=== PATIENT | female | born 1980 | race Caucasian/White ===

== ENCOUNTER → 2016-10-08 | Outpatient (CLI) | payer OTHER ==
[~2016-10-08] MED LIST: /BACL20TA PO; /LAMO10TA PO; /METH500TA PO; /ONDA4TA JT; /PANT40TA OR; /PANT40TA PO; /PREG100CA PO; /PROC25SU PO; /QUET25TA PO; ABIL15TA PO; ADEK; ADEK PO; AMIT10TA PO; AMIT25TA PO; AMIT25TA10 PO; AMIT50TA PO; AUGM875T27 PO; BACL-67 PO; BACL10TA2 OR; BENT10CA PO; BENZ1TA PO; BIOT5000 PO; BIOT50004 PO; BIOTENE PO; BOTO10VL IM; BUTR10DI2 TD; CALCIUM PO; CALCLIQ4 PO; CALCTAB68 PO; CAMP333T PO; CARA1SUS PO; CARA1TAB2 PO; CHAN1PAK9 PO; CHLO500TA PO; CIPR500T19 PO; CLAR5CHW OR; CLEO150C PO; COLA50CA3 PO; COLACE PO; CYCL10TA3 PO; CYMB1CAP PO; DHEA OR; DHEA PO; DICLOFENAC; DOCQ100C PO; DOXE150C7 PO; DOXY-197 PO; DOXY20TA OR; EQL400TA PO; ESTR0.5T3 PV; FENT12DI2 TD; FENT75DI18 TD; FERR325T OR; FESO4 OR; FLEX10TA2 PO; FLUC10TA PO; Fentanyl Patch TD; Flexeril PO; GABA-283 PO; GABA300C3 PO; HYDRPOW48 XX; IMIT4KIT SC; IMIT4KIT2 SC; IMIT50TA PO; IRON325T3 PO; Imitrex PO; KETO30VL PO; KLON1TAB OR; KLON1TAB PO; LORA10TA2 PO; LUNE3TAB48 PO; LYRI150C PO; LYRI75CA PO; MAGN250T PO; MAPA325T2 PO; MEGE40TA PO; MIRA0.5T PO; MULTCAP11 PO; MULTTAB24 PO; MULTTAB4 PO; NARA2.5T PO; NICO21DI24 TD; NIFE10CA2 PO; NORC5TAB PO; NORCO OR; NORT50CA PO; OMEP20CA3 PO; OXYC1SOL PO; OXYC5CAP2 PO; OXYC5TAB2 PO; OXYCO5TA PO; OYST500T50 PO; PERC5TAB6 PO; PERCTAB PO; PREG50CA PO; PREM0.45 PO; PROC10CA PO; PROC30TA PO; PROC90TA PO; PROM-190 PO; PROM25TA PO; PROT1TAB2 PO; PROTPAK PO; PROZ20CA11 PO; PROZ40CA OR; PYRI200T5 PO; RITA10TA PO; RITA20CA PO; ROBA750T4 PO; SAPH1SUB10 SL; SAPH1SUB9 SL; SENN8.6C PO; SERO200T PO; SERO50TA PO; SOMA350T OR; STRA80CA PO; SUCR1TA PO; TIZA4CAP3 PO; TIZA4TAB3 PO; TRIL1TAB PO; TRIL300S PO; TYLE325T5 PO; TYLE500T78 PO; Tylenol PO; VALI10TA PO; VALI5TAB PO; VARE1TA PO; VIBR100C OR; VICO5TAB; VIST25CA PO; VIST50CA PO; VIT B12 PO; VITA100037 PO; VITATAB11 PO; VYVA50CA PO; VYVA70CA3 PO; XANA0.5T OR; ZETONNA; ZOFR20TA PO; ZOFR4SOL PO; ZOFRAN PO; ZOLO100T PO; ZYPR10TA PO; ZYRT10CA PO; [UNRECOGNIZED DRUG - CODE]; [UNRECOGNIZED DRUG - CODE]; [UNRECOGNIZED DRUG - CODE] OR; [UNRECOGNIZED DRUG - CODE] PO; [UNRECOGNIZED DRUG - CODE] PO; [UNRECOGNIZED DRUG - CODE] PO; [UNRECOGNIZED DRUG - CODE] PO; [UNRECOGNIZED DRUG - CODE] PR; [UNRECOGNIZED DRUG - CODE] TOP; [UNRECOGNIZED DRUG - OTHER] PO; [UNRECOGNIZED DRUG - OTHER] PO; [UNRECOGNIZED DRUG - OTHER] PO; anexsia PO; atarax PO; calci; phenergan PO; voltaren gel; voltaren gel 1% TOP
--- NOTE | 2016-10-08 15:37 | REP ---
CT chest without contrast, 10/08/2016: Indication: Productive cough, fever chills, aspiration. Abnormal chest radiograph; history of prior gastric bypass surgery. Comparison made with prior chest radiograph 03/12/2016, 12/09/2015, 11/30/2015. Technique: 3 mm contiguous spiral axial sections performed through chest without contrast. Comparison: CTs of chest 03/12/2016, 12/09/2015, 11/30/2015, chest radiograph 03/16/2014 Technique: 3 mm spiral axial sections were performed through the chest without IV contrast administration. Findings: Thoracic aorta without aneurysm. The heart is of normal size. There are left and right-sided superior vena cavas noted as anatomic variant. There are no pathologically enlarged mediastinal or hilar lymph nodes. There is some pleural thickening within the superior lateral aspect of the right major fissure as well as the right minor fissure. Nodular pleural thickening is seen within the right inferior chest. Previous abscess in the region of the minor fissure seen 12/09/2015 is significantly improved and/or resolved with residual pleuro-parenchymal scarring. The left lung is clear. Visualized portions of liver, spleen, pancreas are unremarkable. There has been a prior cholecystectomy. Patient has had prior gastric bypass surgery. Impression. 1. Scarring within the minor fissure. Some pleural thickening in this location as well. Findings are not significantly changed from 03/12/2016, and significantly improved from 12/09/2015. Recommend follow-up CT chest 3-6 months. 2. Prior gastric bypass procedure and cholecystectomy. Signed by Mable Henson MD 10/08/2016 08:32 P
== END ==
LOC: M RAD 07:17
PROVIDERS: ATTEND Physician Assistant
DX: R93.8 Abnormal findings on diagnostic imaging of other specified body structures (principal); Z98.84 Bariatric surgery status; Z90.49 Acquired absence of other specified parts of digestive tract

== ENCOUNTER 2016-10-11 13:11 | Emergency (ER) | payer OTHER ==
[2016-10-11] MEDS ORDERED: ACETAMINOPHEN 325 MG TAB As Ordered ONE (14:33)
[2016-10-11] MEDS ORDERED: ADACEL/BOOSTRIX VACCINE (DIPHTH/PERTUSS/ACELL/TETANUS)0.5ML SYR (90715) As Ordered ONE (14:33)
--- NOTE | 2016-10-11 16:04 | REP ---
LEFT KNEE, FIVE VIEWS: HISTORY: Injury. There is no acute fracture or dislocation. The joint spaces are normal in appearance. IMPRESSION: There is no acute fracture or dislocation. Signed by Mino Lomax MD 10/11/2016 04:11 P
--- NOTE | 2016-10-11 16:10 | EDDOCDS ---
Physician Documentation [facility] Name: Alyssa Garvey Age: 36 yrs Sex: Female : 1980 Arrival Date: 10/11/2016 Time: 13:11 Bed PR Private MD: Sushant Hanson R. Disposition: 10/11/16 15:58 Discharged to Home/Self Care. Impression: Fall due to ice and snow, Abrasion of right hand, Abrasion, left knee, Strain of muscle and tendon of back wall of thorax. - Condition is Stable. - Discharge Instructions: Abrasion, Muscle Strain. - Medication Reconciliation, Local Pharmacy Hours form. - Follow up: Emergency Department; When: As needed; Reason: Worsening of conditions. Follow up: Private Physician; When: 2 - 3 days; Reason: Wound/Symptom Recheck, Recheck today's complaints, Continuance of care. - Problem is new. - Symptoms are unchanged. - Notes: YOUR XRAYS SHOWED SOME DEGENERATIVE DISC DISEASE IN YOUR BACK, THAT MEANS THE DISC SPACES NARROW WE AGE AND THIS CAN BE NORMAL. THERE IS NO FRACTURES ON YOUR XRAYS TODAY. YOU CAN TAKE TYLENOL OR MOTRIN DIRECTED FOR YOUR PAIN. PLEASE FOLLOW UP WITH YOUR PRIMARY CARE PROVIDER IN THE NEXT FEW DAYS TO RECHECK YOUR SYMPTOMS. Historical: - Allergies: Dilaudid; Gastrografin; Ketorolac; Latex; Morphine; - Home Meds: 1. Xanax 1 mg Oral tab four times a day (Last dose: 10/11/2016 10:30) 2. saphris 10 mg twice a day (Last dose: 10/11/2016 10:30) 3. Phenergan 25 mg Oral tab every 4-6 hours 4. AMURGE PRN MIGRAINE 5. Imitrex 6 mg/0.5 mL Sub-Q soln 0.5 mL as needed 6. Vyvanse 70 mg oral cap 1 cap once daily 7. Singulair 10 mg Oral tab 1 tab once daily 8. Claritin 10 mg Oral tab 1 tab once daily 9. Flonase 50 mcg/actuation Nasal spsn 1 spray once daily 10. Chantix 0.5 mg Oral tab - PMHx: Bipolar disorder; Chronic Back pain; GERD; - PSHx: revisional gastric bypass; back surgery; Gastric Bypass; Hysterectomy; Endoscopy, Upper; Colonoscopy; Cholecystectomy; Appendectomy; - Social history: Smoking status: Patient uses tobacco products, current every day smoker. No barriers to communication noted, The patient speaks fluent Nicaraguan, Speaks appropriately for age. - Family history: Not pertinent. - : The pt / caregiver states he / she is not on anticoagulants. Home medication list is obtained from the patient. - Exposure Risk Screening:: None identified. 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 7 in. (170.18 cm) (R); Pain 9/10; 16:07 js13 13:12 Body Mass Index 28.19 (81.65 kg, 170.18 cm) elp 16:07 REFUSED D/C VS js13 MDM: 14:30 Tetanus- Diptheria-Acellular Pertussis 0.5 ml IM once; Routine booster 10-64yrs, >64 dt4 with child contact [place] [employer] ordered. 14:30 Acetaminophen Tablet 975 mg PO once ordered. dt4 14:31 Knee, Complete Ordered. EDMS 14:31 Hand, Complete Ordered. EDMS 14:32 Spine, Thoracic 3 Views Ordered. EDMS 14:32 Spine. Lumbosacral, Complete Ordered. EDMS 14:34 Urinalysis Ordered. EDMS 14:34 Urine Culture Ordered. EDMS 15:00 Financial registration complete. mm15 15:21 [facility] Payment Agreement was scanned into [employer] and attached to record. 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 Exp: 11/21/2018. Lot #: [id number]. } Route: IM; Site: left deltoid; 14:51 Drug: Acetaminophen 975 mg [acetaminophen 325 mg tablet (3 tabs)] Route: PO; [facility] Signatures: Dispatcher [employer] Monica Torres, RN RN srm Janice Crane RN RN js13 Hola Wilcox mm15 Suzanna Ireland PA-C PA-C dt4 Leora Fishman RN [facility] The chart was reviewed and I authenticate all verbal orders and agree with the evaluation and treatment provided.Attachments: 15:21 [facility] Payment Agreement mm15 MTDD
--- NOTE | 2016-10-11 16:10 | EDDOCDS ---
Nurse's Notes [facility] Name: Alyssa Garvey Age: 36 yrs Sex: Female : 1980 Arrival Date: 10/11/2016 Time: 13:11 Bed PR Private MD: Sushant Hanson R. Diagnosis: Fall due to ice and snow;Abrasion of right hand;Abrasion, left knee;Strain of muscle and tendon of back wall of thorax Presentation: 10/11 13:15 Presenting complaint: Patient states: fell twice last night- everything form shoulder srm to hips hurts. " i also have blood coming out of my vagina" ( started this am). Presenting complaint: Patient states: i drink a lot of water but doesn't pee a lot- sees PMD for those symptoms. Adult Sepsis Screening: The patient does not have new or worsening altered mentation. Patient's respiratory rate is less than 22. Systolic blood pressure is greater than 100. Patient has a qSOFA score of 0- Negative Sepsis Screen. Suicide/Homicide risk assessment- the patient denies having any suicidal and/or homicidal ideations and does not present with any other emotional, behavioral or mental health complaints. 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 Transition of care: patient was not received from another setting of care. 13:15 Method Of Arrival: Walkin/Carried/Asstd srm 13:15 Acuity: SANJUANITA Level 3 srm Triage Assessment: 13:21 General: Appears in no apparent distress, Behavior is appropriate for age, cooperative. srm Pain: Pain currently is 10 out of 10 on a pain scale. HIV screening NA for this visit Offered previously. Musculoskeletal: Reports from shoulders to hips hurts. 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 Xanax 1 mg Oral tab four times a day (Last dose: 10/11/2016 10:30) 2. saphris 10 mg twice a day (Last dose: 10/11/2016 10:30) 3. Phenergan 25 mg Oral tab every 4-6 hours 4. AMURGE PRN MIGRAINE 5. Imitrex 6 mg/0.5 mL Sub-Q soln 0.5 mL as needed 6. Vyvanse 70 mg oral cap 1 cap once daily 7. Singulair 10 mg Oral tab 1 tab once daily 8. Claritin 10 mg Oral tab 1 tab once daily 9. Flonase 50 mcg/actuation Nasal spsn 1 spray once daily 10. Chantix 0.5 mg Oral tab - PMHx: Bipolar disorder; Chronic Back pain; GERD; - PSHx: revisional gastric bypass; back surgery; Gastric Bypass; Hysterectomy; Endoscopy, Upper; Colonoscopy; Cholecystectomy; Appendectomy; - Social history: Smoking status: Patient uses tobacco products, current every day smoker. No barriers to communication noted, The patient speaks fluent Divehi, Speaks appropriately for age. - Family history: Not pertinent. - : The pt / caregiver states he / she is not on anticoagulants. Home medication list is obtained from the patient. - Exposure Risk Screening:: None identified. Screenin:07 Screening information is obtained from the patient. Fall risk: At risk due to prior [facility] history of falls. Assistance ADL's: requires no assistance with activities of daily living. Abuse/DV Screen: The patient / caregiver reports he/she is: not in a situation that causes fear, pain or injury. Nutritional screening: No deficits noted. Advance Directives: There is no active DNR order. home support is adequate. Assessment: 16:07 General: Appears in no apparent distress, Behavior is PATIENT STATES THIS IS "BULLSHIT" [facility] AND THAT SHE IS GOING TO [place] TO GET HER FENTANYL THAT WILL WORK FOR HER PAIN. . Pain: Location: back. Neurological: Level of Consciousness is awake, alert. Respiratory: No deficits noted. Derm: Skin is pink, warm & dry. Musculoskeletal: Range of motion intact in all extremities. Vital Signs: 13:12 BP 165 / 97; Pulse 115; Resp 20; Temp 97.3(O); Pulse Ox 99% on R/A; Weight 81.65 kg el (R); Height 5 ft. 7 in. (170.18 cm) (R); Pain 9/10; 16:07 js13 13:12 Body Mass Index 28.19 (81.65 kg, 170.18 cm) [facility] 16:07 REFUSED D/C VS 13 Vitals: 13:12 Log In Time: October 11, 2016 at 13:09. elp ED Course: 13:12 Patient visited by Anisa Escobar PCA. elp 13:12 Sushant Hanson is Private Physician. elp 13:12 Patient moved to Waiting elp 13:14 Patient visited by Anisa Escobar PCA. elp 13:14 Patient moved to Pre RCE elp 13:17 Triage Initiated srm 14:03 Patient visited by Filomena Hutson PCA. jb5 14:03 Patient moved to Triage 2 jb5 14:09 [facility] dt4 14:09 Antony Hernandez MD is Attending Physician. dt4 14:09 Patient visited by Suzanna Ireland PA-C. dt4 14:45 Urinalysis Sent. jb5 14:45 Urine Culture Sent. jb5 14:50 Patient moved to TR2 [facility] 15:12 Patient visited by Filomena Hutson PCA. jb5 15:21 ON LICENSE OF [facility] Payment Agreement was scanned into [employer] and attached to record. mm15 16:05 Patient moved to PR1 / 25 [facility] 16:07 The patient / caregiver is instructed regarding the plan of care and ED course. js13 16:07 No IV's were initiated during this patient's visit. No procedures done that require [facility] assistance. 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 Lot #: [id number]. } Route: IM; Site: left deltoid; 14:51 Drug: Acetaminophen 975 mg [acetaminophen 325 mg tablet (3 tabs)] Route: PO; [facility] Order Results: There are currently no results for this order. Outcome: 15:58 Discharge ordered by Provider. dt4 16:07 Discharge Assessment: Patient awake, alert and oriented x 3. No cognitive and/or js13 functional deficits noted. Patient verbalized understanding of disposition instructions. patient administered narcotics - no. The following High Risk Discharge criteria are identified: None. Discharged to home ambulatory, with parent. Condition: stable. Discharge instructions given to patient, Instructed on discharge instructions, follow up and referral plans. Demonstrated understanding of instructions, Pt was receptive of discharge instructions/ teaching. No special radiology studies were completed. Property :Personal belongings accompany Pt. 16:09 Patient left the ED. js13 Signatures: Monica Graves, RN RN Filomena Corrales, CHEMICAL RADIATION TECHNICIAN CHEMICAL RADIATION TECHNICIAN jb5 Janice Crane RN RN js13 Leora FishmanRN RN [facility] Hola Wilcox mm15 Anisa Escobar, CHEMICAL RADIATION TECHNICIAN CHEMICAL RADIATION TECHNICIAN elp Suzanna Ireland PA-C PA-C dt4 MTDD
--- NOTE | 2016-10-12 14:40 | REP ---
Lumbosacral spine series, five view exam 10/11/2016 Comparison: MRI of the lumbosacral spine performed 09/04/2016, CT abdomen and pelvis 12/12/15 Findings: There is mild generalized osteopenia. There is no acute fracture or spondylolisthesis in lumbosacral spine. Moderate to advanced disc space narrowing is noted at L4-5. There is mild disc space narrowing at L5- S1. The visualized portions of the SI joints and sacrum and visualized portions of coccyx are with the within normal limits. There is dilatation of colon. Thumbprinting is suggested within the region of the hepatic flexure. Impression 1. Moderate to advanced degenerative disc changes at L4-5 ;mild disc space narrowing/degenerative disc changes at L5- S1. 2. Generalized osteopenia. 3. Colonic distension, suggests ileus. Also thumb printing is suggested within the region of the hepatic flexure and can indicate mural edema within bowel. This can be seen with inflammatory, infectious or ischemic bowel. Clinical follow-up recommended Signed by Mable Henson MD 10/12/2016 02:31 P
--- NOTE | 2016-10-12 14:50 | REP ---
Thoracic spine series 10/11/16 Indication: Back pain status post fall findings Comparison: Thoracic spine series 10/24/2015 Findings: There is no evidence of paraspinal widening. The mediastinal silhouette is unchanged and within normal limits. There is generalized osteopenia within the thoracic spine. There is no visualized acute fracture . There is very minimal thoracic levoscoliosis again noted. Surgical clips are noted in the right upper quadrant and left upper quadrant Impression 1. Osteopenia; no evidence of acute fracture or paraspinal widening in the thoracic spine Signed by Mable Henson MD 10/12/2016 02:41 P
--- NOTE | 2016-10-12 14:53 | REP ---
Four view right hand series 10/11 16 Indication: Injury Findings: There is mild generalized osteopenia. There is no acute fracture, subluxation, or dislocation within the right hand. The carpal bones are without fracture or displacement. Subchondral cystic changes are seen within the scaphoid and lunate, and are nonspecific. Visualized portions of distal radius and ulna are intact. Impression: 1. Mild generalized osteopenia . 2. No acute fracture or dislocation within the right hand or wrist. Signed by Mable Henson MD 10/12/2016 02:44 P
--- NOTE | 2016-10-15 09:25 | EDDOCDS ---
Physician Documentation [facility] Name: Alyssa Garvey Age: 36 yrs Sex: Female : 1980 Arrival Date: 10/11/2016 Time: 13:11 Bed PR Private MD: Natividad Hanson R. Disposition: 10/11/16 15:58 Discharged to Home/Self Care. Impression: Fall due to ice and snow, Abrasion of right hand, Abrasion, left knee, Strain of muscle and tendon of back wall of thorax. - Condition is Stable. - Discharge Instructions: Abrasion, Muscle Strain. - Medication Reconciliation, Local Pharmacy Hours form. - Follow up: Emergency Department; When: As needed; Reason: Worsening of conditions. Follow up: Private Physician; When: 2 - 3 days; Reason: Wound/Symptom Recheck, Recheck today's complaints, Continuance of care. - Problem is new. - Symptoms are unchanged. - Notes: YOUR XRAYS SHOWED SOME DEGENERATIVE DISC DISEASE IN YOUR BACK, THAT MEANS THE DISC SPACES NARROW WE AGE AND THIS CAN BE NORMAL. THERE IS NO FRACTURES ON YOUR XRAYS TODAY. YOU CAN TAKE TYLENOL OR MOTRIN DIRECTED FOR YOUR PAIN. PLEASE FOLLOW UP WITH YOUR PRIMARY CARE PROVIDER IN THE NEXT FEW DAYS TO RECHECK YOUR SYMPTOMS. Historical: - Allergies: Dilaudid; Gastrografin; Ketorolac; Latex; Morphine; - Home Meds: 1. Xanax 1 mg Oral tab four times a day (Last dose: 10/11/2016 10:30) 2. saphris 10 mg twice a day (Last dose: 10/11/2016 10:30) 3. Phenergan 25 mg Oral tab every 4-6 hours 4. AMURGE PRN MIGRAINE 5. Imitrex 6 mg/0.5 mL Sub-Q soln 0.5 mL as needed 6. Vyvanse 70 mg oral cap 1 cap once daily 7. Singulair 10 mg Oral tab 1 tab once daily 8. Claritin 10 mg Oral tab 1 tab once daily 9. Flonase 50 mcg/actuation Nasal spsn 1 spray once daily 10. Chantix 0.5 mg Oral tab - PMHx: Bipolar disorder; Chronic Back pain; GERD; - PSHx: revisional gastric bypass; back surgery; Gastric Bypass; Hysterectomy; Endoscopy, Upper; Colonoscopy; Cholecystectomy; Appendectomy; - Social history: Smoking status: Patient uses tobacco products, current every day smoker. No barriers to communication noted, The patient speaks fluent Moldovan, Speaks appropriately for age. - Family history: Not pertinent. - : The pt / caregiver states he / she is not on anticoagulants. Home medication list is obtained from the patient. - Exposure Risk Screening:: None identified. 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 7 in. (170.18 cm) (R); Pain 9/10; 16:07 js13 13:12 Body Mass Index 28.19 (81.65 kg, 170.18 cm) elp 16:07 REFUSED D/C VS js13 MDM: 14:30 Tetanus- Diptheria-Acellular Pertussis 0.5 ml IM once; Routine booster 10-64yrs, >64 dt4 with child contact [place] Omnicell ordered. 14:30 Acetaminophen Tablet 975 mg PO once ordered. dt4 14:31 Knee, Complete Ordered. EDMS 14:31 Hand, Complete Ordered. EDMS 14:32 Spine, Thoracic 3 Views Ordered. EDMS 14:32 Spine. Lumbosacral, Complete Ordered. EDMS 14:34 Urinalysis Ordered. EDMS 14:34 Urine Culture Ordered. EDMS 15:00 Financial registration complete. mm15 15:21 [facility] Payment Agreement was scanned into 24h00 and attached to record. mm15 10/12 09:32 T-Sheet-- Draft Copy was scanned into 24h00 and attached to record. seh 12:25 Other: DRUG UTILIZATION REPORT was scanned into 24h00 and attached to record. gb 12:25 Radiology Report was scanned into 24h00 and attached to record. gb 19:33 ED course: natividad hanson faxed formal report of ls spine film for fu mlg. ml Administered Medications: 10/11 14:51 Drug: Tetanus- Diptheria-Acellular Pertussis 0.5 ml [diphth,pertussis(acel),tetanus 2.5 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 Lot #: [id number]. } Route: IM; Site: left deltoid; 14:51 Drug: Acetaminophen 975 mg [acetaminophen 325 mg tablet (3 tabs)] Route: PO; [facility] Signatures: Dispatcher [employer] EDTobi Cobos MD MD Monica Graves RN RN [facility] Soniya Londono, Reg Reg Janice Crane RN RN js13 Hola Wilcox mm15 Suzanna Ireland PA-C PA-C dt4 Nia Oneil Jane RN [facility] The chart was reviewed and I authenticate all verbal orders and agree with the evaluation and treatment provided.Attachments: 15:21 [facility] Payment Agreement mm15 10/12 09:32 T-Sheet-- Draft Copy [facility] Chart Complete MTDD
--- NOTE | 2016-10-15 09:25 | EDDOCDS ---
Nurse's Notes [facility] Name: Alyssa Garvey Age: 36 yrs Sex: Female : 1980 Arrival Date: 10/11/2016 Time: 13:11 Bed PR Private MD: Sushant Hanson R. Diagnosis: Fall due to ice and snow;Abrasion of right hand;Abrasion, left knee;Strain of muscle and tendon of back wall of thorax Presentation: 10/11 13:15 Presenting complaint: Patient states: fell twice last night- everything form shoulder srm to hips hurts. " i also have blood coming out of my vagina" ( started this am). Presenting complaint: Patient states: i drink a lot of water but doesn't pee a lot- sees PMD for those symptoms. Adult Sepsis Screening: The patient does not have new or worsening altered mentation. Patient's respiratory rate is less than 22. Systolic blood pressure is greater than 100. Patient has a qSOFA score of 0- Negative Sepsis Screen. Suicide/Homicide risk assessment- the patient denies having any suicidal and/or homicidal ideations and does not present with any other emotional, behavioral or mental health complaints. Status: Patient is not a community service technician or dependent. Transition of care: patient was not received from another setting of care. 13:15 Method Of Arrival: Walkin/Carried/Asstd srm 13:15 Acuity: SANJUANITA Level 3 srm Triage Assessment: 13:21 General: Appears in no apparent distress, Behavior is appropriate for age, cooperative. srm Pain: Pain currently is 10 out of 10 on a pain scale. HIV screening NA for this visit Offered previously. Musculoskeletal: Reports from shoulders to hips hurts. 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 Xanax 1 mg Oral tab four times a day (Last dose: 10/11/2016 10:30) 2. saphris 10 mg twice a day (Last dose: 10/11/2016 10:30) 3. Phenergan 25 mg Oral tab every 4-6 hours 4. AMURGE PRN MIGRAINE 5. Imitrex 6 mg/0.5 mL Sub-Q soln 0.5 mL as needed 6. Vyvanse 70 mg oral cap 1 cap once daily 7. Singulair 10 mg Oral tab 1 tab once daily 8. Claritin 10 mg Oral tab 1 tab once daily 9. Flonase 50 mcg/actuation Nasal spsn 1 spray once daily 10. Chantix 0.5 mg Oral tab - PMHx: Bipolar disorder; Chronic Back pain; GERD; - PSHx: revisional gastric bypass; back surgery; Gastric Bypass; Hysterectomy; Endoscopy, Upper; Colonoscopy; Cholecystectomy; Appendectomy; - Social history: Smoking status: Patient uses tobacco products, current every day smoker. No barriers to communication noted, The patient speaks fluent Frisian, Speaks appropriately for age. - Family history: Not pertinent. - : The pt / caregiver states he / she is not on anticoagulants. Home medication list is obtained from the patient. - Exposure Risk Screening:: None identified. Screenin:07 Screening information is obtained from the patient. Fall risk: At risk due to prior [facility] history of falls. Assistance ADL's: requires no assistance with activities of daily living. Abuse/DV Screen: The patient / caregiver reports he/she is: not in a situation that causes fear, pain or injury. Nutritional screening: No deficits noted. Advance Directives: There is no active DNR order. home support is adequate. Assessment: 16:07 General: Appears in no apparent distress, Behavior is PATIENT STATES THIS IS "BULLSHIT" [facility] AND THAT SHE IS GOING TO [place] TO GET HER FENTANYL THAT WILL WORK FOR HER PAIN. . Pain: Location: back. Neurological: Level of Consciousness is awake, alert. Respiratory: No deficits noted. Derm: Skin is pink, warm & dry. Musculoskeletal: Range of motion intact in all extremities. Vital Signs: 13:12 BP 165 / 97; Pulse 115; Resp 20; Temp 97.3(O); Pulse Ox 99% on R/A; Weight 81.65 kg el (R); Height 5 ft. 7 in. (170.18 cm) (R); Pain 9/10; 16:07 js13 13:12 Body Mass Index 28.19 (81.65 kg, 170.18 cm) [facility] 16:07 REFUSED D/C VS 13 Vitals: 13:12 Log In Time: October 11, 2016 at 13:09. elp ED Course: 13:12 Patient visited by Anisa Escobar PCA. elp 13:12 Sushant Hanson is Private Physician. elp 13:12 Patient moved to Waiting elp 13:14 Patient visited by Anisa Escobar PCA. elp 13:14 Patient moved to Pre RCE elp 13:17 Triage Initiated srm 14:03 Patient visited by Filomena Hutson PCA. jb5 14:03 Patient moved to Triage 2 jb5 14:09 Suzanna Ireland PA-C is PHCP. dt4 14:09 Antony Hernandez MD is Attending Physician. dt4 14:09 Patient visited by Suzanna Ireland PA-C. dt4 14:45 Urinalysis Sent. jb5 14:45 Urine Culture Sent. jb5 14:50 Patient moved to TR2 cj 15:12 Patient visited by Filomena Hutson PCA. jb5 15:21 [facility] Payment Agreement was scanned into [employer] and attached to record. mm15 16:05 Patient moved to PR1 / 25 [facility] 16:07 The patient / caregiver is instructed regarding the plan of care and ED course. js13 16:07 No IV's were initiated during this patient's visit. No procedures done that require js13 assistance. 16:16 Knee, Complete Returned. EDMS 10/12 09:32 T-Sheet-- Draft Copy was scanned into [employer] and attached to record. seh 12:25 Other: DRUG UTILIZATION REPORT was scanned into [employer] and attached to record. gb 12:25 Radiology Report was scanned into [employer] and attached to record. gb 15:09 Spine. Lumbosacral, Complete Returned. EDMS 15:09 Spine, Thoracic 3 Views Returned. EDMS 15:09 Hand, Complete Returned. EDMS Administered Medications: 10/11 14:51 Drug: Tetanus- Diptheria-Acellular Pertussis 0.5 ml [diphth,pertussis(acel),tetanus 2.5 [facility] Lf unit-8 mcg-5 Lf/0.5mL IM syringe (0.5 mL)] {Bill Board Poster: [employer]. Exp: 11/21/2018. Lot #: [id number]. } Route: IM; Site: left deltoid; 14:51 Drug: Acetaminophen 975 mg [acetaminophen 325 mg tablet (3 tabs)] Route: PO; [facility] Order Results: Lab Order: Urine Culture; SPEC'M 10/11/16 14:47 Test: URINE CULTURE; Value: URINE CULTURE RESULT NO GROWTH; Status: F Radiology Order: Knee, Complete Test: Knee, Complete REASON FOR EXAMINATION: left knee injury; LEFT KNEE, FIVE VIEWS:; ; HISTORY: Injury.; ; There is no acute fracture or dislocation. The joint spaces are normal in; appearance.; ; IMPRESSION:; ; There is no acute fracture or dislocation.; ; ; Signed by; Mino Lomax MD 10/11/2016 04:11 P; Radiology Order: Hand, Complete Test: Hand, Complete REASON FOR EXAMINATION: right hand injury; Four view right hand series 10/11 16; ; Indication: Injury; ; Findings: There is mild generalized osteopenia. There is no acute fracture,; subluxation, or dislocation within the right hand. The carpal bones are without; fracture or displacement. Subchondral cystic changes are seen within the; scaphoid and lunate, and are nonspecific. Visualized portions of distal radius; and ulna are intact.; ; Impression:; ; 1. Mild generalized osteopenia .; 2. No acute fracture or dislocation within the right hand or wrist.; ; ; Signed by; Mable Henson MD 10/12/2016 02:44 P; Radiology Order: Spine, Thoracic 3 Views Test: Spine, Thoracic 3 Views REASON FOR EXAMINATION: mid back pain, s/p fall on ice; Thoracic spine series 10/11/16; ; Indication: Back pain status post fall findings; ; Comparison: Thoracic spine series 10/24/2015; ; Findings: There is no evidence of paraspinal widening. The mediastinal; silhouette is unchanged and within normal limits.; ; There is generalized osteopenia within the thoracic spine. There is no; visualized acute fracture . There is very minimal thoracic levoscoliosis again; noted.; ; Surgical clips are noted in the right upper quadrant and left upper quadrant; ; Impression; 1. Osteopenia; no evidence of acute fracture or paraspinal widening in the; thoracic spine; ; ; Signed by; Mable Henson MD 10/12/2016 02:41 P; Radiology Order: Spine. Lumbosacral, Complete Test: Spine. Lumbosacral, Complete REASON FOR EXAMINATION: low back pain, s/p fall on ice; Lumbosacral spine series, five view exam 10/11/2016; ; Comparison: MRI of the lumbosacral spine performed 09/04/2016, CT abdomen and; pelvis 12/12/15; ; Findings: There is mild generalized osteopenia. There is no acute fracture or; spondylolisthesis in lumbosacral spine. Moderate to advanced disc space; narrowing is noted at L4-5. There is mild disc space narrowing at L5- S1.; ; The visualized portions of the SI joints and sacrum and visualized portions of; coccyx are with the within normal limits.; ; There is dilatation of colon. Thumbprinting is suggested within the region of the; hepatic flexure.; ; Impression; 1. Moderate to advanced degenerative disc changes at L4-5 ;mild disc space; narrowing/degenerative disc changes at L5- S1.; ; 2. Generalized osteopenia.; ; 3. Colonic distension, suggests ileus. Also thumb printing is suggested within; the region of the hepatic flexure and can indicate mural edema within bowel.; This can be seen with inflammatory, infectious or ischemic bowel. Clinical; follow-up recommended; ; ; Signed by; Mable Henson MD 10/12/2016 02:31 P; Outcome: 15:58 Discharge ordered by Provider. dt4 16:07 Discharge Assessment: Patient awake, alert and oriented x 3. No cognitive and/or js13 functional deficits noted. Patient verbalized understanding of disposition instructions. patient administered narcotics - no. The following High Risk Discharge criteria are identified: None. Discharged to home ambulatory, with parent. Condition: stable. Discharge instructions given to patient, Instructed on discharge instructions, follow up and referral plans. Demonstrated understanding of instructions, Pt was receptive of discharge instructions/ teaching. No special radiology studies were completed. Property :Personal belongings accompany Pt. 16:09 Patient left the ED. js13 Signatures: Dispatcher [employer] EDMS Monica Graves, RN RN [facility] Soniya Londono, Antonio Reg Filomena Medina, AGENT PRODUCER AGENT PRODUCER jb5 Janice Crane RN RN js13 Leora Fishman RN RN [facility] Hola Wilcox mm15 Anisa Escobar, AGENT PRODUCER AGENT PRODUCER elp Suzanna Ireland PA-C PA-C dt4 Nia Oneil Chart Complete MTDD
--- NOTE | 2016-10-15 09:25 | EDDOCDS ---
Physician Documentation [facility] Name: Alyssa Garvey Age: 36 yrs Sex: Female : 1980 Arrival Date: 10/11/2016 Time: 13:11 Bed PR Private MD: Natividad Hanson R. Disposition: 10/11/16 15:58 Discharged to Home/Self Care. Impression: Fall due to ice and snow, Abrasion of right hand, Abrasion, left knee, Strain of muscle and tendon of back wall of thorax. - Condition is Stable. - Discharge Instructions: Abrasion, Muscle Strain. - Medication Reconciliation, Local Pharmacy Hours form. - Follow up: Emergency Department; When: As needed; Reason: Worsening of conditions. Follow up: Private Physician; When: 2 - 3 days; Reason: Wound/Symptom Recheck, Recheck today's complaints, Continuance of care. - Problem is new. - Symptoms are unchanged. - Notes: YOUR XRAYS SHOWED SOME DEGENERATIVE DISC DISEASE IN YOUR BACK, THAT MEANS THE DISC SPACES NARROW WE AGE AND THIS CAN BE NORMAL. THERE IS NO FRACTURES ON YOUR XRAYS TODAY. YOU CAN TAKE TYLENOL OR MOTRIN DIRECTED FOR YOUR PAIN. PLEASE FOLLOW UP WITH YOUR PRIMARY CARE PROVIDER IN THE NEXT FEW DAYS TO RECHECK YOUR SYMPTOMS. Historical: - Allergies: Dilaudid; Gastrografin; Ketorolac; Latex; Morphine; - Home Meds: 1. Xanax 1 mg Oral tab four times a day (Last dose: 10/11/2016 10:30) 2. saphris 10 mg twice a day (Last dose: 10/11/2016 10:30) 3. Phenergan 25 mg Oral tab every 4-6 hours 4. AMURGE PRN MIGRAINE 5. Imitrex 6 mg/0.5 mL Sub-Q soln 0.5 mL as needed 6. Vyvanse 70 mg oral cap 1 cap once daily 7. Singulair 10 mg Oral tab 1 tab once daily 8. Claritin 10 mg Oral tab 1 tab once daily 9. Flonase 50 mcg/actuation Nasal spsn 1 spray once daily 10. Chantix 0.5 mg Oral tab - PMHx: Bipolar disorder; Chronic Back pain; GERD; - PSHx: revisional gastric bypass; back surgery; Gastric Bypass; Hysterectomy; Endoscopy, Upper; Colonoscopy; Cholecystectomy; Appendectomy; - Social history: Smoking status: Patient uses tobacco products, current every day smoker. No barriers to communication noted, The patient speaks fluent Panamanian, Speaks appropriately for age. - Family history: Not pertinent. - : The pt / caregiver states he / she is not on anticoagulants. Home medication list is obtained from the patient. - Exposure Risk Screening:: None identified. 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 7 in. (170.18 cm) (R); Pain 9/10; 16:07 js13 13:12 Body Mass Index 28.19 (81.65 kg, 170.18 cm) elp 16:07 REFUSED D/C VS js13 MDM: 14:30 Tetanus- Diptheria-Acellular Pertussis 0.5 ml IM once; Routine booster 10-64yrs, >64 dt4 with child contact Iuka Omnicell ordered. 14:30 Acetaminophen Tablet 975 mg PO once ordered. dt4 14:31 Knee, Complete Ordered. EDMS 14:31 Hand, Complete Ordered. EDMS 14:32 Spine, Thoracic 3 Views Ordered. EDMS 14:32 Spine. Lumbosacral, Complete Ordered. EDMS 14:34 Urinalysis Ordered. EDMS 14:34 Urine Culture Ordered. EDMS 15:00 Financial registration complete. mm15 15:21 [facility] Payment Agreement was scanned into [employer] and attached to record. mm15 10/12 09:32 T-Sheet-- Draft Copy was scanned into [employer] and attached to record. seh 12:25 Other: DRUG UTILIZATION REPORT was scanned into [employer] and attached to record. gb 12:25 Radiology Report was scanned into [employer] and attached to record. gb 19:33 ED course: natividad hanson faxed formal report of ls spine film for fu mlg. ml Administered Medications: 10/11 14:51 Drug: Tetanus- Diptheria-Acellular Pertussis 0.5 ml [diphth,pertussis(acel),tetanus 2.5 [facility] Lf unit-8 mcg-5 Lf/0.5mL IM syringe (0.5 mL)] {Flue Lining Dipper: [employer]. Exp: 11/21/2018. Lot #: [id number]. } Route: IM; Site: left deltoid; 14:51 Drug: Acetaminophen 975 mg [acetaminophen 325 mg tablet (3 tabs)] Route: PO; [facility] Signatures: Dispatcher [employer] EDTobi Cobos MD MD Monica Graves RN RN [facility] Soniya Londono, Reg Reg Janice Crane RN RN js13 Hola Wilcox mm15 Suzanna Ireland PA-C PA-C dt4 Nia Oneil Jane RN [facility] The chart was reviewed and I authenticate all verbal orders and agree with the evaluation and treatment provided.Attachments: 15:21 [facility] Payment Agreement mm15 10/12 09:32 T-Sheet-- Draft Copy [facility] Chart Complete MTDD
== END 2016-10-11 16:09 | disposition home or self-care (01) ==
LOC: M ED 13:11
DX: S29.012A Strain of muscle and tendon of back wall of thorax, initial encounter (principal); S60.511A Abrasion of right hand, initial encounter; S80.212A Abrasion, left knee, initial encounter; W00.9XXA Unspecified fall due to ice and snow, initial encounter; Y92.019 Unspecified place in single-family (private) house as the place of occurrence of the external cause; Y93.9 Activity, unspecified; Y99.9 Unspecified external cause status; F31.9 Bipolar disorder, unspecified; G89.29 Other chronic pain; M54.9 Dorsalgia, unspecified; K21.9 Gastro-esophageal reflux disease without esophagitis; Z98.84 Bariatric surgery status; Z72.0 Tobacco use; Z79.899 Other long term (current) drug therapy; Z88.8 Allergy status to other drugs, medicaments and biological substances; Z88.5 Allergy status to narcotic agent; Z91.040 Latex allergy status

== ENCOUNTER 2016-10-12 22:17 | Emergency (ER) | payer OTHER | END 2016-10-12 22:46 | disposition left against medical advice (07) | LOC: M ED 22:17 | DX: N93.9 Abnormal uterine and vaginal bleeding, unspecified (principal); Z53.20 Procedure and treatment not carried out because of patient's decision for unspecified reasons ==

== ENCOUNTER 2016-10-22 17:06 | Emergency (ER) | payer OTHER ==
[~2016-10-22 17:06] MED LIST changes: -ISOVUE-370 76% 100ML VIAL (Q9967) As Ordered ONE
[2016-10-22] MEDS ORDERED: ONDANSETRON 4MG/2ML VIAL (J2405) As Ordered ONE (18:26)
[2016-10-22 18:54] LABS: MEAN CORPUSCULAR HEMOGLOBIN 27.9 pg (27.0-33.0); MEAN CORPUSCULAR HGB CONC 31.5 g/dl (32.0-36.5); MEAN CORPUSCULAR VOLUME 88.6 fl (80.0-96.0); RED CELL DISTRIBUTION WIDTH 16.5 % (11.5-14.5)
[2016-10-22 19:31] LABS: INR 0.91
[2016-10-22] MEDS ORDERED: MORPHINE 4 MG/ML 1ML SYRINGE As Ordered ONE (19:37)
[2016-10-22 19:47] LABS: ANION GAP 9 MEQ/L (8-16); BLOOD UREA NITROGEN 9 MG/DL (7-18); CALCIUM LEVEL 8.3 MG/DL (8.5-10.1); CARBON DIOXIDE LEVEL 28 MEQ/L (21-32); CHLORIDE LEVEL 105 MEQ/L (98-107); CREATININE FOR GFR 0.45 MG/DL (0.55-1.02); GLOMERULAR FILTRATION RATE > 60.0 (>60); GLUCOSE, FASTING 85 MG/DL (70-105); POTASSIUM SERUM 3.9 MEQ/L (3.5-5.1); SODIUM LEVEL 142 MEQ/L (136-145)
[2016-10-22] MEDS ORDERED: fentaNYL 100 MCG/2 ML INJECTION (J3010) As Ordered ONE (19:47)
--- NOTE | 2016-10-22 20:26 | EDDOCDS ---
Physician Documentation [facility] Name: Alyssa Garvey Age: 36 yrs Sex: Female : 1980 Arrival Date: 10/22/2016 Time: 17:06 Bed 8 Private MD: Sushant Hanson R. Disposition: 10/22/16 20:08 Discharged to Home/Self Care. Impression: Ileus, unspecified, Abdominal and pelvic pain. - Condition is Stable. - Discharge Instructions: Ileus, Abdominal Pain, Adult. - Prescriptions for Zofran 4 mg Oral Tablet - take 1 tablet by ORAL route 4 times per day As needed; 10 tablet. - Medication Reconciliation, Local Pharmacy Hours form. - Follow up: Private Physician; When: 2 - 3 days; Reason: Recheck today's complaints, Continuance of care. - Problem is an ongoing problem. - Symptoms are unchanged. Historical: - Allergies: Dilaudid; Gastrografin; Ketorolac; Latex; Morphine; - Home Meds: 1. Chantix 0.5 mg Oral tab 2. Xanax 1 mg Oral tab four times a day 3. Vyvanse 70 mg oral cap 1 cap once daily 4. Singulair 10 mg Oral tab 1 tab once daily 5. saphris 10 mg twice a day 6. Phenergan 25 mg Oral tab every 4-6 hours 7. Imitrex 6 mg/0.5 mL Sub-Q soln 0.5 mL as needed 8. ibuprofen 600 mg Oral tab 1 tab 4 times per day 9. Flonase 50 mcg/actuation Nasal spsn 1 spray once daily 10. Claritin 10 mg Oral tab 1 tab once daily 11. AMURGE PRN MIGRAINE - PMHx: Bipolar disorder; Chronic Back pain; GERD; lung abscesses; - PSHx: Gastric bypass; Hysterectomy; Back surgery; - Social history: Smoking status: Patient states former smoker of tobacco. No barriers to communication noted, The patient speaks fluent Latvian. - Family history: Not pertinent. - : The pt / caregiver states he / she is not on anticoagulants. Home medication list is obtained from the patient. - Exposure Risk Screening:: None identified. 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 7 in. (170.18 cm); Pain 8/10; 20:16 BP 114 / 69; Pulse 72; Resp 16; Temp 98.4; Pulse Ox 98% on R/A; Pain 7/10; katie 20:24 BP 115 / 68; Pulse 70; Resp 16; Temp 98.7; Pulse Ox 99% ; Pain 5/10; ko2 17:09 Body Mass Index 29.76 (86.18 kg, 170.18 cm) cmb MDM: 18:16 IV Saline Lock ordered. ke 18:17 CBC Ordered. EDMS 18:17 BMP Ordered. EDMS 18:17 PT/INR Ordered. EDMS 18:23 NS 0.9% 1000 ml IV at 250 mL/hr continuous ordered. ke 18:23 Ondansetron 4 mg IVP once ordered. ke 18:24 Type & Screen Ordered. EDMS 18:24 UA Ordered. EDMS 18:24 Urine Culture Ordered. EDMS 19:13 morphine 4 mg IVP once ordered. ke 19:21 Financial registration complete. ms16 19:21 [facility] Payment Agreement was scanned into [employer] and attached to record. ks16 19:43 fentaNYL (PF) 75 mcg IVP once ordered. ke 19:43 CBC Reviewed. ke 19:43 PT/INR Reviewed. ke 20:05 BMP Reviewed. ke 20:05 Type & Screen Reviewed. ke Administered Medications: 18:30 Drug: NS 0.9% 1000 ml [sodium chloride 0.9 % intravenous solution] Route: IV; Rate: 250 ml6 mL/hr; Site: left antecubital; 19:57 Follow up: IV Status: Completed infusion; IV Intake: 1000ml ko2 18:30 Drug: Ondansetron 4 mg [ondansetron HCl 2 mg/mL intravenous solution (2 mL)] Route: ml6 IVP; Site: left antecubital; 19:42 Not Given (Patient Refused): morphine 4 mg IVP once ke 19:56 Drug: fentaNYL (PF) 75 mcg [fentanyl (PF) 50 mcg/mL injection solution (1.5 mL)] Route: ko2 IVP; Site: left antecubital; Signatures: Dispatcher [employer] EDChava Shin RN RN Fabian Fair, BANKING MANAGER BANKING MANAGER Melissa Azar RN RN [id number] Susy Nicolas, Reg Reg [id number] Stalin Ayoub RN ml6 The chart was reviewed and I authenticate all verbal orders and agree with the evaluation and treatment provided.Attachments: 19:21 [facility] Payment Agreement [email or web address] MTDD
--- NOTE | 2016-10-22 20:26 | EDDOCDS ---
Nurse's Notes [facility] Name: Alyssa Garvey Age: 36 yrs Sex: Female : 1980 Arrival Date: 10/22/2016 Time: 17:06 Bed 8 Private MD: Sushant Hanson R. Diagnosis: Ileus, unspecified;Abdominal and pelvic pain Presentation: 10/22 17:32 Presenting complaint: Patient states: Generalized abdominal pain, nausea, for 5 days, dwg S/P abdominal surgery at [facility] to repair a ''burst bladder''. Risk factors: the patient reports no vaginal bleeding. Adult Sepsis Screening: The patient does not have new or worsening altered mentation. Patient's respiratory rate is less than 22. Systolic blood pressure is greater than 100. Patient has a qSOFA score of 0- Negative Sepsis Screen. Suicide/Homicide risk assessment- the patient denies having any suicidal and/or homicidal ideations and does not present with any other emotional, behavioral or mental health complaints. Status: Patient is not a business services intern or dependent. Transition of care: Patient was received from [facility]. 17:32 Acuity: SANJUANITA Level 3 dwg 17:32 Method Of Arrival: Wheelchair dwg Triage Assessment: 17:44 General: Appears in no apparent distress. Pain: Pain currently is 9 out of 10 on a pain dwg scale. HIV screening NA for this visit Offered previously. 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 Chantix 0.5 mg Oral tab 2. Xanax 1 mg Oral tab four times a day 3. Vyvanse 70 mg oral cap 1 cap once daily 4. Singulair 10 mg Oral tab 1 tab once daily 5. saphris 10 mg twice a day 6. Phenergan 25 mg Oral tab every 4-6 hours 7. Imitrex 6 mg/0.5 mL Sub-Q soln 0.5 mL as needed 8. ibuprofen 600 mg Oral tab 1 tab 4 times per day 9. Flonase 50 mcg/actuation Nasal spsn 1 spray once daily 10. Claritin 10 mg Oral tab 1 tab once daily 11. AMURGE PRN MIGRAINE - PMHx: Bipolar disorder; Chronic Back pain; GERD; lung abscesses; - PSHx: Gastric bypass; Hysterectomy; Back surgery; - Social history: Smoking status: Patient states former smoker of tobacco. No barriers to communication noted, The patient speaks fluent Korean. - Family history: Not pertinent. - : The pt / caregiver states he / she is not on anticoagulants. Home medication list is obtained from the patient. - Exposure Risk Screening:: None identified. Screenin:51 Screening information is obtained from the patient. Fall risk: No risks identified. ml6 Assistance ADL's: requires no assistance with activities of daily living. Abuse/DV Screen: The patient / caregiver reports he/she is: not in a situation that causes fear, pain or injury. Nutritional screening: No deficits noted. Advance Directives: Currently, there is no health care proxy. home support is adequate. Assessment: 17:32 General: Appears in no apparent distress, Behavior is appropriate for age, cooperative. ml6 General: mid line abd incision c/d/i, no drainage noted, 16fr love present, draining pale clear urine. Pain: Location: abdomen Pain currently is 7 out of 10 on a pain scale. Pain does not radiate. Quality of pain is described as aching, crampy, Pain began 2-3 days ago Is continuous Alleviated by nothing. Aggravated by increased activity. Cardiovascular: No deficits noted. Capillary refill < 3 seconds is brisk in bilateral fingers toes Heart tones S1 S2 present Edema is absent. Pulses are all present. Respiratory: No deficits noted. Airway is patent Respiratory effort is even, unlabored, Respiratory pattern is regular, symmetrical, Breath sounds are clear bilaterally. GI: Abdomen is flat, non- distended Bowel sounds present X 4 quads. Abd is soft X 4 quads Abd is tender to palpation X 4 quads. Reports nausea. 18:30 Reassessment: Patient appears in no apparent distress at this time. Patient states ml6 symptoms have not improved. no change from previous assessment. 19:15 General: Appears in no apparent distress, Behavior is appropriate for age, cooperative. ko2 Pain: Location: abdomen Pain currently is 7 out of 10 on a pain scale. Respiratory: Airway is patent Respiratory effort is even, unlabored. Derm: Skin is normal. 20:23 General: Appears in no apparent distress, Behavior is appropriate for age, cooperative. ko2 Pain: Location: abdomen Pain currently is 5 out of 10 on a pain scale. Respiratory: Airway is patent Respiratory effort is even, unlabored. Derm: Skin is normal. Vital Signs: 17:09 BP 136 / 56; Pulse 89; Resp 16; Temp 98.8(O); Pulse Ox 97% ; Weight 86.18 kg; Height 5 cmb ft. 7 in. (170.18 cm); Pain 8/10; 20:16 BP 114 / 69; Pulse 72; Resp 16; Temp 98.4; Pulse Ox 98% on R/A; Pain 7/10; katie 20:24 BP 115 / 68; Pulse 70; Resp 16; Temp 98.7; Pulse Ox 99% ; Pain 5/10; ko2 17:09 Body Mass Index 29.76 (86.18 kg, 170.18 cm) cmb Vitals: 17:09 Log In Time: October 22, 2016 at 17:06. cmb ED Course: 17:08 Patient visited by Christie Contreras. cmb 17:08 Patient moved to Waiting cmb 17:09 Sushant Hanson is Private Physician. cmb 17:10 Patient moved to Pre RCE cmb 17:32 Inserted peripheral IV: 18gauge IV in left antecubital area and blood collected. ml6 Patient tolerated the procedure well. Labs drawn. (by ED staff). Sent per order to lab. 17:37 Triage Initiated dwg 17:45 Stalin Ayoub, RN is Primary Nurse. dwg 17:45 Patient moved to 8 dwg 17:54 Patient visited by Stalin Ayoub RN. ml6 18:06 [facility]. ke 18:06 Patient visited by Fabian Means FNP. ke 18:06 Patient visited by Fabian Means FNP. ke 18:38 Patient visited by Fabian Means FNP. ke 18:52 The patient / caregiver is instructed regarding the plan of care and ED course. ml6 18:54 Patient visited by Stalin Ayoub RN. ml6 19:21 [facility] Payment Agreement was scanned into [employer] and attached to record. ks16 19:23 Patient visited by Fabian Means FNP. ke 19:54 Patient visited by Fabian Means FNP. ke 20:01 Daren,Melissa,RN is Primary Nurse. ko2 20:07 Primary Nurse role handed off by Stalin Ayoub, YARON sls1 20:25 Discontinued lock intact, bleeding controlled, pressure dressing applied, No ko2 redness/swelling at site. No procedures done that require assistance. Administered Medications: 18:30 Drug: NS 0.9% 1000 ml [sodium chloride 0.9 % intravenous solution] Route: IV; Rate: 250 ml6 mL/hr; Site: left antecubital; 19:57 Follow up: IV Status: Completed infusion; IV Intake: 1000ml ko2 18:30 Drug: Ondansetron 4 mg [ondansetron HCl 2 mg/mL intravenous solution (2 mL)] Route: ml6 IVP; Site: left antecubital; 19:42 Not Given (Patient Refused): morphine 4 mg IVP once ke 19:56 Drug: fentaNYL (PF) 75 mcg [fentanyl (PF) 50 mcg/mL injection solution (1.5 mL)] Route: ko2 IVP; Site: left antecubital; Intake: 19:57 IV: 1000.00ml; Total: 1000.00ml. ko2 Order Results: Lab Order: CBC; SPEC'M 10/22/16 18:44 Test: WHITE BLOOD COUNT; Value: 8.0; Range: 4.0-10.0; Units: K/mm3; Status: F Test: RED BLOOD COUNT; Value: 3.21; Range: 4.00-5.40; Abnormal: Below low normal; Units: M/mm3; Status: F Test: HEMOGLOBIN; Value: 9.0; Range: 12.0-16.0; Abnormal: Below low normal; Units: g/dl; Status: F Test: HEMATOCRIT; Value: 28.4; Range: 36.0-47.0; Abnormal: Below low normal; Units: %; Status: F Test: MEAN CORPUSCULAR VOLUME; Value: 88.6; Range: 80.0-96.0; Units: fl; Status: F Test: MEAN CORPUSCULAR HEMOGLOBIN; Value: 27.9; Range: 27.0-33.0; Units: pg; Status: F Test: MEAN CORPUSCULAR HGB CONC; Value: 31.5; Range: 32.0-36.5; Abnormal: Below low normal; Units: g/dl; Status: F Test: RED CELL DISTRIBUTION WIDTH; Value: 16.5; Range: 11.5-14.5; Abnormal: Above high normal; Units: %; Status: F Test: PLATELET COUNT, AUTOMATED; Value: 294; Range: 150-450; Units: k/mm3; Status: F Lab Order: BMP; SPEC'10/22/16 19:10 Test: GLUCOSE, FASTING; Value: 85; Range: 70-105; Units: MG/DL; Status: F Test: BLOOD UREA NITROGEN; Value: 9; Range: 7-18; Units: MG/DL; Status: F Test: CREATININE FOR GFR; Value: 0.45; Range: 0.55-1.02; Abnormal: Below low normal; Units: MG/DL; Status: F Test: GLOMERULAR FILTRATION RATE; Value: > 60.0; Range: >60; Status: F Test: SODIUM LEVEL; Value: 142; Range: 136-145; Units: MEQ/L; Status: F Test: POTASSIUM SERUM; Value: 3.9; Range: 3.5-5.1; Units: MEQ/L; Status: F Test: CHLORIDE LEVEL; Value: 105; Range: 98-107; Units: MEQ/L; Status: F Test: CARBON DIOXIDE LEVEL; Value: 28; Range: 21-32; Units: MEQ/L; Status: F Test: ANION GAP; Value: 9; Range: 8-16; Units: MEQ/L; Status: F Test: CALCIUM LEVEL; Value: 8.3; Range: 8.5-10.1; Abnormal: Below low normal; Units: MG/DL; Status: F Test Note: ; Units are mL/min/1.73 m2 Chronic Kidney Disease Staging per NKF: Stage I & II GFR >=60 Normal to Mildly Decreased Stage III GFR 30-59 Moderately Decreased Stage IV GFR 15-29 Severely Decreased Stage V GFR <15 Very Little GFR Left ESRD GFR <15 on SLEEPING CAR SERVICE ATTENDANT Lab Order: PT/INR; SPEC'10/22/16 19:10 Test: PROTHROMBIN TIME; Value: 12.4; Range: 12.3-14.5; Units: SECONDS; Status: F Test: INR; Value: 0.91; Status: F Test Note: ; THERAPUTIC HUMAN INR VALUES INDICATIONS NORMAL RANGES PROPHYLAXIS/TREATMENT OF: VENOUS THROMBOSIS 2.0-3.0 PULMONARY EMBOLISM 2.0-3.0 PREVENTION OF SYSTEMIC EMBOLISM FROM: TISSUE HEART VALVES 2.0-3.0 ACUTE MYOCARDIAL INFARCTION 2.0-3.0 VALVULAR HEART DISEASE 2.0-3.0 ATRIAL FIBRILLATION 2.0-3.0 MECHANICAL VALVES(HIGH RISK) 2.5-3.5 RECURRENT MYOCARDIAL INFARCTION 2.5-3.5 Lab Order: Type & Screen; SPEC'M 10/22/16 19:10 Test: BLOOD TYPE; Value: A NEG; Status: F Test: AB SCREEN (INDIRECT ROMA)GEL; Value: NEGATIVE; Status: F Outcome: 18:52 No special radiology studies were completed. Property :Personal belongings accompany Pt.ml6 20:08 Discharge ordered by Provider. 20:25 Discharge Assessment: Patient awake, alert and oriented x 3. No cognitive and/or ko2 functional deficits noted. Patient verbalized understanding of disposition instructions. Patient awake and alert. patient administered narcotics - yes. Pt provided with safe discharge. The following High Risk Discharge criteria are identified: None. Discharged to home ambulatory, with parent. Condition: stable. Discharge instructions given to patient, Instructed on discharge instructions, follow up and referral plans. medication usage, Demonstrated understanding of instructions, medications, Pt was receptive of discharge instructions/ teaching. Prescriptions given X 1. 20:26 Patient left the ED. ko2 Signatures: Chava Bird RN Fabian Lopez, YIELD ANALYST YIELD ANALYST Stalin Cotton RN RN ml6 Shae Pulliam, PATIENT'S LIBRARIAN PATIENT'S LIBRARIAN Nathalia Flor RN RN [email or web address] Christie Contreras Kari, RN RN ko2 Susy Nicolas, Reg Reg [email or web address] Corrections: (The following items were deleted from the chart) 18:48 18:47 Ondansetron 4 mg IVP in left antecubital ml6 ml6 MTDD
--- NOTE | 2016-10-24 21:26 | EDDOCDS ---
Physician Documentation [facility] Name: Alyssa Garvey Age: 36 yrs Sex: Female : 1980 Arrival Date: 10/22/2016 Time: 17:06 Bed 8 Private MD: Sushant Hanson R. Disposition: 10/22/16 20:08 Discharged to Home/Self Care. Impression: Ileus, unspecified, Abdominal and pelvic pain. - Condition is Stable. - Discharge Instructions: Ileus, Abdominal Pain, Adult. - Prescriptions for Zofran 4 mg Oral Tablet - take 1 tablet by ORAL route 4 times per day As needed; 10 tablet. - Medication Reconciliation, Local Pharmacy Hours form. - Follow up: Private Physician; When: 2 - 3 days; Reason: Recheck today's complaints, Continuance of care. - Problem is an ongoing problem. - Symptoms are unchanged. Historical: - Allergies: Dilaudid; Gastrografin; Ketorolac; Latex; Morphine; - Home Meds: 1. Chantix 0.5 mg Oral tab 2. Xanax 1 mg Oral tab four times a day 3. Vyvanse 70 mg oral cap 1 cap once daily 4. Singulair 10 mg Oral tab 1 tab once daily 5. saphris 10 mg twice a day 6. Phenergan 25 mg Oral tab every 4-6 hours 7. Imitrex 6 mg/0.5 mL Sub-Q soln 0.5 mL as needed 8. ibuprofen 600 mg Oral tab 1 tab 4 times per day 9. Flonase 50 mcg/actuation Nasal spsn 1 spray once daily 10. Claritin 10 mg Oral tab 1 tab once daily 11. AMURGE PRN MIGRAINE - PMHx: Bipolar disorder; Chronic Back pain; GERD; lung abscesses; - PSHx: Gastric bypass; Hysterectomy; Back surgery; - Social history: Smoking status: Patient states former smoker of tobacco. No barriers to communication noted, The patient speaks fluent Faroese. - Family history: Not pertinent. - : The pt / caregiver states he / she is not on anticoagulants. Home medication list is obtained from the patient. - Exposure Risk Screening:: None identified. 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 7 in. (170.18 cm); Pain 8/10; 20:16 BP 114 / 69; Pulse 72; Resp 16; Temp 98.4; Pulse Ox 98% on R/A; Pain 7/10; katie 20:24 BP 115 / 68; Pulse 70; Resp 16; Temp 98.7; Pulse Ox 99% ; Pain 5/10; ko2 17:09 Body Mass Index 29.76 (86.18 kg, 170.18 cm) cmb MDM: 18:16 IV Saline Lock ordered. ke 18:17 CBC Ordered. EDMS 18:17 BMP Ordered. EDMS 18:17 PT/INR Ordered. EDMS 18:23 NS 0.9% 1000 ml IV at 250 mL/hr continuous ordered. ke 18:23 Ondansetron 4 mg IVP once ordered. ke 18:24 Type & Screen Ordered. EDMS 18:24 UA Ordered. EDMS 18:24 Urine Culture Ordered. EDMS 19:13 morphine 4 mg IVP once ordered. ke 19:21 Financial registration complete. [email or web address] 19:21 [facility] [place] Payment Agreement was scanned into [employer] and attached to record. ks16 19:43 fentaNYL (PF) 75 mcg IVP once ordered. ke 19:43 CBC Reviewed. ke 19:43 PT/INR Reviewed. ke 20:05 BMP Reviewed. ke 20:05 Type & Screen Reviewed. ke 10/23 11:29 T-Sheet-- Draft Copy was scanned into [employer] and attached to record. gb 11:30 Radiology Report was scanned into [employer] and attached to record. gb Administered Medications: 10/22 18:30 Drug: NS 0.9% 1000 ml [sodium chloride 0.9 % intravenous solution] Route: IV; Rate: 250 ml6 mL/hr; Site: left antecubital; 19:57 Follow up: IV Status: Completed infusion; IV Intake: 1000ml ko2 18:30 Drug: Ondansetron 4 mg [ondansetron HCl 2 mg/mL intravenous solution (2 mL)] Route: ml6 IVP; Site: left antecubital; 19:42 Not Given (Patient Refused): morphine 4 mg IVP once ke 19:56 Drug: fentaNYL (PF) 75 mcg [fentanyl (PF) 50 mcg/mL injection solution (1.5 mL)] Route: ko2 IVP; Site: left antecubital; Signatures: Dispatcher [employer] Chava Menjivar, YARON isbellg Soniya Lodnono, Reg Reg gb Fabian Means, BOBBIN DOFFER BOBBIN DOFFER Melissa Azar RN RN ko2 Susy Nicolas, Reg Reg ks16 Stalin Ayoub RN ml6 The chart was reviewed and I authenticate all verbal orders and agree with the evaluation and treatment provided.Attachments: 19:21 COUNT INCLUDES THE [facility] Payment Agreement [email or web address] 10/23 11:29 T-Sheet-- Draft Copy gb Chart Complete MTDD
--- NOTE | 2016-10-24 21:26 | EDDOCDS ---
Physician Documentation [facility] [place] Name: Alyssa Garvey Age: 36 yrs Sex: Female : 1980 Arrival Date: 10/22/2016 Time: 17:06 Bed 8 Private MD: Sushant Hanson R. Disposition: 10/22/16 20:08 Discharged to Home/Self Care. Impression: Ileus, unspecified, Abdominal and pelvic pain. - Condition is Stable. - Discharge Instructions: Ileus, Abdominal Pain, Adult. - Prescriptions for Zofran 4 mg Oral Tablet - take 1 tablet by ORAL route 4 times per day As needed; 10 tablet. - Medication Reconciliation, Local Pharmacy Hours form. - Follow up: Private Physician; When: 2 - 3 days; Reason: Recheck today's complaints, Continuance of care. - Problem is an ongoing problem. - Symptoms are unchanged. Historical: - Allergies: Dilaudid; Gastrografin; Ketorolac; Latex; Morphine; - Home Meds: 1. Chantix 0.5 mg Oral tab 2. Xanax 1 mg Oral tab four times a day 3. Vyvanse 70 mg oral cap 1 cap once daily 4. Singulair 10 mg Oral tab 1 tab once daily 5. saphris 10 mg twice a day 6. Phenergan 25 mg Oral tab every 4-6 hours 7. Imitrex 6 mg/0.5 mL Sub-Q soln 0.5 mL as needed 8. ibuprofen 600 mg Oral tab 1 tab 4 times per day 9. Flonase 50 mcg/actuation Nasal spsn 1 spray once daily 10. Claritin 10 mg Oral tab 1 tab once daily 11. AMURGE PRN MIGRAINE - PMHx: Bipolar disorder; Chronic Back pain; GERD; lung abscesses; - PSHx: Gastric bypass; Hysterectomy; Back surgery; - Social history: Smoking status: Patient states former smoker of tobacco. No barriers to communication noted, The patient speaks fluent Kyrgyz. - Family history: Not pertinent. - : The pt / caregiver states he / she is not on anticoagulants. Home medication list is obtained from the patient. - Exposure Risk Screening:: None identified. 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 7 in. (170.18 cm); Pain 8/10; 20:16 BP 114 / 69; Pulse 72; Resp 16; Temp 98.4; Pulse Ox 98% on R/A; Pain 7/10; katie 20:24 BP 115 / 68; Pulse 70; Resp 16; Temp 98.7; Pulse Ox 99% ; Pain 5/10; ko2 17:09 Body Mass Index 29.76 (86.18 kg, 170.18 cm) cmb MDM: 18:16 IV Saline Lock ordered. ke 18:17 CBC Ordered. EDMS 18:17 BMP Ordered. EDMS 18:17 PT/INR Ordered. EDMS 18:23 NS 0.9% 1000 ml IV at 250 mL/hr continuous ordered. ke 18:23 Ondansetron 4 mg IVP once ordered. ke 18:24 Type & Screen Ordered. EDMS 18:24 UA Ordered. EDMS 18:24 Urine Culture Ordered. EDMS 19:13 morphine 4 mg IVP once ordered. ke 19:21 Financial registration complete. [email or web address] 19:21 [facility] Payment Agreement was scanned into [employer] and attached to record. ks16 19:43 fentaNYL (PF) 75 mcg IVP once ordered. ke 19:43 CBC Reviewed. ke 19:43 PT/INR Reviewed. ke 20:05 BMP Reviewed. ke 20:05 Type & Screen Reviewed. ke 10/23 11:29 T-Sheet-- Draft Copy was scanned into [employer] and attached to record. gb 11:30 Radiology Report was scanned into [employer] and attached to record. gb Administered Medications: 10/22 18:30 Drug: NS 0.9% 1000 ml [sodium chloride 0.9 % intravenous solution] Route: IV; Rate: 250 ml6 mL/hr; Site: left antecubital; 19:57 Follow up: IV Status: Completed infusion; IV Intake: 1000ml ko2 18:30 Drug: Ondansetron 4 mg [ondansetron HCl 2 mg/mL intravenous solution (2 mL)] Route: ml6 IVP; Site: left antecubital; 19:42 Not Given (Patient Refused): morphine 4 mg IVP once ke 19:56 Drug: fentaNYL (PF) 75 mcg [fentanyl (PF) 50 mcg/mL injection solution (1.5 mL)] Route: ko2 IVP; Site: left antecubital; Signatures: Dispatcher [employer] Chava Menjivar, YARON isbellg Soniya Londono, Reg Reg gb Fabian Means, MANAGER ADVANCED MANAGER ADVANCED Melissa Azar RN RN ko2 Susy Nicolas, Reg Reg ks16 Stalin Ayoub RN ml6 The chart was reviewed and I authenticate all verbal orders and agree with the evaluation and treatment provided.Attachments: 19:21 [facility] Payment Agreement [email or web address] 10/23 11:29 T-Sheet-- Draft Copy gb Chart Complete MTDD
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
== END 2016-10-22 20:26 | disposition home or self-care (01) ==
LOC: M ED 17:06
DX: K56.7 Ileus, unspecified (principal); F41.9 Anxiety disorder, unspecified; M54.9 Dorsalgia, unspecified; K21.9 Gastro-esophageal reflux disease without esophagitis; Z98.84 Bariatric surgery status; Z79.899 Other long term (current) drug therapy; Z87.891 Personal history of nicotine dependence; Z88.8 Allergy status to other drugs, medicaments and biological substances; Z91.040 Latex allergy status
CPT/HCPCS: 36415; 80048; 85027; 85610; 86850; 86900; 86901; 96361; 96374; 96375; 99284; J2405; J3010

== ENCOUNTER → 2016-10-22 | Outpatient (REF) | payer OTHER ==
[~2016-10-22] MED LIST changes: +DRAM25TA3 PO; +OXYC-517 PO; -OXYCO5TA PO; -[UNRECOGNIZED DRUG - CODE] PO
[2016-10-22 17:25] LABS: MEAN CORPUSCULAR HEMOGLOBIN 27.7 pg (27.0-33.0); MEAN CORPUSCULAR HGB CONC 31.3 g/dl (32.0-36.5); MEAN CORPUSCULAR VOLUME 88.5 fl (80.0-96.0); RED CELL DISTRIBUTION WIDTH 16.7 % (11.5-14.5); WHITE BLOOD COUNT 8.6 K/mm3 (4.0-10.0)
[2016-10-22 18:57] LABS: ALBUMIN 2.5 GM/DL (3.2-5.2); ALBUMIN/GLOBULIN RATIO 0.83 (1.00-1.93); ALKALINE PHOSPHATASE 260 U/L (45-117); ALT/SGPT 37 U/L (12-78); ANION GAP 12 MEQ/L (8-16); AST/SGOT 27 U/L (15-37); BILIRUBIN,TOTAL 0.2 MG/DL (0.2-1.0); BLOOD UREA NITROGEN 8 MG/DL (7-18); CALCIUM LEVEL 8.3 MG/DL (8.5-10.1); CARBON DIOXIDE LEVEL 24 MEQ/L (21-32); CHLORIDE LEVEL 102 MEQ/L (98-107); CREATININE FOR GFR 0.45 MG/DL (0.55-1.02); GLOMERULAR FILTRATION RATE > 60.0 (>60); GLUCOSE, FASTING 87 MG/DL (70-105); SODIUM LEVEL 138 MEQ/L (136-145); TOTAL PROTEIN 5.5 GM/DL (6.4-8.2)
== END ==
LOC: M SFHCLERA 14:08
PROVIDERS: ATTEND Physician Assistant
DX: N32.89 Other specified disorders of bladder (principal)

== ENCOUNTER → 2016-10-22 | Outpatient (CLI) | payer OTHER ==
[~2016-10-22] MED LIST changes: +ISOVUE-370 76% 100ML VIAL (Q9967) As Ordered ONE
--- NOTE | 2016-10-22 16:42 | REP ---
CT abdomen and pelvis without and with IV contrast: With oral contrast: History: Ruptured bladder with uroperitoneum. Status post bladder repair 5-7 days ago. Increased abdominal distension and pain. Comparison is made with CT study of the abdomen and pelvis from October 13, 2016 done at [facility]. The patient also gives a history of previous hysterectomy and gastric bypass procedure. CT contrast dose: 100 ml of Isovue [address] findings: Digital preliminary dimpling machine operator radiograph demonstrates massive gaseous distension of the stomach and upper abdominal small bowel loops are moderately dilated. Axial CT images demonstrate subsegmental discoid atelectasis in the lower lobes bilaterally. This is more prominent in the left base than the right. There is an air-fluid level in the somewhat dilated distal esophagus. The body and antrum of the stomach and the duodenal C-loop are markedly dilated. The patient is status post gastric bypass and this is the excluded portion of the stomach. Presumably it is filling with air and fluid retrograde. The gastric pouch and the gastrojejunostomy show fluid and ingested content and are mildly dilated. There is diffuse dilation, moderate in degree, of the small intestine throughout the upper abdomen. There is stool in the sigmoid colon and rectum. There is some stool and gas in the transverse colon. The ascending colon and cecum are redundant. A portion of this is completely empty. The remainder of the colon is mildly dilated. There is some low density content in the terminal ileum and in a portion of the cecum. There is no evidence of free intraperitoneal air. There is a small quantity of ascitic fluid located in the left pericolic gutter and in the cul-de-sac within the pelvis there is a small quantity of fluid. A Pereira catheter is seen within the urinary bladder. A tiny quantity of air is seen in the urinary bladder. Postoperative changes are seen in the anterior abdominal wall. Delayed images show no evidence of contrast extravasation from the urinary bladder. There is mild fullness of the intrarenal collecting systems of both kidneys. Mild bilateral hydronephrosis is felt to be present. Impression: Moderate to marked ileus pattern with dilated small bowel diffusely and mild dilation of most of the colon. There is marked gaseous distension of the bypassed portion of the stomach. No evidence of free air. Small quantity of ascitic fluid in the cul-de-sac and left pericolic gutter. Urinary bladder appears to be intact with Pereira catheter in place. Signed by Moshe Carmona MD 10/22/2016 05:03 P
== END ==
LOC: M RAD 15:21
PROVIDERS: ATTEND Physician Assistant
DX: N32.89 Other specified disorders of bladder (principal)

== ENCOUNTER → 2016-11-06 | Outpatient (REF) | payer OTHER | LOC: M SFHCLERA 11:46 → EEVIPCON 11:46 | PROVIDERS: ATTEND Physician Assistant | DX: N32.89 Other specified disorders of bladder (principal); T81.31XS Disruption of external operation (surgical) wound, not elsewhere classified, sequela ==

== ENCOUNTER → 2016-11-18 | Outpatient (CLI) | payer OTHER ==
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
== END ==
LOC: M PAIN 14:40
PROVIDERS: ATTEND Nurse Practitioner Family
DX: Z09 Encounter for follow-up examination after completed treatment for conditions other than malignant neoplasm (principal); G89.29 Other chronic pain; M96.1 Postlaminectomy syndrome, not elsewhere classified; M46.1 Sacroiliitis, not elsewhere classified; I73.00 Raynaud's syndrome without gangrene; D83.9 Common variable immunodeficiency, unspecified; F41.9 Anxiety disorder, unspecified; F31.9 Bipolar disorder, unspecified; M54.6 Pain in thoracic spine; G43.709 Chronic migraine without aura, not intractable, without status migrainosus; G89.4 Chronic pain syndrome; M79.1 Myalgia; I87.2 Venous insufficiency (chronic) (peripheral); K59.00 Constipation, unspecified; D50.9 Iron deficiency anemia, unspecified; Z72.0 Tobacco use; F10.21 Alcohol dependence, in remission; R41.840 Attention and concentration deficit; N32.89 Other specified disorders of bladder; Z88.5 Allergy status to narcotic agent; Z91.040 Latex allergy status; Z88.8 Allergy status to other drugs, medicaments and biological substances; Z79.1 Long term (current) use of non-steroidal anti-inflammatories (NSAID); Z79.891 Long term (current) use of opiate analgesic; Z79.899 Other long term (current) drug therapy; Z98.84 Bariatric surgery status; Z98.890 Other specified postprocedural states

== ENCOUNTER → 2016-11-18 | Outpatient (CLI) | payer OTHER | LOC: M LAB 16:54 | PROVIDERS: ATTEND Neurological Surgery | DX: M06.9 Rheumatoid arthritis, unspecified (principal) ==

== ENCOUNTER → 2016-11-20 | Outpatient (REF) | payer OTHER ==
[2016-11-20 20:13] LABS: MEAN CORPUSCULAR HEMOGLOBIN 26.7 pg (27.0-33.0); MEAN CORPUSCULAR HGB CONC 30.7 g/dl (32.0-36.5); RED CELL DISTRIBUTION WIDTH 17.4 % (11.5-14.5); WHITE BLOOD COUNT 6.4 K/mm3 (4.0-10.0)
[2016-11-20 20:34] LABS: ALBUMIN 3.1 GM/DL (3.2-5.2); ALBUMIN/GLOBULIN RATIO 0.97 (1.00-1.93); ALKALINE PHOSPHATASE 127 U/L (45-117); ALT/SGPT 27 U/L (12-78); ANION GAP 8 MEQ/L (8-16); AST/SGOT 27 U/L (15-37); BILIRUBIN,TOTAL 0.3 MG/DL (0.2-1.0); BLOOD UREA NITROGEN 16 MG/DL (7-18); CALCIUM LEVEL 9.4 MG/DL (8.5-10.1); CARBON DIOXIDE LEVEL 28 MEQ/L (21-32); CHLORIDE LEVEL 107 MEQ/L (98-107); CREATININE FOR GFR 0.66 MG/DL (0.55-1.02); FERRITIN 20 NG/ML (8-252); GLOMERULAR FILTRATION RATE > 60.0 (>60); GLUCOSE, FASTING 77 MG/DL (70-105); POTASSIUM SERUM 4.4 MEQ/L (3.5-5.1); SODIUM LEVEL 143 MEQ/L (136-145); TOTAL PROTEIN 6.3 GM/DL (6.4-8.2)
== END ==
LOC: M SFHCLERA 16:43
PROVIDERS: ATTEND Physician Assistant
DX: K59.00 Constipation, unspecified (principal); D50.9 Iron deficiency anemia, unspecified

== ENCOUNTER → 2016-12-09 | Outpatient (CLI) | payer OTHER ==
--- NOTE | 2016-12-10 00:43 | ECWPNPC ---
PATIENT NAME: ADELA ALMONTE : 1980 GENDER: FEMALE VISIT DATE: 12/09/2016 DISCHARGE DATE: 12/09/16 1214 VISIT LOCKED DATE TIME: PHYSICIAN: RUTHY LOPEZ RESOURCE: RUTHY LOPEZ REASON FOR APPOINTMENT 1. FOLLOWUP-BACK HISTORY OF PRESENT ILLNESS HISTORY OF PRESENT ILLNESS: PAIN THE PATIENT DESCRIBES THE PAIN... FALL RISK SCREENING: SCREENING :NO FALLS IN THE PAST YEAR TODAY'S VISIT: NOTES: STATES IS TAKING OXYCODONE 5 MGON A SCHEDULE BUT CAN NOT GET SUFFICIENT RELIEF. MOTHER KEEPS CONTROL OF MEDS AT ALL TIMES. HAS RECENTLY BEEN STARTED ON GEODON AND HYDROXYZINE. HAS BEEN HAVING SOME SWELLING IN FEET AND HAS BEEN STARTED ON LASIX ON A PRN BABSIS. . NOTING PAIN AT RIGHT SIJ, AND IN MID BACK WITH N/T IN BOTH ARMS. IS VERY FRUSTRATED WITH LACK OF PAIN CONTROL. CURRENT MEDICATIONS TAKING AMERGE 1 MG TABLET 1 TAB(S) ORALLY DAILY NEEDED TAKING IMITREX 4 MG/0.5ML SOLUTION 1 INJECTION NEEDED AT THE ONSET OF A MIGRAINE SUBCUTANEOUS REPEAT TIMES ONE IF NOT EFFECTIVE (DR JC) TAKING GAMMAGARD 10 % SOLUTION INTRAVENOUS EVERY 4 WEEKS TAKING NIFEDIPINE 20 MG CAPSULE 1 CAPSULE ORALLY DAILY TAKING LYRICA 225 MG CAPSULE 1 CAPSULE ORALLY Q 8 HRS MDD=3 TAKING FLUTICASONE PROPIONATE 50 MCG/ACT SUSPENSION 1 SPRAY IN EACH NOSTRIL NASALLY ONCE A DAY TAKING SINGULAIR 10 MG TABLET 1 TABLET IN THE EVENING ORALLY ONCE A DAY TAKING CLARITIN 10 MG TABLET 1 TABLET ORALLY ONCE A DAY TAKING COLACE 100 MG CAPSULE 1 CAPSULE NEEDED ORALLY ONCE A DAY TAKING ZOFRAN ODT 8 MG TABLET DISPERSIBLE 1 ORALLY BID PRN TAKING BACLOFEN 10 MG TABLET 1 TABLET WITH FOOD OR MILK ORALLY THREE TIMES A DAY TAKING ACETAMINOPHEN 500 MG CAPSULE 1 CAPSULES NEEDED ORALLY EVERY 6 HRS PRN TAKING BUSPIRONE HCL 30 MG TABLET 1 TABLET ORALLY TWICE A DAY TAKING VYVANSE 70 MG CAPSULE 1 CAPSULE IN THE MORNING ORALLY ONCE A DAY TAKING FENTANYL 12 MCG/HR PATCH 72 HOUR 1 PATCH TO SKIN TRANSDERMAL APPLY 1 PATCH Q 72 HOURS MDD=1 CHRONIC PAIN, NOTES: HASN;T BEEN APPROVED YET TAKING LASIX 20 MG TABLET 1 TABLET ORALLY ONCE A DAY TAKING SENNA S 8.6-50 MG TABLET 2 TABLET IN THE EVENING NEEDED ORALLY ONCE A DAY TAKING OXYCODONE HCL 5 MG TABLET 1 TABLET ORALLY EVERY 6-8 HRS PRN PAIN MDD=3 TAKING PHENERGAN 25 MG TABLET 1 TAB ORALLY QID TAKING GEODON 40 MG CAPSULE 1 CAPSULE WITH FOOD ORALLY TWICE A DAY TAKING HYDROXYZINE HCL 25 MG TABLET 1 TABLET NEEDED ORALLY EVERY 8 HRS NOT-TAKING SAPHRIS 5 MG TABLET SUBLINGUAL 1 TABLET UNDER THE TONGUE AND ALLOW TO DISSOLVE SUBLINGUAL TWICE A DAY, NOTES: PT STATES ONLY TAKES AT NIGHT NOT-TAKING DIFLUCAN 150MG (1 TABLET) 150 MG TABLET 1 TABLET ORALLY ONCE A DAY NOT-TAKING ALBUTEROL SULFATE HFA 108 (90 BASE) MCG/ACT AEROSOL SOLUTION 1-2 PUFFS NEEDED INHALATION EVERY 4 HRS PRN NOT-TAKING IBUPROFEN 600MG PRN PO 400 MG THREE TIMES DAILY NOT-TAKING ALBUTEROL SULFATE (2.5 MG/3ML) 0.083% NEBULIZATION SOLUTION 1 VIAL INHALATION EVERY 6 HRS PRN DISCONTINUED AUGMENTIN 875-125 MG TABLET 1 TABLET ORALLY EVERY 12 HRS MEDICATION LIST REVIEWED AND RECONCILED WITH THE PATIENT PAST MEDICAL HISTORY HYPERLIPIDEMIA (RESOLVED WITH GASTRIC BYPASS) MENOPAUSE CHRONIC NECK/MID/LOW BACK PAIN PEPTIC ULCER DISEASE, S/P GASTRIC BYPASS BIPOLAR, ANXIETY, DEPRESSION ALCOHOLISM MIGRAINE HEADACHES TOBACCO USE ADD CHRONIC RHINITIS/SINUSITIS RAYNAUD'S SYNDROME COMMON VARIABLE AUTOIMMUNE DEFICIENCY DISEASE ASTHMA ALLERGIES MORPHINE: HIVES: ALLERGY LATEX: HIVES: ALLERGY DILAUDID: HIVES: ALLERGY REGLAN: HIVES: ALLERGY VOLTAREN: ULCERS FROM ANY NSAID: ALLERGY LAMICTAL: HIVES: ALLERGY DEPAKOTE: CONFUSION: ALLERGY KLONOPIN: CONFUSION: ALLERGY RISPERDAL: SUICIDAL IDEATION: ALLERGY ZYPREXA: SUICIDAL IDEATION: ALLERGY KETOROLAC TROMETHAMINE: ANAPHYLAXIS: ALLERGY GASTROGRAFIN: HIVES: ALLERGY SOCIAL HISTORY GENERAL: TOBACCO USE ARE YOU A:NONSMOKER LEARNING BARRIERS / SPECIAL NEEDS ORIENTED TO PLAN OF CARE: PATIENT, PAIN MANAGEMENT PATIENT, ORIENTED TO PLAN OF CARE: PATIENT, PAIN MANAGEMENT PATIENT. NEW PATIENT PAIN DIARY TODAY'S VISITNOTES FROM 0-10, WHAT LEVEL IS YOUR PAIN TODAY?0 PAIN CLINIC PFS, CLERGY, PUBLIC HEALTH REFERRALS PFS REFERRAL NEEDED?NO CLERGY REFERRAL NEEDED?NO PUBLIC HEALTH REFERRAL NEEDED?NO WAS THE PROVIDER NOTIFIED OF ANY PERTINENT INFO?NO PFS REFERRAL NEEDED?NO CLERGY REFERRAL NEEDED?NO PUBLIC HEALTH REFERRAL NEEDED?NO WAS THE PROVIDER NOTIFIED OF ANY PERTINENT INFO?NO REVIEW OF SYSTEMS CONSTITUTIONAL: ANY CHANGE IN YOUR MEDICAL CONDITION? NO . CHILLS NO . FEVER NO . INFECTION: DO YOU HAVE NEW INFECTIONS? NO . DO YOU HAVE HISTORY OF MRSA? NO . MUSCULOSKELETAL: ANY NEW PATTERNS OF PAIN OR NUMBNESS? YES PT REPORTS A NEW PAIN IN UPPER TO MID BACK, STARTS A SPASM, THEN PROGRESSES TO CONTINUOUS BURNING AND TINGLING ACROSS BACK . GASTROENTEROLOGY: ANY NEW CHANGE IN BOWEL CONTROL? NO . GENITOURINARY: ANY NEW CHANGE IN BLADDER CONTROL? NO . IS THERE A CHANCE YOU COULD BE ? NO . HEMATOLOGY/LYMPH: DO YOU TAKE ANY BLOOD THINNERS? (FOR EXAMPLE- COUMADIN, PLAVIX, AGGRENOX, PLATEL, PRADAXA, OR XARELTO) NO . WHEN WAS YOUR LAST DOSE? DATE: TIME: . NEUROLOGY: HAVE YOU FALLEN IN THE PAST 6 MONTHS? YES PT REPORTS SEVERAL FALLS DUE TO LOSING HER BALANCE AND POOR COORDINATION. NO ED VISITS, NO INJURIES FROM FALLS PER PT. . ANY NEW EXTREMITY NUMBNESS OR WEAKNESS? NO . CARDIOLOGY: DO YOU HAVE A PACEMAKER OR DEFIBRILLATOR? NO . RESPIRATORY: HAVE YOU BEEN SICK IN THE PAST WEEK? NO . FEVER NO . FLU LIKE SYMPTOMS? NO . COUGH NO . INTEGUMENTARY: DO YOU HAVE ANY RASHES OR OPEN SORES? NO . ALLERGIC/IMMUNO: ARE YOU ALLERGIC TO SHELLFISH OR IV DYE? NO . ANY NEW ALLERGIES? NO . PSYCHIATRIC: DO YOU HAVE THOUGHTS OF HURTING YOURSELF OR SOMEONE ELSE? NO . ARE YOU ABUSED, NEGLECTED, OR IN AN UNSAFE ENVIRONMENT? NO . ENDOCRINOLOGY: ARE YOU DIABETIC? NO . OTHER: DO YOU NEED ANY PRESCRIPTIONS? NO . IF YES, PLEASE LIST: ____ . ANY NEW PROBLEMS WITH YOUR MEDICATIONS? NO . WHEN DID YOU LAST EAT? ____ . WHEN DID YOU LAST DRINK? ____ . WHAT DID YOU LAST DRINK? ____ . NAME OF PERSON DRIVING YOU HOME? ____ . DO YOU HAVE ANY OTHER QUESTIONS OR CONCERNS YES PT WOULD LIKE TO HAVE A RELEASE SIGNED FOR THE [facility] . REVIEWED BY: PROVIDER: RUTHY CALL . VITAL SIGNS WT 170 LBS, HT 67 IN, BMI 26.62 INDEX, BP 118/83 MM HG, HR 107 /MIN, RR 16 /MIN, TEMP 97.0 F, OXYGEN SAT % 99, NA INITIALS TL 1116. EXAMINATION GENERAL EXAMINATION: PSYCHALERT , ORIENTED X 3 , APPROPRIATE MOOD AND AFFECT , TALKATIVE, SPEACH CLEAR. HEENT:SCLERA NONERYTHEMATOUS. LUNGS:CLEAR TO AUSCULTATION BILATERALLY. HEART:HEART RATE REGULAR. MUSCULOSKELETAL:MUSCLE STRENGTH TESTING 5/5 BILATERAL LOWER EXTREMITIES.TENDER OVER MIDTHORACIC REGION. , PALPATION: POSITIVE FOR PAIN OVER L/S SPINE. POSITIVE FOR PAIN OVER L/S PARSPINALS. POINT TENDERNESS NOTED OVER BILATERAL SACROILIAC JOINTS. TRIGGER POINTS AND TIGHT FIBROUS BANDS IDENTIFIED OVER THE LUMBAR PARAVERTEBRAL MUSCLES.. EXTREMITIES:FEET VERY WARM TO TOUCH TODAY. SKIN:FLAT PINK FACIAL RASH ACROSS CHEEKS. ASSESSMENTS LUMBAR POST-LAMINECTOMY SYNDROME - M96.1 (PRIMARY) SACROILIITIS - M46.1 RAYNAUD'S SYNDROME WITHOUT GANGRENE - I73.00 CHRONIC PRESCRIPTION OPIATE USE - Z79.891 TREATMENT LUMBAR POST-LAMINECTOMY SYNDROME REFILL FENTANYL PATCH 72 HOUR, 12 MCG/HR, 1 PATCH TO SKIN, TRANSDERMAL, APPLY 1 PATCH Q 72 HOURS MDD=1 CHRONIC PAIN, 30 DAY(S), 10, REFILLS 0 START PERCOCET TABLET, 10-325 MG, 1 TABLET NEEDED, ORALLY, EVERY 6 -8 HRS PRN PAIN MDD=3, 30 DAY(S), 90, REFILLS 0 START LYRICA CAPSULE, 225 MG, 1 CAPSULE, ORALLY, Q 8 HRS MDD=3, 30 DAY(S), 90, REFILLS 3 CLINICAL NOTES: ISTOP REGISTRY REVIEWED AND DEMNOSTRATES COMPLLIANCE. BRINGS IN MEDICATIONS WHICH IS APPROPRIATE FOR WHAT WAS DISPENSED. RECENT URINE TOXICOLOGY REVIEWED. NO UNAUTHORIZED MEDICATIONS. NO ILLICIT SUBSTANCES AND PRESCRIBED MEDICATIONS WERE PRESENT. PILL COUNT DONE 38PILLS REMAINING. WILL TRY AGAIN TO GET FENTANYL APPROVED - PT IS ALLERGIC TO MORPHINE, AND THE GOAL IS TO USE LOW DOES REASONABLE AMOUNTS OF MEDICATIONS, AND A TOPICAL WOULD BE THE BEST. PROCEDURE CODES FA211 ESTABILISHED PATIENT [facility] FACILITY CHARGE DISPOSITION & COMMUNICATION FOLLOW UP - (REASON: NEED SHIVA TO TALK TO STAFF AT [facility] AT [facility]) ELECTRONICALLY SIGNED BY EAMON EDUARDO ON 12/09/2016 AT 06:44 PM EST DISCLAIMER : THIS IS A VISIT SUMMARY EXTRACTED FROM THE [employer] CHART. IT IS NOT A COPY OF THE [employer] PROGRESS NOTE. MTDD
== END ==
LOC: M PAIN 11:00
PROVIDERS: ATTEND Nurse Practitioner Family
DX: Z09 Encounter for follow-up examination after completed treatment for conditions other than malignant neoplasm (principal); M96.1 Postlaminectomy syndrome, not elsewhere classified; M46.1 Sacroiliitis, not elsewhere classified; I73.00 Raynaud's syndrome without gangrene; F31.9 Bipolar disorder, unspecified; F41.9 Anxiety disorder, unspecified; G43.909 Migraine, unspecified, not intractable, without status migrainosus; F90.9 Attention-deficit hyperactivity disorder, unspecified type; D83.9 Common variable immunodeficiency, unspecified; J44.9 Chronic obstructive pulmonary disease, unspecified; Z88.8 Allergy status to other drugs, medicaments and biological substances; Z91.040 Latex allergy status; Z88.5 Allergy status to narcotic agent; Z79.1 Long term (current) use of non-steroidal anti-inflammatories (NSAID); Z79.891 Long term (current) use of opiate analgesic; Z79.899 Other long term (current) drug therapy; Z87.891 Personal history of nicotine dependence; Z86.59 Personal history of other mental and behavioral disorders; Z98.84 Bariatric surgery status

== ENCOUNTER → 2016-12-23 | Outpatient (CLI) | payer OTHER ==
[2016-12-23 13:29] LABS: BASO % 0.4 % (0.0-1.0); EOS # 0.1 K/mm3 (0.0-0.50); LYMPH % 36.1 % (24.0-44.0); MEAN CORPUSCULAR HEMOGLOBIN 25.9 pg (27.0-33.0); MEAN CORPUSCULAR VOLUME 83.4 fl (80.0-96.0); MONO # 0.3 K/mm3 (0.0-0.8); MONO % 5.1 % (0.0-5.0); RED CELL DISTRIBUTION WIDTH 16.8 % (11.5-14.5); WHITE BLOOD COUNT 5.5 K/mm3 (4.0-10.0)
[2016-12-23 14:11] LABS: ALBUMIN 3.4 GM/DL (3.2-5.2); ALBUMIN/GLOBULIN RATIO 1.21 (1.00-1.93); ALKALINE PHOSPHATASE 137 U/L (45-117); ALT/SGPT 33 U/L (12-78); ANION GAP 4 MEQ/L (8-16); AST/SGOT 23 U/L (15-37); BILIRUBIN,TOTAL 0.3 MG/DL (0.2-1.0); BLOOD UREA NITROGEN 16 MG/DL (7-18); CALCIUM LEVEL 8.8 MG/DL (8.5-10.1); CARBON DIOXIDE LEVEL 31 MEQ/L (21-32); CHLORIDE LEVEL 108 MEQ/L (98-107); CREATININE FOR GFR 0.79 MG/DL (0.55-1.02); GLOMERULAR FILTRATION RATE > 60.0 (>60); GLUCOSE, FASTING 83 MG/DL (70-105); IMMUNOGLOBULIN G 610 MG/DL (681-1648); POTASSIUM SERUM 4.7 MEQ/L (3.5-5.1); SODIUM LEVEL 143 MEQ/L (136-145); TOTAL PROTEIN 6.2 GM/DL (6.4-8.2)
== END ==
LOC: M LAB 12:59
PROVIDERS: ATTEND Nurse Practitioner Family
DX: D83.9 Common variable immunodeficiency, unspecified (principal)

== ENCOUNTER → 2017-01-01 | Outpatient (CLI) | payer OTHER | LOC: M OUTALCOH 08:35 | PROVIDERS: ATTEND Psychiatry & Neurology Psychiatry | DX: F10.20 Alcohol dependence, uncomplicated (principal); F13.20 Sedative, hypnotic or anxiolytic dependence, uncomplicated ==

== ENCOUNTER → 2017-01-06 | Outpatient (CLI) | payer OTHER ==
[~2017-01-06] MED LIST changes: +GABA-282 PO; -GABA300C3 PO; -MEGE40TA PO; +MEGE40TA18 PO
--- NOTE | 2017-01-16 02:14 | ECWPNPC ---
PATIENT NAME: ADELA ALMONTE : 1980 GENDER: FEMALE VISIT DATE: 01/06/2017 DISCHARGE DATE: 01/06/17 1117 VISIT LOCKED DATE TIME: PHYSICIAN: RUTHY LOPEZ RESOURCE: RUTHY LOPEZ REASON FOR APPOINTMENT 1. 28 DAY F/UP, BACK HISTORY OF PRESENT ILLNESS HISTORY OF PRESENT ILLNESS: PAIN THE PATIENT DESCRIBES THE PAIN... FALL RISK SCREENING: SCREENING :NO FALLS IN THE PAST YEAR TODAY'S VISIT: NOTES: RATES PAIN TODAY 8/10. DESCRIBES PAIN CONSTANT, TENDER, THROBBING, SORE AND SHOOTING. NOTES TODAY IS REALLY BAD AND LOCATED IN [place]. IS ACCOMPANIED BY HER MOTHER FOR THE VISIT WHO REPORTS SHE HAD CONTROL OF ALL OF ADELA'S MEDS. ADELA WILL BE STARTING A SUBSTANCE ABUSE PROGRAM AT [facility].. CURRENT MEDICATIONS TAKING AMERGE 1 MG TABLET 1 TAB(S) ORALLY DAILY NEEDED TAKING IMITREX 4 MG/0.5ML SOLUTION 1 INJECTION NEEDED AT THE ONSET OF A MIGRAINE SUBCUTANEOUS REPEAT TIMES ONE IF NOT EFFECTIVE (DR JC) TAKING GAMMAGARD 10 % SOLUTION INTRAVENOUS EVERY 4 WEEKS TAKING NIFEDIPINE 20 MG CAPSULE 1 CAPSULE ORALLY DAILY TAKING FLUTICASONE PROPIONATE 50 MCG/ACT SUSPENSION 1 SPRAY IN EACH NOSTRIL NASALLY ONCE A DAY TAKING COLACE 100 MG CAPSULE 1 CAPSULE NEEDED ORALLY ONCE A DAY TAKING ZOFRAN ODT 8 MG TABLET DISPERSIBLE 1 ORALLY BID PRN TAKING BACLOFEN 10 MG TABLET 1 TABLET WITH FOOD OR MILK ORALLY THREE TIMES A DAY TAKING ACETAMINOPHEN 500 MG CAPSULE 1 CAPSULES NEEDED ORALLY EVERY 6 HRS PRN TAKING BUSPIRONE HCL 30 MG TABLET 1 TABLET ORALLY TWICE A DAY TAKING VYVANSE 70 MG CAPSULE 1 CAPSULE IN THE MORNING ORALLY ONCE A DAY TAKING LASIX 20 MG TABLET 1 TABLET ORALLY ONCE A DAY TAKING SENNA S 8.6-50 MG TABLET 2 TABLET IN THE EVENING NEEDED ORALLY ONCE A DAY TAKING PHENERGAN 25 MG TABLET 1 TAB ORALLY QID TAKING FENTANYL 12 MCG/HR PATCH 72 HOUR 1 PATCH TO SKIN TRANSDERMAL APPLY 1 PATCH Q 72 HOURS MDD=1 CHRONIC PAIN TAKING LYRICA 225 MG CAPSULE 1 CAPSULE ORALLY Q 8 HRS MDD=3 TAKING CLARITIN 10 MG TABLET 1 TABLET ORALLY ONCE A DAY TAKING SINGULAIR 10 MG TABLET 1 TABLET IN THE EVENING ORALLY ONCE A DAY TAKING PERCOCET 5-325 MG TABLET 1-2 TABLETS ORALLY EVERY 6 HRS PRN PAIN MDD=6 TAKING ZYPREXA 20 MG TABLET 1 TABLET ORALLY ONCE A DAY TAKING ANTABUSE 500 MG TABLET 1 TABLET ORALLY ONCE A DAY TAKING AUGMENTIN 875-125 MG TABLET 1 TABLET ORALLY EVERY 12 HRS TAKING ALBUTEROL SULFATE HFA 108 (90 BASE) MCG/ACT AEROSOL SOLUTION 1-2 PUFFS NEEDED INHALATION EVERY 4 HRS PRN TAKING PROTONIX 40 MG TABLET DELAYED RELEASE 1 TABLET ORALLY ONCE A DAY NOT-TAKING GEODON 40 MG CAPSULE 1 CAPSULE WITH FOOD ORALLY TWICE A DAY NOT-TAKING HYDROXYZINE HCL 25 MG TABLET 1 TABLET NEEDED ORALLY EVERY 8 HRS NOT-TAKING SAPHRIS 5 MG TABLET SUBLINGUAL 1 TABLET UNDER THE TONGUE AND ALLOW TO DISSOLVE SUBLINGUAL TWICE A DAY, NOTES: PT STATES ONLY TAKES AT NIGHT NOT-TAKING DIFLUCAN 150MG (1 TABLET) 150 MG TABLET 1 TABLET ORALLY ONCE A DAY NOT-TAKING IBUPROFEN 600MG PRN PO 400 MG THREE TIMES DAILY NOT-TAKING ALBUTEROL SULFATE (2.5 MG/3ML) 0.083% NEBULIZATION SOLUTION 1 VIAL INHALATION EVERY 6 HRS PRN MEDICATION LIST REVIEWED AND RECONCILED WITH THE PATIENT PAST MEDICAL HISTORY HYPERLIPIDEMIA (RESOLVED WITH GASTRIC BYPASS) MENOPAUSE CHRONIC NECK/MID/LOW BACK PAIN PEPTIC ULCER DISEASE, S/P GASTRIC BYPASS BIPOLAR, ANXIETY, DEPRESSION ALCOHOLISM MIGRAINE HEADACHES TOBACCO USE ADD CHRONIC RHINITIS/SINUSITIS RAYNAUD'S SYNDROME COMMON VARIABLE AUTOIMMUNE DEFICIENCY DISEASE ASTHMA ALLERGIES MORPHINE: HIVES: ALLERGY LATEX: HIVES: ALLERGY DILAUDID: HIVES: ALLERGY REGLAN: HIVES: ALLERGY LAMICTAL: HIVES: ALLERGY DEPAKOTE: CONFUSION: ALLERGY RISPERDAL: SUICIDAL IDEATION: ALLERGY KETOROLAC TROMETHAMINE: ANAPHYLAXIS: ALLERGY GASTROGRAFIN: HIVES: ALLERGY MUSCLE RELAXERS: ALTERED MENTAL STATUS: SIDE EFFECTS SOCIAL HISTORY GENERAL: PAIN CLINIC PFS, CLERGY, PUBLIC HEALTH REFERRALS CLERGY REFERRAL NEEDED?NO WAS THE PROVIDER NOTIFIED OF ANY PERTINENT INFO?NO PFS REFERRAL NEEDED?NO PUBLIC HEALTH REFERRAL NEEDED?NO PATIENT: ____. REVIEW OF SYSTEMS CONSTITUTIONAL: ANY CHANGE IN YOUR MEDICAL CONDITION? YES PT REPORTS SHE HAS A TOOTH ABSCESS, BEING TREATED WITH AUGMENTIN 12/25/16 THROUGH HER PRIMARY. . CHILLS NO . FEVER NO . INFECTION: DO YOU HAVE NEW INFECTIONS? NO . DO YOU HAVE HISTORY OF MRSA? NO . MUSCULOSKELETAL: ANY NEW PATTERNS OF PAIN OR NUMBNESS? NO . GASTROENTEROLOGY: ANY NEW CHANGE IN BOWEL CONTROL? NO . GENITOURINARY: ANY NEW CHANGE IN BLADDER CONTROL? NO . IS THERE A CHANCE YOU COULD BE ? NO . HEMATOLOGY/LYMPH: DO YOU TAKE ANY BLOOD THINNERS? (FOR EXAMPLE- COUMADIN, PLAVIX, AGGRENOX, PLATEL, PRADAXA, OR XARELTO) NO . WHEN WAS YOUR LAST DOSE? DATE: TIME: . NEUROLOGY: HAVE YOU FALLEN IN THE PAST 6 MONTHS? YES PT REPORTS HER RIGHT LEG GAVE OUT WHILE GOING DOWN THE STAIRS, AND SHE SLIPPED DOWN AN ENTIRE SET OF STAIRS. PT DENIES INJURY FROM FALL, NO ED VISIT. . ANY NEW EXTREMITY NUMBNESS OR WEAKNESS? NO . CARDIOLOGY: DO YOU HAVE A PACEMAKER OR DEFIBRILLATOR? NO . RESPIRATORY: HAVE YOU BEEN SICK IN THE PAST WEEK? YES PT REPORTS SINUS/ NASAL CONGESTION OVER THE PAST WEEK, REPORTS NAUSEA OVER THE PAST COUPLE OF DAYS . FEVER NO . FLU LIKE SYMPTOMS? NO . COUGH NO . INTEGUMENTARY: DO YOU HAVE ANY RASHES OR OPEN SORES? NO . ALLERGIC/IMMUNO: ARE YOU ALLERGIC TO SHELLFISH OR IV DYE? NO . ANY NEW ALLERGIES? NO . PSYCHIATRIC: DO YOU HAVE THOUGHTS OF HURTING YOURSELF OR SOMEONE ELSE? NO . ARE YOU ABUSED, NEGLECTED, OR IN AN UNSAFE ENVIRONMENT? NO . ENDOCRINOLOGY: ARE YOU DIABETIC? NO . OTHER: DO YOU NEED ANY PRESCRIPTIONS? NO . IF YES, PLEASE LIST: ____ . ANY NEW PROBLEMS WITH YOUR MEDICATIONS? NO . WHEN DID YOU LAST EAT? ____ . WHEN DID YOU LAST DRINK? ____ . WHAT DID YOU LAST DRINK? ____ . NAME OF PERSON DRIVING YOU HOME? ____ . DO YOU HAVE ANY OTHER QUESTIONS OR CONCERNS YES PT STILL AWAITING AUTHORIZATION FOR FENTANYL PATCH . REVIEWED BY: PROVIDER: RUTHY CALL . VITAL SIGNS WT 179.2 LBS, HT 67 IN, BMI 28.06 INDEX, BP 173/82 MM HG, HR 65 /MIN, RR 18 /MIN, TEMP 97.0 F, OXYGEN SAT % 98%, SAFE IN ENV? (Y/N) YES, NA INITIALS SC 10:25, REVIEWED BY: KEITH. EXAMINATION GENERAL EXAMINATION: PSYCHALERT , ORIENTED X 3 , APPROPRIATE MOOD AND AFFECT , TALKATIVE, SPEACH CLEAR. HEENT:SCLERA NONERYTHEMATOUS. LUNGS:CLEAR TO AUSCULTATION BILATERALLY. HEART:HEART RATE REGULAR. MUSCULOSKELETAL:MUSCLE STRENGTH TESTING 5/5 BILATERAL LOWER EXTREMITIES.TENDER OVER MIDTHORACIC REGION. , PALPATION: POSITIVE FOR PAIN OVER L/S SPINE. POSITIVE FOR PAIN OVER L/S PARSPINALS. POINT TENDERNESS NOTED OVER BILATERAL SACROILIAC JOINTS. TRIGGER POINTS AND TIGHT FIBROUS BANDS IDENTIFIED OVER THE LUMBAR PARAVERTEBRAL MUSCLES.. EXTREMITIES:FEET VERY WARM TO TOUCH TODAY. SKIN:FLAT PINK FACIAL RASH ACROSS CHEEKS. ASSESSMENTS LUMBAR POST-LAMINECTOMY SYNDROME - M96.1 (PRIMARY) SACROILIITIS - M46.1 RAYNAUD'S SYNDROME WITHOUT GANGRENE - I73.00 CHRONIC PRESCRIPTION OPIATE USE - Z79.891 TREATMENT LUMBAR POST-LAMINECTOMY SYNDROME NOTES: TO START EXTENSIVE OUTPT ADDICTION TREATMENT THROUGH [facility] ADDICTION PROGRAM. DECREASE PAIN MED - OXYCODONE TO MAX 4 TABS PER DAY ON MOST DAYS, USE UP TO 6 PER DAY ON BAD PAIN DAYS. CONTINUE NIFIDIPINE. CLINICAL NOTES: ISTOP REGISTRY REVIEWED AND DEMNOSTRATES COMPLLIANCE. BRINGS IN MEDICATIONS WHICH IS APPROPRIATE FOR WHAT WAS DISPENSED. RECENT URINE TOXICOLOGY REVIEWED. NO UNAUTHORIZED MEDICATIONS. NO ILLICIT SUBSTANCES AND PRESCRIBED MEDICATIONS WERE PRESENT. PT TO SEE DR ZEPEDA FOR DECISIONS REGARDING OUR ABILITY TO CONTINUE TREATING PATIENT. SHE IS NOT A CANDIDATE FOR INTERVENTIONAL TREATMENT. MEDICATIONS ARE LIMITED DUE TO MENTAL HEALTH HX AND EPISODES OF ALTERED MENTAL STATUS. INCREASED DOSES OF OPIODS HAVE NOT BEEN EFFECTIVE. PROCEDURE CODES FA211 ESTABILISHED PATIENT [facility] FACILITY CHARGE DISPOSITION & COMMUNICATION FOLLOW UP 26-[address] ZEPEDA - 30 MIN APPOINTMENT. (REASON: FUTURE TREATMENT/MED ISSUES. ) ELECTRONICALLY SIGNED BY EAMON EDUARDO ON 01/15/2017 AT 06:51 PM EDT DISCLAIMER : THIS IS A VISIT SUMMARY EXTRACTED FROM THE [employer] CHART. IT IS NOT A COPY OF THE [employer] PROGRESS NOTE. GELACIO
== END ==
LOC: M PAIN 10:20
PROVIDERS: ATTEND Nurse Practitioner Family
DX: Z09 Encounter for follow-up examination after completed treatment for conditions other than malignant neoplasm (principal); G89.29 Other chronic pain; M46.1 Sacroiliitis, not elsewhere classified; I73.00 Raynaud's syndrome without gangrene; E78.5 Hyperlipidemia, unspecified; D83.9 Common variable immunodeficiency, unspecified; F31.9 Bipolar disorder, unspecified; F41.9 Anxiety disorder, unspecified; F10.21 Alcohol dependence, in remission; F90.9 Attention-deficit hyperactivity disorder, unspecified type; J32.9 Chronic sinusitis, unspecified; Z88.5 Allergy status to narcotic agent; Z91.040 Latex allergy status; Z88.8 Allergy status to other drugs, medicaments and biological substances; Z79.1 Long term (current) use of non-steroidal anti-inflammatories (NSAID); Z79.891 Long term (current) use of opiate analgesic; Z79.899 Other long term (current) drug therapy; Z87.891 Personal history of nicotine dependence

== ENCOUNTER → 2017-01-09 | Outpatient (CLI) | payer OTHER ==
[~2017-01-09] MED LIST changes: +E-Z PAQUE 60% w/v SUSP 355ML BOTTLE As Ordered ONE; +E-Z-GAS II EFFERVESCENT PACKET (SODIUM BICARB./CITRIC ACID/SIMETHICONE) As Ordered ONE; +E-Z-HD 98% w/w 340GM SUSP BTL As Ordered ONE
--- NOTE | 2017-01-09 16:29 | REP ---
DOUBLE CONTRAST UPPER GI SERIES AND SMALL BOWEL FOLLOW THROUGH: Wax Engraver film of the abdomen and pelvis demonstrates multiple moderately dilated small bowel loops in the left abdomen. There is a moderate to large amount of fecal material in the right colon. Multiple metallic clips are seen in the abdomen. Double contrast upper GI series and small bowel follow through is performed. The esophagus is well distended with normal contour, caliber and peristalsis. There is no stricture or mass. There is free flow of barium through the gastroesophageal junction with a very patulous gastroesophageal junction. There are a few tiny esophageal ulcers with associated surrounding edema in the distal esophagus. The patient has had prior gastric bypass procedure. The gastric remnant distended well with no definite ulcer. There is no stricture at the anastomosis with small bowel. There was moderate gastroesophageal reflux into the esophagus a few times during the exam. There is very slow movement of liquid barium through the small bowel. The right colon is visualized 5 hours after initial ingestion of liquid barium. There is intermittent mild to moderate small bowel dilatation diffusely, but I do not see evidence of stricture or persistent filling defect. No mucosal fold thickening is seen. The terminal ileum appears unremarkable. There is no abnormal displacement of small bowel loops. IMPRESSION: A few small ulcers are seen in the distal esophagus. Gastroesophageal junction is very patulous and there is moderate gastroesophageal reflux into the proximal esophagus during the exam. Gastric remnant appears grossly unremarkable with no definite ulcer. There is no stricture at the anastomosis with small bowel. Mild to moderate dilatation of small bowel loops diffusely with slow passage of liquid barium to the colon. The right colon was visualized 5 hours post ingestion. No stricture or other definite abnormality of small bowel. Findings are most consistent with small bowel ileus. 4 minutes 40 seconds fluoroscopy time utilized. Signed by Chava Mendes MD 01/09/2017 05:00 P
== END ==
LOC: M RAD 08:15
PROVIDERS: ATTEND Internal Medicine Gastroenterology
DX: K59.00 Constipation, unspecified (principal); R11.2 Nausea with vomiting, unspecified; Z98.84 Bariatric surgery status; D83.9 Common variable immunodeficiency, unspecified

== ENCOUNTER 2017-01-31 08:45 | Outpatient (RCR) | payer OTHER ==
[~2017-01-31 08:45] MED LIST changes: -E-Z PAQUE 60% w/v SUSP 355ML BOTTLE As Ordered ONE; -E-Z-GAS II EFFERVESCENT PACKET (SODIUM BICARB./CITRIC ACID/SIMETHICONE) As Ordered ONE; -E-Z-HD 98% w/w 340GM SUSP BTL As Ordered ONE
== END 2017-02-02 ==
LOC: M OUTALCOH 08:45
PROVIDERS: ATTEND Psychiatry & Neurology Psychiatry
DX: F10.20 Alcohol dependence, uncomplicated (principal); F13.20 Sedative, hypnotic or anxiolytic dependence, uncomplicated; F17.200 Nicotine dependence, unspecified, uncomplicated

== ENCOUNTER → 2017-02-04 | Outpatient (CLI) | payer OTHER ==
--- NOTE | 2017-02-19 01:08 | ECWPNPC ---
PATIENT NAME: ADELA ALMONTE : 1980 GENDER: FEMALE VISIT DATE: 02/04/2017 DISCHARGE DATE: 02/04/17 1426 VISIT LOCKED DATE TIME: PHYSICIAN: HARRISON ZEPEDA RESOURCE: HARRISON ZEPEDA REASON FOR APPOINTMENT 1. DISCUSSION MEDS HISTORY OF PRESENT ILLNESS HISTORY OF PRESENT ILLNESS: PAIN THE PATIENT DESCRIBES THE PAIN... 37 YEAR OLD FEMALE PATIENT WITH HISTORY OF CHRONIC BACK PAIN. PATIENT DESCRIBES THE PAIN ACHING, BURNING, SHARP, STABBING, TENDER, THROBBING, SORE, SHOOTING, AND HAVING IT ALL THE TIME WITH A PAIN SCORE OF 8/10 ON TODAY'S VISIT. PATIENT STATES THAT SHE IS ALLERGIC TO MORPHINE AND SHE IS CURRENTLY TAKING GAMMAGARD TO BOOST HER IMMUNE SYSTEM. PATIENT REPORTS THAT SHE WOULD LIKE TO HAVE INJECTION TO COME OFF MEDICATIONS. PATIENT STATES THAT SHE HAS VARIABLE AUTO IMMUNE DISEASE. SHE IS CURRENTLY ON THE SUBSTANCE ABUSE PROGRAM AT [facility]. PATIENT REPORTS THAT SHE HAS A LOT OF STOMACH ISSUES DUE TO THE MEDICATIONS AND STATES THAT SHE SUFFERS FROM NAUSEA, VOMITING, CRAMPS, CONSTIPATION AND LOSE STOOLS, AND THEN SHE HAS TO TAKE MORE MEDICATIONS TO HELPS WITH THE SIDE EFFECTS OF HER CURRENT PAIN MEDICATIONS. PATIENT REPORTS THAT SHE HAD A GASTRIC BYPASS IN THE PAST WHICH CHANGED THE WAY HER BODY ABSORBED THE MEDICATIONS. PATIENT STATES THAT TAKING OXYCODONE HELPS TO TAKE THE EDGE OFF THE PAIN, BUT THE PAIN IS STILL THERE. PATIENT STATES THAT SHE CAN NOT TAKE SOMA DUE TO HER BEING TOLERANT TO THE MEDICATION, PATIENT STATES THAT SHE HAS A HISTORY OF ABUSING SOMA IN THE PAST. PATIENT REPORTS OF RADIATING PAIN DOWN THE LEGS FROM HER BACK. PATIENT DENIES UNEXPLAINABLE WEIGHT LOSS, FEVER, CHILLS, NEW CHANGES ON HER URINARY OR BOWEL CONTROL. FALL RISK SCREENING: SCREENING :NO FALLS IN THE PAST YEAR CURRENT MEDICATIONS TAKING AMERGE 1 MG TABLET 1 TAB(S) ORALLY DAILY NEEDED TAKING IMITREX 4 MG/0.5ML SOLUTION 1 INJECTION NEEDED AT THE ONSET OF A MIGRAINE SUBCUTANEOUS REPEAT TIMES ONE IF NOT EFFECTIVE (DR JC) TAKING GAMMAGARD 10 % SOLUTION INTRAVENOUS EVERY 4 WEEKS TAKING NIFEDIPINE 20 MG CAPSULE 1 CAPSULE ORALLY DAILY TAKING ACETAMINOPHEN 500 MG CAPSULE 1 CAPSULES NEEDED ORALLY EVERY 6 HRS PRN TAKING BUSPIRONE HCL 30 MG TABLET 1 TABLET ORALLY TWICE A DAY TAKING VYVANSE 70 MG CAPSULE 1 CAPSULE IN THE MORNING ORALLY ONCE A DAY TAKING PHENERGAN 25 MG TABLET 1 TAB ORALLY QID TAKING LYRICA 225 MG CAPSULE 1 CAPSULE ORALLY Q 8 HRS MDD=3 TAKING ZYPREXA 20 MG TABLET 1 TABLET ORALLY ONCE A DAY TAKING ANTABUSE 500 MG TABLET 1 TABLET ORALLY ONCE A DAY TAKING ALBUTEROL SULFATE HFA 108 (90 BASE) MCG/ACT AEROSOL SOLUTION 1-2 PUFFS NEEDED INHALATION EVERY 4 HRS PRN TAKING PROTONIX 40 MG TABLET DELAYED RELEASE 1 TABLET ORALLY ONCE A DAY TAKING PERCOCET 5-325 MG TABLET 1-2 TABLETS ORALLY EVERY 6 HRS PRN PAIN MDD=6 TAKING SENNA S 8.6-50 MG TABLET 2 TABLET IN THE EVENING NEEDED ORALLY ONCE A DAY TAKING BACLOFEN 10 MG TABLET 1 TABLET WITH FOOD OR MILK ORALLY THREE TIMES A DAY TAKING COLACE 100 MG CAPSULE 1 CAPSULE NEEDED ORALLY ONCE A DAY TAKING FLUTICASONE PROPIONATE 50 MCG/ACT SUSPENSION 1 SPRAY IN EACH NOSTRIL NASALLY ONCE A DAY TAKING DULCOLAX 5 MG TABLET DELAYED RELEASE 1 TABLET NEEDED ORALLY TWICE DAILY (DR LARSEN) TAKING MOVANTIK 25 MG TABLET 1 TABLET IN THE MORNING ORALLY ONCE A DAY NOT-TAKING FENTANYL 12 MCG/HR PATCH 72 HOUR 1 PATCH TO SKIN TRANSDERMAL APPLY 1 PATCH Q 72 HOURS MDD=1 CHRONIC PAIN NOT-TAKING ALBUTEROL SULFATE (2.5 MG/3ML) 0.083% NEBULIZATION SOLUTION 1 VIAL INHALATION EVERY 6 HRS PRN DISCONTINUED ZOFRAN ODT 8 MG TABLET DISPERSIBLE 1 ORALLY BID PRN DISCONTINUED LASIX 20 MG TABLET 1 TABLET ORALLY ONCE A DAY DISCONTINUED AUGMENTIN 875-125 MG TABLET 1 TABLET ORALLY EVERY 12 HRS DISCONTINUED SINGULAIR 10 MG TABLET 1 TABLET IN THE EVENING ORALLY ONCE A DAY DISCONTINUED CLARITIN 10 MG TABLET 1 TABLET ORALLY ONCE A DAY DISCONTINUED TYLENOL EXTRA STRENGTH 500 MG TABLET 1 TABLET NEEDED ORALLY EVERY 6 HRS PRN DISCONTINUED GEODON 40 MG CAPSULE 1 CAPSULE WITH FOOD ORALLY TWICE A DAY DISCONTINUED HYDROXYZINE HCL 25 MG TABLET 1 TABLET NEEDED ORALLY EVERY 8 HRS DISCONTINUED SAPHRIS 5 MG TABLET SUBLINGUAL 1 TABLET UNDER THE TONGUE AND ALLOW TO DISSOLVE SUBLINGUAL TWICE A DAY, NOTES: PT STATES ONLY TAKES AT NIGHT DISCONTINUED DIFLUCAN 150MG (1 TABLET) 150 MG TABLET 1 TABLET ORALLY ONCE A DAY DISCONTINUED IBUPROFEN 600MG PRN PO 400 MG THREE TIMES DAILY MEDICATION LIST REVIEWED AND RECONCILED WITH THE PATIENT PAST MEDICAL HISTORY HYPERLIPIDEMIA (RESOLVED WITH GASTRIC BYPASS) MENOPAUSE CHRONIC NECK/MID/LOW BACK PAIN PEPTIC ULCER DISEASE, S/P GASTRIC BYPASS BIPOLAR, ANXIETY, DEPRESSION ALCOHOLISM MIGRAINE HEADACHES TOBACCO USE ADD CHRONIC RHINITIS/SINUSITIS 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 CRISTOBAL CHOLECYSTECTOMY 07/13 ELIA W/ AGUDELO, APPENDECTOMY 12/13 GASTRIC BYPASS (DR. CARTAGENA, [facility]) 01/2012 LAPAROSCOPY AND REMOVAL OF ADHESIONS (DR. BARRERA) 12/2012 CHEST TUBE ENDOSCOPY/COLONOSCOPY BLOOD TRANSFUSION BLADDER REPAIR 10/2016 FAMILY HISTORY NO FAMILY HISTORY DOCUMENTED. SOCIAL HISTORY GENERAL: PAIN CLINIC PFS, CLERGY, PUBLIC HEALTH REFERRALS CLERGY REFERRAL NEEDED?NO WAS THE PROVIDER NOTIFIED OF ANY PERTINENT INFO?NO PFS REFERRAL NEEDED?NO PUBLIC HEALTH REFERRAL NEEDED?NO PATIENT: ____. HOSPITALIZATION/MAJOR DIAGNOSTIC PROCEDURE SURGERY RELATED [facility] ([facility]) 05/2012 ADMITTED TO [facility] 12/2015 [facility] 10/2015 REVIEW OF SYSTEMS CONSTITUTIONAL: ANY CHANGE IN YOUR MEDICAL CONDITION? NO . CHILLS NO . FEVER NO . INFECTION: DO YOU HAVE NEW INFECTIONS? NO . DO YOU HAVE HISTORY OF MRSA? NO . MUSCULOSKELETAL: ANY NEW PATTERNS OF PAIN OR NUMBNESS? YES, PAIN IS REALLY BAD IN THE SIATIC AREA. SOME NUMBNESS. MIGRAINES HAVE STARTED BACK UP. . GASTROENTEROLOGY: ANY NEW CHANGE IN BOWEL CONTROL? NO . GENITOURINARY: ANY NEW CHANGE IN BLADDER CONTROL? NO . IS THERE A CHANCE YOU COULD BE ? NO . HEMATOLOGY/LYMPH: DO YOU TAKE ANY BLOOD THINNERS? (FOR EXAMPLE- COUMADIN, PLAVIX, AGGRENOX, PLATEL, PRADAXA, OR XARELTO) NO . WHEN WAS YOUR LAST DOSE? DATE: TIME: . NEUROLOGY: HAVE YOU FALLEN IN THE PAST 6 MONTHS? YES . ANY NEW EXTREMITY NUMBNESS OR WEAKNESS? NO . CARDIOLOGY: DO YOU HAVE A PACEMAKER OR DEFIBRILLATOR? NO . RESPIRATORY: HAVE YOU BEEN SICK IN THE PAST WEEK? NO . FEVER NO . FLU LIKE SYMPTOMS? NO . COUGH NO . INTEGUMENTARY: DO YOU HAVE ANY RASHES OR OPEN SORES? NO . ALLERGIC/IMMUNO: ARE YOU ALLERGIC TO SHELLFISH OR IV DYE? NO . ANY NEW ALLERGIES? NO . PSYCHIATRIC: DO YOU HAVE THOUGHTS OF HURTING YOURSELF OR SOMEONE ELSE? NO . ARE YOU ABUSED, NEGLECTED, OR IN AN UNSAFE ENVIRONMENT? NO . ENDOCRINOLOGY: ARE YOU DIABETIC? NO . OTHER: DO YOU NEED ANY PRESCRIPTIONS? YES . IF YES, PLEASE LIST: OXYCODONES . ANY NEW PROBLEMS WITH YOUR MEDICATIONS? NO . WHEN DID YOU LAST EAT? ____ . WHEN DID YOU LAST DRINK? ____ . WHAT DID YOU LAST DRINK? ____ . NAME OF PERSON DRIVING YOU HOME? ____ . DO YOU HAVE ANY OTHER QUESTIONS OR CONCERNS YES, PAIN MANAGEMENT . REVIEWED BY: PROVIDER: HARRISON ZEPEDA MD . VITAL SIGNS WT 180.3 LBS, HT 67 IN, BMI 28.24 INDEX, BP 141/82 MM HG, HR 107 /MIN, RR 18 /MIN, TEMP 97.5 F, OXYGEN SAT % 96, NA INITIALS AW 1250, REVIEWED BY: CM. EXAMINATION : PATIENT IS ALERT O X 3 AND COOPERATIVE. THERE IS TENDERNESS IN THE MID TO LOW BACK PARASPINAL MUSCLE GROUP WITH BANDS OF TISSUES, RESTRICTION OF MOVEMENT, AND PRESENCE OF TRIGGER POINTS. THERE IS ALSO TENDERNESS IN THE FACET JOINTS IN THE MID TO LOW BACK. THERE IS TENDERNESS IN THE BILATERAL SACROILIAC JOINTS. MRI OF THE LUMBAR SPINE DONE ON 09/04/2016 SHOWS POSTOPERATIVE CHANGES, DISC BULGING AND NEURAL FORAMINAL NARROWING AT L4-L5, DEGENERATIVE DISC NARROWING AND DECREASED SIGNAL INTENSITY AT L5-S1. 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 ALMONTE'S PAIN MANAGEMENT CASE. AT THIS TIME I WILL HAVE THE PATIENT START ON FENTANYL PATCH TO SEE IF WE CAN DECREASE THE NUMBER OF MEDICATIONS THE PATIENT IS CURRENTLY TAKING. PATIENT WILL ALSO START ON CYCLOBENZAPRINE TODAY FOR PAIN AND SPASTICITY. AFTER EXAMINING THE PATIENT AND REVIEWING THE LUMBAR MRI PATIENT IS A GOOD CANDIDATE FOR A FEW INJECTIONS, BUT DUE TO THE PATIENT CURRENTLY TAKING GAMMAGARD, I WILL FIRST LIKE TO TALK TO DR. RIVERA ABOUT PROCEEDING WITH INJECTIONS IN THE FUTURE. PATIENT TO FOLLOW UP WITH ME IN 1 WEEK. INSTRUCTIONS WERE GIVEN, QUESTIONS WERE ANSWERED, PATIENT REPORTS UNDERSTANDING AND AGREES WITH THE PLAN. I, KEKE FONTAINE, DOCUMENTED THE ABOVE INFORMATION ACTING A SCRIBE FOR DR. ZEPEDA. I HAVE REVIEWED THE ABOVE DOCUMENT, WRITTEN BY KEKE FONTAINE SCRIBE AND I VERIFY THAT IT IS ACCURATE. OTHERS START FENTANYL PATCH 72 HOUR, 25 MCG/HR, 1 PATCH TO SKIN, TRANSDERMAL, Q 72 HRS FOR PAIN, 30 DAY(S), 10, REFILLS 0 START CYCLOBENZAPRINE HCL TABLET, 10 MG, 1 TABLET NEEDED, ORALLY, Q 6 HRS NEEDED FOR SPASMS AND PAIN MDD3, 30 DAY(S), 80, REFILLS 1 PROCEDURE CODES FA211 ESTABILISHED PATIENT [facility] FACILITY CHARGE G8730 PAIN ASSESS POS TOOL F/U PLAN DOC G8427 DOC MEDS VERIFIED W/PT OR RE DISPOSITION & COMMUNICATION FOLLOW UP 1 WEEK ELECTRONICALLY SIGNED BY HARRISON ZEPEDA MD ON 02/18/2017 AT 09:16 AM EDT DISCLAIMER : THIS IS A VISIT SUMMARY EXTRACTED FROM THE [employer] CHART. IT IS NOT A COPY OF THE [employer] PROGRESS NOTE. MTDD
== END ==
LOC: M PAIN 12:40
PROVIDERS: ATTEND Anesthesiology
DX: M96.1 Postlaminectomy syndrome, not elsewhere classified (principal); M47.816 Spondylosis without myelopathy or radiculopathy, lumbar region; M47.817 Spondylosis without myelopathy or radiculopathy, lumbosacral region; M51.16 Intervertebral disc disorders with radiculopathy, lumbar region; M51.17 Intervertebral disc disorders with radiculopathy, lumbosacral region; M46.1 Sacroiliitis, not elsewhere classified; E78.5 Hyperlipidemia, unspecified; F31.9 Bipolar disorder, unspecified; F41.9 Anxiety disorder, unspecified; G43.909 Migraine, unspecified, not intractable, without status migrainosus; Z72.0 Tobacco use; F90.9 Attention-deficit hyperactivity disorder, unspecified type; I73.00 Raynaud's syndrome without gangrene; J45.909 Unspecified asthma, uncomplicated; Z88.5 Allergy status to narcotic agent; Z91.040 Latex allergy status; Z88.8 Allergy status to other drugs, medicaments and biological substances; Z79.891 Long term (current) use of opiate analgesic; Z79.899 Other long term (current) drug therapy; Z86.59 Personal history of other mental and behavioral disorders

== ENCOUNTER → 2017-02-13 | Outpatient (CLI) | payer OTHER ==
[~2017-02-13] MED LIST changes: +ANTA500T PO; +BUSP30TA PO; +CYCL10TA PO; +LATU1TAB PO; +LYRI225C PO
--- NOTE | 2017-02-26 01:56 | ECWPNPC ---
PATIENT NAME: ADELA ALMONTE : 1980 GENDER: FEMALE VISIT DATE: 02/13/2017 DISCHARGE DATE: 02/13/17 1641 VISIT LOCKED DATE TIME: PHYSICIAN: HARRISON ZEPEDA RESOURCE: HARRISON ZEPEDA REASON FOR APPOINTMENT 1. MEDS HISTORY OF PRESENT ILLNESS HISTORY OF PRESENT ILLNESS: PAIN THE PATIENT DESCRIBES THE PAIN... 37 YEAR OLD FEMALE PATIENT WITH HISTORY OF CHRONIC BACK PAIN. PATIENT DESCRIBES THE PAIN ACHING, BURNING, SHARP, STABBING, TENDER, THROBBING, SORE, SHOOTING, AND HAVING IT ALL THE TIME WITH A PAIN SCORE OF 8/10 ON TODAY'S VISIT. PATIENT STATES THAT SHE IS ALLERGIC TO MORPHINE AND SHE IS CURRENTLY TAKING GAMMAGARD TO BOOST HER IMMUNE SYSTEM. PATIENT STATES THAT SHE HAS VARIABLE AUTO IMMUNE DISEASE. SHE IS CURRENTLY ON THE SUBSTANCE ABUSE PROGRAM AT [facility]. PATIENT REPORTS THAT SHE HAS A LOT OF STOMACH ISSUES DUE TO THE MEDICATIONS AND STATES THAT SHE SUFFERS FROM NAUSEA, VOMITING, CRAMPS, CONSTIPATION AND LOSE STOOLS, AND THEN SHE HAS TO TAKE MORE MEDICATIONS TO HELPS WITH THE SIDE EFFECTS OF HER CURRENT PAIN MEDICATIONS. PATIENT REPORTS THAT SHE HAD A GASTRIC BYPASS IN THE PAST WHICH CHANGED THE WAY HER BODY ABSORBED THE MEDICATIONS. AND DUE TO THE GASTRIC BYPASS SHE IS UNABLE TO TAKE NSAIDS. PATIENT STATES THAT SHE CAN NOT TAKE SOMA DUE TO HER BEING TOLERANT TO THE MEDICATION, PATIENT STATES THAT SHE HAS A HISTORY OF ABUSING SOMA IN THE PAST. PATIENT REPORTS OF RADIATING PAIN DOWN THE LEGS FROM HER BACK. PATIENT REPORTS THAT HE EYE IS TWITCHING AND IS BEGINNING TO BOTHER HER. PATIENT DENIES UNEXPLAINABLE WEIGHT LOSS, FEVER, CHILLS, NEW CHANGES ON HER URINARY OR BOWEL CONTROL. FALL RISK SCREENING: SCREENING :NO FALLS IN THE PAST YEAR CURRENT MEDICATIONS TAKING FENTANYL 25 MCG/HR PATCH 72 HOUR 1 PATCH TO SKIN TRANSDERMAL Q 72 HRS FOR PAIN TAKING CYCLOBENZAPRINE HCL 10 MG TABLET 1 TABLET NEEDED ORALLY Q 6 HRS NEEDED FOR SPASMS AND PAIN MDD3 TAKING AMERGE 1 MG TABLET 1 TAB(S) ORALLY DAILY NEEDED TAKING IMITREX 4 MG/0.5ML SOLUTION 1 INJECTION NEEDED AT THE ONSET OF A MIGRAINE SUBCUTANEOUS REPEAT TIMES ONE IF NOT EFFECTIVE (DR JC) TAKING GAMMAGARD 10 % SOLUTION INTRAVENOUS EVERY 4 WEEKS TAKING NIFEDIPINE 20 MG CAPSULE 1 CAPSULE ORALLY DAILY TAKING ACETAMINOPHEN 500 MG CAPSULE 1 CAPSULES NEEDED ORALLY EVERY 6 HRS PRN TAKING BUSPIRONE HCL 30 MG TABLET 1 TABLET ORALLY TWICE A DAY TAKING VYVANSE 70 MG CAPSULE 1 CAPSULE IN THE MORNING ORALLY ONCE A DAY TAKING PHENERGAN 25 MG TABLET 1 TAB ORALLY QID TAKING LYRICA 225 MG CAPSULE 1 CAPSULE ORALLY Q 8 HRS MDD=3 TAKING ZYPREXA 20 MG TABLET 1 TABLET ORALLY ONCE A DAY TAKING ANTABUSE 500 MG TABLET 1 TABLET ORALLY ONCE A DAY TAKING ALBUTEROL SULFATE HFA 108 (90 BASE) MCG/ACT AEROSOL SOLUTION 1-2 PUFFS NEEDED INHALATION EVERY 4 HRS PRN TAKING PROTONIX 40 MG TABLET DELAYED RELEASE 1 TABLET ORALLY ONCE A DAY TAKING PERCOCET 5-325 MG TABLET 1-2 TABLETS ORALLY EVERY 6 HRS PRN PAIN MDD=6 TAKING SENNA S 8.6-50 MG TABLET 2 TABLET IN THE EVENING NEEDED ORALLY ONCE A DAY TAKING COLACE 100 MG CAPSULE 1 CAPSULE NEEDED ORALLY ONCE A DAY TAKING FLUTICASONE PROPIONATE 50 MCG/ACT SUSPENSION 1 SPRAY IN EACH NOSTRIL NASALLY ONCE A DAY TAKING DULCOLAX 5 MG TABLET DELAYED RELEASE 1 TABLET NEEDED ORALLY TWICE DAILY (DR LARSEN) TAKING MOVANTIK 25 MG TABLET 1 TABLET IN THE MORNING ORALLY ONCE A DAY NOT-TAKING BACLOFEN 10 MG TABLET 1 TABLET WITH FOOD OR MILK ORALLY THREE TIMES A DAY NOT-TAKING FENTANYL 12 MCG/HR PATCH 72 HOUR 1 PATCH TO SKIN TRANSDERMAL APPLY 1 PATCH Q 72 HOURS MDD=1 CHRONIC PAIN NOT-TAKING ALBUTEROL SULFATE (2.5 MG/3ML) 0.083% NEBULIZATION SOLUTION 1 VIAL INHALATION EVERY 6 HRS PRN MEDICATION LIST REVIEWED AND RECONCILED WITH THE PATIENT PAST MEDICAL HISTORY HYPERLIPIDEMIA (RESOLVED WITH GASTRIC BYPASS) MENOPAUSE CHRONIC NECK/MID/LOW BACK PAIN PEPTIC ULCER DISEASE, S/P GASTRIC BYPASS BIPOLAR, ANXIETY, DEPRESSION ALCOHOLISM MIGRAINE HEADACHES TOBACCO USE ADD CHRONIC RHINITIS/SINUSITIS 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 CRISTOBAL CHOLECYSTECTOMY 07/13 ELIA W/ AGUDELO, APPENDECTOMY 12/13 GASTRIC BYPASS (DR. CARTAGENA, [facility]) 01/2012 LAPAROSCOPY AND REMOVAL OF ADHESIONS (DR. BARRERA) 12/2012 CHEST TUBE ENDOSCOPY/COLONOSCOPY BLOOD TRANSFUSION BLADDER REPAIR 10/2016 FAMILY HISTORY NO FAMILY HISTORY DOCUMENTED. SOCIAL HISTORY GENERAL: TOBACCO USE ARE YOU A:CURRENT SMOKER HOW MANY CIGARETTES A DAY DO YOU SMOKE?5 OR LESS HOW SOON AFTER YOU WAKE UP DO YOU SMOKE YOUR FIRST CIGARETTE?AFTER 60 MIN HOW OFTEN DO YOU SMOKE CIGARETTES?SOME DAYS, BUT NOT EVERY DAY PATIENT COUNSELED ON THE DANGERS OF TOBACCO USE AND URGED TO QUIT:02/13/2017 ARE YOU INTERESTED IN QUITTING?NOT READY TO QUIT COUNSELED THE PATIENT ON SMOKING EFFECTS, EDUCATION [id number]/11/2017 ALCOHOL SCREENING POINTS0 INTERPRETATIONNEGATIVE CAFFEINE CAFFEINE USE?YES 2-3 CUPS COFFEE & ICED TEA THROUGH THE DAY. PAIN CLINIC PFS, CLERGY, PUBLIC HEALTH REFERRALS WAS THE PROVIDER NOTIFIED OF ANY PERTINENT INFO?YES PATIENT: ____. HOSPITALIZATION/MAJOR DIAGNOSTIC PROCEDURE SURGERY RELATED [facility] ([facility]) 05/2012 ADMITTED TO [facility] 12/2015 [facility] 10/2015 REVIEW OF SYSTEMS CONSTITUTIONAL: ANY CHANGE IN YOUR MEDICAL CONDITION? NO . CHILLS NO . FEVER NO . INFECTION: DO YOU HAVE NEW INFECTIONS? NO . DO YOU HAVE HISTORY OF MRSA? NO . MUSCULOSKELETAL: ANY NEW PATTERNS OF PAIN OR NUMBNESS? YES. PT STATES NEW PATTERNS OF NUMBESS, PAIN, BURNING AND TINGLING TO VASQUEZ LEGS AND BILAT ARMS. PT RATES PAIN 8/10. PT STATES LYRICA HELPS TO BRING PAIN DOWN TO 4-5/10. . GASTROENTEROLOGY: ANY NEW CHANGE IN BOWEL CONTROL? NO . GENITOURINARY: ANY NEW CHANGE IN BLADDER CONTROL? NO . IS THERE A CHANCE YOU COULD BE ? NO . HEMATOLOGY/LYMPH: DO YOU TAKE ANY BLOOD THINNERS? (FOR EXAMPLE- COUMADIN, PLAVIX, AGGRENOX, PLATEL, PRADAXA, OR XARELTO) NO . WHEN WAS YOUR LAST DOSE? DATE: TIME: . NEUROLOGY: HAVE YOU FALLEN IN THE PAST 6 MONTHS? YES. PT REPORTS FALLING DOWN 2 STAIRS INTO PET GATE AT BOTTOM OF STAIRS. PT DENIES INJURIES FROM FALL. PT STATES HER LEFT KNEE GAVE OUT CAUSING HER TO FALL. . ANY NEW EXTREMITY NUMBNESS OR WEAKNESS? NO . CARDIOLOGY: DO YOU HAVE A PACEMAKER OR DEFIBRILLATOR? NO . RESPIRATORY: HAVE YOU BEEN SICK IN THE PAST WEEK? NO . FEVER NO . FLU LIKE SYMPTOMS? NO . COUGH NO . INTEGUMENTARY: DO YOU HAVE ANY RASHES OR OPEN SORES? NO . ALLERGIC/IMMUNO: ARE YOU ALLERGIC TO SHELLFISH OR IV DYE? NO . ANY NEW ALLERGIES? NO . PSYCHIATRIC: DO YOU HAVE THOUGHTS OF HURTING YOURSELF OR SOMEONE ELSE? NO . ARE YOU ABUSED, NEGLECTED, OR IN AN UNSAFE ENVIRONMENT? NO . ENDOCRINOLOGY: ARE YOU DIABETIC? NO . OTHER: DO YOU NEED ANY PRESCRIPTIONS? NO . IF YES, PLEASE LIST: ____ . ANY NEW PROBLEMS WITH YOUR MEDICATIONS? NO . WHEN DID YOU LAST EAT? ____ . WHEN DID YOU LAST DRINK? ____ . WHAT DID YOU LAST DRINK? ____ . NAME OF PERSON DRIVING YOU HOME? ____ . DO YOU HAVE ANY OTHER QUESTIONS OR CONCERNS NO . REVIEWED BY: PROVIDER: HARRISON ZEPEDA MD . VITAL SIGNS WT 187.2 LBS, HT 67 IN, BMI 29.32 INDEX, BP 133/84 MM HG, HR 109 /MIN, RR 18 /MIN, TEMP 97.2 F, OXYGEN SAT % 97, SAFE IN ENV? (Y/N) Y, NA INITIALS AW 1537, REVIEWED BY: EM. EXAMINATION : PATIENT IS ALERT O X 3 AND COOPERATIVE. THERE IS TENDERNESS IN THE MID TO LOW BACK PARASPINAL MUSCLE GROUP WITH BANDS OF TISSUES, RESTRICTION OF MOVEMENT, AND PRESENCE OF TRIGGER POINTS. THERE IS TENDERNESS IN THE BILATERAL SACROILIAC JOINTS. MRI OF THE LUMBAR SPINE DONE ON 09/04/2016 SHOWS POSTOPERATIVE CHANGES, DISC BULGING AND NEURAL FORAMINAL NARROWING AT L4-L5, DEGENERATIVE DISC NARROWING AND DECREASED SIGNAL INTENSITY AT L5-S1. ASSESSMENTS SACROILIITIS, NOT ELSEWHERE CLASSIFIED - M46.1 (PRIMARY) POSTLAMINECTOMY SYNDROME, NOT ELSEWHERE CLASSIFIED - M96.1 TREATMENT SACROILIITIS, NOT ELSEWHERE CLASSIFIED NOTES: WE DISCUSSED SEVERAL ISSUES WITH MS. ALMONTE'S PAIN MANAGEMENT CASE. AT THIS TIME THE PATIENT WILL CONTINUE ON THE SAME MEDICATION REGIMEN BEFORE. AFTER EXAMINING AND DISCUSSING WITH THE PATIENT AND REVIEWING THE LUMBAR MRI, PATIENT IS A GOOD CANDIDATE FOR A SACROILIAC JOINT INJECTION, WE DISCUSSED THE RISK, BENEFITS, AND ALTERNATIVES AND THE PATIENT WOULD LIKE TO PROCEED FORWARD. I ALSO DISCUSSED WITH THE PATIENT THAT SINCE SHE IS TAKING GAMMAGARD I WOULD LIKE TO SPEAK WITH DR. RIVERA ABOUT PROCEEDING FORWARD WITH INJECTIONS. AT THIS TIME I WILL PUT A REQUEST FOR AN SIJ, AND PENDING THE DISCUSSION WITH DR. RIVERA PATIENT WILL BE BOOKED. PATIENT WILL FOLLOW UP WITH ME IN 1 MONTH. INSTRUCTIONS WERE GIVEN, QUESTIONS WERE ANSWERED, PATIENT REPORTS UNDERSTANDING AND AGREES WITH THE PLAN. I, KEKE FONTAINE, DOCUMENTED THE ABOVE INFORMATION ACTING A SCRIBE FOR DR. ZEPEDA. I HAVE REVIEWED THE ABOVE DOCUMENT, WRITTEN BY KEKE FONTAINE SCRIBE AND I VERIFY THAT IT IS ACCURATE. PREVENTIVE MEDICINE PAIN CLINIC TEACHING: PROCEDURE TEACHING PRINTED INFORMATION ON [facility]J INJECITON GIVEN TO AND EXPLAINED TO PT. ALONG WITH PRE-PROCEDURE INSTRUCTIONS. PT. VERBALIZED UNDERSTANDING OF BOTH. AD. PROCEDURE CODES FA211 ESTABILISHED PATIENT [facility] FACILITY CHARGE G8730 PAIN ASSESS POS TOOL F/U PLAN DOC G8427 DOC MEDS VERIFIED W/PT OR RE DISPOSITION & COMMUNICATION FOLLOW UP 4 WEEKS ELECTRONICALLY SIGNED BY HARRISON ZEPEDA MD ON 02/25/2017 AT 05:58 PM EDT DISCLAIMER : THIS IS A VISIT SUMMARY EXTRACTED FROM THE [employer] CHART. IT IS NOT A COPY OF THE [employer] PROGRESS NOTE. GELACIO
== END ==
LOC: M PAIN 16:00
PROVIDERS: ATTEND Anesthesiology
DX: G89.4 Chronic pain syndrome (principal); M46.1 Sacroiliitis, not elsewhere classified; M96.1 Postlaminectomy syndrome, not elsewhere classified; D83.9 Common variable immunodeficiency, unspecified; R11.0 Nausea; E78.5 Hyperlipidemia, unspecified; D50.9 Iron deficiency anemia, unspecified; M79.1 Myalgia; I87.2 Venous insufficiency (chronic) (peripheral); F31.9 Bipolar disorder, unspecified; F41.9 Anxiety disorder, unspecified; F10.21 Alcohol dependence, in remission; G43.909 Migraine, unspecified, not intractable, without status migrainosus; Z72.0 Tobacco use; I73.00 Raynaud's syndrome without gangrene; J30.89 Other allergic rhinitis; Z88.5 Allergy status to narcotic agent; Z91.040 Latex allergy status; Z88.8 Allergy status to other drugs, medicaments and biological substances; Z79.891 Long term (current) use of opiate analgesic; Z79.899 Other long term (current) drug therapy; Z98.84 Bariatric surgery status

== ENCOUNTER → 2017-02-25 | Outpatient (REF) | payer OTHER ==
[~2017-02-25] MED LIST changes: -ANTA500T PO; -BUSP30TA PO; -CYCL10TA PO; -LATU1TAB PO; -LYRI225C PO
[2017-02-25 12:07] LABS: MEAN CORPUSCULAR HGB CONC 31.5 g/dl (32.0-36.5); MEAN CORPUSCULAR VOLUME 85.6 fl (80.0-96.0); WHITE BLOOD COUNT 6.1 K/mm3 (4.0-10.0)
[2017-02-25 12:08] LABS: VITAMIN B12 LEVEL 372 PG/ML (247-911)
[2017-02-25 12:09] LABS: FOLATE > 24.0 NG/ML (>5.4)
[2017-02-25 12:18] LABS: ALBUMIN 3.4 GM/DL (3.2-5.2); ALBUMIN/GLOBULIN RATIO 0.85 (1.00-1.93); ALKALINE PHOSPHATASE 150 U/L (45-117); ALT/SGPT 50 U/L (12-78); ANION GAP 6 MEQ/L (8-16); AST/SGOT 30 U/L (15-37); BILIRUBIN,TOTAL 0.2 MG/DL (0.2-1.0); BLOOD UREA NITROGEN 11 MG/DL (7-18); CALCIUM LEVEL 9.3 MG/DL (8.5-10.1); CARBON DIOXIDE LEVEL 29 MEQ/L (21-32); CHLORIDE LEVEL 106 MEQ/L (98-107); CREATININE FOR GFR 0.97 MG/DL (0.55-1.02); FERRITIN 7 NG/ML (8-252); GLOMERULAR FILTRATION RATE > 60.0 (>60); GLUCOSE, FASTING 63 MG/DL (70-105); POTASSIUM SERUM 5.1 MEQ/L (3.5-5.1); SODIUM LEVEL 141 MEQ/L (136-145); TOTAL PROTEIN 7.4 GM/DL (6.4-8.2)
== END ==
LOC: M SFHCLERA 10:04
PROVIDERS: ATTEND Physician Assistant
DX: Z98.84 Bariatric surgery status (principal)

== ENCOUNTER → 2017-03-05 | Outpatient (RCR) | payer OTHER ==
[~2017-03-05] MED LIST changes: +ANTA500T PO; +BUSP30TA PO; +CYCL10TA PO; +DIFL150T PO; +DOXY100C37 PO; +LATU1TAB PO; +LYRI225C PO
== END ==
LOC: M OUTALCOH 02-05 12:28
PROVIDERS: ATTEND Psychiatry & Neurology Psychiatry
DX: F10.20 Alcohol dependence, uncomplicated (principal); F13.20 Sedative, hypnotic or anxiolytic dependence, uncomplicated; F17.200 Nicotine dependence, unspecified, uncomplicated

== ENCOUNTER 2017-03-13 19:13 | Emergency (ER) | payer OTHER ==
[~2017-03-13] VITALS: Ht 170.2 cm; Wt 84.8 kg
[~2017-03-13 19:13] MED LIST changes: -ANTA500T PO; -BUSP30TA PO; -CYCL10TA PO; -DIFL150T PO; -DOXY100C37 PO; -LATU1TAB PO; -LYRI225C PO
[2017-03-13] MEDS ORDERED: VYVA70CA3 PO (19:31)
[2017-03-13] MEDS ORDERED: LATU1TAB PO (19:31)
[2017-03-13] MEDS ORDERED: CYCL10TA PO (19:31)
[2017-03-13] MEDS ORDERED: BUSP30TA PO (19:31)
[2017-03-13] MEDS ORDERED: ANTA500T PO (19:31)
[2017-03-13] MEDS ORDERED: LYRI225C PO (19:31)
[2017-03-13] MEDS ORDERED: FLUCONAZOLE 100 MG TAB PO ONE (21:30)
[2017-03-13] MEDS ORDERED: FLUCONAZOLE 50MG TABLET PO ONE (21:30)
[2017-03-13] MEDS ORDERED: DOXYCYCLINE HYCLATE 100 MG TAB PO ONE (21:30)
--- NOTE | 2017-03-13 21:31 | ED PDOC ---
Post-Departure Follow-Up Patient presents to the ED for evaluation of a head injury that occurred 1 week ago. She states that she stood up, under a counter, and hit the top of her head twice. She sustained a small superficial laceration that she did not have evaluated at that time. Since the injury, she has been picking at the wound, which has made it more swollen and tender. She has also been experiencing symptoms consistent with a concussion, headache, poor concentration, occasional dizziness. She was seen at the pain clinic today, for a routine visit, and was advised by Dr Eduardo, to be seen at Urgent Care for her wound. She states that urgent care told her that she needed a CT head done and sent her to the ED. The remainder of her H&P and ROS is as noted on the T-sheet. There isn't any indication for a head CT at this time. She does have a cutaneous abscess on her scalp. She was medicated with Doxycycline for the abscess and given a dose of Diflucan prophylactically to prevent yeast infection. Discharge plan was discussed with the patient including concussion care and follow-up, prescription for antibiotic and an additional Diflucan and worrisome signs to return to the ED for. Questions answered. Patient states understanding to the instructions. MY PAULINO. JAKUB Mar 13, 2017 21:31
[2017-03-13] MEDS ORDERED: DOXY100C37 PO (21:42)
[2017-03-13] MEDS ORDERED: DIFL150T PO (21:42)
[2017-03-13 22:02] VITALS: BP 136/92
== END 2017-03-13 22:06 | disposition home or self-care (01) ==
LOC: M ED 21:38
DX: S06.0X0A Concussion without loss of consciousness, initial encounter (principal); W22.09XA Striking against other stationary object, initial encounter; Y92.89 Other specified places as the place of occurrence of the external cause; Y93.89 Activity, other specified; Y99.8 Other external cause status; L02.811 Cutaneous abscess of head [any part, except face]; G89.29 Other chronic pain; M54.9 Dorsalgia, unspecified; F41.9 Anxiety disorder, unspecified; F33.9 Major depressive disorder, recurrent, unspecified; K58.9 Irritable bowel syndrome, unspecified; G43.909 Migraine, unspecified, not intractable, without status migrainosus; Z79.899 Other long term (current) drug therapy; Z88.5 Allergy status to narcotic agent; Z88.8 Allergy status to other drugs, medicaments and biological substances; Z91.040 Latex allergy status; F17.210 Nicotine dependence, cigarettes, uncomplicated

== ENCOUNTER → 2017-03-13 | Outpatient (CLI) | payer OTHER ==
--- NOTE | 2017-03-25 02:49 | ECWPNPC ---
PATIENT NAME: ADELA ALMONTE : 1980 GENDER: FEMALE VISIT DATE: 03/13/2017 DISCHARGE DATE: 03/13/17 1706 VISIT LOCKED DATE TIME: PHYSICIAN: HARRISON ZEPEDA RESOURCE: HARRISON ZEPEDA HISTORY OF PRESENT ILLNESS HISTORY OF PRESENT ILLNESS: PAIN THE PATIENT DESCRIBES THE PAIN... 37 YEAR OLD FEMALE PATIENT WITH HISTORY OF CHRONIC BACK PAIN. PATIENT DESCRIBES THE PAIN ACHING, BURNING, SHARP, STABBING, TENDER, THROBBING, SORE, SHOOTING, AND HAVING IT ALL THE TIME WITH A PAIN SCORE OF 7/10 ON TODAY'S VISIT. PATIENT REPORTS THAT SHE BUMPED HER HEAD AND IT DOES BLEED. PATIENT REPORTS THAT SHE HAS TRIED GABAPENTIN IN THE PAST AND IT DID NOT WORK, AND THE PROVIDER SWITCHED HER TO LYRICA IT HELPS WITH THE BURNING, TINGLING, PAIN IN THE LEGS AND FEET BUT THE PAIN IS STILL THERE. PATIENT REPORTS THAT SHE IS ALLERGIC TO MORPHINE. PATIENT DENIES UNEXPLAINABLE WEIGHT LOSS, FEVER, CHILLS, NEW CHANGES ON HIS URINARY OR BOWEL CONTROL. FALL RISK SCREENING: SCREENING :NO FALLS IN THE PAST YEAR CURRENT MEDICATIONS TAKING FENTANYL 25 MCG/HR PATCH 72 HOUR 1 PATCH TO SKIN TRANSDERMAL Q 72 HRS FOR PAIN, NOTES: HASN'T GOTTEN YET TAKING CYCLOBENZAPRINE HCL 10 MG TABLET 1 TABLET NEEDED ORALLY Q 6 HRS NEEDED FOR SPASMS AND PAIN MDD3 TAKING AMERGE 1 MG TABLET 1 TAB(S) ORALLY DAILY NEEDED TAKING IMITREX 4 MG/0.5ML SOLUTION 1 INJECTION NEEDED AT THE ONSET OF A MIGRAINE SUBCUTANEOUS REPEAT TIMES ONE IF NOT EFFECTIVE (DR JC) TAKING GAMMAGARD 10 % SOLUTION INTRAVENOUS EVERY 4 WEEKS TAKING NIFEDIPINE 20 MG CAPSULE 1 CAPSULE ORALLY DAILY TAKING ACETAMINOPHEN 500 MG CAPSULE 1 CAPSULES NEEDED ORALLY EVERY 6 HRS PRN TAKING BUSPIRONE HCL 30 MG TABLET 1 TABLET ORALLY TWICE A DAY TAKING VYVANSE 70 MG CAPSULE 1 CAPSULE IN THE MORNING ORALLY ONCE A DAY TAKING PHENERGAN 25 MG TABLET 1 TAB ORALLY QID TAKING LYRICA 225 MG CAPSULE 1 CAPSULE ORALLY Q 8 HRS MDD=3 TAKING ANTABUSE 500 MG TABLET 1 TABLET ORALLY ONCE A DAY TAKING PROTONIX 40 MG TABLET DELAYED RELEASE 1 TABLET ORALLY ONCE A DAY TAKING FLUTICASONE PROPIONATE 50 MCG/ACT SUSPENSION 1 SPRAY IN EACH NOSTRIL NASALLY ONCE A DAY TAKING MOVANTIK 25 MG TABLET 1 TABLET IN THE MORNING ORALLY ONCE A DAY TAKING PERCOCET 5-325 MG TABLET 1-2 TABLETS ORALLY EVERY 6 HRS PRN PAIN MDD=6 TAKING LATUDA 60 MG TABLET 1 TABLET WITH FOOD ORALLY BEFORE BEDTIME NOT-TAKING ZYPREXA 20 MG TABLET 1 TABLET ORALLY ONCE A DAY NOT-TAKING ALBUTEROL SULFATE HFA 108 (90 BASE) MCG/ACT AEROSOL SOLUTION 1-2 PUFFS NEEDED INHALATION EVERY 4 HRS PRN NOT-TAKING SENNA S 8.6-50 MG TABLET 2 TABLET IN THE EVENING NEEDED ORALLY ONCE A DAY NOT-TAKING COLACE 100 MG CAPSULE 1 CAPSULE NEEDED ORALLY ONCE A DAY NOT-TAKING DULCOLAX 5 MG TABLET DELAYED RELEASE 1 TABLET NEEDED ORALLY TWICE DAILY (DR LARSEN) NOT-TAKING BACLOFEN 10 MG TABLET 1 TABLET WITH FOOD OR MILK ORALLY THREE TIMES A DAY NOT-TAKING FENTANYL 12 MCG/HR PATCH 72 HOUR 1 PATCH TO SKIN TRANSDERMAL APPLY 1 PATCH Q 72 HOURS MDD=1 CHRONIC PAIN NOT-TAKING ALBUTEROL SULFATE (2.5 MG/3ML) 0.083% NEBULIZATION SOLUTION 1 VIAL INHALATION EVERY 6 HRS PRN MEDICATION LIST REVIEWED AND RECONCILED WITH THE PATIENT PAST MEDICAL HISTORY HYPERLIPIDEMIA (RESOLVED WITH GASTRIC BYPASS) MENOPAUSE CHRONIC NECK/MID/LOW BACK PAIN PEPTIC ULCER DISEASE, S/P GASTRIC BYPASS BIPOLAR, ANXIETY, DEPRESSION ALCOHOLISM MIGRAINE HEADACHES TOBACCO USE ADD CHRONIC RHINITIS/SINUSITIS RAYNAUD'S SYNDROME COMMON VARIABLE AUTOIMMUNE DEFICIENCY DISEASE ASTHMA ALLERGIES MORPHINE: HIVES: ALLERGY LATEX: HIVES: ALLERGY DILAUDID: HIVES: ALLERGY REGLAN: HIVES: ALLERGY LAMICTAL: HIVES: ALLERGY DEPAKOTE: CONFUSION: CONTRAINDICATION RISPERDAL: SUICIDAL IDEATION: ALLERGY KETOROLAC TROMETHAMINE: ANAPHYLAXIS: ALLERGY GASTROGRAFIN: HIVES: ALLERGY MUSCLE RELAXERS: ALTERED MENTAL STATUS: SIDE EFFECTS SURGICAL HISTORY LUMBAR LAMINECTOMY [place] 02/11 BACK SURGERY 1997 LAPAROTOMY X 4...REDD....DR. CRISTOBAL CHOLECYSTECTOMY 07/13 [facility] W/ AGUDELO, APPENDECTOMY 12/13 GASTRIC BYPASS (DR. CARTAGENA, [facility]) 01/2012 LAPAROSCOPY AND REMOVAL OF ADHESIONS (DR. BARRERA) 12/2012 CHEST TUBE ENDOSCOPY/COLONOSCOPY BLOOD TRANSFUSION BLADDER REPAIR 10/2016 FAMILY HISTORY NO FAMILY HISTORY DOCUMENTED. SOCIAL HISTORY GENERAL: TOBACCO USE ARE YOU A:CURRENT SMOKER HOW MANY CIGARETTES A DAY DO YOU SMOKE?6-10 HOW SOON AFTER YOU WAKE UP DO YOU SMOKE YOUR FIRST CIGARETTE?AFTER 60 MIN HOW OFTEN DO YOU SMOKE CIGARETTES?EVERY DAY PATIENT COUNSELED ON THE DANGERS OF TOBACCO USE AND URGED TO QUIT:03/13/2017 ARE YOU INTERESTED IN QUITTING?THINKING ABOUT QUITTING PREVIOUS QUIT ATTEMPTS?YES, WITHIN THE LAST 6 MONTHS. HAD QUIT FOR 4 MONTHS AND JUST STARTED SMOKING AGAIN APPROX. 2 MONTHS AGO. COUNSELED THE PATIENT ON SMOKING CESSATION, EDUCATION [id number]/08/2017 LUNG CANCER SCREENING SMOKING STATUS:CURRENT SMOKER BMI CARE GOAL FOLLOW-UP ABOVE NORMAL BMI FOLLOW-UPDIETARY MANAGEMENT EDUCATION, GUIDANCE, AND COUNSELING, DIETARY NEEDS EDUCATION, EXERCISE PROMOTION: STRENGTH TRAINING ALCOHOL SCREENING DID YOU HAVE A DRINK CONTAINING ALCOHOL IN THE PAST YEAR?NO POINTS0 INTERPRETATIONNEGATIVE CAFFEINE CAFFEINE USE?YES 2-3 CUPS COFFEE & ICED TEA THROUGH THE DAY. LEARNING BARRIERS / SPECIAL NEEDS CHANGE FROM LAST VISIT?NO BARRIERS TO LEARNING?NO HEARING IMPAIRED?NO VISION IMPAIRED?NO COGNITIVELY IMPAIRED?NO READINESS TO LEARN?YES LEARNING PREFERENCES?NO LEARNING CAPABILITIES PRESENT?YES EMOTIONAL BARRIERS?NO SPECIAL DEVICES?NO SURGICAL CORSETIER NEEDED?NO PAIN CLINIC PFS, CLERGY, PUBLIC HEALTH REFERRALS WAS THE PROVIDER NOTIFIED OF ANY PERTINENT INFO?YES PATIENT: ____. HOSPITALIZATION/MAJOR DIAGNOSTIC PROCEDURE SURGERY RELATED [facility] ([facility]) 05/2012 ADMITTED TO [facility] 12/2015 [facility] 10/2015 REVIEW OF SYSTEMS CONSTITUTIONAL: ANY CHANGE IN YOUR MEDICAL CONDITION? NO . CHILLS NO . FEVER NO . INFECTION: DO YOU HAVE NEW INFECTIONS? NO . DO YOU HAVE HISTORY OF MRSA? YES, 10/2016 LOWER ABD. INCISION . MUSCULOSKELETAL: ANY NEW PATTERNS OF PAIN OR NUMBNESS? NO . GASTROENTEROLOGY: ANY NEW CHANGE IN BOWEL CONTROL? NO . GENITOURINARY: ANY NEW CHANGE IN BLADDER CONTROL? NO . IS THERE A CHANCE YOU COULD BE ? NO . HEMATOLOGY/LYMPH: DO YOU TAKE ANY BLOOD THINNERS? (FOR EXAMPLE- COUMADIN, PLAVIX, AGGRENOX, PLATEL, PRADAXA, OR XARELTO) NO . WHEN WAS YOUR LAST DOSE? DATE: TIME: . NEUROLOGY: HAVE YOU FALLEN IN THE PAST 6 MONTHS? NO . ANY NEW EXTREMITY NUMBNESS OR WEAKNESS? NO . CARDIOLOGY: DO YOU HAVE A PACEMAKER OR DEFIBRILLATOR? NO . RESPIRATORY: HAVE YOU BEEN SICK IN THE PAST WEEK? NO . FEVER NO . FLU LIKE SYMPTOMS? NO . COUGH NO . INTEGUMENTARY: DO YOU HAVE ANY RASHES OR OPEN SORES? YES, 1 WEEK AGO SHE HIT THE TOP OF HEAD ON THE EDGE OF A COUNTER TOP. AREA IS RAISED APPROX. THE SIZE OF A LARGE GRAPE AND IS RED. PT STATES HER VISION HAS BEEN OFF AND THAT IS WHY SHE HIT HER HEAD. SHE HIT THE AREA AGAIN TODAY ON EDGE OF CAR DOOR FRAME. SHE WAS ENCOURAGED TO SEE PCP REGARDING THIS. . ALLERGIC/IMMUNO: ARE YOU ALLERGIC TO SHELLFISH OR IV DYE? NO . ANY NEW ALLERGIES? NO . PSYCHIATRIC: DO YOU HAVE THOUGHTS OF HURTING YOURSELF OR SOMEONE ELSE? NO . ARE YOU ABUSED, NEGLECTED, OR IN AN UNSAFE ENVIRONMENT? NO . ENDOCRINOLOGY: ARE YOU DIABETIC? NO . OTHER: DO YOU NEED ANY PRESCRIPTIONS? YES . IF YES, PLEASE LIST: LYRICA, FLEXERIL, PERCOCET . ANY NEW PROBLEMS WITH YOUR MEDICATIONS? NO . WHEN DID YOU LAST EAT? ____ . WHEN DID YOU LAST DRINK? ____ . WHAT DID YOU LAST DRINK? ____ . NAME OF PERSON DRIVING YOU HOME? ____ . DO YOU HAVE ANY OTHER QUESTIONS OR CONCERNS YES,INSURANCE HAS DENIED THE COVERAGE OF FENTANYL PATCH . REVIEWED BY: PROVIDER: HARRISON ZEPEDA MD . VITAL SIGNS WT 187.6 LBS, HT 67 IN, BMI 29.38 INDEX, BP 126/81 MM HG, HR 108 /MIN, RR 18 /MIN, TEMP 98.3 F, OXYGEN SAT % 98%, NA INITIALS SC 16:01, REVIEWED BY: AD. EXAMINATION : PATIENT IS ALERT O X 3 AND COOPERATIVE. THERE IS TENDERNESS IN THE SACROILIAC JOINTS. ASSESSMENTS LUMBAR POST-LAMINECTOMY SYNDROME - M96.1 (PRIMARY) SACROILIITIS, NOT ELSEWHERE CLASSIFIED - M46.1 TREATMENT LUMBAR POST-LAMINECTOMY SYNDROME REFILL LYRICA CAPSULE, 225 MG, 1 CAPSULE, ORALLY, Q 8 HRS MDD=3, 30 DAY(S), 90, REFILLS 0 START FENTANYL PATCH 72 HOUR, 25 MCG/HR, 1 PATCH TO SKIN, TRANSDERMAL, Q 3 DAYS FOR PAIN, 30 DAY(S), 10, REFILLS 0 NOTES: WE DISCUSSED SEVERAL ISSUES WITH MS. ALMONTE'S PAIN MANAGEMENT CASE. AT THIS TIME THE PATIENT WILL CONTINUE ON THE SAME MEDICATION REGIMEN BEFORE. I ADVISED THE PATIENT TO FOLLOW UP WITH DR. COKER REGARDING ABOUT THE LESIONS ON HER HEAD. AFTER EXAMINING THE PATIENT SHE IS A GOOD CANDIDATE FOR BILATERAL SIJ INJECTION, WE DISCUSSED THE RISK, BENEFITS, AND ALTERNATIVES AND THE PATIENT WOULD LIKE TO PROCEED. PATIENT WILL BE BOOKED PENDING APPROVAL. PATIENT WILL FOLLOW UP WITH ME IN 3 WEEKS. INSTRUCTIONS WERE GIVEN, QUESTIONS WERE ANSWERED, PATIENT REPORTS UNDERSTANDING AND AGREES WITH THE PLAN. I, KEKE FONTAINE, DOCUMENTED THE ABOVE INFORMATION ACTING A SCRIBE FOR DR. ZEPEDA. I HAVE REVIEWED THE ABOVE DOCUMENT, WRITTEN BY KEKE FONTAINE SCRIBE AND I VERIFY THAT IT IS ACCURATE. OTHERS REFILL PERCOCET TABLET, 5-325 MG, 1-2 TABLETS, ORALLY, EVERY 6 HRS PRN PAIN MDD=6, 30 DAY(S), 180, REFILLS 0 REFILL CYCLOBENZAPRINE HCL TABLET, 10 MG, 1 TABLET NEEDED, ORALLY, Q 6 HRS NEEDED FOR SPASMS AND PAIN MDD3, 30 DAY(S), 80, REFILLS 1 PROCEDURE CODES FA211 ESTABILISHED PATIENT [facility] FACILITY CHARGE G8730 PAIN ASSESS POS TOOL F/U PLAN DOC G8427 DOC MEDS VERIFIED W/PT OR RE DISPOSITION & COMMUNICATION FOLLOW UP 3 WEEKS ELECTRONICALLY SIGNED BY HARRISON ZEPEDA MD ON 03/24/2017 AT 03:29 PM EDT DISCLAIMER : THIS IS A VISIT SUMMARY EXTRACTED FROM THE [employer] CHART. IT IS NOT A COPY OF THE [employer] PROGRESS NOTE. MTDD
== END ==
LOC: M PAIN 15:40
PROVIDERS: ATTEND Anesthesiology
DX: M96.1 Postlaminectomy syndrome, not elsewhere classified (principal); M46.1 Sacroiliitis, not elsewhere classified; F31.9 Bipolar disorder, unspecified; F41.9 Anxiety disorder, unspecified; F10.21 Alcohol dependence, in remission; G43.909 Migraine, unspecified, not intractable, without status migrainosus; I73.00 Raynaud's syndrome without gangrene; F17.210 Nicotine dependence, cigarettes, uncomplicated; D50.9 Iron deficiency anemia, unspecified; I87.2 Venous insufficiency (chronic) (peripheral); D83.9 Common variable immunodeficiency, unspecified; J45.909 Unspecified asthma, uncomplicated; Z91.040 Latex allergy status; Z88.5 Allergy status to narcotic agent; Z88.8 Allergy status to other drugs, medicaments and biological substances; Z79.891 Long term (current) use of opiate analgesic; Z79.899 Other long term (current) drug therapy

== ENCOUNTER → 2017-03-18 | Outpatient (REF) | payer OTHER ==
[~2017-03-18] MED LIST changes: +ANTA500T PO; +BUSP30TA PO; +CYCL10TA PO; +DIFL150T PO; +DOXY100C37 PO; +LATU1TAB PO; +LYRI225C PO
== END ==
LOC: M SFHCPLAZ 14:56
PROVIDERS: ATTEND Internal Medicine Infectious Disease
DX: L02.91 Cutaneous abscess, unspecified (principal)

== ENCOUNTER 2017-04-01 10:00 | Outpatient (RCR) | payer MEDICAID ==
[~2017-04-01 10:00] MED LIST changes: -AUGM875T27 PO; +AUGM875T28 PO; -BACL-67 PO; +BACL1TAB9 PO; +LUNE3TAB36 PO; -LUNE3TAB48 PO; -OXYC1SOL PO; +OXYC1SOL3 PO; +PERC5TAB12 PO; -PERC5TAB6 PO; +PYRI1TAB5 PO; -PYRI200T5 PO
== END 2017-04-04 ==
LOC: M OUTALCOH 10:00
PROVIDERS: ATTEND Psychiatry & Neurology Psychiatry
DX: F10.20 Alcohol dependence, uncomplicated (principal); F13.20 Sedative, hypnotic or anxiolytic dependence, uncomplicated; F17.200 Nicotine dependence, unspecified, uncomplicated

== ENCOUNTER → 2017-04-11 | Outpatient (REF) | payer MEDICAID ==
[2017-04-11 12:10] LABS: BASO % 0.5 % (0.0-1.0); EOS % 0.8 % (0.0-3.0); LYMPH # 1.9 K/mm3 (1.5-4.5); LYMPH % 35.5 % (24.0-44.0); MEAN CORPUSCULAR HEMOGLOBIN 28.8 pg (27.0-33.0); MEAN CORPUSCULAR HGB CONC 32.3 g/dl (32.0-36.5); MEAN CORPUSCULAR VOLUME 89.3 fl (80.0-96.0); MONO # 0.3 K/mm3 (0.0-0.8); MONO % 4.9 % (0.0-5.0); RED CELL DISTRIBUTION WIDTH 19.1 % (11.5-14.5); WHITE BLOOD COUNT 5.2 K/mm3 (4.0-10.0)
[2017-04-11 12:27] LABS: ALBUMIN 3.7 GM/DL (3.2-5.2); ALBUMIN/GLOBULIN RATIO 1.09 (1.00-1.93); ALKALINE PHOSPHATASE 141 U/L (45-117); ALT/SGPT 57 U/L (12-78); ANION GAP 4 MEQ/L (8-16); AST/SGOT 57 U/L (15-37); BILIRUBIN,TOTAL 0.2 MG/DL (0.2-1.0); BLOOD UREA NITROGEN 13 MG/DL (7-18); CALCIUM LEVEL 9.2 MG/DL (8.5-10.1); CARBON DIOXIDE LEVEL 29 MEQ/L (21-32); CHLORIDE LEVEL 105 MEQ/L (98-107); CREATININE FOR GFR 0.72 MG/DL (0.55-1.02); GLOMERULAR FILTRATION RATE > 60.0 (>60); GLUCOSE, FASTING 83 MG/DL (70-105); IMMUNOGLOBULIN G 1010 MG/DL (681-1648); POTASSIUM SERUM 4.6 MEQ/L (3.5-5.1); SODIUM LEVEL 138 MEQ/L (136-145); TOTAL PROTEIN 7.1 GM/DL (6.4-8.2)
== END ==
LOC: M LABDRAW1 10:55
PROVIDERS: ATTEND Allergy & Immunology Allergy
DX: D83.9 Common variable immunodeficiency, unspecified (principal)

== ENCOUNTER → 2017-04-11 | Outpatient (REF) | payer MEDICAID ==
[2017-04-11 12:26] LABS: FOLATE 22.6 NG/ML (>5.4); VITAMIN B12 LEVEL 329 PG/ML (247-911)
[2017-04-11 12:37] LABS: TOTAL PROTEIN 7.3 GM/DL (6.4-8.2)
[2017-04-14 13:40] LABS: ALBUMIN 4.26 GM/DL (3.29-5.55); ALBUMIN % 58.4 % (55.8-66.1); GAMMA GLOBULIN % 13.5 % (11.1-18.8)
== END ==
LOC: M LABDRAW1 10:58
PROVIDERS: ATTEND Psychiatry & Neurology Neurology
DX: G62.9 Polyneuropathy, unspecified (principal); E11.9 Type 2 diabetes mellitus without complications

== ENCOUNTER → 2017-04-16 | Outpatient (REF) ==
--- NOTE | 2017-04-17 01:53 | REP ---
Clinical: Pain and disability. Technique: AP, lateral, open mouth views of the cervical spine. Findings: Alignment and lordosis maintained. No acute fracture / compression injury or subluxation. Open mouth view demonstrates normal C1-C2 articulation and odontoid process. No significant overt degenerative changes are appreciated although subtle disc space narrowing at the C5-6 level cannot be excluded. Impression: Essentially normal, age-appropriate examination. However, subtle disc space narrowing at the C5-6 level cannot be excluded. Signed by Pritesh Castellanos MD 04/17/2017 01:44 A
== END ==
LOC: M SMT 10:35
PROVIDERS: ATTEND Internal Medicine
DX: M54.5 Low back pain (principal)

== ENCOUNTER → 2017-04-24 | Outpatient (REF) | payer OTHER | LOC: M SFHCPLAZ 15:49 | PROVIDERS: ATTEND Internal Medicine Infectious Disease | DX: Z22.322 Carrier or suspected carrier of Methicillin resistant Staphylococcus aureus (principal) ==

== ENCOUNTER → 2017-04-24 | Outpatient (CLI) | payer OTHER ==
--- NOTE | 2017-05-06 01:02 | ECWPNPC ---
PATIENT NAME: ADELA ALMONTE : 1980 GENDER: FEMALE VISIT DATE: 04/24/2017 DISCHARGE DATE: 04/24/17 1714 VISIT LOCKED DATE TIME: PHYSICIAN: HARRISON ZEPEDA RESOURCE: HARRISON ZEPEDA REASON FOR APPOINTMENT 1. BACK PAIN HISTORY OF PRESENT ILLNESS HISTORY OF PRESENT ILLNESS: PAIN THE PATIENT DESCRIBES THE PAIN... 37 YEAR OLD FEMALE PATIENT WITH HISTORY OF CHRONIC BACK PAIN. PATIENT DESCRIBES THE PAIN ACHING, BURNING, SHARP, STABBING, TENDER, THROBBING, SORE, SHOOTING AND HAVING IT ALL THE TIME WITH A PAIN SCORE OF 7/10. PATIENT HAS A HISTORY OF TWO BACK SURGERIES ONE IN 1997 AND ONE IN 2008. PATIENT REPORTS UNABLE TO USE IBUPROFEN DUE TO GASTRIC BYPASS. PATIENT TRIED GABAPENTIN FOR SEVERAL MONTHS WITH NO RELIEF, LYRICA AIDS WITH THE TINGLY IN HER FEET BUT DOES NOT AID IN PAIN RELIEF FOR THE BACK, AND ELAVIL DID NOT AID THE PATIENT WITH PAIN RELIEF. AT THIS TIME THE PATIENT IS USING CYCLOBENZAPRINE, LYRICA AND PERCOCET AND STATES THAT SHE STILL HAS SEVERE PAIN WITH THE MEDICATION. PATIENT DENIES UNEXPLAINABLE WEIGHT LOSS, FEVER, CHILLS, NEW CHANGES ON HER URINARY OR BOWEL CONTROL. FALL RISK SCREENING: SCREENING :NO FALLS IN THE PAST YEAR CURRENT MEDICATIONS TAKING AMERGE 1 MG TABLET 1 TAB(S) ORALLY DAILY NEEDED TAKING IMITREX 4 MG/0.5ML SOLUTION 1 INJECTION NEEDED AT THE ONSET OF A MIGRAINE SUBCUTANEOUS REPEAT TIMES ONE IF NOT EFFECTIVE (DR JC) TAKING GAMMAGARD 10 % SOLUTION INTRAVENOUS EVERY 4 WEEKS TAKING BUSPIRONE HCL 30 MG TABLET 1 TABLET ORALLY TWICE A DAY TAKING VYVANSE 70 MG CAPSULE 1 CAPSULE IN THE MORNING ORALLY ONCE A DAY TAKING ANTABUSE 500 MG TABLET 1 TABLET ORALLY ONCE A DAY TAKING LATUDA 60 MG TABLET 1 TABLET WITH FOOD ORALLY BEFORE BEDTIME TAKING CYCLOBENZAPRINE HCL 10 MG TABLET 1 TABLET NEEDED ORALLY Q 6 HRS NEEDED FOR SPASMS AND PAIN MDD3 TAKING HIBICLENS 4 % LIQUID DIRECTED EXTERNALLY DAILY TAKING MUPIROCIN CALCIUM 2 % CREAM 1 APPLICATION TO AFFECTED AREA EXTERNALLY NOSE GROIN AXILLA HEAD BID 1 WEEK TAKING PHENERGAN 25 MG TABLET 1 TABLET ORALLY EVERY 6 HRS PRN NAUSEA TAKING NIFEDIPINE 20 MG CAPSULE 1 CAPSULE ORALLY DAILY TAKING ACETAMINOPHEN 500 MG CAPSULE 1 CAPSULES NEEDED ORALLY EVERY 6 HRS PRN TAKING LYRICA 225 MG CAPSULE 1 CAPSULE ORALLY Q 8 HRS MDD=3 TAKING PERCOCET 5-325 MG TABLET 1-2 TABLETS ORALLY EVERY 6 HRS PRN PAIN MDD=6 NOT-TAKING PHENERGAN 25 MG TABLET 1 TAB ORALLY QID NOT-TAKING PROTONIX 40 MG TABLET DELAYED RELEASE 1 TABLET ORALLY ONCE A DAY NOT-TAKING FLUTICASONE PROPIONATE 50 MCG/ACT SUSPENSION 1 SPRAY IN EACH NOSTRIL NASALLY ONCE A DAY NOT-TAKING MOVANTIK 25 MG TABLET 1 TABLET IN THE MORNING ORALLY ONCE A DAY NOT-TAKING KEFLEX 500 MG CAPSULE 1 CAPSULE ORALLY EVERY 12 HRS NOT-TAKING ZYPREXA 20 MG TABLET 1 TABLET ORALLY ONCE A DAY NOT-TAKING ALBUTEROL SULFATE HFA 108 (90 BASE) MCG/ACT AEROSOL SOLUTION 1-2 PUFFS NEEDED INHALATION EVERY 4 HRS PRN NOT-TAKING SENNA S 8.6-50 MG TABLET 2 TABLET IN THE EVENING NEEDED ORALLY ONCE A DAY NOT-TAKING COLACE 100 MG CAPSULE 1 CAPSULE NEEDED ORALLY ONCE A DAY NOT-TAKING DULCOLAX 5 MG TABLET DELAYED RELEASE 1 TABLET NEEDED ORALLY TWICE DAILY (DR LARSEN) NOT-TAKING BACLOFEN 10 MG TABLET 1 TABLET WITH FOOD OR MILK ORALLY THREE TIMES A DAY NOT-TAKING FENTANYL 12 MCG/HR PATCH 72 HOUR 1 PATCH TO SKIN TRANSDERMAL APPLY 1 PATCH Q 72 HOURS MDD=1 CHRONIC PAIN NOT-TAKING ALBUTEROL SULFATE (2.5 MG/3ML) 0.083% NEBULIZATION SOLUTION 1 VIAL INHALATION EVERY 6 HRS PRN PAST MEDICAL HISTORY HYPERLIPIDEMIA (RESOLVED WITH GASTRIC BYPASS) MENOPAUSE CHRONIC NECK/MID/LOW BACK PAIN PEPTIC ULCER DISEASE, S/P GASTRIC BYPASS BIPOLAR, ANXIETY, DEPRESSION ALCOHOLISM MIGRAINE HEADACHES TOBACCO USE ADD CHRONIC RHINITIS/SINUSITIS RAYNAUD'S SYNDROME COMMON VARIABLE AUTOIMMUNE DEFICIENCY DISEASE ASTHMA ALLERGIES MORPHINE: HIVES: ALLERGY LATEX: HIVES: ALLERGY DILAUDID: HIVES: ALLERGY REGLAN: HIVES: ALLERGY LAMICTAL: HIVES: ALLERGY DEPAKOTE: CONFUSION: CONTRAINDICATION RISPERDAL: SUICIDAL IDEATION: ALLERGY KETOROLAC TROMETHAMINE: ANAPHYLAXIS: ALLERGY GASTROGRAFIN: HIVES: ALLERGY MUSCLE RELAXERS: ALTERED MENTAL STATUS: SIDE EFFECTS REVIEW OF SYSTEMS REVIEWED BY: PROVIDER: . CONSTITUTIONAL: ANY CHANGE IN YOUR MEDICAL CONDITION? NO . CHILLS NO . FEVER NO . INFECTION: DO YOU HAVE NEW INFECTIONS? NO . DO YOU HAVE HISTORY OF MRSA? NO . MUSCULOSKELETAL: ANY NEW PATTERNS OF PAIN OR NUMBNESS? NO . GASTROENTEROLOGY: ANY NEW CHANGE IN BOWEL CONTROL? NO . GENITOURINARY: ANY NEW CHANGE IN BLADDER CONTROL? NO . IS THERE A CHANCE YOU COULD BE ? NO . HEMATOLOGY/LYMPH: DO YOU TAKE ANY BLOOD THINNERS? (FOR EXAMPLE- COUMADIN, PLAVIX, AGGRENOX, PLATEL, PRADAXA, OR XARELTO) NO . WHEN WAS YOUR LAST DOSE? DATE: TIME: . NEUROLOGY: HAVE YOU FALLEN IN THE PAST 6 MONTHS? NO . ANY NEW EXTREMITY NUMBNESS OR WEAKNESS? NO . CARDIOLOGY: DO YOU HAVE A PACEMAKER OR DEFIBRILLATOR? NO . RESPIRATORY: HAVE YOU BEEN SICK IN THE PAST WEEK? NO . FEVER NO . FLU LIKE SYMPTOMS? NO . COUGH NO . INTEGUMENTARY: DO YOU HAVE ANY RASHES OR OPEN SORES? NO . ALLERGIC/IMMUNO: ARE YOU ALLERGIC TO SHELLFISH OR IV DYE? NO . ANY NEW ALLERGIES? NO . PSYCHIATRIC: DO YOU HAVE THOUGHTS OF HURTING YOURSELF OR SOMEONE ELSE? NO . ARE YOU ABUSED, NEGLECTED, OR IN AN UNSAFE ENVIRONMENT? NO . ENDOCRINOLOGY: ARE YOU DIABETIC? NO . OTHER: DO YOU NEED ANY PRESCRIPTIONS? YES . IF YES, PLEASE LIST: LYRICA, PERCOCET . ANY NEW PROBLEMS WITH YOUR MEDICATIONS? NO . WHEN DID YOU LAST EAT? ____ . WHEN DID YOU LAST DRINK? ____ . WHAT DID YOU LAST DRINK? ____ . NAME OF PERSON DRIVING YOU HOME? ____ . DO YOU HAVE ANY OTHER QUESTIONS OR CONCERNS NO . VITAL SIGNS WT 194 LBS, HT 67 IN, BMI 30.38 INDEX, BP 135/90 MM HG, HR 107 /MIN, RR 18 /MIN, TEMP 98.0 F, OXYGEN SAT % 98%, NA INITIALS SC 15:37, REVIEWED BY: NL. EXAMINATION : PATIENT IS ALERT O X 3 AND COOPERATIVE. TENDERNESS IN LOWER BACK AND PARASPINAL MUSCLE GROUP. LIMPING FROM THE RIGHT LEG. RIGHT LEG WEAKER THEN THE LEFT AT EXTENSION AND FLEXION. MRI DONE ON 09/04/16 OF THE LUMBAR SPINE SHOWS POSTOPERATIVE CHANGES AND NEURAL FORAMINAL NARROWING AT L4-L5. 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 ALMONTE'S PAIN MANAGEMENT CASE. AT THIS TIME THE PATIENT WILL CONTINUE USING LYRICA FOR THE NEUROPATHIC PAIN AND PERCOCET FOR THE SOMATIC PAIN. I WOULD LIKE THE PATIENT TO START THE BUTRAN'S PATCH SHE HAS TRIED GABAPENTIN AND ELAVIL FOR SEVERAL MONTHS AND HAS NOT HAD RELIEF FROM THE BACK PAIN. PATIENT DENIES ABUSE OF ANY MEDICATION, DENIES USE OF ILLEGAL SUBSTANCES, AND STATES SHE IS ONLY USING THE INJECTION FOR PAIN MANAGEMENT. URINE TOXICOLOGY REPORT DONE ON 11/18/2016 IS CONSISTENT WITH THE PATIENT S MEDICATION LIST. AT THIS TIME WE ARE WAITING ON A CLEARANCE FOR INJECTIONS FROM DR. COKER WHICH THE PATIENT HAS NOT YET RECEIVED. HOWEVER, PATIENT IS A GOOD CANDIDATE FOR A LUMBAR EPIDURAL OR A SACROILIAC JOINT INJECTION. WE BRIEFLY DISCUSSED A DCS AT THIS TIME, PATIENT RECEIVED INFORMATION ON THE DEVICE. I WOULD ALSO LIKE THE PATIENT TO BRING THE OR REPORT FROM THE MOST RECENT SURGERY DONE IN [place]. MRS. ALMONTE WILL RETURN TO THE CLINIC IN 3 WEEKS. INSTRUCTIONS WERE GIVEN, QUESTIONS WERE ANSWERED, PATIENT REPORTS UNDERSTANDING AND AGREES WITH THE PLAN. I, MACHELLE PRAJAPATI, DOCUMENTED THE ABOVE INFORMATION ACTING A SCRIBE FOR DR. ZEPEDA. I HAVE REVIEWED THE ABOVE DOCUMENT, WRITTEN BY MACHELLE NUÑEZ AND I VERIFY THAT IT IS ACCURATE. OTHERS START BUTRANS PATCH WEEKLY, 10 MCG/HR, 1 PATCH TO SKIN, TRANSDERMAL, WEEKLY, 30 DAY(S), 4, REFILLS 0 REFILL PERCOCET TABLET, 5-325 MG, 1-2 TABLETS, ORALLY, EVERY 6 HRS PRN PAIN MDD=6, 30 DAY(S), 180, REFILLS 0 PROCEDURE CODES FA211 ESTABILISHED PATIENT [facility] FACILITY CHARGE G8427 DOC MEDS VERIFIED W/PT OR RE M6086 PAIN ASSESS POS TOOL F/U PLAN DOC DISPOSITION & COMMUNICATION FOLLOW UP 3 WEEKS ELECTRONICALLY SIGNED BY HARRISON ZEPEDA MD ON 05/05/2017 AT 11:43 AM EDT DISCLAIMER : THIS IS A VISIT SUMMARY EXTRACTED FROM THE [employer] CHART. IT IS NOT A COPY OF THE [employer] PROGRESS NOTE. GELACIO
== END ==
LOC: M PAIN 15:20
PROVIDERS: ATTEND Anesthesiology
DX: M96.1 Postlaminectomy syndrome, not elsewhere classified (principal); M46.1 Sacroiliitis, not elsewhere classified; M47.816 Spondylosis without myelopathy or radiculopathy, lumbar region; M47.817 Spondylosis without myelopathy or radiculopathy, lumbosacral region; E78.5 Hyperlipidemia, unspecified; F31.9 Bipolar disorder, unspecified; F41.9 Anxiety disorder, unspecified; F10.21 Alcohol dependence, in remission; G43.909 Migraine, unspecified, not intractable, without status migrainosus; Z72.0 Tobacco use; D83.9 Common variable immunodeficiency, unspecified; J45.909 Unspecified asthma, uncomplicated; I73.00 Raynaud's syndrome without gangrene; D50.9 Iron deficiency anemia, unspecified; I87.2 Venous insufficiency (chronic) (peripheral); Z22.322 Carrier or suspected carrier of Methicillin resistant Staphylococcus aureus; Z88.5 Allergy status to narcotic agent; Z91.040 Latex allergy status; Z88.8 Allergy status to other drugs, medicaments and biological substances; Z79.891 Long term (current) use of opiate analgesic; Z79.899 Other long term (current) drug therapy

== ENCOUNTER → 2017-05-05 | Outpatient (RCR) | payer MEDICAID | LOC: M OUTALCOH 04-07 09:40 | PROVIDERS: ATTEND Psychiatry & Neurology Psychiatry | DX: F10.20 Alcohol dependence, uncomplicated (principal); F13.20 Sedative, hypnotic or anxiolytic dependence, uncomplicated; F17.200 Nicotine dependence, unspecified, uncomplicated ==

== ENCOUNTER → 2017-05-16 | Outpatient (CLI) | payer OTHER ==
--- NOTE | 2017-06-03 01:51 | ECWPNPC ---
PATIENT NAME: ADELA ALMONTE : 1980 GENDER: FEMALE VISIT DATE: 05/16/2017 DISCHARGE DATE: 05/16/17 1330 VISIT LOCKED DATE TIME: PHYSICIAN: HARRISON ZEPEDA RESOURCE: HARRISON ZEPEDA REASON FOR APPOINTMENT 1. LOW BACK PAIN HISTORY OF PRESENT ILLNESS HISTORY OF PRESENT ILLNESS: PAIN THE PATIENT DESCRIBES THE PAIN... 37 YEAR OLD FEMALE PATIENT WITH HISTORY OF CHRONIC BACK PAIN. PATIENT DESCRIBES THE PAIN ACHING, BURNING, SHARP, STABBING, TENDER, THROBBING, SORE, SHOOTING AND HAVING IT ALL THE TIME WITH A PAIN SCORE OF 7/10. PATIENT HAS A HISTORY OF TWO BACK SURGERIES ONE IN 1997 AND ONE IN 2008. PATIENT REPORTS UNABLE TO USE IBUPROFEN DUE TO GASTRIC BYPASS. PATIENT TRIED GABAPENTIN FOR SEVERAL MONTHS WITH NO RELIEF, LYRICA AIDS WITH THE TINGLY IN HER FEET BUT DOES NOT AID IN PAIN RELIEF FOR THE BACK, AND ELAVIL DID NOT AID THE PATIENT WITH PAIN RELIEF. AT THIS TIME THE PATIENT IS USING CYCLOBENZAPRINE, LYRICA AND PERCOCET AND STATES THAT SHE STILL HAS SEVERE PAIN WITH THE MEDICATION. PATIENT DENIES UNEXPLAINABLE WEIGHT LOSS, FEVER, CHILLS, NEW CHANGES ON HER URINARY OR BOWEL CONTROL. FALL RISK SCREENING: SCREENING :NO FALLS IN THE PAST YEAR CURRENT MEDICATIONS TAKING AMERGE 1 MG TABLET 1 TAB(S) ORALLY DAILY NEEDED TAKING IMITREX 4 MG/0.5ML SOLUTION 1 INJECTION NEEDED AT THE ONSET OF A MIGRAINE SUBCUTANEOUS REPEAT TIMES ONE IF NOT EFFECTIVE (DR JC) TAKING GAMMAGARD 10 % SOLUTION INTRAVENOUS EVERY 4 WEEKS TAKING BUSPIRONE HCL 30 MG TABLET 1 TABLET ORALLY TWICE A DAY TAKING VYVANSE 70 MG CAPSULE 1 CAPSULE IN THE MORNING ORALLY ONCE A DAY TAKING ANTABUSE 500 MG TABLET 1 TABLET ORALLY ONCE A DAY TAKING CYCLOBENZAPRINE HCL 10 MG TABLET 1 TABLET NEEDED ORALLY Q 6 HRS NEEDED FOR SPASMS AND PAIN MDD3 TAKING MUPIROCIN CALCIUM 2 % CREAM 1 APPLICATION TO AFFECTED AREA EXTERNALLY NOSE GROIN AXILLA HEAD BID 1 WEEK TAKING PHENERGAN 25 MG TABLET 1 TABLET ORALLY EVERY 6 HRS PRN NAUSEA TAKING NIFEDIPINE 20 MG CAPSULE 1 CAPSULE ORALLY DAILY TAKING ACETAMINOPHEN 500 MG CAPSULE 1 CAPSULES NEEDED ORALLY EVERY 6 HRS PRN TAKING LYRICA 225 MG CAPSULE 1 CAPSULE ORALLY Q 8 HRS MDD=3 TAKING PERCOCET 5-325 MG TABLET 1-2 TABLETS ORALLY EVERY 6 HRS PRN PAIN MDD=6 TAKING ZOFRAN ODT 8 MG TABLET DISPERSIBLE 1 ORALLY BID PRN NOT-TAKING LATUDA 60 MG TABLET 1 TABLET WITH FOOD ORALLY BEFORE BEDTIME NOT-TAKING HIBICLENS 4 % LIQUID DIRECTED EXTERNALLY DAILY NOT-TAKING DOXYCYCLINE HYCLATE 100 MG TABLET 1 TABLET ORALLY EVERY 12 HRS NOT-TAKING FLUCONAZOLE 100 MG TABLET 1 TABLET ORALLY 2-WEEK X 4 WEEKS NOT-TAKING BUTRANS 10 MCG/HR PATCH WEEKLY 1 PATCH TO SKIN TRANSDERMAL WEEKLY NOT-TAKING PHENERGAN 25 MG TABLET 1 TAB ORALLY QID NOT-TAKING PROTONIX 40 MG TABLET DELAYED RELEASE 1 TABLET ORALLY ONCE A DAY NOT-TAKING FLUTICASONE PROPIONATE 50 MCG/ACT SUSPENSION 1 SPRAY IN EACH NOSTRIL NASALLY ONCE A DAY NOT-TAKING MOVANTIK 25 MG TABLET 1 TABLET IN THE MORNING ORALLY ONCE A DAY NOT-TAKING KEFLEX 500 MG CAPSULE 1 CAPSULE ORALLY EVERY 12 HRS NOT-TAKING ZYPREXA 20 MG TABLET 1 TABLET ORALLY ONCE A DAY NOT-TAKING ALBUTEROL SULFATE HFA 108 (90 BASE) MCG/ACT AEROSOL SOLUTION 1-2 PUFFS NEEDED INHALATION EVERY 4 HRS PRN NOT-TAKING SENNA S 8.6-50 MG TABLET 2 TABLET IN THE EVENING NEEDED ORALLY ONCE A DAY NOT-TAKING COLACE 100 MG CAPSULE 1 CAPSULE NEEDED ORALLY ONCE A DAY NOT-TAKING DULCOLAX 5 MG TABLET DELAYED RELEASE 1 TABLET NEEDED ORALLY TWICE DAILY (DR LARSEN) NOT-TAKING BACLOFEN 10 MG TABLET 1 TABLET WITH FOOD OR MILK ORALLY THREE TIMES A DAY NOT-TAKING FENTANYL 12 MCG/HR PATCH 72 HOUR 1 PATCH TO SKIN TRANSDERMAL APPLY 1 PATCH Q 72 HOURS MDD=1 CHRONIC PAIN NOT-TAKING ALBUTEROL SULFATE (2.5 MG/3ML) 0.083% NEBULIZATION SOLUTION 1 VIAL INHALATION EVERY 6 HRS PRN MEDICATION LIST REVIEWED AND RECONCILED WITH THE PATIENT PAST MEDICAL HISTORY HYPERLIPIDEMIA (RESOLVED WITH GASTRIC BYPASS) MENOPAUSE CHRONIC NECK/MID/LOW BACK PAIN PEPTIC ULCER DISEASE, S/P GASTRIC BYPASS BIPOLAR, ANXIETY, DEPRESSION ALCOHOLISM MIGRAINE HEADACHES TOBACCO USE ADD CHRONIC RHINITIS/SINUSITIS RAYNAUD'S SYNDROME COMMON VARIABLE AUTOIMMUNE DEFICIENCY DISEASE ASTHMA ALLERGIES MORPHINE: HIVES: ALLERGY LATEX: HIVES: ALLERGY DILAUDID: HIVES: ALLERGY REGLAN: HIVES: ALLERGY LAMICTAL: HIVES: ALLERGY DEPAKOTE: CONFUSION: CONTRAINDICATION RISPERDAL: SUICIDAL IDEATION: ALLERGY KETOROLAC TROMETHAMINE: ANAPHYLAXIS: ALLERGY GASTROGRAFIN: HIVES: ALLERGY MUSCLE RELAXERS: ALTERED MENTAL STATUS: SIDE EFFECTS REVIEW OF SYSTEMS REVIEWED BY: PROVIDER: HARRISON ZEPEDA MD . CONSTITUTIONAL: ANY CHANGE IN YOUR MEDICAL CONDITION? NO . CHILLS NO . FEVER NO . INFECTION: DO YOU HAVE NEW INFECTIONS? NO . DO YOU HAVE HISTORY OF MRSA? NO . MUSCULOSKELETAL: ANY NEW PATTERNS OF PAIN OR NUMBNESS? NO . GASTROENTEROLOGY: ANY NEW CHANGE IN BOWEL CONTROL? NO . GENITOURINARY: ANY NEW CHANGE IN BLADDER CONTROL? NO . IS THERE A CHANCE YOU COULD BE ? NO . HEMATOLOGY/LYMPH: DO YOU TAKE ANY BLOOD THINNERS? (FOR EXAMPLE- COUMADIN, PLAVIX, AGGRENOX, PLATEL, PRADAXA, OR XARELTO) NO . WHEN WAS YOUR LAST DOSE? DATE: TIME: . NEUROLOGY: HAVE YOU FALLEN IN THE PAST 6 MONTHS? YES PT REPORTS FREQUENT FALLS ( STATES AT LEAST 6), DENIES INJURY, STATES SHE IS &QUOT;A KLUTZ&QUOT; . ANY NEW EXTREMITY NUMBNESS OR WEAKNESS? NO . CARDIOLOGY: DO YOU HAVE A PACEMAKER OR DEFIBRILLATOR? NO . RESPIRATORY: HAVE YOU BEEN SICK IN THE PAST WEEK? NO . FEVER NO . FLU LIKE SYMPTOMS? NO . COUGH NO . INTEGUMENTARY: DO YOU HAVE ANY RASHES OR OPEN SORES? NO . ALLERGIC/IMMUNO: ARE YOU ALLERGIC TO SHELLFISH OR IV DYE? NO . ANY NEW ALLERGIES? NO . PSYCHIATRIC: DO YOU HAVE THOUGHTS OF HURTING YOURSELF OR SOMEONE ELSE? NO . ARE YOU ABUSED, NEGLECTED, OR IN AN UNSAFE ENVIRONMENT? NO . ENDOCRINOLOGY: ARE YOU DIABETIC? NO . OTHER: DO YOU NEED ANY PRESCRIPTIONS? YES FLEXERIL, PERCOCET, LYRICA . IF YES, PLEASE LIST: ____ . ANY NEW PROBLEMS WITH YOUR MEDICATIONS? NO . WHEN DID YOU LAST EAT? ____ . WHEN DID YOU LAST DRINK? ____ . WHAT DID YOU LAST DRINK? ____ . NAME OF PERSON DRIVING YOU HOME? ____ . DO YOU HAVE ANY OTHER QUESTIONS OR CONCERNS NO . VITAL SIGNS WT 185 LBS, HT 67 IN, BMI 28.97 INDEX, BP 145/94 MM HG, HR 86 /MIN, RR 18 /MIN, TEMP 97.5 F, OXYGEN SAT % 98%, SAFE IN ENV? (Y/N) YES, NA INITIALS CA 12:50, REVIEWED BY: KEITH. EXAMINATION : PATIENT IS ALERT O X 3 AND COOPERATIVE. TENDERNESS IN LOWER BACK AND PARASPINAL MUSCLE GROUP. LIMPING FROM THE RIGHT LEG. RIGHT LEG WEAKER THEN THE LEFT AT EXTENSION AND FLEXION. MRI DONE ON 09/04/16 OF THE LUMBAR SPINE SHOWS POSTOPERATIVE CHANGES AND NEURAL FORAMINAL NARROWING AT L4-L5. 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 ALMONTE'S PAIN MANAGEMENT CASE. AT THIS TIME THE PATIENT WILL CONTINUE USING LYRICA FOR THE NEUROPATHIC PAIN AND PERCOCET FOR THE SOMATIC PAIN. I WOULD LIKE THE PATIENT TO START THE BUTRAN'S PATCH SHE HAS TRIED GABAPENTIN AND ELAVIL FOR SEVERAL MONTHS AND HAS NOT HAD RELIEF FROM THE BACK PAIN. PATIENT IS UNABLE TO USE IBUPROFEN DUE TO HISTORY OF GASTRIC BYPASS. PATIENT DENIES ABUSE OF ANY MEDICATION, DENIES USE OF ILLEGAL SUBSTANCES, AND STATES SHE IS ONLY USING THE INJECTION FOR PAIN MANAGEMENT. PATIENT WAS REMINDED TO BRING ALL MEDICATIONS TO EVERY VISIT. URINE TOXICOLOGY REPORT DONE ON 11/18/2016 IS CONSISTENT WITH THE PATIENT S MEDICATION LIST. AT THIS TIME WE ARE WAITING ON A CLEARANCE FOR INJECTIONS FROM DR. COKER WHICH THE PATIENT HAS NOT YET RECEIVED. HOWEVER, PATIENT IS A GOOD CANDIDATE FOR A SACROILIAC JOINT INJECTION. WE BRIEFLY DISCUSSED A DCS AT THIS TIME, PATIENT RECEIVED INFORMATION ON THE DEVICE. I WOULD ALSO LIKE THE PATIENT TO BRING THE OR REPORT FROM THE MOST RECENT SURGERY DONE IN [place]. MRS. ALMONTE WILL RETURN TO THE CLINIC IN 3 WEEKS. INSTRUCTIONS WERE GIVEN, QUESTIONS WERE ANSWERED, PATIENT REPORTS UNDERSTANDING AND AGREES WITH THE PLAN. I, MACHELLE PRAJAPATI, DOCUMENTED THE ABOVE INFORMATION ACTING A SCRIBE FOR DR. ZEPEDA. I HAVE REVIEWED THE ABOVE DOCUMENT, WRITTEN BY MACHELLE NUÑEZ AND I VERIFY THAT IT IS ACCURATE. OTHERS REFILL CYCLOBENZAPRINE HCL TABLET, 10 MG, 1 TABLET NEEDED, ORALLY, Q 6 HRS NEEDED FOR SPASMS AND PAIN MDD3, 30 DAY(S), 80, REFILLS 1 REFILL PERCOCET TABLET, 5-325 MG, 1-2 TABLETS, ORALLY, EVERY 6 HRS PRN PAIN MDD=6, 30 DAY(S), 180, REFILLS 0 REFILL BUTRANS PATCH WEEKLY, 10 MCG/HR, 1 PATCH TO SKIN, TRANSDERMAL, WEEKLY, 30 DAY(S), 4, REFILLS 0 PROCEDURE CODES FA211 ESTABILISHED PATIENT [facility] FACILITY CHARGE G8427 DOC MEDS VERIFIED W/PT OR RE G7230 PAIN ASSESS POS TOOL F/U PLAN DOC DISPOSITION & COMMUNICATION FOLLOW UP 4 WEEKS ELECTRONICALLY SIGNED BY HARRISON ZEPEDA MD ON 06/02/2017 AT 06:51 PM EDT DISCLAIMER : THIS IS A VISIT SUMMARY EXTRACTED FROM THE [employer] CHART. IT IS NOT A COPY OF THE [employer] PROGRESS NOTE. GELACIO
== END ==
LOC: M PAIN 12:40
PROVIDERS: ATTEND Anesthesiology
DX: M96.1 Postlaminectomy syndrome, not elsewhere classified (principal); M46.1 Sacroiliitis, not elsewhere classified; M47.816 Spondylosis without myelopathy or radiculopathy, lumbar region; M47.817 Spondylosis without myelopathy or radiculopathy, lumbosacral region; F31.9 Bipolar disorder, unspecified; F41.9 Anxiety disorder, unspecified; F10.21 Alcohol dependence, in remission; G43.909 Migraine, unspecified, not intractable, without status migrainosus; F17.200 Nicotine dependence, unspecified, uncomplicated; I73.00 Raynaud's syndrome without gangrene; D83.9 Common variable immunodeficiency, unspecified; D50.9 Iron deficiency anemia, unspecified; J30.89 Other allergic rhinitis; I87.2 Venous insufficiency (chronic) (peripheral); Z88.5 Allergy status to narcotic agent; Z91.040 Latex allergy status; Z88.8 Allergy status to other drugs, medicaments and biological substances; Z79.891 Long term (current) use of opiate analgesic; Z79.899 Other long term (current) drug therapy

== ENCOUNTER → 2017-05-20 | Outpatient (REF) | payer OTHER | LOC: M SFHCPLAZ 13:17 | PROVIDERS: ATTEND Internal Medicine Infectious Disease | DX: Z22.322 Carrier or suspected carrier of Methicillin resistant Staphylococcus aureus (principal) ==

== ENCOUNTER → 2017-05-22 | Outpatient (REF) | payer OTHER | LOC: M SFHCLERA 11:44 | PROVIDERS: ATTEND Dermatology | DX: L73.9 Follicular disorder, unspecified (principal) ==

== ENCOUNTER → 2017-05-29 | Outpatient (REF) | payer OTHER ==
[2017-05-29 11:58] LABS: MEAN CORPUSCULAR HGB CONC 32.6 g/dl (32.0-36.5); RED CELL DISTRIBUTION WIDTH 17.4 % (11.5-14.5); WHITE BLOOD COUNT 5.8 K/mm3 (4.0-10.0)
[2017-05-29 12:23] LABS: ALBUMIN 3.3 GM/DL (3.2-5.2); ALBUMIN/GLOBULIN RATIO 0.92 (1.00-1.93); ALKALINE PHOSPHATASE 179 U/L (45-117); ALT/SGPT 25 U/L (12-78); ANION GAP 4 MEQ/L (8-16); AST/SGOT 20 U/L (15-37); BILIRUBIN,TOTAL 0.3 MG/DL (0.2-1.0); BLOOD UREA NITROGEN 11 MG/DL (7-18); CALCIUM LEVEL 9.4 MG/DL (8.5-10.1); CARBON DIOXIDE LEVEL 30 MEQ/L (21-32); CHLORIDE LEVEL 107 MEQ/L (98-107); CREATININE FOR GFR 0.76 MG/DL (0.55-1.02); FERRITIN 7 NG/ML (8-252); GLOMERULAR FILTRATION RATE > 60.0 (>60); GLUCOSE, FASTING 76 MG/DL (70-105); SODIUM LEVEL 141 MEQ/L (136-145); TOTAL PROTEIN 6.9 GM/DL (6.4-8.2)
[2017-05-29 12:27] LABS: POTASSIUM SERUM 5.3 MEQ/L (3.5-5.1)
== END ==
LOC: M SFHCLERA 09:44
PROVIDERS: ATTEND Physician Assistant
DX: D50.9 Iron deficiency anemia, unspecified (principal); E66.3 Overweight

== ENCOUNTER 2017-06-03 11:17 | Outpatient (RCR) | payer MEDICAID | END 2017-06-05 | LOC: M OUTALCOH 11:17 | PROVIDERS: ATTEND Psychiatry & Neurology Psychiatry | DX: F10.20 Alcohol dependence, uncomplicated (principal); F13.20 Sedative, hypnotic or anxiolytic dependence, uncomplicated; F17.200 Nicotine dependence, unspecified, uncomplicated ==

== ENCOUNTER → 2017-06-20 | Outpatient (CLI) | payer OTHER ==
--- NOTE | 2017-06-26 01:30 | ECWPNPC ---
PATIENT NAME: ADELA ALMONTE : 1980 GENDER: FEMALE VISIT DATE: 06/20/2017 DISCHARGE DATE: 06/20/17 1324 VISIT LOCKED DATE TIME: PHYSICIAN: HARRISON ZEPEDA RESOURCE: HARRISON ZEPEDA REASON FOR APPOINTMENT 1. BACK PAIN HISTORY OF PRESENT ILLNESS HISTORY OF PRESENT ILLNESS: PAIN THE PATIENT DESCRIBES THE PAIN... 37 YEAR OLD FEMALE PATIENT WITH HISTORY OF CHRONIC BACK PAIN. PATIENT DESCRIBES THE PAIN ACHING, BURNING, SHARP, STABBING, TENDER, THROBBING, SORE, SHOOTING AND HAVING IT ALL THE TIME WITH A PAIN SCORE OF 7/10. PATIENT HAS A HISTORY OF TWO BACK SURGERIES ONE IN 1997 AND ONE IN 2008. PATIENT REPORTS UNABLE TO USE IBUPROFEN DUE TO GASTRIC BYPASS. PATIENT TRIED GABAPENTIN FOR SEVERAL MONTHS WITH NO RELIEF, LYRICA AIDS WITH THE TINGLY IN HER FEET BUT DOES NOT AID IN PAIN RELIEF FOR THE BACK, AND ELAVIL DID NOT AID THE PATIENT WITH PAIN RELIEF. AT THIS TIME THE PATIENT IS USING CYCLOBENZAPRINE, LYRICA AND PERCOCET AND STATES THAT SHE STILL HAS SEVERE PAIN WITH THE MEDICATION. PATIENT REPORTS GAINING CLEARANCE FROM DR. COKER TO RECEIVE INJECTIONS. PATIENT DENIES UNEXPLAINABLE WEIGHT LOSS, FEVER, CHILLS, NEW CHANGES ON HER URINARY OR BOWEL CONTROL. FALL RISK SCREENING: SCREENING :NO FALLS IN THE PAST YEAR CURRENT MEDICATIONS TAKING GAMMAGARD 10 % SOLUTION INTRAVENOUS EVERY 4 WEEKS TAKING MUPIROCIN CALCIUM 2 % CREAM 1 APPLICATION TO AFFECTED AREA EXTERNALLY NOSE GROIN AXILLA HEAD BID 1 WEEK TAKING AMERGE 1 MG TABLET 1 TAB(S) ORALLY DAILY NEEDED TAKING IMITREX 4 MG/0.5ML SOLUTION 1 INJECTION NEEDED AT THE ONSET OF A MIGRAINE SUBCUTANEOUS REPEAT TIMES ONE IF NOT EFFECTIVE (DR JC) TAKING BUSPIRONE HCL 30 MG TABLET 1 TABLET ORALLY TWICE A DAY TAKING VYVANSE 70 MG CAPSULE 1 CAPSULE IN THE MORNING ORALLY ONCE A DAY TAKING ANTABUSE 500 MG TABLET 1 TABLET ORALLY ONCE A DAY TAKING NIFEDIPINE 20 MG CAPSULE 1 CAPSULE ORALLY DAILY TAKING ACETAMINOPHEN 500 MG CAPSULE 1 CAPSULES NEEDED ORALLY EVERY 6 HRS PRN TAKING ZOFRAN ODT 8 MG TABLET DISPERSIBLE 1 ORALLY BID PRN TAKING LYRICA 225 MG CAPSULE 1 CAPSULE ORALLY Q 8 HRS MDD=3 TAKING PERCOCET 5-325 MG TABLET 1-2 TABLETS ORALLY EVERY 6 HRS PRN PAIN MDD=6 TAKING TRILEPTAL 300 MG TABLET 1 TABLET ORALLY TWICE A DAY TAKING FLUOCINONIDE 0.05 % SOLUTION APPLY 1 DROP EXTERNALLY TO EACH SCALP LESION BID TAKING PHENERGAN 25 MG TABLET 1 TABLET ORALLY EVERY 6 HRS PRN NAUSEA NOT-TAKING PROTONIX 40 MG TABLET DELAYED RELEASE 1 TABLET ORALLY ONCE A DAY NOT-TAKING BUTRANS 10 MCG/HR PATCH WEEKLY 1 PATCH TO SKIN TRANSDERMAL WEEKLY DISCONTINUED DOXYCYCLINE HYCLATE 100 MG TABLET 1 TABLET ORALLY EVERY 12 HRS DISCONTINUED FLUTICASONE PROPIONATE 50 MCG/ACT SUSPENSION 1 SPRAY IN EACH NOSTRIL NASALLY ONCE A DAY DISCONTINUED ALBUTEROL SULFATE HFA 108 (90 BASE) MCG/ACT AEROSOL SOLUTION 1-2 PUFFS NEEDED INHALATION EVERY 4 HRS PRN MEDICATION LIST REVIEWED AND RECONCILED WITH THE PATIENT PAST MEDICAL HISTORY HYPERLIPIDEMIA (RESOLVED WITH GASTRIC BYPASS) MENOPAUSE CHRONIC NECK/MID/LOW BACK PAIN PEPTIC ULCER DISEASE, S/P GASTRIC BYPASS BIPOLAR, ANXIETY, DEPRESSION ALCOHOLISM MIGRAINE HEADACHES TOBACCO USE ADD CHRONIC RHINITIS/SINUSITIS RAYNAUD'S SYNDROME COMMON VARIABLE AUTOIMMUNE DEFICIENCY DISEASE ASTHMA ALLERGIES MORPHINE: HIVES: ALLERGY LATEX: HIVES: ALLERGY DILAUDID: HIVES: ALLERGY REGLAN: HIVES: ALLERGY LAMICTAL: HIVES: ALLERGY DEPAKOTE: CONFUSION: CONTRAINDICATION RISPERDAL: SUICIDAL IDEATION: ALLERGY KETOROLAC TROMETHAMINE: ANAPHYLAXIS: ALLERGY GASTROGRAFIN: HIVES: ALLERGY MUSCLE RELAXERS: ALTERED MENTAL STATUS: SIDE EFFECTS SOCIAL HISTORY GENERAL: TOBACCO USE ARE YOU A:CURRENT SMOKER HOW MANY CIGARETTES A DAY DO YOU SMOKE?6-10 HOW SOON AFTER YOU WAKE UP DO YOU SMOKE YOUR FIRST CIGARETTE?AFTER 60 MIN HOW OFTEN DO YOU SMOKE CIGARETTES?EVERY DAY PATIENT COUNSELED ON THE DANGERS OF TOBACCO USE AND URGED TO QUIT:05/29/2017 NO EDUCATION MATERIAL WANTED FOR SMOKING ARE YOU INTERESTED IN QUITTING?THINKING ABOUT QUITTING PREVIOUS QUIT ATTEMPTS?YES, WITHIN THE LAST 6 MONTHS. HAD QUIT FOR 4 MONTHS AND JUST STARTED SMOKING AGAIN APPROX. 2 MONTHS AGO. COUNSELED THE PATIENT ON SMOKING CESSATION, EDUCATION [id number]/24/2017 LUNG CANCER SCREENING SMOKING STATUS:CURRENT SMOKER BMI CARE GOAL FOLLOW-UP ABOVE NORMAL BMI FOLLOW-UPDIETARY MANAGEMENT EDUCATION, GUIDANCE, AND COUNSELING, DIETARY NEEDS EDUCATION, EXERCISE PROMOTION: STRENGTH TRAINING ALCOHOL SCREENING DID YOU HAVE A DRINK CONTAINING ALCOHOL IN THE PAST YEAR?NO POINTS0 INTERPRETATIONNEGATIVE RECREATIONAL DRUG USE DRUG USE?NO CAFFEINE CAFFEINE USE?YES 2-3 CUPS COFFEE & ICED TEA THROUGH THE DAY. SEXUAL HX HAD SEX IN THE LAST 12 MONTHS (VAGINAL, ORAL, OR ANAL)?NO HAVE YOU EVER HAD AN STD?NO LMP:2009 HIV / HEP-C SCREENING HIV TEST OFFERED TO PATIENT:YES DATE OFFERED:03/13/2017 TEST ACCEPTED:NO REASON:PATIENT DECLINED HEP-C TEST OFFERED TO PATIENT:NO OCCUPATION: UNEMPLOYED. DIET: REGULAR. EXERCISE: NO REGULAR EXERCISE. MARITAL STATUS: SINGLE. 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 TRAVEL OUTSIDE US: NO. DOMESTIC VIOLENCE DO YOU FEEL SAFE IN YOUR ENVIRONMENT?YES REVIEW OF SYSTEMS REVIEWED BY: PROVIDER: HARRISON ZEPEDA MD . CONSTITUTIONAL: ANY CHANGE IN YOUR MEDICAL CONDITION? NO . CHILLS NO . FEVER NO . INFECTION: DO YOU HAVE NEW INFECTIONS? NO . DO YOU HAVE HISTORY OF MRSA? NO . MUSCULOSKELETAL: ANY NEW PATTERNS OF PAIN OR NUMBNESS? NO . GASTROENTEROLOGY: ANY NEW CHANGE IN BOWEL CONTROL? NO . GENITOURINARY: ANY NEW CHANGE IN BLADDER CONTROL? NO . IS THERE A CHANCE YOU COULD BE ? NO . HEMATOLOGY/LYMPH: DO YOU TAKE ANY BLOOD THINNERS? (FOR EXAMPLE- COUMADIN, PLAVIX, AGGRENOX, PLATEL, PRADAXA, OR XARELTO) NO . WHEN WAS YOUR LAST DOSE? DATE: TIME: . NEUROLOGY: HAVE YOU FALLEN IN THE PAST 6 MONTHS? YES . ANY NEW EXTREMITY NUMBNESS OR WEAKNESS? NO . CARDIOLOGY: DO YOU HAVE A PACEMAKER OR DEFIBRILLATOR? NO . RESPIRATORY: HAVE YOU BEEN SICK IN THE PAST WEEK? NO . FEVER NO . FLU LIKE SYMPTOMS? NO . COUGH NO . INTEGUMENTARY: DO YOU HAVE ANY RASHES OR OPEN SORES? NO . ALLERGIC/IMMUNO: ARE YOU ALLERGIC TO SHELLFISH OR IV DYE? NO . ANY NEW ALLERGIES? NO . PSYCHIATRIC: DO YOU HAVE THOUGHTS OF HURTING YOURSELF OR SOMEONE ELSE? NO . ARE YOU ABUSED, NEGLECTED, OR IN AN UNSAFE ENVIRONMENT? NO . ENDOCRINOLOGY: ARE YOU DIABETIC? NO . OTHER: DO YOU NEED ANY PRESCRIPTIONS? YES, PERCOCET, LYRICA . IF YES, PLEASE LIST: ____ . ANY NEW PROBLEMS WITH YOUR MEDICATIONS? NO . WHEN DID YOU LAST EAT? ____ . WHEN DID YOU LAST DRINK? ____ . WHAT DID YOU LAST DRINK? ____ . NAME OF PERSON DRIVING YOU HOME? ____ . DO YOU HAVE ANY OTHER QUESTIONS OR CONCERNS YES, QUESTION ABOUT MUSCLE RELAXERS FOR SPASMS. . VITAL SIGNS WT 195 LBS, HT 67 IN, BMI 30.54 INDEX, BP 145/94 MM HG, HR 98 /MIN, RR 18 /MIN, TEMP 97.0 F, OXYGEN SAT % 99%, NA INITIALS SC 12:12, REVIEWED BY: HANDY. EXAMINATION : PATIENT IS ALERT O X 3 AND COOPERATIVE. TENDERNESS IN LOWER BACK AND PARASPINAL MUSCLE GROUP. LIMPING FROM THE RIGHT LEG. RIGHT LEG WEAKER THEN THE LEFT AT EXTENSION AND FLEXION. MRI DONE ON 09/04/16 OF THE LUMBAR SPINE SHOWS POSTOPERATIVE CHANGES AND NEURAL FORAMINAL NARROWING AT L4-L5. ASSESSMENTS LUMBAR POST-LAMINECTOMY SYNDROME - M96.1 (PRIMARY) INTERVERTEBRAL DISC DISORDER WITH RADICULOPATHY OF LUMBAR REGION - M51.16 INTERVERTEBRAL DISC DISORDER WITH RADICULOPATHY OF LUMBOSACRAL REGION - M51.17 TREATMENT LUMBAR POST-LAMINECTOMY SYNDROME REFILL LYRICA CAPSULE, 225 MG, 1 CAPSULE, ORALLY, Q 8 HRS MDD=3, 30 DAY(S), 90, REFILLS 0 REFILL BUTRANS PATCH WEEKLY, 5 MCG/HR, 1 PATCH TO SKIN, TRANSDERMAL, WEEKLY, 30 DAY(S), 4, REFILLS 0 NOTES: LUMBAR EPIDURAL INJECTION: YOUR PROCEDURE MATERIAL WAS PRINTED. CLINICAL NOTES: WE DISCUSSED SEVERAL ISSUES WITH MRS. ALMONTE'S PAIN MANAGEMENT CASE. AT THIS TIME THE PATIENT WILL CONTINUE USING LYRICA FOR THE NEUROPATHIC PAIN AND PERCOCET FOR THE SOMATIC PAIN. I WOULD LIKE THE PATIENT TO START THE BUTRAN'S PATCH SHE HAS TRIED GABAPENTIN AND ELAVIL FOR SEVERAL MONTHS AND HAS NOT HAD RELIEF FROM THE BACK PAIN. PATIENT IS UNABLE TO USE IBUPROFEN DUE TO HISTORY OF GASTRIC BYPASS. I WOULD ALSO LIKE THE PATIENT TO START TIZANIDINE FOR THE MUSCLE SPASMS. PATIENT WAS ADVISED TO STOP THE MEDICATION IF SHE HAS ANY ADVERSE SIDE EFFETS. PATIENT DENIES ABUSE OF ANY MEDICATION, DENIES USE OF ILLEGAL SUBSTANCES, AND STATES SHE IS ONLY USING THE MEDICATION FOR PAIN MANAGEMENT. PATIENT BROUGHT HER MEDICATIONS TO TODAY'S VISIT IN THEIR ORIGINAL BOTTLES. URINE TOXICOLOGY REPORT DONE ON 11/18/2016 IS CONSISTENT WITH THE PATIENT S MEDICATION LIST. PATIENT RECEIVED CLEARANCE FROM DR. COKER TO RECEIVE INJECTIONS LONG SHE FOLLOWS A PROTOCOL TO AVOID ANOTHER INFECTION. AFTER VIEWING THE MRI AND WHERE THE PATIENT STATES HER WORST PAIN IS I WOULD LIKE TO PROCEED WITH A LUMBAR EPIDURAL AND BOOK AFTER APPROVAL. WE DISCUSSED THE RISKS, BENENFITS, AND ALTNERATIVES OF THE INJECTION AND THE PATIENT WOULD LIKE TO PROCEED AT THIS TIME. INSTRUCTIONS WERE GIVEN, QUESTIONS WERE ANSWERED, PATIENT REPORTS UNDERSTANDING AND AGREES WITH THE PLAN. I, MACHELLE PRAJAPATI, DOCUMENTED THE ABOVE INFORMATION ACTING A SCRIBE FOR DR. ZEPEDA. I HAVE REVIEWED THE ABOVE DOCUMENT, WRITTEN BY MACHELLE NUÑEZ AND I VERIFY THAT IT IS ACCURATE. OTHERS REFILL PERCOCET TABLET, 5-325 MG, 1-2 TABLETS, ORALLY, EVERY 6 HRS PRN PAIN MDD=6, 30 DAY(S), 180, REFILLS 0 START TIZANIDINE HCL TABLET, 2 MG, 1 TABLET NEEDED, ORALLY FOR SPASMS AND PAIN, BEFORE BEDTIME MAY REPEAT IN 4 HRS MDD2, 30 DAYS, 50, REFILLS 1 PREVENTIVE MEDICINE DISCUSSED LUMBAR EPIDURAL AND PREPROCEDURE CARE / GAVE INFO ON TIZANIDINE AND BUTRANS. PROCEDURE CODES FA211 ESTABILISHED PATIENT [facility] FACILITY CHARGE G8427 DOC MEDS VERIFIED W/PT OR RE G8730 PAIN ASSESS POS TOOL F/U PLAN DOC DISPOSITION & COMMUNICATION FOLLOW UP 6 WEEKS ELECTRONICALLY SIGNED BY HARRISON ZEPEDA MD ON 06/25/2017 AT 01:34 PM EDT DISCLAIMER : THIS IS A VISIT SUMMARY EXTRACTED FROM THE [employer] CHART. IT IS NOT A COPY OF THE [employer] PROGRESS NOTE. GELACIO
== END ==
LOC: M PAIN 11:15
PROVIDERS: ATTEND Anesthesiology
DX: M96.1 Postlaminectomy syndrome, not elsewhere classified (principal); M51.16 Intervertebral disc disorders with radiculopathy, lumbar region; M51.17 Intervertebral disc disorders with radiculopathy, lumbosacral region; D83.9 Common variable immunodeficiency, unspecified; F31.9 Bipolar disorder, unspecified; F41.9 Anxiety disorder, unspecified; F10.21 Alcohol dependence, in remission; I73.00 Raynaud's syndrome without gangrene; D50.9 Iron deficiency anemia, unspecified; J30.89 Other allergic rhinitis; I87.2 Venous insufficiency (chronic) (peripheral); F17.210 Nicotine dependence, cigarettes, uncomplicated; Z91.040 Latex allergy status; Z88.5 Allergy status to narcotic agent; Z88.8 Allergy status to other drugs, medicaments and biological substances; Z79.1 Long term (current) use of non-steroidal anti-inflammatories (NSAID); Z79.891 Long term (current) use of opiate analgesic; Z79.899 Other long term (current) drug therapy

== ENCOUNTER → 2017-07-01 | Outpatient (CLI) | payer OTHER ==
[~2017-07-01] MED LIST changes: +ISOVUE-M 300 61% 15ML VIAL (Q9967) As Ordered ONE; +LIDOCAINE 1% SDV INJ 30 ML VIAL As Ordered ONE; +diazePAM 5 MG TAB As Ordered ONE; +diphenhydrAMINE 25 MG CAP As Ordered ONE; +methylPREDNISolone SUSP 40 MG/ML (DEPO-medrol) VIAL (J1030) As Ordered ONE; +oxyCODONE 5MG TAB As Ordered ONE
--- NOTE | 2017-07-02 00:05 | ECWPNPC ---
PATIENT NAME: ADELA ALMONTE : 1980 GENDER: FEMALE VISIT DATE: 07/01/2017 DISCHARGE DATE: 07/01/17 1436 VISIT LOCKED DATE TIME: PHYSICIAN: HARRISON ZEPEDA RESOURCE: HARRISON ZEPEDA REASON FOR APPOINTMENT 1. LESI HISTORY OF PRESENT ILLNESS HISTORY OF PRESENT ILLNESS: PAIN THE PATIENT DESCRIBES THE PAIN... FALL RISK SCREENING: SCREENING :NO FALLS IN THE PAST YEAR CURRENT MEDICATIONS TAKING GAMMAGARD 10 % SOLUTION INTRAVENOUS EVERY 4 WEEKS, NOTES: 4 WEEKS AGO TAKING MUPIROCIN CALCIUM 2 % CREAM 1 APPLICATION TO AFFECTED AREA EXTERNALLY NOSE GROIN AXILLA HEAD BID 1 WEEK, NOTES: 07-01-17 0800 TAKING AMERGE 1 MG TABLET 1 TAB(S) ORALLY DAILY NEEDED, NOTES: WEEK AGO TAKING IMITREX 4 MG/0.5ML SOLUTION 1 INJECTION NEEDED AT THE ONSET OF A MIGRAINE SUBCUTANEOUS REPEAT TIMES ONE IF NOT EFFECTIVE (DR JC), NOTES: WEEK AGO TAKING BUSPIRONE HCL 30 MG TABLET 1 TABLET ORALLY TWICE A DAY, NOTES: 07-01-17 050 TAKING VYVANSE 70 MG CAPSULE 1 CAPSULE IN THE MORNING ORALLY ONCE A DAY, NOTES: 07-01-17 050 TAKING ANTABUSE 500 MG TABLET 1 TABLET ORALLY ONCE A DAY, NOTES: 07-01-17499 TAKING NIFEDIPINE 20 MG CAPSULE 1 CAPSULE ORALLY DAILY, NOTES: 07-01-17 050 TAKING ACETAMINOPHEN 500 MG CAPSULE 1 CAPSULES NEEDED ORALLY EVERY 6 HRS PRN, NOTES: NONE TAKING ZOFRAN ODT 8 MG TABLET DISPERSIBLE 1 ORALLY BID PRN, NOTES: 06-30-17 9 PM TAKING TRILEPTAL 300 MG TABLET 1 TABLET ORALLY TWICE A DAY, NOTES: 07-01-17 050 TAKING FLUOCINONIDE 0.05 % SOLUTION APPLY 1 DROP EXTERNALLY TO EACH SCALP LESION BID, NOTES: MONTH AGO TAKING PHENERGAN 25 MG TABLET 1 TABLET ORALLY EVERY 6 HRS PRN NAUSEA, NOTES: 07-01-17 0900 TAKING PERCOCET 5-325 MG TABLET 1-2 TABLETS ORALLY EVERY 6 HRS PRN PAIN MDD=6, NOTES: 07-01-17 050 TAKING TIZANIDINE HCL 2 MG TABLET 1 TABLET NEEDED ORALLY FOR SPASMS AND PAIN BEFORE BEDTIME MAY REPEAT IN 4 HRS MDD2, NOTES: 06-30-17 9 PM TAKING LYRICA 225 MG CAPSULE 1 CAPSULE ORALLY Q 8 HRS MDD=3, NOTES: 07-01-17 0500 TAKING BUTRANS 5 MCG/HR PATCH WEEKLY 1 PATCH TO SKIN TRANSDERMAL WEEKLY, NOTES: HASNT GOT THE MED YET TAKING OMEPRAZOLE 40 MG CAPSULE DELAYED RELEASE 1 CAPSULE ORALLY TWICE A DAY, NOTES: NEW MED NOT-TAKING PROTONIX 40 MG TABLET DELAYED RELEASE 1 TABLET ORALLY ONCE A DAY MEDICATION LIST REVIEWED AND RECONCILED WITH THE PATIENT PAST MEDICAL HISTORY HYPERLIPIDEMIA (RESOLVED WITH GASTRIC BYPASS) MENOPAUSE CHRONIC NECK/MID/LOW BACK PAIN PEPTIC ULCER DISEASE, S/P GASTRIC BYPASS BIPOLAR, ANXIETY, DEPRESSION ALCOHOLISM MIGRAINE HEADACHES TOBACCO USE ADD CHRONIC RHINITIS/SINUSITIS RAYNAUD'S SYNDROME COMMON VARIABLE AUTOIMMUNE DEFICIENCY DISEASE ASTHMA ALLERGIES MORPHINE: HIVES: ALLERGY LATEX: HIVES: ALLERGY DILAUDID: HIVES: ALLERGY REGLAN: HIVES: ALLERGY LAMICTAL: HIVES: ALLERGY DEPAKOTE: CONFUSION: CONTRAINDICATION RISPERDAL: SUICIDAL IDEATION: ALLERGY KETOROLAC TROMETHAMINE: ANAPHYLAXIS: ALLERGY GASTROGRAFIN: HIVES: ALLERGY MUSCLE RELAXERS: ALTERED MENTAL STATUS: SIDE EFFECTS SOCIAL HISTORY GENERAL: TOBACCO USE ARE YOU A:CURRENT SMOKER HOW MANY CIGARETTES A DAY DO YOU SMOKE?6-10 HOW SOON AFTER YOU WAKE UP DO YOU SMOKE YOUR FIRST CIGARETTE?AFTER 60 MIN HOW OFTEN DO YOU SMOKE CIGARETTES?EVERY DAY PATIENT COUNSELED ON THE DANGERS OF TOBACCO USE AND URGED TO QUIT:05/29/2017 NO EDUCATION MATERIAL WANTED FOR SMOKING ARE YOU INTERESTED IN QUITTING?THINKING ABOUT QUITTING PREVIOUS QUIT ATTEMPTS?YES, WITHIN THE LAST 6 MONTHS. HAD QUIT FOR 4 MONTHS AND JUST STARTED SMOKING AGAIN APPROX. 2 MONTHS AGO. COUNSELED THE PATIENT ON SMOKING CESSATION, EDUCATION [id number]/24/2017 LUNG CANCER SCREENING SMOKING STATUS:CURRENT SMOKER BMI CARE GOAL FOLLOW-UP ABOVE NORMAL BMI FOLLOW-UPDIETARY MANAGEMENT EDUCATION, GUIDANCE, AND COUNSELING, DIETARY NEEDS EDUCATION, EXERCISE PROMOTION: STRENGTH TRAINING ALCOHOL SCREENING DID YOU HAVE A DRINK CONTAINING ALCOHOL IN THE PAST YEAR?NO POINTS0 INTERPRETATIONNEGATIVE RECREATIONAL DRUG USE DRUG USE?NO CAFFEINE CAFFEINE USE?YES 2-3 CUPS COFFEE & ICED TEA THROUGH THE DAY. SEXUAL HX HAD SEX IN THE LAST 12 MONTHS (VAGINAL, ORAL, OR ANAL)?NO HAVE YOU EVER HAD AN STD?NO LMP:2009 HIV / HEP-C SCREENING HIV TEST OFFERED TO PATIENT:YES DATE OFFERED:03/13/2017 TEST ACCEPTED:NO REASON:PATIENT DECLINED HEP-C TEST OFFERED TO PATIENT:NO OCCUPATION: UNEMPLOYED. DIET: REGULAR. EXERCISE: NO REGULAR EXERCISE. MARITAL STATUS: SINGLE. 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 TRAVEL OUTSIDE US: NO. DOMESTIC VIOLENCE DO YOU FEEL SAFE IN YOUR ENVIRONMENT?YES REVIEW OF SYSTEMS REVIEWED BY: PROVIDER: . CONSTITUTIONAL: ANY CHANGE IN YOUR MEDICAL CONDITION? NO . CHILLS NO . FEVER NO . INFECTION: DO YOU HAVE NEW INFECTIONS? NO . DO YOU HAVE HISTORY OF MRSA? NO . MUSCULOSKELETAL: ANY NEW PATTERNS OF PAIN OR NUMBNESS? YES . GASTROENTEROLOGY: ANY NEW CHANGE IN BOWEL CONTROL? NO . GENITOURINARY: ANY NEW CHANGE IN BLADDER CONTROL? NO . IS THERE A CHANCE YOU COULD BE ? NO . HEMATOLOGY/LYMPH: DO YOU TAKE ANY BLOOD THINNERS? (FOR EXAMPLE- COUMADIN, PLAVIX, AGGRENOX, PLATEL, PRADAXA, OR XARELTO) NO . WHEN WAS YOUR LAST DOSE? DATE: TIME: . NEUROLOGY: HAVE YOU FALLEN IN THE PAST 6 MONTHS? YES . ANY NEW EXTREMITY NUMBNESS OR WEAKNESS? NO . CARDIOLOGY: DO YOU HAVE A PACEMAKER OR DEFIBRILLATOR? NO . RESPIRATORY: HAVE YOU BEEN SICK IN THE PAST WEEK? NO . FEVER NO . FLU LIKE SYMPTOMS? NO . COUGH NO . INTEGUMENTARY: DO YOU HAVE ANY RASHES OR OPEN SORES? NO . ALLERGIC/IMMUNO: ARE YOU ALLERGIC TO SHELLFISH OR IV DYE? NO . ANY NEW ALLERGIES? NO . PSYCHIATRIC: DO YOU HAVE THOUGHTS OF HURTING YOURSELF OR SOMEONE ELSE? NO . ARE YOU ABUSED, NEGLECTED, OR IN AN UNSAFE ENVIRONMENT? NO . ENDOCRINOLOGY: ARE YOU DIABETIC? NO . OTHER: DO YOU NEED ANY PRESCRIPTIONS? NO . IF YES, PLEASE LIST: ____ . ANY NEW PROBLEMS WITH YOUR MEDICATIONS? NO . WHEN DID YOU LAST EAT? 2100 . WHEN DID YOU LAST DRINK? 0700 . WHAT DID YOU LAST DRINK? WATER . NAME OF PERSON DRIVING YOU HOME? MEDICAID SILICATOR . DO YOU HAVE ANY OTHER QUESTIONS OR CONCERNS YES, QUESTIONS ABOUT MEDICATIONS - FEELS LIKE THINGS OR BUGS CRAWLING ON LEGS - LYRICA HELPED BEFORE BACK NOW FOR ABOUT A WEEK . VITAL SIGNS WT 193 LBS, HT 67 IN, BMI 30.22 INDEX, BP 128/88 MM HG, HR 72 /MIN, RR 18 /MIN, TEMP 97.5 F, OXYGEN SAT % 98%, NA INITIALS AW 1158, REVIEWED BY: LS. ASSESSMENTS INTERVERTEBRAL DISC DISORDER WITH RADICULOPATHY OF LUMBOSACRAL REGION - M51.17 (PRIMARY) PROCEDURES PRE PROCEDURE DIAGNOSIS LUMBOSACRAL DISC DISORDER WITH RADICULOPATHY POST PROCEDURE DIAGNOSIS LUMBOSACRAL DISC DISORDER WITH RADICULOPATHY PROCEDURE LUMBAR EPIDURAL STEROID INJECTION UNDER FLUOROSCOPIC GUIDANCE SURGEON DR. HARRISON ZEPEDA OFFICE SUPPORT SPECIALIST NONE ANESTHESIA LOCAL PRE PROCEDURE NOTE THE PATIENT HAS A HISTORY OF CHRONIC LOW BACK PAIN. I EVALUATE THE PATIENT AND REVIEWED THE CHART. I WENT OVER THE RISKS, ALTERNATIVES, AND BENEFITS ASSOCIATED WITH THIS PROCEDURE. THE PATIENT WOULD LIKE TO PROCEED AND GIVE CONSENT TO PERFORMED THE PROCEDURE. THE PATIENT DENIES UNEXPLAINABLE WEIGHT LOSS, FEVER, CHILLS, OR NEW CHANGES IN URINARY OR BOWEL CONTROL. DESCRIPTION OF PROCEDURE THE PATIENT WAS BROUGHT TO THE PROCEDURE ROOM AND PLACED IN THE PRONE POSITION. THE LUMBOSACRAL AREA WAS CLEANED WITH BETADINE SOLUTION AND DRAPED ASEPTICALLY. THE PROCEDURE WAS DONE UNDER STERILE CONDITIONS. I CHECKED LATERALITY AND THE LEVEL WHERE THE PROCEDURE WAS GOING TO BE PERFORMED WITH THE PATIENT AND THE SUPPORTING STAFF AT THE MOMENT OF THE TIME OUT IN THE PROCEDURE ROOM. UNDER FLUOROSCOPIC GUIDANCE, THE TARGET POINT WAS SELECTED AT THE INTERLAMINAR LEVEL OF L5-S1. LIDOCAINE WAS USED TO NUMB THE SKIN AND THE SUBCUTANEOUS TISSUE BELOW IT. EPIDURAL TUOHY NEEDLE, 17-GAUGE, WAS ADVANCED UNDER FLUOROSCOPIC GUIDANCE AND FOLLOWING PATIENT FEEDBACK UNTIL THE EPIDURAL SPACE WAS REACHED, 7 CM DEEP INTO THE SKIN BY THE LOSS OF RESISTANCE TECHNIQUE. ISOVUE M DYE 30%, 0.25 ML, WAS INJECTED SHOWING ADEQUATE SPREAD OF THE DYE. THEN, A SOLUTION OF 3 ML OF NORMAL SALINE WITH DEPO-MEDROL 60 MG WAS INJECTED SLOWLY FOLLOWING PATIENT FEEDBACK. THERE WAS NO EVIDENCE OF BLOOD, PARESTHESIA OR CEREBROSPINAL FLUID DURING THE PROCEDURE. THE PATIENT WAS SENT TO THE RECOVERY ROOM. THE PATIENT WAS MOVING THE EXTREMITIES AND DOING WELL. THERE WAS NO COMPLICATION DURING THE PROCEDURE. FLUOROSCOPY TIME WAS 7 SECONDS. POST PROCEDURE NOTE THE PATIENT WILL BE SEEN IN A FOLLOW UP IN THE NEXT FEW WEEKS. INSTRUCTIONS WERE GIVEN, QUESTIONS WERE ANSWERED, AND THE PATIENT EXPRESSED UNDERSTANDING AND AGREES WITH THE PLAN. I, MACHELLE PRAJAPATI, DOCUMENTED THE ABOVE INFORMATION ACTING A SCRIBE FOR DR. ZEPEDA. I HAVE REVIEWED THE ABOVE DOCUMENT, WRITTEN BY MACHELLE KAISERIBKarissa AND I VERIFY THAT IT IS ACCURATE DIAGNOSTIC IMAGING [facility] FLUORO GUIDE SPINE INJECTION (PAIN)[id number] PROCEDURE CODES 52204 LUMBAR/SACRAL W/ IMAGING 6045F RADXPS IN END [id number] PXD DISPOSITION & COMMUNICATION FOLLOW UP 3 WEEKS ELECTRONICALLY SIGNED BY HARRISON ZEPEDA MD ON 07/01/2017 AT 09:53 PM EDT DISCLAIMER : THIS IS A VISIT SUMMARY EXTRACTED FROM THE [employer] CHART. IT IS NOT A COPY OF THE [employer] PROGRESS NOTE. MTDD
--- NOTE | 2017-07-02 18:04 | REP ---
RIGHT FACET BLOCK INJECTION. All imaging was reviewed with Dr. Mendes prior to dictation. The portable C-Arm is provided in the OR for Dr. Eduardo for fluoroscopic guidance. Four intraoperative fluoroscopic spot films were obtained using last imaging hold technology for needle placement verification for right lumbar facet injection. The films are on the PACs system and are available for review. 7 seconds of fluoroscopy time were utilized for this procedure. Reviewed by MADY Welch 07/03/2017 08:23 AEdited and Signed by Chava Mendes MD 07/03/2017 07:59 P
== END ==
LOC: M PAIN 11:45
PROVIDERS: ATTEND Anesthesiology
DX: G89.29 Other chronic pain (principal); M51.17 Intervertebral disc disorders with radiculopathy, lumbosacral region; D83.9 Common variable immunodeficiency, unspecified; F31.9 Bipolar disorder, unspecified; F41.9 Anxiety disorder, unspecified; F10.21 Alcohol dependence, in remission; I73.00 Raynaud's syndrome without gangrene; J30.89 Other allergic rhinitis; I87.2 Venous insufficiency (chronic) (peripheral); F17.210 Nicotine dependence, cigarettes, uncomplicated; Z91.040 Latex allergy status; Z88.5 Allergy status to narcotic agent; Z88.8 Allergy status to other drugs, medicaments and biological substances; Z79.891 Long term (current) use of opiate analgesic; Z79.899 Other long term (current) drug therapy
CPT/HCPCS: 62323; J1030; Q9967

== ENCOUNTER 2017-07-03 14:00 | Outpatient (RCR) | payer OTHER ==
[~2017-07-03 14:00] MED LIST changes: -ISOVUE-M 300 61% 15ML VIAL (Q9967) As Ordered ONE; -LIDOCAINE 1% SDV INJ 30 ML VIAL As Ordered ONE; -diazePAM 5 MG TAB As Ordered ONE; -diphenhydrAMINE 25 MG CAP As Ordered ONE; -methylPREDNISolone SUSP 40 MG/ML (DEPO-medrol) VIAL (J1030) As Ordered ONE; -oxyCODONE 5MG TAB As Ordered ONE
== END 2017-07-05 ==
LOC: M OUTALCOH 14:00
PROVIDERS: ATTEND Psychiatry & Neurology Psychiatry
DX: F10.20 Alcohol dependence, uncomplicated (principal); F13.20 Sedative, hypnotic or anxiolytic dependence, uncomplicated; F17.200 Nicotine dependence, unspecified, uncomplicated

== ENCOUNTER → 2017-07-23 | Outpatient (CLI) | payer OTHER ==
[2017-07-23 17:30] LABS: MEAN CORPUSCULAR HEMOGLOBIN 27.5 pg (27.0-33.0); MEAN CORPUSCULAR HGB CONC 31.3 g/dl (32.0-36.5); MEAN CORPUSCULAR VOLUME 87.9 fl (80.0-96.0); RED CELL DISTRIBUTION WIDTH 16.1 % (11.5-14.5); WHITE BLOOD COUNT 5.8 10^3/uL (4.0-10.0)
[2017-07-23 17:48] LABS: FERRITIN 6 NG/ML (8-252); PERCENT SATURATION 9.5 % (13.2-45.0); TOTAL IRON BINDING CAPACITY 505 UG/DL (250-450)
[2017-07-23 18:51] LABS: VITAMIN B12 LEVEL > 2000 PG/ML (247-911)
== END ==
LOC: M LAB 16:33
PROVIDERS: ATTEND Internal Medicine Gastroenterology
DX: R11.2 Nausea with vomiting, unspecified (principal); Z98.84 Bariatric surgery status; Z83.79 Family history of other diseases of the digestive system; K59.00 Constipation, unspecified

== ENCOUNTER → 2017-07-25 | Outpatient (CLI) | payer OTHER ==
--- NOTE | 2017-08-08 02:45 | ECWPNPC ---
PATIENT NAME: ADELA ALMONTE : 1980 GENDER: FEMALE VISIT DATE: 07/25/2017 DISCHARGE DATE: 07/25/17 1205 VISIT LOCKED DATE TIME: PHYSICIAN: HARRISON ZEPEDA RESOURCE: HARRISON ZEPEDA REASON FOR APPOINTMENT 1. LOW BACK PAIN HISTORY OF PRESENT ILLNESS HISTORY OF PRESENT ILLNESS: PAIN THE PATIENT DESCRIBES THE PAIN... 37 YEAR OLD FEMALE PATIENT WITH HISTORY OF CHRONIC BACK PAIN. PATIENT DESCRIBES THE PAIN ACHING, BURNING, SHARP, STABBING, TENDER, THROBBING, SORE, SHOOTING AND HAVING IT ALL THE TIME WITH A PAIN SCORE OF 7/10. PATIENT HAS A HISTORY OF TWO BACK SURGERIES ONE IN 1997 AND ONE IN 2008. PATIENT REPORTS UNABLE TO USE IBUPROFEN DUE TO GASTRIC BYPASS. PATIENT TRIED GABAPENTIN FOR SEVERAL MONTHS WITH NO RELIEF, LYRICA AIDS WITH THE TINGLY IN HER FEET BUT DOES NOT AID IN PAIN RELIEF FOR THE BACK, AND ELAVIL DID NOT AID THE PATIENT WITH PAIN RELIEF. AT THIS TIME THE PATIENT IS USING CYCLOBENZAPRINE, LYRICA AND PERCOCET AND STATES THAT SHE STILL HAS SEVERE PAIN WITH THE MEDICATION. PATIENT RECEIVED A LUMBAR EPIDURAL ON 07/01/17 AND STATES THAT SHE HAD OVER 50% RELIEF FROM THE INJECTION WITH INCREASED MOBILITY AND FUNCTIONALITY. PATIENT STATES THAT SHE WAS ABLE TO DECREASE THE USE OF THE PERCOCET DUE TO THE INJECTION. PATIENT DENIES UNEXPLAINABLE WEIGHT LOSS, FEVER, CHILLS, NEW CHANGES ON HER URINARY OR BOWEL CONTROL. FALL RISK SCREENING: SCREENING :NO FALLS IN THE PAST YEAR CURRENT MEDICATIONS TAKING GAMMAGARD 10 % SOLUTION INTRAVENOUS EVERY 4 WEEKS, NOTES: 4 WEEKS AGO TAKING MUPIROCIN CALCIUM 2 % CREAM 1 APPLICATION TO AFFECTED AREA EXTERNALLY NOSE GROIN AXILLA HEAD BID 1 WEEK, NOTES: 07-01-17 0800 TAKING AMERGE 1 MG TABLET 1 TAB(S) ORALLY DAILY NEEDED, NOTES: WEEK AGO TAKING IMITREX 4 MG/0.5ML SOLUTION 1 INJECTION NEEDED AT THE ONSET OF A MIGRAINE SUBCUTANEOUS REPEAT TIMES ONE IF NOT EFFECTIVE (DR JC), NOTES: WEEK AGO TAKING BUSPIRONE HCL 30 MG TABLET 1 TABLET ORALLY TWICE A DAY, NOTES: 07-01-17 0500 TAKING VYVANSE 70 MG CAPSULE 1 CAPSULE IN THE MORNING ORALLY ONCE A DAY, NOTES: 07-01-17 050 TAKING ANTABUSE 500 MG TABLET 1 TABLET ORALLY ONCE A DAY, NOTES: 07-01-17499 TAKING NIFEDIPINE 20 MG CAPSULE 1 CAPSULE ORALLY DAILY, NOTES: 07-01-17499 TAKING ACETAMINOPHEN 500 MG CAPSULE 1 CAPSULES NEEDED ORALLY EVERY 6 HRS PRN, NOTES: NONE TAKING ZOFRAN ODT 8 MG TABLET DISPERSIBLE 1 ORALLY BID PRN, NOTES: 06-30-17 9 PM TAKING TRILEPTAL 300 MG TABLET 1 TABLET ORALLY TWICE A DAY, NOTES: 07-01-17499 TAKING FLUOCINONIDE 0.05 % SOLUTION APPLY 1 DROP EXTERNALLY TO EACH SCALP LESION BID, NOTES: MONTH AGO TAKING PHENERGAN 25 MG TABLET 1 TABLET ORALLY EVERY 6 HRS PRN NAUSEA, NOTES: 07-01-17 0900 TAKING PERCOCET 5-325 MG TABLET 1-2 TABLETS ORALLY EVERY 6 HRS PRN PAIN MDD=6, NOTES: 07-01-17499 TAKING OMEPRAZOLE 40 MG CAPSULE DELAYED RELEASE 1 CAPSULE ORALLY TWICE A DAY, NOTES: NEW MED TAKING LYRICA 225 MG CAPSULE 1 CAPSULE ORALLY Q 8 HRS MDD=3, NOTES: 07-01-17499 TAKING TIZANIDINE HCL 2 MG TABLET 1 TABLET NEEDED ORALLY FOR SPASMS AND PAIN BEFORE BEDTIME MAY REPEAT IN 4 HRS MDD2, NOTES: 06-30-17 9 PM TAKING LATUDA 80 MG TABLET 1 TABLET WITH FOOD ORALLY ONCE A DAY NOT-TAKING BUTRANS 5 MCG/HR PATCH WEEKLY 1 PATCH TO SKIN TRANSDERMAL WEEKLY, NOTES: HASNT GOT THE MED YET NOT-TAKING PROTONIX 40 MG TABLET DELAYED RELEASE 1 TABLET ORALLY ONCE A DAY MEDICATION LIST REVIEWED AND RECONCILED WITH THE PATIENT PAST MEDICAL HISTORY HYPERLIPIDEMIA (RESOLVED WITH GASTRIC BYPASS) MENOPAUSE CHRONIC NECK/MID/LOW BACK PAIN PEPTIC ULCER DISEASE, S/P GASTRIC BYPASS BIPOLAR, ANXIETY, DEPRESSION ALCOHOLISM MIGRAINE HEADACHES TOBACCO USE ADD CHRONIC RHINITIS/SINUSITIS 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 HAD QUIT FOR 4 MONTHS AND JUST STARTED SMOKING AGAIN APPROX. 2 MONTHS AGO. COUNSELED THE PATIENT ON SMOKING CESSATION, EDUCATION [id number]/20/2017 HOW MANY CIGARETTES A DAY DO YOU SMOKE?6-10 HOW SOON AFTER YOU WAKE UP DO YOU SMOKE YOUR FIRST CIGARETTE?AFTER 60 MIN HOW OFTEN DO YOU SMOKE CIGARETTES?EVERY DAY PATIENT COUNSELED ON THE DANGERS OF TOBACCO USE AND URGED TO QUIT:07/25/2017 NO EDUCATION MATERIAL WANTED FOR SMOKING LUNG CANCER SCREENING SMOKING STATUS:CURRENT SMOKER BMI CARE GOAL FOLLOW-UP ABOVE NORMAL BMI FOLLOW-UPDIETARY MANAGEMENT EDUCATION, GUIDANCE, AND COUNSELING, DIETARY NEEDS EDUCATION, EXERCISE PROMOTION: STRENGTH TRAINING ALCOHOL SCREENING DID YOU HAVE A DRINK CONTAINING ALCOHOL IN THE PAST YEAR?NO POINTS0 INTERPRETATIONNEGATIVE RECREATIONAL DRUG USE DRUG USE?NO CAFFEINE CAFFEINE USE?YES 2-3 CUPS COFFEE & ICED TEA THROUGH THE DAY. SEXUAL HX HAD SEX IN THE LAST 12 MONTHS (VAGINAL, ORAL, OR ANAL)?NO HAVE YOU EVER HAD AN STD?NO LMP:2009 HIV / HEP-C SCREENING HIV TEST OFFERED TO PATIENT:YES DATE OFFERED:03/13/2017 TEST ACCEPTED:NO REASON:PATIENT DECLINED HEP-C TEST OFFERED TO PATIENT:NO OCCUPATION: UNEMPLOYED. DIET: REGULAR. EXERCISE: NO REGULAR EXERCISE. MARITAL STATUS: SINGLE. YARSANI [id number] HINDUISM LANGUAGE LANGUAGES SPOKEN:IVORIAN EDUCATION LEVEL OF EDUCATION:NOT FINISHED COLLEGE LEARNING BARRIERS / SPECIAL NEEDS CHANGE FROM LAST VISIT?NO BARRIERS TO LEARNING?NO HEARING IMPAIRED?NO VISION IMPAIRED?NO COGNITIVELY IMPAIRED?NO READINESS TO LEARN?YES LEARNING PREFERENCES?NO LEARNING CAPABILITIES PRESENT?YES EMOTIONAL BARRIERS?NO SPECIAL DEVICES?NO FILM SPOOLER NEEDED?NO PAIN CLINIC PFS, CLERGY, PUBLIC HEALTH REFERRALS WAS THE PROVIDER NOTIFIED OF ANY PERTINENT INFO?YES HAS THE PATIENT BEEN EDUCATED REGARDING HIS/HER PLAN OF CARE?YES HAS THE PATIENT BEEN EDUCATED REGARDING PAIN, THE RISK FOR PAIN, THE IMPORTANCE OF EFFECTIVE PAIN MANAGEMENT, AND THE PAIN ASSESSMENT PROCESS?YES PATIENT: ____. TRAVEL OUTSIDE US: NO. DOMESTIC VIOLENCE DO YOU FEEL SAFE IN YOUR ENVIRONMENT?YES REVIEW OF SYSTEMS REVIEWED BY: PROVIDER: . CONSTITUTIONAL: ANY CHANGE IN YOUR MEDICAL CONDITION? NO . CHILLS NO . FEVER NO . INFECTION: DO YOU HAVE NEW INFECTIONS? NO . DO YOU HAVE HISTORY OF MRSA? NO . MUSCULOSKELETAL: ANY NEW PATTERNS OF PAIN OR NUMBNESS? NO . GASTROENTEROLOGY: ANY NEW CHANGE IN BOWEL CONTROL? NO . GENITOURINARY: ANY NEW CHANGE IN BLADDER CONTROL? NO . IS THERE A CHANCE YOU COULD BE ? NO . HEMATOLOGY/LYMPH: DO YOU TAKE ANY BLOOD THINNERS? (FOR EXAMPLE- COUMADIN, PLAVIX, AGGRENOX, PLATEL, PRADAXA, OR XARELTO) NO . WHEN WAS YOUR LAST DOSE? DATE: TIME: . NEUROLOGY: HAVE YOU FALLEN IN THE PAST 6 MONTHS? YES PT REPORTS SHE HAS "TWO LEFT FEET" AND CATCHES HER TOE AND STUMBLES. LAST FALL WAS 3-4 MONTHS AGO. . ANY NEW EXTREMITY NUMBNESS OR WEAKNESS? NO . CARDIOLOGY: DO YOU HAVE A PACEMAKER OR DEFIBRILLATOR? NO . RESPIRATORY: HAVE YOU BEEN SICK IN THE PAST WEEK? NO . FEVER NO . FLU LIKE SYMPTOMS? NO . COUGH NO . INTEGUMENTARY: DO YOU HAVE ANY RASHES OR OPEN SORES? NO . ALLERGIC/IMMUNO: ARE YOU ALLERGIC TO SHELLFISH OR IV DYE? NO . ANY NEW ALLERGIES? NO . PSYCHIATRIC: DO YOU HAVE THOUGHTS OF HURTING YOURSELF OR SOMEONE ELSE? NO . ARE YOU ABUSED, NEGLECTED, OR IN AN UNSAFE ENVIRONMENT? NO . ENDOCRINOLOGY: ARE YOU DIABETIC? NO . OTHER: DO YOU NEED ANY PRESCRIPTIONS? YES . IF YES, PLEASE LIST: ____OXYCODONE . ANY NEW PROBLEMS WITH YOUR MEDICATIONS? NO . WHEN DID YOU LAST EAT? ____ . WHEN DID YOU LAST DRINK? ____ . WHAT DID YOU LAST DRINK? ____ . NAME OF PERSON DRIVING YOU HOME? ____ . DO YOU HAVE ANY OTHER QUESTIONS OR CONCERNS NO . VITAL SIGNS WT 192 LBS, HT 67 IN, BMI 30.07 INDEX, BP 132/92 MM HG, HR 90 /MIN, RR 18 /MIN, TEMP 97.7 F, OXYGEN SAT % 98%, NA INITIALS SC 10:43. EXAMINATION : PATIENT IS ALERT O X 3 AND COOPERATIVE. TENDERNESS IN LOWER BACK AND PARASPINAL MUSCLE GROUP. LIMPING FROM THE RIGHT LEG. RIGHT LEG WEAKER THEN THE LEFT AT EXTENSION AND FLEXION. MRI DONE ON 09/04/16 OF THE LUMBAR SPINE SHOWS POSTOPERATIVE CHANGES AND NEURAL FORAMINAL NARROWING AT L4-L5. 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 CLINICAL NOTES: WE DISCUSSED SEVERAL ISSUES WITH MRS. ALMONTE'S PAIN MANAGEMENT CASE. AT THIS TIME THE PATIENT WILL CONTINUE WITH THE SAME MEDICATION REGIME BEFORE. PATIENT REPORTS USING LESS MEDICATION DUE TO THE RELIEF FROM THE LUMBAR EPIDURAL. PATIENT WILL RECEIVE PERCOCET MDD 4 FOR THE SOMATIC PAIN, TIZANIDINE FOR THE MUSCLE SPASMS, AND LYRICA FOR THE NEUROPATHIC PAIN. PATIENT DENIES ABUSE OF THE MEDICATION, DENIES USE OF ILLEGAL SUBSTANCES, AND STATES SHE IS ONLY USING THE MEDICATION FOR PAIN MANAGEMENT. URINE TOXICOLOGY REPORT DONE ON 11/2016 SHOWS CONSISTENT RESULTS. PATIENT WILL PERFORM A URINE TOXICOLOGY REPORT TODAY. ISTOP REVIEWED [id number]. PATIENT REPORTS DOING VERY WELL FROM THE LUMBAR EPIDURAL AND SHE HAS INCREASED MOBILITY AND FUNCTIONALITY AND WAS ABLE TO DECREASE HER MEDICATION. HOWEVER, PATIENT REPORTS HAVING A LOT OF PAIN IN THE SACROILIAC JOINT AREA. WE DISCUSSED THE RISKS, BENEFITS, AND ALTNERATIVES OF THE INJECTION AND THE PATIENT WOULD LIKE TO PROCEED AT THIS TIME. WE ARE HOPING FOR LONG LASTING PAIN RELIEF FROM THIS INJECTION AND THAT THE PATIENT WILL CONTINUE TO REDUCE THE USE OF NARCOTICS. INSTRUCTIONS WERE GIVEN, QUESTIONS WERE ANSWERED, PATIENT REPORTS UNDERSTANDING AND AGREES WITH THE PLAN. I, MACHELLE PRAJAPATI, DOCUMENTED THE ABOVE INFORMATION ACTING A SCRIBE FOR DR. ZEPEDA. I HAVE REVIEWED THE ABOVE DOCUMENT, WRITTEN BY MACHELLE NUÑEZ AND I VERIFY THAT IT IS ACCURATE. OTHERS REFILL PERCOCET TABLET, 5-325 MG, 1 TABLETS, ORALLY, EVERY 4 HRS PRN PAIN MDD=5, 30 DAY(S), 135, REFILLS 0, NOTES: 07-01-17 0500 CONTINUE TIZANIDINE HCL TABLET, 2 MG, 1 TABLET NEEDED, ORALLY FOR SPASMS AND PAIN, BEFORE BEDTIME MAY REPEAT IN 4 HRS MDD2, 30 DAY(S), 50, REFILLS 1, NOTES: 9-25-17 9 PM PREVENTIVE MEDICINE SACROILLIAC JOINT INJECTIONA INFORMATION REVIEWED WITH PATIENT. PROCEDURE CODES FA211 ESTABILISHED PATIENT [facility] FACILITY CHARGE G8427 DOC MEDS VERIFIED W/PT OR RE G8730 PAIN ASSESS POS TOOL F/U PLAN DOC DISPOSITION & COMMUNICATION FOLLOW UP SI[facility] AFTER APPROVAL ELECTRONICALLY SIGNED BY HARRISON ZEPEDA MD ON 08/07/2017 AT 01:25 PM EDT DISCLAIMER : THIS IS A VISIT SUMMARY EXTRACTED FROM THE [employer] CHART. IT IS NOT A COPY OF THE [employer] PROGRESS NOTE. MTDD
== END ==
LOC: M PAIN 10:30
PROVIDERS: ATTEND Anesthesiology
DX: G89.29 Other chronic pain (principal); M46.1 Sacroiliitis, not elsewhere classified; M96.1 Postlaminectomy syndrome, not elsewhere classified; M51.16 Intervertebral disc disorders with radiculopathy, lumbar region; M51.17 Intervertebral disc disorders with radiculopathy, lumbosacral region; F41.9 Anxiety disorder, unspecified; F32.9 Major depressive disorder, single episode, unspecified; F10.20 Alcohol dependence, uncomplicated; G43.909 Migraine, unspecified, not intractable, without status migrainosus; F17.210 Nicotine dependence, cigarettes, uncomplicated; J45.909 Unspecified asthma, uncomplicated; I73.00 Raynaud's syndrome without gangrene; J31.0 Chronic rhinitis; D83.9 Common variable immunodeficiency, unspecified; Z79.891 Long term (current) use of opiate analgesic; Z79.899 Other long term (current) drug therapy; Z98.84 Bariatric surgery status; Z88.5 Allergy status to narcotic agent; Z88.8 Allergy status to other drugs, medicaments and biological substances

== ENCOUNTER → 2017-07-29 | Outpatient (CLI) | payer OTHER ==
[~2017-07-29] MED LIST changes: +BUPIVACAINE HCL 0.25% 30 ML VIAL As Ordered ONE; +ISOVUE-M 300 61% 15ML VIAL (Q9967) As Ordered ONE; +LIDOCAINE 1% SDV INJ 30 ML VIAL As Ordered ONE; +TRIAMCINOLONE ACETONIDE SUSP 40 MG/ML VIAL (J3301) As Ordered ONE; +diazePAM 5 MG TAB As Ordered ONE; +oxyCODONE 5MG TAB As Ordered ONE
--- NOTE | 2017-07-29 18:00 | REP ---
SI joint series: Four views. History: Bilateral SI joint injection for pain. 17 seconds of fluoroscopy time is reported. Findings: A sequence of four last image hold fluoroscopic spot radiographs of the SI joints document various needle positions and contrast injections for injection procedure. Signed by Moshe Carmona MD 07/30/2017 02:17 P
--- NOTE | 2017-07-29 23:28 | ECWPNPC ---
PATIENT NAME: ADELA ALMONTE : 1980 GENDER: FEMALE VISIT DATE: 07/29/2017 DISCHARGE DATE: 07/29/17 1336 VISIT LOCKED DATE TIME: PHYSICIAN: HARRISON ZEPEDA RESOURCE: HARRISON ZEPEDA REASON FOR APPOINTMENT 1. SIJ HISTORY OF PRESENT ILLNESS HISTORY OF PRESENT ILLNESS: PAIN THE PATIENT DESCRIBES THE PAIN... FALL RISK SCREENING: SCREENING :NO FALLS IN THE PAST YEAR CURRENT MEDICATIONS TAKING GAMMAGARD 10 % SOLUTION INTRAVENOUS EVERY 4 WEEKS, NOTES: 07-07-17799 TAKING MUPIROCIN CALCIUM 2 % CREAM 1 APPLICATION TO AFFECTED AREA EXTERNALLY NOSE GROIN AXILLA HEAD BID 1 WEEK, NOTES: 07-01-17799 TAKING AMERGE 1 MG TABLET 1 TAB(S) ORALLY DAILY NEEDED, NOTES: WEEK AGO TAKING IMITREX 4 MG/0.5ML SOLUTION 1 INJECTION NEEDED AT THE ONSET OF A MIGRAINE SUBCUTANEOUS REPEAT TIMES ONE IF NOT EFFECTIVE (DR JC), NOTES: WEEK AGO TAKING BUSPIRONE HCL 30 MG TABLET 1 TABLET ORALLY TWICE A DAY, NOTES: 07-28-172099 TAKING VYVANSE 70 MG CAPSULE 1 CAPSULE IN THE MORNING ORALLY ONCE A DAY, NOTES: 07-28-17799 TAKING ANTABUSE 500 MG TABLET 1 TABLET ORALLY ONCE A DAY, NOTES: 07-28-17899 TAKING NIFEDIPINE 20 MG CAPSULE 1 CAPSULE ORALLY DAILY, NOTES: 07-28-17899 TAKING ACETAMINOPHEN 500 MG CAPSULE 1 CAPSULES NEEDED ORALLY EVERY 6 HRS PRN, NOTES: 07-28-172299 TAKING ZOFRAN ODT 8 MG TABLET DISPERSIBLE 1 ORALLY BID PRN, NOTES: 07-28-171399 TAKING TRILEPTAL 300 MG TABLET 1 TABLET ORALLY TWICE A DAY, NOTES: 07-28-172099 TAKING FLUOCINONIDE 0.05 % SOLUTION APPLY 1 DROP EXTERNALLY TO EACH SCALP LESION BID, NOTES: A WEEK TAKING PHENERGAN 25 MG TABLET 1 TABLET ORALLY EVERY 6 HRS PRN NAUSEA, NOTES: 07-29-17599 TAKING OMEPRAZOLE 40 MG CAPSULE DELAYED RELEASE 1 CAPSULE ORALLY TWICE A DAY, NOTES: 07-28-172299 TAKING LATUDA 80 MG TABLET 1 TABLET WITH FOOD ORALLY ONCE A DAY, NOTES: 07-28-172099 TAKING PERCOCET 5-325 MG TABLET 1 TABLETS ORALLY EVERY 4 HRS PRN PAIN MDD=5, NOTES: 07-28-17 2300 TAKING TIZANIDINE HCL 2 MG TABLET 1 TABLET NEEDED ORALLY FOR SPASMS AND PAIN BEFORE BEDTIME MAY REPEAT IN 4 HRS MDD2, NOTES: 07-28-17 2100 NOT-TAKING BUTRANS 5 MCG/HR PATCH WEEKLY 1 PATCH TO SKIN TRANSDERMAL WEEKLY, NOTES: HASNT GOT THE MED YET NOT-TAKING PROTONIX 40 MG TABLET DELAYED RELEASE 1 TABLET ORALLY ONCE A DAY UNKNOWN LYRICA 225 MG CAPSULE 1 CAPSULE ORALLY Q 8 HRS MDD=3, NOTES: A WEEK MEDICATION LIST REVIEWED AND RECONCILED WITH THE PATIENT PAST MEDICAL HISTORY HYPERLIPIDEMIA (RESOLVED WITH GASTRIC BYPASS) MENOPAUSE CHRONIC NECK/MID/LOW BACK PAIN PEPTIC ULCER DISEASE, S/P GASTRIC BYPASS BIPOLAR, ANXIETY, DEPRESSION ALCOHOLISM MIGRAINE HEADACHES TOBACCO USE ADD CHRONIC RHINITIS/SINUSITIS RAYNAUD'S SYNDROME COMMON VARIABLE AUTOIMMUNE DEFICIENCY DISEASE ASTHMA ALLERGIES MORPHINE: HIVES: ALLERGY LATEX: HIVES: ALLERGY DILAUDID: HIVES: ALLERGY REGLAN: HIVES: ALLERGY LAMICTAL: HIVES: ALLERGY DEPAKOTE: CONFUSION: CONTRAINDICATION RISPERDAL: SUICIDAL IDEATION: ALLERGY KETOROLAC TROMETHAMINE: ANAPHYLAXIS: ALLERGY GASTROGRAFIN: HIVES: ALLERGY MUSCLE RELAXERS: ALTERED MENTAL STATUS: SIDE EFFECTS REVIEW OF SYSTEMS REVIEWED BY: PROVIDER: . CONSTITUTIONAL: ANY CHANGE IN YOUR MEDICAL CONDITION? NO . CHILLS NO . FEVER NO . INFECTION: DO YOU HAVE NEW INFECTIONS? NO . DO YOU HAVE HISTORY OF MRSA? NO . MUSCULOSKELETAL: ANY NEW PATTERNS OF PAIN OR NUMBNESS? NO . GASTROENTEROLOGY: ANY NEW CHANGE IN BOWEL CONTROL? NO . GENITOURINARY: ANY NEW CHANGE IN BLADDER CONTROL? NO . IS THERE A CHANCE YOU COULD BE ? NO . HEMATOLOGY/LYMPH: DO YOU TAKE ANY BLOOD THINNERS? (FOR EXAMPLE- COUMADIN, PLAVIX, AGGRENOX, PLATEL, PRADAXA, OR XARELTO) NO . WHEN WAS YOUR LAST DOSE? DATE: TIME: . NEUROLOGY: HAVE YOU FALLEN IN THE PAST 6 MONTHS? NO . ANY NEW EXTREMITY NUMBNESS OR WEAKNESS? NO . CARDIOLOGY: DO YOU HAVE A PACEMAKER OR DEFIBRILLATOR? NO . RESPIRATORY: HAVE YOU BEEN SICK IN THE PAST WEEK? NO . FEVER NO . FLU LIKE SYMPTOMS? NO . COUGH NO . INTEGUMENTARY: DO YOU HAVE ANY RASHES OR OPEN SORES? NO . ALLERGIC/IMMUNO: ARE YOU ALLERGIC TO SHELLFISH OR IV DYE? NO . ANY NEW ALLERGIES? NO . PSYCHIATRIC: DO YOU HAVE THOUGHTS OF HURTING YOURSELF OR SOMEONE ELSE? NO . ARE YOU ABUSED, NEGLECTED, OR IN AN UNSAFE ENVIRONMENT? NO . ENDOCRINOLOGY: ARE YOU DIABETIC? NO . OTHER: DO YOU NEED ANY PRESCRIPTIONS? NO . IF YES, PLEASE LIST: ____ . ANY NEW PROBLEMS WITH YOUR MEDICATIONS? NO . WHEN DID YOU LAST EAT? ____8 PM LAST NIGHT . WHEN DID YOU LAST DRINK? ____0500 THIS MORNING . WHAT DID YOU LAST DRINK? ____WATER . NAME OF PERSON DRIVING YOU HOME? ____[employer] . DO YOU HAVE ANY OTHER QUESTIONS OR CONCERNS NO . VITAL SIGNS WT 192 LBS, HT 67 IN, BMI 30.07 INDEX, BP 149/92 MM HG, HR 117 /MIN, RR 18 /MIN, TEMP 97.8 F, OXYGEN SAT % 98%, NA INITIALS SC 11:35, REVIEWED BY: KG. ASSESSMENTS SACROILIITIS, NOT ELSEWHERE CLASSIFIED - M46.1 (PRIMARY) TREATMENT OTHERS REFILL BUTRANS PATCH WEEKLY, 5 MCG/HR, 1 PATCH TO SKIN, TRANSDERMAL, WEEKLY, 30 DAY(S), 4, REFILLS 0, NOTES: HASNT GOT THE MED YET PROCEDURES PN SI PRE PROCEDURE DIAGNOSIS SACROILIITIS, SACROILIAC JOINT DYSFUNCTION POST PROCEDURE DIAGNOSIS SACROILIITIS, SACROILIAC JOINT DYSFUNCTION PROCEDURE BILATERAL SACROILIAC JOINT BLOCK SURGEON DR. HARRISON ZEPEDA POWDER NIPPER NONE ANESTHESIA LOCAL PRE PROCEDURE NOTE PATIENT WITH HISTORY OF CHRONIC LOW BACK PAIN. I EVALUATED THE PATIENT AND REVIEWED THE CHART. I WENT OVER THE RISKS, ALTERNATIVES, AND BENEFITS ASSOCIATED WITH THIS PROCEDURE. THE PATIENT WOULD LIKE TO PROCEED AND GAVE CONSENT TO PERFORM THE PROCEDURE. THE PATIENT DENIES UNEXPLAINABLE WEIGHT LOSS, FEVER, CHILLS, OR NEW CHANGES IN URINARY OR BOWEL CONTROL DESCRIPTION OF PROCEDURE THE PATIENT WAS BROUGHT TO THE PROCEDURE ROOM AND PLACED IN THE PRONE POSITION. THE LUMBOSACRAL AREA WAS CLEANED WITH CHLORAPREP SOLUTION AND DRAPED ASEPTICALLY. THE PROCEDURE WAS DONE UNDER STERILE CONDITIONS. I CHECKED LATERALITY AND THE LEVEL WHERE THE PROCEDURE WAS GOING TO BE PERFORMED WITH THE PATIENT AND THE SUPPORTING STAFF AT THE MOMENT OF THE TIME OUT IN THE PROCEDURE ROOM. UNDER FLUOROSCOPIC GUIDANCE, TARGET POINT WAS SELECTED AT THE LOWER BORDER OF THE RIGHT AND LEFT SACROILIAC JOINT. TARGET POINT WAS SELECTED AFTER MEDIAL ROTATION AND TILT OF THE MAGNIFIER OF THE C-ARM. LIDOCAINE WAS USED TO NUMB THE SKIN AND SUBCUTANEOUS TISSUE BELOW IT. A SPINAL NEEDLE, 22-GAUGE, WAS ADVANCED UNDER FLUOROSCOPIC GUIDANCE AND FOLLOWING PATIENT FEEDBACK UNTIL THE TARGET AREA WAS TOUCHED. THE POSITION OF THE NEEDLE WAS VERIFIED WITH AP AND LATERAL VIEWS. AFTER PROPER POSITION OF THE NEEDLE WAS ACHIEVED, ISOVUE M DYE 30%, 0.25 ML, WAS INJECTED SHOWING SPREAD OF THE DYE. THEN, A SOLUTION OF 20 MG OF KENALOG WAS INJECTED IN RIGHT JOINT WITH 3 ML OF BUPIVACAINE 0.125%. THERE WAS NO EVIDENCE OF BLOOD, PARESTHESIA OR CEREBROSPINAL FLUID DURING THE PROCEDURE. THE PATIENT WAS SENT TO THE RECOVERY ROOM. THE PATIENT WAS MOVING THE EXTREMITIES AND DOING WELL. THERE WAS NO COMPLICATION DURING THE PROCEDURE. FLUOROSCOPY TIME WAS 17 SECONDS POST PROCEDURE NOTE THE PATIENT WILL BE SEEN IN A FOLLOW UP IN THE NEXT FEW WEEKS. INSTRUCTIONS WERE GIVEN, QUESTIONS WERE ANSWERED, AND THE PATIENT EXPRESSED UNDERSTANDING AND AGREED WITH THE PLAN. I, MACHELLE PRAJAPATI, DOCUMENTED THE ABOVE INFORMATION ACTING A SCRIBE FOR DR. ZEPEDA. I HAVE REVIEWED THE ABOVE DOCUMENT, WRITTEN BY MACHELLE KAISERIBKarissa AND I VERIFY THAT IT IS ACCURATE DIAGNOSTIC IMAGING [facility] FLUORO GUIDANCE (PAIN)[id number] PROCEDURE CODES 34514 INJECT SACROILIAC JOINT, MODIFIERS: 50 6045F RADXPS IN END [id number] PXD DISPOSITION & COMMUNICATION FOLLOW UP 3 WEEKS ELECTRONICALLY SIGNED BY HARRISON ZEPEDA MD ON 07/29/2017 AT 05:48 PM EDT DISCLAIMER : THIS IS A VISIT SUMMARY EXTRACTED FROM THE [employer] CHART. IT IS NOT A COPY OF THE [employer] PROGRESS NOTE. MTDD
== END ==
LOC: M PAIN 11:30
PROVIDERS: ATTEND Anesthesiology
DX: G89.29 Other chronic pain (principal); M46.1 Sacroiliitis, not elsewhere classified; M53.88 Other specified dorsopathies, sacral and sacrococcygeal region; D83.9 Common variable immunodeficiency, unspecified; F31.9 Bipolar disorder, unspecified; F41.9 Anxiety disorder, unspecified; F10.21 Alcohol dependence, in remission; I73.00 Raynaud's syndrome without gangrene; D50.9 Iron deficiency anemia, unspecified; J30.89 Other allergic rhinitis; Z88.5 Allergy status to narcotic agent; Z91.040 Latex allergy status; Z88.8 Allergy status to other drugs, medicaments and biological substances; Z79.891 Long term (current) use of opiate analgesic; Z79.899 Other long term (current) drug therapy
CPT/HCPCS: 27096; J3301; Q9967

== ENCOUNTER → 2017-08-08 | Outpatient (CLI) | payer OTHER ==
[~2017-08-08] MED LIST changes: -BUPIVACAINE HCL 0.25% 30 ML VIAL As Ordered ONE; -ISOVUE-M 300 61% 15ML VIAL (Q9967) As Ordered ONE; -LIDOCAINE 1% SDV INJ 30 ML VIAL As Ordered ONE; -TRIAMCINOLONE ACETONIDE SUSP 40 MG/ML VIAL (J3301) As Ordered ONE; -diazePAM 5 MG TAB As Ordered ONE; -oxyCODONE 5MG TAB As Ordered ONE
--- NOTE | 2017-08-24 23:48 | ECWPNPC ---
PATIENT NAME: ADELA ALMONTE : 1980 GENDER: FEMALE VISIT DATE: 08/08/2017 DISCHARGE DATE: 08/08/17 1423 VISIT LOCKED DATE TIME: PHYSICIAN: HARRISON ZEPEDA RESOURCE: HARRISON ZEPEDA REASON FOR APPOINTMENT 1. LOW BACK PAIN HISTORY OF PRESENT ILLNESS HISTORY OF PRESENT ILLNESS: PAIN THE PATIENT DESCRIBES THE PAIN... 37 YEAR OLD FEMALE PATIENT WITH HISTORY OF CHRONIC BACK PAIN. PATIENT DESCRIBES THE PAIN ACHING, BURNING, SHARP, STABBING, TENDER, THROBBING, SORE, SHOOTING AND HAVING IT ALL THE TIME WITH A PAIN SCORE OF 7/10. PATIENT HAS A HISTORY OF TWO BACK SURGERIES ONE IN 1997 AND ONE IN 2008. PATIENT REPORTS UNABLE TO USE IBUPROFEN DUE TO GASTRIC BYPASS. PATIENT TRIED GABAPENTIN FOR SEVERAL MONTHS WITH NO RELIEF, LYRICA AIDS WITH THE TINGLY IN HER FEET BUT DOES NOT AID IN PAIN RELIEF FOR THE BACK, AND ELAVIL DID NOT AID THE PATIENT WITH PAIN RELIEF. AT THIS TIME THE PATIENT IS USING CYCLOBENZAPRINE, LYRICA AND PERCOCET AND STATES THAT SHE STILL HAS SEVERE PAIN WITH THE MEDICATION. PATIENT RECEIVED A SACROILIAC JOINT INJECTION ON 07/29/17 AND STATES THAT SHE HAD OVER 50% RELIEF FROM THE INJECTION WITH INCREASED MOBILITY AND FUNCTIONALITY FOR A SHORT PERIOD OF TIME. PATIENT STATES THAT SHE WAS ABLE TO DECREASE THE USE OF THE PERCOCET DUE TO THE INJECTION. PATIENT DENIES UNEXPLAINABLE WEIGHT LOSS, FEVER, CHILLS, NEW CHANGES ON HER URINARY OR BOWEL CONTROL. FALL RISK SCREENING: SCREENING :NO FALLS IN THE PAST YEAR CURRENT MEDICATIONS TAKING GAMMAGARD 10 % SOLUTION INTRAVENOUS EVERY 4 WEEKS TAKING MUPIROCIN CALCIUM 2 % CREAM 1 APPLICATION TO AFFECTED AREA EXTERNALLY NOSE GROIN AXILLA HEAD BID 1 WEEK TAKING AMERGE 1 MG TABLET 1 TAB(S) ORALLY DAILY NEEDED TAKING IMITREX 4 MG/0.5ML SOLUTION 1 INJECTION NEEDED AT THE ONSET OF A MIGRAINE SUBCUTANEOUS REPEAT TIMES ONE IF NOT EFFECTIVE (DR JC) TAKING BUSPIRONE HCL 30 MG TABLET 1 TABLET ORALLY TWICE A DAY TAKING VYVANSE 70 MG CAPSULE 1 CAPSULE IN THE MORNING ORALLY ONCE A DAY TAKING ANTABUSE 500 MG TABLET 1 TABLET ORALLY ONCE A DAY TAKING ACETAMINOPHEN 500 MG CAPSULE 1 CAPSULES NEEDED ORALLY EVERY 6 HRS PRN TAKING ZOFRAN ODT 8 MG TABLET DISPERSIBLE 1 ORALLY BID PRN TAKING TRILEPTAL 300 MG TABLET 1 TABLET ORALLY TWICE A DAY TAKING FLUOCINONIDE 0.05 % SOLUTION APPLY 1 DROP EXTERNALLY TO EACH SCALP LESION BID TAKING OMEPRAZOLE 40 MG CAPSULE DELAYED RELEASE 1 CAPSULE ORALLY TWICE A DAY TAKING TIZANIDINE HCL 2 MG TABLET 1 TABLET NEEDED ORALLY FOR SPASMS AND PAIN BEFORE BEDTIME MAY REPEAT IN 4 HRS MDD2 TAKING PHENERGAN 25 MG TABLET 1 TABLET ORALLY EVERY 6 HRS PRN NAUSEA TAKING NIFEDIPINE 30 MG TABLET EXTENDED RELEASE DIRECTED ORALLY DAILY TAKING LAMISIL 250 MG TABLET 1 TABLET ORALLY ONCE A DAY TAKING VENTOLIN HFA 108 (90 BASE) MCG/ACT AEROSOL SOLUTION 2 PUFFS NEEDED INHALATION EVERY 4 HRS PRN TAKING NICORETTE 4 MG GUM 1 PIECE NEEDED MOUTH/THROAT Q 2-4 HOURS MDD=12 TAKING VRAYLAR 3 MG CAPSULE 1 CAPSULE ORALLY ONCE A DAY NOT-TAKING LATUDA 80 MG TABLET 1 TABLET WITH FOOD ORALLY ONCE A DAY NOT-TAKING PERCOCET 5-325 MG TABLET 1 TABLETS ORALLY EVERY 4 HRS PRN PAIN MDD=5 NOT-TAKING BUTRANS 5 MCG/HR PATCH WEEKLY 1 PATCH TO SKIN TRANSDERMAL WEEKLY NOT-TAKING LYRICA 225 MG CAPSULE 1 CAPSULE ORALLY Q 8 HRS MDD=3 UNKNOWN PROTONIX 40 MG TABLET DELAYED RELEASE 1 TABLET ORALLY ONCE A DAY MEDICATION LIST REVIEWED AND RECONCILED WITH THE PATIENT PAST MEDICAL HISTORY HYPERLIPIDEMIA (RESOLVED WITH GASTRIC BYPASS) MENOPAUSE CHRONIC NECK/MID/LOW BACK PAIN PEPTIC ULCER DISEASE, S/P GASTRIC BYPASS BIPOLAR, ANXIETY, DEPRESSION ALCOHOLISM MIGRAINE HEADACHES TOBACCO USE ADD CHRONIC RHINITIS/SINUSITIS 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 CRISTOBAL CHOLECYSTECTOMY 07/13 [facility] W/ AGUDELO, APPENDECTOMY 12/13 GASTRIC BYPASS (DR. CARTAGENA, [facility]) 01/2012 LAPAROSCOPY AND REMOVAL OF ADHESIONS (DR. BARRERA) 12/2012 CHEST TUBE ENDOSCOPY/COLONOSCOPY BLOOD TRANSFUSION BLADDER REPAIR 10/2016 SOCIAL HISTORY GENERAL: TOBACCO USE ARE YOU A:CURRENT SMOKER ARE YOU INTERESTED IN QUITTING?THINKING ABOUT QUITTING GOING TO ASK PRIMARY FOR CHANTIX PREVIOUS QUIT ATTEMPTS?YES, WITHIN THE LAST 6 MONTHS. HAD QUIT FOR 4 MONTHS AND JUST STARTED SMOKING AGAIN APPROX. 2 MONTHS AGO. COUNSELED THE PATIENT ON SMOKING CESSATION, EDUCATION [id number]/26/2017 HOW MANY CIGARETTES A DAY DO YOU SMOKE?6-10 HOW SOON AFTER YOU WAKE UP DO YOU SMOKE YOUR FIRST CIGARETTE?AFTER 60 MIN HOW OFTEN DO YOU SMOKE CIGARETTES?EVERY DAY PATIENT COUNSELED ON THE DANGERS OF TOBACCO USE AND URGED TO QUIT:07/31/2017 NO EDUCATION MATERIAL WANTED FOR SMOKING LUNG CANCER SCREENING SMOKING STATUS:CURRENT SMOKER BMI CARE GOAL FOLLOW-UP ABOVE NORMAL BMI FOLLOW-UPDIETARY MANAGEMENT EDUCATION, GUIDANCE, AND COUNSELING, DIETARY NEEDS EDUCATION, EXERCISE PROMOTION: STRENGTH TRAINING ALCOHOL SCREENING DID YOU HAVE A DRINK CONTAINING ALCOHOL IN THE PAST YEAR?NO POINTS0 INTERPRETATIONNEGATIVE RECREATIONAL DRUG USE DRUG USE?NO CAFFEINE CAFFEINE USE?YES 2-3 CUPS COFFEE & ICED TEA THROUGH THE DAY. SEXUAL HX HAD SEX IN THE LAST 12 MONTHS (VAGINAL, ORAL, OR ANAL)?NO HAVE YOU EVER HAD AN STD?NO LMP:2009 HIV / HEP-C SCREENING HIV TEST OFFERED TO PATIENT:YES DATE OFFERED:03/13/2017 TEST ACCEPTED:NO REASON:PATIENT DECLINED HEP-C TEST OFFERED TO PATIENT:NO OCCUPATION: UNEMPLOYED. DIET: REGULAR. EXERCISE: NO REGULAR EXERCISE. MARITAL STATUS: SINGLE. SPIRITISM [id number] SIKH LANGUAGE LANGUAGES SPOKEN:SUDANESE EDUCATION LEVEL OF EDUCATION:NOT FINISHED COLLEGE LEARNING BARRIERS / SPECIAL NEEDS CHANGE FROM LAST VISIT?NO BARRIERS TO LEARNING?NO HEARING IMPAIRED?NO VISION IMPAIRED?NO COGNITIVELY IMPAIRED?NO READINESS TO LEARN?YES LEARNING PREFERENCES?NO LEARNING CAPABILITIES PRESENT?YES EMOTIONAL BARRIERS?NO SPECIAL DEVICES?NO CENTERLESS GRINDER NEEDED?NO PAIN CLINIC PFS, CLERGY, PUBLIC HEALTH REFERRALS WAS THE PROVIDER NOTIFIED OF ANY PERTINENT INFO?YES HAS THE PATIENT BEEN EDUCATED REGARDING HIS/HER PLAN OF CARE?YES HAS THE PATIENT BEEN EDUCATED REGARDING PAIN, THE RISK FOR PAIN, THE IMPORTANCE OF EFFECTIVE PAIN MANAGEMENT, AND THE PAIN ASSESSMENT PROCESS?YES PATIENT: ____. TRAVEL OUTSIDE US: NO. DOMESTIC VIOLENCE DO YOU FEEL SAFE IN YOUR ENVIRONMENT?YES HOSPITALIZATION/MAJOR DIAGNOSTIC PROCEDURE SURGERY RELATED [facility] ([facility]) 05/2012 ADMITTED TO [facility] 12/2015 [facility] 10/2015 REVIEW OF SYSTEMS REVIEWED BY: PROVIDER: HARRISON ZEPEDA MD . CONSTITUTIONAL: ANY CHANGE IN YOUR MEDICAL CONDITION? NO . CHILLS NO . FEVER NO . INFECTION: DO YOU HAVE NEW INFECTIONS? NO . DO YOU HAVE HISTORY OF MRSA? NO . MUSCULOSKELETAL: ANY NEW PATTERNS OF PAIN OR NUMBNESS? NO . GASTROENTEROLOGY: ANY NEW CHANGE IN BOWEL CONTROL? NO . GENITOURINARY: ANY NEW CHANGE IN BLADDER CONTROL? NO . IS THERE A CHANCE YOU COULD BE ? NO . HEMATOLOGY/LYMPH: DO YOU TAKE ANY BLOOD THINNERS? (FOR EXAMPLE- COUMADIN, PLAVIX, AGGRENOX, PLATEL, PRADAXA, OR XARELTO) NO . WHEN WAS YOUR LAST DOSE? DATE: TIME: . NEUROLOGY: HAVE YOU FALLEN IN THE PAST 6 MONTHS? NO . ANY NEW EXTREMITY NUMBNESS OR WEAKNESS? NO . CARDIOLOGY: DO YOU HAVE A PACEMAKER OR DEFIBRILLATOR? NO . RESPIRATORY: HAVE YOU BEEN SICK IN THE PAST WEEK? YES, COLD S/S . FEVER NO . FLU LIKE SYMPTOMS? NO . COUGH NO . INTEGUMENTARY: DO YOU HAVE ANY RASHES OR OPEN SORES? NO . ALLERGIC/IMMUNO: ARE YOU ALLERGIC TO SHELLFISH OR IV DYE? NO . ANY NEW ALLERGIES? NO . PSYCHIATRIC: DO YOU HAVE THOUGHTS OF HURTING YOURSELF OR SOMEONE ELSE? NO . ARE YOU ABUSED, NEGLECTED, OR IN AN UNSAFE ENVIRONMENT? NO . ENDOCRINOLOGY: ARE YOU DIABETIC? NO . OTHER: DO YOU NEED ANY PRESCRIPTIONS? NO . IF YES, PLEASE LIST: ____ . ANY NEW PROBLEMS WITH YOUR MEDICATIONS? NO . WHEN DID YOU LAST EAT? ____ . WHEN DID YOU LAST DRINK? ____ . WHAT DID YOU LAST DRINK? ____ . NAME OF PERSON DRIVING YOU HOME? ____ . DO YOU HAVE ANY OTHER QUESTIONS OR CONCERNS NO . VITAL SIGNS WT 200 LBS, HT 67 IN, BMI 31.32 INDEX, BP 140/104 MM HG, REPEAT BP 158/102 MM HG, HR 120 /MIN, RR 18 /MIN, TEMP 96.7 F, OXYGEN SAT % 99%, NA INITIALS SC 13:27RN IS GOING TO DO A MANUAL BP ON PT. MANUAL DONE AND REPORTED TO DR ZEPEDA. EM. EXAMINATION : PATIENT IS ALERT O X 3 AND COOPERATIVE. TENDERNESS IN LOWER BACK AND PARASPINAL MUSCLE GROUP. LIMPING FROM THE RIGHT LEG. RIGHT LEG WEAKER THEN THE LEFT AT EXTENSION AND FLEXION. MRI DONE ON 09/04/16 OF THE LUMBAR SPINE SHOWS POSTOPERATIVE CHANGES AND NEURAL FORAMINAL NARROWING AT L4-L5. ASSESSMENTS LUMBAR POST-LAMINECTOMY SYNDROME - M96.1 (PRIMARY) SACROILIITIS, NOT ELSEWHERE CLASSIFIED - M46.1 INTERVERTEBRAL DISC DISORDER WITH RADICULOPATHY OF LUMBAR REGION - M51.16 INTERVERTEBRAL DISC DISORDER WITH RADICULOPATHY OF LUMBOSACRAL REGION - M51.17 TREATMENT LUMBAR POST-LAMINECTOMY SYNDROME REFILL LYRICA CAPSULE, 225 MG, 1 CAPSULE, ORALLY, Q 8 HRS MDD=3, 30 DAY(S), 90, REFILLS 0 NOTES: FACET JOINT INJECTION: YOUR EXPERIENCE MATERIAL WAS PRINTED. CLINICAL NOTES: WE DISCUSSED SEVERAL ISSUES WITH MRS. ALMONTE'S PAIN MANAGEMENT CASE. AT THIS TIME THE PATIENT WILL CONTINUE WITH THE SAME MEDICATION REGIME. I WOULD LIKE THE PATIENT TO START THE BUTRANS' PATCH FOR THE SOMATIC PAIN. 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 PATIENT DENIES ABUSE OF THE MEDICATION, DENIES USE OF ILLEGAL SUBSTANCES, AND STATES SHE IS ONLY USING THE MEDICATION FOR PAIN MANAGEMENT. URINE TOXICOLOGY REPORT DONE ON 07/25/2017 SHOWS CONSISTENT RESULTS. DUE TO THE SACROILIAC JOINT BLOCK NOT AIDING THE PATIENT IN LONG LASTING RELIEF I WOULD LIKE TO MOVE FORWARD WITH A DIAGNOSTIC TEST TO CONSIDER RADIOFREQUENCY. WE DISCUSSED THAT THE PATIENT WOULD NEED TO HAVE TWO DIAGNOSTIC TESTS WITH ADEQUATE RESULTS TO PROCEED WITH THE RADIOFREQUENCY. WE DISCUSSED THE RISKS, BENENFITS, AND ALTNERATIVES TO THE INJECTION AND THE PATIENT WOULD LIKE TO PROCEED. INSTRUCTIONS WERE GIVEN, QUESTIONS WERE ANSWERED, PATIENT REPORTS UNDERSTANDING AND AGREES WITH THE PLAN. I, MACHELLE PRAJAPATI, DOCUMENTED THE ABOVE INFORMATION ACTING A SCRIBE FOR DR. ZEPEDA. I HAVE REVIEWED THE ABOVE DOCUMENT, WRITTEN BY MACHELLE NUÑEZ AND I VERIFY THAT IT IS ACCURATE. OTHERS REFILL PERCOCET TABLET, 5-325 MG, 1 TABLETS, ORALLY, EVERY 4 HRS PRN PAIN MDD=5, 30 DAY(S), 135, REFILLS 0 CONTINUE TIZANIDINE HCL TABLET, 2 MG, 1 TABLET NEEDED, ORALLY FOR SPASMS AND PAIN, BEFORE BEDTIME MAY REPEAT IN 4 HRS MDD2, 30 DAY(S), 60, REFILLS 1 START BUTRANS PATCH WEEKLY, 5 MCG/HR, 1 PATCH TO SKIN, TRANSDERMAL, WEEKLY, 30 DAY(S), 4, REFILLS 0 PREVENTIVE MEDICINE PAIN CLINIC TEACHING: PROCEDURE TEACHING REVIEWED DIAGNOSTIC FACET BLOCKS WITH PATIENT INCLUDING NOT TO TAKE PAIN MEDS OR MUSCLE RELAXERS AFTER MIDNIGHT. PT. VERBALIZED UNDERSTANDING. CM. PROCEDURE CODES FA211 ESTABILISHED PATIENT [facility] CHARGE [id number] DOC MEDS VERIFIED W/PT OR RE G1654 PAIN ASSESS POS TOOL F/U PLAN DOC DISPOSITION & COMMUNICATION FOLLOW UP LFBD AFTER APPROVAL ELECTRONICALLY SIGNED BY HARRISON ZEPEDA MD ON 08/24/2017 AT 08:36 PM EST DISCLAIMER : THIS IS A VISIT SUMMARY EXTRACTED FROM THE [employer] CHART. IT IS NOT A COPY OF THE [employer] PROGRESS NOTE. GELACIO
== END | disposition home or self-care (01) ==
LOC: M PAIN 13:45
PROVIDERS: ATTEND Anesthesiology
DX: G89.29 Other chronic pain (principal); M96.1 Postlaminectomy syndrome, not elsewhere classified; M46.1 Sacroiliitis, not elsewhere classified; M51.16 Intervertebral disc disorders with radiculopathy, lumbar region; M51.17 Intervertebral disc disorders with radiculopathy, lumbosacral region; Z98.84 Bariatric surgery status; Z78.0 Asymptomatic menopausal state; F31.9 Bipolar disorder, unspecified; F10.10 Alcohol abuse, uncomplicated; G43.909 Migraine, unspecified, not intractable, without status migrainosus; F90.9 Attention-deficit hyperactivity disorder, unspecified type; J32.9 Chronic sinusitis, unspecified; J45.909 Unspecified asthma, uncomplicated; D83.9 Common variable immunodeficiency, unspecified; I73.00 Raynaud's syndrome without gangrene; Z79.899 Other long term (current) drug therapy; Z88.5 Allergy status to narcotic agent; Z88.8 Allergy status to other drugs, medicaments and biological substances; Z91.040 Latex allergy status; F17.210 Nicotine dependence, cigarettes, uncomplicated

== ENCOUNTER → 2017-08-12 | Outpatient (CLI) | payer OTHER ==
[~2017-08-12] MED LIST changes: +BUPIVACAINE HCL 0.25% 30 ML VIAL As Ordered ONE; +ISOVUE-M 300 61% 15ML VIAL (Q9967) As Ordered ONE; +LIDOCAINE 1% SDV INJ 30 ML VIAL As Ordered ONE
--- NOTE | 2017-08-12 14:20 | REP ---
FLUOROSCOPIC GUIDANCE FOR LUMBAR FACET BLOCK: 08/12/2017. Clinical history: Back pain. Findings: Three images from C-arm fluoroscopy provided to Dr. magan Mc of the pain clinic for right-sided lumbar facet block. A PA and two oblique images were performed with three levels injected and contrast seen at the all three levels adjacent to the needle tips on the prior image. Fluoroscopy time: 24 seconds. Signed by Ted Mejía MD 08/12/2017 02:11 P
--- NOTE | 2017-08-17 23:33 | ECWPNPC ---
PATIENT NAME: ADELA ALMONTE : 1980 GENDER: FEMALE VISIT DATE: 08/12/2017 DISCHARGE DATE: 08/12/17 1340 VISIT LOCKED DATE TIME: PHYSICIAN: HARRISON ZEPEDA RESOURCE: HARRISON ZEPEDA REASON FOR APPOINTMENT 1. LFBD #1 HISTORY OF PRESENT ILLNESS HISTORY OF PRESENT ILLNESS: PAIN THE PATIENT DESCRIBES THE PAIN... FALL RISK SCREENING: SCREENING :NO FALLS IN THE PAST YEAR CURRENT MEDICATIONS TAKING GAMMAGARD 10 % SOLUTION INTRAVENOUS EVERY 4 WEEKS, NOTES: 08-04-17 TAKING MUPIROCIN CALCIUM 2 % CREAM 1 APPLICATION TO AFFECTED AREA EXTERNALLY NOSE GROIN AXILLA HEAD BID 1 WEEK, NOTES: NONE RECENT TAKING AMERGE 1 MG TABLET 1 TAB(S) ORALLY DAILY NEEDED, NOTES: 08-09-17 TAKING IMITREX 4 MG/0.5ML SOLUTION 1 INJECTION NEEDED AT THE ONSET OF A MIGRAINE SUBCUTANEOUS REPEAT TIMES ONE IF NOT EFFECTIVE (DR JC), NOTES: 08-08-17 TAKING BUSPIRONE HCL 30 MG TABLET 1 TABLET ORALLY TWICE A DAY, NOTES: 08-12-17499 TAKING VYVANSE 70 MG CAPSULE 1 CAPSULE IN THE MORNING ORALLY ONCE A DAY, NOTES: 08-12-17499 TAKING ANTABUSE 500 MG TABLET 1 TABLET ORALLY ONCE A DAY, NOTES: 08-12-17499 TAKING ACETAMINOPHEN 500 MG CAPSULE 1 CAPSULES NEEDED ORALLY EVERY 6 HRS PRN, NOTES: 08-12-17499 TAKING ZOFRAN ODT 8 MG TABLET DISPERSIBLE 1 ORALLY BID PRN, NOTES: 08-11-17 2100 TAKING TRILEPTAL 300 MG TABLET 1 TABLET ORALLY TWICE A DAY, NOTES: 08-12-17499 TAKING FLUOCINONIDE 0.05 % SOLUTION APPLY 1 DROP EXTERNALLY TO EACH SCALP LESION BID, NOTES: 08-11-17 TAKING OMEPRAZOLE 40 MG CAPSULE DELAYED RELEASE 1 CAPSULE ORALLY TWICE A DAY, NOTES: 08-12-17499 TAKING PHENERGAN 25 MG TABLET 1 TABLET ORALLY EVERY 6 HRS PRN NAUSEA, NOTES: 08-12-17499 TAKING NIFEDIPINE 30 MG TABLET EXTENDED RELEASE DIRECTED ORALLY DAILY, NOTES: 08-12-17499 TAKING LAMISIL 250 MG TABLET 1 TABLET ORALLY ONCE A DAY, NOTES: 08-12-17499 TAKING VENTOLIN HFA 108 (90 BASE) MCG/ACT AEROSOL SOLUTION 2 PUFFS NEEDED INHALATION EVERY 4 HRS PRN, NOTES: 08-12-17 0500 TAKING NICORETTE 4 MG GUM 1 PIECE NEEDED MOUTH/THROAT Q 2-4 HOURS MDD=12, NOTES: NONE TODAY TAKING VRAYLAR 3 MG CAPSULE 1 CAPSULE ORALLY ONCE A DAY, NOTES: 08-11-172099 TAKING PERCOCET 5-325 MG TABLET 1 TABLETS ORALLY EVERY 4 HRS PRN PAIN MDD=5, NOTES: 08-11-172099 TAKING TIZANIDINE HCL 2 MG TABLET 1 TABLET NEEDED ORALLY FOR SPASMS AND PAIN BEFORE BEDTIME MAY REPEAT IN 4 HRS MDD2, NOTES: 08-11-172099 TAKING PROTONIX 40 MG TABLET DELAYED RELEASE 1 TABLET ORALLY ONCE A DAY, NOTES: 08-11-172099 NOT-TAKING LYRICA 225 MG CAPSULE 1 CAPSULE ORALLY Q 8 HRS MDD=3, NOTES: NONE RECENT NOT-TAKING BUTRANS 5 MCG/HR PATCH WEEKLY 1 PATCH TO SKIN TRANSDERMAL WEEKLY, NOTES: DOES NOT HAVE DISCONTINUED LATUDA 80 MG TABLET 1 TABLET WITH FOOD ORALLY ONCE A DAY DISCONTINUED BUTRANS 5 MCG/HR PATCH WEEKLY 1 PATCH TO SKIN TRANSDERMAL WEEKLY MEDICATION LIST REVIEWED AND RECONCILED WITH THE PATIENT PAST MEDICAL HISTORY HYPERLIPIDEMIA (RESOLVED WITH GASTRIC BYPASS) MENOPAUSE CHRONIC NECK/MID/LOW BACK PAIN PEPTIC ULCER DISEASE, S/P GASTRIC BYPASS BIPOLAR, ANXIETY, DEPRESSION ALCOHOLISM MIGRAINE HEADACHES TOBACCO USE ADD CHRONIC RHINITIS/SINUSITIS 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 HAD QUIT FOR 4 MONTHS AND JUST STARTED SMOKING AGAIN APPROX. 2 MONTHS AGO. COUNSELED THE PATIENT ON SMOKING CESSATION, EDUCATION [id number]/26/2017 HOW MANY CIGARETTES A DAY DO YOU SMOKE?6-10 HOW SOON AFTER YOU WAKE UP DO YOU SMOKE YOUR FIRST CIGARETTE?AFTER 60 MIN HOW OFTEN DO YOU SMOKE CIGARETTES?EVERY DAY PATIENT COUNSELED ON THE DANGERS OF TOBACCO USE AND URGED TO QUIT:07/31/2017 NO EDUCATION MATERIAL WANTED FOR SMOKING LUNG CANCER SCREENING SMOKING STATUS:CURRENT SMOKER BMI CARE GOAL FOLLOW-UP ABOVE NORMAL BMI FOLLOW-UPDIETARY MANAGEMENT EDUCATION, GUIDANCE, AND COUNSELING, DIETARY NEEDS EDUCATION, EXERCISE PROMOTION: STRENGTH TRAINING ALCOHOL SCREENING DID YOU HAVE A DRINK CONTAINING ALCOHOL IN THE PAST YEAR?NO POINTS0 INTERPRETATIONNEGATIVE RECREATIONAL DRUG USE DRUG USE?NO CAFFEINE CAFFEINE USE?YES 2-3 CUPS COFFEE & ICED TEA THROUGH THE DAY. SEXUAL HX HAD SEX IN THE LAST 12 MONTHS (VAGINAL, ORAL, OR ANAL)?NO HAVE YOU EVER HAD AN STD?NO LMP:2009 HIV / HEP-C SCREENING HIV TEST OFFERED TO PATIENT:YES DATE OFFERED:03/13/2017 TEST ACCEPTED:NO REASON:PATIENT DECLINED HEP-C TEST OFFERED TO PATIENT:NO OCCUPATION: UNEMPLOYED. DIET: REGULAR. EXERCISE: NO REGULAR EXERCISE. MARITAL STATUS: SINGLE. ORTHODOXY [id number] FAITH LANGUAGE LANGUAGES SPOKEN:IRISH EDUCATION LEVEL OF EDUCATION:NOT FINISHED COLLEGE LEARNING BARRIERS / SPECIAL NEEDS CHANGE FROM LAST VISIT?NO BARRIERS TO LEARNING?NO HEARING IMPAIRED?NO VISION IMPAIRED?NO COGNITIVELY IMPAIRED?NO READINESS TO LEARN?YES LEARNING PREFERENCES?NO LEARNING CAPABILITIES PRESENT?YES EMOTIONAL BARRIERS?NO SPECIAL DEVICES?NO SHUTDOWN PLANNER NEEDED?NO PAIN CLINIC PFS, CLERGY, PUBLIC HEALTH REFERRALS WAS THE PROVIDER NOTIFIED OF ANY PERTINENT INFO?YES HAS THE PATIENT BEEN EDUCATED REGARDING HIS/HER PLAN OF CARE?YES HAS THE PATIENT BEEN EDUCATED REGARDING PAIN, THE RISK FOR PAIN, THE IMPORTANCE OF EFFECTIVE PAIN MANAGEMENT, AND THE PAIN ASSESSMENT PROCESS?YES PATIENT: ____. TRAVEL OUTSIDE US: NO. DOMESTIC VIOLENCE DO YOU FEEL SAFE IN YOUR ENVIRONMENT?YES REVIEW OF SYSTEMS REVIEWED BY: PROVIDER: . CONSTITUTIONAL: ANY CHANGE IN YOUR MEDICAL CONDITION? NO . CHILLS NO . FEVER NO . INFECTION: DO YOU HAVE NEW INFECTIONS? NO . DO YOU HAVE HISTORY OF MRSA? NO . MUSCULOSKELETAL: ANY NEW PATTERNS OF PAIN OR NUMBNESS? NO . GASTROENTEROLOGY: ANY NEW CHANGE IN BOWEL CONTROL? NO . GENITOURINARY: ANY NEW CHANGE IN BLADDER CONTROL? NO . IS THERE A CHANCE YOU COULD BE ? NO . HEMATOLOGY/LYMPH: DO YOU TAKE ANY BLOOD THINNERS? (FOR EXAMPLE- COUMADIN, PLAVIX, AGGRENOX, PLATEL, PRADAXA, OR XARELTO) NO . WHEN WAS YOUR LAST DOSE? DATE: TIME: . NEUROLOGY: HAVE YOU FALLEN IN THE PAST 6 MONTHS? NO . ANY NEW EXTREMITY NUMBNESS OR WEAKNESS? NO . CARDIOLOGY: DO YOU HAVE A PACEMAKER OR DEFIBRILLATOR? NO . RESPIRATORY: HAVE YOU BEEN SICK IN THE PAST WEEK? NO . FEVER NO . FLU LIKE SYMPTOMS? NO . COUGH NO . INTEGUMENTARY: DO YOU HAVE ANY RASHES OR OPEN SORES? NO . ALLERGIC/IMMUNO: ARE YOU ALLERGIC TO SHELLFISH OR IV DYE? NO . ANY NEW ALLERGIES? NO . PSYCHIATRIC: DO YOU HAVE THOUGHTS OF HURTING YOURSELF OR SOMEONE ELSE? NO . ARE YOU ABUSED, NEGLECTED, OR IN AN UNSAFE ENVIRONMENT? NO . ENDOCRINOLOGY: ARE YOU DIABETIC? NO . OTHER: DO YOU NEED ANY PRESCRIPTIONS? NO . IF YES, PLEASE LIST: ____ . ANY NEW PROBLEMS WITH YOUR MEDICATIONS? NO . WHEN DID YOU LAST EAT? 08-11-17 9PM . WHEN DID YOU LAST DRINK? 08-12-17 5 AM . WHAT DID YOU LAST DRINK? WATER . NAME OF PERSON DRIVING YOU HOME? 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 DO YOU HAVE ANY OTHER QUESTIONS OR CONCERNS NO . VITAL SIGNS WT 194.0 LBS, HT 67 IN, BMI 30.38 INDEX, BP 170/100 MM HG, REPEAT BP 188/96 MM HG, HR 98 /MIN, RR 18 /MIN, TEMP 96.8 F, OXYGEN SAT % 99%, NA INITIALS TL 1126. ASSESSMENTS SPONDYLOSIS OF LUMBAR REGION WITHOUT MYELOPATHY OR RADICULOPATHY - M47.816 (PRIMARY) SPONDYLOSIS OF LUMBOSACRAL REGION WITHOUT MYELOPATHY OR RADICULOPATHY - M47.817 PROCEDURES PN LUMBAR FACET BLOCK DIAGNOSTIC PRE PROCEDURE DIAGNOSIS LUMBAR SPONDYLOSIS, LUMBOSACRAL SPONDYLOSIS POST PROCEDURE DIAGNOSIS LUMBAR SPONDYLOSIS, LUMBOSACRAL SPONDYLOSIS PROCEDURE RIGHT L4-L5 AND RIGHT L5-S1 FACET BLOCK DIAGNOSTIC NUMBER [address] 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 I EVALUATED THE PATIENT AND REVIEWED THE CHART. I WENT OVER THE RISKS, ALTERNATIVES, AND BENEFITS ASSOCIATED WITH THIS PROCEDURE. THE PATIENT WOULD LIKE TO PROCEED AND GAVE CONSENT TO PERFORM THE PROCEDURE. AGREED WITH THE PATIENT WE ARE DOING THIS PROCEDURE TO DETERMINE IF THE PATIENT IS A CANDIDATE FOR A RADIOFREQUENCY ABLATION OF THE FACETS JOINTS. THE PATIENT DENIES UNEXPLAINABLE WEIGHT LOSS, FEVER, CHILLS, OR NEW CHANGES IN URINARY OR BOWEL CONTROL DESCRIPTION OF PROCEDURE THE PATIENT WAS BROUGHT TO THE PROCEDURE ROOM AND PLACED IN THE PRONE POSITION. THE LUMBOSACRAL AREA WAS CLEANED WITH CHLORAPREP SOLUTION AND DRAPED ASEPTICALLY. THE PROCEDURE WAS DONE UNDER STERILE CONDITIONS. I CHECKED LATERALITY AND THE LEVEL WHERE THE PROCEDURE WAS GOING TO BE PERFORMED WITH THE PATIENT AND THE SUPPORTING STAFF AT THE MOMENT OF THE TIME OUT IN THE PROCEDURE ROOM. UNDER FLUOROSCOPIC GUIDANCE, TARGETS WERE SELECTED AT THE INTERSECTION OF THE RIGHT TRANSVERSE PROCESS OF L4, L5 AND ALA OF S1 WITH ITS RESPECTIVE SUPERIOR ARTICULAR PROCESS. LIDOCAINE WAS USED TO NUMB THE SKIN AND THE SUBCUTANEOUS TISSUE BELOW IT. SPINAL NEEDLE, 22-GAUGE WAS ADVANCED UNDER FLUOROSCOPIC GUIDANCE AND FOLLOWING PATIENT FEEDBACK UNTIL THE TARGETS WERE REACHED. POSITION OF THE NEEDLES WAS VERIFIED WITH AP AND LATERAL VIEWS. AFTER PROPER POSITION OF THE NEEDLES WAS ACHIEVED, ISOVUE-M DYE 30% 0.1 ML WAS INJECTED AT EACH SITE SHOWING ADEQUATE SPREAD OF THE DYE. THEN A SOLUTION OF 0.4 ML OF BUPIVACAINE 0.25% WAS INJECTED AT EACH SITE. THERE WAS NO EVIDENCE OF BLOOD, PARESTHESIA OR CEREBROSPINAL FLUID DURING THE PROCEDURE. THE PATIENT WAS SENT TO THE RECOVERY ROOM. THE PATIENT WAS MOVING THE EXTREMITIES AND DOING WELL. THERE WAS NO COMPLICATION DURING THE PROCEDURE. FLUOROSCOPY TIME WAS 34 SECONDS POST PROCEDURE NOTE THE PATIENT WILL DOCUMENT HIS PAIN LEVEL AND RESPONSE TO THIS PROCEDURE EVERY 30 MINUTES. THE PATIENT WILL BE SEEN IN A FOLLOW UP IN THE NEXT FEW WEEKS. FURTHER DETERMINATION FOR HIS CASE WILL BE DONE AT THE NEXT VISIT. INSTRUCTIONS WERE GIVEN, QUESTIONS WERE ANSWERED, AND THE PATIENT EXPRESSED UNDERSTANDING AND AGREED WITH THE PLAN. I, MACHELLE PRAJAPATI, DOCUMENTED THE ABOVE INFORMATION ACTING A SCRIBE FOR DR. ZEPEDA. I HAVE REVIEWED THE ABOVE DOCUMENT, WRITTEN BY MACHELLE PRAJAPATI SCRIBKarissa AND I VERIFY THAT IT IS ACCURATE DIAGNOSTIC IMAGING [facility] FACET BLOCK (PAIN)[id number] PROCEDURE CODES 01282 INJ PARAVERT F JNT L/S 1 LEV, MODIFIERS: [place] [address] INJ PARAVERT F JNT L/S 2 LEV, MODIFIERS: RT 6045F RADXPS IN END [id number] PXD DISPOSITION & COMMUNICATION FOLLOW UP 3 WEEKS ELECTRONICALLY SIGNED BY HARRISON ZEPEDA MD ON 08/17/2017 AT 08:45 PM EST DISCLAIMER : THIS IS A VISIT SUMMARY EXTRACTED FROM THE [employer] CHART. IT IS NOT A COPY OF THE [employer] PROGRESS NOTE. MTDD
== END ==
LOC: M PAIN 11:30
PROVIDERS: ATTEND Anesthesiology
DX: G89.29 Other chronic pain (principal); M47.816 Spondylosis without myelopathy or radiculopathy, lumbar region; M47.817 Spondylosis without myelopathy or radiculopathy, lumbosacral region; D83.9 Common variable immunodeficiency, unspecified; F31.9 Bipolar disorder, unspecified; F41.9 Anxiety disorder, unspecified; F10.21 Alcohol dependence, in remission; I73.00 Raynaud's syndrome without gangrene; D50.9 Iron deficiency anemia, unspecified; J30.89 Other allergic rhinitis; I87.2 Venous insufficiency (chronic) (peripheral); F17.210 Nicotine dependence, cigarettes, uncomplicated; Z88.8 Allergy status to other drugs, medicaments and biological substances; Z88.5 Allergy status to narcotic agent; Z91.040 Latex allergy status; Z79.891 Long term (current) use of opiate analgesic; Z79.899 Other long term (current) drug therapy
CPT/HCPCS: 64493; 64494; Q9967

== ENCOUNTER → 2017-08-25 | Outpatient (CLI) | payer OTHER ==
[~2017-08-25] MED LIST changes: -BUPIVACAINE HCL 0.25% 30 ML VIAL As Ordered ONE; -ISOVUE-M 300 61% 15ML VIAL (Q9967) As Ordered ONE; +LAMI1TAB6 PO; +LASI20TA PO; -LIDOCAINE 1% SDV INJ 30 ML VIAL As Ordered ONE; +MULT1TAB10 PO; +OMEP40CA2 PO; +PROBCAP4 PO; +VENTAER INH; +VITA100067 PO; +VITA500T PO; +[UNRECOGNIZED DRUG - CODE] IV; +[UNRECOGNIZED DRUG - CODE] PO; +[UNRECOGNIZED DRUG - OTHER] PO
--- NOTE | 2017-09-09 01:25 | ECWPNPC ---
PATIENT NAME: ADELA ALMONTE : 1980 GENDER: FEMALE VISIT DATE: 08/25/2017 DISCHARGE DATE: 08/25/17 1655 VISIT LOCKED DATE TIME: PHYSICIAN: HARRISON ZEPEDA RESOURCE: HARRISON ZEPEDA REASON FOR APPOINTMENT 1. LOW BACK PAIN HISTORY OF PRESENT ILLNESS HISTORY OF PRESENT ILLNESS: PAIN THE PATIENT DESCRIBES THE PAIN... 37 YEAR OLD FEMALE PATIENT WITH HISTORY OF CHRONIC BACK PAIN. PATIENT DESCRIBES THE PAIN ACHING, BURNING, SHARP, STABBING, TENDER, THROBBING, SORE, SHOOTING AND HAVING IT ALL THE TIME WITH A PAIN SCORE OF 8/10. PATIENT HAS A HISTORY OF TWO BACK SURGERIES ONE IN 1997 AND ONE IN 2008. PATIENT REPORTS UNABLE TO USE IBUPROFEN DUE TO GASTRIC BYPASS. PATIENT TRIED GABAPENTIN FOR SEVERAL MONTHS WITH NO RELIEF, LYRICA AIDS WITH THE TINGLY IN HER FEET BUT DOES NOT AID IN PAIN RELIEF FOR THE BACK, AND ELAVIL DID NOT AID THE PATIENT WITH PAIN RELIEF. AT THIS TIME THE PATIENT IS USING CYCLOBENZAPRINE,PERCOCET AND BUTRANS STATES THAT THE MEDICATION DOES AID IN PAIN RELIEF. PATIENT STATES SHE IS ABLE TO REDUCE 2 OXYCODONE AT NIGHT WITH THE BUTRANS PATCH. PATIENT REPORTS THAT SHE WOULD LIKE TO USE LYRICA FOR THE BURNING AND TINGLY SENSATION IN THE FEET. PATIENT RECEIVED A DIAGNOSTIC FACET BLOCK ON 08/12/17 AND REPORTS HAVING OVER 50% RELIEF FROM THE PAIN FOR OVER 8 HOURS. PATIENT DENIES UNEXPLAINABLE WEIGHT LOSS, FEVER, CHILLS, NEW CHANGES ON HER URINARY OR BOWEL CONTROL. FALL RISK SCREENING: SCREENING :NO FALLS IN THE PAST YEAR CURRENT MEDICATIONS TAKING GAMMAGARD 10 % SOLUTION INTRAVENOUS EVERY 4 WEEKS TAKING MUPIROCIN CALCIUM 2 % CREAM 1 APPLICATION TO AFFECTED AREA EXTERNALLY NOSE GROIN AXILLA HEAD BID 1 WEEK TAKING AMERGE 1 MG TABLET 1 TAB(S) ORALLY DAILY NEEDED TAKING IMITREX 4 MG/0.5ML SOLUTION 1 INJECTION NEEDED AT THE ONSET OF A MIGRAINE SUBCUTANEOUS REPEAT TIMES ONE IF NOT EFFECTIVE (DR JC) TAKING BUSPIRONE HCL 30 MG TABLET 1 TABLET ORALLY TWICE A DAY TAKING VYVANSE 70 MG CAPSULE 1 CAPSULE IN THE MORNING ORALLY ONCE A DAY TAKING ANTABUSE 500 MG TABLET 1 TABLET ORALLY ONCE A DAY TAKING ACETAMINOPHEN 500 MG CAPSULE 1 CAPSULES NEEDED ORALLY EVERY 6 HRS PRN TAKING ZOFRAN ODT 8 MG TABLET DISPERSIBLE 1 ORALLY BID PRN TAKING TRILEPTAL 300 MG TABLET 1 TABLET ORALLY TWICE A DAY TAKING FLUOCINONIDE 0.05 % SOLUTION APPLY 1 DROP EXTERNALLY TO EACH SCALP LESION BID TAKING OMEPRAZOLE 40 MG CAPSULE DELAYED RELEASE 1 CAPSULE ORALLY TWICE A DAY TAKING PHENERGAN 25 MG TABLET 1 TABLET ORALLY EVERY 6 HRS PRN NAUSEA TAKING NIFEDIPINE 30 MG TABLET EXTENDED RELEASE DIRECTED ORALLY DAILY TAKING LAMISIL 250 MG TABLET 1 TABLET ORALLY ONCE A DAY TAKING VENTOLIN HFA 108 (90 BASE) MCG/ACT AEROSOL SOLUTION 2 PUFFS NEEDED INHALATION EVERY 4 HRS PRN TAKING NICORETTE 4 MG GUM 1 PIECE NEEDED MOUTH/THROAT Q 2-4 HOURS MDD=12 TAKING VRAYLAR 3 MG CAPSULE 1 CAPSULE ORALLY ONCE A DAY TAKING PERCOCET 5-325 MG TABLET 1 TABLETS ORALLY EVERY 4 HRS PRN PAIN MDD=5 TAKING TIZANIDINE HCL 2 MG TABLET 1 TABLET NEEDED ORALLY FOR SPASMS AND PAIN BEFORE BEDTIME MAY REPEAT IN 4 HRS MDD2 TAKING PROTONIX 40 MG TABLET DELAYED RELEASE 1 TABLET ORALLY ONCE A DAY TAKING BUTRANS 5 MCG/HR PATCH WEEKLY 1 PATCH TO SKIN TRANSDERMAL WEEKLY NOT-TAKING LYRICA 225 MG CAPSULE 1 CAPSULE ORALLY Q 8 HRS MDD=3, NOTES: NONE RECENT MEDICATION LIST REVIEWED AND RECONCILED WITH THE PATIENT PAST MEDICAL HISTORY HYPERLIPIDEMIA (RESOLVED WITH GASTRIC BYPASS) MENOPAUSE CHRONIC NECK/MID/LOW BACK PAIN PEPTIC ULCER DISEASE, S/P GASTRIC BYPASS BIPOLAR, ANXIETY, DEPRESSION ALCOHOLISM MIGRAINE HEADACHES TOBACCO USE ADD CHRONIC RHINITIS/SINUSITIS 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 CRISTOBAL CHOLECYSTECTOMY 07/13 [facility] W/ AGUDELO, APPENDECTOMY 12/13 GASTRIC BYPASS (DR. CARTAGENA, [facility]) 01/2012 LAPAROSCOPY AND REMOVAL OF ADHESIONS (DR. BARRERA) 12/2012 CHEST TUBE ENDOSCOPY/COLONOSCOPY BLOOD TRANSFUSION BLADDER REPAIR 10/2016 SOCIAL HISTORY GENERAL: TOBACCO USE ARE YOU A:CURRENT SMOKER ARE YOU INTERESTED IN QUITTING?THINKING ABOUT QUITTING GOING TO ASK PRIMARY FOR CHANTIX PREVIOUS QUIT ATTEMPTS?YES, WITHIN THE LAST 6 MONTHS. HAD QUIT FOR 4 MONTHS AND JUST STARTED SMOKING AGAIN APPROX. 2 MONTHS AGO. COUNSELED THE PATIENT ON SMOKING CESSATION, EDUCATION [id number]/20/2017 HOW MANY CIGARETTES A DAY DO YOU SMOKE?6-10 HOW SOON AFTER YOU WAKE UP DO YOU SMOKE YOUR FIRST CIGARETTE?AFTER 60 MIN HOW OFTEN DO YOU SMOKE CIGARETTES?EVERY DAY PATIENT COUNSELED ON THE DANGERS OF TOBACCO USE AND URGED TO QUIT:08/25/2017 NO EDUCATION MATERIAL WANTED FOR SMOKING LUNG CANCER SCREENING SMOKING STATUS:CURRENT SMOKER BMI CARE GOAL FOLLOW-UP ABOVE NORMAL BMI FOLLOW-UPDIETARY MANAGEMENT EDUCATION, GUIDANCE, AND COUNSELING, DIETARY NEEDS EDUCATION, EXERCISE PROMOTION: STRENGTH TRAINING ALCOHOL SCREENING DID YOU HAVE A DRINK CONTAINING ALCOHOL IN THE PAST YEAR?NO POINTS0 INTERPRETATIONNEGATIVE RECREATIONAL DRUG USE DRUG USE?NO CAFFEINE CAFFEINE USE?YES 2-3 CUPS COFFEE & ICED TEA THROUGH THE DAY. SEXUAL HX HAD SEX IN THE LAST 12 MONTHS (VAGINAL, ORAL, OR ANAL)?NO HAVE YOU EVER HAD AN STD?NO LMP:2009 HIV / HEP-C SCREENING HIV TEST OFFERED TO PATIENT:YES DATE OFFERED:03/13/2017 TEST ACCEPTED:NO REASON:PATIENT DECLINED HEP-C TEST OFFERED TO PATIENT:NO OCCUPATION: UNEMPLOYED. DIET: REGULAR. EXERCISE: NO REGULAR EXERCISE. MARITAL STATUS: SINGLE. CONFUCIANISM [id number] RELIGIOUS LANGUAGE LANGUAGES SPOKEN:OCCITAN EDUCATION LEVEL OF EDUCATION:NOT FINISHED COLLEGE LEARNING BARRIERS / SPECIAL NEEDS CHANGE FROM LAST VISIT?NO BARRIERS TO LEARNING?NO HEARING IMPAIRED?NO VISION IMPAIRED?NO COGNITIVELY IMPAIRED?NO READINESS TO LEARN?YES LEARNING PREFERENCES?NO LEARNING CAPABILITIES PRESENT?YES EMOTIONAL BARRIERS?NO SPECIAL DEVICES?NO VAULT CASHIER NEEDED?NO PAIN CLINIC PFS, CLERGY, PUBLIC HEALTH REFERRALS WAS THE PROVIDER NOTIFIED OF ANY PERTINENT INFO?YES HAS THE PATIENT BEEN EDUCATED REGARDING HIS/HER PLAN OF CARE?YES HAS THE PATIENT BEEN EDUCATED REGARDING PAIN, THE RISK FOR PAIN, THE IMPORTANCE OF EFFECTIVE PAIN MANAGEMENT, AND THE PAIN ASSESSMENT PROCESS?YES PATIENT: ____. ADVANCE DIRECTIVES HEALTH CARE PROXY?NO DO YOU HAVE A DNR?NO LIVING WILL?NO POWER OF HIDE WASHER?NO TRAVEL OUTSIDE US: NO. DOMESTIC VIOLENCE DO YOU FEEL SAFE IN YOUR ENVIRONMENT?YES HOSPITALIZATION/MAJOR DIAGNOSTIC PROCEDURE SURGERY RELATED [facility] ([facility]) 05/2012 ADMITTED TO [facility] 12/2015 [facility] 10/2015 REVIEW OF SYSTEMS REVIEWED BY: PROVIDER: HARRISON ZEPEDA MD . CONSTITUTIONAL: ANY CHANGE IN YOUR MEDICAL CONDITION? NO . CHILLS NO . FEVER NO . INFECTION: DO YOU HAVE NEW INFECTIONS? NO . DO YOU HAVE HISTORY OF MRSA? NO . MUSCULOSKELETAL: ANY NEW PATTERNS OF PAIN OR NUMBNESS? NO, PT STATES RIGHT L4-5/L5-S1 FACET BLOCK DX #1 DONE 08/12/17. PREPROCEDURE PAIN WAS 8/10. POST PROCEDURE PAIN WAS 6/10, GRADUALLY DROPPING. PT STATES DAY OF PROCEDURE, PROCEDURE ENDED AT 11:30AM. SHE STATES SHE TOOK PERCOSET POST PROCEDURE @ 14:30 AND 2030 THAT DAY. . GASTROENTEROLOGY: ANY NEW CHANGE IN BOWEL CONTROL? NO . GENITOURINARY: ANY NEW CHANGE IN BLADDER CONTROL? NO . IS THERE A CHANCE YOU COULD BE ? NO . HEMATOLOGY/LYMPH: DO YOU TAKE ANY BLOOD THINNERS? (FOR EXAMPLE- COUMADIN, PLAVIX, AGGRENOX, PLATEL, PRADAXA, OR XARELTO) NO . WHEN WAS YOUR LAST DOSE? DATE: TIME: . NEUROLOGY: HAVE YOU FALLEN IN THE PAST 6 MONTHS? NO . ANY NEW EXTREMITY NUMBNESS OR WEAKNESS? NO . CARDIOLOGY: DO YOU HAVE A PACEMAKER OR DEFIBRILLATOR? NO . RESPIRATORY: HAVE YOU BEEN SICK IN THE PAST WEEK? NO . FEVER NO . FLU LIKE SYMPTOMS? NO . COUGH NO . INTEGUMENTARY: DO YOU HAVE ANY RASHES OR OPEN SORES? NO . ALLERGIC/IMMUNO: ARE YOU ALLERGIC TO SHELLFISH OR IV DYE? NO . ANY NEW ALLERGIES? NO . PSYCHIATRIC: DO YOU HAVE THOUGHTS OF HURTING YOURSELF OR SOMEONE ELSE? NO . ARE YOU ABUSED, NEGLECTED, OR IN AN UNSAFE ENVIRONMENT? NO . ENDOCRINOLOGY: ARE YOU DIABETIC? NO . OTHER: DO YOU NEED ANY PRESCRIPTIONS? YES, PERCOSET . IF YES, PLEASE LIST: ____ . ANY NEW PROBLEMS WITH YOUR MEDICATIONS? NO . WHEN DID YOU LAST EAT? ____ . WHEN DID YOU LAST DRINK? ____ . WHAT DID YOU LAST DRINK? ____ . NAME OF PERSON DRIVING YOU HOME? ____ . DO YOU HAVE ANY OTHER QUESTIONS OR CONCERNS NO . VITAL SIGNS WT 190.0 LBS, HT 67 IN, BMI 29.75 INDEX, BP 159/93 MM HG, HR 106 /MIN, RR 16 /MIN, TEMP 96.4 F, OXYGEN SAT % 98%, NA INITIALS TL 1420, REVIEWED BY: BEATRIZ. EXAMINATION : PATIENT IS ALERT O X 3 AND COOPERATIVE. TENDERNESS IN LOWER BACK AND PARASPINAL MUSCLE GROUP. LIMPING FROM THE RIGHT LEG. RIGHT LEG WEAKER THEN THE LEFT AT EXTENSION AND FLEXION. MRI DONE ON 09/04/16 OF THE LUMBAR SPINE SHOWS POSTOPERATIVE CHANGES AND NEURAL FORAMINAL NARROWING AT L4-L5. ASSESSMENTS POSTLAMINECTOMY SYNDROME, NOT ELSEWHERE CLASSIFIED - M96.1 (PRIMARY) SACROILIITIS, NOT ELSEWHERE CLASSIFIED - M46.1 SPONDYLOSIS OF LUMBAR REGION WITHOUT MYELOPATHY OR RADICULOPATHY - M47.816 SPONDYLOSIS OF LUMBOSACRAL REGION WITHOUT MYELOPATHY OR RADICULOPATHY - M47.817 TREATMENT POSTLAMINECTOMY SYNDROME, NOT ELSEWHERE CLASSIFIED REFILL LYRICA CAPSULE, 75 MG, 1 CAPSULE, ORALLY, Q 8 HRS MDD=3, 30 DAY(S), 90, REFILLS 0, NOTES: NONE RECENT REFILL PERCOCET TABLET, 5-325 MG, 1 TABLETS, ORALLY, DAILY NEEDED FOR PAIN MDD1, 10 DAY(S), 10, REFILLS 0 NOTES: WE DISCUSSED SEVERAL ISSUES WITH MRS. ALMONTE'S PAIN MANAGEMENT CASE. PATIENT WILL CONTINUE WITH THE SAME MEDICATION REGIME BEFORE. I WOULD LIKE THE PATIENT TO CONTINUE USING THE BUTRANS' PATCH FOR THE SOMATIC PAIN. 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 PATIENT WILL TRY TO REDUCE THE USE OF OXYCODONE AND USE THE LYRICA IN PLACE OF IT. PATIENT DENIES ABUSE OF THE MEDICATION, DENIES USE OF ILLEGAL SUBSTANCES, AND STATES SHE IS ONLY USING THE MEDICATION FOR PAIN MANAGEMENT. URINE TOXICOLOGY REPORT DONE ON 07/25/2017 SHOWS CONSISTENT RESULTS. ISTOP REVIEWED [id number]. DUE TO THE PAIN RELIEF THE PATIENT RECEIVED FROM THE FIRST DIAGNOSTIC TEST I WOULD LIKE TO PROCEED WITH A SECOND DIAGNOSTIC TEST TO CONSIDER RADIOFREQUENCY. WE DISCUSSED THE RISKS, BENENFITS, AND ALTNERATIVES OF THE DIAGNOSTIC TEST AND THE PATIENT WOULD LIKE TO PROCEED AT THIS TIME. INSTRUCTIONS WERE GIVEN, QUESTIONS WERE ANSWERED, PATIENT REPORTS UNDERSTANDING AND AGREES WITH THE PLAN. I, MACHELLE PRAJAPATI, DOCUMENTED THE ABOVE INFORMATION ACTING A SCRIBE FOR DR. ZEPEDA. I HAVE REVIEWED THE ABOVE DOCUMENT, WRITTEN BY MACHELLE NUÑEZ AND I VERIFY THAT IT IS ACCURATE. PROCEDURE CODES FA211 ESTABILISHED PATIENT [facility] CHARGE [id number] DOC MEDS VERIFIED W/PT OR RE G8730 PAIN ASSESS POS TOOL F/U PLAN DOC DISPOSITION & COMMUNICATION FOLLOW UP LFBD #2 ELECTRONICALLY SIGNED BY HARRISON ZEPEDA MD ON 09/08/2017 AT 06:21 PM EST DISCLAIMER : THIS IS A VISIT SUMMARY EXTRACTED FROM THE [employer] CHART. IT IS NOT A COPY OF THE [employer] PROGRESS NOTE. NENITAD
== END ==
LOC: M PAIN 14:30
PROVIDERS: ATTEND Anesthesiology
DX: M96.1 Postlaminectomy syndrome, not elsewhere classified (principal); M46.1 Sacroiliitis, not elsewhere classified; M47.816 Spondylosis without myelopathy or radiculopathy, lumbar region; M47.817 Spondylosis without myelopathy or radiculopathy, lumbosacral region; M54.9 Dorsalgia, unspecified; G89.29 Other chronic pain; Z79.891 Long term (current) use of opiate analgesic; Z79.899 Other long term (current) drug therapy; F17.210 Nicotine dependence, cigarettes, uncomplicated; Z88.5 Allergy status to narcotic agent; Z88.8 Allergy status to other drugs, medicaments and biological substances; Z91.040 Latex allergy status; Z98.84 Bariatric surgery status

== ENCOUNTER → 2017-09-01 | Outpatient (REF) | payer OTHER ==
[2017-09-01 19:26] LABS: ALBUMIN 3.1 GM/DL (3.2-5.2); ALBUMIN/GLOBULIN RATIO 0.89 (1.00-1.93); ALKALINE PHOSPHATASE 119 U/L (45-117); ALT/SGPT 30 U/L (12-78); ANION GAP 6 MEQ/L (8-16); AST/SGOT 27 U/L (7-37); BILIRUBIN,TOTAL 0.1 MG/DL (0.2-1.0); BLOOD UREA NITROGEN 15 MG/DL (7-18); CALCIUM LEVEL 9.3 MG/DL (8.5-10.1); CARBON DIOXIDE LEVEL 27 MEQ/L (21-32); CHLORIDE LEVEL 112 MEQ/L (98-107); CREATININE FOR GFR 0.57 MG/DL (0.55-1.02); GLOMERULAR FILTRATION RATE > 60.0 (>60); GLUCOSE, FASTING 50 MG/DL (70-105); IMMUNOGLOBULIN G 816 MG/DL (681-1648); SODIUM LEVEL 145 MEQ/L (136-145); TOTAL PROTEIN 6.6 GM/DL (6.4-8.2)
[2017-09-01 19:35] LABS: BASO % 0.5 % (0.0-1.0); EOS # 0.1 10^3/uL (0.0-0.50); EOS % 0.9 % (0.0-3.0); IMMATURE GRANULOCYTE % 0.2 % (0-0); LYMPH # 2.2 10^3/uL (1.5-4.5); LYMPH % 36.9 % (24.0-44.0); MEAN CORPUSCULAR HEMOGLOBIN 27.4 pg (27.0-33.0); MEAN CORPUSCULAR HGB CONC 31.3 g/dl (32.0-36.5); MEAN CORPUSCULAR VOLUME 87.6 fl (80.0-96.0); MONO # 0.4 10^3/uL (0.0-0.8); MONO % 6.5 % (0.0-5.0); NEUTROPHILS # 3.2 10^3/uL (1.8-7.7); PLATELET COUNT, AUTOMATED 198 10^3/uL (150-450); RED CELL DISTRIBUTION WIDTH 17.4 % (11.5-14.5); WHITE BLOOD COUNT 5.8 10^3/uL (4.0-10.0)
== END ==
LOC: M LABDRAW1 17:04
PROVIDERS: ATTEND Nurse Practitioner Family
DX: D83.9 Common variable immunodeficiency, unspecified (principal)

== ENCOUNTER → 2017-09-04 | Outpatient (CLI) | payer OTHER ==
[~2017-09-04] MED LIST changes: +BUPIVACAINE HCL 0.25% 30 ML VIAL As Ordered ONE; +ISOVUE-M 300 61% 15ML VIAL (Q9967) As Ordered ONE; +LIDOCAINE 1% SDV INJ 30 ML VIAL As Ordered ONE
--- NOTE | 2017-09-04 11:07 | REP ---
Partial lumbar spine series: Two views . History: Injection procedure for pain. 20 seconds of fluoroscopy time is reported. Findings: A sequence of two fluoroscopically obtained last image hold procedural spot radiographs of the lumbar spine document needle position and contrast injection associated with injection procedure. Signed by Moshe Carmona MD 09/04/2017 10:59 A
--- NOTE | 2017-09-24 01:16 | ECWPNPC ---
PATIENT NAME: ADELA ALMONTE : 1980 GENDER: FEMALE VISIT DATE: 09/04/2017 DISCHARGE DATE: 09/04/17 1015 VISIT LOCKED DATE TIME: PHYSICIAN: HARRISON ZEPEDA RESOURCE: HARRISON ZEPEDA REASON FOR APPOINTMENT 1. LFBD #2 HISTORY OF PRESENT ILLNESS FALL RISK SCREENING: SCREENING :NO FALLS IN THE PAST YEAR PAIN SCREENING: PATIENT HAS A COMPLAINT OF ACUTE OR CHRONIC PAIN :YES CURRENT MEDICATIONS TAKING GAMMAGARD 10 % SOLUTION INTRAVENOUS EVERY 4 WEEKS, NOTES: 09/02 12NOON TAKING MUPIROCIN CALCIUM 2 % CREAM 1 APPLICATION TO AFFECTED AREA EXTERNALLY NOSE GROIN AXILLA HEAD BID 1 WEEK, NOTES: 3 WEEKS TAKING AMERGE 1 MG TABLET 1 TAB(S) ORALLY DAILY NEEDED, NOTES: 09/02 12NOON TAKING IMITREX 4 MG/0.5ML SOLUTION 1 INJECTION NEEDED AT THE ONSET OF A MIGRAINE SUBCUTANEOUS REPEAT TIMES ONE IF NOT EFFECTIVE (DR JC), NOTES: 2 WEEKS TAKING BUSPIRONE HCL 30 MG TABLET 1 TABLET ORALLY TWICE A DAY, NOTES: 09/04 4AM TAKING VYVANSE 70 MG CAPSULE 1 CAPSULE IN THE MORNING ORALLY ONCE A DAY, NOTES: 09/04 4AM TAKING ANTABUSE 500 MG TABLET 1 TABLET ORALLY ONCE A DAY, NOTES: 09/04 4AM TAKING ACETAMINOPHEN 500 MG CAPSULE 1 CAPSULES NEEDED ORALLY EVERY 6 HRS PRN, NOTES: 09/04 4AM TAKING ZOFRAN ODT 8 MG TABLET DISPERSIBLE 1 ORALLY BID PRN, NOTES: 09/03 7PM TAKING TRILEPTAL 300 MG TABLET 1 TABLET ORALLY TWICE A DAY, NOTES: 09/04 4AM TAKING FLUOCINONIDE 0.05 % SOLUTION APPLY 1 DROP EXTERNALLY TO EACH SCALP LESION BID, NOTES: 1 MONTH TAKING OMEPRAZOLE 40 MG CAPSULE DELAYED RELEASE 1 CAPSULE ORALLY TWICE A DAY, NOTES: 09/04 4AM TAKING PHENERGAN 25 MG TABLET 1 TABLET ORALLY EVERY 6 HRS PRN NAUSEA, NOTES: 09/04 4AM TAKING LAMISIL 250 MG TABLET 1 TABLET ORALLY ONCE A DAY, NOTES: 09/04 4AM TAKING VENTOLIN HFA 108 (90 BASE) MCG/ACT AEROSOL SOLUTION 2 PUFFS NEEDED INHALATION EVERY 4 HRS PRN, NOTES: 09/03 7PM TAKING VRAYLAR 3 MG CAPSULE 1 CAPSULE ORALLY ONCE A DAY, NOTES: 09/03 7PM TAKING PROTONIX 40 MG TABLET DELAYED RELEASE 1 TABLET ORALLY ONCE A DAY, NOTES: 09/04 4AM TAKING BUTRANS 5 MCG/HR PATCH WEEKLY 1 PATCH TO SKIN TRANSDERMAL WEEKLY, NOTES: 09/02 TAKING LYRICA 75 MG CAPSULE 1 CAPSULE ORALLY Q 8 HRS MDD=3, NOTES: 09/04 4AM TAKING PERCOCET 5-325 MG TABLET 1 TABLETS ORALLY DAILY NEEDED FOR PAIN MDD1, NOTES: 09/04 4AM TAKING LASIX 20 MG TABLET 1-2 TABLETS ORALLY ONCE A DAY PRN EDEMA, NOTES: 3 DAYS AGO TAKING LOSARTAN POTASSIUM 100 MG TABLET 1 TABLET ORALLY ONCE A DAY, NOTES: HAS NOT STARTED YET TAKING AUGMENTIN 875-125 MG TABLET 1 TABLET ORALLY EVERY 12 HRS, NOTES: HAS NOT STARTED YET TAKING DIFLUCAN 150 MG TABLET 1 TABLET ORALLY ONCE A DAY, NOTES: HAS NOT STARTED YET TAKING PROBIOTIC 1 CAPSULE ORALLY DAILY, NOTES: 09/04 4AM TAKING VITAMIN C 1 TABLET ORALLY DAILY, NOTES: 09/04 4AM TAKING VITAMIN D3 1 TABLET ORALLY DAILY, NOTES: 09/04 4AM TAKING CHANTIX 1 MG 1 TAB ORAL TWICE DAILY, NOTES: 09/04 4AM NOT-TAKING NICORETTE 4 MG GUM 1 PIECE NEEDED MOUTH/THROAT Q 2-4 HOURS MDD=12 NOT-TAKING TIZANIDINE HCL 2 MG TABLET 1 TABLET NEEDED ORALLY FOR SPASMS AND PAIN BEFORE BEDTIME MAY REPEAT IN 4 HRS MDD2, NOTES: 2 WEEKS MEDICATION LIST REVIEWED AND RECONCILED WITH THE PATIENT PAST MEDICAL HISTORY HYPERLIPIDEMIA (RESOLVED WITH GASTRIC BYPASS) MENOPAUSE CHRONIC NECK/MID/LOW BACK PAIN PEPTIC ULCER DISEASE, S/P GASTRIC BYPASS BIPOLAR, ANXIETY, DEPRESSION ALCOHOLISM MIGRAINE HEADACHES TOBACCO USE ADD CHRONIC RHINITIS/SINUSITIS 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 CRISTOBAL CHOLECYSTECTOMY 07/13 ELIA W/ AGUDELO, APPENDECTOMY 03/10 GASTRIC BYPASS (DR. CARTAGENA, [facility]) 01/2012 LAPAROSCOPY AND REMOVAL OF ADHESIONS (DR. BARRERA) 12/2012 CHEST TUBE ENDOSCOPY/COLONOSCOPY BLOOD TRANSFUSION BLADDER REPAIR 10/2016 SOCIAL HISTORY GENERAL: TOBACCO USE ARE YOU A:CURRENT SMOKER ARE YOU INTERESTED IN QUITTING?THINKING ABOUT QUITTING GOING TO ASK PRIMARY FOR CHANTIX PREVIOUS QUIT ATTEMPTS?YES, WITHIN THE LAST 6 MONTHS. HAD QUIT FOR 4 MONTHS AND JUST STARTED SMOKING AGAIN APPROX. 2 MONTHS AGO. COUNSELED THE PATIENT ON SMOKING CESSATION, EDUCATION [id number]/30/2017 HOW MANY CIGARETTES A DAY DO YOU SMOKE?6-10 HOW SOON AFTER YOU WAKE UP DO YOU SMOKE YOUR FIRST CIGARETTE?AFTER 60 MIN HOW OFTEN DO YOU SMOKE CIGARETTES?EVERY DAY PATIENT COUNSELED ON THE DANGERS OF TOBACCO USE AND URGED TO QUIT:09/04/2017 NO EDUCATION MATERIAL WANTED FOR SMOKING LUNG CANCER SCREENING SMOKING STATUS:CURRENT SMOKER BMI CARE GOAL FOLLOW-UP ABOVE NORMAL BMI FOLLOW-UPDIETARY MANAGEMENT EDUCATION, GUIDANCE, AND COUNSELING, DIETARY NEEDS EDUCATION, EXERCISE PROMOTION: STRENGTH TRAINING ALCOHOL SCREENING DID YOU HAVE A DRINK CONTAINING ALCOHOL IN THE PAST YEAR?NO POINTS0 INTERPRETATIONNEGATIVE RECREATIONAL DRUG USE DRUG USE?NO CAFFEINE CAFFEINE USE?YES 2-3 CUPS COFFEE & ICED TEA THROUGH THE DAY. SEXUAL HX HAD SEX IN THE LAST 12 MONTHS (VAGINAL, ORAL, OR ANAL)?NO HAVE YOU EVER HAD AN STD?NO LMP:2009 HIV / HEP-C SCREENING HIV TEST OFFERED TO PATIENT:YES DATE OFFERED:03/13/2017 TEST ACCEPTED:NO REASON:PATIENT DECLINED HEP-C TEST OFFERED TO PATIENT:NO OCCUPATION: UNEMPLOYED. DIET: REGULAR. EXERCISE: NO REGULAR EXERCISE. MARITAL STATUS: SINGLE. GNOSTICISM [id number] EPISCOPALIAN LANGUAGE LANGUAGES SPOKEN:SUDANESE EDUCATION LEVEL OF EDUCATION:NOT FINISHED COLLEGE LEARNING BARRIERS / SPECIAL NEEDS CHANGE FROM LAST VISIT?NO BARRIERS TO LEARNING?NO HEARING IMPAIRED?NO VISION IMPAIRED?NO COGNITIVELY IMPAIRED?NO READINESS TO LEARN?YES LEARNING PREFERENCES?NO LEARNING CAPABILITIES PRESENT?YES EMOTIONAL BARRIERS?NO SPECIAL DEVICES?NO SPRING TACKER NEEDED?NO PAIN CLINIC PFS, CLERGY, PUBLIC HEALTH REFERRALS WAS THE PROVIDER NOTIFIED OF ANY PERTINENT INFO?YES HAS THE PATIENT BEEN EDUCATED REGARDING HIS/HER PLAN OF CARE?YES PLEASE DOCUMENT ANY ADDTIONAL DETAILS. LFD#2 HAS THE PATIENT BEEN EDUCATED REGARDING PAIN, THE RISK FOR PAIN, THE IMPORTANCE OF EFFECTIVE PAIN MANAGEMENT, AND THE PAIN ASSESSMENT PROCESS?YES REVIEWED BY: NICO. PATIENT: ____. ADVANCE DIRECTIVES HEALTH CARE PROXY?NO DO YOU HAVE A DNR?NO LIVING WILL?NO POWER OF FINANCIAL AID COUNSELOR?NO TRAVEL OUTSIDE US: NO. DOMESTIC VIOLENCE DO YOU FEEL SAFE IN YOUR ENVIRONMENT?YES HOSPITALIZATION/MAJOR DIAGNOSTIC PROCEDURE SURGERY RELATED [facility] ([facility]) 05/2012 ADMITTED TO [facility] 12/2015 [facility] 10/2015 REVIEW OF SYSTEMS REVIEWED BY: PROVIDER: . CONSTITUTIONAL: ANY CHANGE IN YOUR MEDICAL CONDITION? NO . CHILLS NO . FEVER NO . INFECTION: DO YOU HAVE NEW INFECTIONS? NO . DO YOU HAVE HISTORY OF MRSA? NO . MUSCULOSKELETAL: ANY NEW PATTERNS OF PAIN OR NUMBNESS? NO . SYTEMIC LUPUS NO . GASTROENTEROLOGY: ANY NEW CHANGE IN BOWEL CONTROL? NO . BARRETTS ESOPHAGUS NO . CIRRHOSIS NO . HEPATITIS NO . LIVER FAILURE NO . ACID REFLUX NO . UNEXPLAINED WEIGHT LOSS NO . GENITOURINARY: ANY NEW CHANGE IN BLADDER CONTROL? NO . IS THERE A CHANCE YOU COULD BE ? NO . HEMATOLOGY/LYMPH: DO YOU TAKE ANY BLOOD THINNERS? (FOR EXAMPLE- COUMADIN, PLAVIX, AGGRENOX, PLATEL, PRADAXA, OR XARELTO) NO . WHEN WAS YOUR LAST DOSE? DATE: TIME: . LOW PLATELET COUNT NO . SICKLE CELL DISEASE NO . VON WILLIEBRANDS NO . FACTOR V LEIDEN NO . THALLASEMIA NO . ANEMIA NO . EASY BRUISING NO . NEUROLOGY: HAVE YOU FALLEN IN THE PAST 6 MONTHS? NO . ANY NEW EXTREMITY NUMBNESS OR WEAKNESS? NO . HEAD INJURY NO . DEMENTIA NO . CEREBRAL PALSY NO . MULTIPLE SCLEROSIS NO . DIZZINESS NO . HEADACHE NO . STROKES NO . VERTIGO NO . CARDIOLOGY: DO YOU HAVE A PACEMAKER OR DEFIBRILLATOR? NO . ANGINA NO . HEART ATTACK NO . HEART SURGERY NO . CONGESTIVE HEART FAILURE/FLUID OVERLOAD NO . CHEST PAIN NO . HIGH BLOOD PRESSURE NO . IRREGULAR HEART BEAT NO . RESPIRATORY: HAVE YOU BEEN SICK IN THE PAST WEEK? NO . FEVER NO . FLU LIKE SYMPTOMS? NO . CPAP NO . BYPAP NO . ASTHMA NO . EMPHYSEMA NO . CHRONIC LUNG DISEASES NO . SHORTNESS OF BREATH ON EXERTION NO . COUGH NO . SNORING NO . INTEGUMENTARY: DO YOU HAVE ANY RASHES OR OPEN SORES? NO . ALLERGIC/IMMUNO: ARE YOU ALLERGIC TO SHELLFISH OR IV DYE? NO . ANY NEW ALLERGIES? NO . PSYCHIATRIC: DO YOU HAVE THOUGHTS OF HURTING YOURSELF OR SOMEONE ELSE? NO . ARE YOU ABUSED, NEGLECTED, OR IN AN UNSAFE ENVIRONMENT? NO . ENDOCRINOLOGY: ARE YOU DIABETIC? NO . THYROID DISORDER NO . OTHER: DO YOU NEED ANY PRESCRIPTIONS? NO . IF YES, PLEASE LIST: ____ . ANY NEW PROBLEMS WITH YOUR MEDICATIONS? NO . WHEN DID YOU LAST EAT? 09/03 7PM . WHEN DID YOU LAST DRINK? 09/03 10PM . WHAT DID YOU LAST DRINK? WATER . 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 DO YOU HAVE ANY OTHER QUESTIONS OR CONCERNS PT IS A SMOKER, REFUSING ANY SMOKING CESSATION COUSELING, CURRENTLY HAS PRESCRIPTION FOR CHANTIX. PLANNING TO QUIT NEXT WEEK. . VITAL SIGNS WT 202.0 LBS, HT 67 IN, BMI 31.63 INDEX, BP 170/90 L ARM, REPEAT BP 160/96 R ARM, HR 95 /MIN, RR 16 /MIN, TEMP 96.4 F, OXYGEN SAT % 98%, SAFE IN ENV? (Y/N) Y, NA INITIALS TL 0840, REVIEWED BY: NICO. ASSESSMENTS SPONDYLOSIS OF LUMBAR REGION WITHOUT MYELOPATHY OR RADICULOPATHY - M47.816 (PRIMARY) SPONDYLOSIS OF LUMBOSACRAL REGION WITHOUT MYELOPATHY OR RADICULOPATHY - M47.817 PROCEDURES PN LUMBAR FACET BLOCK DIAGNOSTIC PRE PROCEDURE DIAGNOSIS LUMBAR SPONDYLOSIS, LUMBOSACRAL SPONDYLOSIS POST PROCEDURE DIAGNOSIS LUMBAR SPONDYLOSIS, LUMBOSACRAL SPONDYLOSIS PROCEDURE RIGHT L4-L5 AND RIGHT L5-S1 FACET BLOCK DIAGNOSTIC NUMBER [address] 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 I EVALUATED THE PATIENT AND REVIEWED THE CHART. I WENT OVER THE RISKS, ALTERNATIVES, AND BENEFITS ASSOCIATED WITH THIS PROCEDURE. THE PATIENT WOULD LIKE TO PROCEED AND GAVE CONSENT TO PERFORM THE PROCEDURE. AGREED WITH THE PATIENT WE ARE DOING THIS PROCEDURE TO DETERMINE IF THE PATIENT IS A CANDIDATE FOR A RADIOFREQUENCY ABLATION OF THE FACETS JOINTS. THE PATIENT DENIES UNEXPLAINABLE WEIGHT LOSS, FEVER, CHILLS, OR NEW CHANGES IN URINARY OR BOWEL CONTROL DESCRIPTION OF PROCEDURE THE PATIENT WAS BROUGHT TO THE PROCEDURE ROOM AND PLACED IN THE PRONE POSITION. THE LUMBOSACRAL AREA WAS CLEANED WITH CHLORAPREP SOLUTION AND DRAPED ASEPTICALLY. THE PROCEDURE WAS DONE UNDER STERILE CONDITIONS. I CHECKED LATERALITY AND THE LEVEL WHERE THE PROCEDURE WAS GOING TO BE PERFORMED WITH THE PATIENT AND THE SUPPORTING STAFF AT THE MOMENT OF THE TIME OUT IN THE PROCEDURE ROOM. UNDER FLUOROSCOPIC GUIDANCE, TARGETS WERE SELECTED AT THE INTERSECTION OF THE RIGHT TRANSVERSE PROCESS OF L4, L5 AND ALA OF S1 WITH ITS RESPECTIVE SUPERIOR ARTICULAR PROCESS. LIDOCAINE WAS USED TO NUMB THE SKIN AND THE SUBCUTANEOUS TISSUE BELOW IT. SPINAL NEEDLE, 22-GAUGE WAS ADVANCED UNDER FLUOROSCOPIC GUIDANCE AND FOLLOWING PATIENT FEEDBACK UNTIL THE TARGETS WERE REACHED. POSITION OF THE NEEDLES WAS VERIFIED WITH AP AND LATERAL VIEWS. AFTER PROPER POSITION OF THE NEEDLES WAS ACHIEVED, ISOVUE-M DYE 30% 0.1 ML WAS INJECTED AT EACH SITE SHOWING ADEQUATE SPREAD OF THE DYE. THEN A SOLUTION OF 0.4 ML OF BUPIVACAINE 0.25% WAS INJECTED AT EACH SITE. THERE WAS NO EVIDENCE OF BLOOD, PARESTHESIA OR CEREBROSPINAL FLUID DURING THE PROCEDURE. THE PATIENT WAS SENT TO THE RECOVERY ROOM. THE PATIENT WAS MOVING THE EXTREMITIES AND DOING WELL. THERE WAS NO COMPLICATION DURING THE PROCEDURE. FLUOROSCOPY TIME WAS 20 SECONDS POST PROCEDURE NOTE THE PATIENT WILL DOCUMENT HIS PAIN LEVEL AND RESPONSE TO THIS PROCEDURE EVERY 30 MINUTES. THE PATIENT WILL BE SEEN IN A FOLLOW UP IN THE NEXT FEW WEEKS. FURTHER DETERMINATION FOR HIS CASE WILL BE DONE AT THE NEXT VISIT. INSTRUCTIONS WERE GIVEN, QUESTIONS WERE ANSWERED, AND THE PATIENT EXPRESSED UNDERSTANDING AND AGREED WITH THE PLAN. I, MACHELLE PRAJAPATI, DOCUMENTED THE ABOVE INFORMATION ACTING A SCRIBE FOR DR. ZEPEDA. I HAVE REVIEWED THE ABOVE DOCUMENT, WRITTEN BY MACHELLE NUÑEZ AND I VERIFY THAT IT IS ACCURATE DIAGNOSTIC IMAGING [facility] FACET BLOCK (PAIN)[id number] PROCEDURE CODES 60038 INJ PARAVERT F JNT L/S 1 LEV, MODIFIERS: [place] [address] INJ PARAVERT F JNT L/S 2 LEV, MODIFIERS: RT 6045F RADXPS IN END [id number] PXD DISPOSITION & COMMUNICATION FOLLOW UP 2 WEEKS ELECTRONICALLY SIGNED BY HARRISON ZEPEDA MD ON 09/23/2017 AT 02:55 PM EST DISCLAIMER : THIS IS A VISIT SUMMARY EXTRACTED FROM THE [employer] CHART. IT IS NOT A COPY OF THE [employer] PROGRESS NOTE. MTDD
== END ==
LOC: M PAIN 08:30
PROVIDERS: ATTEND Anesthesiology
DX: G89.29 Other chronic pain (principal); M47.816 Spondylosis without myelopathy or radiculopathy, lumbar region; M47.817 Spondylosis without myelopathy or radiculopathy, lumbosacral region; D83.9 Common variable immunodeficiency, unspecified; F31.9 Bipolar disorder, unspecified; F41.9 Anxiety disorder, unspecified; F10.21 Alcohol dependence, in remission; I73.00 Raynaud's syndrome without gangrene; J30.89 Other allergic rhinitis; I87.2 Venous insufficiency (chronic) (peripheral); F17.210 Nicotine dependence, cigarettes, uncomplicated; G43.909 Migraine, unspecified, not intractable, without status migrainosus; Z88.5 Allergy status to narcotic agent; Z91.040 Latex allergy status; Z88.8 Allergy status to other drugs, medicaments and biological substances; Z79.891 Long term (current) use of opiate analgesic; Z79.899 Other long term (current) drug therapy
CPT/HCPCS: 64493; 64494; Q9967

== ENCOUNTER → 2017-09-04 | Outpatient (CLI) | payer OTHER ==
[~2017-09-04] MED LIST changes: -BUPIVACAINE HCL 0.25% 30 ML VIAL As Ordered ONE; -ISOVUE-M 300 61% 15ML VIAL (Q9967) As Ordered ONE; -LIDOCAINE 1% SDV INJ 30 ML VIAL As Ordered ONE
--- NOTE | 2017-09-21 23:57 | ECWPNPC ---
PATIENT NAME: ADELA ALMONTE : 1980 GENDER: FEMALE VISIT DATE: 09/04/2017 DISCHARGE DATE: 09/04/17 1547 VISIT LOCKED DATE TIME: PHYSICIAN: HARRISON ZEPEDA RESOURCE: HARRISON ZEPEDA REASON FOR APPOINTMENT 1. LOW BACK PAIN HISTORY OF PRESENT ILLNESS HISTORY OF PRESENT ILLNESS: PAIN THE PATIENT DESCRIBES THE PAIN... 37 YEAR OLD FEMALE PATIENT WITH HISTORY OF CHRONIC BACK PAIN. PATIENT DESCRIBES THE PAIN ACHING, BURNING, SHARP, STABBING, TENDER, THROBBING, SORE, SHOOTING AND HAVING IT ALL THE TIME WITH A PAIN SCORE OF 7/10. PATIENT HAS A HISTORY OF TWO BACK SURGERIES ONE IN 1997 AND ONE IN 2008. PATIENT REPORTS UNABLE TO USE IBUPROFEN DUE TO GASTRIC BYPASS. PATIENT TRIED GABAPENTIN FOR SEVERAL MONTHS WITH NO RELIEF, LYRICA AIDS WITH THE TINGLY IN HER FEET BUT DOES NOT AID IN PAIN RELIEF FOR THE BACK, AND ELAVIL DID NOT AID THE PATIENT WITH PAIN RELIEF. AT THIS TIME THE PATIENT IS USING OXYCODONE, LYRICA AND BUTRAN PATCHES AND STATES THAT SHE STILL HAS PAIN WITH THE MEDICATIONS. PATIENT RECEIVED A LUMBAR FACET DIAGNOSTIC BLOCK #2 AND STATES THAT SHE HAD MORE THAN 80% PAIN RELIEF WITH INCREASED FUNCTIONALITY AND MOBILITY. PATIENT DENIES UNEXPLAINABLE WEIGHT LOSS, FEVER, CHILLS, NEW CHANGES ON HER URINARY OR BOWEL CONTROL. FALL RISK SCREENING: SCREENING :NO FALLS IN THE PAST YEAR CURRENT MEDICATIONS TAKING GAMMAGARD 10 % SOLUTION INTRAVENOUS EVERY 4 WEEKS, NOTES: 09/02 12NOON TAKING MUPIROCIN CALCIUM 2 % CREAM 1 APPLICATION TO AFFECTED AREA EXTERNALLY NOSE GROIN AXILLA HEAD BID 1 WEEK, NOTES: 3 WEEKS TAKING AMERGE 1 MG TABLET 1 TAB(S) ORALLY DAILY NEEDED, NOTES: 09/02 12NOON TAKING IMITREX 4 MG/0.5ML SOLUTION 1 INJECTION NEEDED AT THE ONSET OF A MIGRAINE SUBCUTANEOUS REPEAT TIMES ONE IF NOT EFFECTIVE (DR JC), NOTES: 2 WEEKS TAKING BUSPIRONE HCL 30 MG TABLET 1 TABLET ORALLY TWICE A DAY, NOTES: 09/04 4AM TAKING VYVANSE 70 MG CAPSULE 1 CAPSULE IN THE MORNING ORALLY ONCE A DAY, NOTES: 09/04 4AM TAKING ANTABUSE 500 MG TABLET 1 TABLET ORALLY ONCE A DAY, NOTES: 09/04 4AM TAKING ACETAMINOPHEN 500 MG CAPSULE 1 CAPSULES NEEDED ORALLY EVERY 6 HRS PRN, NOTES: 09/04 4AM TAKING ZOFRAN ODT 8 MG TABLET DISPERSIBLE 1 ORALLY BID PRN, NOTES: 09/03 7PM TAKING TRILEPTAL 300 MG TABLET 1 TABLET ORALLY TWICE A DAY, NOTES: 09/04 4AM TAKING FLUOCINONIDE 0.05 % SOLUTION APPLY 1 DROP EXTERNALLY TO EACH SCALP LESION BID, NOTES: 1 MONTH TAKING OMEPRAZOLE 40 MG CAPSULE DELAYED RELEASE 1 CAPSULE ORALLY TWICE A DAY, NOTES: 09/04 4AM TAKING PHENERGAN 25 MG TABLET 1 TABLET ORALLY EVERY 6 HRS PRN NAUSEA, NOTES: 09/04 4AM TAKING LAMISIL 250 MG TABLET 1 TABLET ORALLY ONCE A DAY, NOTES: 09/04 4AM TAKING VENTOLIN HFA 108 (90 BASE) MCG/ACT AEROSOL SOLUTION 2 PUFFS NEEDED INHALATION EVERY 4 HRS PRN, NOTES: 09/03 7PM TAKING VRAYLAR 3 MG CAPSULE 1 CAPSULE ORALLY ONCE A DAY, NOTES: 09/03 7PM TAKING PROTONIX 40 MG TABLET DELAYED RELEASE 1 TABLET ORALLY ONCE A DAY, NOTES: 09/04 4AM TAKING BUTRANS 5 MCG/HR PATCH WEEKLY 1 PATCH TO SKIN TRANSDERMAL WEEKLY, NOTES: 09/02 TAKING LYRICA 75 MG CAPSULE 1 CAPSULE ORALLY Q 8 HRS MDD=3, NOTES: 09/04 4AM TAKING PERCOCET 5-325 MG TABLET 1 TABLETS ORALLY DAILY NEEDED FOR PAIN MDD1, NOTES: 09/04 4AM TAKING LASIX 20 MG TABLET 1-2 TABLETS ORALLY ONCE A DAY PRN EDEMA, NOTES: 3 DAYS AGO TAKING LOSARTAN POTASSIUM 100 MG TABLET 1 TABLET ORALLY ONCE A DAY, NOTES: HAS NOT STARTED YET TAKING AUGMENTIN 875-125 MG TABLET 1 TABLET ORALLY EVERY 12 HRS, NOTES: HAS NOT STARTED YET TAKING DIFLUCAN 150 MG TABLET 1 TABLET ORALLY ONCE A DAY, NOTES: HAS NOT STARTED YET TAKING PROBIOTIC 1 CAPSULE ORALLY DAILY, NOTES: 09/04 4AM TAKING VITAMIN C 1 TABLET ORALLY DAILY, NOTES: 09/04 4AM TAKING VITAMIN D3 1 TABLET ORALLY DAILY, NOTES: 09/04 4AM TAKING CHANTIX 1 MG 1 TAB ORAL TWICE DAILY, NOTES: 09/04 4AM NOT-TAKING NICORETTE 4 MG GUM 1 PIECE NEEDED MOUTH/THROAT Q 2-4 HOURS MDD=12 NOT-TAKING TIZANIDINE HCL 2 MG TABLET 1 TABLET NEEDED ORALLY FOR SPASMS AND PAIN BEFORE BEDTIME MAY REPEAT IN 4 HRS MDD2, NOTES: 2 WEEKS MEDICATION LIST REVIEWED AND RECONCILED WITH THE PATIENT PAST MEDICAL HISTORY HYPERLIPIDEMIA (RESOLVED WITH GASTRIC BYPASS) MENOPAUSE CHRONIC NECK/MID/LOW BACK PAIN PEPTIC ULCER DISEASE, S/P GASTRIC BYPASS BIPOLAR, ANXIETY, DEPRESSION ALCOHOLISM MIGRAINE HEADACHES TOBACCO USE ADD CHRONIC RHINITIS/SINUSITIS RAYNAUD'S SYNDROME COMMON VARIABLE AUTOIMMUNE DEFICIENCY DISEASE ASTHMA HEART MURMUR ALLERGIES MORPHINE: HIVES: ALLERGY LATEX: HIVES: ALLERGY DILAUDID: HIVES: ALLERGY REGLAN: HIVES: ALLERGY LAMICTAL: HIVES: ALLERGY DEPAKOTE: CONFUSION: CONTRAINDICATION RISPERDAL: SUICIDAL IDEATION: ALLERGY KETOROLAC TROMETHAMINE: ANAPHYLAXIS: ALLERGY GASTROGRAFIN: HIVES: ALLERGY MUSCLE RELAXERS: ALTERED MENTAL STATUS: SIDE EFFECTS SURGICAL HISTORY LUMBAR LAMINECTOMY [place] 02/11 BACK SURGERY 1997 LAPAROTOMY X 4...CARTHAGE....DR. CRISTOBAL CHOLECYSTECTOMY 07/13 ELIA W/ AGUDELO, APPENDECTOMY 12/13 GASTRIC BYPASS (DR. CARTAGENA, [facility]) 01/2012 LAPAROSCOPY AND REMOVAL OF ADHESIONS (DR. BARRERA) 12/2012 CHEST TUBE ENDOSCOPY/COLONOSCOPY BLOOD TRANSFUSION BLADDER REPAIR 10/2016 FAMILY HISTORY FATHER SKIN CANCER. SOCIAL HISTORY GENERAL: TOBACCO USE ARE YOU A:CURRENT SMOKER ARE YOU INTERESTED IN QUITTING?THINKING ABOUT QUITTING GOING TO ASK PRIMARY FOR CHANTIX PREVIOUS QUIT ATTEMPTS?YES, WITHIN THE LAST 6 MONTHS. HAD QUIT FOR 4 MONTHS AND JUST STARTED SMOKING AGAIN APPROX. 2 MONTHS AGO. COUNSELED THE PATIENT ON SMOKING CESSATION, EDUCATION [id number]/30/2017 HOW MANY CIGARETTES A DAY DO YOU SMOKE?6-10 HOW SOON AFTER YOU WAKE UP DO YOU SMOKE YOUR FIRST CIGARETTE?AFTER 60 MIN HOW OFTEN DO YOU SMOKE CIGARETTES?EVERY DAY PATIENT COUNSELED ON THE DANGERS OF TOBACCO USE AND URGED TO QUIT:09/04/2017 NO EDUCATION MATERIAL WANTED FOR SMOKING LUNG CANCER SCREENING SMOKING STATUS:CURRENT SMOKER BMI CARE GOAL FOLLOW-UP ABOVE NORMAL BMI FOLLOW-UPDIETARY MANAGEMENT EDUCATION, GUIDANCE, AND COUNSELING, DIETARY NEEDS EDUCATION, EXERCISE PROMOTION: STRENGTH TRAINING ALCOHOL SCREENING DID YOU HAVE A DRINK CONTAINING ALCOHOL IN THE PAST YEAR?NO POINTS0 INTERPRETATIONNEGATIVE RECREATIONAL DRUG USE DRUG USE?NO CAFFEINE CAFFEINE USE?YES 2-3 CUPS COFFEE & ICED TEA THROUGH THE DAY. SEXUAL HX HAD SEX IN THE LAST 12 MONTHS (VAGINAL, ORAL, OR ANAL)?NO LMP:2009 HAVE YOU EVER HAD AN STD?NO HIV / HEP-C SCREENING HIV TEST OFFERED TO PATIENT:YES DATE OFFERED:03/13/2017 TEST ACCEPTED:NO HEP-C TEST OFFERED TO PATIENT:NO REASON:PATIENT DECLINED OCCUPATION: UNEMPLOYED. DIET: REGULAR. EXERCISE: NO REGULAR EXERCISE. MARITAL STATUS: SINGLE. 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 LFD#2 HAS THE PATIENT BEEN EDUCATED REGARDING PAIN, THE RISK FOR PAIN, THE IMPORTANCE OF EFFECTIVE PAIN MANAGEMENT, AND THE PAIN ASSESSMENT PROCESS?YES REVIEWED BY: DS. PATIENT: ____. ADVANCE DIRECTIVES HEALTH CARE PROXY?NO POWER OF ORTHOTIC/PROSTHETIC CLINICIAN?NO DO YOU HAVE A DNR?NO LIVING WILL?NO TRAVEL OUTSIDE US: NO. DOMESTIC VIOLENCE DO YOU FEEL SAFE IN YOUR ENVIRONMENT?YES HOSPITALIZATION/MAJOR DIAGNOSTIC PROCEDURE SURGERY RELATED [facility]) 05/2012 ADMITTED TO [facility] 12/2015 [facility] 10/2015 REVIEW OF SYSTEMS REVIEWED BY: PROVIDER: HARRISON ZEPEDA MD . CONSTITUTIONAL: ANY CHANGE IN YOUR MEDICAL CONDITION? NO . CHILLS NO . FEVER NO . INFECTION: DO YOU HAVE NEW INFECTIONS? NO . DO YOU HAVE HISTORY OF MRSA? NO . MUSCULOSKELETAL: ANY NEW PATTERNS OF PAIN OR NUMBNESS? NO . GASTROENTEROLOGY: ANY NEW CHANGE IN BOWEL CONTROL? NO . GENITOURINARY: ANY NEW CHANGE IN BLADDER CONTROL? NO . IS THERE A CHANCE YOU COULD BE ? NO . HEMATOLOGY/LYMPH: DO YOU TAKE ANY BLOOD THINNERS? (FOR EXAMPLE- COUMADIN, PLAVIX, AGGRENOX, PLATEL, PRADAXA, OR XARELTO) NO . WHEN WAS YOUR LAST DOSE? DATE: TIME: . NEUROLOGY: HAVE YOU FALLEN IN THE PAST 6 MONTHS? NO . ANY NEW EXTREMITY NUMBNESS OR WEAKNESS? NO . CARDIOLOGY: DO YOU HAVE A PACEMAKER OR DEFIBRILLATOR? NO . RESPIRATORY: HAVE YOU BEEN SICK IN THE PAST WEEK? NO . FEVER NO . FLU LIKE SYMPTOMS? NO . COUGH NO . INTEGUMENTARY: DO YOU HAVE ANY RASHES OR OPEN SORES? NO . ALLERGIC/IMMUNO: ARE YOU ALLERGIC TO SHELLFISH OR IV DYE? NO . ANY NEW ALLERGIES? NO . PSYCHIATRIC: DO YOU HAVE THOUGHTS OF HURTING YOURSELF OR SOMEONE ELSE? NO . ARE YOU ABUSED, NEGLECTED, OR IN AN UNSAFE ENVIRONMENT? NO . ENDOCRINOLOGY: ARE YOU DIABETIC? NO . OTHER: DO YOU NEED ANY PRESCRIPTIONS? NO . IF YES, PLEASE LIST: ____ . ANY NEW PROBLEMS WITH YOUR MEDICATIONS? NO . WHEN DID YOU LAST EAT? ____ . WHEN DID YOU LAST DRINK? ____ . WHAT DID YOU LAST DRINK? ____ . NAME OF PERSON DRIVING YOU HOME? ____ . DO YOU HAVE ANY OTHER QUESTIONS OR CONCERNS NO . VITAL SIGNS WT 202 LBS, HT 67 IN, BMI 31.63 INDEX, BP 160/96 MM HG, HR 95 /MIN, RR 16 /MIN, TEMP 96.4 F, OXYGEN SAT % 98%, NA INITIALS SC 10:46, REVIEWED BY: TRAV. EXAMINATION : PATIENT IS ALERT O X 3 AND COOPERATIVE. TENDERNESS IN LOWER BACK AND PARASPINAL MUSCLE GROUP. LIMPING FROM THE RIGHT LEG. RIGHT LEG WEAKER THEN THE LEFT AT EXTENSION AND FLEXION. MRI DONE ON 09/04/16 OF THE LUMBAR SPINE SHOWS POSTOPERATIVE CHANGES AND NEURAL FORAMINAL NARROWING AT L4-L5. ASSESSMENTS LUMBAR FACET ARTHROPATHY - M46.96 (PRIMARY) POSTLAMINECTOMY SYNDROME, NOT ELSEWHERE CLASSIFIED - M96.1 TREATMENT POSTLAMINECTOMY SYNDROME, NOT ELSEWHERE CLASSIFIED REFILL LYRICA CAPSULE, 75 MG, 1 CAPSULE, ORALLY, Q 8 HRS MDD=3, 30 DAY(S), 90, REFILLS 0, NOTES: 09/04 4AM REFILL PERCOCET TABLET, 5-325 MG, 1 TABLETS, ORALLY, DAILY NEEDED FOR PAIN MDD1, 10 DAY(S), 10, REFILLS 0, NOTES: 09/04 4AM CLINICAL NOTES: WE DISCUSSED SEVERAL ISSUES WITH MRS. ALMONTE'S PAIN MANAGEMENT CASE. AT THIS TIME THE PATIENT WILL REDUCE HER OXYCODONE AND INCREASE HER BUTRAN PATCH FROM .50 TO .75. PATIENT REPORTS USING LESS MEDICATION DUE TO THE RELIEF FROM THE LUMBAR EPIDURAL. PATIENT DENIES ABUSE OF THE MEDICATION, DENIES USE OF ILLEGAL SUBSTANCES, AND STATES SHE IS ONLY USING THE MEDICATION FOR PAIN MANAGEMENT. PATIENT REPORTS DOING VERY WELL FROM THE LUMBAR EPIDURAL AND SHE HAS INCREASED MOBILITY AND FUNCTIONALITY AND WAS ABLE TO DECREASE HER MEDICATION. HOWEVER, PATIENT REPORTS HAVING A LOT OF PAIN IN THE BACK AREA. THE DIAGNOSTIC LOW BACK TEST SUPPORT DOING RF. WE DISCUSSED DOING A RADIOFREQUENCY OVER THE RIGHT SIDE BECAUSE OF THE RESULTS SHE ACHIEVED FROM THE DIAGNOSTIC BLOCKS. WE DISCUSSED THE RISKS, BENEFITS, AND ALTERNATIVES OF THE INJECTION AND THE PATIENT WOULD LIKE TO PROCEED AT THIS TIME. WE ARE HOPING FOR LONG LASTING PAIN RELIEF FROM THIS AND THAT THE PATIENT WILL CONTINUE TO REDUCE THE USE OF NARCOTICS. PATIENT BROUGHT HER MEDS TO THIS APPOINTMENT. INSTRUCTIONS WERE GIVEN, QUESTIONS WERE ANSWERED, PATIENT REPORTS UNDERSTANDING AND AGREES WITH THE PLAN. I, DEBORAH WALL, DOCUMENTED THE ABOVE INFORMATION ACTING A SCRIBE FOR DR. ZEPEDA. I HAVE REVIEWED THE ABOVE DOCUMENT, WRITTEN BY DEBORAH KAISERIBKarissa AND I VERIFY THAT IT IS ACCURATE. OTHERS REFILL BUTRANS PATCH WEEKLY, 7.5 MCG/HR, 1 PATCH TO SKIN, TRANSDERMAL, WEEKLY, 30 DAY(S), 4, REFILLS 0, NOTES: 09/02 PREVENTIVE MEDICINE PAIN CLINIC TEACHING: PROCEDURE TEACHING PRE RADIOFREQUENCY FACET BLOCK INSTRUCTIONS REVIEWED WITH PT. VERBALIZED UNDERSTANDING.. PROCEDURE CODES FA211 ESTABILISHED PATIENT [facility] FACILITY CHARGE G8730 PAIN ASSESS POS TOOL F/U PLAN DOC [id number] DOC MEDS VERIFIED W/PT OR RE DISPOSITION & COMMUNICATION FOLLOW UP 4 WEEKS ELECTRONICALLY SIGNED BY HARRISON ZEPEDA MD ON 09/21/2017 AT 07:27 PM EST DISCLAIMER : THIS IS A VISIT SUMMARY EXTRACTED FROM THE [employer] CHART. IT IS NOT A COPY OF THE [employer] PROGRESS NOTE. GELACIO
== END ==
LOC: M PAIN 12:00
PROVIDERS: ATTEND Anesthesiology
DX: G89.29 Other chronic pain (principal); M46.96 Unspecified inflammatory spondylopathy, lumbar region; M96.1 Postlaminectomy syndrome, not elsewhere classified; F31.9 Bipolar disorder, unspecified; F41.9 Anxiety disorder, unspecified; F10.20 Alcohol dependence, uncomplicated; G43.909 Migraine, unspecified, not intractable, without status migrainosus; I73.00 Raynaud's syndrome without gangrene; J45.909 Unspecified asthma, uncomplicated; Z79.899 Other long term (current) drug therapy; F17.210 Nicotine dependence, cigarettes, uncomplicated; Z88.5 Allergy status to narcotic agent; Z91.040 Latex allergy status; Z88.8 Allergy status to other drugs, medicaments and biological substances

== ENCOUNTER → 2017-09-15 | Outpatient (CLI) | payer OTHER ==
--- NOTE | 2017-09-15 12:00 | REP ---
CHEST X-RAY: Two views. HISTORY: Preop evaluation Comparison chest x-ray is from September 11, 2016 and a May 20, 2016. FINDINGS: There is some linear fibrosis in the right perihilar region and right base. Right hemidiaphragm is slightly elevated. These findings are unchanged from September 11, 2016. There are also stable when compared with May 20, 2016. Remaining lung walker are clear. Pleural angles are sharp. There are clips in the right upper quadrant and left upper quadrant. Pulmonary vasculature is not increased. Heart is not enlarged. No bony abnormality is seen. IMPRESSION: Right mid lung field and right base linear fibrosis. Slightly elevated right hemidiaphragm. Unchanged from comparison study. No acute disease. Signed by Moshe Carmona MD 09/15/2017 12:39 P
== END ==
LOC: M LRY 10:12
PROVIDERS: ATTEND Family Medicine
DX: Z01.818 Encounter for other preprocedural examination (principal)

== ENCOUNTER → 2017-09-15 | Outpatient (REF) | payer OTHER ==
[2017-09-15 11:52] LABS: MEAN CORPUSCULAR HEMOGLOBIN 26.8 pg (27.0-33.0); MEAN CORPUSCULAR HGB CONC 31.6 g/dl (32.0-36.5); MEAN CORPUSCULAR VOLUME 84.9 fl (80.0-96.0); PLATELET COUNT, AUTOMATED 211 10^3/uL (150-450); WHITE BLOOD COUNT 5.8 10^3/uL (4.0-10.0)
[2017-09-15 12:03] LABS: INR 0.87
[2017-09-15 12:29] LABS: ALBUMIN 3.5 GM/DL (3.2-5.2); ALBUMIN/GLOBULIN RATIO 0.81 (1.00-1.93); ALKALINE PHOSPHATASE 166 U/L (45-117); ALT/SGPT 49 U/L (12-78); ANION GAP 9 MEQ/L (8-16); AST/SGOT 34 U/L (7-37); BILIRUBIN,TOTAL 0.2 MG/DL (0.2-1.0); BLOOD UREA NITROGEN 16 MG/DL (7-18); CALCIUM LEVEL 9.9 MG/DL (8.5-10.1); CARBON DIOXIDE LEVEL 25 MEQ/L (21-32); CHLORIDE LEVEL 105 MEQ/L (98-107); CREATININE FOR GFR 0.89 MG/DL (0.55-1.02); GLOMERULAR FILTRATION RATE > 60.0 (>60); GLUCOSE, FASTING 90 MG/DL (70-105); POTASSIUM SERUM 4.7 MEQ/L (3.5-5.1); SODIUM LEVEL 139 MEQ/L (136-145); TOTAL PROTEIN 7.8 GM/DL (6.4-8.2)
== END ==
LOC: M SFHCLERA 10:05
PROVIDERS: ATTEND Family Medicine
DX: Z01.818 Encounter for other preprocedural examination (principal)

== ENCOUNTER → 2017-09-24 | Outpatient (REF) | payer OTHER | LOC: M SFHCPLAZ 11:37 | PROVIDERS: ATTEND Internal Medicine Infectious Disease | DX: R05 Cough (principal) ==

== ENCOUNTER → 2017-09-26 | Outpatient (CLI) | payer OTHER | LOC: M PAIN 09:45 | DX: G89.29 Other chronic pain (principal); M96.1 Postlaminectomy syndrome, not elsewhere classified; M47.816 Spondylosis without myelopathy or radiculopathy, lumbar region; M47.817 Spondylosis without myelopathy or radiculopathy, lumbosacral region; F31.9 Bipolar disorder, unspecified; F41.9 Anxiety disorder, unspecified; F10.21 Alcohol dependence, in remission; G43.909 Migraine, unspecified, not intractable, without status migrainosus; F17.210 Nicotine dependence, cigarettes, uncomplicated; I73.00 Raynaud's syndrome without gangrene; D83.9 Common variable immunodeficiency, unspecified; J45.909 Unspecified asthma, uncomplicated; Z88.5 Allergy status to narcotic agent; Z91.040 Latex allergy status; Z88.8 Allergy status to other drugs, medicaments and biological substances; Z79.891 Long term (current) use of opiate analgesic; Z79.52 Long term (current) use of systemic steroids; Z79.899 Other long term (current) drug therapy; Z98.84 Bariatric surgery status | CPT/HCPCS: G0463 ==

== ENCOUNTER → 2017-10-07 | Outpatient (CLI) | payer OTHER ==
[2017-10-07 13:31] LABS: CHOLESTEROL LEVEL 241 MG/DL (<200); CHOLESTEROL RISK RATIO 2.591 (<5); HDL CHOLESTEROL 93 MG/DL (>40); LDL CHOLESTEROL 136.8 MG/DL (<100); NON-HDL-C 148 MG/DL; THYROID STIMULATING HORMONE 0.486 uIU/ML (0.358-3.740); TRIGLYCERIDES LEVEL 56 MG/DL (<150)
== END ==
LOC: M LAB 11:41
DX: R07.2 Precordial pain (principal); R00.2 Palpitations
CPT/HCPCS: 84443

== ENCOUNTER → 2017-10-17 | Outpatient (CLI) | payer OTHER | LOC: M PAIN 11:15 | DX: M96.1 Postlaminectomy syndrome, not elsewhere classified (principal); M47.816 Spondylosis without myelopathy or radiculopathy, lumbar region; M47.817 Spondylosis without myelopathy or radiculopathy, lumbosacral region; F31.9 Bipolar disorder, unspecified; F41.9 Anxiety disorder, unspecified; F10.10 Alcohol abuse, uncomplicated; F17.210 Nicotine dependence, cigarettes, uncomplicated; Z88.5 Allergy status to narcotic agent; Z88.8 Allergy status to other drugs, medicaments and biological substances; Z79.891 Long term (current) use of opiate analgesic; Z79.899 Other long term (current) drug therapy; Z91.040 Latex allergy status; Z98.84 Bariatric surgery status | CPT/HCPCS: G0463 ==

== ENCOUNTER → 2017-10-24 | Outpatient (CLI) | payer OTHER | LOC: M RAD 12:59 | DX: R06.00 Dyspnea, unspecified (principal) | CPT/HCPCS: 71046 ==

== ENCOUNTER → 2017-10-27 | Outpatient (CLI) | payer OTHER ==
[2017-10-27 13:24] LABS: ETHYL ALCOHOL (ETHANOL) < 0.003 % (0.000-0.010)
== END ==
LOC: M LAB 12:13
DX: F10.10 Alcohol abuse, uncomplicated (principal)
CPT/HCPCS: 80320

== ENCOUNTER → 2017-10-27 | Outpatient (CLI) | payer OTHER ==
[~2017-10-27] MED LIST changes: -/BACL20TA PO; -/LAMO10TA PO; -/METH500TA PO; -/ONDA4TA JT; -/PANT40TA OR; -/PANT40TA PO; -/PREG100CA PO; -/PROC25SU PO; -/QUET25TA PO; -ABIL15TA PO; -ADEK; -ADEK PO; -AMIT10TA PO; -AMIT25TA PO; -AMIT25TA10 PO; -AMIT50TA PO; -ANTA500T PO; -AUGM875T28 PO; -BACL10TA2 OR; -BACL1TAB9 PO; -BENT10CA PO; -BENZ1TA PO; -BIOT5000 PO; -BIOT50004 PO; -BIOTENE PO; -BOTO10VL IM; +BUPIVACAINE HCL 0.25% 30 ML VIAL As Ordered; -BUSP30TA PO; -BUTR10DI2 TD; -CALCIUM PO; -CALCLIQ4 PO; -CALCTAB68 PO; -CAMP333T PO; -CARA1SUS PO; -CARA1TAB2 PO; -CHAN1PAK9 PO; -CHLO500TA PO; -CIPR500T19 PO; -CLAR5CHW OR; -CLEO150C PO; -COLA50CA3 PO; -COLACE PO; -CYCL10TA PO; -CYCL10TA3 PO; -CYMB1CAP PO; -DHEA OR; -DHEA PO; -DICLOFENAC; -DIFL150T PO; -DOCQ100C PO; -DOXE150C7 PO; -DOXY-197 PO; -DOXY100C37 PO; -DOXY20TA OR; -DRAM25TA3 PO; -EQL400TA PO; -ESTR0.5T3 PV; -FENT12DI2 TD; -FENT75DI18 TD; -FERR325T OR; -FESO4 OR; -FLEX10TA2 PO; -FLUC10TA PO; -Fentanyl Patch TD; -Flexeril PO; -GABA-282 PO; -GABA-283 PO; -HYDRPOW48 XX; -IMIT4KIT SC; -IMIT4KIT2 SC; -IMIT50TA PO; -IRON325T3 PO; +ISOVUE-M 300 61% 15ML VIAL (Q9967) As Ordered; -Imitrex PO; -KETO30VL PO; -KLON1TAB OR; -KLON1TAB PO; -LAMI1TAB6 PO; -LASI20TA PO; -LATU1TAB PO; +LIDOCAINE 1% SDV INJ 30 ML VIAL As Ordered; -LORA10TA2 PO; -LUNE3TAB36 PO; -LYRI150C PO; -LYRI225C PO; -LYRI75CA PO; -MAGN250T PO; -MAPA325T2 PO; -MEGE40TA18 PO; -MIRA0.5T PO; -MULT1TAB10 PO; -MULTCAP11 PO; -MULTTAB24 PO; -MULTTAB4 PO; -NARA2.5T PO; -NICO21DI24 TD; -NIFE10CA2 PO; -NORC5TAB PO; -NORCO OR; -NORT50CA PO; -OMEP20CA3 PO; -OMEP40CA2 PO; -OXYC-517 PO; -OXYC1SOL3 PO; -OXYC5CAP2 PO; -OXYC5TAB2 PO; -OYST500T50 PO; -PERC5TAB12 PO; -PERCTAB PO; -PREG50CA PO; -PREM0.45 PO; -PROBCAP4 PO; -PROC10CA PO; -PROC30TA PO; -PROC90TA PO; -PROM-190 PO; -PROM25TA PO; -PROT1TAB2 PO; -PROTPAK PO; -PROZ20CA11 PO; -PROZ40CA OR; -PYRI1TAB5 PO; -RITA10TA PO; -RITA20CA PO; -ROBA750T4 PO; -SAPH1SUB10 SL; -SAPH1SUB9 SL; -SENN8.6C PO; -SERO200T PO; -SERO50TA PO; -SOMA350T OR; -STRA80CA PO; -SUCR1TA PO; -TIZA4CAP3 PO; -TIZA4TAB3 PO; +TRIAMCINOLONE ACETONIDE SUSP 40 MG/ML VIAL (J3301) As Ordered; -TRIL1TAB PO; -TRIL300S PO; -TYLE325T5 PO; -TYLE500T78 PO; -Tylenol PO; -VALI10TA PO; -VALI5TAB PO; -VARE1TA PO; -VENTAER INH; -VIBR100C OR; -VICO5TAB; -VIST25CA PO; -VIST50CA PO; -VIT B12 PO; -VITA100037 PO; -VITA100067 PO; -VITA500T PO; -VITATAB11 PO; -VYVA50CA PO; -VYVA70CA3 PO; -XANA0.5T OR; -ZETONNA; -ZOFR20TA PO; -ZOFR4SOL PO; -ZOFRAN PO; -ZOLO100T PO; -ZYPR10TA PO; -ZYRT10CA PO; -[UNRECOGNIZED DRUG - CODE]; -[UNRECOGNIZED DRUG - CODE]; -[UNRECOGNIZED DRUG - CODE] IV; -[UNRECOGNIZED DRUG - CODE] OR; -[UNRECOGNIZED DRUG - CODE] PO; -[UNRECOGNIZED DRUG - CODE] PO; -[UNRECOGNIZED DRUG - CODE] PO; -[UNRECOGNIZED DRUG - CODE] PO; -[UNRECOGNIZED DRUG - CODE] PR; -[UNRECOGNIZED DRUG - CODE] TOP; -[UNRECOGNIZED DRUG - OTHER] PO; -[UNRECOGNIZED DRUG - OTHER] PO; -[UNRECOGNIZED DRUG - OTHER] PO; -[UNRECOGNIZED DRUG - OTHER] PO; -anexsia PO; -atarax PO; -calci; -phenergan PO; -voltaren gel; -voltaren gel 1% TOP
== END ==
LOC: M PAIN 14:00
DX: G89.29 Other chronic pain (principal); M47.816 Spondylosis without myelopathy or radiculopathy, lumbar region; M47.817 Spondylosis without myelopathy or radiculopathy, lumbosacral region; E78.5 Hyperlipidemia, unspecified; F31.9 Bipolar disorder, unspecified; F41.9 Anxiety disorder, unspecified; F10.21 Alcohol dependence, in remission; F17.200 Nicotine dependence, unspecified, uncomplicated; I73.00 Raynaud's syndrome without gangrene; D83.9 Common variable immunodeficiency, unspecified; Z79.899 Other long term (current) drug therapy; Z88.5 Allergy status to narcotic agent; Z88.8 Allergy status to other drugs, medicaments and biological substances; Z91.040 Latex allergy status
CPT/HCPCS: J3301

== ENCOUNTER → 2017-11-05 | Outpatient (CLI) | payer OTHER | LOC: M CARPUL 09:23 | DX: R06.00 Dyspnea, unspecified (principal) | CPT/HCPCS: 94060 ==

== ENCOUNTER → 2017-11-14 | Outpatient (CLI) | payer OTHER | LOC: M PAIN 11:15 | DX: M47.816 Spondylosis without myelopathy or radiculopathy, lumbar region (principal); M47.817 Spondylosis without myelopathy or radiculopathy, lumbosacral region; F17.210 Nicotine dependence, cigarettes, uncomplicated; Z79.891 Long term (current) use of opiate analgesic; Z79.899 Other long term (current) drug therapy; Z88.5 Allergy status to narcotic agent; Z88.8 Allergy status to other drugs, medicaments and biological substances; Z91.040 Latex allergy status; Z98.84 Bariatric surgery status | CPT/HCPCS: G0463 ==

== ENCOUNTER → 2017-11-14 | Outpatient (CLI) | payer OTHER ==
[2017-11-14 11:45] LABS: ETHYL ALCOHOL (ETHANOL) 0.003 % (0.000-0.010)
== END ==
LOC: M LAB 10:39
DX: F10.20 Alcohol dependence, uncomplicated (principal)
CPT/HCPCS: 80320

== ENCOUNTER → 2017-11-18 | Outpatient (CLI) | payer OTHER | LOC: M SLEEP 19:23 | DX: G47.33 Obstructive sleep apnea (adult) (pediatric) (principal) | CPT/HCPCS: 95810 ==

== ENCOUNTER → 2017-11-28 | Outpatient (CLI) | payer OTHER ==
[2017-11-28 15:30] LABS: BASO # 0.1 10^3/uL (0.0-0.2); EOS # 0.1 10^3/uL (0.0-0.50); EOS % 1.6 % (0.0-3.0); HEMATOCRIT 30.6 % (36.0-47.0); HEMOGLOBIN 9.4 g/dl (12.0-16.0); IMMATURE GRANULOCYTE % 0.2 % (0-3.0); LYMPH # 1.9 10^3/uL (1.5-4.5); LYMPH % 38.1 % (24.0-44.0); MEAN CORPUSCULAR HEMOGLOBIN 25.9 pg (27.0-33.0); MEAN CORPUSCULAR HGB CONC 30.7 g/dl (32.0-36.5); MEAN CORPUSCULAR VOLUME 84.3 fl (80.0-96.0); MONO # 0.3 10^3/uL (0.0-0.8); MONO % 6.1 % (0.0-5.0); NEUTROPHILS # 2.6 10^3/uL (1.8-7.7); PLATELET COUNT, AUTOMATED 189 10^3/uL (150-450); RED BLOOD COUNT 3.63 10^6/uL (4.00-5.40); RED CELL DISTRIBUTION WIDTH 15.7 % (11.5-14.5); WHITE BLOOD COUNT 4.9 10^3/uL (4.0-10.0)
[2017-11-28 15:51] LABS: ALBUMIN 3.7 GM/DL (3.2-5.2); ALBUMIN/GLOBULIN RATIO 1.06 (1.00-1.93); ALKALINE PHOSPHATASE 135 U/L (45-117); ALT/SGPT 28 U/L (12-78); ANION GAP 5 MEQ/L (8-16); AST/SGOT 27 U/L (7-37); BILIRUBIN,TOTAL 0.3 MG/DL (0.2-1.0); BLOOD UREA NITROGEN 10 MG/DL (7-18); CALCIUM LEVEL 8.8 MG/DL (8.5-10.1); CARBON DIOXIDE LEVEL 27 MEQ/L (21-32); CHLORIDE LEVEL 111 MEQ/L (98-107); CREATININE FOR GFR 0.68 MG/DL (0.55-1.30); GLOMERULAR FILTRATION RATE > 60.0 (>60); GLUCOSE, FASTING 81 MG/DL (70-100); IMMUNOGLOBULIN G 1000 MG/DL (681-1648); POTASSIUM SERUM 4.4 MEQ/L (3.5-5.1); SODIUM LEVEL 143 MEQ/L (136-145); TOTAL PROTEIN 7.2 GM/DL (6.4-8.2)
== END ==
LOC: M LAB 14:47
DX: D83.9 Common variable immunodeficiency, unspecified (principal)
CPT/HCPCS: 80053

== ENCOUNTER → 2017-12-02 | Outpatient (CLI) | payer OTHER ==
[~2017-12-02] MED LIST changes: -TRIAMCINOLONE ACETONIDE SUSP 40 MG/ML VIAL (J3301) As Ordered
== END | disposition home or self-care (01) ==
LOC: M PAIN 11:45
DX: G89.29 Other chronic pain (principal); M47.816 Spondylosis without myelopathy or radiculopathy, lumbar region; M47.817 Spondylosis without myelopathy or radiculopathy, lumbosacral region; Z98.84 Bariatric surgery status; Z78.0 Asymptomatic menopausal state; F33.9 Major depressive disorder, recurrent, unspecified; F41.9 Anxiety disorder, unspecified; F10.10 Alcohol abuse, uncomplicated; G43.909 Migraine, unspecified, not intractable, without status migrainosus; F90.9 Attention-deficit hyperactivity disorder, unspecified type; I73.00 Raynaud's syndrome without gangrene; J45.909 Unspecified asthma, uncomplicated; R01.1 Cardiac murmur, unspecified; D83.9 Common variable immunodeficiency, unspecified; Z79.899 Other long term (current) drug therapy; Z88.5 Allergy status to narcotic agent; Z88.8 Allergy status to other drugs, medicaments and biological substances; Z91.040 Latex allergy status; F17.210 Nicotine dependence, cigarettes, uncomplicated
CPT/HCPCS: Q9967

== ENCOUNTER → 2017-12-10 | Outpatient (CLI) | payer OTHER ==
[2017-12-10 16:14] LABS: HEMATOCRIT 34.2 % (36.0-47.0); HEMOGLOBIN 10.7 g/dl (12.0-16.0); MEAN CORPUSCULAR HEMOGLOBIN 26.8 pg (27.0-33.0); MEAN CORPUSCULAR HGB CONC 31.3 g/dl (32.0-36.5); MEAN CORPUSCULAR VOLUME 85.5 fl (80.0-96.0); PLATELET COUNT, AUTOMATED 200 10^3/uL (150-450); WHITE BLOOD COUNT 5.6 10^3/uL (4.0-10.0)
[2017-12-10 16:22] LABS: INR 0.91; PROTHROMBIN TIME 12.3 SECONDS (12.4-14.5)
[2017-12-10 16:23] LABS: PARTIAL THROMBOPLASTIN TIME 27.6 SECONDS (26.8-37.9)
[2017-12-10 16:25] LABS: ETHYL ALCOHOL (ETHANOL) < 0.003 % (0.000-0.010)
== END ==
LOC: M LAB 15:28
DX: F10.20 Alcohol dependence, uncomplicated (principal)
CPT/HCPCS: 80320

== ENCOUNTER → 2017-12-10 | Outpatient (CLI) | payer OTHER | LOC: M PAIN 14:15 | DX: M47.816 Spondylosis without myelopathy or radiculopathy, lumbar region (principal); M96.1 Postlaminectomy syndrome, not elsewhere classified; G43.909 Migraine, unspecified, not intractable, without status migrainosus; Z79.899 Other long term (current) drug therapy; Z98.84 Bariatric surgery status; Z88.8 Allergy status to other drugs, medicaments and biological substances; Z91.040 Latex allergy status | CPT/HCPCS: G0463 ==

== ENCOUNTER → 2017-12-15 | Outpatient (CLI) | payer OTHER ==
[2017-12-15 11:34] LABS: HEMATOCRIT 37.3 % (36.0-47.0); HEMOGLOBIN 11.5 g/dl (12.0-16.0); MEAN CORPUSCULAR HEMOGLOBIN 26.4 pg (27.0-33.0); MEAN CORPUSCULAR HGB CONC 30.8 g/dl (32.0-36.5); MEAN CORPUSCULAR VOLUME 85.6 fl (80.0-96.0); PLATELET COUNT, AUTOMATED 208 10^3/uL (150-450); RED BLOOD COUNT 4.36 10^6/uL (4.00-5.40); RED CELL DISTRIBUTION WIDTH 20.3 % (11.5-14.5); WHITE BLOOD COUNT 4.9 10^3/uL (4.0-10.0)
[2017-12-15 12:11] LABS: FERRITIN 33 NG/ML (8-252); IRON (FE) 46 UG/DL (50-170); PERCENT SATURATION 8.7 % (13.2-45.0); TOTAL IRON BINDING CAPACITY 531 UG/DL (250-450)
== END ==
LOC: M LAB 11:17
DX: D50.8 Other iron deficiency anemias (principal)
CPT/HCPCS: 83550

== ENCOUNTER 2017-12-19 10:48 | Inpatient (IN) | payer OTHER ==
[2017-12-19] MEDS: **UNRESOLVED NON-FORMULARY MED ORDER XX (00:01)
[2017-12-19] MEDS ORDERED: LIDOCAINE 1% MDV 20ML VIAL SQ (11:00)
[2017-12-19 11:14] LABS: HEMATOCRIT 33.8 % (36.0-47.0); HEMOGLOBIN 10.6 g/dl (12.0-16.0); MEAN CORPUSCULAR HEMOGLOBIN 27.2 pg (27.0-33.0); MEAN CORPUSCULAR HGB CONC 31.4 g/dl (32.0-36.5); MEAN CORPUSCULAR VOLUME 86.7 fl (80.0-96.0); PLATELET COUNT, AUTOMATED 160 10^3/uL (150-450); RED CELL DISTRIBUTION WIDTH 20.5 % (11.5-14.5); WHITE BLOOD COUNT 5.3 10^3/uL (4.0-10.0)
[2017-12-19] MEDS: LR 1,000 ML IV ×3 (11:37→15:45)
[2017-12-19] MEDS: ZOSYN 3.375 GM VIAL (J2543) As Ordered (13:44)
[2017-12-19] MEDS: BUPIVACAINE HCL 0.25% 30 ML VIAL As Ordered (14:50)
[2017-12-19] MEDS: fentaNYL 100 MCG/2 ML INJECTION (J3010) IV ×8 (16:03→16:45)
[2017-12-19] MEDS: ONDANSETRON 4MG/2ML VIAL (J2405) IV ×2 (16:04→20:01)
[2017-12-19] MEDS: PERCOCET 5MG/325MG TAB PO ×2 (16:14→20:04)
[2017-12-19] MEDS: LOSARTAN 50 MG TAB PO (20:02)
[2017-12-19] MEDS: PREGABALIN 75 MG CAP(LYRICA) PO (20:02)
[2017-12-19] MEDS: busPIRone 10 MG TAB PO (20:04)
[2017-12-20] MEDS: **UNRESOLVED NON-FORMULARY MED ORDER XX (00:01)
[2017-12-20] MEDS: PERCOCET 5MG/325MG TAB PO ×6 (05:35→22:41)
[2017-12-20 06:42] LABS: HEMATOCRIT 33.9 % (36.0-47.0); HEMOGLOBIN 10.6 g/dl (12.0-16.0); MEAN CORPUSCULAR HEMOGLOBIN 27.1 pg (27.0-33.0); MEAN CORPUSCULAR HGB CONC 31.3 g/dl (32.0-36.5); MEAN CORPUSCULAR VOLUME 86.7 fl (80.0-96.0); PLATELET COUNT, AUTOMATED 161 10^3/uL (150-450); RED BLOOD COUNT 3.91 10^6/uL (4.00-5.40); RED CELL DISTRIBUTION WIDTH 20.8 % (11.5-14.5); WHITE BLOOD COUNT 7.8 10^3/uL (4.0-10.0)
[2017-12-20] MEDS: PANTOPRAZOLE 40MG TAB (PROTONIX) PO (09:12)
[2017-12-20] MEDS: PREGABALIN 75 MG CAP(LYRICA) PO ×3 (09:12→21:19)
[2017-12-20] MEDS: busPIRone 10 MG TAB PO ×2 (09:12→21:19)
[2017-12-20] MEDS: IBUPROFEN 800 MG TAB PO ×2 (09:16→21:23)
[2017-12-20] MEDS: PROMETHAZINE INJ 25 MG/ML VIAL (J2550) IV ×2 (12:02→19:34)
[2017-12-20] MEDS: LOSARTAN 50 MG TAB PO (21:00)
[2017-12-21] MEDS: PROMETHAZINE INJ 25 MG/ML VIAL (J2550) IV (01:56)
[2017-12-21] MEDS: PERCOCET 5MG/325MG TAB PO ×2 (03:04→08:12)
[2017-12-21] MEDS: IBUPROFEN 800 MG TAB PO (06:13)
[2017-12-21] MEDS: PREGABALIN 75 MG CAP(LYRICA) PO (08:12)
[2017-12-21] MEDS: busPIRone 10 MG TAB PO (08:12)
[2017-12-21] MEDS: PANTOPRAZOLE 40MG TAB (PROTONIX) PO (08:12)
== END 2017-12-21 10:40 | disposition home or self-care (01) | DRG 518 ==
LOC: M SDC 10:48 → M MS5PR 17:02 → M SDC 17:02 → M MS5PR 10:48
PROC: 0DNW4ZZ Release Peritoneum, Percutaneous Endoscopic Approach (ICD-10-PCS; principal; 2017-12-19 12:49)
PROC: 0DN84ZZ Release Small Intestine, Percutaneous Endoscopic Approach (ICD-10-PCS; 2017-12-19 12:49)
PROC: 0WJG4ZZ Inspection of Peritoneal Cavity, Percutaneous Endoscopic Approach (ICD-10-PCS; 2017-12-19 12:49)
DX: N80.3 Endometriosis of pelvic peritoneum (principal); K56.50 Intestinal adhesions [bands], unspecified as to partial versus complete obstruction; Z79.899 Other long term (current) drug therapy; Z88.5 Allergy status to narcotic agent; Z88.8 Allergy status to other drugs, medicaments and biological substances; Z91.040 Latex allergy status; J45.909 Unspecified asthma, uncomplicated; G43.909 Migraine, unspecified, not intractable, without status migrainosus; M54.5 Low back pain; M54.2 Cervicalgia; F31.9 Bipolar disorder, unspecified; F41.9 Anxiety disorder, unspecified; F17.210 Nicotine dependence, cigarettes, uncomplicated; F10.21 Alcohol dependence, in remission

== ENCOUNTER → 2017-12-25 | Outpatient (REF) | payer OTHER ==
[2017-12-25 16:52] LABS: ALBUMIN 2.4 GM/DL (3.2-5.2); ALBUMIN/GLOBULIN RATIO 0.63 (1.00-1.93); ALKALINE PHOSPHATASE 148 U/L (45-117); ALT/SGPT 15 U/L (12-78); ANION GAP 8 MEQ/L (8-16); AST/SGOT 18 U/L (7-37); BILIRUBIN,TOTAL 0.5 MG/DL (0.2-1.0); BLOOD UREA NITROGEN 8 MG/DL (7-18); CALCIUM LEVEL 8.5 MG/DL (8.5-10.1); CARBON DIOXIDE LEVEL 26 MEQ/L (21-32); CHLORIDE LEVEL 103 MEQ/L (98-107); CREATININE FOR GFR 0.49 MG/DL (0.55-1.30); GLOMERULAR FILTRATION RATE > 60.0 (>60); GLUCOSE, FASTING 76 MG/DL (70-100); POTASSIUM SERUM 4.1 MEQ/L (3.5-5.1); SODIUM LEVEL 137 MEQ/L (136-145); TOTAL PROTEIN 6.2 GM/DL (6.4-8.2)
[2017-12-25 16:58] LABS: THYROID STIMULATING HORMONE 0.416 uIU/ML (0.358-3.740)
[2017-12-25 17:14] LABS: BASO % 0.2 % (0.0-1.0); EOS # 0.1 10^3/uL (0.0-0.50); EOS % 1.6 % (0.0-3.0); HEMATOCRIT 31.1 % (36.0-47.0); HEMOGLOBIN 9.8 g/dl (12.0-16.0); LYMPH # 1.2 10^3/uL (1.5-4.5); MEAN CORPUSCULAR HEMOGLOBIN 26.7 pg (27.0-33.0); MEAN CORPUSCULAR HGB CONC 31.5 g/dl (32.0-36.5); MEAN CORPUSCULAR VOLUME 84.7 fl (80.0-96.0); MONO # 0.5 10^3/uL (0.0-0.8); NEUTROPHILS # 3.2 10^3/uL (1.8-7.7); NEUTROPHILS % 64.2 % (36.0-66.0); PLATELET COUNT, AUTOMATED 176 10^3/uL (150-450); RED BLOOD COUNT 3.67 10^6/uL (4.00-5.40); RED CELL DISTRIBUTION WIDTH 20.3 % (11.5-14.5)
== END ==
LOC: M SFHCLERA 11:02
DX: D64.9 Anemia, unspecified (principal); R41.82 Altered mental status, unspecified
CPT/HCPCS: 84443

== ENCOUNTER → 2018-01-07 | Outpatient (CLI) | payer OTHER | LOC: M PAIN 09:00 | DX: M47.816 Spondylosis without myelopathy or radiculopathy, lumbar region (principal); M96.1 Postlaminectomy syndrome, not elsewhere classified; E78.5 Hyperlipidemia, unspecified; F31.9 Bipolar disorder, unspecified; F41.9 Anxiety disorder, unspecified; F10.10 Alcohol abuse, uncomplicated; G43.909 Migraine, unspecified, not intractable, without status migrainosus; F17.210 Nicotine dependence, cigarettes, uncomplicated; I73.00 Raynaud's syndrome without gangrene; D83.9 Common variable immunodeficiency, unspecified; J45.909 Unspecified asthma, uncomplicated; R01.1 Cardiac murmur, unspecified; Z79.899 Other long term (current) drug therapy; Z88.5 Allergy status to narcotic agent; Z88.8 Allergy status to other drugs, medicaments and biological substances; Z91.040 Latex allergy status; Z98.84 Bariatric surgery status | CPT/HCPCS: G0463 ==

== ENCOUNTER → 2018-01-08 | Outpatient (REF) | payer OTHER | LOC: M SFHCLERA 11:21 | DX: R30.0 Dysuria (principal) ==

== ENCOUNTER → 2018-01-27 | Outpatient (CLI) | payer OTHER | LOC: M PAIN 08:45 | DX: G89.29 Other chronic pain (principal); M47.816 Spondylosis without myelopathy or radiculopathy, lumbar region; M47.817 Spondylosis without myelopathy or radiculopathy, lumbosacral region; F31.9 Bipolar disorder, unspecified; F41.9 Anxiety disorder, unspecified; G43.909 Migraine, unspecified, not intractable, without status migrainosus; D83.9 Common variable immunodeficiency, unspecified; J32.9 Chronic sinusitis, unspecified; I73.00 Raynaud's syndrome without gangrene; J45.909 Unspecified asthma, uncomplicated; F17.210 Nicotine dependence, cigarettes, uncomplicated; Z88.5 Allergy status to narcotic agent; Z88.8 Allergy status to other drugs, medicaments and biological substances; Z91.040 Latex allergy status | CPT/HCPCS: Q9967 ==

== ENCOUNTER → 2018-02-13 | Outpatient (CLI) | payer OTHER ==
[2018-02-13 14:24] LABS: HEMATOCRIT 35.9 % (36.0-47.0); HEMOGLOBIN 11.5 g/dl (12.0-15.5); MEAN CORPUSCULAR VOLUME 87.3 fl (80.0-96.0); PLATELET COUNT, AUTOMATED 199 10^3/uL (150-450); RED BLOOD COUNT 4.11 10^6/uL (4.00-5.40); RED CELL DISTRIBUTION WIDTH 21.2 % (11.5-14.5); WHITE BLOOD COUNT 5.2 10^3/uL (4.0-10.0)
[2018-02-13 15:10] LABS: TOTAL T3 128.5 NG/DL (60.0-181.0)
[2018-02-13 15:11] LABS: ALBUMIN 3.6 GM/DL (3.2-5.2); ALKALINE PHOSPHATASE 115 U/L (45-117); ALT/SGPT 23 U/L (12-78); ANION GAP 4 MEQ/L (8-16); AST/SGOT 22 U/L (7-37); BILIRUBIN,TOTAL 0.4 MG/DL (0.2-1.0); BLOOD UREA NITROGEN 13 MG/DL (7-18); CARBON DIOXIDE LEVEL 30 MEQ/L (21-32); CHLORIDE LEVEL 106 MEQ/L (98-107); FREE T4 0.95 NG/DL (0.76-1.46); GLOMERULAR FILTRATION RATE > 60.0 (>60); GLUCOSE, FASTING 80 MG/DL (70-100); IRON (FE) 49 UG/DL (50-170); PERCENT SATURATION 11.9 % (13.2-45.0); POTASSIUM SERUM 4.3 MEQ/L (3.5-5.1); SODIUM LEVEL 140 MEQ/L (136-145); THYROID STIMULATING HORMONE 0.617 uIU/ML (0.358-3.740); THYROXINE (T4) 9.1 UG/DL (4.5-12.0); TOTAL IRON BINDING CAPACITY 411 UG/DL (250-450); TOTAL PROTEIN 7.2 GM/DL (6.4-8.2)
[2018-02-13 15:12] LABS: ETHYL ALCOHOL (ETHANOL) < 0.003 % (0.000-0.010)
== END ==
LOC: M LAB 13:26
DX: F10.10 Alcohol abuse, uncomplicated (principal)
CPT/HCPCS: 80320

== ENCOUNTER → 2018-02-17 | Outpatient (CLI) | payer OTHER | LOC: M PAIN 08:30 | DX: M47.816 Spondylosis without myelopathy or radiculopathy, lumbar region (principal); M47.817 Spondylosis without myelopathy or radiculopathy, lumbosacral region; F31.9 Bipolar disorder, unspecified; F41.9 Anxiety disorder, unspecified; F10.10 Alcohol abuse, uncomplicated; G43.909 Migraine, unspecified, not intractable, without status migrainosus; I73.00 Raynaud's syndrome without gangrene; D83.9 Common variable immunodeficiency, unspecified; J45.909 Unspecified asthma, uncomplicated; R01.1 Cardiac murmur, unspecified; F17.210 Nicotine dependence, cigarettes, uncomplicated; Z79.891 Long term (current) use of opiate analgesic; Z79.899 Other long term (current) drug therapy; Z88.5 Allergy status to narcotic agent; Z88.8 Allergy status to other drugs, medicaments and biological substances; Z91.040 Latex allergy status; Z98.84 Bariatric surgery status | CPT/HCPCS: G0463 ==

== ENCOUNTER → 2018-02-26 | Outpatient (CLI) | payer OTHER | LOC: M SLEEP 19:22 | DX: G47.33 Obstructive sleep apnea (adult) (pediatric) (principal) | CPT/HCPCS: 95811 ==

== ENCOUNTER → 2018-03-09 | Outpatient (CLI) | payer OTHER ==
[~2018-03-09] MED LIST changes: -ISOVUE-M 300 61% 15ML VIAL (Q9967) As Ordered; +TRIAMCINOLONE ACETONIDE SUSP 40 MG/ML VIAL (J3301) As Ordered
== END ==
LOC: M PAIN 14:00
DX: G89.29 Other chronic pain (principal); M47.816 Spondylosis without myelopathy or radiculopathy, lumbar region; M47.817 Spondylosis without myelopathy or radiculopathy, lumbosacral region; E78.5 Hyperlipidemia, unspecified; F31.9 Bipolar disorder, unspecified; F41.9 Anxiety disorder, unspecified; G43.909 Migraine, unspecified, not intractable, without status migrainosus; F10.21 Alcohol dependence, in remission; I73.00 Raynaud's syndrome without gangrene; D83.9 Common variable immunodeficiency, unspecified; R01.1 Cardiac murmur, unspecified; F17.210 Nicotine dependence, cigarettes, uncomplicated; Z79.891 Long term (current) use of opiate analgesic; Z79.899 Other long term (current) drug therapy; Z88.5 Allergy status to narcotic agent; Z91.040 Latex allergy status; Z88.8 Allergy status to other drugs, medicaments and biological substances
CPT/HCPCS: J3301

== ENCOUNTER → 2018-03-16 | Outpatient (CLI) | payer OTHER | LOC: M SMT 13:54 | DX: S99.921A Unspecified injury of right foot, initial encounter (principal); X58.XXXA Exposure to other specified factors, initial encounter; Y92.9 Unspecified place or not applicable; Y93.9 Activity, unspecified | CPT/HCPCS: 73630 ==

== ENCOUNTER → 2018-03-16 | Outpatient (CLI) | payer OTHER ==
[2018-03-16 17:30] LABS: ALBUMIN 3.8 GM/DL (3.2-5.2); ALBUMIN/GLOBULIN RATIO 1.12 (1.00-1.93); ALKALINE PHOSPHATASE 138 U/L (45-117); ALT/SGPT 23 U/L (12-78); ANION GAP 8 MEQ/L (8-16); AST/SGOT 22 U/L (7-37); BILIRUBIN,TOTAL 0.2 MG/DL (0.2-1.0); BLOOD UREA NITROGEN 14 MG/DL (7-18); CALCIUM LEVEL 9.4 MG/DL (8.5-10.1); CARBON DIOXIDE LEVEL 26 MEQ/L (21-32); CHLORIDE LEVEL 108 MEQ/L (98-107); CREATININE FOR GFR 1.03 MG/DL (0.55-1.30); ETHYL ALCOHOL (ETHANOL) < 0.003 % (0.000-0.010); GLOMERULAR FILTRATION RATE > 60.0 (>60); GLUCOSE, FASTING 82 MG/DL (70-100); POTASSIUM SERUM 4.4 MEQ/L (3.5-5.1); SODIUM LEVEL 142 MEQ/L (136-145); TOTAL PROTEIN 7.2 GM/DL (6.4-8.2)
[2018-03-16 19:35] LABS: HEMOGLOBIN 12.1 g/dl (12.0-15.5); RED BLOOD COUNT 4.17 10^6/uL (4.00-5.40); WHITE BLOOD COUNT 6.4 10^3/uL (4.0-10.0)
[2018-03-16 19:36] LABS: HEMATOCRIT 38.3 % (36.0-47.0); MEAN CORPUSCULAR HGB CONC 31.6 g/dl (32.0-36.5); MEAN CORPUSCULAR VOLUME 91.8 fl (80.0-96.0); PLATELET COUNT, AUTOMATED 235 10^3/uL (150-450); RED CELL DISTRIBUTION WIDTH 17.2 % (11.5-14.5)
== END ==
LOC: M SMT 13:57
DX: F10.10 Alcohol abuse, uncomplicated (principal)
CPT/HCPCS: 80320

== ENCOUNTER → 2018-03-16 | Outpatient (CLI) | payer OTHER ==
[2018-03-16 17:31] LABS: ALBUMIN 3.8 GM/DL (3.2-5.2); ALBUMIN/GLOBULIN RATIO 1.12 (1.00-1.93); ALKALINE PHOSPHATASE 138 U/L (45-117); ALT/SGPT 25 U/L (12-78); ANION GAP 7 MEQ/L (8-16); AST/SGOT 17 U/L (7-37); BILIRUBIN,TOTAL 0.3 MG/DL (0.2-1.0); BLOOD UREA NITROGEN 14 MG/DL (7-18); CALCIUM LEVEL 9.3 MG/DL (8.5-10.1); CARBON DIOXIDE LEVEL 25 MEQ/L (21-32); CHLORIDE LEVEL 109 MEQ/L (98-107); CREATININE FOR GFR 1.05 MG/DL (0.55-1.30); GLOMERULAR FILTRATION RATE > 60.0 (>60); GLUCOSE, FASTING 85 MG/DL (70-100); IMMUNOGLOBULIN G 965 MG/DL (681-1648); POTASSIUM SERUM 4.7 MEQ/L (3.5-5.1); SODIUM LEVEL 141 MEQ/L (136-145); TOTAL PROTEIN 7.2 GM/DL (6.4-8.2)
[2018-03-16 18:22] LABS: BASO # 0.1 10^3/uL (0.0-0.2); BASO % 0.8 % (0.0-1.0); EOS # 0.2 10^3/uL (0.0-0.50); EOS % 2.3 % (0.0-3.0); HEMATOCRIT 38.3 % (36.0-47.0); HEMOGLOBIN 12.1 g/dl (12.0-15.5); IMMATURE GRANULOCYTE % 0.3 % (0-3.0); LYMPH # 2.4 10^3/uL (1.5-4.5); LYMPH % 37.9 % (24.0-44.0); MEAN CORPUSCULAR HGB CONC 31.6 g/dl (32.0-36.5); MEAN CORPUSCULAR VOLUME 91.8 fl (80.0-96.0); MONO # 0.3 10^3/uL (0.0-0.8); NEUTROPHILS # 3.4 10^3/uL (1.8-7.7); NEUTROPHILS % 53.7 % (36.0-66.0); PLATELET COUNT, AUTOMATED 235 10^3/uL (150-450); RED BLOOD COUNT 4.17 10^6/uL (4.00-5.40); RED CELL DISTRIBUTION WIDTH 17.2 % (11.5-14.5); WHITE BLOOD COUNT 6.4 10^3/uL (4.0-10.0)
== END ==
LOC: M SMT 14:01
DX: D83.9 Common variable immunodeficiency, unspecified (principal)
CPT/HCPCS: 80053

== ENCOUNTER → 2018-03-23 | Outpatient (CLI) | payer OTHER | LOC: M PAIN 14:00 | DX: M47.816 Spondylosis without myelopathy or radiculopathy, lumbar region (principal); M47.817 Spondylosis without myelopathy or radiculopathy, lumbosacral region; M79.1 Myalgia; G43.709 Chronic migraine without aura, not intractable, without status migrainosus; F17.210 Nicotine dependence, cigarettes, uncomplicated; D83.9 Common variable immunodeficiency, unspecified; Z79.899 Other long term (current) drug therapy; Z88.5 Allergy status to narcotic agent; Z88.8 Allergy status to other drugs, medicaments and biological substances; Z91.040 Latex allergy status; Z98.84 Bariatric surgery status | CPT/HCPCS: G0463 ==

== ENCOUNTER → 2018-04-06 | Outpatient (CLI) | payer OTHER ==
[~2018-04-06] MED LIST changes: +BUPIVACAINE HCL 0.25% 10 ML VIAL As Ordered; -LIDOCAINE 1% SDV INJ 30 ML VIAL As Ordered; +diazePAM 5 MG TAB As Ordered; +oxyCODONE 5MG TAB As Ordered
== END ==
LOC: M PAIN 10:00
DX: G89.29 Other chronic pain (principal); M79.1 Myalgia; M54.6 Pain in thoracic spine; F31.9 Bipolar disorder, unspecified; F41.9 Anxiety disorder, unspecified; F10.10 Alcohol abuse, uncomplicated; I73.00 Raynaud's syndrome without gangrene; D83.9 Common variable immunodeficiency, unspecified; J45.909 Unspecified asthma, uncomplicated; G47.30 Sleep apnea, unspecified; R01.1 Cardiac murmur, unspecified; F17.210 Nicotine dependence, cigarettes, uncomplicated; Z79.891 Long term (current) use of opiate analgesic; Z79.899 Other long term (current) drug therapy; Z88.5 Allergy status to narcotic agent; Z88.8 Allergy status to other drugs, medicaments and biological substances; Z91.040 Latex allergy status; Z98.84 Bariatric surgery status
CPT/HCPCS: J3301

== ENCOUNTER → 2018-04-27 | Outpatient (CLI) | payer OTHER | LOC: M PAIN 09:45 | DX: M79.1 Myalgia (principal); M47.816 Spondylosis without myelopathy or radiculopathy, lumbar region; M47.817 Spondylosis without myelopathy or radiculopathy, lumbosacral region; G43.709 Chronic migraine without aura, not intractable, without status migrainosus; F31.9 Bipolar disorder, unspecified; F41.9 Anxiety disorder, unspecified; F10.21 Alcohol dependence, in remission; G43.909 Migraine, unspecified, not intractable, without status migrainosus; I73.00 Raynaud's syndrome without gangrene; R01.1 Cardiac murmur, unspecified; G47.30 Sleep apnea, unspecified; F17.210 Nicotine dependence, cigarettes, uncomplicated; Z79.899 Other long term (current) drug therapy; Z88.5 Allergy status to narcotic agent; Z88.8 Allergy status to other drugs, medicaments and biological substances; Z91.040 Latex allergy status; Z98.84 Bariatric surgery status | CPT/HCPCS: G0463 ==

== ENCOUNTER → 2018-05-05 | Outpatient (CLI) | payer OTHER | LOC: M PAIN 09:30 | DX: G43.709 Chronic migraine without aura, not intractable, without status migrainosus (principal); M79.1 Myalgia; M54.2 Cervicalgia; F31.9 Bipolar disorder, unspecified; F41.9 Anxiety disorder, unspecified; I73.00 Raynaud's syndrome without gangrene; J45.909 Unspecified asthma, uncomplicated; R01.1 Cardiac murmur, unspecified; G47.30 Sleep apnea, unspecified; F17.210 Nicotine dependence, cigarettes, uncomplicated; Z79.891 Long term (current) use of opiate analgesic; Z79.899 Other long term (current) drug therapy; Z88.5 Allergy status to narcotic agent; Z88.8 Allergy status to other drugs, medicaments and biological substances; Z91.040 Latex allergy status; Z86.59 Personal history of other mental and behavioral disorders; Z98.84 Bariatric surgery status | CPT/HCPCS: G0463 ==

== ENCOUNTER → 2018-05-12 | Outpatient (CLI) | payer OTHER | LOC: M PAIN 14:15 | DX: G89.29 Other chronic pain (principal); M79.1 Myalgia; M54.6 Pain in thoracic spine; F31.9 Bipolar disorder, unspecified; F41.9 Anxiety disorder, unspecified; F10.10 Alcohol abuse, uncomplicated; G43.909 Migraine, unspecified, not intractable, without status migrainosus; I73.00 Raynaud's syndrome without gangrene; R01.1 Cardiac murmur, unspecified; G47.30 Sleep apnea, unspecified; F17.210 Nicotine dependence, cigarettes, uncomplicated; Z79.891 Long term (current) use of opiate analgesic; Z79.899 Other long term (current) drug therapy; Z88.5 Allergy status to narcotic agent; Z88.8 Allergy status to other drugs, medicaments and biological substances; Z91.040 Latex allergy status; Z98.84 Bariatric surgery status | CPT/HCPCS: J3301 ==

== ENCOUNTER → 2018-05-26 | Outpatient (CLI) | payer OTHER | LOC: M PAIN 09:45 | DX: G43.709 Chronic migraine without aura, not intractable, without status migrainosus (principal); M79.1 Myalgia; M54.2 Cervicalgia; F31.9 Bipolar disorder, unspecified; F41.9 Anxiety disorder, unspecified; F10.20 Alcohol dependence, uncomplicated; G43.909 Migraine, unspecified, not intractable, without status migrainosus; I73.00 Raynaud's syndrome without gangrene; J45.909 Unspecified asthma, uncomplicated; R01.1 Cardiac murmur, unspecified; G47.30 Sleep apnea, unspecified; M54.5 Low back pain; J32.9 Chronic sinusitis, unspecified; D83.9 Common variable immunodeficiency, unspecified; F17.210 Nicotine dependence, cigarettes, uncomplicated; Z79.899 Other long term (current) drug therapy; Z90.49 Acquired absence of other specified parts of digestive tract; Z98.84 Bariatric surgery status; Z88.6 Allergy status to analgesic agent; Z88.5 Allergy status to narcotic agent; Z88.8 Allergy status to other drugs, medicaments and biological substances | CPT/HCPCS: G0463 ==

== ENCOUNTER → 2018-06-09 | Outpatient (CLI) | payer OTHER | LOC: M PAIN 13:30 | DX: M79.1 Myalgia (principal); M54.2 Cervicalgia; M25.511 Pain in right shoulder; M25.512 Pain in left shoulder; M54.6 Pain in thoracic spine; F31.9 Bipolar disorder, unspecified; F41.9 Anxiety disorder, unspecified; F10.21 Alcohol dependence, in remission; G43.909 Migraine, unspecified, not intractable, without status migrainosus; I73.00 Raynaud's syndrome without gangrene; D83.9 Common variable immunodeficiency, unspecified; J45.909 Unspecified asthma, uncomplicated; R01.1 Cardiac murmur, unspecified; G47.30 Sleep apnea, unspecified; F17.200 Nicotine dependence, unspecified, uncomplicated; Z79.891 Long term (current) use of opiate analgesic; Z79.899 Other long term (current) drug therapy; Z88.5 Allergy status to narcotic agent; Z88.8 Allergy status to other drugs, medicaments and biological substances; Z91.040 Latex allergy status; Z98.84 Bariatric surgery status | CPT/HCPCS: J3301 ==

== ENCOUNTER → 2018-06-23 | Outpatient (CLI) | payer OTHER ==
[~2018-06-23] MED LIST changes: +BOTULINUM INJ 100 UNITS (J0585) IM; -BUPIVACAINE HCL 0.25% 10 ML VIAL As Ordered; -BUPIVACAINE HCL 0.25% 30 ML VIAL As Ordered; -TRIAMCINOLONE ACETONIDE SUSP 40 MG/ML VIAL (J3301) As Ordered
== END ==
LOC: M PAIN 11:30
DX: G43.709 Chronic migraine without aura, not intractable, without status migrainosus (principal); F31.9 Bipolar disorder, unspecified; F41.9 Anxiety disorder, unspecified; F10.20 Alcohol dependence, uncomplicated; I73.00 Raynaud's syndrome without gangrene; J45.909 Unspecified asthma, uncomplicated; G47.30 Sleep apnea, unspecified; M54.2 Cervicalgia; M54.5 Low back pain; D83.9 Common variable immunodeficiency, unspecified; F17.210 Nicotine dependence, cigarettes, uncomplicated; Z98.84 Bariatric surgery status; Z90.710 Acquired absence of both cervix and uterus; Z88.5 Allergy status to narcotic agent; Z88.8 Allergy status to other drugs, medicaments and biological substances; Z91.040 Latex allergy status
CPT/HCPCS: J0585

== ENCOUNTER → 2018-07-02 | Outpatient (CLI) | payer OTHER | LOC: M ADAMS 15:42 | DX: J98.8 Other specified respiratory disorders (principal) | CPT/HCPCS: 71046 ==

== ENCOUNTER → 2018-07-02 | Outpatient (REF) | payer OTHER ==
[2018-07-02 18:12] LABS: HEMATOCRIT 38.2 % (36.0-47.0); HEMOGLOBIN 12.7 g/dl (12.0-15.5); MEAN CORPUSCULAR HEMOGLOBIN 30.8 pg (27.0-33.0); MEAN CORPUSCULAR HGB CONC 33.2 g/dl (32.0-36.5); MEAN CORPUSCULAR VOLUME 92.5 fl (80.0-96.0); PLATELET COUNT, AUTOMATED 204 10^3/uL (150-450); RED BLOOD COUNT 4.13 10^6/uL (4.00-5.40); RED CELL DISTRIBUTION WIDTH 15.2 % (11.5-14.5); WHITE BLOOD COUNT 7.8 10^3/uL (4.0-10.0)
[2018-07-02 18:37] LABS: ALBUMIN 3.8 GM/DL (3.2-5.2); ALBUMIN/GLOBULIN RATIO 1.15 (1.00-1.93); ALKALINE PHOSPHATASE 113 U/L (45-117); ALT/SGPT 29 U/L (12-78); ANION GAP 9 MEQ/L (8-16); AST/SGOT 26 U/L (7-37); BILIRUBIN,TOTAL 0.3 MG/DL (0.2-1.0); BLOOD UREA NITROGEN 19 MG/DL (7-18); CALCIUM LEVEL 9.4 MG/DL (8.5-10.1); CARBON DIOXIDE LEVEL 26 MEQ/L (21-32); CHLORIDE LEVEL 102 MEQ/L (98-107); CREATININE FOR GFR 1.07 MG/DL (0.55-1.30); GLOMERULAR FILTRATION RATE > 60.0 (>60); GLUCOSE, FASTING 73 MG/DL (70-100); MAGNESIUM LEVEL 2.4 MG/DL (1.8-2.4); POTASSIUM SERUM 4.3 MEQ/L (3.5-5.1); SODIUM LEVEL 137 MEQ/L (136-145); THYROID STIMULATING HORMONE 0.952 uIU/ML (0.358-3.740); TOTAL PROTEIN 7.1 GM/DL (6.4-8.2); VITAMIN B12 LEVEL > 2000.0 PG/ML
[2018-07-02 18:54] LABS: FOLATE 10.5 NG/ML
== END ==
LOC: M SFHCADAM 15:40
DX: R55 Syncope and collapse (principal); I10 Essential (primary) hypertension; Z98.84 Bariatric surgery status; J98.8 Other specified respiratory disorders

== ENCOUNTER → 2018-07-07 | Outpatient (CLI) | payer OTHER | LOC: M PAIN 11:15 | DX: G43.709 Chronic migraine without aura, not intractable, without status migrainosus (principal); M79.10 Myalgia, unspecified site; M54.2 Cervicalgia; F10.21 Alcohol dependence, in remission; I73.00 Raynaud's syndrome without gangrene; D83.9 Common variable immunodeficiency, unspecified; J45.909 Unspecified asthma, uncomplicated; R01.1 Cardiac murmur, unspecified; G47.30 Sleep apnea, unspecified; F17.210 Nicotine dependence, cigarettes, uncomplicated; Z79.891 Long term (current) use of opiate analgesic; Z79.899 Other long term (current) drug therapy; Z88.5 Allergy status to narcotic agent; Z88.8 Allergy status to other drugs, medicaments and biological substances; Z91.040 Latex allergy status; Z87.11 Personal history of peptic ulcer disease; Z98.84 Bariatric surgery status; Z86.69 Personal history of other diseases of the nervous system and sense organs | CPT/HCPCS: G0463 ==

== ENCOUNTER → 2018-07-10 | Outpatient (CLI) | payer OTHER ==
[~2018-07-10] MED LIST changes: -BOTULINUM INJ 100 UNITS (J0585) IM; +ISOVUE-370 76% 100ML VIAL (Q9967) As Ordered; -diazePAM 5 MG TAB As Ordered; -oxyCODONE 5MG TAB As Ordered
== END ==
LOC: M RAD 12:06
DX: R04.2 Hemoptysis (principal)
CPT/HCPCS: Q9967

== ENCOUNTER 2018-07-14 13:22 | Inpatient (IN) | payer OTHER ==
[2018-07-14 14:22] LABS: HEMATOCRIT 39.6 % (36.0-47.0); HEMOGLOBIN 13.3 g/dl (12.0-15.5); MEAN CORPUSCULAR HEMOGLOBIN 31.1 pg (27.0-33.0); MEAN CORPUSCULAR HGB CONC 33.6 g/dl (32.0-36.5); MEAN CORPUSCULAR VOLUME 92.5 fl (80.0-96.0); PLATELET COUNT, AUTOMATED 232 10^3/uL (150-450); RED BLOOD COUNT 4.28 10^6/uL (4.00-5.40); RED CELL DISTRIBUTION WIDTH 14.8 % (11.5-14.5); WHITE BLOOD COUNT 7.3 10^3/uL (4.0-10.0)
[2018-07-14 15:26] LABS: ALBUMIN 3.2 GM/DL (3.2-5.2); ALBUMIN/GLOBULIN RATIO 0.67 (1.00-1.93); ALKALINE PHOSPHATASE 107 U/L (45-117); ALT/SGPT 22 U/L (12-78); ANION GAP 6 MEQ/L (8-16); AST/SGOT 19 U/L (7-37); BILIRUBIN,TOTAL 0.3 MG/DL (0.2-1.0); BLOOD UREA NITROGEN 8 MG/DL (7-18); CALCIUM LEVEL 9.4 MG/DL (8.5-10.1); CARBON DIOXIDE LEVEL 26 MEQ/L (21-32); CHLORIDE LEVEL 106 MEQ/L (98-107); CREATININE FOR GFR 0.96 MG/DL (0.55-1.30); GLOMERULAR FILTRATION RATE > 60.0 (>60); GLUCOSE, FASTING 85 MG/DL (70-100); POTASSIUM SERUM 4.2 MEQ/L (3.5-5.1); SODIUM LEVEL 138 MEQ/L (136-145)
[2018-07-14] MEDS ORDERED: ALBUTEROL 90 MCG/ACT 8GM HFA INHALER INH (16:45)
[2018-07-14] MEDS: CLINDAMYCIN 600 MG in APPROPRIATE DILUENT 1 EA IV (17:00)
[2018-07-14 17:16] LABS: C REACTIVE PROTEIN QUANTITATIV 1.17 MG/DL (0.00-0.30)
[2018-07-14] MEDS: hydrOXYzine 25 MG TAB PO ×2 (18:28→21:47)
[2018-07-14] MEDS: NYSTATIN 500,000 U/5 ML SUSP UDC SSP ×2 (18:28→21:47)
[2018-07-14] MEDS: VANCOMYCIN HCL 1,000 MG, VIAL MATE ADAPTER 1 EACH in D5W 250 ML IV ×2 (18:28→20:18)
[2018-07-14] MEDS: PROMETHAZINE 25 MG TAB PO ×2 (20:00→21:47)
[2018-07-14] MEDS: IPRATROPIUM 0.5MG/ALBUTEROL 2.5MG INH SOL UD 3ML (DUONEB)(J7620) NEB (20:00)
[2018-07-14] MEDS: PANTOPRAZOLE 40MG TAB (PROTONIX) PO (21:47)
[2018-07-14] MEDS: PREGABALIN 75 MG CAP(LYRICA) PO (21:47)
[2018-07-14] MEDS: CYCLOBENZAPRINE 10 MG TAB PO (21:47)
[2018-07-14] MEDS: busPIRone 10 MG TAB PO (21:47)
[2018-07-14] MEDS: ACETAMINOPHEN 500 MG TAB PO (21:48)
[2018-07-14] MEDS: methylPREDNISolone INJ 125 MG/2 ML VIAL (J2930) IV (23:53)
[2018-07-15] MEDS: PROMETHAZINE INJ 25 MG/ML VIAL (J2550) IV (00:27)
[2018-07-15] MEDS: VANCOMYCIN HCL 1,000 MG, VIAL MATE ADAPTER 1 EACH in D5W 250 ML IV ×3 (01:51→18:03)
[2018-07-15] MEDS: MEROPENEM INJ 1 GM in APPROPRIATE DILUENT 1 EA IV ×3 (04:08→20:22)
[2018-07-15] MEDS: methylPREDNISolone INJ 125 MG/2 ML VIAL (J2930) IV ×3 (04:57→20:22)
[2018-07-15 06:01] LABS: BASO % 0.8 % (0.0-1.0); EOS % 0.6 % (0.0-3.0); HEMATOCRIT 38.3 % (36.0-47.0); HEMOGLOBIN 12.4 g/dl (12.0-15.5); IMMATURE GRANULOCYTE % 0.8 % (0-3.0); MEAN CORPUSCULAR HEMOGLOBIN 29.9 pg (27.0-33.0); MEAN CORPUSCULAR HGB CONC 32.4 g/dl (32.0-36.5); MEAN CORPUSCULAR VOLUME 92.3 fl (80.0-96.0); MONO # 0.1 10^3/uL (0.0-0.8); MONO % 1.2 % (0.0-5.0); NEUTROPHILS % 77.6 % (36.0-66.0); PLATELET COUNT, AUTOMATED 204 10^3/uL (150-450); RED BLOOD COUNT 4.15 10^6/uL (4.00-5.40); RED CELL DISTRIBUTION WIDTH 14.8 % (11.5-14.5); WHITE BLOOD COUNT 5.2 10^3/uL (4.0-10.0)
[2018-07-15 06:22] LABS: ANION GAP 6 MEQ/L (8-16); BLOOD UREA NITROGEN 10 MG/DL (7-18); CALCIUM LEVEL 8.8 MG/DL (8.5-10.1); CARBON DIOXIDE LEVEL 26 MEQ/L (21-32); CHLORIDE LEVEL 109 MEQ/L (98-107); CREATININE FOR GFR 0.83 MG/DL (0.55-1.30); GLOMERULAR FILTRATION RATE > 60.0 (>60); GLUCOSE, FASTING 120 MG/DL (70-100); POTASSIUM SERUM 4.7 MEQ/L (3.5-5.1); SODIUM LEVEL 141 MEQ/L (136-145)
[2018-07-15] MEDS: IPRATROPIUM 0.5MG/ALBUTEROL 2.5MG INH SOL UD 3ML (DUONEB)(J7620) NEB ×4 (07:18→21:32)
[2018-07-15] MEDS: NYSTATIN 500,000 U/5 ML SUSP UDC SSP ×4 (07:46→20:23)
[2018-07-15] MEDS: busPIRone 10 MG TAB PO ×2 (07:46→20:22)
[2018-07-15] MEDS: ASCORBIC ACID 500 MG TAB PO (07:47)
[2018-07-15] MEDS: CYCLOBENZAPRINE 10 MG TAB PO ×3 (07:47→20:23)
[2018-07-15] MEDS: NIFEdipine 10 MG CAP PO (07:47)
[2018-07-15] MEDS: PANTOPRAZOLE 40MG TAB (PROTONIX) PO ×2 (07:47→20:23)
[2018-07-15] MEDS: FERROUS SULFATE 325MG TAB PO (07:47)
[2018-07-15] MEDS: LOSARTAN 25 MG TAB PO (07:47)
[2018-07-15] MEDS: PREGABALIN 75 MG CAP(LYRICA) PO ×3 (07:47→20:23)
[2018-07-15] MEDS: hydrOXYzine 25 MG TAB PO ×4 (07:47→20:22)
[2018-07-15] MEDS: PROMETHAZINE 25 MG TAB PO ×4 (07:47→20:23)
[2018-07-15] MEDS: PRENATAL VITAMINS CHEWABLE TABLET PO (07:48)
[2018-07-15] MEDS: ONDANSETRON 4 MG TAB (S0181) PO (13:26)
[2018-07-15] MEDS: SUMAtriptan SUCCINATE 6 MG/0.5 ML VIAL SC (15:57)
[2018-07-15 17:39] LABS: VANCOMYCIN LEVEL TROUGH 13.1 UG/ML (10.0-20.0)
[2018-07-15] MEDS: ACETAMINOPHEN 500 MG TAB PO (20:24)
[2018-07-15] MEDS: ENOXAPARIN 40 MG/0.4 ML SYRINGE (J1650) SC (20:24)
[2018-07-15] MEDS ORDERED: VRAYLAR 3 MG PO (21:00)
[2018-07-16] MEDS: VANCOMYCIN HCL 1,000 MG, VIAL MATE ADAPTER 1 EACH in D5W 250 ML IV (02:16)
[2018-07-16] MEDS: ONDANSETRON 4 MG TAB (S0181) PO (02:26)
[2018-07-16] MEDS: MEROPENEM INJ 1 GM in APPROPRIATE DILUENT 1 EA IV (04:26)
[2018-07-16] MEDS: methylPREDNISolone INJ 125 MG/2 ML VIAL (J2930) IV (05:13)
[2018-07-16 05:55] LABS: BASO % 0.3 % (0.0-1.0); HEMATOCRIT 35.5 % (36.0-47.0); HEMOGLOBIN 11.5 g/dl (12.0-15.5); IMMATURE GRANULOCYTE % 0.3 % (0-3.0); LYMPH # 1.8 10^3/uL (1.5-4.5); LYMPH % 15.3 % (24.0-44.0); MEAN CORPUSCULAR HEMOGLOBIN 29.9 pg (27.0-33.0); MEAN CORPUSCULAR HGB CONC 32.4 g/dl (32.0-36.5); MEAN CORPUSCULAR VOLUME 92.4 fl (80.0-96.0); MONO # 0.4 10^3/uL (0.0-0.8); MONO % 3.1 % (0.0-5.0); NEUTROPHILS # 9.5 10^3/uL (1.8-7.7); PLATELET COUNT, AUTOMATED 187 10^3/uL (150-450); RED BLOOD COUNT 3.84 10^6/uL (4.00-5.40); RED CELL DISTRIBUTION WIDTH 15.2 % (11.5-14.5); WHITE BLOOD COUNT 11.7 10^3/uL (4.0-10.0)
[2018-07-16 06:08] LABS: ANION GAP 3 MEQ/L (8-16); BLOOD UREA NITROGEN 11 MG/DL (7-18); CARBON DIOXIDE LEVEL 28 MEQ/L (21-32); CHLORIDE LEVEL 110 MEQ/L (98-107); CREATININE FOR GFR 0.72 MG/DL (0.55-1.30); GLOMERULAR FILTRATION RATE > 60.0 (>60); GLUCOSE, FASTING 103 MG/DL (70-100); POTASSIUM SERUM 4.9 MEQ/L (3.5-5.1); SODIUM LEVEL 141 MEQ/L (136-145)
[2018-07-16] MEDS: ACETAMINOPHEN 500 MG TAB PO (06:53)
[2018-07-16] MEDS: IPRATROPIUM 0.5MG/ALBUTEROL 2.5MG INH SOL UD 3ML (DUONEB)(J7620) NEB (07:21)
[2018-07-16] MEDS: PROMETHAZINE 25 MG TAB PO (08:13)
[2018-07-16] MEDS: NYSTATIN 500,000 U/5 ML SUSP UDC SSP (08:15)
[2018-07-16] MEDS: PRENATAL VITAMINS CHEWABLE TABLET PO (08:15)
[2018-07-16] MEDS: PREGABALIN 75 MG CAP(LYRICA) PO (08:16)
[2018-07-16] MEDS: PANTOPRAZOLE 40MG TAB (PROTONIX) PO (08:16)
[2018-07-16] MEDS: ASCORBIC ACID 500 MG TAB PO (08:16)
[2018-07-16] MEDS: hydrOXYzine 25 MG TAB PO (08:16)
[2018-07-16] MEDS: busPIRone 10 MG TAB PO (08:16)
[2018-07-16] MEDS: LOSARTAN 25 MG TAB PO (08:16)
[2018-07-16] MEDS: CYCLOBENZAPRINE 10 MG TAB PO (08:16)
[2018-07-16] MEDS: NIFEdipine 10 MG CAP PO (08:17)
[2018-07-16] MEDS: DOCUSATE SODIUM 100 MG CAP PO (09:53)
[2018-07-16] MEDS: INFLUENZA QUADRIVALENT PF VACCINE 0.5ML SYRINGE (90686) IM (09:55)
[2018-07-18 00:07] LABS: BODY FLUID CULTURE Not Indicated (.); LEGIONELLA ANTIGEN URINE Negative (Negative); ORGANISM ID Not indicated. (.); SPECIMEN SOURCE Urine (.); URINE STREP PNEUMONIAE ANTIGEN Negative (Negative)
== END 2018-07-16 11:02 | disposition home or self-care (01) | DRG 137 ==
LOC: M MSPAV 13:22
DX: J15.6 Pneumonia due to other Gram-negative bacteria (principal); K92.0 Hematemesis; D83.9 Common variable immunodeficiency, unspecified; R09.1 Pleurisy; J45.909 Unspecified asthma, uncomplicated; G43.909 Migraine, unspecified, not intractable, without status migrainosus; F31.60 Bipolar disorder, current episode mixed, unspecified; M51.26 Other intervertebral disc displacement, lumbar region; M54.2 Cervicalgia; K27.9 Peptic ulcer, site unspecified, unspecified as acute or chronic, without hemorrhage or perforation; F10.20 Alcohol dependence, uncomplicated; F17.210 Nicotine dependence, cigarettes, uncomplicated; Z79.899 Other long term (current) drug therapy; J32.9 Chronic sinusitis, unspecified; G47.33 Obstructive sleep apnea (adult) (pediatric); F90.9 Attention-deficit hyperactivity disorder, unspecified type; Z88.5 Allergy status to narcotic agent; Z91.040 Latex allergy status; Z88.8 Allergy status to other drugs, medicaments and biological substances; I73.00 Raynaud's syndrome without gangrene

== ENCOUNTER → 2018-08-18 | Outpatient (CLI) | payer OTHER ==
[~2018-08-18] MED LIST changes: +BUPIVACAINE HCL 0.25% 30 ML VIAL As Ordered; -ISOVUE-370 76% 100ML VIAL (Q9967) As Ordered; +ISOVUE-M 300 61% 15ML VIAL (Q9967) As Ordered; +LIDOCAINE 1% SDV INJ 30 ML VIAL As Ordered; +TRIAMCINOLONE ACETONIDE SUSP 40 MG/ML VIAL (J3301) As Ordered; +diazePAM 5 MG TAB As Ordered; +oxyCODONE 5MG TAB As Ordered
== END ==
LOC: M PAIN 11:15
DX: M46.1 Sacroiliitis, not elsewhere classified (principal); K25.9 Gastric ulcer, unspecified as acute or chronic, without hemorrhage or perforation; F31.9 Bipolar disorder, unspecified; F41.9 Anxiety disorder, unspecified; F10.20 Alcohol dependence, uncomplicated; G43.909 Migraine, unspecified, not intractable, without status migrainosus; F17.210 Nicotine dependence, cigarettes, uncomplicated; I73.00 Raynaud's syndrome without gangrene; D83.9 Common variable immunodeficiency, unspecified; J45.909 Unspecified asthma, uncomplicated; G47.30 Sleep apnea, unspecified; Z98.84 Bariatric surgery status; Z90.49 Acquired absence of other specified parts of digestive tract; Z79.899 Other long term (current) drug therapy; Z88.5 Allergy status to narcotic agent; Z91.040 Latex allergy status; Z88.8 Allergy status to other drugs, medicaments and biological substances; Z88.6 Allergy status to analgesic agent
CPT/HCPCS: J3301

== ENCOUNTER → 2018-08-25 | Outpatient (REF) | payer OTHER | LOC: M SFHCADAM 08:45 | DX: J40 Bronchitis, not specified as acute or chronic (principal) ==

== ENCOUNTER → 2018-09-03 | Outpatient (CLI) | payer OTHER ==
[2018-09-03 13:42] LABS: BASO % 0.5 % (0.0-1.0); EOS # 0.1 10^3/uL (0.0-0.50); EOS % 1.7 % (0.0-3.0); HEMATOCRIT 39.1 % (36.0-47.0); HEMOGLOBIN 13.1 g/dl (12.0-15.5); IMMATURE GRANULOCYTE % 0.3 % (0-3.0); LYMPH # 2.8 10^3/uL (1.5-4.5); LYMPH % 36.1 % (24.0-44.0); MEAN CORPUSCULAR HEMOGLOBIN 30.5 pg (27.0-33.0); MEAN CORPUSCULAR HGB CONC 33.5 g/dl (32.0-36.5); MEAN CORPUSCULAR VOLUME 90.9 fl (80.0-96.0); MONO # 0.4 10^3/uL (0.0-0.8); MONO % 4.9 % (0.0-5.0); NEUTROPHILS # 4.3 10^3/uL (1.8-7.7); NEUTROPHILS % 56.5 % (36.0-66.0); PLATELET COUNT, AUTOMATED 208 10^3/uL (150-450); RED CELL DISTRIBUTION WIDTH 15.4 % (11.5-14.5); WHITE BLOOD COUNT 7.7 10^3/uL (4.0-10.0)
[2018-09-03 14:44] LABS: ALBUMIN 3.7 GM/DL (3.2-5.2); ALKALINE PHOSPHATASE 121 U/L (45-117); ALT/SGPT 32 U/L (12-78); ANION GAP 9 MEQ/L (8-16); AST/SGOT 29 U/L (7-37); BILIRUBIN,TOTAL 0.5 MG/DL (0.2-1.0); BLOOD UREA NITROGEN 14 MG/DL (7-18); CARBON DIOXIDE LEVEL 27 MEQ/L (21-32); CHLORIDE LEVEL 103 MEQ/L (98-107); CHOLESTEROL LEVEL 257 MG/DL (<200); CHOLESTEROL RISK RATIO 3.724 (<5); CREATININE FOR GFR 0.86 MG/DL (0.55-1.30); ETHYL ALCOHOL (ETHANOL) < 0.003 % (0.000-0.010); GLOMERULAR FILTRATION RATE > 60.0 (>60); GLUCOSE, FASTING 80 MG/DL (70-100); HDL CHOLESTEROL 69 MG/DL (>40); IRON (FE) 58 UG/DL (50-170); LDL CHOLESTEROL 172 MG/DL (<100); NON-HDL-C 188 MG/DL; POTASSIUM SERUM 3.9 MEQ/L (3.5-5.1); SODIUM LEVEL 139 MEQ/L (136-145); TOTAL PROTEIN 7.4 GM/DL (6.4-8.2); TRIGLYCERIDES LEVEL 80 MG/DL (<150)
== END ==
LOC: M LAB 12:56
DX: F10.10 Alcohol abuse, uncomplicated (principal)
CPT/HCPCS: 80320

== ENCOUNTER → 2018-09-10 | Outpatient (CLI) | payer OTHER | LOC: M SLEEP 19:04 | DX: G47.33 Obstructive sleep apnea (adult) (pediatric) (principal) | CPT/HCPCS: 95811 ==

== ENCOUNTER → 2018-09-18 | Outpatient (CLI) | payer OTHER ==
[2018-09-18 18:05] LABS: BASO % 0.7 % (0.0-1.0); EOS # 0.1 10^3/uL (0.0-0.50); HEMATOCRIT 38.4 % (36.0-47.0); HEMOGLOBIN 12.7 g/dl (12.0-15.5); IMMATURE GRANULOCYTE % 0.2 % (0-3.0); LYMPH # 2.4 10^3/uL (1.5-4.5); LYMPH % 43.3 % (24.0-44.0); MEAN CORPUSCULAR HGB CONC 33.1 g/dl (32.0-36.5); MEAN CORPUSCULAR VOLUME 90.8 fl (80.0-96.0); MONO # 0.4 10^3/uL (0.0-0.8); MONO % 6.4 % (0.0-5.0); NEUTROPHILS # 2.7 10^3/uL (1.8-7.7); NEUTROPHILS % 47.4 % (36.0-66.0); PLATELET COUNT, AUTOMATED 169 10^3/uL (150-450); RED BLOOD COUNT 4.23 10^6/uL (4.00-5.40); RED CELL DISTRIBUTION WIDTH 15.6 % (11.5-14.5); WHITE BLOOD COUNT 5.6 10^3/uL (4.0-10.0)
[2018-09-18 18:06] LABS: ALBUMIN 3.6 GM/DL (3.2-5.2); ALBUMIN/GLOBULIN RATIO 1.09 (1.00-1.93); ALKALINE PHOSPHATASE 131 U/L (45-117); ALT/SGPT 28 U/L (12-78); ANION GAP 6 MEQ/L (8-16); AST/SGOT 31 U/L (7-37); BILIRUBIN,TOTAL 0.2 MG/DL (0.2-1.0); BLOOD UREA NITROGEN 15 MG/DL (7-18); CALCIUM LEVEL 9.2 MG/DL (8.5-10.1); CARBON DIOXIDE LEVEL 32 MEQ/L (21-32); CHLORIDE LEVEL 101 MEQ/L (98-107); GLOMERULAR FILTRATION RATE > 60.0 (>60); GLUCOSE, FASTING 88 MG/DL (70-100); IMMUNOGLOBULIN G 1140 MG/DL (681-1648); POTASSIUM SERUM 3.7 MEQ/L (3.5-5.1); SODIUM LEVEL 139 MEQ/L (136-145); TOTAL PROTEIN 6.9 GM/DL (6.4-8.2)
== END ==
LOC: M SMT 13:47
DX: D83.9 Common variable immunodeficiency, unspecified (principal)
CPT/HCPCS: 80053

== ENCOUNTER → 2018-10-20 | Outpatient (CLI) | payer OTHER ==
[~2018-10-20] MED LIST changes: +/BACL20TA PO; +/LAMO10TA PO; +/METH500TA PO; +/ONDA4TA JT; +/PANT40TA OR; +/PANT40TA PO; +/PREG100CA PO; +/PROC25SU PO; +/QUET25TA PO; +ABIL15TA PO; +ADEK; +ADEK PO; +AMIT10TA PO; +AMIT25TA PO; +AMIT25TA10 PO; +AMIT50TA PO; +ANTA500T PO; +AUGM875T28 PO; +BACL10TA2 OR; +BACL10TA2 PO; +BACL1TAB9 PO; +BACT2CRE TOP; +BENT10CA PO; +BENZ1TA PO; +BIOT5000 PO; +BIOT50004 PO; +BIOTENE PO; +BOTO10VL IM; -BUPIVACAINE HCL 0.25% 30 ML VIAL As Ordered; +BUSP30TA PO; +BUTR10DI TD; +BUTR10DI2 TD; +BUTR1DIS2 TD; +CALC600T7 PO; +CALCIUM PO; +CALCLIQ4 PO; +CALCTAB68 PO; +CAMP333T PO; +CARA1SUS PO; +CARA1TAB2 PO; +CHAN1PAK13 PO; +CHAN1PAK9 PO; +CHLO500TA PO; +CIPR500T19 PO; +CLAR5CHW OR; +CLEO150C PO; +COLA50CA3 PO; +COLACE PO; +CYCL10TA PO; +CYCL10TA3 PO; +CYCL5TAB PO; +CYMB1CAP PO; +DHEA OR; +DHEA PO; +DHEA50CA PO; +DICLOFENAC; +DIFL150T PO; +DOCQ100C PO; +DOXE150C PO; +DOXY-197 PO; +DOXY100C37 PO; +DOXY20TA OR; +DRAM25TA3 PO; +EQL400TA PO; +ESTR0.5T3 PV; +FENT12DI2 TD; +FENT75DI18 TD; +FERR325T OR; +FERR325T3 PO; +FESO4 OR; +FLEX10TA2 PO; +FLORCAP10 PO; +FLUC10TA PO; +Fentanyl Patch TD; +Flexeril PO; +GABA-843 PO; +GABA-845 PO; +GINK120C3 PO; +GINS100C2 PO; +HYDR-3363 PO; +HYDRPOW48 XX; +IBUP1TAB7 PO; +IMIT4KIT SC; +IMIT4KIT2 SC; +IMIT50TA PO; +IRON325T3 PO; -ISOVUE-M 300 61% 15ML VIAL (Q9967) As Ordered; +Imitrex PO; +KETO30VL PO; +KLON1TAB OR; +KLON1TAB PO; +LAMI250T3 PO; +LASI20TA3 PO; +LATU1TAB PO; +LEVO750T13 PO; -LIDOCAINE 1% SDV INJ 30 ML VIAL As Ordered; +LORA10TA2 PO; +LOSA100T50 PO; +LOSA25TA14 PO; +LUNE3TAB36 PO; +LYRI150C PO; +LYRI225C PO; +LYRI75CA PO; +MAGN250T PO; +MAPA325T2 PO; +MEGE40TA18 PO; +MIRA0.5T PO; +MULT1TAB10 PO; +MULTCAP11 PO; +MULTTAB24 PO; +MULTTAB4 PO; +NARA2.5T PO; +NICO21DI24 TD; +NIFE10CA2 PO; +NIFE20CA PO; +NORC5TAB PO; +NORCO OR; +NORT50CA PO; +NYST50SS SSP; +OMEP20CA3 PO; +OMEP40CA2 PO; +OXYC-517 PO; +OXYC1SOL3 PO; +OXYC1TAB23 PO; +OXYC5CAP2 PO; +OXYC5TAB2 PO; +OYST500T50 PO; +PERC5TAB12 PO; +PERCTAB PO; +PRED10TA2 PO; +PREG50CA PO; +PREM0.45 PO; +PRENTAB20 PO; +PROB1TAB PO; +PROBCAP4 PO; +PROC10CA PO; +PROC30TA PO; +PROC90TA PO; +PROM-190 PO; +PROM25TA PO; +PROM25TA12 PO; +PROT1TAB2 PO; +PROTPAK PO; +PROZ20CA11 PO; +PROZ40CA OR; +PYRI1TAB5 PO; +RITA10TA PO; +RITA20CA PO; +ROBA750T4 PO; +SAPH1SUB10 SL; +SAPH1SUB9 SL; +SENN8.6C PO; +SERO200T PO; +SERO50TA PO; +SOMA350T OR; +STRA80CA PO; +SUCR1TA PO; +TIZA4CAP PO; +TIZA4TAB3 PO; -TRIAMCINOLONE ACETONIDE SUSP 40 MG/ML VIAL (J3301) As Ordered; +TRIL1TAB PO; +TRIL300S PO; +TYLE325T5 PO; +TYLE500T78 PO; +Tylenol PO; +VALE250C2 PO; +VALI10TA PO; +VALI5TAB PO; +VARE1TA PO; +VENTAER INH; +VIBR100C OR; +VICO5TAB; +VIST25CA PO; +VIST50CA PO; +VIT B12 PO; +VITA100037 PO; +VITA100067 PO; +VITA500T PO; +VITATAB11 PO; +VRAY3CAP PO; +VYVA50CA PO; +VYVA70CA3 PO; +XANA0.5T OR; +ZETONNA; +ZOFR4SOL PO; +ZOFR4TAB16 PO; +ZOFRAN PO; +ZOLO100T PO; +ZYPR10TA PO; +ZYRT10CA PO; +[UNRECOGNIZED DRUG - CODE]; +[UNRECOGNIZED DRUG - CODE]; +[UNRECOGNIZED DRUG - CODE] IV; +[UNRECOGNIZED DRUG - CODE] OR; +[UNRECOGNIZED DRUG - CODE] PO; +[UNRECOGNIZED DRUG - CODE] PO; +[UNRECOGNIZED DRUG - CODE] PO; +[UNRECOGNIZED DRUG - CODE] PO; +[UNRECOGNIZED DRUG - CODE] PO; +[UNRECOGNIZED DRUG - CODE] PR; +[UNRECOGNIZED DRUG - CODE] SC; +[UNRECOGNIZED DRUG - CODE] TOP; +[UNRECOGNIZED DRUG - OTHER] PO; +[UNRECOGNIZED DRUG - OTHER] PO; +[UNRECOGNIZED DRUG - OTHER] PO; +[UNRECOGNIZED DRUG - OTHER] PO; +anexsia PO; +atarax PO; +calci; -diazePAM 5 MG TAB As Ordered; -oxyCODONE 5MG TAB As Ordered; +phenergan PO; +voltaren gel; +voltaren gel 1% TOP
--- NOTE | 2018-10-21 00:19 | ECWPNPC ---
PATIENT NAME: ADELA ALMONTE : 1980 GENDER: FEMALE VISIT DATE: 10/20/2018 DISCHARGE DATE: 10/20/18 1341 VISIT LOCKED DATE TIME: PHYSICIAN: TON VO RESOURCE: TON VO REASON FOR APPOINTMENT 1. POST SIJ PT OF SW HISTORY OF PRESENT ILLNESS HISTORY OF PRESENT ILLNESS: HERE FOR F/U OF CHRONIC LOW BACK PAIN AND HEADACHE.HAD BILAT. SIJ 08-18-18.REPORTING IT WAS HELPFUL AND CONTINUES TO BE SOMEWHAT HELPFUL ON LEFT SIDE TODAY.FELL IN MID SEPTEMBER AND RIGHT SIDE BEGAN TO ACT UP.REPORTING MIGRAINE HEADACHES HAVE STARTED TO INCREASE.HAS RESPONDED WELL TO BOTOX.REPORTS BUTRANS PATCH IS INEFFECTIVE AND IS CAUSING A RASH.DUE TO PATIENTS PMH I WILL DISCUSS MEDICATION MANAGEMENT WITH HIM.RATING PAIN VAS 7/10. PAIN THE PATIENT DESCRIBES THE PAIN... FALL RISK SCREENING: SCREENING :NO FALLS IN THE PAST YEAR CURRENT MEDICATIONS TAKING CARAFATE 1 GM TABLET 1 TABLET AT BEDTIME ON AN EMPTY STOMACH BEFORE MEALS ORALLY FOUR TIMES DAILY, NOTES: LATELY TAKING IMITREX 4 MG/0.5ML SOLUTION 1 INJECTION NEEDED AT THE ONSET OF A MIGRAINE SUBCUTANEOUS REPEAT TIMES ONE IF NOT EFFECTIVE (DR JC), NOTES: 5 DAYS AGO TAKING VRAYLAR 3 MG CAPSULE 1 CAPSULE ORALLY ONCE A DAY TAKING CUVITRU 4 GM/20ML SOLUTION 14 GRAMS SUBCUTANEOUS WEEKLY TAKING VYVANSE 70 MG CAPSULE ORALLY ONCE A DAY TAKING NARATRIPTAN HCL 2.5 MG TABLET 1 TABLET NEEDED ONE TIME ORALLY ONCE A DAY, NOTES: YESTERDAY TAKING HYDROXYZINE HCL 25 MG TABLET 1 TAB ORALLY FOUR TIMES DAILY TAKING BUSPIRONE HCL 30 MG TABLET 1 TABLET ORALLY TWICE A DAY TAKING NIFEDIPINE 20 MG CAPSULE 1 CAPSULE ORALLY DAILY TAKING LOSARTAN POTASSIUM 25 MG TABLET 1 TABLET ORALLY ONCE A DAY TAKING VITAMIN B-12 1000 MCG TABLET 1 TABLET ORALLY ONCE A DAY TAKING VITAMIN D 2000 UNIT TABLET 1 TABLET ORALLY ONCE A DAY TAKING PHENERGAN 25 MG TABLET 1 TABLET ORALLY EVERY 6 HRS PRN NAUSEA TAKING PROTONIX 40 MG TABLET DELAYED RELEASE 1 TABLET BID ORALLY 30 DAY(S) ORALLY BID TAKING LYRICA 150 MG CAPSULE 1 CAPSULE ORALLY THREE TIMES A DAY MDD=3 TAKING CYCLOBENZAPRINE HCL 10 MG TABLET 1 TABLET NEEDED ORALLY THREE TIMES A DAY TAKING BUTRANS 15 MCG/HR PATCH WEEKLY 1 PATCH TO SKIN TRANSDERMAL WEEKLY TAKING LASIX 20 MG TABLET 1 TABLET ORALLY ONCE A DAY, NOTES: 08-18-18 0800 TAKING FERROUS SULFATE 325 (65 FE) MG TABLET 1 TABLET ORALLY EVERY OTHER DAY TAKING CHANTIX 1 MG 1 TAB ORAL BID TAKING ACETAMINOPHEN 500 MG CAPSULE 1 CAPSULES NEEDED ORALLY EVERY 6 HRS PRN TAKING FLUTICASONE PROPIONATE 50 MCG/ACT SUSPENSION 1 SPRAY IN EACH NOSTRIL NASALLY ONCE A DAY TAKING CLARITIN 10 MG TABLET 1 TABLET ORALLY ONCE A DAY TAKING IBUPROFEN 800 MG TABLET 1 TABLET WITH FOOD OR MILK NEEDED ORALLY THREE TIMES A DAY NEEDED FOR SEVERE HEADACHES TAKING MUPIROCIN CALCIUM 2 % CREAM 1 APPLICATION TO AFFECTED AREA EXTERNALLY NOSE GROIN AXILLA HEAD BID 1 WEEK/PRN TAKING ALBUTEROL SULFATE (2.5 MG/3ML) 0.083% NEBULIZATION SOLUTION 1 VIAL INHALATION EVERY 6 HRS PRN, NOTES: NOT LATELY TAKING VENTOLIN HFA 108 (90 BASE) MCG/ACT AEROSOL SOLUTION 2 PUFFS NEEDED INHALATION EVERY 4 HRS PRN, NOTES: ONLY NEEDED NOT LATELY TAKING TRILEPTAL 300 MG TABLET 1 TABLET ORALLY TWICE A DAY NOT-TAKING NYSTATIN [id number] UNIT/ML SUSPENSION 4 ML MOUTH/THROAT FOUR TIMES A DAY NOT-TAKING LEVAQUIN 750 MG TABLET 1 TABLET ORALLY ONCE A DAY NOT-TAKING PREDNISONE 20 MG TABLET 2 TABLETS ORALLY ONCE A DAY UNKNOWN BOTOX 100 UNIT SOLUTION RECONSTITUTED INJECTION MONTHLY MEDICATION LIST REVIEWED AND RECONCILED WITH THE PATIENT PAST MEDICAL HISTORY MENOPAUSE CHRONIC NECK/MID/LOW BACK PAIN PEPTIC ULCER DISEASE, S/P GASTRIC BYPASS - ON PROTONIX AND CARAFATE BY DR. MILLER BIPOLAR, ANXIETY, DEPRESSION - FOLLWS WITH DR. OTERO ALCOHOLISM MIGRAINE HEADACHES TOBACCO USE ADD CHRONIC RHINITIS/SINUSITIS RAYNAUD'S SYNDROME COMMON VARIABLE AUTOIMMUNE DEFICIENCY DISEASE ASTHMA HEART MURMUR - ECHO 10/2017 BORDERLINE LVH, MILD LAE, SUBTLE AV SCLEROSIS, AORTIC SCLEROSIS, MILD AR, MILD MR SLEEP APNEA WITH BIPAP S/P GASTRIC BYPASS FAINTING SPELLS ALLERGIES MORPHINE: HIVES: ALLERGY LATEX: HIVES: ALLERGY DILAUDID: HIVES: ALLERGY REGLAN: HIVES: ALLERGY LAMICTAL: HIVES: ALLERGY DEPAKOTE: CONFUSION: CONTRAINDICATION RISPERDAL: SUICIDAL IDEATION: ALLERGY KETOROLAC TROMETHAMINE: ANAPHYLAXIS: ALLERGY MUSCLE RELAXERS: ALTERED MENTAL STATUS: SIDE EFFECTS GASTROGRAFIN: HIVES: ALLERGY SURGICAL HISTORY LUMBAR LAMINECTOMY SYRACUSE 05/09 BACK SURGERY 1997 LAPAROTOMY X 4...CARTHAGE....DR. CRISTOBAL CHOLECYSTECTOMY 07/13 ELIA W/ AGUDELO, APPENDECTOMY 12/13 GASTRIC BYPASS (DR. CARTAGENA, [facility]) 01/2012 LAPAROSCOPY AND REMOVAL OF ADHESIONS (DR. BARRERA) 12/2012 CHEST TUBE ENDOSCOPY/COLONOSCOPY BLOOD TRANSFUSION BLADDER REPAIR 10/2016 LAPROSCOPC SURGERY FOR ENDOMETRIOSIS / LYSIS OF ADHESIONS AND SCAR TISSUE (BOWEL NICKED IN OR). 12/19/17 EGD - ESOPHAGEAL PLAQUE - BIOPSY RESULTS NOT SENT TO US (DR. MILLER) 05/2018 FAMILY HISTORY FATHER: ALIVE, DIAGNOSED WITH STROKE, CANCER MOTHER: ALIVE FATHER SKIN CANCERSISTER WITH HOSHIMOTO'S. SOCIAL HISTORY GENERAL: TOBACCO USE ARE YOU A:CURRENT SMOKER ARE YOU INTERESTED IN QUITTING?READY TO QUIT ON DAY 10 OF CHANTIX CURRENTLY, DECREASED AMOUNT A CIGARETTES. COUNSELED THE PATIENT ON TOBACCO USE, CESSATION [id number]/13/2018 HOW MANY CIGARETTES A DAY DO YOU SMOKE?6-10 HOW SOON AFTER YOU WAKE UP DO YOU SMOKE YOUR FIRST CIGARETTE?AFTER 60 MIN HOW OFTEN DO YOU SMOKE CIGARETTES?EVERY DAY PATIENT COUNSELED ON THE DANGERS OF TOBACCO USE AND URGED TO QUIT:07/07/2018 LUNG CANCER SCREENING SMOKING STATUS:CURRENT SMOKER BMI CARE GOAL FOLLOW-UP ABOVE NORMAL BMI FOLLOW-UPDIETARY MANAGEMENT EDUCATION, GUIDANCE, AND COUNSELING, DIETARY NEEDS EDUCATION, EXERCISE PROMOTION: STRENGTH TRAINING ALCOHOL SCREENING DID YOU HAVE A DRINK CONTAINING ALCOHOL IN THE PAST YEAR?NO POINTS0 INTERPRETATIONNEGATIVE RECREATIONAL DRUG USE DRUG USE?NO CAFFEINE CAFFEINE USE?YES 2-3 CUPS COFFEE & ICED TEA THROUGH THE DAY. 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 DIET: REGULAR. EXERCISE: NO REGULAR EXERCISE. MARITAL STATUS: SINGLE. PAIN CLINIC PFS, CLERGY, PUBLIC HEALTH REFERRALS WAS THE PROVIDER NOTIFIED OF ANY PERTINENT INFO?YES HAS THE PATIENT BEEN EDUCATED REGARDING HIS/HER PLAN OF CARE?YES PLEASE DOCUMENT ANY ADDTIONAL DETAILS. TPI HAS THE PATIENT BEEN EDUCATED REGARDING PAIN, THE RISK FOR PAIN, THE IMPORTANCE OF EFFECTIVE PAIN MANAGEMENT, AND THE PAIN ASSESSMENT PROCESS?YES ADVANCE DIRECTIVE ADVANCE DIRECTIVE DISCUSSED WITH PATIENT:YES PT. DECLINES INFORMATION REVIEWED WITH PT 06/23/18 1154 BVREVIEWED WITH PATIENT 07/07/18 1154 JS. HOSPITALIZATION/MAJOR DIAGNOSTIC PROCEDURE SURGERY RELATED [facility] ([facility]) 05/2012 ADMITTED TO [facility] 12/2015 [facility] 10/2015 [facility] STAY DUE TO NICKED BOWEL 12/19/2017 PNEUMONIA 07/2018 REVIEW OF SYSTEMS REVIEWED BY: PROVIDER: TON CALL . CONSTITUTIONAL: ANY CHANGE IN YOUR MEDICAL CONDITION? NO . CHILLS NO . FEVER NO . INFECTION: DO YOU HAVE NEW INFECTIONS? NO . DO YOU HAVE HISTORY OF MRSA? NO . MUSCULOSKELETAL: ANY NEW PATTERNS OF PAIN OR NUMBNESS? NEW NUMBNESS RIGHT CALF AND PAIN RETURNED BACK ALSO PAIN IN RIGHT ARM FROM FALL IN SEPTEMBER . GASTROENTEROLOGY: ANY NEW CHANGE IN BOWEL CONTROL? INCOTTINENT OF STOOL "ON OCCASSION" . GENITOURINARY: ANY NEW CHANGE IN BLADDER CONTROL? NO . IS THERE A CHANCE YOU COULD BE ? NO . HEMATOLOGY/LYMPH: DO YOU TAKE ANY BLOOD THINNERS? (FOR EXAMPLE- COUMADIN, PLAVIX, AGGRENOX, PLATEL, PRADAXA, OR XARELTO) NO . WHEN WAS YOUR LAST DOSE? DATE: TIME: . NEUROLOGY: HAVE YOU FALLEN IN THE PAST 6 MONTHS? HAD A FALL IN SEPTEMBER OUT ON ICE FELL ON BOTTOM PLACED RIGHT ARM OUT NO URGENT CARE . ANY NEW EXTREMITY NUMBNESS OR WEAKNESS? NO . CARDIOLOGY: DO YOU HAVE A PACEMAKER OR DEFIBRILLATOR? NO . RESPIRATORY: HAVE YOU BEEN SICK IN THE PAST WEEK? NO . FEVER NO . FLU LIKE SYMPTOMS? NO . COUGH NO . INTEGUMENTARY: DO YOU HAVE ANY RASHES OR OPEN SORES? FINGER TIPS RAW . ALLERGIC/IMMUNO: ARE YOU ALLERGIC TO SHELLFISH OR IV DYE? NO . ANY NEW ALLERGIES? NO . PSYCHIATRIC: DO YOU HAVE THOUGHTS OF HURTING YOURSELF OR SOMEONE ELSE? NO . ARE YOU ABUSED, NEGLECTED, OR IN AN UNSAFE ENVIRONMENT? NO . ENDOCRINOLOGY: ARE YOU DIABETIC? NO . OTHER: DO YOU NEED ANY PRESCRIPTIONS? YES, NEEDS BUTRANS WRITTEN BUTRANS IS RACTION ON SKIN FROM GENERIC, FLEXERIL NARATRYPTAN IMITREX REFILLED . IF YES, PLEASE LIST: ____ . ANY NEW PROBLEMS WITH YOUR MEDICATIONS? NO . WHEN DID YOU LAST EAT? ____ . WHEN DID YOU LAST DRINK? ____ . WHAT DID YOU LAST DRINK? ____ . NAME OF PERSON DRIVING YOU HOME? ____ . DO YOU HAVE ANY OTHER QUESTIONS OR CONCERNS NO . VITAL SIGNS WT 210 LBS, HT 67", BMI 32.89 INDEX, BP 138/87 MM HG, HR 95 /MIN, RR 18 /MIN, TEMP 97.0 F, OXYGEN SAT % 98%, NA INITIALS SC 12:44, REVIEWED BY: KG. EXAMINATION GENERAL EXAMINATION: GENERAL APPEARANCE:ALERT,NO DISTRESS . PSYCHAFFECT NORMAL . LUNGS:LUNG SOUNDS ARE CLEAR . HEART:HEART RATE REGULAR . MUSCULOSKELETAL:MST 5/5 BILAT. LOWER EXTREMITIES . LUMBAR SACRAL SPINE TENDERNESS RIGHT SIJ . DIAGNOSTIC TESTS REVIEWEDCT L/S [id number] . ASSESSMENTS CHRONIC MIGRAINE W/O AURA W/O STATUS MIGRAINOSUS, NOT INTRACTABLE - G43.709 (PRIMARY) SACROILIITIS, NOT ELSEWHERE CLASSIFIED - M46.1 TREATMENT CHRONIC MIGRAINE W/O AURA W/O STATUS MIGRAINOSUS, NOT INTRACTABLE CONTINUE LYRICA CAPSULE, 150 MG, 1 CAPSULE, ORALLY, THREE TIMES A DAY MDD=3 CONTINUE CYCLOBENZAPRINE HCL TABLET, 10 MG, 1 TABLET NEEDED, ORALLY, THREE TIMES A DAY STOP BUTRANS PATCH WEEKLY, 15 MCG/HR, 1 PATCH TO SKIN, TRANSDERMAL, WEEKLY NOTES: RIGHT SIJ/BOTOX, ISTOP REGISTRY REVIEWED AND DEMONSTRATES COMPLLIANCE. (REF #[id number] ) BRINGS IN MEDICATIONS WHICH IS APPROPRIATE FOR WHAT WAS DISPENSED. RECENT URINE TOXICOLOGY REVIEWED. NO UNAUTHORIZED MEDICATIONS. NO ILLICIT SUBSTANCES AND PRESCRIBED MEDICATIONS WERE PRESENT. URINE TOX TODAY, RISKS AND BENEFITS OF NARCOTIC/OPIOD MEDICATIONS WERE REVIEWED WITH PATIENT - THIS INCLUDES BUT IS NOT LIMITED TO RISK OF DEPENDANCE/DEVELOPMENT OF ADDICTION, MOOD DISTURBANCE AND DEPRESSION, OSTEOPOROSIS, HORMONAL AND LABIDAL CHANGES, RESPIRATORY DEPRESSION AND . PATIENT IS ADVISED NOT TO DRIVE OR DRINK ALCOHOL WHILE ON THESE MEDICATIONS. PROCEDURE CODES FA211 ESTABILISHED PATIENT [facility] CHARGE DISPOSITION & COMMUNICATION FOLLOW UP POST (REASON: RIGHT SIJ/BOTOX) ELECTRONICALLY SIGNED BY JAKUB BAJWA ON 10/20/2018 AT 02:13 PM EST DISCLAIMER : THIS IS A VISIT SUMMARY EXTRACTED FROM THE [employer] CHART. IT IS NOT A COPY OF THE [employer] PROGRESS NOTE. GELACIO
== END ==
LOC: M PAIN 13:00
PROVIDERS: ATTEND Nurse Practitioner Family
DX: G43.709 Chronic migraine without aura, not intractable, without status migrainosus (principal); M46.1 Sacroiliitis, not elsewhere classified; F31.9 Bipolar disorder, unspecified; F41.9 Anxiety disorder, unspecified; F10.10 Alcohol abuse, uncomplicated; I73.00 Raynaud's syndrome without gangrene; D83.9 Common variable immunodeficiency, unspecified; J45.909 Unspecified asthma, uncomplicated; G47.30 Sleep apnea, unspecified; F17.210 Nicotine dependence, cigarettes, uncomplicated; Z79.891 Long term (current) use of opiate analgesic; Z79.899 Other long term (current) drug therapy; Z88.5 Allergy status to narcotic agent; Z88.8 Allergy status to other drugs, medicaments and biological substances; Z91.040 Latex allergy status; Z86.69 Personal history of other diseases of the nervous system and sense organs; Z87.11 Personal history of peptic ulcer disease; Z98.84 Bariatric surgery status

== ENCOUNTER → 2018-11-02 | Outpatient (CLI) | payer OTHER ==
[~2018-11-02] MED LIST changes: +BOTULINUM INJ 100 UNITS (J0585) IM ONE; +diazePAM 5 MG TAB As Ordered ONE; +oxyCODONE 5MG TAB As Ordered ONE
--- NOTE | 2018-11-15 23:58 | ECWPNPC ---
PATIENT NAME: ADELA ALMONTE : 1980 GENDER: FEMALE VISIT DATE: 11/02/2018 DISCHARGE DATE: 11/02/18 1409 VISIT LOCKED DATE TIME: PHYSICIAN: HARRISON ZEPEDA MD RESOURCE: HARRISON ZEPEDA MD REASON FOR APPOINTMENT 1. BOTOX HISTORY OF PRESENT ILLNESS HISTORY OF PRESENT ILLNESS: PAIN THE PATIENT DESCRIBES THE PAIN... FALL RISK SCREENING: SCREENING :NO FALLS IN THE PAST YEAR CURRENT MEDICATIONS TAKING CARAFATE 1 GM TABLET 1 TABLET AT BEDTIME ON AN EMPTY STOMACH BEFORE MEALS ORALLY FOUR TIMES DAILY, NOTES: 11-01-182099 TAKING IMITREX 4 MG/0.5ML SOLUTION 1 INJECTION NEEDED AT THE ONSET OF A MIGRAINE SUBCUTANEOUS REPEAT TIMES ONE IF NOT EFFECTIVE (DR JC), NOTES: 1 WEEK AGO TAKING VRAYLAR 3 MG CAPSULE 1 CAPSULE ORALLY ONCE A DAY, NOTES: 11-01-182099 TAKING CUVITRU 4 GM/20ML SOLUTION 14 GRAMS SUBCUTANEOUS WEEKLY, NOTES: FRIDAY TAKING VYVANSE 70 MG CAPSULE ORALLY ONCE A DAY, NOTES: 11-02-18799 TAKING NARATRIPTAN HCL 2.5 MG TABLET 1 TABLET NEEDED ONE TIME ORALLY ONCE A DAY, NOTES: YESTERDAY TAKING HYDROXYZINE HCL 25 MG TABLET 1 TAB ORALLY FOUR TIMES DAILY, NOTES: 11-01-182099 TAKING BUSPIRONE HCL 30 MG TABLET 1 TABLET ORALLY TWICE A DAY, NOTES: 11-02-18699- TAKING NIFEDIPINE 20 MG CAPSULE 1 CAPSULE ORALLY DAILY, NOTES: 11-02-18799 TAKING LOSARTAN POTASSIUM 25 MG TABLET 1 TABLET ORALLY ONCE A DAY, NOTES: 799 TAKING VITAMIN B-12 1000 MCG TABLET 1 TABLET ORALLY ONCE A DAY, NOTES: 11-01-18899 TAKING VITAMIN D 2000 UNIT TABLET 1 TABLET ORALLY ONCE A DAY, NOTES: 11-01-18799 TAKING PHENERGAN 25 MG TABLET 1 TABLET ORALLY EVERY 6 HRS PRN NAUSEA TAKING PROTONIX 40 MG TABLET DELAYED RELEASE 1 TABLET BID ORALLY 30 DAY(S) ORALLY BID, NOTES: 11-02-18799 TAKING LASIX 20 MG TABLET 1 TABLET ORALLY ONCE A DAY, NOTES: 11-02-18 08 TAKING FERROUS SULFATE 325 (65 FE) MG TABLET 1 TABLET ORALLY EVERY OTHER DAY, NOTES: FRIDAY TAKING CHANTIX 1 MG 1 TAB ORAL BID, NOTES: 11-02-18799 TAKING ACETAMINOPHEN 500 MG CAPSULE 1 CAPSULES NEEDED ORALLY EVERY 6 HRS PRN, NOTES: 11-02-18799 TAKING FLUTICASONE PROPIONATE 50 MCG/ACT SUSPENSION 1 SPRAY IN EACH NOSTRIL NASALLY ONCE A DAY, NOTES: 11-02-18799 TAKING CLARITIN 10 MG TABLET 1 TABLET ORALLY ONCE A DAY, NOTES: 11-02-18799 TAKING IBUPROFEN 800 MG TABLET 1 TABLET WITH FOOD OR MILK NEEDED ORALLY THREE TIMES A DAY NEEDED FOR SEVERE HEADACHES, NOTES: 11-02-18799 TAKING MUPIROCIN CALCIUM 2 % CREAM 1 APPLICATION TO AFFECTED AREA EXTERNALLY NOSE GROIN AXILLA HEAD BID 1 WEEK/PRN, NOTES: FRIDAY TAKING ALBUTEROL SULFATE (2.5 MG/3ML) 0.083% NEBULIZATION SOLUTION 1 VIAL INHALATION EVERY 6 HRS PRN, NOTES: NOT LATELY TAKING VENTOLIN HFA 108 (90 BASE) MCG/ACT AEROSOL SOLUTION 2 PUFFS NEEDED INHALATION EVERY 4 HRS PRN, NOTES: ONLY NEEDED NOT LATELY TAKING TRILEPTAL 300 MG TABLET 1 TABLET ORALLY TWICE A DAY, NOTES: 11-02-18799 TAKING CYCLOBENZAPRINE HCL 10 MG TABLET 1 TABLET NEEDED ORALLY THREE TIMES A DAY, NOTES: 11-02-18 TAKING LYRICA 150 MG CAPSULE 1 CAPSULE ORALLY THREE TIMES A DAY MDD=3, NOTES: 11-02-18699 NOT-TAKING NYSTATIN [id number] UNIT/ML SUSPENSION 4 ML MOUTH/THROAT FOUR TIMES A DAY UNKNOWN LEVAQUIN 750 MG TABLET 1 TABLET ORALLY ONCE A DAY UNKNOWN PREDNISONE 20 MG TABLET 2 TABLETS ORALLY ONCE A DAY UNKNOWN BOTOX 100 UNIT SOLUTION RECONSTITUTED INJECTION MONTHLY MEDICATION LIST REVIEWED AND RECONCILED WITH THE PATIENT PAST MEDICAL HISTORY MENOPAUSE CHRONIC NECK/MID/LOW BACK PAIN PEPTIC ULCER DISEASE, S/P GASTRIC BYPASS - ON PROTONIX AND CARAFATE BY DR. MILLER BIPOLAR, ANXIETY, DEPRESSION - FOLLWS WITH DR. OTERO ALCOHOLISM MIGRAINE HEADACHES TOBACCO USE ADD CHRONIC RHINITIS/SINUSITIS RAYNAUD'S SYNDROME COMMON VARIABLE AUTOIMMUNE DEFICIENCY DISEASE ASTHMA HEART MURMUR - ECHO 10/2017 BORDERLINE LVH, MILD LAE, SUBTLE AV SCLEROSIS, AORTIC SCLEROSIS, MILD AR, MILD MR SLEEP APNEA WITH BIPAP S/P GASTRIC BYPASS FAINTING SPELLS ALLERGIES MORPHINE: HIVES: ALLERGY LATEX: HIVES: ALLERGY DILAUDID: HIVES: ALLERGY REGLAN: HIVES: ALLERGY LAMICTAL: HIVES: ALLERGY DEPAKOTE: CONFUSION: CONTRAINDICATION RISPERDAL: SUICIDAL IDEATION: ALLERGY KETOROLAC TROMETHAMINE: ANAPHYLAXIS: ALLERGY MUSCLE RELAXERS: ALTERED MENTAL STATUS: SIDE EFFECTS GASTROGRAFIN: HIVES: ALLERGY SURGICAL HISTORY LUMBAR LAMINECTOMY [place] 02/11 BACK SURGERY 1997 LAPAROTOMY X 4...CARTHAGE....DR. CRISTOBAL CHOLECYSTECTOMY 07/13 ELIA W/ AGUDELO, APPENDECTOMY 12/13 GASTRIC BYPASS (DR. CARTAGENA, [facility]) 01/2012 LAPAROSCOPY AND REMOVAL OF ADHESIONS (DR. BARRERA) 12/2012 CHEST TUBE ENDOSCOPY/COLONOSCOPY BLOOD TRANSFUSION BLADDER REPAIR 10/2016 LAPROSCOPC SURGERY FOR ENDOMETRIOSIS / LYSIS OF ADHESIONS AND SCAR TISSUE (BOWEL NICKED IN OR). 12/19/17 EGD - ESOPHAGEAL PLAQUE - BIOPSY RESULTS NOT SENT TO US (DR. MILLER) 05/2018 HOSPITALIZATION/MAJOR DIAGNOSTIC PROCEDURE SURGERY RELATED [facility] ([facility]) 05/2012 ADMITTED TO [facility] 12/2015 [facility] 10/2015 [facility] 2 DAY HOSPITAL STAY DUE TO NICKED BOWEL 12/19/2017 PNEUMONIA 07/2018 REVIEW OF SYSTEMS REVIEWED BY: PROVIDER: . CONSTITUTIONAL: ANY CHANGE IN YOUR MEDICAL CONDITION? NO . CHILLS NO . FEVER NO . INFECTION: DO YOU HAVE NEW INFECTIONS? NO . DO YOU HAVE HISTORY OF MRSA? NO . MUSCULOSKELETAL: ANY NEW PATTERNS OF PAIN OR NUMBNESS? NO . GASTROENTEROLOGY: ANY NEW CHANGE IN BOWEL CONTROL? NO . GENITOURINARY: ANY NEW CHANGE IN BLADDER CONTROL? NO . IS THERE A CHANCE YOU COULD BE ? NO . HEMATOLOGY/LYMPH: DO YOU TAKE ANY BLOOD THINNERS? (FOR EXAMPLE- COUMADIN, PLAVIX, AGGRENOX, PLATEL, PRADAXA, OR XARELTO) NO . WHEN WAS YOUR LAST DOSE? DATE: TIME: . NEUROLOGY: HAVE YOU FALLEN IN THE PAST 12 MONTHS? MID SEPTEMBER HAD A FALL AND FALL ON RIGHT SIDE "VERY BAD FALL" DID NOT GO TO URGENT CARE . ANY NEW EXTREMITY NUMBNESS OR WEAKNESS? NO . CARDIOLOGY: DO YOU HAVE A PACEMAKER OR DEFIBRILLATOR? NO . RESPIRATORY: HAVE YOU BEEN SICK IN THE PAST WEEK? NO . FEVER NO . FLU LIKE SYMPTOMS? NO . COUGH NO . INTEGUMENTARY: DO YOU HAVE ANY RASHES OR OPEN SORES? NO . ALLERGIC/IMMUNO: ARE YOU ALLERGIC TO IV DYE? NO . ANY NEW ALLERGIES? NO . PSYCHIATRIC: DO YOU HAVE THOUGHTS OF HURTING YOURSELF OR SOMEONE ELSE? NO . ARE YOU ABUSED, NEGLECTED, OR IN AN UNSAFE ENVIRONMENT? NO . ENDOCRINOLOGY: ARE YOU DIABETIC? NO . OTHER: DO YOU NEED ANY PRESCRIPTIONS? Jesusita PAULA RN SPOKE WITH PT AND DR GUTIERREZ ABOUT NEED FOR PAIN MEDICATION SHE IS NO LOGER TAKING THE BUTRAND . IF YES, PLEASE LIST: ____ . ANY NEW PROBLEMS WITH YOUR MEDICATIONS? NO . WHEN DID YOU LAST EAT? ____7 PM LAST NIGHT . WHEN DID YOU LAST DRINK? ____ . WHAT DID YOU LAST DRINK? ____10 AM THIS MORNING . NAME OF PERSON DRIVING YOU HOME? __VOLUNTEER , ____TRANSPORTATION . DO YOU HAVE ANY OTHER QUESTIONS OR CONCERNS NO . VITAL SIGNS WT 210 LBS, HT 67", BMI 32.89 INDEX, BP 145/89 MM HG, REPEAT BP 126/83 MM HG, HR 122 /MIN, RR 18 /MIN, TEMP 97.8 F, OXYGEN SAT % 97%, SAFE IN ENV? (Y/N) YES, NA INITIALS SC 11:34, REVIEWED BY: KGRN IS AWARE OF PT'S HEART RATE. ASSESSMENTS CHRONIC MIGRAINE - G43.709 (PRIMARY) PROCEDURES PN BOTOX INJECTIONS SUBSEQUENT INJECTIONS PRE PROCEDURE DIAGNOSIS CHRONIC MIGRAINE HEADACHES. POST PROCEDURE DIAGNOSIS CHRONIC MIGRAINE HEADACHES. PROCEDURE BOTOX INJECTION AT THE HEAD, NECK AND SHOULDERS. SURGEON DR. HARRISON ZEPEDA SPOOLER OPERATOR NONE ANESTHESIA NONE PRE PROCEDURE NOTE THE PATIENT HAS HISTORY OF CHRONIC MIGRAINE HEADACHES. I EVALUATE THE PATIENT AND REVIEWED THE CHART. I WENT OVER THE RISKS, ALTERNATIVES, AND BENEFITS ASSOCIATED WITH THIS PROCEDURE. THE PATIENT WOULD LIKE TO PROCEED AND GIVE CONSENT TO PERFORMED THE PROCEDURE. THE PATIENT DENIES UNEXPLAINABLE WEIGHT LOSS, FEVER, CHILLS, OR NEW CHANGES IN URINARY OR BOWEL CONTROL. THE PATIENT DID A BOTOX INJECTION AT THE HEAD, NECK AND SHOULDERS 4 MONTHS AGO AND EXPRESSED MORE THAN 50% REDUCTION ON THE FREQUENCY AND INTENSITY OF THE HEADACHES DURING THE LAST 3 MONTHS. LAST MONTH HER PAIN HAS COME BACK. NOW SHE IS HAVING HEADACHES EVERY DAY OF THE MONTH. THE PATIENT REPORTS THE IMPORTANCE OF HAVING BOTOX EVERY 3 MONTHS. THE PATIENT EXPRESS THAT THE USE OF BOTOX HAS REDUCE SIGNIFICANTLY THE SEVERITY OF THE HEADACHES AND EXPRESSED THAT WANT TO RECEIVE THIS PROCEDURE AGAIN TODAY AND CONTINUE DOING IT EVERY 3 MONTHS. DESCRIPTION OF PROCEDURE THE PATIENTS WAS BROUGHT TO THE PROCEDURE ROOM AND PLACED IN THE SUPINE POSITION. I CHECKED LATERALITY AND THE AREAS WHERE THE PROCEDURE WAS GOING TO BE PERFORMED WITH THE PATIENT AND THE SUPPORTING STAFF AT THE MOMENT OF THE TIME OUT IN THE PROCEDURE ROOM. FOR THE PROCEDURE I USED A SOLUTION OF 5 UNITS OF BOTOX PER EACH 0.1 ML OF THE SOLUTION. I USED A 30-GAUGE NEEDLE TO INJECT THE SOLUTION AT THE SELECTED LOCATIONS. I INJECTED FIRST THE RIGHT AND LEFT LINUX SYSTEM ENGINEER MUSCLES. THE LANDMARK FOR BOTH INJECTIONS WAS APPROXIMATELY 1 CM ABOVE THE SUPERIOR MEDIAL EDGE OF THE EYEBROW. AFTER THESE TWO INJECTIONS, I INJECTED THE PROCERUS MUSCLE AT THE MIDLINE POINT BETWEEN THESE FIRST TWO INJECTIONS. THEN I PROCEEDED TO INJECT THE RIGHT AND LEFT FRONTALIS MUSCLE. TWO INJECTIONS WERE DONE IN EACH SIDE. THE FIRST INJECTION WAS DONE APPROXIMATELY 2 CM ABOVE THE FIRST INJECTION OF THE LINUX SYSTEM ENGINEER. THE SECOND INJECTION WAS DONE APPROXIMATELY 1.5 CM LATERAL TO THIS FIST INJECTION OF THE FRONTALIS OF EACH SIDE. AFTER THE INJECTIONS OVER THE FOREHEAD WERE DONE, THE PATIENT'S HEAD WAS TURNED TO THE LEFT SIDE AND WE STARTED TO WORK WITH THE RIGHT TEMPORALIS MUSCLE. FIRST INJECTION WAS DONE IN A VERTICAL LINE OF THE TRAGUS APPROXIMATELY 3 CM ABOVE THE TRAGUS. THE SECOND INJECTION WAS DONE APPROXIMATELY 2 CM ABOVE THE FIRST INJECTION. THE THIRD INJECTION WAS DONE APPROXIMATELY 1 CM FRONT EDMOND FROM THIS VERTICAL LINE CREATED AT THE LEVEL OF THE TRAGUS, NURSING HOME BETWEEN THESE TWO INJECTIONS. THE FOURTH INJECTION WAS DONE APPROXIMATELY 1.5 CM BACK FROM THE SECOND INJECTION TO THE TEMPORALIS IN LINE TO THE MIDPORTION OF THE EAR. THEN, WE PROCEEDED TO INJECT THE LEFT TEMPORALIS MUSCLE. WE CLEANED THE AREA WITH ALCOHOL AND PROCEEDED TO PERFORM THE SAME FOR INJECTIONS DESCRIBED ABOVE BUT IN THE LEFT TEMPORALIS MUSCLE USING THE SAME LANDMARKS. AFTER THESE INJECTIONS WERE DONE, THE PATIENT WAS SEATED. FIRST, WE STARTED TO INJECT THE LEFT AND RIGHT OCCIPITALIS MUSCLE. I INJECTED AT THE FOLLOWING PLACES IN THE RIGHT AND LEFT MUSCLE. THE FIRST INJECTION WAS DONE AT THE MIDPOINT POSITION BETWEEN THE MASTOID PROCESS AND THE INION OF THE OCCIPITAL PROTUBERANCE. THE SECOND INJECTION WAS DONE APPROXIMATELY 1.5 CM SUPERIOR AND LATERAL OF THIS POINT. THE THIRD INJECTION WAS DONE APPROXIMATELY 1.5 CM SUPERIOR AND MEDIAL TO THIS FIRST INJECTION. THEN, I PROCEEDED TO INJECT THE RIGHT AND LEFT PARASPINAL MUSCLES. LANDMARK OF THE INJECTION WERE APPROXIMATELY: FIRST INJECTION 3 CM BELOW THE INION AND 1 CM LATERAL TO THE MIDLINE AND SECOND INJECTION AT EACH SIDE WAS DONE APPROXIMATELY 1.5 CM SUPERIOR AND LATERAL OF THE FIRST INJECTION. THE LAST GROUP OF INJECTIONS WAS DONE OVER THE RIGHT AND LEFT TRAPEZIUS MUSCLE OVER THE SHOULDERS AREA. THE FIRST INJECTION WAS DONE AT THE MIDPOINT BETWEEN THE INFLECTION POINT BETWEEN THE NECK AND SHOULDER AND THE ACROMION. THE SECOND AND THIRD INJECTIONS WERE DONE APPROXIMATELY 2.5 CM LATERAL AND MEDIAL FROM THIS FIRST INJECTION. SAME TARGETS WERE USED IN THE RIGHT AND LEFT SIDE. IN TOTAL, I INJECTED 155 UNITS OF BOTOX. PROCEDURE WAS DONE WITHOUT EVIDENCE OF PARESTHESIA, PNEUMOTHORAX, OR ANY COMPLICATIONS. THE PATIENT TOLERATED THE PROCEDURE VERY WELL. THE PATIENT WAS SENT TO THE RECOVERY ROOM FOR OBSERVATIONS. INJECTIONS WERE DONE AFTER CLEANING WITH ALCOHOL, USING ASEPTIC TECHNIQUES POST PROCEDURE NOTE THE PROCEDURE DONE WAS DISCUSSED WITH THE PATIENT. THE PATIENT WILL BE SEEN IN A FOLLOW UP IN THE NEXT FEW WEEKS. INSTRUCTIONS WERE GIVEN, QUESTIONS WERE ANSWERED, AND THE PATIENT EXPRESSED UNDERSTANDING AND AGREES WITH THE PLAN. I, MARTA VILLELA, DOCUMENTED THE ABOVE INFORMATION ACTING A SCRIBE FOR DR. ZEPEDA. I HAVE REVIEWED THE ABOVE DOCUMENT, WRITTEN BY MARTA NUÑEZ AND I VERIFY THAT IT IS ACCURATE. PROCEDURE CODES 12072 CHEMODENERV MUSC MIGRAINE DISPOSITION & COMMUNICATION FOLLOW UP 3 WEEKS ELECTRONICALLY SIGNED BY HARRISON ZEPEDA MD, MD ON 11/15/2018 AT 02:54 PM EST DISCLAIMER : THIS IS A VISIT SUMMARY EXTRACTED FROM THE [employer] CHART. IT IS NOT A COPY OF THE [employer] PROGRESS NOTE. GELACIO
== END ==
LOC: M PAIN 11:30
PROVIDERS: ATTEND Anesthesiology
DX: G43.709 Chronic migraine without aura, not intractable, without status migrainosus (principal); F41.9 Anxiety disorder, unspecified; F31.9 Bipolar disorder, unspecified; I73.00 Raynaud's syndrome without gangrene; J45.909 Unspecified asthma, uncomplicated; G47.30 Sleep apnea, unspecified; F10.21 Alcohol dependence, in remission; Z79.899 Other long term (current) drug therapy; Z88.5 Allergy status to narcotic agent; Z88.8 Allergy status to other drugs, medicaments and biological substances; Z91.040 Latex allergy status; Z86.69 Personal history of other diseases of the nervous system and sense organs; Z98.84 Bariatric surgery status; Z87.11 Personal history of peptic ulcer disease
CPT/HCPCS: 64615; J0585

== ENCOUNTER → 2018-11-05 | Outpatient (CLI) | payer OTHER ==
[~2018-11-05] MED LIST changes: -BOTULINUM INJ 100 UNITS (J0585) IM ONE; -diazePAM 5 MG TAB As Ordered ONE; -oxyCODONE 5MG TAB As Ordered ONE
--- NOTE | 2018-11-21 23:30 | ECWPNPC ---
PATIENT NAME: ADELA ALMONTE : 1980 GENDER: FEMALE VISIT DATE: 11/05/2018 DISCHARGE DATE: 11/05/18 1447 VISIT LOCKED DATE TIME: PHYSICIAN: HARRISON ZEPEDA MD RESOURCE: HARRISON ZEPEDA MD REASON FOR APPOINTMENT 1. PER DR Palencia D/C ON 11/02/18 HISTORY OF PRESENT ILLNESS HISTORY OF PRESENT ILLNESS: PAIN THE PATIENT DESCRIBES THE PAIN... 38 YEAR OLD FEMALE PATIENT WITH A HISTORY OF CHRONIC BACK PAIN. THE PATIENT DESCRIBES THE PAIN ACHING, BURNING, SORE, TENDER, SHARP, SHOOTING, AND LASTING ALL DAY WITH A PAIN SCORE OF 7-10/10 DEPENDING ON PHYSICAL ACTIVITY. THE PATIENT SAYS THAT HER PAIN IS LOCATED IN HER BACK, BUT MAINLY HER LOW BACK. THE PATIENT SAYS THE PAIN RADIATES DOWN HER RIGHT LEG WITH SOME NUMBNESS AND TINGLING. THE PATIENT SAYS THAT THE BUTRAN'S PATCH HAS NOT BEEN HELPING AND IT HAS GIVEN HER A RASH. PATIENT DENIES UNEXPLAINABLE WEIGHT LOSS, FEVER, CHILLS, NEW CHANGES ON HER URINARY OR BOWEL CONTROL. FALL RISK SCREENING: SCREENING :TWO OR MORE FALLS WITHOUT INJURY IN THE PAST YEAR CURRENT MEDICATIONS TAKING IMITREX 4 MG/0.5ML SOLUTION 1 INJECTION NEEDED AT THE ONSET OF A MIGRAINE SUBCUTANEOUS REPEAT TIMES ONE IF NOT EFFECTIVE (DR JC) TAKING VRAYLAR 3 MG CAPSULE 1 CAPSULE ORALLY ONCE A DAY TAKING CUVITRU 4 GM/20ML SOLUTION 14 GRAMS SUBCUTANEOUS WEEKLY TAKING VYVANSE 70 MG CAPSULE ORALLY ONCE A DAY TAKING NARATRIPTAN HCL 2.5 MG TABLET 1 TABLET NEEDED ONE TIME ORALLY ONCE A DAY TAKING HYDROXYZINE HCL 25 MG TABLET 1 TAB ORALLY FOUR TIMES DAILY TAKING BUSPIRONE HCL 30 MG TABLET 1 TABLET ORALLY TWICE A DAY TAKING VITAMIN B-12 1000 MCG TABLET 1 TABLET ORALLY ONCE A DAY TAKING VITAMIN D 2000 UNIT TABLET 1 TABLET ORALLY ONCE A DAY TAKING PHENERGAN 25 MG TABLET 1 TABLET ORALLY EVERY 6 HRS PRN NAUSEA TAKING PROTONIX 40 MG TABLET DELAYED RELEASE 1 TABLET BID ORALLY 30 DAY(S) ORALLY BID TAKING LASIX 20 MG TABLET 1 TABLET ORALLY ONCE A DAY TAKING FERROUS SULFATE 325 (65 FE) MG TABLET 1 TABLET ORALLY EVERY OTHER DAY TAKING CHANTIX 1 MG 1 TAB ORAL BID TAKING ACETAMINOPHEN 500 MG CAPSULE 1 CAPSULES NEEDED ORALLY EVERY 6 HRS PRN TAKING FLUTICASONE PROPIONATE 50 MCG/ACT SUSPENSION 1 SPRAY IN EACH NOSTRIL NASALLY ONCE A DAY TAKING CLARITIN 10 MG TABLET 1 TABLET ORALLY ONCE A DAY TAKING IBUPROFEN 800 MG TABLET 1 TABLET WITH FOOD OR MILK NEEDED ORALLY THREE TIMES A DAY NEEDED FOR SEVERE HEADACHES TAKING MUPIROCIN CALCIUM 2 % CREAM 1 APPLICATION TO AFFECTED AREA EXTERNALLY NOSE GROIN AXILLA HEAD BID 1 WEEK/PRN TAKING ALBUTEROL SULFATE (2.5 MG/3ML) 0.083% NEBULIZATION SOLUTION 1 VIAL INHALATION EVERY 6 HRS PRN TAKING VENTOLIN HFA 108 (90 BASE) MCG/ACT AEROSOL SOLUTION 2 PUFFS NEEDED INHALATION EVERY 4 HRS PRN TAKING TRILEPTAL 300 MG TABLET 1 TABLET ORALLY TWICE A DAY TAKING CYCLOBENZAPRINE HCL 10 MG TABLET 1 TABLET NEEDED ORALLY THREE TIMES A DAY TAKING LYRICA 150 MG CAPSULE 1 CAPSULE ORALLY THREE TIMES A DAY MDD=3 TAKING AUGMENTIN 875-125 MG TABLET 1 TABLET ORALLY EVERY 12 HRS TAKING DIFLUCAN 150 MG TABLET 1 TABLET ORALLY EVERY 3 DAYS NEEDED TAKING VALIUM 5 MG TABLET 1 TABLET NEEDED ORALLY ONCE A DAY NEEDED PRIOR TO DENTAL APPOINTMENT TAKING KETOCONAZOLE 2 % CREAM 1 APPLICATION TO AFFECTED AREA EXTERNALLY ONCE A DAY TO BOTH FEET TAKING CARAFATE 1 GM TABLET 1 TABLET AT BEDTIME ON AN EMPTY STOMACH BEFORE MEALS ORALLY FOUR TIMES DAILY, NOTES: 11-01-18 2100 TAKING NIFEDIPINE 20 MG CAPSULE 1 CAPSULE ORALLY DAILY, NOTES: 11-02-18 0800 TAKING LOSARTAN POTASSIUM 25 MG TABLET 1 TABLET ORALLY ONCE A DAY, NOTES: 0800 TAKING MULTIVITAMIN GUMMIES ADULT - TABLET CHEWABLE 2 ORALLY DAILY TAKING PROBIOTIC - CAPSULE 2 CAPSULES ORALLY DAILY TAKING CALCIUM 600 + D 600-200 MG-UNIT TABLET 1 TABLET WITH A MEAL ORALLY ONCE A DAY MEDICATION LIST REVIEWED AND RECONCILED WITH THE PATIENT PAST MEDICAL HISTORY SURGICAL MENOPAUSE S/P ELIA & BSO 2009 CHRONIC NECK/MID/LOW BACK PAIN PEPTIC ULCER DISEASE, S/P GASTRIC BYPASS - ON PROTONIX AND CARAFATE BY DR. MILLER BIPOLAR, ANXIETY, DEPRESSION - FOLLWS WITH DR. OTERO ALCOHOLISM MIGRAINE HEADACHES TOBACCO USE ADD CHRONIC RHINITIS/SINUSITIS RAYNAUD'S SYNDROME COMMON VARIABLE AUTOIMMUNE DEFICIENCY DISEASE ASTHMA HEART MURMUR - ECHO 10/2017 BORDERLINE LVH, MILD LAE, SUBTLE AV SCLEROSIS, AORTIC SCLEROSIS, MILD AR, MILD MR SLEEP APNEA WITH BIPAP S/P GASTRIC BYPASS FAINTING SPELLS ALLERGIES MORPHINE: , DIFF. BREATHING: ALLERGY LATEX: HIVES: ALLERGY DILAUDID: HIVES, DIFF. BREATHING: ALLERGY REGLAN: HIVES: ALLERGY LAMICTAL: HIVES: ALLERGY DEPAKOTE: CONFUSION: CONTRAINDICATION RISPERDAL: SUICIDAL IDEATION: ALLERGY KETOROLAC TROMETHAMINE: ANAPHYLAXIS: ALLERGY MUSCLE RELAXERS: ALTERED MENTAL STATUS: SIDE EFFECTS GASTROGRAFIN: HIVES: ALLERGY SURGICAL HISTORY LUMBAR LAMINECTOMY [place] 02/11 BACK SURGERY 1997 LAPAROTOMY X 4...CARTHAGE....DR. CRISTOBAL CHOLECYSTECTOMY 07/13 ELIA W/ AGUDELO, APPENDECTOMY - FOR ENDOMETRIOSIS 12/13 GASTRIC BYPASS (DR. CARTAGENA, [facility]) 01/2012 LAPAROSCOPY AND REMOVAL OF ADHESIONS (DR. BARRERA) 12/2012 CHEST TUBE ENDOSCOPY/COLONOSCOPY BLOOD TRANSFUSION BLADDER REPAIR 10/2016 LAPROSCOPC SURGERY FOR ENDOMETRIOSIS / LYSIS OF ADHESIONS AND SCAR TISSUE (BOWEL NICKED IN OR). 12/19/17 EGD - ESOPHAGEAL PLAQUE - BIOPSY RESULTS NOT SENT TO US (DR. MILLER) 05/2018 FAMILY HISTORY FATHER: ALIVE, DIAGNOSED WITH STROKE, CANCER MOTHER: ALIVE, DIAGNOSED WITH DIABETES, HYPERTENSION, HEART DISEASE FATHER SKIN CANCERSISTER WITH HOSHIMOTO'S. SOCIAL HISTORY GENERAL: TOBACCO USE ARE YOU A:CURRENT SMOKER ARE YOU INTERESTED IN QUITTING?READY TO QUIT ON DAY 10 OF CHANTIX CURRENTLY, DECREASED AMOUNT A CIGARETTES. COUNSELED THE PATIENT ON TOBACCO USE, CESSATION [id number]/31/2019 HOW MANY CIGARETTES A DAY DO YOU SMOKE?6-10 HOW SOON AFTER YOU WAKE UP DO YOU SMOKE YOUR FIRST CIGARETTE?AFTER 60 MIN HOW OFTEN DO YOU SMOKE CIGARETTES?EVERY DAY PATIENT COUNSELED ON THE DANGERS OF TOBACCO USE AND URGED TO QUIT:11/05/2018 LUNG CANCER SCREENING SMOKING STATUS:CURRENT SMOKER BMI CARE GOAL FOLLOW-UP ABOVE NORMAL BMI FOLLOW-UPDIETARY MANAGEMENT EDUCATION, GUIDANCE, AND COUNSELING, DIETARY NEEDS EDUCATION, EXERCISE PROMOTION: STRENGTH TRAINING ALCOHOL SCREENING DID YOU HAVE A DRINK CONTAINING ALCOHOL IN THE PAST YEAR?NO POINTS0 INTERPRETATIONNEGATIVE RECREATIONAL DRUG USE DRUG USE?NO CAFFEINE CAFFEINE USE?YES 2-3 CUPS COFFEE & ICED TEA THROUGH THE DAY. SEXUAL HX HAD SEX IN THE LAST 12 MONTHS (VAGINAL, ORAL, OR ANAL)?NO LMP:2009 HAVE YOU EVER HAD AN STD?NO HIV / HEP-C SCREENING HIV TEST OFFERED TO PATIENT:YES DATE OFFERED:03/13/2017 TEST ACCEPTED:NO HEP-C TEST OFFERED TO PATIENT:NO REASON:PATIENT DECLINED [employer] [id number] L[employer]UAGES SPOKEN:COMORAN EDUCATION LEVEL OF EDUCATION:NOT FINISHED COLLEGE LEARNING BARRIERS / SPECIAL NEEDS CHANGE FROM LAST VISIT?NO BARRIERS TO LEARNING?NO HEARING IMPAIRED?NO VISION IMPAIRED?NO COGNITIVELY IMPAIRED?NO READINESS TO LEARN?YES LEARNING PREFERENCES?NO LEARNING CAPABILITIES PRESENT?YES EMOTIONAL BARRIERS?NO SPECIAL DEVICES?NO CUSTOMER SOLUTIONS ARCHITECT NEEDED?NO DOMESTIC VIOLENCE DO YOU FEEL SAFE IN YOUR ENVIRONMENT?YES OCCUPATION: UNEMPLOYED. DIET: REGULAR. EXERCISE: NO REGULAR EXERCISE. MARITAL STATUS: SINGLE. PAIN CLINIC PFS, CLERGY, PUBLIC HEALTH REFERRALS PFS REFERRAL NEEDED?NO CLERGY REFERRAL NEEDED?NO PUBLIC HEALTH REFERRAL NEEDED?NO HAS THE PATIENT BEEN EDUCATED REGARDING HIS/HER PLAN OF CARE?YES HAS THE PATIENT BEEN EDUCATED REGARDING PAIN, THE RISK FOR PAIN, THE IMPORTANCE OF EFFECTIVE PAIN MANAGEMENT, AND THE PAIN ASSESSMENT PROCESS?YES ADVANCE DIRECTIVE ADVANCE DIRECTIVE DISCUSSED WITH PATIENT:YES 11/05/18 PT DOES NOT HAVE ANY ADVANCED DIREDCTIVES AND SHE DECLINES INFORMATION ON HCP AT THIS TIME. AD REVIEWED WITH PT 06/23/18 1154 BVREVIEWED WITH PATIENT 07/07/18 1158 JS11/05/18 REVIEWED WITH PT. AD. HOSPITALIZATION/MAJOR DIAGNOSTIC PROCEDURE SURGERY RELATED [facility] ([facility]) 05/2012 ADMITTED TO [facility] 12/2015 [facility] 10/2015 [facility] 2 DAY HOSPITAL STAY DUE TO NICKED BOWEL 12/19/2017 PNEUMONIA 07/2018 REVIEW OF SYSTEMS REVIEWED BY: PROVIDER: HARRISON ZEPEDA MD . CONSTITUTIONAL: ANY CHANGE IN YOUR MEDICAL CONDITION? NO . CHILLS NO . FEVER NO . INFECTION: DO YOU HAVE NEW INFECTIONS? NO . DO YOU HAVE HISTORY OF MRSA? NO . MUSCULOSKELETAL: ANY NEW PATTERNS OF PAIN OR NUMBNESS? YES, FEET ARE PAINFUL AND NUMBNESS AND TINGLING ARE INCREASED IN HER TOES . GASTROENTEROLOGY: ANY NEW CHANGE IN BOWEL CONTROL? NO . GENITOURINARY: ANY NEW CHANGE IN BLADDER CONTROL? YES, SOMETIMES SHE IS UNABLE TO HOLD HER URINES. THIS HAS BEEN SINCE SHE RUPTURED HER BLADDER. SHE ALSO HAS STRESS INCONTINENCE. THIS HAS BEEN WORSE SINCE SHE FELL IN SEP. . IS THERE A CHANCE YOU COULD BE ? NO . HEMATOLOGY/LYMPH: DO YOU TAKE ANY BLOOD THINNERS? (FOR EXAMPLE- COUMADIN, PLAVIX, AGGRENOX, PLATEL, PRADAXA, OR XARELTO) NO . WHEN WAS YOUR LAST DOSE? DATE: TIME: . NEUROLOGY: HAVE YOU FALLEN IN THE PAST 12 MONTHS? YES, STATES SHE HAS FALLEN SEVERAL TIMES--HER KNEES JUST GIVE OUT. LAST TIME WAS IN SEP. NOT EVALUATED AFTER. JUST HAS BRUISES AFTER. THOUGHT SHE HAD BROKE HER LEFT WRIST. HER BACK AND AND RIGHT BUTTOCK HAS HURT MORE SINCE. AD . ANY NEW EXTREMITY NUMBNESS OR WEAKNESS? NO . CARDIOLOGY: DO YOU HAVE A PACEMAKER OR DEFIBRILLATOR? NO . RESPIRATORY: HAVE YOU BEEN SICK IN THE PAST WEEK? NO . FEVER NO . FLU LIKE SYMPTOMS? NO . COUGH NO . INTEGUMENTARY: DO YOU HAVE ANY RASHES OR OPEN SORES? NO . ALLERGIC/IMMUNO: ARE YOU ALLERGIC TO IV DYE? NO . ANY NEW ALLERGIES? NO . PSYCHIATRIC: DO YOU HAVE THOUGHTS OF HURTING YOURSELF OR SOMEONE ELSE? NO . ARE YOU ABUSED, NEGLECTED, OR IN AN UNSAFE ENVIRONMENT? NO . ENDOCRINOLOGY: ARE YOU DIABETIC? NO . OTHER: DO YOU NEED ANY PRESCRIPTIONS? YES . IF YES, PLEASE LIST: LYRICA AND FLEXERIL . ANY NEW PROBLEMS WITH YOUR MEDICATIONS? NO . WHEN DID YOU LAST EAT? ____ . WHEN DID YOU LAST DRINK? ____ . WHAT DID YOU LAST DRINK? ____ . NAME OF PERSON DRIVING YOU HOME? ____ . DO YOU HAVE ANY OTHER QUESTIONS OR CONCERNS NO "NEEDS SOMETHING FOR PAIN CONTROL" . VITAL SIGNS WT 208 LBS, HT 67", BMI 32.57 INDEX, BP 133/74 MM HG, HR 103 /MIN, RR 18 /MIN, TEMP 96.0 F, OXYGEN SAT % 97%, SAFE IN ENV? (Y/N) Y, NA INITIALS AW 1240, REVIEWED BY: AD. EXAMINATION GENERAL EXAMINATION: PATIENT IS ALERT O X 3 AND COOPERATIVE. TENDERNESS OVER THE LOW BACK AREA. MRI OF THE LUMBAR SPINE DONE ON 09/04/2016 SHOWS POST LAMINECTOMY CHANGES AND A BULGING DISC AT L4-L5. ASSESSMENTS MYALGIA, OTHER SITE - M79.18 (PRIMARY) LUMBAR POST-LAMINECTOMY SYNDROME - M96.1 TREATMENT MYALGIA, OTHER SITE CLINICAL NOTES: WE DISCUSSED SEVERAL ISSUES WITH MRS. ALMONTE'S PAIN MANAGEMENT CASE. I WOULD LIKE TO START THE PATIENT ON BELBUCA SINCE SHE GOT A RASH FROM THE BUTRAN'S PATCH. I WILL GIVE THE PATIENT HYDROCODONE FOR ONE WEEK AND INCREASE HER LYRICA. THE PATIENT WILL FOLLOW UP WITH A NURSE PRACTITIONER IN A FEW WEEKS. INSTRUCTIONS WERE GIVEN, QUESTIONS WERE ANSWERED, PATIENT REPORTS UNDERSTANDING AND AGREES WITH THE PLAN. I, MARTA VILLELA, DOCUMENTED THE ABOVE INFORMATION ACTING A SCRIBE FOR DR. ZEPEDA. I HAVE REVIEWED THE ABOVE DOCUMENT, WRITTEN BY MARTA KAISERIBKarissa AND I VERIFY THAT IT IS ACCURATE. OTHERS START BELBUCA FILM, 75 MCG, 1 FILM TO THE GUM, BUCALLY, EVERY 12 HRS, 30 DAY(S), 60, REFILLS 0 START HYDROCODONE-ACETAMINOPHEN TABLET, 5-325 MG, 1 TABLET NEEDED, ORALLY FOR PAIN, EVERY 6 HRS MDD2, 7 DAY(S), 14, REFILLS 0 CONTINUE LYRICA CAPSULE, 200 MG, 1 CAPSULE, ORALLY, THREE TIMES A DAY MDD=3, 30 DAY(S), 90, REFILLS 0 START TIZANIDINE HCL TABLET, 4 MG, 1 TABLET NEEDED, ORALLY FOR SPASMS, BEFORE BEDTIME MAY REPEAT IN 5HRS MDD2, 30 DAY(S), 50, REFILLS 0 PREVENTIVE MEDICINE PAIN CLINIC TEACHING: MEDICATIONS BELBUCA NEW MEDICATION WRITTEN INFORMATION PROVIDED TO PT.. PROCEDURE CODES FA211 ESTABILISHED PATIENT [facility] CHARGE [id number] CURRENT MEDS W/DOSAGES DOCUMENTED G8730 PAIN ASSESS POS TOOL F/U PLAN DOC DISPOSITION & COMMUNICATION FOLLOW UP 3 WEEKS ELECTRONICALLY SIGNED BY HARRISON ZEPEDA MD, ON 11/21/2018 AT 04:41 PM EST DISCLAIMER : THIS IS A VISIT SUMMARY EXTRACTED FROM THE [email or web address] CHART. IT IS NOT A COPY OF THE [employer] PROGRESS NOTE. GELACIO
== END ==
LOC: M PAIN 12:45
PROVIDERS: ATTEND Anesthesiology
DX: M79.18 Myalgia, other site (principal); M96.1 Postlaminectomy syndrome, not elsewhere classified; F31.9 Bipolar disorder, unspecified; F41.9 Anxiety disorder, unspecified; G43.909 Migraine, unspecified, not intractable, without status migrainosus; I73.00 Raynaud's syndrome without gangrene; J45.909 Unspecified asthma, uncomplicated; G47.30 Sleep apnea, unspecified; F10.10 Alcohol abuse, uncomplicated; F17.210 Nicotine dependence, cigarettes, uncomplicated; Z79.899 Other long term (current) drug therapy; Z88.5 Allergy status to narcotic agent; Z88.8 Allergy status to other drugs, medicaments and biological substances; Z91.040 Latex allergy status; Z91.81 History of falling; Z86.69 Personal history of other diseases of the nervous system and sense organs; Z98.84 Bariatric surgery status

== ENCOUNTER → 2018-11-17 | Outpatient (CLI) | payer OTHER ==
[~2018-11-17] MED LIST changes: +BUPIVACAINE HCL 0.25% 30 ML VIAL As Ordered ONE; +ISOVUE-M 300 61% 15ML VIAL (Q9967) As Ordered ONE; +LIDOCAINE 1% SDV INJ 30 ML VIAL As Ordered ONE; +TRIAMCINOLONE ACETONIDE SUSP 40 MG/ML VIAL (J3301) As Ordered ONE; +diazePAM 5 MG TAB As Ordered ONE; +diphenhydrAMINE 25 MG CAP As Ordered ONE; +oxyCODONE 5MG TAB As Ordered ONE
--- NOTE | 2018-11-18 14:06 | REP ---
FLUOROSCOPIC GUIDANCE FOR BILATERAL SI JOINT INJECTION: 11/17/2018. Clinical history: Low back pain. Findings: Two images from C-arm fluoroscopy provided to Dr. Eduardo of the pain clinic are reviewed with the one image for each side. A needle overlies the inferior aspect of the SI joint on each side with some contrast adjacent. Fluoroscopy time: 25 seconds. Electronically Signed by Ted Mejía MD 11/18/2018 03:27 P
--- NOTE | 2018-12-03 00:19 | ECWPNPC ---
PATIENT NAME: ADELA ALMONTE : 1980 GENDER: FEMALE VISIT DATE: 11/17/2018 DISCHARGE DATE: 11/17/18 1218 VISIT LOCKED DATE TIME: PHYSICIAN: HARRISON ZEPEDA MD RESOURCE: HARRISON ZEPEDA MD REASON FOR APPOINTMENT 1. SIJ HISTORY OF PRESENT ILLNESS HISTORY OF PRESENT ILLNESS: PAIN THE PATIENT DESCRIBES THE PAIN... FALL RISK SCREENING: SCREENING :NO FALLS IN THE PAST YEAR CURRENT MEDICATIONS TAKING IMITREX 4 MG/0.5ML SOLUTION 1 INJECTION NEEDED AT THE ONSET OF A MIGRAINE SUBCUTANEOUS REPEAT TIMES ONE IF NOT EFFECTIVE (DR JC), NOTES: 2WEEKS AGO TAKING VRAYLAR 3 MG CAPSULE 1 CAPSULE ORALLY ONCE A DAY, NOTES: 11/16/18@1900 TAKING CUVITRU 4 GM/20ML SOLUTION 14 GRAMS SUBCUTANEOUS WEEKLY, NOTES: 1 WEEK AGO TAKING VYVANSE 70 MG CAPSULE ORALLY ONCE A DAY, NOTES: 0500 TAKING NARATRIPTAN HCL 2.5 MG TABLET 1 TABLET NEEDED ONE TIME ORALLY ONCE A DAY, NOTES: 2 WEEKS AGO TAKING HYDROXYZINE HCL 25 MG TABLET 1 TAB ORALLY FOUR TIMES DAILY, NOTES: 11/16/18@1900 TAKING BUSPIRONE HCL 30 MG TABLET 1 TABLET ORALLY TWICE A DAY, NOTES: 0500 TAKING VITAMIN B-12 1000 MCG TABLET 1 TABLET ORALLY ONCE A DAY, NOTES: 11/16/18@0500 TAKING VITAMIN D 2000 UNIT TABLET 1 TABLET ORALLY ONCE A DAY, NOTES: 11/16/18@0500 TAKING PHENERGAN 25 MG TABLET 1 TABLET ORALLY EVERY 6 HRS PRN NAUSEA, NOTES: 0500 TAKING PROTONIX 40 MG TABLET DELAYED RELEASE 1 TABLET BID ORALLY 30 DAY(S) ORALLY BID, NOTES: 0500 TAKING LASIX 20 MG TABLET 1 TABLET ORALLY ONCE A DAY, NOTES: 0500 TAKING FERROUS SULFATE 325 (65 FE) MG TABLET 1 TABLET ORALLY EVERY OTHER DAY, NOTES: 11/16/18@0500 TAKING CHANTIX 1 MG 1 TAB ORAL BID, NOTES: 2 DAYS TAKING ACETAMINOPHEN 500 MG CAPSULE 1 CAPSULES NEEDED ORALLY EVERY 6 HRS PRN, NOTES: 11/16/18@1900 TAKING FLUTICASONE PROPIONATE 50 MCG/ACT SUSPENSION 1 SPRAY IN EACH NOSTRIL NASALLY ONCE A DAY, NOTES: 0500 TAKING CLARITIN 10 MG TABLET 1 TABLET ORALLY ONCE A DAY, NOTES: 0500 TAKING IBUPROFEN 800 MG TABLET 1 TABLET WITH FOOD OR MILK NEEDED ORALLY THREE TIMES A DAY NEEDED FOR SEVERE HEADACHES, NOTES: 11/16/18@1899 TAKING ALBUTEROL SULFATE (2.5 MG/3ML) 0.083% NEBULIZATION SOLUTION 1 VIAL INHALATION EVERY 6 HRS PRN, NOTES: 1 MONTH AGOI TAKING VENTOLIN HFA 108 (90 BASE) MCG/ACT AEROSOL SOLUTION 2 PUFFS NEEDED INHALATION EVERY 4 HRS PRN, NOTES: 3 DAYS AGO TAKING TRILEPTAL 300 MG TABLET 1 TABLET ORALLY TWICE A DAY, NOTES: 0500 TAKING KETOCONAZOLE 2 % CREAM 1 APPLICATION TO AFFECTED AREA EXTERNALLY ONCE A DAY TO BOTH FEET, NOTES: 11/16/18 TAKING CARAFATE 1 GM TABLET 1 TABLET AT BEDTIME ON AN EMPTY STOMACH BEFORE MEALS ORALLY FOUR TIMES DAILY, NOTES: 11/16/18 TAKING NIFEDIPINE 20 MG CAPSULE 1 CAPSULE ORALLY DAILY, NOTES: 0500 TAKING LOSARTAN POTASSIUM 25 MG TABLET 1 TABLET ORALLY ONCE A DAY, NOTES: 0500 TAKING MULTIVITAMIN GUMMIES ADULT - TABLET CHEWABLE 2 ORALLY DAILY, NOTES: 11/16/18@499 TAKING PROBIOTIC - CAPSULE 2 CAPSULES ORALLY DAILY, NOTES: 0500 TAKING CALCIUM 600 + D 600-200 MG-UNIT TABLET 1 TABLET WITH A MEAL ORALLY ONCE A DAY, NOTES: 11/16/18@499 TAKING LYRICA 200 MG CAPSULE 1 CAPSULE ORALLY THREE TIMES A DAY MDD=3, NOTES: 0500 TAKING TIZANIDINE HCL 4 MG TABLET 1 TABLET NEEDED ORALLY FOR SPASMS BEFORE BEDTIME MAY REPEAT IN 5HRS MDD2, NOTES: 11/16/18 TAKING MUPIROCIN CALCIUM 2 % CREAM 1 APPLICATION TO AFFECTED AREA EXTERNALLY NOSE GROIN AXILLA HEAD BID 1 WEEK/PRN, NOTES: 1 WEEK AGO TAKING HYDROCODONE-ACETAMINOPHEN 5-325 MG TABLET 1 TABLET NEEDED ORALLY FOR PAIN DAILY MDD1, NOTES: 11/16/18 NOT-TAKING CYCLOBENZAPRINE HCL 10 MG TABLET 1 TABLET NEEDED ORALLY THREE TIMES A DAY NOT-TAKING AUGMENTIN 875-125 MG TABLET 1 TABLET ORALLY EVERY 12 HRS NOT-TAKING DIFLUCAN 150 MG TABLET 1 TABLET ORALLY EVERY 3 DAYS NEEDED NOT-TAKING VALIUM 5 MG TABLET 1 TABLET NEEDED ORALLY ONCE A DAY NEEDED PRIOR TO DENTAL APPOINTMENT NOT-TAKING BELBUCA 75 MCG FILM 1 FILM TO THE GUM BUCALLY EVERY 12 HRS, NOTES: HASN'T TAKEN YET MEDICATION LIST REVIEWED AND RECONCILED WITH THE PATIENT PAST MEDICAL HISTORY SURGICAL MENOPAUSE S/P ELIA & BSO 2010 CHRONIC NECK/MID/LOW BACK PAIN PEPTIC ULCER DISEASE, S/P GASTRIC BYPASS - ON PROTONIX AND CARAFATE BY DR. MILLER BIPOLAR, ANXIETY, DEPRESSION - FOLLWS WITH DR. OTERO ALCOHOLISM MIGRAINE HEADACHES TOBACCO USE ADD CHRONIC RHINITIS/SINUSITIS RAYNAUD'S SYNDROME COMMON VARIABLE AUTOIMMUNE DEFICIENCY DISEASE ASTHMA HEART MURMUR - ECHO 10/2017 BORDERLINE LVH, MILD LAE, SUBTLE AV SCLEROSIS, AORTIC SCLEROSIS, MILD AR, MILD MR SLEEP APNEA WITH BIPAP S/P GASTRIC BYPASS FAINTING SPELLS ALLERGIES MORPHINE: , DIFF. BREATHING: ALLERGY LATEX: HIVES: ALLERGY DILAUDID: HIVES, DIFF. BREATHING: ALLERGY REGLAN: HIVES: ALLERGY LAMICTAL: HIVES: ALLERGY DEPAKOTE: CONFUSION: CONTRAINDICATION RISPERDAL: SUICIDAL IDEATION: ALLERGY KETOROLAC TROMETHAMINE: ANAPHYLAXIS: ALLERGY MUSCLE RELAXERS: ALTERED MENTAL STATUS: SIDE EFFECTS GASTROGRAFIN: HIVES: ALLERGY SURGICAL HISTORY LUMBAR LAMINECTOMY [place] 02/11 BACK SURGERY 1997 LAPAROTOMY X 4...CARTHAGE....DR. CRISTOBAL CHOLECYSTECTOMY 07/13 ELIA W/ AGUDELO, APPENDECTOMY - FOR ENDOMETRIOSIS 12/13 GASTRIC BYPASS (DR. CARTAGENA, [facility]) 01/2012 LAPAROSCOPY AND REMOVAL OF ADHESIONS (DR. BARRERA) 12/2012 CHEST TUBE ENDOSCOPY/COLONOSCOPY BLOOD TRANSFUSION BLADDER REPAIR 10/2016 LAPROSCOPC SURGERY FOR ENDOMETRIOSIS / LYSIS OF ADHESIONS AND SCAR TISSUE (BOWEL NICKED IN OR). 12/19/17 EGD - ESOPHAGEAL PLAQUE - BIOPSY RESULTS NOT SENT TO US (DR. MILLER) 05/2018 FAMILY HISTORY FATHER: ALIVE, DIAGNOSED WITH STROKE, CANCER MOTHER: ALIVE, DIAGNOSED WITH DIABETES, HYPERTENSION, HEART DISEASE FATHER SKIN CANCERSISTER WITH HOSHIMOTO'S. SOCIAL HISTORY GENERAL: TOBACCO USE ARE YOU A:CURRENT SMOKER ARE YOU INTERESTED IN QUITTING?READY TO QUIT ON DAY 10 OF CHANTIX CURRENTLY, DECREASED AMOUNT A CIGARETTES. COUNSELED THE PATIENT ON TOBACCO USE, CESSATION [id number]/31/2019 HOW MANY CIGARETTES A DAY DO YOU SMOKE?6-10 HOW SOON AFTER YOU WAKE UP DO YOU SMOKE YOUR FIRST CIGARETTE?AFTER 60 MIN HOW OFTEN DO YOU SMOKE CIGARETTES?EVERY DAY PATIENT COUNSELED ON THE DANGERS OF TOBACCO USE AND URGED TO QUIT:11/17/2018 LUNG CANCER SCREENING SMOKING STATUS:CURRENT SMOKER BMI CARE GOAL FOLLOW-UP ABOVE NORMAL BMI FOLLOW-UPDIETARY MANAGEMENT EDUCATION, GUIDANCE, AND COUNSELING, DIETARY NEEDS EDUCATION, EXERCISE PROMOTION: STRENGTH TRAINING ALCOHOL SCREENING DID YOU HAVE A DRINK CONTAINING ALCOHOL IN THE PAST YEAR?NO POINTS0 INTERPRETATIONNEGATIVE RECREATIONAL DRUG USE DRUG USE?NO CAFFEINE CAFFEINE USE?YES 2-3 CUPS COFFEE & ICED TEA THROUGH THE DAY. SEXUAL HX HAD SEX IN THE LAST 12 MONTHS (VAGINAL, ORAL, OR ANAL)?NO LMP:2009 HAVE YOU EVER HAD AN STD?NO HIV / HEP-C SCREENING HIV TEST OFFERED TO PATIENT:YES DATE OFFERED:03/13/2017 TEST ACCEPTED:NO HEP-C TEST OFFERED TO PATIENT:NO REASON:PATIENT DECLINED JEWISH [id number] MU-ISM LANGUAGE LANGUAGES SPOKEN:PERSIAN EDUCATION LEVEL OF EDUCATION:NOT FINISHED COLLEGE LEARNING BARRIERS / SPECIAL NEEDS CHANGE FROM LAST VISIT?NO BARRIERS TO LEARNING?NO HEARING IMPAIRED?NO VISION IMPAIRED?NO COGNITIVELY IMPAIRED?NO READINESS TO LEARN?YES LEARNING PREFERENCES?NO LEARNING CAPABILITIES PRESENT?YES EMOTIONAL BARRIERS?NO SPECIAL DEVICES?NO RN PACU NEEDED?NO DOMESTIC VIOLENCE DO YOU FEEL SAFE IN YOUR ENVIRONMENT?YES OCCUPATION: UNEMPLOYED. DIET: REGULAR. EXERCISE: NO REGULAR EXERCISE. MARITAL STATUS: SINGLE. PAIN CLINIC PFS, CLERGY, PUBLIC HEALTH REFERRALS PFS REFERRAL NEEDED?NO CLERGY REFERRAL NEEDED?NO PUBLIC HEALTH REFERRAL NEEDED?NO WAS THE PROVIDER NOTIFIED OF ANY PERTINENT INFO?YES HAS THE PATIENT BEEN EDUCATED REGARDING HIS/HER PLAN OF CARE?YES HAS THE PATIENT BEEN EDUCATED REGARDING PAIN, THE RISK FOR PAIN, THE IMPORTANCE OF EFFECTIVE PAIN MANAGEMENT, AND THE PAIN ASSESSMENT PROCESS?YES ADVANCE DIRECTIVE ADVANCE DIRECTIVE DISCUSSED WITH PATIENT:YES PT DOES NOT HAVE ANY ADVANCED DIREDCTIVES AND SHE DECLINES INFORMATION ON HCP AT THIS TIME. REVIEWED WITH PT 06/23/18 1154 BVREVIEWED WITH PATIENT 07/07/18 1158 JS11/05/18 REVIEWED WITH PT. AD. HOSPITALIZATION/MAJOR DIAGNOSTIC PROCEDURE SURGERY RELATED [facility] ([facility]) 05/2012 ADMITTED TO [facility] 12/2015 [facility] 10/2015 [facility] 2 DAY HOSPITAL STAY DUE TO NICKED BOWEL 12/19/2017 PNEUMONIA 07/2018 REVIEW OF SYSTEMS REVIEWED BY: PROVIDER: . CONSTITUTIONAL: ANY CHANGE IN YOUR MEDICAL CONDITION? NO . CHILLS NO . FEVER NO . INFECTION: DO YOU HAVE NEW INFECTIONS? NO . DO YOU HAVE HISTORY OF MRSA? NO . MUSCULOSKELETAL: ANY NEW PATTERNS OF PAIN OR NUMBNESS? YES, PAIN IN RIGHT LEG INTO CALF . GASTROENTEROLOGY: ANY NEW CHANGE IN BOWEL CONTROL? YES, PT FEELS IT IS DIET RELATED . GENITOURINARY: ANY NEW CHANGE IN BLADDER CONTROL? YES, PT DOES NOT FEEL IT IS RELATED TO SPINE ISSUES . IS THERE A CHANCE YOU COULD BE ? NO . HEMATOLOGY/LYMPH: DO YOU TAKE ANY BLOOD THINNERS? (FOR EXAMPLE- COUMADIN, PLAVIX, AGGRENOX, PLATEL, PRADAXA, OR XARELTO) NO . WHEN WAS YOUR LAST DOSE? DATE: TIME: . NEUROLOGY: HAVE YOU FALLEN IN THE PAST 12 MONTHS? YES, PT STATES [place] HOME, DID NOT REPORT TO ED, NO INJURY FROM FALL. . ANY NEW EXTREMITY NUMBNESS OR WEAKNESS? NO . CARDIOLOGY: DO YOU HAVE A PACEMAKER OR DEFIBRILLATOR? NO . RESPIRATORY: HAVE YOU BEEN SICK IN THE PAST WEEK? NO . FEVER NO . FLU LIKE SYMPTOMS? NO . COUGH NO . INTEGUMENTARY: DO YOU HAVE ANY RASHES OR OPEN SORES? NO . ALLERGIC/IMMUNO: ARE YOU ALLERGIC TO IV DYE? NO . ANY NEW ALLERGIES? NO . PSYCHIATRIC: DO YOU HAVE THOUGHTS OF HURTING YOURSELF OR SOMEONE ELSE? NO . ARE YOU ABUSED, NEGLECTED, OR IN AN UNSAFE ENVIRONMENT? NO . ENDOCRINOLOGY: ARE YOU DIABETIC? NO . OTHER: DO YOU NEED ANY PRESCRIPTIONS? NO . IF YES, PLEASE LIST: ____ . ANY NEW PROBLEMS WITH YOUR MEDICATIONS? NO . WHEN DID YOU LAST EAT? ____6 PM LAST NIGHT . WHEN DID YOU LAST DRINK? ____5 AM THIS MORNINGING . WHAT DID YOU LAST DRINK? ____WATER . NAME OF PERSON DRIVING YOU HOME? ____[employer] . DO YOU HAVE ANY OTHER QUESTIONS OR CONCERNS NO . VITAL SIGNS WT 211 LBS, HT 67", BMI 33.04 INDEX, BP 124/75 MM HG, HR 90 /MIN, RR 18 /MIN, TEMP 97.5 F, OXYGEN SAT % 98%, SAFE IN ENV? (Y/N) Y, NA INITIALS [place] 09:48, REVIEWED BY: KG. ASSESSMENTS SACROILIITIS, NOT ELSEWHERE CLASSIFIED - M46.1 (PRIMARY) TREATMENT OTHERS START HYDROCODONE-ACETAMINOPHEN TABLET, 5-325 MG, 1 TABLET NEEDED, ORALLY FOR PAIN, EVERY 12 HRS MDD2, 30 DAY(S), 45, REFILLS 0 PROCEDURES PN SI PRE PROCEDURE DIAGNOSIS SACROILIITIS, SACROILIAC JOINT DYSFUNCTION POST PROCEDURE DIAGNOSIS SACROILIITIS, SACROILIAC JOINT DYSFUNCTION PROCEDURE BILATERAL SACROILIAC JOINT BLOCK SURGEON DR. HARRISON ZEPEDA DEPUTY CHIEF SHERIFF NONE ANESTHESIA LOCAL PRE PROCEDURE NOTE PATIENT WITH HISTORY OF CHRONIC LOW BACK PAIN. I EVALUATED THE PATIENT AND REVIEWED THE CHART. I WENT OVER THE RISKS, ALTERNATIVES, AND BENEFITS ASSOCIATED WITH THIS PROCEDURE. THE PATIENT WOULD LIKE TO PROCEED AND GAVE CONSENT TO PERFORM THE PROCEDURE. THE PATIENT DENIES UNEXPLAINABLE WEIGHT LOSS, FEVER, CHILLS, OR NEW CHANGES IN URINARY OR BOWEL CONTROL DESCRIPTION OF PROCEDURE THE PATIENT WAS BROUGHT TO THE PROCEDURE ROOM AND PLACED IN THE PRONE POSITION. THE LUMBOSACRAL AREA WAS CLEANED WITH CHLORAPREP SOLUTION AND DRAPED ASEPTICALLY. THE PROCEDURE WAS DONE UNDER STERILE CONDITIONS. I CHECKED LATERALITY AND THE LEVEL WHERE THE PROCEDURE WAS GOING TO BE PERFORMED WITH THE PATIENT AND THE SUPPORTING STAFF AT THE MOMENT OF THE TIME OUT IN THE PROCEDURE ROOM. UNDER FLUOROSCOPIC GUIDANCE, TARGET POINT WAS SELECTED AT THE LOWER BORDER OF THE RIGHT AND LEFT SACROILIAC JOINT. TARGET POINT WAS SELECTED AFTER MEDIAL ROTATION AND TILT OF THE MAGNIFIER OF THE C-ARM. LIDOCAINE WAS USED TO NUMB THE SKIN AND SUBCUTANEOUS TISSUE BELOW IT. A SPINAL NEEDLE, 22-GAUGE, WAS ADVANCED UNDER FLUOROSCOPIC GUIDANCE AND FOLLOWING PATIENT FEEDBACK UNTIL THE TARGET AREA WAS TOUCHED. THE POSITION OF THE NEEDLE WAS VERIFIED WITH AP AND LATERAL VIEWS. AFTER PROPER POSITION OF THE NEEDLE WAS ACHIEVED, ISOVUE M DYE 30%, 0.25 ML, WAS INJECTED SHOWING SPREAD OF THE DYE. THEN, A SOLUTION OF 20 MG OF KENALOG WAS INJECTED IN RIGHT AND LEFT JOINT WITH 3 ML OF BUPIVACAINE 0.125%. THERE WAS NO EVIDENCE OF BLOOD, PARESTHESIA OR CEREBROSPINAL FLUID DURING THE PROCEDURE. THE PATIENT WAS SENT TO THE RECOVERY ROOM. THE PATIENT WAS MOVING THE EXTREMITIES AND DOING WELL. THERE WAS NO COMPLICATION DURING THE PROCEDURE. FLUOROSCOPY TIME WAS 25 SECONDS POST PROCEDURE NOTE THE PATIENT WILL BE SEEN IN A FOLLOW UP IN THE NEXT FEW WEEKS. INSTRUCTIONS WERE GIVEN, QUESTIONS WERE ANSWERED, AND THE PATIENT EXPRESSED UNDERSTANDING AND AGREED WITH THE PLAN. I, MARTA VILLELA, DOCUMENTED THE ABOVE INFORMATION ACTING A SCRIBE FOR DR. ZEPEDA. I HAVE REVIEWED THE ABOVE DOCUMENT, WRITTEN BY MARTA NUÑEZ AND I VERIFY THAT IT IS ACCURATE. DIAGNOSTIC IMAGING [facility] FLUORO GUIDANCE (PAIN)[id number] PROCEDURE CODES 6045F RADXPS IN END [id number] PXD [id number] INJECT SACROILIAC JOINT, MODIFIERS: 50 DISPOSITION & COMMUNICATION FOLLOW UP 3 WEEKS ELECTRONICALLY SIGNED BY HARRISON ZEPEDA MD, ON 12/02/2018 AT 06:38 AM EST DISCLAIMER : THIS IS A VISIT SUMMARY EXTRACTED FROM THE [employer] CHART. IT IS NOT A COPY OF THE [employer] PROGRESS NOTE. MTDD
== END ==
LOC: M PAIN 10:00
PROVIDERS: ATTEND Anesthesiology
DX: G89.29 Other chronic pain (principal); M46.1 Sacroiliitis, not elsewhere classified; M53.88 Other specified dorsopathies, sacral and sacrococcygeal region; F31.9 Bipolar disorder, unspecified; F41.9 Anxiety disorder, unspecified; F10.10 Alcohol abuse, uncomplicated; G43.909 Migraine, unspecified, not intractable, without status migrainosus; I73.00 Raynaud's syndrome without gangrene; D83.9 Common variable immunodeficiency, unspecified; J45.909 Unspecified asthma, uncomplicated; G47.30 Sleep apnea, unspecified; F17.210 Nicotine dependence, cigarettes, uncomplicated; Z79.899 Other long term (current) drug therapy; Z88.5 Allergy status to narcotic agent; Z88.8 Allergy status to other drugs, medicaments and biological substances; Z91.040 Latex allergy status; Z98.84 Bariatric surgery status; Z86.69 Personal history of other diseases of the nervous system and sense organs
CPT/HCPCS: 27096; J3301; Q9967

== ENCOUNTER → 2018-11-17 | Outpatient (CLI) | payer OTHER ==
[~2018-11-17] MED LIST changes: -BUPIVACAINE HCL 0.25% 30 ML VIAL As Ordered ONE; -ISOVUE-M 300 61% 15ML VIAL (Q9967) As Ordered ONE; -LIDOCAINE 1% SDV INJ 30 ML VIAL As Ordered ONE; -TRIAMCINOLONE ACETONIDE SUSP 40 MG/ML VIAL (J3301) As Ordered ONE; -diazePAM 5 MG TAB As Ordered ONE; -diphenhydrAMINE 25 MG CAP As Ordered ONE; -oxyCODONE 5MG TAB As Ordered ONE
[2018-11-17 14:01] LABS: HEMATOCRIT 39.4 % (36.0-47.0); HEMOGLOBIN 12.8 g/dl (12.0-15.5); MEAN CORPUSCULAR HEMOGLOBIN 30.3 pg (27.0-33.0); MEAN CORPUSCULAR HGB CONC 32.5 g/dl (32.0-36.5); MEAN CORPUSCULAR VOLUME 93.4 fl (80.0-96.0); PLATELET COUNT, AUTOMATED 170 10^3/uL (150-450); RED BLOOD COUNT 4.22 10^6/uL (4.00-5.40); WHITE BLOOD COUNT 5.2 10^3/uL (4.0-10.0)
[2018-11-17 14:34] LABS: ALBUMIN 3.9 GM/DL (3.2-5.2); ALT/SGPT 24 U/L (12-78); BILIRUBIN,TOTAL 0.2 MG/DL (0.2-1.0); BLOOD UREA NITROGEN 7 MG/DL (7-18); CALCIUM LEVEL 9.3 MG/DL (8.5-10.1); CARBON DIOXIDE LEVEL 29 MEQ/L (21-32); CHLORIDE LEVEL 102 MEQ/L (98-107); CREATININE FOR GFR 0.77 MG/DL (0.55-1.30); FREE T3 2.8 PG/ML (2.2-4.0); FREE T4 0.75 NG/DL (0.76-1.46); GLOMERULAR FILTRATION RATE > 60.0 (>60); GLUCOSE, FASTING 82 MG/DL (70-100); IRON (FE) 61 UG/DL (50-170); POTASSIUM SERUM 4.2 MEQ/L (3.5-5.1); SODIUM LEVEL 137 MEQ/L (136-145); THYROXINE (T4) 6.9 UG/DL (4.5-12.0); TOTAL 25(OH) VITAMIN D 35.6 NG/ML (30.0-100.0); TOTAL PROTEIN 7.4 GM/DL (6.4-8.2); TOTAL T3 103.1 NG/DL (60.0-181.0)
[2018-11-17 14:35] LABS: ETHYL ALCOHOL (ETHANOL) < 0.003 % (0.000-0.010); VITAMIN B12 LEVEL 535 PG/ML (247-911)
== END ==
LOC: M LAB 13:09
PROVIDERS: ATTEND Family Medicine
DX: F10.10 Alcohol abuse, uncomplicated (principal); Z79.899 Other long term (current) drug therapy
CPT/HCPCS: 36415; 80053; 82306; 82607; 83540; 84439; 84481; 84600; 85027; G0480

== ENCOUNTER → 2018-12-07 | Outpatient (CLI) | payer OTHER ==
--- NOTE | 2018-12-20 00:51 | ECWPNPC ---
PATIENT NAME: ADELA ALMONTE : 1980 GENDER: FEMALE VISIT DATE: 12/07/2018 DISCHARGE DATE: 12/07/18 1341 VISIT LOCKED DATE TIME: PHYSICIAN: HARRISON ZEPEDA MD RESOURCE: HARRISON ZEPEDA MD REASON FOR APPOINTMENT 1. POST BOTOX HISTORY OF PRESENT ILLNESS HISTORY OF PRESENT ILLNESS: PAIN THE PATIENT DESCRIBES THE PAIN... 38 YEAR OLD FEMALE PATIENT WITH A HISTORY OF CHRONIC MIGRAINES AND LOW BACK PAIN. THE PATIENT DESCRIBES THE BACK PAIN ACHING, BURNING, SORE, TENDER, SHARP, STABBING, SHOOTING, AND CONTINUOUS WITH A PAIN SCORE OF 7/10. THE PATIENT WAS HERE FOR BOTOX ON 11/02/2018 AND REPORTS THAT IT HELPED REDUCE HER MIGRAINES TO 5 PER MONTH. THE PATIENT SAYS THAT THE PAIN IN HER RIGHT LOW BACK AREA IS CURRENTLY THE WORST. THE PATIENT SAYS THAT RADIOFREQUENCY HAS HELPED HER LOW BACK PAIN IN THE PAST. PATIENT DENIES UNEXPLAINABLE WEIGHT LOSS, FEVER, CHILLS, NEW CHANGES ON HER URINARY OR BOWEL CONTROL. FALL RISK SCREENING: SCREENING : NO FALLS IN THE PAST YEAR. CURRENT MEDICATIONS TAKING IMITREX 4 MG/0.5ML SOLUTION 1 INJECTION NEEDED AT THE ONSET OF A MIGRAINE SUBCUTANEOUS REPEAT TIMES ONE IF NOT EFFECTIVE (DR JC) TAKING VRAYLAR 3 MG CAPSULE 1 CAPSULE ORALLY ONCE A DAY TAKING CUVITRU 4 GM/20ML SOLUTION 14 GRAMS SUBCUTANEOUS WEEKLY TAKING VYVANSE 70 MG CAPSULE ORALLY ONCE A DAY TAKING NARATRIPTAN HCL 2.5 MG TABLET 1 TABLET NEEDED ONE TIME ORALLY ONCE A DAY TAKING HYDROXYZINE HCL 25 MG TABLET 1 TAB ORALLY FOUR TIMES DAILY TAKING BUSPIRONE HCL 30 MG TABLET 1 TABLET ORALLY TWICE A DAY TAKING VITAMIN D 2000 UNIT TABLET 1 TABLET ORALLY ONCE A DAY TAKING PROTONIX 40 MG TABLET DELAYED RELEASE 1 TABLET BID ORALLY 30 DAY(S) ORALLY BID TAKING LASIX 20 MG TABLET 1 TABLET ORALLY ONCE A DAY TAKING FLUTICASONE PROPIONATE 50 MCG/ACT SUSPENSION 1 SPRAY IN EACH NOSTRIL NASALLY ONCE A DAY TAKING CLARITIN 10 MG TABLET 1 TABLET ORALLY ONCE A DAY TAKING ALBUTEROL SULFATE (2.5 MG/3ML) 0.083% NEBULIZATION SOLUTION 1 VIAL INHALATION EVERY 6 HRS PRN TAKING VENTOLIN HFA 108 (90 BASE) MCG/ACT AEROSOL SOLUTION 2 PUFFS NEEDED INHALATION EVERY 4 HRS PRN TAKING TRILEPTAL 300 MG TABLET 1 TABLET ORALLY TWICE A DAY TAKING CARAFATE 1 GM TABLET 1 TABLET AT BEDTIME ON AN EMPTY STOMACH BEFORE MEALS ORALLY FOUR TIMES DAILY TAKING MULTIVITAMIN GUMMIES ADULT - TABLET CHEWABLE 2 ORALLY DAILY TAKING PROBIOTIC - CAPSULE 2 CAPSULES ORALLY DAILY TAKING CALCIUM 600 + D 600-200 MG-UNIT TABLET 1 TABLET WITH A MEAL ORALLY ONCE A DAY TAKING TIZANIDINE HCL 4 MG TABLET 1 TABLET NEEDED ORALLY FOR SPASMS BEFORE BEDTIME MAY REPEAT IN 5HRS MDD2 TAKING MUPIROCIN CALCIUM 2 % CREAM 1 APPLICATION TO AFFECTED AREA EXTERNALLY NOSE GROIN AXILLA HEAD BID 1 WEEK/PRN TAKING LOSARTAN POTASSIUM 25 MG TABLET 1 TABLET ORALLY ONCE A DAY TAKING KETOCONAZOLE 2 % CREAM 1 APPLICATION TO AFFECTED AREA EXTERNALLY ONCE A DAY TO BOTH FEET TAKING CHANTIX 1 MG 1 TAB ORAL BID TAKING PHENERGAN 25 MG TABLET 1 TABLET ORALLY EVERY 6 HRS PRN NAUSEA TAKING NIFEDIPINE 20 MG CAPSULE 1 CAPSULE ORALLY DAILY TAKING ACETAMINOPHEN 500 MG CAPSULE 1 CAPSULES NEEDED ORALLY EVERY 6 HRS PRN TAKING IBUPROFEN 800 MG TABLET 1 TABLET WITH FOOD OR MILK NEEDED ORALLY THREE TIMES A DAY NEEDED FOR SEVERE HEADACHES TAKING LYRICA 200 MG CAPSULE 1 CAPSULE ORALLY THREE TIMES A DAY MDD=3 TAKING TIZANIDINE HCL 4 MG TABLET 1 TABLET NEEDED ORALLY Q8H PRN #50 SHOULD LAST 30 DAYS TAKING BELBUCA 75 MCG FILM 1 FILM TO THE GUM BUCALLY EVERY 12 HRS, NOTES: HASN'T TAKEN YET NOT-TAKING VITAMIN B-12 1000 MCG TABLET 1 TABLET ORALLY ONCE A DAY NOT-TAKING FERROUS SULFATE 325 (65 FE) MG TABLET 1 TABLET ORALLY EVERY OTHER DAY DISCONTINUED HYDROCODONE-ACETAMINOPHEN 5-325 MG TABLET 1 TABLET NEEDED ORALLY FOR PAIN DAILY MDD1 DISCONTINUED HYDROCODONE-ACETAMINOPHEN 5-325 MG TABLET 1 TABLET NEEDED ORALLY FOR PAIN EVERY 12 HRS MDD2 DISCONTINUED CYCLOBENZAPRINE HCL 10 MG TABLET 1 TABLET NEEDED ORALLY THREE TIMES A DAY DISCONTINUED AUGMENTIN 875-125 MG TABLET 1 TABLET ORALLY EVERY 12 HRS DISCONTINUED DIFLUCAN 150 MG TABLET 1 TABLET ORALLY EVERY 3 DAYS NEEDED DISCONTINUED VALIUM 5 MG TABLET 1 TABLET NEEDED ORALLY ONCE A DAY NEEDED PRIOR TO DENTAL APPOINTMENT MEDICATION LIST REVIEWED AND RECONCILED WITH THE PATIENT PAST MEDICAL HISTORY SURGICAL MENOPAUSE S/P ELIA & BSO 2009 CHRONIC NECK/MID/LOW BACK PAIN PEPTIC ULCER DISEASE, S/P GASTRIC BYPASS - ON PROTONIX AND CARAFATE BY DR. ANGELA BIPOLAR, ANXIETY, DEPRESSION - FOLLWS WITH DR. OTERO ALCOHOLISM MIGRAINE HEADACHES TOBACCO USE ADD CHRONIC RHINITIS/SINUSITIS RAYNAUD'S SYNDROME COMMON VARIABLE IMMUNO DEFICIENCY DISEASE ASTHMA HEART MURMUR - ECHO 10/2017 BORDERLINE LVH, MILD LAE, SUBTLE AV SCLEROSIS, AORTIC SCLEROSIS, MILD AR, MILD MR SLEEP APNEA WITH BIPAP S/P GASTRIC BYPASS FAINTING SPELLS ALLERGIES MORPHINE: , DIFF. BREATHING: ALLERGY LATEX: HIVES: ALLERGY DILAUDID: HIVES, DIFF. BREATHING: ALLERGY REGLAN: HIVES: ALLERGY LAMICTAL: HIVES: ALLERGY DEPAKOTE: CONFUSION: CONTRAINDICATION RISPERDAL: SUICIDAL IDEATION: ALLERGY KETOROLAC TROMETHAMINE: ANAPHYLAXIS: ALLERGY MUSCLE RELAXERS: ALTERED MENTAL STATUS: SIDE EFFECTS GASTROGRAFIN: HIVES: ALLERGY SURGICAL HISTORY LUMBAR LAMINECTOMY [place] 02/11 BACK SURGERY 1997 LAPAROTOMY X 4...CARTHAGE....DR. CRISTOBAL CHOLECYSTECTOMY 07/13 ELIA W/ AGUDELO, APPENDECTOMY - FOR ENDOMETRIOSIS 12/13 GASTRIC BYPASS (DR. CARTAGENA, [facility]) 01/2012 LAPAROSCOPY AND REMOVAL OF ADHESIONS (DR. BARRERA) 12/2012 CHEST TUBE ENDOSCOPY/COLONOSCOPY BLOOD TRANSFUSION BLADDER REPAIR 10/2016 LAPROSCOPC SURGERY FOR ENDOMETRIOSIS / LYSIS OF ADHESIONS AND SCAR TISSUE (BOWEL NICKED IN OR). 12/19/17 EGD - ESOPHAGEAL PLAQUE - BIOPSY RESULTS NOT SENT TO US (DR. MILLER) 05/2018 REMOVAL CYSTS IN BILATERAL EARS REMOVAL OF NEEDLE FROM RIGHT FOOT FAMILY HISTORY FATHER: ALIVE, DIAGNOSED WITH STROKE, CANCER MOTHER: ALIVE, DIAGNOSED WITH DIABETES, HYPERTENSION, HEART DISEASE FATHER SKIN CANCERSISTER WITH HOSHIMOTO'S. SOCIAL HISTORY GENERAL: TOBACCO USE ARE YOU A:CURRENT SMOKER ARE YOU INTERESTED IN QUITTING?READY TO QUIT ON DAY 7 OF CHANTIX CURRENTLY, DECREASED AMOUNT A CIGARETTES. COUNSELED THE PATIENT ON TOBACCO USE, CESSATION [id number]/04/2019 HOW MANY CIGARETTES A DAY DO YOU SMOKE?6-10 HOW SOON AFTER YOU WAKE UP DO YOU SMOKE YOUR FIRST CIGARETTE?AFTER 60 MIN HOW OFTEN DO YOU SMOKE CIGARETTES?EVERY DAY PATIENT COUNSELED ON THE DANGERS OF TOBACCO USE AND URGED TO QUIT:12/07/2018 LATEX QUESTIONNAIRE LATEX ALLERGY : HAVE YOU EVER DEVELOPED ANY TYPE OF REACTION AFTER HANDLING LATEX PRODUCTS SUCH RUBBER GLOVES, CONDOMS, DIAPHRAGMS, BALLOONS, SOCKS, OR UNDERWEAR?YES - PLEASE INDICATE :RUBBER GLOVES, CONDOMS, UNDERWEAR, OTHER (DOCUMENT IN NOTES) BRAS LATEX ALLERGY : HAVE YOU EVER DEVELOPED ANY TYPE OF REACTION DURING OR AFTER DENTAL APPOINTMENT, VAGINAL/RECTAL EXAMINATION, SURGICAL PROCEDURE, OR ANY OTHER EXPOSURE?YES - PLEASE INDICATE :VAGINAL EXAM LATEX RISK : HAVE YOU EVER HAD ANY DIFFICULTY BREATHING OR HIVES AFTER EATING OR HANDLING ANY FRUITS, OR VEGETABLES; SUCH KIWI, BANANAS, STONE FRUITS, OR CHESTNUTSNO LATEX RISK : DO YOU HAVE A PREVIOUS PERSONAL HISTORY OF MORE THAN NINE SURGERIES, SPINA BIFIDA, OR REPEATED CATHERTIZATIONS? YES - PLEASE INDICATE : > 9 SURGERIES LATEX RISK : ARE YOU FREQUENTLY EXPOSED TO LATEX PRODUCTS IN YOUR OCCUPATION?NO DATE ASKED : 12/07/2018 LUNG CANCER SCREENING SMOKING STATUS:CURRENT SMOKER BMI CARE GOAL FOLLOW-UP ABOVE NORMAL BMI FOLLOW-UPDIETARY MANAGEMENT EDUCATION, GUIDANCE, AND COUNSELING, DIETARY NEEDS EDUCATION, EXERCISE PROMOTION: STRENGTH TRAINING ALCOHOL SCREENING DID YOU HAVE A DRINK CONTAINING ALCOHOL IN THE PAST YEAR?NO POINTS0 INTERPRETATIONNEGATIVE RECREATIONAL DRUG USE DRUG USE?NO CAFFEINE CAFFEINE USE?YES 2-3 CUPS COFFEE & ICED TEA THROUGH THE DAY. SEXUAL HX HAD SEX IN THE LAST 12 MONTHS (VAGINAL, ORAL, OR ANAL)?NO LMP:2009 HAVE YOU EVER HAD AN STD?NO HIV / HEP-C SCREENING HIV TEST OFFERED TO PATIENT:YES DATE OFFERED:03/13/2017 TEST ACCEPTED:NO HEP-C TEST OFFERED TO PATIENT:NO REASON:PATIENT DECLINED Z[employer]OASTRIAN [id number] HOLINESS LANGUAGE LANGUAGES SPOKEN:ICELANDIC EDUCATION LEVEL OF EDUCATION:NOT FINISHED COLLEGE LEARNING BARRIERS / SPECIAL NEEDS CHANGE FROM LAST VISIT?NO BARRIERS TO LEARNING?NO HEARING IMPAIRED?NO VISION IMPAIRED?NO COGNITIVELY IMPAIRED?NO READINESS TO LEARN?YES LEARNING PREFERENCES?NO LEARNING CAPABILITIES PRESENT?YES EMOTIONAL BARRIERS?NO SPECIAL DEVICES?NO SURGICAL SCRUB TECHNOLOGIST NEEDED?NO DOMESTIC VIOLENCE DO YOU FEEL SAFE IN YOUR ENVIRONMENT?YES OCCUPATION: UNEMPLOYED. DIET: REGULAR. EXERCISE: NO REGULAR EXERCISE. MARITAL STATUS: SINGLE. PAIN CLINIC PFS, CLERGY, PUBLIC HEALTH REFERRALS PFS REFERRAL NEEDED?NO CLERGY REFERRAL NEEDED?NO PUBLIC HEALTH REFERRAL NEEDED?NO WAS THE PROVIDER NOTIFIED OF ANY PERTINENT INFO? N/A HAS THE PATIENT BEEN EDUCATED REGARDING HIS/HER PLAN OF CARE?YES HAS THE PATIENT BEEN EDUCATED REGARDING PAIN, THE RISK FOR PAIN, THE IMPORTANCE OF EFFECTIVE PAIN MANAGEMENT, AND THE PAIN ASSESSMENT PROCESS?YES ADVANCE DIRECTIVE ADVANCE DIRECTIVE DISCUSSED WITH PATIENT:YES 12/07/18 PT. DOES NOT HAVE ANY ADVANCED DIREDCTIVES AND SHE DECLINES INFORMATION ON HCP AT THIS TIME. AD REVIEWED WITH PT 06/23/18 1154 BVREVIEWED WITH PATIENT 07/07/18 1158 JS11/05/18 REVIEWED WITH PT. AD12/07/18 REVIEWED WITH PT. AD. HOSPITALIZATION/MAJOR DIAGNOSTIC PROCEDURE SURGERY RELATED [facility] ([facility]) 05/2012 ADMITTED TO [facility] 12/2015 [facility] 10/2015 [facility] 2 DAY HOSPITAL STAY DUE TO NICKED BOWEL 12/19/2017 PNEUMONIA 07/2018 REVIEW OF SYSTEMS REVIEWED BY: PROVIDER: HARRISON ZEPEDA MD . CONSTITUTIONAL: ANY CHANGE IN YOUR MEDICAL CONDITION? NO . CHILLS NO . FEVER NO . INFECTION: DO YOU HAVE NEW INFECTIONS? YES, STATES SHE IS STARTING TO GET SICK AGAIN-TIRED ALL THE TIME, SINUS PRESSURE AND CONGESTION, CHEST HEAVINESS-STARTED APPROX. 1 WEEK AGO . DO YOU HAVE HISTORY OF MRSA? YES . MUSCULOSKELETAL: ANY NEW PATTERNS OF PAIN OR NUMBNESS? NO . GASTROENTEROLOGY: ANY NEW CHANGE IN BOWEL CONTROL? NO . GENITOURINARY: ANY NEW CHANGE IN BLADDER CONTROL? NO . IS THERE A CHANCE YOU COULD BE ? NO . HEMATOLOGY/LYMPH: DO YOU TAKE ANY BLOOD THINNERS? (FOR EXAMPLE- COUMADIN, PLAVIX, AGGRENOX, PLATEL, PRADAXA, OR XARELTO) NO . WHEN WAS YOUR LAST DOSE? DATE: TIME: . NEUROLOGY: HAVE YOU FALLEN IN THE PAST 12 MONTHS? YES, STATES SHE FALLS ALL THE TIME-HER LEGS JUST GIVE OUT. THE LAST TIME WAS 12/05/18-NO INJURY . ANY NEW EXTREMITY NUMBNESS OR WEAKNESS? NO . CARDIOLOGY: DO YOU HAVE A PACEMAKER OR DEFIBRILLATOR? NO . RESPIRATORY: HAVE YOU BEEN SICK IN THE PAST WEEK? NO . FEVER NO . FLU LIKE SYMPTOMS? NO . COUGH NO . INTEGUMENTARY: DO YOU HAVE ANY RASHES OR OPEN SORES? NO . ALLERGIC/IMMUNO: ARE YOU ALLERGIC TO IV DYE? NO . ANY NEW ALLERGIES? NO . PSYCHIATRIC: DO YOU HAVE THOUGHTS OF HURTING YOURSELF OR SOMEONE ELSE? NO . ARE YOU ABUSED, NEGLECTED, OR IN AN UNSAFE ENVIRONMENT? NO . ENDOCRINOLOGY: ARE YOU DIABETIC? NO . OTHER: DO YOU NEED ANY PRESCRIPTIONS? YES . IF YES, PLEASE LIST: BELBUCA . ANY NEW PROBLEMS WITH YOUR MEDICATIONS? NO . WHEN DID YOU LAST EAT? ____ . WHEN DID YOU LAST DRINK? ____ . WHAT DID YOU LAST DRINK? ____ . NAME OF PERSON DRIVING YOU HOME? ____ . DO YOU HAVE ANY OTHER QUESTIONS OR CONCERNS NO . VITAL SIGNS WT 211 LBS, HT 67", BMI 33.04 INDEX, BP 130/69 MM HG, HR 104 /MIN, RR 18 /MIN, TEMP 97.2 F, OXYGEN SAT % 98%, SAFE IN ENV? (Y/N) Y, NA INITIALS AW 1137, REVIEWED BY: AD. EXAMINATION GENERAL EXAMINATION: PATIENT IS ALERT O X 3 AND COOPERATIVE. TENDERNESS IN THE RIGHT LOW BACK AREA. PAIN INCREASES OVER THE LUMBAR FACET JOINTS WITH EXTENSION AND LATERAL ROTATION OF THE BACK. MRI OF THE LUMBAR SPINE DONE ON 09/04/2016 SHOWS FACET ARTHROPATHY CHANGES AT MULTIPLE LEVELS AND POST LAMINECTOMY CHANGES. ASSESSMENTS SPONDYLOSIS OF LUMBAR REGION WITHOUT MYELOPATHY OR RADICULOPATHY - M47.816 (PRIMARY) TREATMENT SPONDYLOSIS OF LUMBAR REGION WITHOUT MYELOPATHY OR RADICULOPATHY CLINICAL NOTES: WE DISCUSSED SEVERAL ISSUES WITH MRS. ALMONTE'S PAIN MANAGEMENT CASE. DUE TO THE LUMBAR SPONDYLOSIS AND THE PATIENT HAVING GOOD PAIN RELIEF FROM RADIOFREQUENCY IN THE PAST, I WOULD LIKE TO MOVE FORWARD WITH A SECOND RIGHT L4-L5, L5-S1 DIAGNOSTIC LUMBAR FACET BLOCK AT THIS TIME. WE DISCUSSED THE BENEFITS, RISKS, AND ALTERNATIVES OF THE PROCEDURE AND THE PATIENT WOULD LIKE TO PROCEED. THE PATIENT WILL FOLLOW UP 2 WEEKS AFTER THE PROCEDURE. THE PATIENT WILL CONTINUE WITH THE SAME MEDICATION REGIMENT. ISTOP _[id number] WAS REVIEWED. THE PATIENT BROUGHT HER MEDICATIONS TO TODAY'S VISIT IN THE ORIGINAL BOTTLES. URINE TOXICOLOGY DONE ON 10/20/2018 SHOWS CONCURRENT RESULTS. INSTRUCTIONS WERE GIVEN, QUESTIONS WERE ANSWERED, PATIENT REPORTS UNDERSTANDING AND AGREES WITH THE PLAN. I, MARTA VILLELA, DOCUMENTED THE ABOVE INFORMATION ACTING A SCRIBE FOR DR. ZEPEDA. I HAVE REVIEWED THE ABOVE DOCUMENT, WRITTEN BY MARTA KAISERIBKarissa AND I VERIFY THAT IT IS ACCURATE. OTHERS REFILL BELBUCA FILM, 75 MCG, 1 FILM TO THE GUM, BUCALLY, EVERY 12 HRS, 30 DAY(S), 60, REFILLS 0, NOTES: HASN'T TAKEN YET REFILL TIZANIDINE HCL TABLET, 4 MG, 1 TABLET NEEDED, ORALLY FOR SPASMS AND PAIN, Q8H PRN MDD3, 30 DAY(S), 85, REFILLS 1 PROCEDURE CODES FA211 ESTABILISHED PATIENT [facility] FACILITY CHARGE G8427 CURRENT MEDS W/DOSAGES DOCUMENTED G8730 PAIN ASSESS POS TOOL F/U PLAN DOC DISPOSITION & COMMUNICATION FOLLOW UP 4 WEEKS ELECTRONICALLY SIGNED BY HARRISON ZEPEDA MD, ON 12/19/2018 AT 07:14 PM EDT DISCLAIMER : THIS IS A VISIT SUMMARY EXTRACTED FROM THE [facility] CHART. IT IS NOT A COPY OF THE [employer] [facility] PROGRESS NOTE. MTDD
== END ==
LOC: M PAIN 11:30
PROVIDERS: ATTEND Anesthesiology
DX: M47.816 Spondylosis without myelopathy or radiculopathy, lumbar region (principal); G89.29 Other chronic pain; G43.709 Chronic migraine without aura, not intractable, without status migrainosus; I73.00 Raynaud's syndrome without gangrene; J45.909 Unspecified asthma, uncomplicated; D83.9 Common variable immunodeficiency, unspecified; G47.30 Sleep apnea, unspecified; F17.210 Nicotine dependence, cigarettes, uncomplicated; Z79.899 Other long term (current) drug therapy; Z88.5 Allergy status to narcotic agent; Z88.8 Allergy status to other drugs, medicaments and biological substances; Z91.040 Latex allergy status; Z91.81 History of falling; Z86.69 Personal history of other diseases of the nervous system and sense organs; Z86.59 Personal history of other mental and behavioral disorders; Z98.84 Bariatric surgery status

== ENCOUNTER → 2018-12-22 | Outpatient (CLI) | payer OTHER ==
[2018-12-22 11:56] LABS: BASO # 0.1 10^3/uL (0.0-0.2); BASO % 0.9 % (0.0-1.0); EOS # 0.1 10^3/uL (0.0-0.50); HEMATOCRIT 41.4 % (36.0-47.0); HEMOGLOBIN 13.4 g/dl (12.0-15.5); LYMPH # 1.8 10^3/uL (1.5-4.5); LYMPH % 30.5 % (24.0-44.0); MEAN CORPUSCULAR HEMOGLOBIN 29.9 pg (27.0-33.0); MEAN CORPUSCULAR HGB CONC 32.4 g/dl (32.0-36.5); MEAN CORPUSCULAR VOLUME 92.4 fl (80.0-96.0); MONO # 0.3 10^3/uL (0.0-0.8); MONO % 5.3 % (0.0-5.0); NEUTROPHILS # 3.6 10^3/uL (1.8-7.7); PLATELET COUNT, AUTOMATED 176 10^3/uL (150-450); RED BLOOD COUNT 4.48 10^6/uL (4.00-5.40); WHITE BLOOD COUNT 5.8 10^3/uL (4.0-10.0)
[2018-12-22 14:25] LABS: ALBUMIN 3.8 GM/DL (3.2-5.2); ALT/SGPT 28 U/L (12-78); BILIRUBIN,TOTAL 0.3 MG/DL (0.2-1.0); BLOOD UREA NITROGEN 10 MG/DL (7-18); CALCIUM LEVEL 9.3 MG/DL (8.5-10.1); CARBON DIOXIDE LEVEL 32 MEQ/L (21-32); CHLORIDE LEVEL 101 MEQ/L (98-107); CREATININE FOR GFR 0.72 MG/DL (0.55-1.30); GLOMERULAR FILTRATION RATE > 60.0 (>60); GLUCOSE, FASTING 81 MG/DL (70-100); IMMUNOGLOBULIN G 1230 MG/DL (681-1648); IMMUNOGLOBULIN M 69.5 MG/DL (40-230); POTASSIUM SERUM 4.2 MEQ/L (3.5-5.1); SODIUM LEVEL 136 MEQ/L (136-145); TOTAL PROTEIN 7.5 GM/DL (6.4-8.2)
[2018-12-22 15:30] LABS: IMMUNOGLOBULIN A 33.1 MG/DL (70-400); IMMUNOGLOBULIN E 8.8 IU/ML (<100)
[2018-12-23 06:42] LABS: HIV 1&2 SCREEN CENTAUR NEGATIVE (NEGATIVE)
[2018-12-24 00:08] LABS: % CD8 Pos Lymph 12.9 % (12.0-35.5); %CD4 Pos Lymphs 65.6 % (30.8-58.5); ABS Lymphs 1.6 x10E3/uL (0.7-3.1); ABS Monocytes 0.3 x10E3/uL (0.1-0.9); ABS Neutophils 3.5 x10E3/uL (1.4-7.0); Abs CD4 Helper 1050 /uL (359-1519); Abs CD8 Suppres 206 /uL (109-897); CD4/CD8 Ratio 5.09 (0.92-3.72); Eosinophils 1 % (Not Estab.); HCT 41.1 % (34.0-46.6); HGB 13.1 g/dL (11.1-15.9); Immature Grans 0 % (Not Estab.); Lymphocytes 29 % (Not Estab.); MCH 29.6 pg (26.6-33.0); MCHC 31.9 g/dL (31.5-35.7); MCV 93 fL (79-97); Monocytes 5 % (Not Estab.); Neutrophils 65 % (Not Estab.); Platelets 186 x10E3/uL (150-379); RBC 4.43 x10E6/uL (3.77-5.28); RDW 14.7 % (12.3-15.4); WBC 5.4 x10E3/uL (3.4-10.8)
== END ==
LOC: M LAB 10:43
PROVIDERS: ATTEND Internal Medicine Infectious Disease
DX: J18.9 Pneumonia, unspecified organism (principal)

== ENCOUNTER → 2018-12-22 | Outpatient (REF) | payer OTHER | LOC: M LAB REF 11:49 | PROVIDERS: ATTEND Internal Medicine Infectious Disease | DX: J18.9 Pneumonia, unspecified organism (principal) ==

== ENCOUNTER → 2018-12-29 | Outpatient (CLI) | payer OTHER ==
[~2018-12-29] MED LIST changes: -/BACL20TA PO; -/LAMO10TA PO; -/METH500TA PO; -/ONDA4TA JT; -/PANT40TA OR; -/PANT40TA PO; -/PREG100CA PO; -/PROC25SU PO; -/QUET25TA PO; -BENZ1TA PO; +BENZ1TAB42 PO; +BUPIVACAINE HCL 0.25% 30 ML VIAL As Ordered ONE; +CICL6.1H3; +COMP1SUP2 PO; +ESTR1GEL TOP; +ISOVUE-M 300 61% 15ML VIAL (Q9967) As Ordered ONE; -KETO30VL PO; +LAMI1TAB7 PO; +LIDOCAINE 1% SDV INJ 30 ML VIAL As Ordered ONE; +LYRI100C PO; +METH1TAB40 PO; +ONDA-1 JT; +OXYC1TAB30 PO; -PERCTAB PO; -PROM25TA PO; +PROT1TAB2 OR; +SERO1TAB3 PO; -[UNRECOGNIZED DRUG - CODE]; +[UNRECOGNIZED DRUG - CODE] PO; +[UNRECOGNIZED DRUG - CODE] PO; -[UNRECOGNIZED DRUG - CODE] TOP; -[UNRECOGNIZED DRUG - OTHER] PO
--- NOTE | 2018-12-29 17:09 | REP ---
Partial lumbar spine series: Single view . History: Injection procedure for pain. 21 seconds of fluoroscopy time is reported. Findings: A single fluoroscopically obtained last image hold procedural spot radiograph of the lumbar spine documents needle position and contrast injection associated with injection procedure. Electronically Signed by Moshe Carmona MD 12/29/2018 05:01 P
--- NOTE | 2019-01-08 01:13 | ECWPNPC ---
PATIENT NAME: ADELA ALMONTE : 1980 GENDER: FEMALE VISIT DATE: 12/29/2018 DISCHARGE DATE: 12/29/18 1506 VISIT LOCKED DATE TIME: PHYSICIAN: HARRISON ZEPEDA MD RESOURCE: HARRISON ZEPEDA MD REASON FOR APPOINTMENT 1. RIGHT L4-L5, L5-S1 LFBD #2 HISTORY OF PRESENT ILLNESS HISTORY OF PRESENT ILLNESS: PAIN THE PATIENT DESCRIBES THE PAIN... 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 LAST FRIDAY TAKING BUSPIRONE HCL 30 MG TABLET 1 TABLET ORALLY TWICE A DAY, NOTES: 12-29-18499 TAKING VYVANSE 70 MG CAPSULE 1 CAPSULE IN THE MORNING ORALLY ONCE A DAY, NOTES: 12-29-18499 TAKING TRILEPTAL 300 MG TABLET 1 TABLET ORALLY TWICE A DAY, NOTES: 49912-29-18 TAKING BELBUCA 75 MCG FILM 1 FILM TO THE GUM BUCALLY EVERY 12 HRS, NOTES: 12-28-181699 TAKING TIZANIDINE HCL 4 MG TABLET 1 TABLET NEEDED ORALLY FOR SPASMS AND PAIN Q8H PRN MDD3, NOTES: 12-28-182299 TAKING IMITREX 4 MG/0.5ML SOLUTION 1 INJECTION NEEDED AT THE ONSET OF A MIGRAINE SUBCUTANEOUS REPEAT TIMES ONE IF NOT EFFECTIVE (DR JC), NOTES: NOT LATELY TAKING VRAYLAR 3 MG CAPSULE 1 CAPSULE ORALLY ONCE A DAY, NOTES: 12-28-182099 TAKING NARATRIPTAN HCL 2.5 MG TABLET 1 TABLET NEEDED ONE TIME ORALLY ONCE A DAY, NOTES: 12-29-18499 TAKING HYDROXYZINE HCL 25 MG TABLET 1 TAB ORALLY FOUR TIMES DAILY, NOTES: NOT LATELY TAKING PROTONIX 40 MG TABLET DELAYED RELEASE 1 TABLET BID ORALLY 30 DAY(S) ORALLY BID, NOTES: 12-29-18499 TAKING LASIX 20 MG TABLET 1 TABLET ORALLY ONCE A DAY, NOTES: 12-29-18499 TAKING FLUTICASONE PROPIONATE 50 MCG/ACT SUSPENSION 1 SPRAY IN EACH NOSTRIL NASALLY ONCE A DAY, NOTES: NOT LATELY TAKING CLARITIN 10 MG TABLET 1 TABLET ORALLY ONCE A DAY, NOTES: 12-29-18499 TAKING ALBUTEROL SULFATE (2.5 MG/3ML) 0.083% NEBULIZATION SOLUTION 1 VIAL INHALATION EVERY 6 HRS PRN, NOTES: NOT LATELY TAKING VENTOLIN HFA 108 (90 BASE) MCG/ACT AEROSOL SOLUTION 2 PUFFS NEEDED INHALATION EVERY 4 HRS PRN, NOTES: NOT LATELY TAKING LOSARTAN POTASSIUM 25 MG TABLET 1 TABLET ORALLY ONCE A DAY, NOTES: 12-29-18499 TAKING KETOCONAZOLE 2 % CREAM 1 APPLICATION TO AFFECTED AREA EXTERNALLY ONCE A DAY TO BOTH FEET, NOTES: 12-29-18599 TAKING PHENERGAN 25 MG TABLET 1 TABLET ORALLY EVERY 6 HRS PRN NAUSEA, NOTES: 12-29-18499 TAKING NIFEDIPINE 20 MG CAPSULE 1 CAPSULE ORALLY DAILY, NOTES: 12-29-18499 TAKING ACETAMINOPHEN 500 MG CAPSULE 1 CAPSULES NEEDED ORALLY EVERY 6 HRS PRN, NOTES: A COUPLE DAYS TAKING IBUPROFEN 800 MG TABLET 1 TABLET WITH FOOD OR MILK NEEDED ORALLY THREE TIMES A DAY NEEDED FOR SEVERE HEADACHES, NOTES: A COUPLE DAYS TAKING AMMONIUM LACTATE 10 % LOTION 1 APPLICATION TO AFFECTED AREA EXTERNALLY TWICE A DAY, NOTES: 12-29-18499 TAKING CHANTIX 1 MG 1 TAB ORAL BID, NOTES: 12-29-18499 NOT-TAKING ANTABUSE 500 MG TABLET 1 TABLET ORALLY ONCE A DAY NOT-TAKING BUSPIRONE HCL 30 MG TABLET 1 TABLET ORALLY TWICE A DAY NOT-TAKING VITAMIN D 2000 UNIT TABLET 1 TABLET ORALLY ONCE A DAY NOT-TAKING TRILEPTAL 300 MG TABLET 1 TABLET ORALLY TWICE A DAY NOT-TAKING CARAFATE 1 GM TABLET 1 TABLET AT BEDTIME ON AN EMPTY STOMACH BEFORE MEALS ORALLY FOUR TIMES DAILY NOT-TAKING MULTIVITAMIN GUMMIES ADULT - TABLET CHEWABLE 2 ORALLY DAILY NOT-TAKING PROBIOTIC - CAPSULE 2 CAPSULES ORALLY DAILY NOT-TAKING CALCIUM 600 + D 600-200 MG-UNIT TABLET 1 TABLET WITH A MEAL ORALLY ONCE A DAY NOT-TAKING MUPIROCIN CALCIUM 2 % CREAM 1 APPLICATION TO AFFECTED AREA EXTERNALLY NOSE GROIN AXILLA HEAD BID 1 WEEK/PRN UNKNOWN LYRICA 200 MG CAPSULE 1 CAPSULE ORALLY THREE TIMES A DAY MDD=3 MEDICATION LIST REVIEWED AND RECONCILED WITH THE PATIENT PAST MEDICAL HISTORY SURGICAL MENOPAUSE S/P ELIA & BSO 2009 CHRONIC NECK/MID/LOW BACK PAIN PEPTIC ULCER DISEASE, S/P GASTRIC BYPASS - ON PROTONIX AND CARAFATE BY DR. MILLER BIPOLAR, ANXIETY, DEPRESSION - FOLLWS WITH DR. OTERO ALCOHOLISM MIGRAINE HEADACHES TOBACCO USE ADD CHRONIC RHINITIS/SINUSITIS RAYNAUD'S SYNDROME COMMON VARIABLE IMMUNO DEFICIENCY DISEASE ASTHMA HEART MURMUR - ECHO 10/2017 BORDERLINE LVH, MILD LAE, SUBTLE AV SCLEROSIS, AORTIC SCLEROSIS, MILD AR, MILD MR SLEEP APNEA WITH BIPAP S/P GASTRIC BYPASS FAINTING SPELLS ALLERGIES MORPHINE: , DIFF. BREATHING - ALLERGY LATEX: HIVES - ALLERGY DILAUDID: HIVES, DIFF. BREATHING - ALLERGY REGLAN: HIVES - ALLERGY LAMICTAL: HIVES - ALLERGY DEPAKOTE: CONFUSION - CONTRAINDICATION RISPERDAL: SUICIDAL IDEATION - ALLERGY KETOROLAC TROMETHAMINE: ANAPHYLAXIS - ALLERGY MUSCLE RELAXERS: ALTERED MENTAL STATUS - SIDE EFFECTS GASTROGRAFIN: HIVES - ALLERGY SURGICAL HISTORY LUMBAR LAMINECTOMY SYRACUSE 02/11 BACK SURGERY 1997 LAPAROTOMY X 4...CARTHAGE....DR. CRISTOBAL CHOLECYSTECTOMY 07/13 ELIA W/ AGUDELO, APPENDECTOMY - FOR ENDOMETRIOSIS 12/13 GASTRIC BYPASS (DR. CARTAGENA, [facility]) 01/2012 LAPAROSCOPY AND REMOVAL OF ADHESIONS (DR. BARRERA) 12/2012 CHEST TUBE ENDOSCOPY/COLONOSCOPY BLOOD TRANSFUSION BLADDER REPAIR 10/2016 LAPROSCOPC SURGERY FOR ENDOMETRIOSIS / LYSIS OF ADHESIONS AND SCAR TISSUE (BOWEL NICKED IN OR). 12/19/17 EGD - ESOPHAGEAL PLAQUE - BIOPSY RESULTS NOT SENT TO US (DR. MILLER) 05/2018 REMOVAL CYSTS IN BILATERAL EARS REMOVAL OF NEEDLE FROM RIGHT FOOT FAMILY HISTORY FATHER: ALIVE, DIAGNOSED WITH STROKE, CANCER MOTHER: ALIVE, HYPERTENSION, HEART DISEASE, DIABETES FATHER SKIN CANCER\\\\NSISTER WITH HOSHIMOTO\\\\\\'S. SOCIAL HISTORY GENERAL: TOBACCO USE ARE YOU A:CURRENT SMOKER HOW OFTEN DO YOU SMOKE CIGARETTES?EVERY DAY HOW SOON AFTER YOU WAKE UP DO YOU SMOKE YOUR FIRST CIGARETTE?AFTER 60 MIN HOW MANY CIGARETTES A DAY DO YOU SMOKE?6-10 ARE YOU INTERESTED IN QUITTING?READY TO QUIT ON DAY 7 OF CHANTIX CURRENTLY, DECREASED AMOUNT A CIGARETTES. PATIENT COUNSELED ON THE DANGERS OF TOBACCO USE AND URGED TO QUIT:12/21/2018 COUNSELED THE PATIENT ON TOBACCO USE, CESSATION QCEIEWEV71/18/2019 LATEX QUESTIONNAIRE LATEX ALLERGY : HAVE YOU EVER DEVELOPED ANY TYPE OF REACTION AFTER HANDLING LATEX PRODUCTS SUCH RUBBER GLOVES, CONDOMS, DIAPHRAGMS, BALLOONS, SOCKS, OR UNDERWEAR?YES LATEX ALLERGY : HAVE YOU EVER DEVELOPED ANY TYPE OF REACTION DURING OR AFTER DENTAL APPOINTMENT, VAGINAL/RECTAL EXAMINATION, SURGICAL PROCEDURE, OR ANY OTHER EXPOSURE?YES - PLEASE INDICATE :RUBBER GLOVES, CONDOMS, UNDERWEAR, OTHER (DOCUMENT IN NOTES) BRAS - PLEASE INDICATE :VAGINAL EXAM DATE ASKED : 12/07/2018 LATEX RISK : HAVE YOU EVER HAD ANY DIFFICULTY BREATHING OR HIVES AFTER EATING OR HANDLING ANY FRUITS, OR VEGETABLES; SUCH KIWI, BANANAS, STONE FRUITS, OR CHESTNUTSNO LATEX RISK : DO YOU HAVE A PREVIOUS PERSONAL HISTORY OF MORE THAN NINE SURGERIES, SPINA BIFIDA, OR REPEATED CATHERTIZATIONS? YES - PLEASE INDICATE : > 9 SURGERIES LATEX RISK : ARE YOU FREQUENTLY EXPOSED TO LATEX PRODUCTS IN YOUR OCCUPATION?NO LUNG CANCER SCREENING SMOKING STATUS:CURRENT SMOKER BMI CARE GOAL FOLLOW-UP ABOVE NORMAL BMI FOLLOW-UPDIETARY MANAGEMENT EDUCATION, GUIDANCE, AND COUNSELING, DIETARY NEEDS EDUCATION, EXERCISE PROMOTION: STRENGTH TRAINING ALCOHOL SCREENING DID YOU HAVE A DRINK CONTAINING ALCOHOL IN THE PAST YEAR?NO POINTS0 INTERPRETATIONNEGATIVE RECREATIONAL DRUG USE DRUG USE?NO CAFFEINE CAFFEINE USE?YES 2-3 CUPS COFFEE & ICED TEA THROUGH THE DAY. SEXUAL HX HAD SEX IN THE LAST 12 MONTHS (VAGINAL, ORAL, OR ANAL)?NO LMP:2009 HAVE YOU EVER HAD AN STD?NO HIV / HEP-C SCREENING HIV TEST OFFERED TO PATIENT:YES DATE OFFERED:03/13/2017 TEST ACCEPTED:NO HEP-C TEST OFFERED TO PATIENT:NO REASON:PATIENT DECLINED MANDAEN [id number] YAZIDISM LANGUAGE LANGUAGES SPOKEN:PERSIAN EDUCATION LEVEL OF EDUCATION:NOT FINISHED COLLEGE LEARNING BARRIERS / SPECIAL NEEDS CHANGE FROM LAST VISIT?NO BARRIERS TO LEARNING?NO HEARING IMPAIRED?NO VISION IMPAIRED?NO COGNITIVELY IMPAIRED?NO READINESS TO LEARN?YES LEARNING PREFERENCES?NO LEARNING CAPABILITIES PRESENT?YES EMOTIONAL BARRIERS?NO SPECIAL DEVICES?NO DELIVERY LEAD NEEDED?NO DOMESTIC VIOLENCE DO YOU FEEL SAFE IN YOUR ENVIRONMENT?YES OCCUPATION: UNEMPLOYED. DIET: REGULAR. EXERCISE: NO REGULAR EXERCISE. MARITAL STATUS: SINGLE. PAIN CLINIC PFS, CLERGY, PUBLIC HEALTH REFERRALS PFS REFERRAL NEEDED?NO CLERGY REFERRAL NEEDED?NO PUBLIC HEALTH REFERRAL NEEDED?NO WAS THE PROVIDER NOTIFIED OF ANY PERTINENT INFO? N/A HAS THE PATIENT BEEN EDUCATED REGARDING HIS/HER PLAN OF CARE?YES HAS THE PATIENT BEEN EDUCATED REGARDING PAIN, THE RISK FOR PAIN, THE IMPORTANCE OF EFFECTIVE PAIN MANAGEMENT, AND THE PAIN ASSESSMENT PROCESS?YES ADVANCE DIRECTIVE ADVANCE DIRECTIVE DISCUSSED WITH PATIENT:YES 12/07/18 PT. DOES NOT HAVE ANY ADVANCED DIREDCTIVES AND SHE DECLINES INFORMATION ON HCP AT THIS TIME. AD REVIEWED WITH PT 06/23/18 1154 BVREVIEWED WITH PATIENT 07/07/18 1158 JS11/05/18 REVIEWED WITH PT. AD12/07/18 REVIEWED WITH PT. AD. HOSPITALIZATION/MAJOR DIAGNOSTIC PROCEDURE SURGERY RELATED [facility] ([facility] OD) 05/2012 ADMITTED TO [facility] 12/2015 [facility] 10/2015 [facility] 2 DAY HOSPITAL STAY DUE TO NICKED BOWEL 12/19/2017 PNEUMONIA 07/2018 REVIEW OF SYSTEMS REVIEWED BY: PROVIDER: . CONSTITUTIONAL: ANY CHANGE IN YOUR MEDICAL CONDITION? NO . CHILLS NO . FEVER NO . INFECTION: DO YOU HAVE NEW INFECTIONS? NO . DO YOU HAVE HISTORY OF MRSA? NO . MUSCULOSKELETAL: ANY NEW PATTERNS OF PAIN OR NUMBNESS? YES INCREASED WEAKNESS DOWN RIGHT LEG . GASTROENTEROLOGY: ANY NEW CHANGE IN BOWEL CONTROL? NO . GENITOURINARY: ANY NEW CHANGE IN BLADDER CONTROL? NO . IS THERE A CHANCE YOU COULD BE ? NO . HEMATOLOGY/LYMPH: DO YOU TAKE ANY BLOOD THINNERS? (FOR EXAMPLE- COUMADIN, PLAVIX, AGGRENOX, PLATEL, PRADAXA, OR XARELTO) NO . WHEN WAS YOUR LAST DOSE? DATE: TIME: . NEUROLOGY: HAVE YOU FALLEN IN THE PAST 12 MONTHS? YES INCREASED FALES WITH LEG GIVING OUT . ANY NEW EXTREMITY NUMBNESS OR WEAKNESS? NO . CARDIOLOGY: DO YOU HAVE A PACEMAKER OR DEFIBRILLATOR? NO . RESPIRATORY: HAVE YOU BEEN SICK IN THE PAST WEEK? NO . FEVER NO . FLU LIKE SYMPTOMS? NO . COUGH NO . INTEGUMENTARY: DO YOU HAVE ANY RASHES OR OPEN SORES? NO . ALLERGIC/IMMUNO: ARE YOU ALLERGIC TO IV DYE? NO . ANY NEW ALLERGIES? NO . PSYCHIATRIC: DO YOU HAVE THOUGHTS OF HURTING YOURSELF OR SOMEONE ELSE? NO . ARE YOU ABUSED, NEGLECTED, OR IN AN UNSAFE ENVIRONMENT? NO . ENDOCRINOLOGY: ARE YOU DIABETIC? NO . OTHER: DO YOU NEED ANY PRESCRIPTIONS? NO . IF YES, PLEASE LIST: ____ . ANY NEW PROBLEMS WITH YOUR MEDICATIONS? NO . WHEN DID YOU LAST EAT? ____12-28-18 11 PM . WHEN DID YOU LAST DRINK? ____5 AM THIS MORNING . WHAT DID YOU LAST DRINK? ____WATER . NAME OF PERSON DRIVING YOU HOME? ____[employer] . DO YOU HAVE ANY OTHER QUESTIONS OR CONCERNS NO . VITAL SIGNS WT 202 LBS, HT 67", BMI 31.63 INDEX, BP 124/71 MM HG, HR 107 /MIN, RR 18 /MIN, TEMP 96.7 F, OXYGEN SAT % 98%, SAFE IN ENV? (Y/N) YES, NA INITIALS AW 1251, REVIEWED BY: CATRINA. ASSESSMENTS SPONDYLOSIS OF LUMBAR REGION WITHOUT MYELOPATHY OR RADICULOPATHY - M47.816 (PRIMARY) SPONDYLOSIS OF LUMBOSACRAL REGION WITHOUT MYELOPATHY OR RADICULOPATHY - M47.817 TREATMENT SPONDYLOSIS OF LUMBAR REGION WITHOUT MYELOPATHY OR RADICULOPATHY SMC FACET BLOCK (PAIN)[id number] PROCEDURES PN LUMBAR FACET BLOCK DIAGNOSTIC PRE PROCEDURE DIAGNOSIS LUMBAR SPONDYLOSIS, LUMBOSACRAL SPONDYLOSIS POST PROCEDURE DIAGNOSIS LUMBAR SPONDYLOSIS, LUMBOSACRAL SPONDYLOSIS PROCEDURE RIGHT L4-L5 AND RIGHT L5-S1 FACET BLOCK DIAGNOSTIC NUMBER [address] HARRISON ZEPEDA UPSETTER HELPER NONE ANESTHESIA LOCAL PRE PROCEDURE NOTE THE PATIENT WITH HISTORY OF CHRONIC LOW BACK PAIN. I EVALUATED THE PATIENT AND REVIEWED THE CHART. I WENT OVER THE RISKS, ALTERNATIVES, AND BENEFITS ASSOCIATED WITH THIS PROCEDURE. THE PATIENT WOULD LIKE TO PROCEED AND GAVE CONSENT TO PERFORM THE PROCEDURE. AGREED WITH THE PATIENT WE ARE DOING THIS PROCEDURE TO DETERMINE IF THE PATIENT IS A CANDIDATE FOR A RADIOFREQUENCY ABLATION OF THE FACETS JOINTS. THE PATIENT DENIES UNEXPLAINABLE WEIGHT LOSS, FEVER, CHILLS, OR NEW CHANGES IN URINARY OR BOWEL CONTROL DESCRIPTION OF PROCEDURE THE PATIENT WAS BROUGHT TO THE PROCEDURE ROOM AND PLACED IN THE PRONE POSITION. THE LUMBOSACRAL AREA WAS CLEANED WITH CHLORAPREP SOLUTION AND DRAPED ASEPTICALLY. THE PROCEDURE WAS DONE UNDER STERILE CONDITIONS. I CHECKED LATERALITY AND THE LEVEL WHERE THE PROCEDURE WAS GOING TO BE PERFORMED WITH THE PATIENT AND THE SUPPORTING STAFF AT THE MOMENT OF THE TIME OUT IN THE PROCEDURE ROOM. UNDER FLUOROSCOPIC GUIDANCE, TARGETS WERE SELECTED AT THE INTERSECTION OF THE RIGHT TRANSVERSE PROCESS OF L4, L5 AND ALA OF S1 WITH ITS RESPECTIVE SUPERIOR ARTICULAR PROCESS. LIDOCAINE WAS USED TO NUMB THE SKIN AND THE SUBCUTANEOUS TISSUE BELOW IT. SPINAL NEEDLE, 22-GAUGE WAS ADVANCED UNDER FLUOROSCOPIC GUIDANCE AND FOLLOWING PATIENT FEEDBACK UNTIL THE TARGETS WERE REACHED. POSITION OF THE NEEDLES WAS VERIFIED WITH AP AND LATERAL VIEWS. AFTER PROPER POSITION OF THE NEEDLES WAS ACHIEVED, ISOVUE-M DYE 30% 0.1 ML WAS INJECTED AT EACH SITE SHOWING ADEQUATE SPREAD OF THE DYE. THEN A SOLUTION OF 0.4 ML OF BUPIVACAINE 0.25% WAS INJECTED AT EACH SITE. THERE WAS NO EVIDENCE OF BLOOD, PARESTHESIA OR CEREBROSPINAL FLUID DURING THE PROCEDURE. THE PATIENT WAS SENT TO THE RECOVERY ROOM. THE PATIENT WAS MOVING THE EXTREMITIES AND DOING WELL. THERE WAS NO COMPLICATION DURING THE PROCEDURE. FLUOROSCOPY TIME WAS 21 SECONDS POST PROCEDURE NOTE THE PATIENT WILL DOCUMENT HIS PAIN LEVEL AND RESPONSE TO THIS PROCEDURE EVERY 30 MINUTES. THE PATIENT WILL BE SEEN IN A FOLLOW UP IN THE NEXT FEW WEEKS. FURTHER DETERMINATION FOR HIS CASE WILL BE DONE AT THE NEXT VISIT. INSTRUCTIONS WERE GIVEN, QUESTIONS WERE ANSWERED, AND THE PATIENT EXPRESSED UNDERSTANDING AND AGREED WITH THE PLAN. I, MARTA VILLELA, DOCUMENTED THE ABOVE INFORMATION ACTING A SCRIBE FOR DR. ZEPEDA. I HAVE REVIEWED THE ABOVE DOCUMENT, WRITTEN BY MARTA VILLELA SCRIBKarissa AND I VERIFY THAT IT IS ACCURATE. PROCEDURE CODES 6045F RADXPS IN END [id number] PXD 10737 INJ PARAVERT F JNT L/S 1 LEV, MODIFIERS: [place] [id number] INJ PARAVERT F JNT L/S 2 LEV, MODIFIERS: RT DISPOSITION & COMMUNICATION FOLLOW UP 3 WEEKS ELECTRONICALLY SIGNED BY HARRISON ZEPEDA MD, MD ON 01/07/2019 AT 11:44 AM EDT DISCLAIMER : THIS IS A VISIT SUMMARY EXTRACTED FROM THE [employer] CHART. IT IS NOT A COPY OF THE [facility] [employer] PROGRESS NOTE. MTDD
== END ==
LOC: M PAIN 13:00
PROVIDERS: ATTEND Anesthesiology
DX: M47.816 Spondylosis without myelopathy or radiculopathy, lumbar region (principal); M47.817 Spondylosis without myelopathy or radiculopathy, lumbosacral region; F31.9 Bipolar disorder, unspecified; F41.9 Anxiety disorder, unspecified; F17.210 Nicotine dependence, cigarettes, uncomplicated; R01.1 Cardiac murmur, unspecified; G47.33 Obstructive sleep apnea (adult) (pediatric); E89.40 Asymptomatic postprocedural ovarian failure; F10.20 Alcohol dependence, uncomplicated; J32.9 Chronic sinusitis, unspecified; D83.9 Common variable immunodeficiency, unspecified; J45.909 Unspecified asthma, uncomplicated; Z90.710 Acquired absence of both cervix and uterus; Z98.84 Bariatric surgery status; Z90.49 Acquired absence of other specified parts of digestive tract; Z88.5 Allergy status to narcotic agent; Z88.8 Allergy status to other drugs, medicaments and biological substances; Z91.040 Latex allergy status
CPT/HCPCS: 64493; 64494; Q9967

== ENCOUNTER → 2019-01-05 | Outpatient (CLI) | payer OTHER ==
[~2019-01-05] MED LIST changes: -BUPIVACAINE HCL 0.25% 30 ML VIAL As Ordered ONE; -ISOVUE-M 300 61% 15ML VIAL (Q9967) As Ordered ONE; -LIDOCAINE 1% SDV INJ 30 ML VIAL As Ordered ONE
== END ==
LOC: M PAIN 13:00
PROVIDERS: ATTEND Anesthesiology
DX: M47.816 Spondylosis without myelopathy or radiculopathy, lumbar region (principal); M47.817 Spondylosis without myelopathy or radiculopathy, lumbosacral region; Z53.29 Procedure and treatment not carried out because of patient's decision for other reasons

== ENCOUNTER → 2019-01-05 | Outpatient (REF) | payer OTHER ==
[2019-01-05 15:10] LABS: CHLAMYDIA DNA AMPLIFICATION NEGATIVE (NEGATIVE); GC DNA AMPLIFICATION NEGATIVE (NEGATIVE)
== END ==
LOC: M LAB REF 13:03
PROVIDERS: ATTEND Specialist
DX: Z11.3 Encounter for screening for infections with a predominantly sexual mode of transmission (principal)

== ENCOUNTER → 2019-02-04 | Outpatient (REF) | payer OTHER ==
[2019-02-04 14:03] LABS: ALBUMIN 4.1 GM/DL (3.2-5.2); ALT/SGPT 21 U/L (12-78); BILIRUBIN,TOTAL 0.3 MG/DL (0.2-1.0); BLOOD UREA NITROGEN 10 MG/DL (7-18); CALCIUM LEVEL 9.4 MG/DL (8.5-10.1); CARBON DIOXIDE LEVEL 28 MEQ/L (21-32); CHLORIDE LEVEL 106 MEQ/L (98-107); CHOLESTEROL LEVEL 271 MG/DL (<200); CHOLESTEROL RISK RATIO 3.763 (<5); CREATININE FOR GFR 0.85 MG/DL (0.55-1.30); FREE T4 1.45 NG/DL (0.76-1.46); GLOMERULAR FILTRATION RATE > 60.0 (>60); GLUCOSE, FASTING 91 MG/DL (70-100); HDL CHOLESTEROL 72 MG/DL (>40); LDL CHOLESTEROL 174 MG/DL (<100); NON-HDL-C 199 MG/DL; POTASSIUM SERUM 4.9 MEQ/L (3.5-5.1); SODIUM LEVEL 138 MEQ/L (136-145); THYROID STIMULATING HORMONE 0.312 uIU/ML (0.358-3.740); TOTAL PROTEIN 7.6 GM/DL (6.4-8.2); TRIGLYCERIDES LEVEL 126 MG/DL (<150)
[2019-02-04 14:06] LABS: TOTAL 25(OH) VITAMIN D 27.5 NG/ML (30.0-100.0); VITAMIN B12 LEVEL 442 PG/ML
[2019-02-04 14:07] LABS: FOLATE 14.8 NG/ML
== END ==
LOC: M SFHCADAM 08:57
PROVIDERS: ATTEND Physician Assistant
DX: K21.9 Gastro-esophageal reflux disease without esophagitis (principal); Z91.89 Other specified personal risk factors, not elsewhere classified; E78.49 Other hyperlipidemia; I10 Essential (primary) hypertension; R53.82 Chronic fatigue, unspecified

== ENCOUNTER → 2019-02-22 | Outpatient (CLI) | payer OTHER ==
[2019-02-22 13:21] LABS: HEMATOCRIT 37.5 % (36.0-47.0); HEMOGLOBIN 12.3 g/dl (12.0-15.5); MEAN CORPUSCULAR HEMOGLOBIN 28.9 pg (27.0-33.0); MEAN CORPUSCULAR HGB CONC 32.8 g/dl (32.0-36.5); PLATELET COUNT, AUTOMATED 149 10^3/uL (150-450); RED BLOOD COUNT 4.26 10^6/uL (4.00-5.40); WHITE BLOOD COUNT 4.8 10^3/uL (4.0-10.0)
[2019-02-22 19:14] LABS: ALBUMIN 3.9 GM/DL (3.2-5.2); ALT/SGPT 27 U/L (12-78); BILIRUBIN,TOTAL 0.3 MG/DL (0.2-1.0); BLOOD UREA NITROGEN 10 MG/DL (7-18); CALCIUM LEVEL 9.2 MG/DL (8.5-10.1); CARBON DIOXIDE LEVEL 28 MEQ/L (21-32); CHLORIDE LEVEL 104 MEQ/L (98-107); CREATININE FOR GFR 0.86 MG/DL (0.55-1.30); ETHYL ALCOHOL (ETHANOL) < 0.003 % (0.000-0.010); GLOMERULAR FILTRATION RATE > 60.0 (>60); GLUCOSE, FASTING 75 MG/DL (70-100); IRON (FE) 49 UG/DL (50-170); PERCENT SATURATION 10.1 % (13.2-45.0); POTASSIUM SERUM 3.1 MEQ/L (3.5-5.1); SODIUM LEVEL 141 MEQ/L (136-145); THYROID STIMULATING HORMONE 0.846 uIU/ML (0.358-3.740); TOTAL 25(OH) VITAMIN D 37.2 NG/ML (30.0-100.0); TOTAL IRON BINDING CAPACITY 485 UG/DL (250-450); TOTAL PROTEIN 7.5 GM/DL (6.4-8.2); VITAMIN B12 LEVEL 508 PG/ML (247-911)
== END ==
LOC: M LAB 12:06
PROVIDERS: ATTEND Family Medicine
DX: F10.10 Alcohol abuse, uncomplicated (principal)
CPT/HCPCS: 36415; 80053; 80307; 82306; 82607; 83550; 84443; 84481; 85027; G0480

== ENCOUNTER → 2019-02-22 | Outpatient (CLI) | payer OTHER ==
--- NOTE | 2019-03-06 01:25 | ECWPNPC ---
PATIENT NAME: ADELA ALMONTE : 1980 GENDER: FEMALE VISIT DATE: 02/22/2019 DISCHARGE DATE: 02/22/19 1141 VISIT LOCKED DATE TIME: PHYSICIAN: HARRISON ZEPEDA MD RESOURCE: HARRISON ZEPEDA MD REASON FOR APPOINTMENT 1. POST PROC HISTORY OF PRESENT ILLNESS HISTORY OF PRESENT ILLNESS: PAIN THE PATIENT DESCRIBES THE PAIN... 39 YEAR OLD FEMALE PATIENT WITH A HISTORY OF CHRONIC LOW BACK PAIN. THE PATIENT DESCRIBES THE PAIN ACHING, BURNING, STABBING, SHOOTING, NUMBING, TINGLING WITH A LOSS OF SENSATION, SORE, TENDER, SHARP, AND CONTINUOUS WITH A PAIN SCORE OF 6-8/10 DEPENDING ON PHYSICAL ACTIVITY. THE PATIENT SAYS THE PAIN IS MAINLY IN HER RIGHT LOWER BACK AND THORACIC SPINE. THE PATIENT RECEIVED A RIGHT L4-L5, L5-S1 DIAGNOSTIC #2 FACET BLOCK DONE ON 12/29/2018, WHICH SHE REPORTS OFFERED GOOD PAIN RELIEF AND HER PAIN WENT DOWN FROM A 9 TO A 3 OUT OF 10 ON THE PAIN SCALE. THE PATIENT STATES HER MIGRAINES HAVE RETURNED AND IS LOOKING FOR RELIEF. PATIENT DENIES UNEXPLAINABLE WEIGHT LOSS, FEVER, CHILLS, NEW CHANGES ON HER URINARY OR BOWEL CONTROL. FALL RISK SCREENING: SCREENING :TWO OR MORE FALLS WITHOUT INJURY IN THE PAST YEAR CURRENT MEDICATIONS TAKING CUVITRU 4 GM/20ML SOLUTION 11 GRAMS SUBCUTANEOUS WEEKLY, NOTES: IMMUNE SYSTEMBOOSTER LAST FRIDAY TAKING BUSPIRONE HCL 30 MG TABLET 1 TABLET ORALLY TWICE A DAY, NOTES: 12-29-18499 TAKING VYVANSE 70 MG CAPSULE 1 CAPSULE IN THE MORNING ORALLY ONCE A DAY, NOTES: 12-29-18499 TAKING IMITREX 4 MG/0.5ML SOLUTION 1 INJECTION NEEDED AT THE ONSET OF A MIGRAINE SUBCUTANEOUS REPEAT TIMES ONE IF NOT EFFECTIVE (DR JC), NOTES: NOT LATELY TAKING VRAYLAR 3 MG CAPSULE 1 CAPSULE ORALLY ONCE A DAY, NOTES: 12-28-182099 TAKING NARATRIPTAN HCL 2.5 MG TABLET 1 TABLET NEEDED ONE TIME ORALLY ONCE A DAY, NOTES: 12-29-18499 TAKING FLUTICASONE PROPIONATE 50 MCG/ACT SUSPENSION 1 SPRAY IN EACH NOSTRIL NASALLY ONCE A DAY, NOTES: NOT LATELY TAKING CLARITIN 10 MG TABLET 1 TABLET ORALLY ONCE A DAY, NOTES: 12-29-18499 TAKING ALBUTEROL SULFATE (2.5 MG/3ML) 0.083% NEBULIZATION SOLUTION 1 VIAL INHALATION EVERY 6 HRS PRN, NOTES: NOT LATELY TAKING VENTOLIN HFA 108 (90 BASE) MCG/ACT AEROSOL SOLUTION 2 PUFFS NEEDED INHALATION EVERY 4 HRS PRN, NOTES: NOT LATELY TAKING KETOCONAZOLE 2 % CREAM 1 APPLICATION TO AFFECTED AREA EXTERNALLY ONCE A DAY TO BOTH FEET, NOTES: 12-29-18 0600 TAKING PHENERGAN 25 MG TABLET 1 TABLET ORALLY EVERY 6 HRS PRN NAUSEA, NOTES: 12-29-18499 TAKING ACETAMINOPHEN 500 MG CAPSULE 1 CAPSULES NEEDED ORALLY EVERY 6 HRS PRN, NOTES: A COUPLE DAYS TAKING IBUPROFEN 800 MG TABLET 1 TABLET WITH FOOD OR MILK NEEDED ORALLY THREE TIMES A DAY NEEDED FOR SEVERE HEADACHES, NOTES: A COUPLE DAYS TAKING AMMONIUM LACTATE 10 % LOTION 1 APPLICATION TO AFFECTED AREA EXTERNALLY TWICE A DAY, NOTES: 12-29-18499 TAKING ESTRADIOL 0.025 MG/24HR PATCH TWICE WEEKLY 1 PATCH TO SKIN TRANSDERMAL TWO TIMES A WEEK TAKING PROTONIX 40 MG TABLET DELAYED RELEASE 1 TABLET BID ORALLY 30 DAY(S) ORALLY BID, NOTES: 12-29-18499 TAKING LASIX 20 MG TABLET 1 TABLET ORALLY ONCE A DAY, NOTES: 12-29-18499 TAKING LOSARTAN POTASSIUM 25 MG TABLET 1 TABLET ORALLY ONCE A DAY, NOTES: 12-29-18499 TAKING NIFEDIPINE 20 MG CAPSULE 1 CAPSULE ORALLY DAILY, NOTES: 12-29-18499 TAKING TIZANIDINE HCL 4 MG TABLET 1 TABLET NEEDED ORALLY FOR SPASMS AND PAIN Q8H PRN MDD3, NOTES: 12-28-18 230 TAKING BELBUCA 75 MCG FILM 1 FILM TO THE GUM BUCALLY EVERY 12 HRS, NOTES: 12-28-18 170 TAKING LYRICA 200 MG CAPSULE 1 CAPSULE ORALLY THREE TIMES A DAY TAKING HYDROXYZINE HCL 10 MG TABLET DIRECTED ORALLY FOUR TIMES DAILY NOT-TAKING TRILEPTAL 300 MG TABLET 1 TABLET ORALLY TWICE A DAY, NOTES: 0500 12-29-18 NOT-TAKING CHANTIX 1 MG 1 TAB ORAL BID, NOTES: 12-29-18499 MEDICATION LIST REVIEWED AND RECONCILED WITH THE PATIENT PAST MEDICAL HISTORY SURGICAL MENOPAUSE S/P ELIA & BSO 2009 CHRONIC NECK/MID/LOW BACK PAIN PEPTIC ULCER DISEASE, S/P GASTRIC BYPASS - ON PROTONIX AND CARAFATE BY DR. MILLER BIPOLAR, ANXIETY, DEPRESSION - FOLLWS WITH DR. OTERO ALCOHOLISM MIGRAINE HEADACHES TOBACCO USE ADD CHRONIC RHINITIS/SINUSITIS RAYNAUD'S SYNDROME COMMON VARIABLE IMMUNO DEFICIENCY DISEASE ASTHMA HEART MURMUR - ECHO 10/2017 BORDERLINE LVH, MILD LAE, SUBTLE AV SCLEROSIS, AORTIC SCLEROSIS, MILD AR, MILD MR SLEEP APNEA WITH BIPAP S/P GASTRIC BYPASS FAINTING SPELLS ALLERGIES MORPHINE: , DIFF. BREATHING - ALLERGY LATEX: HIVES - ALLERGY DILAUDID: HIVES, DIFF. BREATHING - ALLERGY REGLAN: HIVES - ALLERGY LAMICTAL: HIVES - ALLERGY DEPAKOTE: CONFUSION - CONTRAINDICATION RISPERDAL: SUICIDAL IDEATION - ALLERGY KETOROLAC TROMETHAMINE: ANAPHYLAXIS - ALLERGY MUSCLE RELAXERS: ALTERED MENTAL STATUS - SIDE EFFECTS GASTROGRAFIN: HIVES - ALLERGY SURGICAL HISTORY LUMBAR LAMINECTOMY [place] 02/11 BACK SURGERY 1997 LAPAROTOMY X 4...CARTHAGE....DR. CRISTOBAL CHOLECYSTECTOMY 07/13 ELIA W/ AGUDELO, APPENDECTOMY - FOR ENDOMETRIOSIS 12/13 GASTRIC BYPASS (DR. CARTAGENA, [facility]) 01/2012 LAPAROSCOPY AND REMOVAL OF ADHESIONS (DR. BARRERA) 12/2012 CHEST TUBE ENDOSCOPY/COLONOSCOPY BLOOD TRANSFUSION BLADDER REPAIR 10/2016 LAPROSCOPC SURGERY FOR ENDOMETRIOSIS / LYSIS OF ADHESIONS AND SCAR TISSUE (BOWEL NICKED IN OR). 12/19/17 EGD - ESOPHAGEAL PLAQUE - BIOPSY RESULTS NOT SENT TO US (DR. MILLER) 05/2018 REMOVAL CYSTS IN BILATERAL EARS REMOVAL OF NEEDLE FROM RIGHT FOOT FAMILY HISTORY FATHER: ALIVE, DIAGNOSED WITH STROKE, CANCER MOTHER: ALIVE, HYPERTENSION, HEART DISEASE, DIABETES FATHER SKIN CANCER\\\\\\\\NSISTER WITH HOSHIMOTO\\\\\\\\\\\\\\'S. SOCIAL HISTORY GENERAL: TOBACCO USE ARE YOU A:CURRENT SMOKER ARE YOU INTERESTED IN QUITTING?NOT READY TO QUIT NO LONGER TAKING CHANTIX COUNSELED THE PATIENT ON SMOKING EFFECTS, EDUCATION [id number]/20/2019 HOW MANY CIGARETTES A DAY DO YOU SMOKE?11-20 HOW SOON AFTER YOU WAKE UP DO YOU SMOKE YOUR FIRST CIGARETTE?AFTER 60 MIN HOW OFTEN DO YOU SMOKE CIGARETTES?EVERY DAY PATIENT COUNSELED ON THE DANGERS OF TOBACCO USE AND URGED TO QUIT:02/22/2019 HIV / HEP-C SCREENING HIV TEST OFFERED TO PATIENT:YES DATE OFFERED:03/13/2017 TEST ACCEPTED:NO HEP-C TEST OFFERED TO PATIENT:NO REASON:PATIENT DECLINED EDUCATION LEVEL OF EDUCATION:NOT FINISHED COLLEGE DIET: REGULAR. LANGUAGE LANGUAGES SPOKEN:ITALIAN DOMESTIC VIOLENCE DO YOU FEEL SAFE IN YOUR ENVIRONMENT?YES BMI CARE GOAL FOLLOW-UP ABOVE NORMAL BMI FOLLOW-UPDIETARY MANAGEMENT EDUCATION, GUIDANCE, AND COUNSELING, DIETARY NEEDS EDUCATION, EXERCISE PROMOTION: STRENGTH TRAINING RECREATIONAL DRUG USE DRUG USE?NO EXERCISE: NO REGULAR EXERCISE. LEARNING BARRIERS / SPECIAL NEEDS CHANGE FROM LAST VISIT?NO BARRIERS TO LEARNING?NO HEARING IMPAIRED?NO VISION IMPAIRED?NO COGNITIVELY IMPAIRED?NO READINESS TO LEARN?YES LEARNING PREFERENCES?NO LEARNING CAPABILITIES PRESENT?YES EMOTIONAL BARRIERS?NO SPECIAL DEVICES?NO STAIN DIPPER NEEDED?NO LUNG CANCER SCREENING SMOKING STATUS:CURRENT SMOKER PAIN CLINIC PFS, CLERGY, PUBLIC HEALTH REFERRALS PFS REFERRAL NEEDED?NO CLERGY REFERRAL NEEDED?NO PUBLIC HEALTH REFERRAL NEEDED?NO WAS THE PROVIDER NOTIFIED OF ANY PERTINENT INFO? N/A HAS THE PATIENT BEEN EDUCATED REGARDING HIS/HER PLAN OF CARE?YES HAS THE PATIENT BEEN EDUCATED REGARDING PAIN, THE RISK FOR PAIN, THE IMPORTANCE OF EFFECTIVE PAIN MANAGEMENT, AND THE PAIN ASSESSMENT PROCESS?YES LATEX QUESTIONNAIRE LATEX ALLERGY : HAVE YOU EVER DEVELOPED ANY TYPE OF REACTION AFTER HANDLING LATEX PRODUCTS SUCH RUBBER GLOVES, CONDOMS, DIAPHRAGMS, BALLOONS, SOCKS, OR UNDERWEAR?YES LATEX ALLERGY : HAVE YOU EVER DEVELOPED ANY TYPE OF REACTION DURING OR AFTER DENTAL APPOINTMENT, VAGINAL/RECTAL EXAMINATION, SURGICAL PROCEDURE, OR ANY OTHER EXPOSURE?YES - PLEASE INDICATE :RUBBER GLOVES, CONDOMS, UNDERWEAR, OTHER (DOCUMENT IN NOTES) BRAS - PLEASE INDICATE :VAGINAL EXAM DATE ASKED : 12/07/2018 LATEX RISK : HAVE YOU EVER HAD ANY DIFFICULTY BREATHING OR HIVES AFTER EATING OR HANDLING ANY FRUITS, OR VEGETABLES; SUCH KIWI, BANANAS, STONE FRUITS, OR CHESTNUTSNO LATEX RISK : DO YOU HAVE A PREVIOUS PERSONAL HISTORY OF MORE THAN NINE SURGERIES, SPINA BIFIDA, OR REPEATED CATHERTIZATIONS? YES - PLEASE INDICATE : > 9 SURGERIES LATEX RISK : ARE YOU FREQUENTLY EXPOSED TO LATEX PRODUCTS IN YOUR OCCUPATION?NO CAFFEINE CAFFEINE USE?YES 2-3 CUPS COFFEE & ICED TEA THROUGH THE DAY. ADVANCE DIRECTIVE ADVANCE DIRECTIVE DISCUSSED WITH PATIENT:YES 02/22/19 PT. DOES NOT HAVE ANY ADVANCED DIREDCTIVES AND SHE DECLINES INFORMATION ON HCP AT THIS TIME. LAS SIKHISM [id number] BAHAI MARITAL STATUS: SINGLE. ALCOHOL SCREENING DID YOU HAVE A DRINK CONTAINING ALCOHOL IN THE PAST YEAR?NO POINTS0 INTERPRETATIONNEGATIVE OCCUPATION: UNEMPLOYED. SEXUAL HX HAD SEX IN THE LAST 12 MONTHS (VAGINAL, ORAL, OR ANAL)?NO LMP:2009 HAVE YOU EVER HAD AN STD?NO REVIEWED WITH PT 06/23/18 1154 BVREVIEWED WITH PATIENT 07/07/18 1158 JS11/05/18 REVIEWED WITH PT. AD12/07/18 REVIEWED WITH PT. AD. HOSPITALIZATION/MAJOR DIAGNOSTIC PROCEDURE SURGERY RELATED [facility] ([facility]) 05/2012 ADMITTED TO [facility] 12/2015 [facility] 10/2015 [facility] DAY [facility]ITAL STAY DUE TO NICKED BOWEL 12/19/2017 PNEUMONIA 07/2018 REVIEW OF SYSTEMS REVIEWED BY: PROVIDER: HARRISON ZEPEDA MD . CONSTITUTIONAL: ANY CHANGE IN YOUR MEDICAL CONDITION? NO . CHILLS NO . FEVER NO . INFECTION: DO YOU HAVE NEW INFECTIONS? NO . DO YOU HAVE HISTORY OF MRSA? YES . MUSCULOSKELETAL: ANY NEW PATTERNS OF PAIN OR NUMBNESS? YES PT HAD A DIAGNOSTIC FACET BLOCK DONE 12/29/18, REPORTS EXCELLENT WITH THAT. PT STATES SHE HAS PAIN RADIATING DOWN HER ENTIRE RIGHT LEG OVER THE PAST MONTH, PREVIOUSLY WAS ONLY PARTIALLY DOWN HER LEG . GASTROENTEROLOGY: ANY NEW CHANGE IN BOWEL CONTROL? NO . GENITOURINARY: ANY NEW CHANGE IN BLADDER CONTROL? NO . IS THERE A CHANCE YOU COULD BE ? NO . HEMATOLOGY/LYMPH: DO YOU TAKE ANY BLOOD THINNERS? (FOR EXAMPLE- COUMADIN, PLAVIX, AGGRENOX, PLATEL, PRADAXA, OR XARELTO) NO . WHEN WAS YOUR LAST DOSE? DATE: TIME: . NEUROLOGY: HAVE YOU FALLEN IN THE PAST 12 MONTHS? YES PT REPORTS SHE HAS FREQUENT FALLS - STATES HER RIGHT LEG "GIVES OUT" AND SHE FALLS. DENIES INJURY, NO ED VISITS, NO XRAYS. . ANY NEW EXTREMITY NUMBNESS OR WEAKNESS? NO . CARDIOLOGY: DO YOU HAVE A PACEMAKER OR DEFIBRILLATOR? NO . RESPIRATORY: HAVE YOU BEEN SICK IN THE PAST WEEK? NO . FEVER NO . FLU LIKE SYMPTOMS? NO . COUGH NO . INTEGUMENTARY: DO YOU HAVE ANY RASHES OR OPEN SORES? NO . ALLERGIC/IMMUNO: ARE YOU ALLERGIC TO IV DYE? NO . ANY NEW ALLERGIES? NO . PSYCHIATRIC: DO YOU HAVE THOUGHTS OF HURTING YOURSELF OR SOMEONE ELSE? NO . ARE YOU ABUSED, NEGLECTED, OR IN AN UNSAFE ENVIRONMENT? NO . ENDOCRINOLOGY: ARE YOU DIABETIC? NO . OTHER: DO YOU NEED ANY PRESCRIPTIONS? YES . IF YES, PLEASE LIST: ____NEEDS LYRICA AND BELBUCA REFILLED, ALSO REQUESTING REFILL FOR IMITREX AND NARATRIPTAN . ANY NEW PROBLEMS WITH YOUR MEDICATIONS? NO . WHEN DID YOU LAST EAT? ____ . WHEN DID YOU LAST DRINK? ____ . WHAT DID YOU LAST DRINK? ____ . NAME OF PERSON DRIVING YOU HOME? ____ . DO YOU HAVE ANY OTHER QUESTIONS OR CONCERNS YES LEG WEAKNESS, FREQUENT FALLS, WOULD LIKE TO DISCUSS ANOTHER BOTOX TREATMENT . VITAL SIGNS WT 207.4 LBS, HT 67", BMI 32.48 INDEX, BP 142/73 MM HG, HR 79 /MIN, RR 18 /MIN, TEMP 97.6 F, OXYGEN SAT % 98%, SAFE IN ENV? (Y/N) YES, NA INITIALS AW 0929, REVIEWED BY: KEITH. EXAMINATION GENERAL EXAMINATION: PATIENT IS ALERT O X 3 AND COOPERATIVE. TENDERNESS IN THE RIGHT LOWER BACK AREA OVER THE LUMBAR FACET JOINTS. TENDERNESS IN THE THORACIC AREA. PRESENCE OF BANDS OF TISSUE AND TRIGGER POINTS WITH RESTRICTION OF MOVEMENT OF THE THORACIC SPINE. MRI OF THE LUMBAR SPINE DONE ON 09/04/2016 SHOWS FACET ARTHROPATHY CHANGES. ASSESSMENTS SPONDYLOSIS OF LUMBAR REGION WITHOUT MYELOPATHY OR RADICULOPATHY - M47.816 (PRIMARY) CHRONIC MIGRAINE WITHOUT AURA, WITHOUT MENTION OF INTRACTABLE MIGRAINE WITHOUT MENTION OF STATUS MIGRAINOSUS - 346.70 SPONDYLOSIS OF LUMBOSACRAL REGION WITHOUT MYELOPATHY OR RADICULOPATHY - M47.817 MYALGIA, OTHER SITE - M79.18 PAIN IN THORACIC SPINE - M54.6 OTHER CHRONIC PAIN - G89.29 TREATMENT CHRONIC MIGRAINE WITHOUT AURA, WITHOUT MENTION OF INTRACTABLE MIGRAINE WITHOUT MENTION OF STATUS MIGRAINOSUS CONTINUE IMITREX SOLUTION, 4 MG/0.5ML, 1 INJECTION NEEDED AT THE ONSET OF A MIGRAINE, SUBCUTANEOUS, REPEAT TIMES ONE IF NOT EFFECTIVE (DR JC), NOTES: NOT LATELY CLINICAL NOTES: WE DISCUSSED SEVERAL ISSUES WITH MS. ALMONTE'S PAIN MANAGEMENT CASE. DUE TO THE LUMBAR SPONDYLOSIS AND THE PATIENT HAVING GOOD PAIN RELIEF FOLLOWING TWO DIAGNOSTIC FACET BLOCKS, I WOULD LIKE TO MOVE FORWARD WITH RIGHT L4-L5 AND RIGHT L5-S1 RADIOFREQUENCY ABLATIONS AT THIS TIME. DUE TO THE TRIGGER POINTS, BANDS OF TISSUE, AND RESTRICTION OF MOVEMENT IN THE THORACIC AREA, I WOULD ALSO LIKE TO MOVE FORWARD WITH A TRIGGER POINT INJECTION AT THIS TIME. DUE TO THE MIGRAINES RETURNING MORE FREQUENTLY AND THE PATIENT EXPERIENCED GOOD PAIN RELIEF FROM HER LAST BOTOX INJECTION, WITH THE MIGRAINES GOING DOWN TO LESS THAN 8 EPISODES PER MONTH, I WOULD LIKE TO REQUEST ANOTHER BOTOX INJECTION TO BE DONE. WE DISCUSSED THE BENEFITS, RISKS, AND ALTERNATIVES OF ALL PROCEDURES AND THE PATIENT WOULD LIKE TO PROCEED. I HAD A MEDICATION MANAGEMENT DISCUSSION WITH THE PATIENT AND I AM INCREASING THE BELBUCA FILM FROM 75 MCG TO 150 MCG TO BE TAKEN UP TO 2 PER DAY. I ADVISED THE PATIENT IF SHE EXPERIENCES ANY ADVERSE SIDE EFFECTS, TO GO BACK TO THE ORIGINAL REGIMEN. THE PATIENT WILL CONTINUE WITH IMITREX AND LYRICA. I DISCUSSED THE RISKS ASSOCIATED WITH THE USE OF OPIOIDS INCLUDING THE POSSIBLE DEVELOPMENT OF ADDICTION OR TOLERANCE AND THE PATIENT VERBALIZED UNDERSTANDING. I REVIEWED ISTOP __#[id number]. UTOX DONE ON 10/20/2018 SHOWS CONCURRENT RESULTS. THE PATIENT WILL REQUEST TO BE PRESCRIBED NARATRIPTAN FROM HER PRIMARY CARE PHYSICIAN TO HELP WITH HER MIGRAINE PAIN. THE PATIENT STATES SHE WILL BRING ALL OF HER MEDICATION BOTTLES TO THE NEXT VISITS. I WAS WITH THE PATIENT FOR MORE THAN 30 MINUTES AND MORE THAN HALF OF THAT TIME WAS SPENT DISCUSSING THEIR CARE, UPCOMING PROCEDURES, MEDICATIONS, AND ADDRESSING HER QUESTIONS. INSTRUCTIONS WERE GIVEN, QUESTIONS WERE ANSWERED, PATIENT REPORTS UNDERSTANDING AND AGREES WITH THE PLAN. I, CYRUS PALMER, DOCUMENTED THE ABOVE INFORMATION ACTING A SCRIBE FOR DR. ZEPEDA. I HAVE REVIEWED THE ABOVE DOCUMENT, WRITTEN BY CYRUS NUÑEZ AND I VERIFY THAT IT IS ACCURATE. . OTHERS REFILL BELBUCA FILM, 150 MCG, 1 FILM TO THE GUM, BUCALLY, EVERY 12 HRS, 30 DAY(S), 60, REFILLS 0, NOTES: 12-28-18 1700 REFILL LYRICA CAPSULE, 200 MG, 1 CAPSULE, ORALLY, THREE TIMES A DAY MDD3, 30 DAYS, 90, REFILLS 0 REFILL NARATRIPTAN HCL TABLET, 2.5 MG, 1 TABLET NEEDED ONE TIME AT ONSET OF MIGRAINE, ORALLY MAY REPEAT IN 2 HRS, ONCE A DAY MDD2, 30 DAYS, 9, REFILLS 0, NOTES: 12-29-18 2800 PROCEDURE CODES FA211 ESTABILISHED PATIENT [facility] FACILITY CHARGE [id number] CURRENT MEDS W/DOSAGES DOCUMENTED [id number] PAIN ASSESS POS TOOL F/U PLAN DOC DISPOSITION & COMMUNICATION FOLLOW UP 3 WEEKS (REASON: RF BLOCK, BOTOX, TPI) ELECTRONICALLY SIGNED BY HARRSION ZEPEDA MD, MD ON 03/03/2019 AT 04:12 PM EDT DISCLAIMER : THIS IS A VISIT SUMMARY EXTRACTED FROM THE [employer] CHART. IT IS NOT A COPY OF THE [employer] PROGRESS NOTE. NENITAD
== END ==
LOC: M PAIN 09:30
PROVIDERS: ATTEND Anesthesiology
DX: M47.816 Spondylosis without myelopathy or radiculopathy, lumbar region (principal); M47.817 Spondylosis without myelopathy or radiculopathy, lumbosacral region; M54.6 Pain in thoracic spine; G89.29 Other chronic pain; M79.18 Myalgia, other site; F10.21 Alcohol dependence, in remission; I73.00 Raynaud's syndrome without gangrene; J45.909 Unspecified asthma, uncomplicated; D83.9 Common variable immunodeficiency, unspecified; G47.30 Sleep apnea, unspecified; F17.210 Nicotine dependence, cigarettes, uncomplicated; Z79.899 Other long term (current) drug therapy; Z88.5 Allergy status to narcotic agent; Z88.8 Allergy status to other drugs, medicaments and biological substances; Z91.040 Latex allergy status; Z91.81 History of falling; Z86.69 Personal history of other diseases of the nervous system and sense organs; Z98.84 Bariatric surgery status; Z86.14 Personal history of Methicillin resistant Staphylococcus aureus infection; Z87.11 Personal history of peptic ulcer disease; Z86.59 Personal history of other mental and behavioral disorders

== ENCOUNTER → 2019-03-30 | Outpatient (REF) | payer OTHER ==
[2019-03-30 19:26] LABS: BASO # 0.1 10^3/uL (0.0-0.2); BASO % 1.1 % (0.0-1.0); EOS # 0.1 10^3/uL (0.0-0.50); EOS % 1.3 % (0.0-3.0); HEMATOCRIT 39.7 % (36.0-47.0); HEMOGLOBIN 12.8 g/dl (12.0-15.5); LYMPH # 2.5 10^3/uL (1.5-4.5); LYMPH % 39.3 % (24.0-44.0); MEAN CORPUSCULAR HEMOGLOBIN 28.7 pg (27.0-33.0); MEAN CORPUSCULAR HGB CONC 32.2 g/dl (32.0-36.5); MONO # 0.4 10^3/uL (0.0-0.8); MONO % 6.6 % (0.0-5.0); NEUTROPHILS # 3.3 10^3/uL (1.8-7.7); NEUTROPHILS % 51.5 % (36.0-66.0); PLATELET COUNT, AUTOMATED 186 10^3/uL (150-450); RED BLOOD COUNT 4.46 10^6/uL (4.00-5.40); WHITE BLOOD COUNT 6.4 10^3/uL (4.0-10.0)
[2019-03-30 19:43] LABS: ALBUMIN 3.6 GM/DL (3.2-5.2); ALT/SGPT 22 U/L (12-78); BILIRUBIN,TOTAL 0.3 MG/DL (0.2-1.0); BLOOD UREA NITROGEN 9 MG/DL (7-18); CALCIUM LEVEL 9.7 MG/DL (8.5-10.1); CARBON DIOXIDE LEVEL 29 MEQ/L (21-32); CHLORIDE LEVEL 104 MEQ/L (98-107); CREATININE FOR GFR 0.88 MG/DL (0.55-1.30); GLOMERULAR FILTRATION RATE > 60.0 (>60); GLUCOSE, FASTING 74 MG/DL (70-100); SODIUM LEVEL 140 MEQ/L (136-145); TOTAL PROTEIN 7.6 GM/DL (6.4-8.2)
[2019-03-30 19:58] LABS: APPEARANCE, URINE CLEAR (CLEAR); BACTERIA, URINE AUTO NEGATIVE (NEGATIVE); BILIRUBIN, URINE AUTO NEGATIVE (NEGATIVE); BLOOD, URINE BLOOD NEGATIVE (NEGATIVE); COLOR, URINE YELLOW (YELLOW); GLUCOSE, URINE (UA) AUTO NEGATIVE (NEGATIVE); KETONE, URINE AUTO TRACE mg/dL (NEGATIVE); LEUKOCYTE ESTERASE, URINE AUTO NEGATIVE (NEGATIVE); MUCUS, URINE SMALL (NEGATIVE); NITRITE, URINE AUTO NEGATIVE (NEGATIVE); PROTEIN, URINE AUTO NEGATIVE (NEGATIVE); RBC, URINE AUTO 1 /HPF (0-3); SPECIFIC GRAVITY URINE AUTO 1.013 (1.002-1.035); SQUAMOUS EPITHELIAL CELL UR AU 0 /HPF (0-6); WBC, URINE AUTO 1 /HPF (0-3)
== END ==
LOC: M SFHCADAM 16:46
PROVIDERS: ATTEND Physician Assistant
DX: L03.818 Cellulitis of other sites (principal); R30.0 Dysuria; J40 Bronchitis, not specified as acute or chronic

== ENCOUNTER → 2019-04-06 | Outpatient (CLI) | payer OTHER ==
[~2019-04-06] MED LIST changes: +BOTULINUM INJ 100 UNITS (J0585) IM ONE; +diazePAM 5 MG TAB As Ordered ONE; +oxyCODONE 5MG TAB As Ordered ONE
--- NOTE | 2019-04-16 00:55 | ECWPNPC ---
PATIENT NAME: ADELA ALMONTE : 1980 GENDER: FEMALE VISIT DATE: 04/06/2019 DISCHARGE DATE: 04/06/19 1308 VISIT LOCKED DATE TIME: PHYSICIAN: HARRISON ZEPEDA MD RESOURCE: HARRISON ZEPEDA MD REASON FOR APPOINTMENT 1. BOTOX HISTORY OF PRESENT ILLNESS HISTORY OF PRESENT ILLNESS: PAIN THE PATIENT DESCRIBES THE PAIN... FALL RISK SCREENING: SCREENING :NO FALLS REPORTED IN THE LAST YEAR CURRENT MEDICATIONS TAKING IMITREX 4 MG/0.5ML SOLUTION 1 INJECTION NEEDED AT THE ONSET OF A MIGRAINE SUBCUTANEOUS REPEAT TIMES ONE IF NOT EFFECTIVE (DR JC), NOTES: NOT LATELY TAKING NARATRIPTAN HCL 2.5 MG TABLET 1 TABLET NEEDED ONE TIME AT ONSET OF MIGRAINE ORALLY MAY REPEAT IN 2 HRS ONCE A DAY MDD2, NOTES: NOT LATELY TAKING POTASSIUM CHLORIDE ER 20 MEQ TABLET EXTENDED RELEASE 1 TABLET WITH FOOD ORALLY ONCE A DAY, NOTES: NOT LATELY TAKING CUVITRU 4 GM/20ML SOLUTION 11 GRAMS SUBCUTANEOUS WEEKLY, NOTES: 04-02-19499 TAKING BUSPIRONE HCL 30 MG TABLET 1 TABLET ORALLY TWICE A DAY, NOTES: 04-06-19499 TAKING VYVANSE 70 MG CAPSULE 1 CAPSULE IN THE MORNING ORALLY ONCE A DAY, NOTES: 2 DAYS AGO TAKING VRAYLAR 3 MG CAPSULE 1 CAPSULE ORALLY ONCE A DAY, NOTES: 04-05-192099 TAKING FLUTICASONE PROPIONATE 50 MCG/ACT SUSPENSION 1 SPRAY IN EACH NOSTRIL NASALLY ONCE A DAY, NOTES: 04-06-19499 TAKING CLARITIN 10 MG TABLET 1 TABLET ORALLY ONCE A DAY, NOTES: 04-06-19499 TAKING ALBUTEROL SULFATE (2.5 MG/3ML) 0.083% NEBULIZATION SOLUTION 1 VIAL INHALATION EVERY 6 HRS PRN, NOTES: NOT LATELY TAKING KETOCONAZOLE 2 % CREAM 1 APPLICATION TO AFFECTED AREA EXTERNALLY ONCE A DAY TO BOTH FEET, NOTES: NOT LATELY TAKING PHENERGAN 25 MG TABLET 1 TABLET ORALLY EVERY 6 HRS PRN NAUSEA, NOTES: 04-06-19499 TAKING ACETAMINOPHEN 500 MG CAPSULE 1 CAPSULES NEEDED ORALLY EVERY 6 HRS PRN, NOTES: A COUPLE DAYS TAKING IBUPROFEN 800 MG TABLET 1 TABLET WITH FOOD OR MILK NEEDED ORALLY THREE TIMES A DAY NEEDED FOR SEVERE HEADACHES, NOTES: NOT LATELY TAKING AMMONIUM LACTATE 10 % LOTION 1 APPLICATION TO AFFECTED AREA EXTERNALLY TWICE A DAY, NOTES: NOT LATELY TAKING ESTRADIOL 0.025 MG/24HR PATCH TWICE WEEKLY 1 PATCH TO SKIN TRANSDERMAL TWO TIMES A WEEK, NOTES: 04-06-19499 TAKING PROTONIX 40 MG TABLET DELAYED RELEASE 1 TABLET BID ORALLY 30 DAY(S) ORALLY BID, NOTES: 04-06-19799 TAKING LOSARTAN POTASSIUM 25 MG TABLET 1 TABLET ORALLY ONCE A DAY, NOTES: 04-06-19499 TAKING NIFEDIPINE 20 MG CAPSULE 1 CAPSULE ORALLY DAILY, NOTES: 04-06-19499 TAKING TIZANIDINE HCL 4 MG TABLET 1 TABLET NEEDED ORALLY FOR SPASMS AND PAIN Q8H PRN MDD3, NOTES: 04-06-19499 TAKING HYDROXYZINE HCL 10 MG TABLET DIRECTED ORALLY FOUR TIMES DAILY, NOTES: 04-05-19499 TAKING LYRICA 200 MG CAPSULE 1 CAPSULE ORALLY THREE TIMES A DAY MDD3, NOTES: 04-06-19499 TAKING BELBUCA 150 MCG FILM 1 FILM TO THE GUM BUCALLY EVERY 12 HRS, NOTES: 04-06-19499 TAKING DOXYCYCLINE HYCLATE 100 MG TABLET 1 TABLET ORALLY TWICE A DAY, NOTES: 04-06-19499 TAKING VENTOLIN HFA 108 (90 BASE) MCG/ACT AEROSOL SOLUTION 2 PUFFS NEEDED INHALATION EVERY 4 HRS PRN, NOTES: 04-06-19499 NOT-TAKING TRILEPTAL 300 MG TABLET 1 TABLET ORALLY TWICE A DAY, NOTES: 0500 12-29-18 NOT-TAKING CHANTIX 1 MG 1 TAB ORAL BID, NOTES: 12-29-18499 UNKNOWN LASIX 20 MG TABLET 1 TABLET ORALLY ONCE A DAY, NOTES: 12-29-18499 MEDICATION LIST REVIEWED AND RECONCILED WITH THE PATIENT PAST MEDICAL HISTORY SURGICAL MENOPAUSE S/P ELIA & BSO 2009 CHRONIC NECK/MID/LOW BACK PAIN PEPTIC ULCER DISEASE, S/P GASTRIC BYPASS - ON PROTONIX AND CARAFATE BY DR. MILLER BIPOLAR, ANXIETY, DEPRESSION - FOLLWS WITH DR. OTERO ALCOHOLISM MIGRAINE HEADACHES TOBACCO USE ADD CHRONIC RHINITIS/SINUSITIS RAYNAUD'S SYNDROME COMMON VARIABLE IMMUNO DEFICIENCY DISEASE ASTHMA HEART MURMUR - ECHO 10/2017 BORDERLINE LVH, MILD LAE, SUBTLE AV SCLEROSIS, AORTIC SCLEROSIS, MILD AR, MILD MR SLEEP APNEA WITH BIPAP S/P GASTRIC BYPASS FAINTING SPELLS ALLERGIES MORPHINE: , DIFF. BREATHING - ALLERGY LATEX: HIVES - ALLERGY DILAUDID: HIVES, DIFF. BREATHING - ALLERGY REGLAN: HIVES - ALLERGY LAMICTAL: HIVES - ALLERGY DEPAKOTE: CONFUSION - CONTRAINDICATION RISPERDAL: SUICIDAL IDEATION - ALLERGY KETOROLAC TROMETHAMINE: ANAPHYLAXIS - ALLERGY MUSCLE RELAXERS: ALTERED MENTAL STATUS - SIDE EFFECTS GASTROGRAFIN: HIVES - ALLERGY SURGICAL HISTORY LUMBAR LAMINECTOMY [place] 02/11 BACK SURGERY 1997 LAPAROTOMY X 4...CARTHAGE....DR. CRISTOBAL CHOLECYSTECTOMY 07/13 ELIA W/ AGUDELO, APPENDECTOMY - FOR ENDOMETRIOSIS 12/13 GASTRIC BYPASS (DR. CARTAGENA, [facility]) 01/2012 LAPAROSCOPY AND REMOVAL OF ADHESIONS (DR. BARRERA) 12/2012 CHEST TUBE ENDOSCOPY/COLONOSCOPY BLOOD TRANSFUSION BLADDER REPAIR 10/2016 LAPROSCOPC SURGERY FOR ENDOMETRIOSIS / LYSIS OF ADHESIONS AND SCAR TISSUE (BOWEL NICKED IN OR). 12/19/17 EGD - ESOPHAGEAL PLAQUE - BIOPSY RESULTS NOT SENT TO US (DR. MILLER) 05/2018 REMOVAL CYSTS IN BILATERAL EARS REMOVAL OF NEEDLE FROM RIGHT FOOT FAMILY HISTORY FATHER: ALIVE, DIAGNOSED WITH STROKE, CANCER MOTHER: ALIVE, HEART DISEASE, DIABETES, HYPERTENSION FATHER SKIN CANCER\\\\\\\\NSISTER WITH HOSHIMOTO\\\\\\\\\\\\\\'S. SOCIAL HISTORY GENERAL: TOBACCO USE ARE YOU A:CURRENT SMOKER ARE YOU INTERESTED IN QUITTING?NOT READY TO QUIT NO LONGER TAKING CHANTIX COUNSELED THE PATIENT ON SMOKING EFFECTS, EDUCATION [id number]/20/2019 HOW MANY CIGARETTES A DAY DO YOU SMOKE?11-20 HOW SOON AFTER YOU WAKE UP DO YOU SMOKE YOUR FIRST CIGARETTE?AFTER 60 MIN HOW OFTEN DO YOU SMOKE CIGARETTES?EVERY DAY PATIENT COUNSELED ON THE DANGERS OF TOBACCO USE AND URGED TO QUIT:04/06/2019 HIV / HEP-C SCREENING HIV TEST OFFERED TO PATIENT:YES DATE OFFERED:03/13/2017 TEST ACCEPTED:NO HEP-C TEST OFFERED TO PATIENT:NO REASON:PATIENT DECLINED EDUCATION LEVEL OF EDUCATION:NOT FINISHED COLLEGE DIET: REGULAR. LANGUAGE LANGUAGES SPOKEN:TAMAZIGHT DOMESTIC VIOLENCE DO YOU FEEL SAFE IN YOUR ENVIRONMENT?YES BMI CARE GOAL FOLLOW-UP ABOVE NORMAL BMI FOLLOW-UPDIETARY MANAGEMENT EDUCATION, GUIDANCE, AND COUNSELING, DIETARY NEEDS EDUCATION, EXERCISE PROMOTION: STRENGTH TRAINING RECREATIONAL DRUG USE DRUG USE?NO EXERCISE: NO REGULAR EXERCISE. LEARNING BARRIERS / SPECIAL NEEDS CHANGE FROM LAST VISIT?NO BARRIERS TO LEARNING?NO HEARING IMPAIRED?NO VISION IMPAIRED?NO COGNITIVELY IMPAIRED?NO READINESS TO LEARN?YES LEARNING PREFERENCES?NO LEARNING CAPABILITIES PRESENT?YES EMOTIONAL BARRIERS?NO SPECIAL DEVICES?NO COM WRITER NEEDED?NO LUNG CANCER SCREENING SMOKING STATUS:CURRENT SMOKER PAIN CLINIC PFS, CLERGY, PUBLIC HEALTH REFERRALS PFS REFERRAL NEEDED?NO CLERGY REFERRAL NEEDED?NO PUBLIC HEALTH REFERRAL NEEDED?NO WAS THE PROVIDER NOTIFIED OF ANY PERTINENT INFO? N/A HAS THE PATIENT BEEN EDUCATED REGARDING HIS/HER PLAN OF CARE?YES HAS THE PATIENT BEEN EDUCATED REGARDING PAIN, THE RISK FOR PAIN, THE IMPORTANCE OF EFFECTIVE PAIN MANAGEMENT, AND THE PAIN ASSESSMENT PROCESS?YES LATEX QUESTIONNAIRE LATEX ALLERGY : HAVE YOU EVER DEVELOPED ANY TYPE OF REACTION AFTER HANDLING LATEX PRODUCTS SUCH RUBBER GLOVES, CONDOMS, DIAPHRAGMS, BALLOONS, SOCKS, OR UNDERWEAR?YES LATEX ALLERGY : HAVE YOU EVER DEVELOPED ANY TYPE OF REACTION DURING OR AFTER DENTAL APPOINTMENT, VAGINAL/RECTAL EXAMINATION, SURGICAL PROCEDURE, OR ANY OTHER EXPOSURE?YES - PLEASE INDICATE :RUBBER GLOVES, CONDOMS, UNDERWEAR, OTHER (DOCUMENT IN NOTES) BRAS - PLEASE INDICATE :VAGINAL EXAM DATE ASKED : 12/07/2018 LATEX RISK : HAVE YOU EVER HAD ANY DIFFICULTY BREATHING OR HIVES AFTER EATING OR HANDLING ANY FRUITS, OR VEGETABLES; SUCH KIWI, BANANAS, STONE FRUITS, OR CHESTNUTSNO LATEX RISK : DO YOU HAVE A PREVIOUS PERSONAL HISTORY OF MORE THAN NINE SURGERIES, SPINA BIFIDA, OR REPEATED CATHERTIZATIONS? YES - PLEASE INDICATE : > 9 SURGERIES LATEX RISK : ARE YOU FREQUENTLY EXPOSED TO LATEX PRODUCTS IN YOUR OCCUPATION?NO CAFFEINE CAFFEINE USE?YES 2-3 CUPS COFFEE & ICED TEA THROUGH THE DAY. ADVANCE DIRECTIVE ADVANCE DIRECTIVE DISCUSSED WITH PATIENT:YES 02/22/19 PT. DOES NOT HAVE ANY ADVANCED DIREDCTIVES AND SHE DECLINES INFORMATION ON HCP AT THIS TIME. LAS PROTESTANT [id number] NONDENOMINATIONAL MARITAL STATUS: SINGLE. ALCOHOL SCREENING DID YOU HAVE A DRINK CONTAINING ALCOHOL IN THE PAST YEAR?NO POINTS0 INTERPRETATIONNEGATIVE OCCUPATION: UNEMPLOYED. SEXUAL HX HAD SEX IN THE LAST 12 MONTHS (VAGINAL, ORAL, OR ANAL)?NO LMP:2009 HAVE YOU EVER HAD AN STD?NO REVIEWED WITH PT 06/23/18 1154 BVREVIEWED WITH PATIENT 07/07/18 1158 JS11/05/18 REVIEWED WITH PT. AD12/07/18 REVIEWED WITH PT. AD. HOSPITALIZATION/MAJOR DIAGNOSTIC PROCEDURE SURGERY RELATED [facility] ([facility]) 05/2012 ADMITTED TO [facility] 12/2015 [facility] 10/2015 [facility] 2 DAY HOSPITAL STAY DUE TO NICKED BOWEL 12/19/2017 PNEUMONIA 07/2018 REVIEW OF SYSTEMS REVIEWED BY: PROVIDER: . CONSTITUTIONAL: ANY CHANGE IN YOUR MEDICAL CONDITION? NO . CHILLS NO . FEVER NO . INFECTION: DO YOU HAVE NEW INFECTIONS? YES - RIGHT MA HEALING . DO YOU HAVE HISTORY OF MRSA? YES . MUSCULOSKELETAL: ANY NEW PATTERNS OF PAIN OR NUMBNESS? NO . GASTROENTEROLOGY: ANY NEW CHANGE IN BOWEL CONTROL? NO . GENITOURINARY: ANY NEW CHANGE IN BLADDER CONTROL? NO . IS THERE A CHANCE YOU COULD BE ? NO . HEMATOLOGY/LYMPH: DO YOU TAKE ANY BLOOD THINNERS? (FOR EXAMPLE- COUMADIN, PLAVIX, AGGRENOX, PLATEL, PRADAXA, OR XARELTO) NO . WHEN WAS YOUR LAST DOSE? DATE: TIME: . NEUROLOGY: HAVE YOU FALLEN IN THE PAST 12 MONTHS? NO . ANY NEW EXTREMITY NUMBNESS OR WEAKNESS? NO . CARDIOLOGY: DO YOU HAVE A PACEMAKER OR DEFIBRILLATOR? NO . RESPIRATORY: HAVE YOU BEEN SICK IN THE PAST WEEK? NO . FEVER NO . FLU LIKE SYMPTOMS? NO . COUGH NO . INTEGUMENTARY: DO YOU HAVE ANY RASHES OR OPEN SORES? NO . ALLERGIC/IMMUNO: ARE YOU ALLERGIC TO IV DYE? NO . ANY NEW ALLERGIES? NO . PSYCHIATRIC: DO YOU HAVE THOUGHTS OF HURTING YOURSELF OR SOMEONE ELSE? NO . ARE YOU ABUSED, NEGLECTED, OR IN AN UNSAFE ENVIRONMENT? NO . ENDOCRINOLOGY: ARE YOU DIABETIC? NO . OTHER: DO YOU NEED ANY PRESCRIPTIONS? NO . IF YES, PLEASE LIST: ____ . ANY NEW PROBLEMS WITH YOUR MEDICATIONS? NO . WHEN DID YOU LAST EAT? 04-05-19 1900 . WHEN DID YOU LAST DRINK? 04-06-19 0500 . WHAT DID YOU LAST DRINK? WATER . NAME OF PERSON DRIVING YOU HOME? VTC . DO YOU HAVE ANY OTHER QUESTIONS OR CONCERNS NO . VITAL SIGNS WT 200.4 LBS, HT 67", BMI 31.38 INDEX, BP 123/74 MM HG, HR 71 /MIN, RR 18 /MIN, TEMP 96.0 F, OXYGEN SAT % 93%, NA INITIALS AW 1116, REVIEWED BY: LS. ASSESSMENTS CHRONIC MIGRAINE - G43.709 (PRIMARY) PROCEDURES PN BOTOX INJECTIONS FIRST INJECTION PRE PROCEDURE DIAGNOSIS CHRONIC MIGRAINE HEADACHES. POST PROCEDURE DIAGNOSIS CHRONIC MIGRAINE HEADACHES. PROCEDURE BOTOX INJECTION AT THE HEAD, NECK AND SHOULDERS SURGEON DR. HARRISON ZEPEDA MACHINE WASHER NONE ANESTHESIA NONE PRE PROCEDURE NOTE THE PATIENT WITH HISTORY OF CHRONIC MIGRAINE HEADACHES. I EVALUATE THE PATIENT AND REVIEWED THE CHART. I WENT OVER THE RISKS, ALTERNATIVES, AND BENEFITS ASSOCIATED WITH THIS PROCEDURE. THE PATIENT WOULD LIKE TO PROCEED AND GIVE CONSENT TO PERFORMED THE PROCEDURE. THE PATIENT DENIES UNEXPLAINABLE WEIGHT LOSS, FEVER, CHILLS, OR NEW CHANGES IN URINARY OR BOWEL CONTROL. THE PATIENT EXPRESSED SUFFERING OF HEADACHES MORE THAN 16 DAYS OF THE MONTH. THESE HEADACHES LAST MORE THAN 4 HOURS PER DAY. THE PATIENT HAS USED THE MEDICATIONS LISTED IN THE CHART TO TREAT THE HEADACHES FOR MANY MONTHS AND THE HEADACHES PERSIST DESCRIBED ABOVE. SHE HAS DONE BOTOX IN THE PAST WITH GOOD PAIN RELIEF. THE LAST TIME SHE RECEIVED BOTOX WAS MORE THAN 6 MONTHS AGO. SHE WANT TO GO BACK TO RECEIVE BOTOX AGAIN. DESCRIPTION OF PROCEDURE THE PATIENTS WAS BROUGHT TO THE PROCEDURE ROOM AND PLACED IN THE SUPINE POSITION. I CHECKED LATERALITY AND THE AREAS WHERE THE PROCEDURE WAS GOING TO BE PERFORMED WITH THE PATIENT AND THE SUPPORTING STAFF AT THE MOMENT OF THE TIME OUT IN THE PROCEDURE ROOM. FOR THE PROCEDURE I USED A SOLUTION OF 5 UNITS OF BOTOX PER EACH 0.1 ML OF THE SOLUTION. I USED A 30-GAUGE NEEDLE TO INJECT THE SOLUTION AT THE SELECTED LOCATIONS. I INJECTED FIRST THE RIGHT AND LEFT RN PERINATAL MUSCLES. THE LANDMARK FOR BOTH INJECTIONS WAS APPROXIMATELY 1 CM ABOVE THE SUPERIOR MEDIAL EDGE OF THE EYEBROW. AFTER THESE TWO INJECTIONS, I INJECTED THE PROCERUS MUSCLE AT THE MIDLINE POINT BETWEEN THESE FIRST TWO INJECTIONS. THEN I PROCEEDED TO INJECT THE RIGHT AND LEFT FRONTALIS MUSCLE. TWO INJECTIONS WERE DONE IN EACH SIDE. THE FIRST INJECTION WAS DONE APPROXIMATELY 2 CM ABOVE THE FIRST INJECTION OF THE RN PERINATAL. THE SECOND INJECTION WAS DONE APPROXIMATELY 1.5 CM LATERAL TO THIS FIST INJECTION OF THE FRONTALIS OF EACH SIDE. AFTER THE INJECTIONS OVER THE FOREHEAD WERE DONE, THE PATIENT'S HEAD WAS TURNED TO THE LEFT SIDE AND WE STARTED TO WORK WITH THE RIGHT TEMPORALIS MUSCLE. FIRST INJECTION WAS DONE IN A VERTICAL LINE OF THE TRAGUS APPROXIMATELY 3 CM ABOVE THE TRAGUS. THE SECOND INJECTION WAS DONE APPROXIMATELY 2 CM ABOVE THE FIRST INJECTION. THE THIRD INJECTION WAS DONE APPROXIMATELY 1 CM FRONT EDMOND FROM THIS VERTICAL LINE CREATED AT THE LEVEL OF THE TRAGUS, SENIOR CARE BETWEEN THESE TWO INJECTIONS. THE FOURTH INJECTION WAS DONE APPROXIMATELY 1.5 CM BACK FROM THE SECOND INJECTION TO THE TEMPORALIS IN LINE TO THE MIDPORTION OF THE EAR. THEN, WE PROCEEDED TO INJECT THE LEFT TEMPORALIS MUSCLE. WE CLEANED THE AREA WITH ALCOHOL AND PROCEEDED TO PERFORM THE SAME FOR INJECTIONS DESCRIBED ABOVE BUT IN THE LEFT TEMPORALIS MUSCLE USING THE SAME LANDMARKS. AFTER THESE INJECTIONS WERE DONE, THE PATIENT WAS SEATED. FIRST, WE STARTED TO INJECT THE LEFT AND RIGHT OCCIPITALIS MUSCLE. I INJECTED AT THE FOLLOWING PLACES IN THE RIGHT AND LEFT MUSCLE. THE FIRST INJECTION WAS DONE AT THE MIDPOINT POSITION BETWEEN THE MASTOID PROCESS AND THE INION OF THE OCCIPITAL PROTUBERANCE. THE SECOND INJECTION WAS DONE APPROXIMATELY 1.5 CM SUPERIOR AND LATERAL OF THIS POINT. THE THIRD INJECTION WAS DONE APPROXIMATELY 1.5 CM SUPERIOR AND MEDIAL TO THIS FIRST INJECTION. THEN, I PROCEEDED TO INJECT THE RIGHT AND LEFT PARASPINAL MUSCLES. LANDMARK OF THE INJECTION WERE APPROXIMATELY: FIRST INJECTION 3 CM BELOW THE INION AND 1 CM LATERAL TO THE MIDLINE AND SECOND INJECTION AT EACH SIDE WAS DONE APPROXIMATELY 1.5 CM SUPERIOR AND LATERAL OF THE FIRST INJECTION. THE LAST GROUP OF INJECTIONS WAS DONE OVER THE RIGHT AND LEFT TRAPEZIUS MUSCLE OVER THE SHOULDERS AREA. THE FIRST INJECTION WAS DONE AT THE MIDPOINT BETWEEN THE INFLECTION POINT BETWEEN THE NECK AND SHOULDER AND THE ACROMION. THE SECOND AND THIRD INJECTIONS WERE DONE APPROXIMATELY 2.5 CM LATERAL AND MEDIAL FROM THIS FIRST INJECTION. SAME TARGETS WERE USED IN THE RIGHT AND LEFT SIDE. IN TOTAL, I INJECTED 155 UNITS OF BOTOX. PROCEDURE WAS DONE WITHOUT EVIDENCE OF PARESTHESIA, PNEUMOTHORAX, OR ANY COMPLICATIONS. THE PATIENT TOLERATED THE PROCEDURE VERY WELL. THE PATIENT WAS SENT TO THE RECOVERY ROOM FOR OBSERVATIONS. INJECTIONS WERE DONE AFTER CLEANING WITH ALCOHOL, USING ASEPTIC TECHNIQUES POST PROCEDURE NOTE THE PROCEDURE DONE WAS DISCUSSED WITH THE PATIENT. THE PATIENT WILL BE SEEN IN A FOLLOW UP IN THE NEXT FEW WEEKS. INSTRUCTIONS WERE GIVEN, QUESTIONS WERE ANSWERED, AND THE PATIENT EXPRESSED UNDERSTANDING AND AGREES WITH THE PLAN. I, MARTA VILLELA, DOCUMENTED THE ABOVE INFORMATION ACTING A SCRIBE FOR DR. ZEPEDA. I HAVE REVIEWED THE ABOVE DOCUMENT, WRITTEN BY MARTA KAISERIBKarissa AND I VERIFY THAT IT IS ACCURATE. PROCEDURE CODES 45018 CHEMODENERV MUSC MIGRAINE DISPOSITION & COMMUNICATION FOLLOW UP 3 WEEKS ELECTRONICALLY SIGNED BY HARRISON ZEPEDA MD, MD ON 04/15/2019 AT 01:49 PM EDT DISCLAIMER : THIS IS A VISIT SUMMARY EXTRACTED FROM THE [employer] CHART. IT IS NOT A COPY OF THE [employer] PROGRESS NOTE. MTDD
== END ==
LOC: M PAIN 11:30
PROVIDERS: ATTEND Anesthesiology
DX: G43.709 Chronic migraine without aura, not intractable, without status migrainosus (principal); M54.2 Cervicalgia; M54.5 Low back pain; F31.9 Bipolar disorder, unspecified; F41.9 Anxiety disorder, unspecified; F10.20 Alcohol dependence, uncomplicated; F17.210 Nicotine dependence, cigarettes, uncomplicated; J32.9 Chronic sinusitis, unspecified; I73.00 Raynaud's syndrome without gangrene; J45.909 Unspecified asthma, uncomplicated; G47.30 Sleep apnea, unspecified; Z98.84 Bariatric surgery status; Z79.899 Other long term (current) drug therapy; Z90.710 Acquired absence of both cervix and uterus; Z88.5 Allergy status to narcotic agent; Z88.8 Allergy status to other drugs, medicaments and biological substances; Z91.040 Latex allergy status
CPT/HCPCS: 64615; J0585

== ENCOUNTER → 2019-04-15 | Outpatient (REF) | payer OTHER ==
[~2019-04-15] MED LIST changes: -BOTULINUM INJ 100 UNITS (J0585) IM ONE; -diazePAM 5 MG TAB As Ordered ONE; -oxyCODONE 5MG TAB As Ordered ONE
[2019-04-15 20:19] LABS: APPEARANCE, URINE CLEAR (CLEAR); BACTERIA, URINE AUTO NEGATIVE (NEGATIVE); BILIRUBIN, URINE AUTO NEGATIVE (NEGATIVE); BLOOD, URINE BLOOD NEGATIVE (NEGATIVE); CALCIUM OXALATE CRYSTALS LARGE; COLOR, URINE YELLOW (YELLOW); GLUCOSE, URINE (UA) AUTO NEGATIVE (NEGATIVE); KETONE, URINE AUTO NEGATIVE (NEGATIVE); LEUKOCYTE ESTERASE, URINE AUTO NEGATIVE (NEGATIVE); MUCUS, URINE SMALL (NEGATIVE); NITRITE, URINE AUTO NEGATIVE (NEGATIVE); PROTEIN, URINE AUTO NEGATIVE (NEGATIVE); RBC, URINE AUTO 0 /HPF (0-3); SPECIFIC GRAVITY URINE AUTO 1.011 (1.002-1.035); SQUAMOUS EPITHELIAL CELL UR AU 0 /HPF (0-6); UROBILINOGEN, URINE AUTO 0.2 mg/dL (0.0-2.0); WBC, URINE AUTO 1 /HPF (0-3)
== END ==
LOC: M SFHCADAM 14:55
PROVIDERS: ATTEND Physician Assistant
DX: R35.0 Frequency of micturition (principal)

== ENCOUNTER → 2019-04-16 | Outpatient (CLI) | payer OTHER ==
[~2019-04-16] MED LIST changes: +BUPIVACAINE HCL 0.25% 10 ML VIAL As Ordered ONE; +BUPIVACAINE HCL 0.25% 30 ML VIAL As Ordered ONE; +TRIAMCINOLONE ACETONIDE SUSP 40 MG/ML VIAL (J3301) As Ordered ONE; +diazePAM 5 MG TAB As Ordered ONE; +oxyCODONE 5MG TAB As Ordered ONE
--- NOTE | 2019-04-20 01:18 | ECWPNPC ---
PATIENT NAME: ADELA ALMONTE : 1980 GENDER: FEMALE VISIT DATE: 04/16/2019 DISCHARGE DATE: 04/16/19 1341 VISIT LOCKED DATE TIME: PHYSICIAN: HARRISON ZEPEDA MD RESOURCE: HARRISON ZEPEDA MD REASON FOR APPOINTMENT 1. TPI THORACIC HISTORY OF PRESENT ILLNESS HISTORY OF PRESENT ILLNESS: PAIN THE PATIENT DESCRIBES THE PAIN... FALL RISK SCREENING: SCREENING :NO FALLS REPORTED IN THE LAST YEAR CURRENT MEDICATIONS TAKING IMITREX 4 MG/0.5ML SOLUTION 1 INJECTION NEEDED AT THE ONSET OF A MIGRAINE SUBCUTANEOUS REPEAT TIMES ONE IF NOT EFFECTIVE (DR JC), NOTES: > 1 WEEK TAKING NARATRIPTAN HCL 2.5 MG TABLET 1 TABLET NEEDED ONE TIME AT ONSET OF MIGRAINE ORALLY MAY REPEAT IN 2 HRS ONCE A DAY MDD2, NOTES: > 1 WEEK TAKING POTASSIUM CHLORIDE ER 20 MEQ TABLET EXTENDED RELEASE 1 TABLET WITH FOOD ORALLY ONCE A DAY, NOTES: 04/14/19 TAKING CUVITRU 4 GM/20ML SOLUTION 11 GRAMS SUBCUTANEOUS WEEKLY, NOTES: 04/09/19 TAKING BUSPIRONE HCL 30 MG TABLET 1 TABLET ORALLY TWICE A DAY, NOTES: 04/16/19 0500 TAKING VYVANSE 70 MG CAPSULE 1 CAPSULE IN THE MORNING ORALLY ONCE A DAY, NOTES: 04/16/19 050 TAKING VRAYLAR 3 MG CAPSULE 1 CAPSULE ORALLY ONCE A DAY, NOTES: 04/15/19 2100 TAKING FLUTICASONE PROPIONATE 50 MCG/ACT SUSPENSION 1 SPRAY IN EACH NOSTRIL NASALLY ONCE A DAY, NOTES: 04/15/19 0700 TAKING CLARITIN 10 MG TABLET 1 TABLET ORALLY ONCE A DAY, NOTES: 04/16/19 0500 TAKING ALBUTEROL SULFATE (2.5 MG/3ML) 0.083% NEBULIZATION SOLUTION 1 VIAL INHALATION EVERY 6 HRS PRN, NOTES: > 1 MONTH TAKING KETOCONAZOLE 2 % CREAM 1 APPLICATION TO AFFECTED AREA EXTERNALLY ONCE A DAY TO BOTH FEET, NOTES: > 1 WEEK TAKING PHENERGAN 25 MG TABLET 1 TABLET ORALLY EVERY 6 HRS PRN NAUSEA, NOTES: 04/16/19 0500 TAKING ACETAMINOPHEN 500 MG CAPSULE 1 CAPSULES NEEDED ORALLY EVERY 6 HRS PRN, NOTES: > 1 WEEK TAKING IBUPROFEN 800 MG TABLET 1 TABLET WITH FOOD OR MILK NEEDED ORALLY THREE TIMES A DAY NEEDED FOR SEVERE HEADACHES, NOTES: > 1 MONTH TAKING AMMONIUM LACTATE 10 % LOTION 1 APPLICATION TO AFFECTED AREA EXTERNALLY TWICE A DAY, NOTES: 04/14/19 TAKING ESTRADIOL 0.025 MG/24HR PATCH TWICE WEEKLY 1 PATCH TO SKIN TRANSDERMAL TWO TIMES A WEEK, NOTES: TAKING LOSARTAN POTASSIUM 25 MG TABLET 1 TABLET ORALLY ONCE A DAY, NOTES: 499 TAKING NIFEDIPINE 20 MG CAPSULE 1 CAPSULE ORALLY DAILY, NOTES: 499 TAKING TIZANIDINE HCL 4 MG TABLET 1 TABLET NEEDED ORALLY FOR SPASMS AND PAIN Q8H PRN MDD3, NOTES: 499 TAKING HYDROXYZINE HCL 10 MG TABLET DIRECTED ORALLY FOUR TIMES DAILY, NOTES: 04-05-19499 TAKING LYRICA 200 MG CAPSULE 1 CAPSULE ORALLY THREE TIMES A DAY MDD3, NOTES: 04-16-19499 TAKING BELBUCA 150 MCG FILM 1 FILM TO THE GUM BUCALLY EVERY 12 HRS, NOTES: 04-16-19499 TAKING VENTOLIN HFA 108 (90 BASE) MCG/ACT AEROSOL SOLUTION 2 PUFFS NEEDED INHALATION EVERY 4 HRS PRN, NOTES: 04-12-19499 TAKING PROTONIX 40 MG TABLET DELAYED RELEASE 1 TABLET ORALLY DAILY, NOTES: 04-16-19499 TAKING MOVANTIK 25 MG TABLET 1 TABLET IN THE MORNING ORALLY ONCE A DAY, NOTES: 04/16/19499 NOT-TAKING DOXYCYCLINE HYCLATE 100 MG TABLET 1 TABLET ORALLY TWICE A DAY, NOTES: 04-06-19499 NOT-TAKING LASIX 20 MG TABLET 1 TABLET ORALLY ONCE A DAY, NOTES: 12-29-18499 NOT-TAKING TRILEPTAL 300 MG TABLET 1 TABLET ORALLY TWICE A DAY, NOTES: 05012-29-18 NOT-TAKING CHANTIX 1 MG 1 TAB ORAL BID, NOTES: 12-29-18499 MEDICATION LIST REVIEWED AND RECONCILED WITH THE PATIENT PAST MEDICAL HISTORY SURGICAL MENOPAUSE S/P ELIA & BSO 2009 CHRONIC NECK/MID/LOW BACK PAIN PEPTIC ULCER DISEASE, S/P GASTRIC BYPASS - ON PROTONIX AND CARAFATE BY DR. MILLER BIPOLAR, ANXIETY, DEPRESSION - FOLLWS WITH DR. OTERO ALCOHOLISM MIGRAINE HEADACHES TOBACCO USE ADD CHRONIC RHINITIS/SINUSITIS RAYNAUD'S SYNDROME COMMON VARIABLE IMMUNO DEFICIENCY DISEASE ASTHMA HEART MURMUR - ECHO 10/2017 BORDERLINE LVH, MILD LAE, SUBTLE AV SCLEROSIS, AORTIC SCLEROSIS, MILD AR, MILD MR SLEEP APNEA WITH BIPAP S/P GASTRIC BYPASS FAINTING SPELLS ALLERGIES MORPHINE: , DIFF. BREATHING - ALLERGY LATEX: HIVES - ALLERGY DILAUDID: HIVES, DIFF. BREATHING - ALLERGY REGLAN: HIVES - ALLERGY LAMICTAL: HIVES - ALLERGY DEPAKOTE: CONFUSION - CONTRAINDICATION RISPERDAL: SUICIDAL IDEATION - ALLERGY KETOROLAC TROMETHAMINE: ANAPHYLAXIS - ALLERGY MUSCLE RELAXERS: ALTERED MENTAL STATUS - SIDE EFFECTS GASTROGRAFIN: HIVES - ALLERGY SURGICAL HISTORY LUMBAR LAMINECTOMY [place] 02/11 BACK SURGERY 1997 LAPAROTOMY X 4...CARTHAGE....DR. CRISTOBAL CHOLECYSTECTOMY 07/13 ELIA W/ AGUDELO, APPENDECTOMY - FOR ENDOMETRIOSIS 12/13 GASTRIC BYPASS (DR. CARTAGENA, [facility]) 01/2012 LAPAROSCOPY AND REMOVAL OF ADHESIONS (DR. BARRERA) 12/2012 CHEST TUBE ENDOSCOPY/COLONOSCOPY BLOOD TRANSFUSION BLADDER REPAIR 10/2016 LAPROSCOPC SURGERY FOR ENDOMETRIOSIS / LYSIS OF ADHESIONS AND SCAR TISSUE (BOWEL NICKED IN OR). 12/19/17 EGD - ESOPHAGEAL PLAQUE - BIOPSY RESULTS NOT SENT TO US (DR. MILLER) 05/2018 REMOVAL CYSTS IN BILATERAL EARS REMOVAL OF NEEDLE FROM RIGHT FOOT FAMILY HISTORY FATHER: ALIVE, DIAGNOSED WITH STROKE, CANCER MOTHER: ALIVE, HEART DISEASE, DIABETES, HYPERTENSION FATHER SKIN CANCER\\\\\\\\NSISTER WITH HOSHIMOTO\\\\\\\\\\\\\\'S. SOCIAL HISTORY GENERAL: TOBACCO USE ARE YOU A:CURRENT SMOKER ARE YOU INTERESTED IN QUITTING?NOT READY TO QUIT NO LONGER TAKING CHANTIX COUNSELED THE PATIENT ON SMOKING EFFECTS, EDUCATION VERHSAAM72/12/2019 HOW MANY CIGARETTES A DAY DO YOU SMOKE?11-20 HOW SOON AFTER YOU WAKE UP DO YOU SMOKE YOUR FIRST CIGARETTE?AFTER 60 MIN HOW OFTEN DO YOU SMOKE CIGARETTES?EVERY DAY PATIENT COUNSELED ON THE DANGERS OF TOBACCO USE AND URGED TO QUIT:04/16/2019 HIV / HEP-C SCREENING HIV TEST OFFERED TO PATIENT:YES DATE OFFERED:03/13/2017 TEST ACCEPTED:NO HEP-C TEST OFFERED TO PATIENT:NO REASON:PATIENT DECLINED EDUCATION LEVEL OF EDUCATION:NOT FINISHED COLLEGE DIET: REGULAR. LANGUAGE LANGUAGES SPOKEN:TELUGU DOMESTIC VIOLENCE DO YOU FEEL SAFE IN YOUR ENVIRONMENT?YES BMI CARE GOAL FOLLOW-UP ABOVE NORMAL BMI FOLLOW-UPDIETARY MANAGEMENT EDUCATION, GUIDANCE, AND COUNSELING, DIETARY NEEDS EDUCATION, EXERCISE PROMOTION: STRENGTH TRAINING RECREATIONAL DRUG USE DRUG USE?NO EXERCISE: NO REGULAR EXERCISE. LEARNING BARRIERS / SPECIAL NEEDS CHANGE FROM LAST VISIT?NO BARRIERS TO LEARNING?NO HEARING IMPAIRED?NO VISION IMPAIRED?NO COGNITIVELY IMPAIRED?NO READINESS TO LEARN?YES LEARNING PREFERENCES?NO LEARNING CAPABILITIES PRESENT?YES EMOTIONAL BARRIERS?NO SPECIAL DEVICES?NO COMMERCIAL LOAN ANALYST NEEDED?NO LUNG CANCER SCREENING SMOKING STATUS:CURRENT SMOKER PAIN CLINIC PFS, CLERGY, PUBLIC HEALTH REFERRALS PFS REFERRAL NEEDED?NO CLERGY REFERRAL NEEDED?NO PUBLIC HEALTH REFERRAL NEEDED?NO WAS THE PROVIDER NOTIFIED OF ANY PERTINENT INFO? N/A HAS THE PATIENT BEEN EDUCATED REGARDING HIS/HER PLAN OF CARE?YES HAS THE PATIENT BEEN EDUCATED REGARDING PAIN, THE RISK FOR PAIN, THE IMPORTANCE OF EFFECTIVE PAIN MANAGEMENT, AND THE PAIN ASSESSMENT PROCESS?YES LATEX QUESTIONNAIRE LATEX ALLERGY : HAVE YOU EVER DEVELOPED ANY TYPE OF REACTION AFTER HANDLING LATEX PRODUCTS SUCH RUBBER GLOVES, CONDOMS, DIAPHRAGMS, BALLOONS, SOCKS, OR UNDERWEAR?YES LATEX ALLERGY : HAVE YOU EVER DEVELOPED ANY TYPE OF REACTION DURING OR AFTER DENTAL APPOINTMENT, VAGINAL/RECTAL EXAMINATION, SURGICAL PROCEDURE, OR ANY OTHER EXPOSURE?YES - PLEASE INDICATE :RUBBER GLOVES, CONDOMS, UNDERWEAR, OTHER (DOCUMENT IN NOTES) BRAS - PLEASE INDICATE :VAGINAL EXAM DATE ASKED : 12/07/2018 LATEX RISK : HAVE YOU EVER HAD ANY DIFFICULTY BREATHING OR HIVES AFTER EATING OR HANDLING ANY FRUITS, OR VEGETABLES; SUCH KIWI, BANANAS, STONE FRUITS, OR CHESTNUTSNO LATEX RISK : DO YOU HAVE A PREVIOUS PERSONAL HISTORY OF MORE THAN NINE SURGERIES, SPINA BIFIDA, OR REPEATED CATHERTIZATIONS? YES - PLEASE INDICATE : > 9 SURGERIES LATEX RISK : ARE YOU FREQUENTLY EXPOSED TO LATEX PRODUCTS IN YOUR OCCUPATION?NO CAFFEINE CAFFEINE USE?YES 2-3 CUPS COFFEE & ICED TEA THROUGH THE DAY. ADVANCE DIRECTIVE ADVANCE DIRECTIVE DISCUSSED WITH PATIENT:YES PT. DOES NOT HAVE ANY ADVANCED DIREDCTIVES AND SHE DECLINES INFORMATION ON HCP AT THIS TIME.04/16/19 1204 LAS SCIENTOLOGY [id number] MU-ISM MARITAL STATUS: SINGLE. ALCOHOL SCREENING DID YOU HAVE A DRINK CONTAINING ALCOHOL IN THE PAST YEAR?NO POINTS0 INTERPRETATIONNEGATIVE OCCUPATION: UNEMPLOYED. SEXUAL HX HAD SEX IN THE LAST 12 MONTHS (VAGINAL, ORAL, OR ANAL)?NO LMP:2009 HAVE YOU EVER HAD AN STD?NO REVIEWED WITH PT 06/23/18 1154 BVREVIEWED WITH PATIENT 07/07/18 1158 JS11/05/18 REVIEWED WITH PT. AD12/07/18 REVIEWED WITH PT. AD04/16/19 REVIEWED WITH PT 1204 KEITH. HOSPITALIZATION/MAJOR DIAGNOSTIC PROCEDURE SURGERY RELATED [facility] ([facility]) 05/2012 ADMITTED TO [facility] 12/2015 [facility] 10/2015 [facility] 2 DAY HOSPITAL STAY DUE TO NICKED BOWEL 12/19/2017 PNEUMONIA 07/2018 REVIEW OF SYSTEMS REVIEWED BY: PROVIDER: . CONSTITUTIONAL: ANY CHANGE IN YOUR MEDICAL CONDITION? NO . CHILLS NO . FEVER NO . INFECTION: DO YOU HAVE NEW INFECTIONS? NO . DO YOU HAVE HISTORY OF MRSA? YES NOT CURRENTLY ACTIVE . MUSCULOSKELETAL: ANY NEW PATTERNS OF PAIN OR NUMBNESS? NO . GASTROENTEROLOGY: ANY NEW CHANGE IN BOWEL CONTROL? NO . GENITOURINARY: ANY NEW CHANGE IN BLADDER CONTROL? NO . IS THERE A CHANCE YOU COULD BE ? NO . HEMATOLOGY/LYMPH: DO YOU TAKE ANY BLOOD THINNERS? (FOR EXAMPLE- COUMADIN, PLAVIX, AGGRENOX, PLATEL, PRADAXA, OR XARELTO) NO . WHEN WAS YOUR LAST DOSE? DATE: TIME: . NEUROLOGY: HAVE YOU FALLEN IN THE PAST 12 MONTHS? NO . ANY NEW EXTREMITY NUMBNESS OR WEAKNESS? NO . CARDIOLOGY: DO YOU HAVE A PACEMAKER OR DEFIBRILLATOR? NO . RESPIRATORY: HAVE YOU BEEN SICK IN THE PAST WEEK? NO . FEVER NO . FLU LIKE SYMPTOMS? NO . COUGH NO . INTEGUMENTARY: DO YOU HAVE ANY RASHES OR OPEN SORES? YES RIGHT CALF HAS A 1.5 INCH REDDENED AREA AROUND A SMALL OPEN AREA IN THE CENTER ? A BUG BITE. SAW HER PRIMARY FOR IT TO CHECK FOR LYME, NOW IS BEING REFERRED TO A PARLOR CHAPERONE. . ALLERGIC/IMMUNO: ARE YOU ALLERGIC TO IV DYE? NO . ANY NEW ALLERGIES? NO . PSYCHIATRIC: DO YOU HAVE THOUGHTS OF HURTING YOURSELF OR SOMEONE ELSE? NO . ARE YOU ABUSED, NEGLECTED, OR IN AN UNSAFE ENVIRONMENT? NO . ENDOCRINOLOGY: ARE YOU DIABETIC? NO . OTHER: DO YOU NEED ANY PRESCRIPTIONS? NO . IF YES, PLEASE LIST: ____ . ANY NEW PROBLEMS WITH YOUR MEDICATIONS? NO . WHEN DID YOU LAST EAT? ____04/15/19 1900 . WHEN DID YOU LAST DRINK? ____04/16/19 0500 . WHAT DID YOU LAST DRINK? ____WATER . NAME OF PERSON DRIVING YOU HOME? ____[employer] . DO YOU HAVE ANY OTHER QUESTIONS OR CONCERNS NO . VITAL SIGNS WT 200.4 LBS, HT 67", BMI 31.38 INDEX, BP 114/59 MM HG, HR 102 /MIN, RR 18 /MIN, TEMP 96.8 F, OXYGEN SAT % 97%, SAFE IN ENV? (Y/N) YES, NA INITIALS AW 1125, REVIEWED BY: KEITH. ASSESSMENTS MYALGIA, OTHER SITE - M79.18 (PRIMARY) PROCEDURES PN TRIGGER POINT INJECTION WITH STEROIDS PRE PROCEDURE DIAGNOSIS 1. MYALGIA 2. PAIN AT BILATERAL THORACIC AREA POST PROCEDURE DIAGNOSIS 1. MYALGIA 2. PAIN AT BILATERAL THORACIC AREA PROCEDURE TRIGGER POINT INJECTION AT BILATERAL THORACIC AREA SURGEON DR. HARRISON ZEPEDA COKE OVEN PATCHER NONE ANESTHESIA LOCAL PRE PROCEDURE NOTE THE PATIENT HAS A HISTORY OF CHRONIC PAIN AT THE RIGHT AND LEFT THORACIC AREA. I EVALUATE THE PATIENT AND REVIEWED THE CHART. THERE IS EVIDENCE OF BANDS OF TISSUE WITH RESTRICTION OF MOVEMENT AND PRESENCE OF TRIGGER POINT AT THE AFFECTED AREA. I WENT OVER THE RISKS, ALTERNATIVES, AND BENEFITS ASSOCIATED WITH THIS PROCEDURE. THE PATIENT WOULD LIKE TO PROCEED AND GIVE CONSENT TO PERFORMED THE PROCEDURE. THE PATIENT DENIES UNEXPLAINABLE WEIGHT LOSS, FEVER, CHILLS, OR NEW CHANGES IN URINARY OR BOWEL CONTROL DESCRIPTION OF PROCEDURE THE PATIENT WAS BROUGHT TO THE PROCEDURE ROOM AND PLACED IN THE SITTING POSITION. THE AREA WAS CLEANED WITH ALCOHOL. THE PROCEDURE WAS DONE USING ASEPTIC STERILE TECHNIQUE. I CHECKED LATERALITY AND THE LEVEL WHERE THE PROCEDURE WAS GOING TO BE PERFORMED WITH THE PATIENT AND THE SUPPORTING STAFF AT THE MOMENT OF THE TIME OUT IN THE PROCEDURE ROOM. USING A 25-GAUGE NEEDLE, TRIGGER POINTS WERE INJECTED AT THE RIGHT AND LEFT THORACIC AREA WITH A TOTAL OF 40 ML OF BUPIVACAINE 0.25% AND KENALOG 40 MG. THERE WAS NO EVIDENCE OF BLOOD, PARESTHESIA OR CEREBROSPINAL FLUID DURING THE PROCEDURE. THE PATIENT WAS SENT TO THE RECOVERY ROOM. THE PATIENT WAS MOVING THE EXTREMITIES AND DOING WELL. THERE WAS NO COMPLICATION DURING THE PROCEDURE POST PROCEDURE NOTE THE PATIENT WILL BE SEEN IN A FOLLOW UP IN THE NEXT FEW WEEKS. INSTRUCTIONS WERE GIVEN, QUESTIONS WERE ANSWERED, AND THE PATIENT EXPRESSED UNDERSTANDING AND AGREES WITH THE PLAN. I, MARTA VILLELA, DOCUMENTED THE ABOVE INFORMATION ACTING A SCRIBE FOR DR. ZEPEDA. I HAVE REVIEWED THE ABOVE DOCUMENT, WRITTEN BY MARTA NUÑEZ AND I VERIFY THAT IT IS ACCURATE. PROCEDURE CODES 97979 INJ TRIGGER POINT 10/07 [facility] [place] [facility]UNICATION FOLLOW UP 3 WEEKS ELECTRONICALLY SIGNED BY HARRISON ZEPEDA MD, MD ON 04/19/2019 AT 01:37 PM EDT DISCLAIMER : THIS IS A VISIT SUMMARY EXTRACTED FROM THE [employer] CHART. IT IS NOT A COPY OF THE [employer] PROGRESS NOTE. GELACIO
== END ==
LOC: M PAIN 11:30
PROVIDERS: ATTEND Anesthesiology
DX: M79.18 Myalgia, other site (principal); M54.2 Cervicalgia; M54.5 Low back pain; F31.9 Bipolar disorder, unspecified; F41.9 Anxiety disorder, unspecified; K28.9 Gastrojejunal ulcer, unspecified as acute or chronic, without hemorrhage or perforation; F10.20 Alcohol dependence, uncomplicated; G43.909 Migraine, unspecified, not intractable, without status migrainosus; D83.9 Common variable immunodeficiency, unspecified; F17.210 Nicotine dependence, cigarettes, uncomplicated; I73.00 Raynaud's syndrome without gangrene; J32.9 Chronic sinusitis, unspecified; J45.909 Unspecified asthma, uncomplicated; G47.33 Obstructive sleep apnea (adult) (pediatric); Z98.84 Bariatric surgery status; Z90.49 Acquired absence of other specified parts of digestive tract; Z90.710 Acquired absence of both cervix and uterus; Z88.5 Allergy status to narcotic agent; Z88.8 Allergy status to other drugs, medicaments and biological substances; Z91.040 Latex allergy status
CPT/HCPCS: 20552; J3301

== ENCOUNTER → 2019-04-29 | Outpatient (CLI) | payer OTHER ==
[~2019-04-29] MED LIST changes: -BUPIVACAINE HCL 0.25% 10 ML VIAL As Ordered ONE; +LIDOCAINE 1% SDV INJ 30 ML VIAL As Ordered ONE; -diazePAM 5 MG TAB As Ordered ONE; -oxyCODONE 5MG TAB As Ordered ONE
--- NOTE | 2019-04-29 17:25 | REP ---
FACET BLOCK The images were reviewed with Dr. mendes. The patient has a history of pain. The portable C-arm was provided in the OR for Dr. Alesha Bales for fluoroscopic guidance. Five intraoperative last image hold fluoro spot films were obtained for needle placement verification for right lumbar radiofrequency ablation. The films are on the PACS system and are available for review. 58 seconds of fluoroscopy time was utilized for this procedure. Reviewed by MADY Lopez 04/29/2019 04:42 P Electronically Signed by Chava Mendes MD 04/29/2019 05:16 P
--- NOTE | 2019-05-08 01:06 | ECWPNPC ---
PATIENT NAME: ADELA ALMONTE : 1980 GENDER: FEMALE VISIT DATE: 04/29/2019 DISCHARGE DATE: 04/29/19 1557 VISIT LOCKED DATE TIME: PHYSICIAN: HARRISON ZEPEDA MD RESOURCE: HARRISON ZEPEDA MD REASON FOR APPOINTMENT 1. RF BLOCK HISTORY OF PRESENT ILLNESS HISTORY OF PRESENT ILLNESS: PAIN THE PATIENT DESCRIBES THE PAIN... FALL RISK SCREENING: SCREENING :NO FALLS REPORTED IN THE LAST YEAR CURRENT MEDICATIONS TAKING IMITREX 4 MG/0.5ML SOLUTION 1 INJECTION NEEDED AT THE ONSET OF A MIGRAINE SUBCUTANEOUS REPEAT TIMES ONE IF NOT EFFECTIVE (DR JC), NOTES: > 1 WEEK TAKING NARATRIPTAN HCL 2.5 MG TABLET 1 TABLET NEEDED ONE TIME AT ONSET OF MIGRAINE ORALLY MAY REPEAT IN 2 HRS ONCE A DAY MDD2, NOTES: > 1 WEEK TAKING POTASSIUM CHLORIDE ER 20 MEQ TABLET EXTENDED RELEASE 1 TABLET WITH FOOD ORALLY ONCE A DAY, NOTES: >1 WEEK TAKING CUVITRU 4 GM/20ML SOLUTION 11 GRAMS SUBCUTANEOUS WEEKLY, NOTES: 1 WEEK AGO TAKING BUSPIRONE HCL 30 MG TABLET 1 TABLET ORALLY TWICE A DAY, NOTES: 0600 TAKING VYVANSE 70 MG CAPSULE 1 CAPSULE IN THE MORNING ORALLY ONCE A DAY, NOTES: 04/28/19@0700 TAKING VRAYLAR 3 MG CAPSULE 1 CAPSULE ORALLY ONCE A DAY, NOTES: 04/28/19@2000 TAKING FLUTICASONE PROPIONATE 50 MCG/ACT SUSPENSION 1 SPRAY IN EACH NOSTRIL NASALLY ONCE A DAY, NOTES: 04/28/19@0700 TAKING CLARITIN 10 MG TABLET 1 TABLET ORALLY ONCE A DAY, NOTES: 0600 TAKING ALBUTEROL SULFATE (2.5 MG/3ML) 0.083% NEBULIZATION SOLUTION 1 VIAL INHALATION EVERY 6 HRS PRN, NOTES: > 1 MONTH TAKING KETOCONAZOLE 2 % CREAM 1 APPLICATION TO AFFECTED AREA EXTERNALLY ONCE A DAY TO BOTH FEET, NOTES: > 1 WEEK TAKING PHENERGAN 25 MG TABLET 1 TABLET ORALLY EVERY 6 HRS PRN NAUSEA, NOTES: 0600 TAKING ACETAMINOPHEN 500 MG CAPSULE 1 CAPSULES NEEDED ORALLY EVERY 6 HRS PRN, NOTES: > 1 MONTH TAKING IBUPROFEN 800 MG TABLET 1 TABLET WITH FOOD OR MILK NEEDED ORALLY THREE TIMES A DAY NEEDED FOR SEVERE HEADACHES, NOTES: > 1 MONTH TAKING AMMONIUM LACTATE 10 % LOTION 1 APPLICATION TO AFFECTED AREA EXTERNALLY TWICE A DAY, NOTES: WEEK AGO TAKING ESTRADIOL 0.025 MG/24HR PATCH TWICE WEEKLY 1 PATCH TO SKIN TRANSDERMAL TWO TIMES A WEEK, NOTES: @1300 TAKING LOSARTAN POTASSIUM 25 MG TABLET 1 TABLET ORALLY ONCE A DAY, NOTES: 0600 TAKING NIFEDIPINE 20 MG CAPSULE 1 CAPSULE ORALLY DAILY, NOTES: 0600 TAKING HYDROXYZINE HCL 10 MG TABLET DIRECTED ORALLY FOUR TIMES DAILY, NOTES: 1 WEEK AGO TAKING VENTOLIN HFA 108 (90 BASE) MCG/ACT AEROSOL SOLUTION 2 PUFFS NEEDED INHALATION EVERY 4 HRS PRN, NOTES: 1 WEEK AGO TAKING PROTONIX 40 MG TABLET DELAYED RELEASE 1 TABLET ORALLY DAILY, NOTES: 0600 TAKING MOVANTIK 25 MG TABLET 1 TABLET IN THE MORNING ORALLY ONCE A DAY, NOTES: 0600 TAKING TIZANIDINE HCL 4 MG TABLET 1 TABLET NEEDED ORALLY FOR SPASMS AND PAIN Q8H PRN MDD3, NOTES: 04/28/19@2000 TAKING LYRICA 200 MG CAPSULE 1 CAPSULE ORALLY THREE TIMES A DAY MDD3, NOTES: 0600 TAKING BELBUCA 150 MCG FILM 1 FILM TO THE GUM BUCALLY EVERY 12 HRS, NOTES: 0600 TAKING LASIX 20 MG TABLET 1 TABLET ORALLY ONCE A DAY, NOTES: 0600 DISCONTINUED DOXYCYCLINE HYCLATE 100 MG TABLET 1 TABLET ORALLY TWICE A DAY, NOTES: 04-06-19 0500 DISCONTINUED TRILEPTAL 300 MG TABLET 1 TABLET ORALLY TWICE A DAY, NOTES: 0500 12-29-18 DISCONTINUED CHANTIX 1 MG 1 TAB ORAL BID, NOTES: 12-29-18 0500 MEDICATION LIST REVIEWED AND RECONCILED WITH THE PATIENT PAST MEDICAL HISTORY SURGICAL MENOPAUSE S/P ELIA & BSO 2009 CHRONIC NECK/MID/LOW BACK PAIN PEPTIC ULCER DISEASE, S/P GASTRIC BYPASS - ON PROTONIX AND CARAFATE BY DR. MILLER BIPOLAR, ANXIETY, DEPRESSION - FOLLWS WITH DR. OTERO ALCOHOLISM MIGRAINE HEADACHES TOBACCO USE ADD CHRONIC RHINITIS/SINUSITIS RAYNAUD'S SYNDROME COMMON VARIABLE IMMUNO DEFICIENCY DISEASE ASTHMA HEART MURMUR - ECHO 10/2017 BORDERLINE LVH, MILD LAE, SUBTLE AV SCLEROSIS, AORTIC SCLEROSIS, MILD AR, MILD MR SLEEP APNEA WITH BIPAP S/P GASTRIC BYPASS FAINTING SPELLS ALLERGIES MORPHINE: , DIFF. BREATHING - ALLERGY LATEX: HIVES - ALLERGY DILAUDID: HIVES, DIFF. BREATHING - ALLERGY REGLAN: HIVES - ALLERGY LAMICTAL: HIVES - ALLERGY DEPAKOTE: CONFUSION - CONTRAINDICATION RISPERDAL: SUICIDAL IDEATION - ALLERGY KETOROLAC TROMETHAMINE: ANAPHYLAXIS - ALLERGY MUSCLE RELAXERS: ALTERED MENTAL STATUS - SIDE EFFECTS GASTROGRAFIN: HIVES - ALLERGY SURGICAL HISTORY LUMBAR LAMINECTOMY SYRACUSE 02/11 BACK SURGERY 1997 LAPAROTOMY X 4...CARTHAGE....DR. CRISTOBAL CHOLECYSTECTOMY 07/13 ELIA W/ AGUDELO, APPENDECTOMY - FOR ENDOMETRIOSIS 12/13 GASTRIC BYPASS (DR. CARTAGENA, [facility]) 01/2012 LAPAROSCOPY AND REMOVAL OF ADHESIONS (DR. BARRERA) 12/2012 CHEST TUBE ENDOSCOPY/COLONOSCOPY BLOOD TRANSFUSION BLADDER REPAIR 10/2016 LAPROSCOPC SURGERY FOR ENDOMETRIOSIS / LYSIS OF ADHESIONS AND SCAR TISSUE (BOWEL NICKED IN OR). 12/19/17 EGD - ESOPHAGEAL PLAQUE - BIOPSY RESULTS NOT SENT TO US (DR. MILLER) 05/2018 REMOVAL CYSTS IN BILATERAL EARS REMOVAL OF NEEDLE FROM RIGHT FOOT FAMILY HISTORY FATHER: ALIVE, DIAGNOSED WITH STROKE, CANCER MOTHER: ALIVE, HEART DISEASE, DIABETES, HYPERTENSION FATHER SKIN CANCER\\\\\\\\NSISTER WITH HOSHIMOTO\\\\\\\\\\\\\\'S. SOCIAL HISTORY GENERAL: TOBACCO USE ARE YOU A:CURRENT SMOKER ARE YOU INTERESTED IN QUITTING?NOT READY TO QUIT NO LONGER TAKING CHANTIX COUNSELED THE PATIENT ON SMOKING EFFECTS, EDUCATION [id number]/25/2019 HOW MANY CIGARETTES A DAY DO YOU SMOKE?11-20 HOW SOON AFTER YOU WAKE UP DO YOU SMOKE YOUR FIRST CIGARETTE?AFTER 60 MIN HOW OFTEN DO YOU SMOKE CIGARETTES?EVERY DAY PATIENT COUNSELED ON THE DANGERS OF TOBACCO USE AND URGED TO QUIT:04/29/2019 HIV / HEP-C SCREENING HIV TEST OFFERED TO PATIENT:YES DATE OFFERED:03/13/2017 TEST ACCEPTED:NO HEP-C TEST OFFERED TO PATIENT:NO REASON:PATIENT DECLINED EDUCATION LEVEL OF EDUCATION:NOT FINISHED COLLEGE DIET: REGULAR. LANGUAGE LANGUAGES SPOKEN:FRISIAN DOMESTIC VIOLENCE DO YOU FEEL SAFE IN YOUR ENVIRONMENT?YES BMI CARE GOAL FOLLOW-UP ABOVE NORMAL BMI FOLLOW-UPDIETARY MANAGEMENT EDUCATION, GUIDANCE, AND COUNSELING, DIETARY NEEDS EDUCATION, EXERCISE PROMOTION: STRENGTH TRAINING RECREATIONAL DRUG USE DRUG USE?NO EXERCISE: NO REGULAR EXERCISE. LEARNING BARRIERS / SPECIAL NEEDS CHANGE FROM LAST VISIT?NO BARRIERS TO LEARNING?NO HEARING IMPAIRED?NO VISION IMPAIRED?NO COGNITIVELY IMPAIRED?NO READINESS TO LEARN?YES LEARNING PREFERENCES?NO LEARNING CAPABILITIES PRESENT?YES EMOTIONAL BARRIERS?NO SPECIAL DEVICES?NO CARPENTER SUPERVISOR NEEDED?NO LUNG CANCER SCREENING SMOKING STATUS:CURRENT SMOKER PAIN CLINIC PFS, CLERGY, PUBLIC HEALTH REFERRALS PFS REFERRAL NEEDED?NO CLERGY REFERRAL NEEDED?NO PUBLIC HEALTH REFERRAL NEEDED?NO WAS THE PROVIDER NOTIFIED OF ANY PERTINENT INFO? N/A HAS THE PATIENT BEEN EDUCATED REGARDING HIS/HER PLAN OF CARE?YES HAS THE PATIENT BEEN EDUCATED REGARDING PAIN, THE RISK FOR PAIN, THE IMPORTANCE OF EFFECTIVE PAIN MANAGEMENT, AND THE PAIN ASSESSMENT PROCESS?YES LATEX QUESTIONNAIRE LATEX ALLERGY : HAVE YOU EVER DEVELOPED ANY TYPE OF REACTION AFTER HANDLING LATEX PRODUCTS SUCH RUBBER GLOVES, CONDOMS, DIAPHRAGMS, BALLOONS, SOCKS, OR UNDERWEAR?YES - PLEASE INDICATE :RUBBER GLOVES, CONDOMS, UNDERWEAR, OTHER (DOCUMENT IN NOTES) BRAS LATEX ALLERGY : HAVE YOU EVER DEVELOPED ANY TYPE OF REACTION DURING OR AFTER DENTAL APPOINTMENT, VAGINAL/RECTAL EXAMINATION, SURGICAL PROCEDURE, OR ANY OTHER EXPOSURE?YES - PLEASE INDICATE :VAGINAL EXAM LATEX RISK : HAVE YOU EVER HAD ANY DIFFICULTY BREATHING OR HIVES AFTER EATING OR HANDLING ANY FRUITS, OR VEGETABLES; SUCH KIWI, BANANAS, STONE FRUITS, OR CHESTNUTSNO LATEX RISK : DO YOU HAVE A PREVIOUS PERSONAL HISTORY OF MORE THAN NINE SURGERIES, SPINA BIFIDA, OR REPEATED CATHERIZATIONS? YES - PLEASE INDICATE : > 9 SURGERIES LATEX RISK : ARE YOU FREQUENTLY EXPOSED TO LATEX PRODUCTS IN YOUR OCCUPATION?NO DATE ASKED : 04/29/2019 CAFFEINE CAFFEINE USE?YES 2-3 CUPS COFFEE & ICED TEA THROUGH THE DAY. ADVANCE DIRECTIVE ADVANCE DIRECTIVE DISCUSSED WITH PATIENT:YES PT. DOES NOT HAVE ANY ADVANCED DIREDCTIVES AND SHE DECLINES INFORMATION ON HCP AT THIS TIME.04/16/19 1204 KEITH UATSDIN [id number] JEHOVAH'S WITNESS MARITAL STATUS: SINGLE. ALCOHOL SCREENING DID YOU HAVE A DRINK CONTAINING ALCOHOL IN THE PAST YEAR?NO POINTS0 INTERPRETATIONNEGATIVE OCCUPATION: UNEMPLOYED. SEXUAL HX HAD SEX IN THE LAST 12 MONTHS (VAGINAL, ORAL, OR ANAL)?NO LMP:2009 HAVE YOU EVER HAD AN STD?NO REVIEWED WITH PT 06/23/18 1154 BVREVIEWED WITH PATIENT 07/07/18 1158 JS11/05/18 REVIEWED WITH PT. YIN12/07/18 REVIEWED WITH PT. YIN04/16/19 REVIEWED WITH PT 1204 LAS. HOSPITALIZATION/MAJOR DIAGNOSTIC PROCEDURE SURGERY RELATED [facility] ([facility]) 05/2012 ADMITTED TO [facility] 12/2015 [facility] 10/2015 [facility] DAY HOSPITAL STAY DUE TO NICKED BOWEL 12/19/2017 PNEUMONIA 07/2018 REVIEW OF SYSTEMS REVIEWED BY: PROVIDER: . CONSTITUTIONAL: ANY CHANGE IN YOUR MEDICAL CONDITION? NO . CHILLS NO . FEVER NO . INFECTION: DO YOU HAVE NEW INFECTIONS? NO . DO YOU HAVE HISTORY OF MRSA? YES . MUSCULOSKELETAL: ANY NEW PATTERNS OF PAIN OR NUMBNESS? NO . GASTROENTEROLOGY: ANY NEW CHANGE IN BOWEL CONTROL? NO . GENITOURINARY: ANY NEW CHANGE IN BLADDER CONTROL? NO . IS THERE A CHANCE YOU COULD BE ? NO . HEMATOLOGY/LYMPH: DO YOU TAKE ANY BLOOD THINNERS? (FOR EXAMPLE- COUMADIN, PLAVIX, AGGRENOX, PLATEL, PRADAXA, OR XARELTO) NO . WHEN WAS YOUR LAST DOSE? DATE: TIME: . NEUROLOGY: HAVE YOU FALLEN IN THE PAST 12 MONTHS? NO . ANY NEW EXTREMITY NUMBNESS OR WEAKNESS? NO . CARDIOLOGY: DO YOU HAVE A PACEMAKER OR DEFIBRILLATOR? NO . RESPIRATORY: HAVE YOU BEEN SICK IN THE PAST WEEK? NO . FEVER NO . FLU LIKE SYMPTOMS? NO . COUGH NO . INTEGUMENTARY: DO YOU HAVE ANY RASHES OR OPEN SORES? NO . ALLERGIC/IMMUNO: ARE YOU ALLERGIC TO IV DYE? NO . ANY NEW ALLERGIES? NO . PSYCHIATRIC: DO YOU HAVE THOUGHTS OF HURTING YOURSELF OR SOMEONE ELSE? NO . ARE YOU ABUSED, NEGLECTED, OR IN AN UNSAFE ENVIRONMENT? NO . ENDOCRINOLOGY: ARE YOU DIABETIC? NO . OTHER: DO YOU NEED ANY PRESCRIPTIONS? NO . IF YES, PLEASE LIST: ____ . ANY NEW PROBLEMS WITH YOUR MEDICATIONS? NO . WHEN DID YOU LAST EAT? ____04/28/19 . WHEN DID YOU LAST DRINK? ____929 . WHAT DID YOU LAST DRINK? ____WATER . NAME OF PERSON DRIVING YOU HOME? 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 DO YOU HAVE ANY OTHER QUESTIONS OR CONCERNS NO . VITAL SIGNS WT 197.4 LBS, HT 67", BMI 30.91 INDEX, BP 117/61 MM HG, HR 88 /MIN, RR 18 /MIN, TEMP 96.3 F, OXYGEN SAT % 97%, SAFE IN ENV? (Y/N) YES, NA INITIALS NE 13:11, REVIEWED BY: VD. ASSESSMENTS SPONDYLOSIS OF LUMBAR REGION WITHOUT MYELOPATHY OR RADICULOPATHY - M47.816 (PRIMARY) SPONDYLOSIS OF LUMBOSACRAL REGION WITHOUT MYELOPATHY OR RADICULOPATHY - M47.817 TREATMENT SPONDYLOSIS OF LUMBAR REGION WITHOUT MYELOPATHY OR RADICULOPATHY SMC FACET BLOCK (PAIN)[id number] PROCEDURES PN RADIOFREQUENCY PRE PROCEDURE DIAGNOSES 1. LUMBAR SPONDYLOSIS. 2. LUMBOSACRAL SPONDYLOSIS POST PROCEDURE DIAGNOSES 1. LUMBAR SPONDYLOSIS. 2. LUMBOSACRAL SPONDYLOSIS PROCEDURE RIGHT L4-L5 AND RIGHT L5-S1 LUMBAR FACET RADIOFREQUENCY SURGEON DR. HARRISON ZEPEDA PATTERN MAKER PROGRAMER NONE ANESTHESIA LOCAL PRE PROCEDURE REPORT THE PATIENT HAS HISTORY OF CHRONIC LOW BACK PAIN. I EVALUATE THE PATIENT AND REVIEWED THE CHART. I WENT OVER THE RISKS, ALTERNATIVES, AND BENEFITS ASSOCIATED WITH THIS PROCEDURE. THE PATIENT WOULD LIKE TO PROCEED AND GIVE CONSENT TO PERFORMED THE PROCEDURE. THE PATIENT DENIES UNEXPLAINABLE WEIGHT LOSS, FEVER, CHILLS, OR NEW CHANGES IN URINARY OR BOWEL CONTROL DESCRIPTION OF PROCEDURE THE PATIENT WAS BROUGHT TO THE PROCEDURE ROOM AND PLACED IN THE PRONE POSITION. THE LUMBOSACRAL AREA WAS CLEANED WITH CHLORAPREP SOLUTION AND DRAPED ASEPTICALLY. THE PROCEDURE WAS DONE UNDER STERILE CONDITIONS. I CHECKED LATERALITY AND THE LEVEL WHERE THE PROCEDURE WAS GOING TO BE PERFORMED WITH THE PATIENT AND THE SUPPORTING STAFF AT THE MOMENT OF THE TIME OUT IN THE PROCEDURE ROOM. UNDER FLUOROSCOPIC GUIDANCE, TARGETS WERE SELECTED AT THE INTERSECTION OF THE RIGHT TRANSVERSE PROCESS OF L4, L5 AND ALA OF S1 WITH ITS RESPECTIVE SUPERIOR ARTICULAR PROCESS. LIDOCAINE WAS USED TO NUMB THE SKIN AND THE SUBCUTANEOUS TISSUE BELOW IT. RADIOFREQUENCY NEEDLES 22-GAUGE 15 CM LONG WITH 10 MM ACTIVE CURVE TIP WERE ADVANCED UNDER FLUOROSCOPIC GUIDANCE AND FOLLOWING PATIENT FEEDBACK UNTIL THE TARGET AREA WAS REACHED. POSITION OF THE NEEDLES WAS VERIFIED WITH AP AND LATERAL VIEWS. AFTER PROPER POSITION OF THE NEEDLE WAS ACHIEVED, WE WORKED WITH THE RIGHT SELECTED MEDIAN BRANCHES OF L3, L4 AND THE DORSAL RAMI OF L5. WE MEASURED THE CORRESPONDING IMPEDANCES, SENSORY STIMULATION AND MOTOR RESPONSES INDICATED IN THE RADIOFREQUENCY WORKSHEET. POSITION OF THE NEEDLES WAS VERIFIED AGAIN WITH AP AND LATERAL VIEWS. LIDOCAINE 1%, 2 ML, WAS INJECTED AT EACH LEVEL. RADIOFREQUENCY WAS DONE AT EACH LEVEL AT 80 DEGREES FOR 90 SECONDS. AFTER RADIOFREQUENCY WAS DONE, THE PATIENT RECEIVED BUPIVACAINE 0.125% 1 CC WITH KENALOG 5 MG AT EACH SITE. THERE WAS NO EVIDENCE OF BLOOD, PARESTHESIA OR CEREBROSPINAL FLUID DURING THE PROCEDURE. THE PATIENT WAS SENT TO THE RECOVERY ROOM. THE PATIENT WAS MOVING THE EXTREMITIES AND DOING WELL. THERE WAS NO COMPLICATION DURING THE PROCEDURE. FLUOROSCOPY TIME WAS 58 SECONDS POST PROCEDURE NOTE THE PATIENT WILL BE SEEN IN A FOLLOW UP IN THE NEXT FEW WEEKS. INSTRUCTIONS WERE GIVEN, QUESTIONS WERE ANSWERED, AND THE PATIENT EXPRESSED UNDERSTANDING AND AGREES WITH THE PLAN. I, MARTA VILLELA, DOCUMENTED THE ABOVE INFORMATION ACTING A SCRIBE FOR DR. ZEPEDA. I HAVE REVIEWED THE ABOVE DOCUMENT, WRITTEN BY MARTA KAISERIBKarissa AND I VERIFY THAT IT IS ACCURATE. PROCEDURE CODES 6045F RADXPS IN END [id number] PXD [id number] DESTROY LUMB/SAC FACET JNT, MODIFIERS: [place] [id number] DESTROY L/S FACET JNT ADDL, MODIFIERS: RT DISPOSITION & COMMUNICATION FOLLOW UP 3 WEEKS ELECTRONICALLY SIGNED BY HARRISON ZEPEDA MD, MD ON 05/07/2019 AT 02:12 PM EDT DISCLAIMER : THIS IS A VISIT SUMMARY EXTRACTED FROM THE [facility] CHART. IT IS NOT A COPY OF THE [facility] PRO[facility]ESS [facility]. [facility]
== END ==
LOC: M PAIN 13:00
PROVIDERS: ATTEND Anesthesiology
DX: M47.816 Spondylosis without myelopathy or radiculopathy, lumbar region (principal); M47.817 Spondylosis without myelopathy or radiculopathy, lumbosacral region; F31.9 Bipolar disorder, unspecified; F41.9 Anxiety disorder, unspecified; F10.20 Alcohol dependence, uncomplicated; G43.909 Migraine, unspecified, not intractable, without status migrainosus; F17.210 Nicotine dependence, cigarettes, uncomplicated; I73.00 Raynaud's syndrome without gangrene; J45.909 Unspecified asthma, uncomplicated; G47.30 Sleep apnea, unspecified; Z98.84 Bariatric surgery status; Z90.79 Acquired absence of other genital organ(s); Z88.5 Allergy status to narcotic agent; Z88.8 Allergy status to other drugs, medicaments and biological substances; Z91.040 Latex allergy status; Z79.899 Other long term (current) drug therapy
CPT/HCPCS: 64635; 64636; J3301

== ENCOUNTER → 2019-05-03 | Outpatient (CLI) | payer OTHER ==
[~2019-05-03] MED LIST changes: -BUPIVACAINE HCL 0.25% 30 ML VIAL As Ordered ONE; -LIDOCAINE 1% SDV INJ 30 ML VIAL As Ordered ONE; -TRIAMCINOLONE ACETONIDE SUSP 40 MG/ML VIAL (J3301) As Ordered ONE
[2019-05-03 11:22] LABS: BASO # 0.1 10^3/uL (0.0-0.2); BASO % 1.1 % (0.0-1.0); EOS # 0.1 10^3/uL (0.0-0.50); HEMOGLOBIN 13.7 g/dl (12.0-15.5); LYMPH % 33.3 % (24.0-44.0); MEAN CORPUSCULAR HEMOGLOBIN 28.8 pg (27.0-33.0); MEAN CORPUSCULAR HGB CONC 32.6 g/dl (32.0-36.5); MEAN CORPUSCULAR VOLUME 88.4 fl (80.0-96.0); MONO # 0.4 10^3/uL (0.0-0.8); MONO % 6.1 % (0.0-5.0); NEUTROPHILS # 3.5 10^3/uL (1.8-7.7); NEUTROPHILS % 57.3 % (36.0-66.0); PLATELET COUNT, AUTOMATED 185 10^3/uL (150-450); RED BLOOD COUNT 4.75 10^6/uL (4.00-5.40); WHITE BLOOD COUNT 6.1 10^3/uL (4.0-10.0)
[2019-05-03 11:40] LABS: ERYTHROCYTE SEDIMENTATION RATE 28 mm/hr (0-20)
[2019-05-03 12:03] LABS: ALBUMIN 3.9 GM/DL (3.2-5.2); ALT/SGPT 27 U/L (12-78); BILIRUBIN,TOTAL 0.4 MG/DL (0.2-1.0); BLOOD UREA NITROGEN 10 MG/DL (7-18); CALCIUM LEVEL 9.8 MG/DL (8.5-10.1); CARBON DIOXIDE LEVEL 33 MEQ/L (21-32); CHLORIDE LEVEL 103 MEQ/L (98-107); ETHYL ALCOHOL (ETHANOL) < 0.003 % (0.000-0.010); GLOMERULAR FILTRATION RATE > 60.0 (>60); GLUCOSE, FASTING 80 MG/DL (70-100); POTASSIUM SERUM 4.1 MEQ/L (3.5-5.1); RHEUMATOID FACTOR QUANT < 10.0 IU/ML (<15.0); SODIUM LEVEL 139 MEQ/L (136-145)
== END ==
LOC: M LAB 10:22
PROVIDERS: ATTEND Family Medicine
DX: F10.10 Alcohol abuse, uncomplicated (principal)
CPT/HCPCS: 36415; 80053; 80307; 85025; 85652; 86431; G0480

== ENCOUNTER → 2019-05-03 | Outpatient (CLI) | payer OTHER ==
--- NOTE | 2019-05-05 01:34 | ECWPNPC ---
PATIENT NAME: ADELA ALMONTE : 1980 GENDER: FEMALE VISIT DATE: 05/03/2019 DISCHARGE DATE: 05/03/19 1010 VISIT LOCKED DATE TIME: PHYSICIAN: RAVEN CORDON RESOURCE: RAVEN CORDON REASON FOR APPOINTMENT 1. POST BOTOX HISTORY OF PRESENT ILLNESS HISTORY OF PRESENT ILLNESS: PAIN THE PATIENT DESCRIBES THE PAIN... 39 YEAR OLD FEMALE IN FOR POST BOTOX FOLLOW UP. SHE ADMITS THE PROCEDURE HAS WORKED WELL AND CURRENTLY RATES HER PAIN AT A 6/10. FALL RISK SCREENING: SCREENING :NO FALLS REPORTED IN THE LAST YEAR CURRENT MEDICATIONS TAKING IMITREX 4 MG/0.5ML SOLUTION 1 INJECTION NEEDED AT THE ONSET OF A MIGRAINE SUBCUTANEOUS REPEAT TIMES ONE IF NOT EFFECTIVE (DR JC) TAKING NARATRIPTAN HCL 2.5 MG TABLET 1 TABLET NEEDED ONE TIME AT ONSET OF MIGRAINE ORALLY MAY REPEAT IN 2 HRS ONCE A DAY MDD2 TAKING POTASSIUM CHLORIDE ER 20 MEQ TABLET EXTENDED RELEASE 1 TABLET WITH FOOD ORALLY ONCE A DAY TAKING CUVITRU 4 GM/20ML SOLUTION 11 GRAMS SUBCUTANEOUS WEEKLY TAKING BUSPIRONE HCL 30 MG TABLET 1 TABLET ORALLY TWICE A DAY TAKING VYVANSE 70 MG CAPSULE 1 CAPSULE IN THE MORNING ORALLY ONCE A DAY TAKING VRAYLAR 3 MG CAPSULE 1 CAPSULE ORALLY ONCE A DAY TAKING FLUTICASONE PROPIONATE 50 MCG/ACT SUSPENSION 1 SPRAY IN EACH NOSTRIL NASALLY ONCE A DAY TAKING CLARITIN 10 MG TABLET 1 TABLET ORALLY ONCE A DAY TAKING ALBUTEROL SULFATE (2.5 MG/3ML) 0.083% NEBULIZATION SOLUTION 1 VIAL INHALATION EVERY 6 HRS PRN TAKING KETOCONAZOLE 2 % CREAM 1 APPLICATION TO AFFECTED AREA EXTERNALLY ONCE A DAY TO BOTH FEET, NOTES: > 1 WEEK TAKING PHENERGAN 25 MG TABLET 1 TABLET ORALLY EVERY 6 HRS PRN NAUSEA TAKING ACETAMINOPHEN 500 MG CAPSULE 1 CAPSULES NEEDED ORALLY EVERY 6 HRS PRN TAKING IBUPROFEN 800 MG TABLET 1 TABLET WITH FOOD OR MILK NEEDED ORALLY THREE TIMES A DAY NEEDED FOR SEVERE HEADACHES TAKING AMMONIUM LACTATE 10 % LOTION 1 APPLICATION TO AFFECTED AREA EXTERNALLY TWICE A DAY TAKING ESTRADIOL 0.025 MG/24HR PATCH TWICE WEEKLY 1 PATCH TO SKIN TRANSDERMAL TWO TIMES A WEEK TAKING LOSARTAN POTASSIUM 25 MG TABLET 1 TABLET ORALLY ONCE A DAY TAKING NIFEDIPINE 20 MG CAPSULE 1 CAPSULE ORALLY DAILY TAKING VENTOLIN HFA 108 (90 BASE) MCG/ACT AEROSOL SOLUTION 2 PUFFS NEEDED INHALATION EVERY 4 HRS PRN TAKING PROTONIX 40 MG TABLET DELAYED RELEASE 1 TABLET ORALLY DAILY TAKING MOVANTIK 25 MG TABLET 1 TABLET IN THE MORNING ORALLY ONCE A DAY TAKING TIZANIDINE HCL 4 MG TABLET 1 TABLET NEEDED ORALLY FOR SPASMS AND PAIN Q8H PRN MDD3 TAKING LYRICA 200 MG CAPSULE 1 CAPSULE ORALLY THREE TIMES A DAY MDD3 TAKING BELBUCA 150 MCG FILM 1 FILM TO THE GUM BUCALLY EVERY 12 HRS TAKING LASIX 20 MG TABLET 1 TABLET ORALLY ONCE A DAY NOT-TAKING HYDROXYZINE HCL 10 MG TABLET DIRECTED ORALLY FOUR TIMES DAILY MEDICATION LIST REVIEWED AND RECONCILED WITH THE PATIENT PAST MEDICAL HISTORY SURGICAL MENOPAUSE S/P ELIA & BSO 2009 CHRONIC NECK/MID/LOW BACK PAIN PEPTIC ULCER DISEASE, S/P GASTRIC BYPASS - ON PROTONIX AND CARAFATE BY DR. MILLER BIPOLAR, ANXIETY, DEPRESSION - FOLLWS WITH DR. OTERO ALCOHOLISM MIGRAINE HEADACHES TOBACCO USE ADD CHRONIC RHINITIS/SINUSITIS RAYNAUD'S SYNDROME COMMON VARIABLE IMMUNO DEFICIENCY DISEASE ASTHMA HEART MURMUR - ECHO 10/2017 BORDERLINE LVH, MILD LAE, SUBTLE AV SCLEROSIS, AORTIC SCLEROSIS, MILD AR, MILD MR SLEEP APNEA WITH BIPAP S/P GASTRIC BYPASS FAINTING SPELLS ALLERGIES MORPHINE: , DIFF. BREATHING - ALLERGY LATEX: HIVES - ALLERGY DILAUDID: HIVES, DIFF. BREATHING - ALLERGY REGLAN: HIVES - ALLERGY LAMICTAL: HIVES - ALLERGY DEPAKOTE: CONFUSION - CONTRAINDICATION RISPERDAL: SUICIDAL IDEATION - ALLERGY KETOROLAC TROMETHAMINE: ANAPHYLAXIS - ALLERGY MUSCLE RELAXERS: ALTERED MENTAL STATUS - SIDE EFFECTS GASTROGRAFIN: HIVES - ALLERGY SURGICAL HISTORY LUMBAR LAMINECTOMY [place] 02/11 BACK SURGERY 1997 LAPAROTOMY X 4...CARTHAGE....DR. CRISTOBAL CHOLECYSTECTOMY 07/13 ELIA W/ AGUDEOL, APPENDECTOMY - FOR ENDOMETRIOSIS 12/13 GASTRIC BYPASS (DR. CARTAGENA, [facility]) 01/2012 LAPAROSCOPY AND REMOVAL OF ADHESIONS (DR. BARRERA) 12/2012 CHEST TUBE ENDOSCOPY/COLONOSCOPY BLOOD TRANSFUSION BLADDER REPAIR 10/2016 LAPROSCOPC SURGERY FOR ENDOMETRIOSIS / LYSIS OF ADHESIONS AND SCAR TISSUE (BOWEL NICKED IN OR). 12/19/17 EGD - ESOPHAGEAL PLAQUE - BIOPSY RESULTS NOT SENT TO US (DR. MILLER) 05/2018 REMOVAL CYSTS IN BILATERAL EARS REMOVAL OF NEEDLE FROM RIGHT FOOT FAMILY HISTORY FATHER: ALIVE, DIAGNOSED WITH STROKE, CANCER MOTHER: ALIVE, HEART DISEASE, DIABETES, HYPERTENSION FATHER SKIN CANCER\\\\\\\\NSISTER WITH HOSHIMOTO\\\\\\\\\\\\\\'S. SOCIAL HISTORY GENERAL: TOBACCO USE ARE YOU A:CURRENT SMOKER HOW OFTEN DO YOU SMOKE CIGARETTES?EVERY DAY HOW SOON AFTER YOU WAKE UP DO YOU SMOKE YOUR FIRST CIGARETTE?AFTER 60 MIN HOW MANY CIGARETTES A DAY DO YOU SMOKE?11-20 ARE YOU INTERESTED IN QUITTING?NOT READY TO QUIT NO LONGER TAKING CHANTIX PATIENT COUNSELED ON THE DANGERS OF TOBACCO USE AND URGED TO QUIT:04/29/2019 COUNSELED THE PATIENT ON SMOKING EFFECTS, EDUCATION [id number]/25/2019 HIV / HEP-C SCREENING HIV TEST OFFERED TO PATIENT:YES DATE OFFERED:03/13/2017 TEST ACCEPTED:NO HEP-C TEST OFFERED TO PATIENT:NO REASON:PATIENT DECLINED EDUCATION LEVEL OF EDUCATION:NOT FINISHED COLLEGE DIET: REGULAR. LANGUAGE LANGUAGES SPOKEN:ROMANSH DOMESTIC VIOLENCE DO YOU FEEL SAFE IN YOUR ENVIRONMENT?YES BMI CARE GOAL FOLLOW-UP ABOVE NORMAL BMI FOLLOW-UPDIETARY MANAGEMENT EDUCATION, GUIDANCE, AND COUNSELING, DIETARY NEEDS EDUCATION, EXERCISE PROMOTION: STRENGTH TRAINING RECREATIONAL DRUG USE DRUG USE?NO EXERCISE: NO REGULAR EXERCISE. LEARNING BARRIERS / SPECIAL NEEDS CHANGE FROM LAST VISIT?NO BARRIERS TO LEARNING?NO HEARING IMPAIRED?NO VISION IMPAIRED?NO COGNITIVELY IMPAIRED?NO READINESS TO LEARN?YES LEARNING PREFERENCES?NO LEARNING CAPABILITIES PRESENT?YES EMOTIONAL BARRIERS?NO SPECIAL DEVICES?NO BUSPERSON NEEDED?NO LUNG CANCER SCREENING SMOKING STATUS:CURRENT SMOKER PAIN CLINIC PFS, CLERGY, PUBLIC HEALTH REFERRALS PFS REFERRAL NEEDED?NO CLERGY REFERRAL NEEDED?NO PUBLIC HEALTH REFERRAL NEEDED?NO WAS THE PROVIDER NOTIFIED OF ANY PERTINENT INFO? N/A HAS THE PATIENT BEEN EDUCATED REGARDING HIS/HER PLAN OF CARE?YES HAS THE PATIENT BEEN EDUCATED REGARDING PAIN, THE RISK FOR PAIN, THE IMPORTANCE OF EFFECTIVE PAIN MANAGEMENT, AND THE PAIN ASSESSMENT PROCESS?YES LATEX QUESTIONNAIRE LATEX ALLERGY : HAVE YOU EVER DEVELOPED ANY TYPE OF REACTION AFTER HANDLING LATEX PRODUCTS SUCH RUBBER GLOVES, CONDOMS, DIAPHRAGMS, BALLOONS, SOCKS, OR UNDERWEAR?YES - PLEASE INDICATE :RUBBER GLOVES, CONDOMS, UNDERWEAR, OTHER (DOCUMENT IN NOTES) BRAS LATEX ALLERGY : HAVE YOU EVER DEVELOPED ANY TYPE OF REACTION DURING OR AFTER DENTAL APPOINTMENT, VAGINAL/RECTAL EXAMINATION, SURGICAL PROCEDURE, OR ANY OTHER EXPOSURE?YES - PLEASE INDICATE :VAGINAL EXAM LATEX RISK : HAVE YOU EVER HAD ANY DIFFICULTY BREATHING OR HIVES AFTER EATING OR HANDLING ANY FRUITS, OR VEGETABLES; SUCH KIWI, BANANAS, STONE FRUITS, OR CHESTNUTSNO LATEX RISK : DO YOU HAVE A PREVIOUS PERSONAL HISTORY OF MORE THAN NINE SURGERIES, SPINA BIFIDA, OR REPEATED CATHERIZATIONS? YES - PLEASE INDICATE : > 9 SURGERIES LATEX RISK : ARE YOU FREQUENTLY EXPOSED TO LATEX PRODUCTS IN YOUR OCCUPATION?NO DATE ASKED : 04/29/2019 CAFFEINE CAFFEINE USE?YES 2-3 CUPS COFFEE & ICED TEA THROUGH THE DAY. ADVANCE DIRECTIVE ADVANCE DIRECTIVE DISCUSSED WITH PATIENT:YES PT. DOES NOT HAVE ANY ADVANCED DIREDCTIVES AND SHE DECLINES INFORMATION ON HCP AT THIS TIME.05/03/19 JUDAISM [id number] RELIGIOUS MARITAL STATUS: SINGLE. ALCOHOL SCREENING DID YOU HAVE A DRINK CONTAINING ALCOHOL IN THE PAST YEAR?NO POINTS0 INTERPRETATIONNEGATIVE OCCUPATION: UNEMPLOYED. SEXUAL HX HAD SEX IN THE LAST 12 MONTHS (VAGINAL, ORAL, OR ANAL)?NO LMP:2009 HAVE YOU EVER HAD AN STD?NO REVIEWED WITH PT 06/23/18 1154 BVREVIEWED WITH PATIENT 07/07/18 1158 JS11/05/18 REVIEWED WITH PT. AD12/07/18 REVIEWED WITH PT. AD04/16/19 REVIEWED WITH PT 1204 LASREVIEWED WITH PT 05/03/19 0945 BV. HOSPITALIZATION/MAJOR DIAGNOSTIC PROCEDURE SURGERY RELATED [facility] ([facility]) 05/2012 ADMITTED TO [facility] 12/2015 [facility] 10/2015 [facility] DAY [facility] STAY DUE TO NICKED BOWEL 12/19/2017 PNEUMONIA 07/2018 REVIEW OF SYSTEMS REVIEWED BY: PROVIDER: ENRIQUETA KNUTSON . CONSTITUTIONAL: ANY CHANGE IN YOUR MEDICAL CONDITION? NO . CHILLS NO . FEVER NO . INFECTION: DO YOU HAVE NEW INFECTIONS? NO . DO YOU HAVE HISTORY OF MRSA? NO . MUSCULOSKELETAL: ANY NEW PATTERNS OF PAIN OR NUMBNESS? NO . GASTROENTEROLOGY: ANY NEW CHANGE IN BOWEL CONTROL? NO . GENITOURINARY: ANY NEW CHANGE IN BLADDER CONTROL? NO . IS THERE A CHANCE YOU COULD BE ? NO . HEMATOLOGY/LYMPH: DO YOU TAKE ANY BLOOD THINNERS? (FOR EXAMPLE- COUMADIN, PLAVIX, AGGRENOX, PLATEL, PRADAXA, OR XARELTO) NO . WHEN WAS YOUR LAST DOSE? DATE: TIME: . NEUROLOGY: HAVE YOU FALLEN IN THE PAST 12 MONTHS? NO . ANY NEW EXTREMITY NUMBNESS OR WEAKNESS? NO . CARDIOLOGY: DO YOU HAVE A PACEMAKER OR DEFIBRILLATOR? NO . RESPIRATORY: HAVE YOU BEEN SICK IN THE PAST WEEK? NO . FEVER NO . FLU LIKE SYMPTOMS? NO . COUGH NO . INTEGUMENTARY: DO YOU HAVE ANY RASHES OR OPEN SORES? NO . ALLERGIC/IMMUNO: ARE YOU ALLERGIC TO IV DYE? NO . ANY NEW ALLERGIES? NO . PSYCHIATRIC: DO YOU HAVE THOUGHTS OF HURTING YOURSELF OR SOMEONE ELSE? NO . ARE YOU ABUSED, NEGLECTED, OR IN AN UNSAFE ENVIRONMENT? NO . ENDOCRINOLOGY: ARE YOU DIABETIC? NO . OTHER: DO YOU NEED ANY PRESCRIPTIONS? NO, LYRICA, BELBUCA, NARATRIPTAN, IMITREX . IF YES, PLEASE LIST: ____ . ANY NEW PROBLEMS WITH YOUR MEDICATIONS? NO . WHEN DID YOU LAST EAT? ____ . WHEN DID YOU LAST DRINK? ____ . WHAT DID YOU LAST DRINK? ____ . NAME OF PERSON DRIVING YOU HOME? ____ . DO YOU HAVE ANY OTHER QUESTIONS OR CONCERNS NO . VITAL SIGNS WT 197.4 LBS, HT 67", BMI 30.91 INDEX, BP 127/81 MM HG, HR 69 /MIN, RR 18 /MIN, TEMP 97.1 F, OXYGEN SAT % 98%, NA INITIALS SC 09:35, REVIEWED BY: BV. EXAMINATION GENERAL EXAMINATION: GENERALNO ACUTE DISTRESS, WELL NOURISHED AND HYDRATED. PSYCHAPPROPRIATE MOOD AND AFFECT . LUNGS:CLEAR TO AUSCULTATION BILATERALLY, NO WHEEZES, RHONCHI, RALES. HEART:NO MURMURS, REGULAR RATE AND RHYTHM. ASSESSMENTS CHRONIC MIGRAINE WITHOUT AURA, NOT INTRACTABLE, WITHOUT STATUS MIGRAINOSUS - G43.709 (PRIMARY) TREATMENT CHRONIC MIGRAINE WITHOUT AURA, NOT INTRACTABLE, WITHOUT STATUS MIGRAINOSUS CLINICAL NOTES: 39 YEAR OLD FEMALE IN FOR POST BOTOX FOLLOW UP. GIVEN PRESENTING SYMPTOMS AND RESULTS OF PHYSICAL EXAMINATION RECOMMENDED FOLLOW UP IN 2 MONTHS TO POTENTIALLY DISCUSS ANOTHER INJECTION. PATIENT HAS EXPRESSED UNDERSTANDING OF AND WAS IN AGREEMENT WITH TREATMENT PLAN. GIVEN TIME TO ASK QUESTIONS AND EXPRESS CONCERNS. , ISTOP REGISTRY REVIEWED AND DEMONSTRATES COMPLLIANCE. (REF #[id number] IN MEDICATIONS WHICH IS APPROPRIATE FOR WHAT WAS DISPENSED. RECENT URINE TOXICOLOGY REVIEWED. NO UNAUTHORIZED MEDICATIONS. NO ILLICIT SUBSTANCES AND PRESCRIBED MEDICATIONS WERE PRESENT. OTHERS REFILL NARATRIPTAN HCL TABLET, 2.5 MG, 1 TABLET NEEDED ONE TIME AT ONSET OF MIGRAINE, ORALLY MAY REPEAT IN 2 HRS, ONCE A DAY MDD2, 30 DAYS, 9, REFILLS 0 REFILL IMITREX SOLUTION, 4 MG/0.5ML, 1 INJECTION NEEDED AT THE ONSET OF A MIGRAINE, SUBCUTANEOUS, REPEAT TIMES ONE IF NOT EFFECTIVE (DR JC) REFILL BELBUCA FILM, 150 MCG, 1 FILM TO THE GUM, BUCALLY, EVERY 12 HRS, 30 DAY(S), 60, REFILLS 0 REFILL LYRICA CAPSULE, 200 MG, 1 CAPSULE, ORALLY, THREE TIMES A DAY MDD3, 30 DAYS, 90, REFILLS 0 PROCEDURE CODES FA211 ESTABILISHED PATIENT [facility] CHARGE DISPOSITION & COMMUNICATION FOLLOW UP 2 MONTHS (REASON: MIGRAINES ) ELECTRONICALLY SIGNED BY JAKUB VILLEDA ON 05/04/2019 AT 09:48 AM EDT DISCLAIMER : THIS IS A VISIT SUMMARY EXTRACTED FROM THE [employer] CHART. IT IS NOT A COPY OF THE [employer] PROGRESS NOTE. GELACIO
== END ==
LOC: M PAIN 09:30
PROVIDERS: ATTEND Family Medicine
DX: G43.709 Chronic migraine without aura, not intractable, without status migrainosus (principal); M54.2 Cervicalgia; M54.5 Low back pain; F31.9 Bipolar disorder, unspecified; F41.9 Anxiety disorder, unspecified; F10.20 Alcohol dependence, uncomplicated; J32.9 Chronic sinusitis, unspecified; I73.00 Raynaud's syndrome without gangrene; J45.909 Unspecified asthma, uncomplicated; G47.30 Sleep apnea, unspecified; Z98.84 Bariatric surgery status; F17.210 Nicotine dependence, cigarettes, uncomplicated; Z90.49 Acquired absence of other specified parts of digestive tract; Z90.710 Acquired absence of both cervix and uterus; Z90.722 Acquired absence of ovaries, bilateral; Z88.5 Allergy status to narcotic agent; Z88.8 Allergy status to other drugs, medicaments and biological substances; Z91.040 Latex allergy status

== ENCOUNTER → 2019-05-07 | Outpatient (CLI) | payer OTHER ==
--- NOTE | 2019-05-19 01:43 | ECWPNPC ---
PATIENT NAME: ADELA ALMONTE : 1980 GENDER: FEMALE VISIT DATE: 05/07/2019 DISCHARGE DATE: 05/07/19 1215 VISIT LOCKED DATE TIME: PHYSICIAN: HARRISON ZEPEDA MD RESOURCE: HARRISON ZEPEDA MD REASON FOR APPOINTMENT 1. POST TPI HISTORY OF PRESENT ILLNESS HISTORY OF PRESENT ILLNESS: PAIN THE PATIENT DESCRIBES THE PAIN... 39 YEAR OLD FEMALE PATIENT WITH A HISTORY OF CHRONIC THORACIC PAIN. THE PATIENT DESCRIBES THE PAIN ACHING, BURNING, STABBING, SHOOTING, SORE, TENDER, SHARP, NUMBING, TINGLING, PINS AND NEEDLES, AND DAILY WITH A PAIN SCORE OF 6-9/10 DEPENDING ON PHYSICAL ACTIVITY. THE PATIENT SAYS SHE IS ALWAYS IN CONSTANT PAIN NO MATTER WHAT POSITION SHE IS IN. THE PATIENT RECEIVED MID-BACK TRIGGER POINTS ON 04/16/2019, WHICH SHE SAYS DID NOT HELP WITH HER PAIN. PATIENT DENIES UNEXPLAINABLE WEIGHT LOSS, FEVER, CHILLS, NEW CHANGES ON HER URINARY OR BOWEL CONTROL. FALL RISK SCREENING: SCREENING :NO FALLS REPORTED IN THE LAST YEAR CURRENT MEDICATIONS TAKING POTASSIUM CHLORIDE ER 20 MEQ TABLET EXTENDED RELEASE 1 TABLET WITH FOOD ORALLY ONCE A DAY TAKING CUVITRU 4 GM/20ML SOLUTION 11 GRAMS SUBCUTANEOUS WEEKLY TAKING BUSPIRONE HCL 30 MG TABLET 1 TABLET ORALLY TWICE A DAY TAKING VYVANSE 70 MG CAPSULE 1 CAPSULE IN THE MORNING ORALLY ONCE A DAY TAKING VRAYLAR 3 MG CAPSULE 1 CAPSULE ORALLY ONCE A DAY TAKING CLARITIN 10 MG TABLET 1 TABLET ORALLY ONCE A DAY TAKING KETOCONAZOLE 2 % CREAM 1 APPLICATION TO AFFECTED AREA EXTERNALLY ONCE A DAY TO BOTH FEET, NOTES: > 1 WEEK TAKING PHENERGAN 25 MG TABLET 1 TABLET ORALLY EVERY 6 HRS PRN NAUSEA TAKING AMMONIUM LACTATE 10 % LOTION 1 APPLICATION TO AFFECTED AREA EXTERNALLY TWICE A DAY TAKING ESTRADIOL 0.025 MG/24HR PATCH TWICE WEEKLY 1 PATCH TO SKIN TRANSDERMAL TWO TIMES A WEEK TAKING LOSARTAN POTASSIUM 25 MG TABLET 1 TABLET ORALLY ONCE A DAY TAKING MOVANTIK 25 MG TABLET 1 TABLET IN THE MORNING ORALLY ONCE A DAY TAKING TIZANIDINE HCL 4 MG TABLET 1 TABLET NEEDED ORALLY FOR SPASMS AND PAIN Q8H PRN MDD3 TAKING LASIX 20 MG TABLET 1 TABLET ORALLY ONCE A DAY TAKING NARATRIPTAN HCL 2.5 MG TABLET 1 TABLET NEEDED ONE TIME AT ONSET OF [place] ORALLY MAY REPEAT IN 2 HRS ONCE A DAY MDD2 TAKING IMITREX 4 MG/0.5ML SOLUTION 1 INJECTION NEEDED AT THE ONSET OF A [place] SUBCUTANEOUS REPEAT TIMES ONE IF NOT EFFECTIVE (DR JC) TAKING BELBUCA 150 MCG FILM 1 FILM TO THE GUM BUCALLY EVERY 12 HRS TAKING LYRICA 200 MG CAPSULE 1 CAPSULE ORALLY THREE TIMES A DAY MDD3 TAKING ACETAMINOPHEN 500 MG CAPSULE 1 CAPSULES NEEDED ORALLY EVERY 6 HRS PRN TAKING PROTONIX 40 MG TABLET DELAYED RELEASE 1 TABLET ORALLY DAILY TAKING NIFEDIPINE 20 MG CAPSULE 1 CAPSULE ORALLY DAILY TAKING FERROUS SULFATE 325 (65 FE) MG TABLET 1 TABLET ORALLY EVERY OTHER DAY TAKING FLUTICASONE PROPIONATE 50 MCG/ACT SUSPENSION 1 SPRAY IN EACH NOSTRIL NASALLY ONCE A DAY TAKING IBUPROFEN 800 MG TABLET 1 TABLET WITH FOOD OR MILK NEEDED ORALLY THREE TIMES A DAY NEEDED FOR SEVERE HEADACHES TAKING VENTOLIN HFA 108 (90 BASE) MCG/ACT AEROSOL SOLUTION 2 PUFFS NEEDED INHALATION EVERY 4 HRS PRN TAKING ALBUTEROL SULFATE (2.5 MG/3ML) 0.083% NEBULIZATION SOLUTION 1 VIAL INHALATION EVERY 6 HRS PRN TAKING ZYRTEC 10 MG TABLET 1 TABLET NEEDED ORALLY ONCE A DAY DISCONTINUED HYDROXYZINE HCL 10 MG TABLET DIRECTED ORALLY FOUR TIMES DAILY MEDICATION LIST REVIEWED AND RECONCILED WITH THE PATIENT PAST MEDICAL HISTORY SURGICAL MENOPAUSE S/P ELIA & BSO 2010 CHRONIC NECK/MID/LOW BACK PAIN PEPTIC ULCER DISEASE, S/P GASTRIC BYPASS - ON PROTONIX AND CARAFATE BY DR. MILLER BIPOLAR, ANXIETY, DEPRESSION - FOLLWS WITH DR. OTERO ALCOHOLISM MIGRAINE HEADACHES TOBACCO USE ADD CHRONIC RHINITIS/SINUSITIS RAYNAUD'S SYNDROME COMMON VARIABLE IMMUNO DEFICIENCY DISEASE ASTHMA HEART MURMUR - ECHO 10/2017 BORDERLINE LVH, MILD LAE, SUBTLE AV SCLEROSIS, AORTIC SCLEROSIS, MILD AR, MILD MR SLEEP APNEA WITH BIPAP S/P GASTRIC BYPASS FAINTING SPELLS ALLERGIES MORPHINE: , DIFF. BREATHING - ALLERGY LATEX: HIVES - ALLERGY DILAUDID: HIVES, DIFF. BREATHING - ALLERGY REGLAN: HIVES - ALLERGY LAMICTAL: HIVES - ALLERGY DEPAKOTE: CONFUSION - CONTRAINDICATION RISPERDAL: SUICIDAL IDEATION - ALLERGY KETOROLAC TROMETHAMINE: ANAPHYLAXIS - ALLERGY MUSCLE RELAXERS: ALTERED MENTAL STATUS - SIDE EFFECTS GASTROGRAFIN: HIVES - ALLERGY SURGICAL HISTORY LUMBAR LAMINECTOMY [place] 02/11 BACK SURGERY 1997 LAPAROTOMY X 4...CARTHAGE....DR. CRISTOBAL CHOLECYSTECTOMY 07/13 ELIA W/ AGUDELO, APPENDECTOMY - FOR ENDOMETRIOSIS 12/13 GASTRIC BYPASS (DR. CARTAGENA, [facility]) 01/2012 LAPAROSCOPY AND REMOVAL OF ADHESIONS (DR. BARRERA) 12/2012 CHEST TUBE ENDOSCOPY/COLONOSCOPY BLOOD TRANSFUSION BLADDER REPAIR 10/2016 LAPROSCOPC SURGERY FOR ENDOMETRIOSIS / LYSIS OF ADHESIONS AND SCAR TISSUE (BOWEL NICKED IN OR). 12/19/17 EGD - ESOPHAGEAL PLAQUE - BIOPSY RESULTS NOT SENT TO US (DR. MILLER) 05/2018 REMOVAL CYSTS IN BILATERAL EARS REMOVAL OF NEEDLE FROM RIGHT FOOT FAMILY HISTORY FATHER: ALIVE, DIAGNOSED WITH STROKE, CANCER MOTHER: ALIVE, HEART DISEASE, DIABETES, HYPERTENSION FATHER SKIN CANCER\\\\\\\\NSISTER WITH HOSHIMOTO\\\\\\\\\\\\\\'S. SOCIAL HISTORY GENERAL: TOBACCO USE ARE YOU A:CURRENT SMOKER HOW OFTEN DO YOU SMOKE CIGARETTES?EVERY DAY HOW SOON AFTER YOU WAKE UP DO YOU SMOKE YOUR FIRST CIGARETTE?AFTER 60 MIN HOW MANY CIGARETTES A DAY DO YOU SMOKE?11-20 ARE YOU INTERESTED IN QUITTING?NOT READY TO QUIT NO LONGER TAKING CHANTIX PATIENT COUNSELED ON THE DANGERS OF TOBACCO USE AND URGED TO QUIT:04/29/2019 COUNSELED THE PATIENT ON SMOKING EFFECTS, EDUCATION [id number]/25/2019 HIV / HEP-C SCREENING HIV TEST OFFERED TO PATIENT:YES DATE OFFERED:03/13/2017 TEST ACCEPTED:NO HEP-C TEST OFFERED TO PATIENT:NO REASON:PATIENT DECLINED EDUCATION LEVEL OF EDUCATION:NOT FINISHED COLLEGE DIET: REGULAR. LANGUAGE LANGUAGES SPOKEN:MACEDONIAN DOMESTIC VIOLENCE DO YOU FEEL SAFE IN YOUR ENVIRONMENT?YES BMI CARE GOAL FOLLOW-UP ABOVE NORMAL BMI FOLLOW-UPDIETARY MANAGEMENT EDUCATION, GUIDANCE, AND COUNSELING, DIETARY NEEDS EDUCATION, EXERCISE PROMOTION: STRENGTH TRAINING RECREATIONAL DRUG USE DRUG USE?NO EXERCISE: NO REGULAR EXERCISE. LEARNING BARRIERS / SPECIAL NEEDS CHANGE FROM LAST VISIT?NO BARRIERS TO LEARNING?NO HEARING IMPAIRED?NO VISION IMPAIRED?NO COGNITIVELY IMPAIRED?NO READINESS TO LEARN?YES LEARNING PREFERENCES?NO LEARNING CAPABILITIES PRESENT?YES EMOTIONAL BARRIERS?NO SPECIAL DEVICES?NO EMERGENCY CARE TECH NEEDED?NO LUNG CANCER SCREENING SMOKING STATUS:CURRENT SMOKER PAIN CLINIC PFS, CLERGY, PUBLIC HEALTH REFERRALS PFS REFERRAL NEEDED?NO CLERGY REFERRAL NEEDED?NO PUBLIC HEALTH REFERRAL NEEDED?NO WAS THE PROVIDER NOTIFIED OF ANY PERTINENT INFO? N/A HAS THE PATIENT BEEN EDUCATED REGARDING HIS/HER PLAN OF CARE?YES HAS THE PATIENT BEEN EDUCATED REGARDING PAIN, THE RISK FOR PAIN, THE IMPORTANCE OF EFFECTIVE PAIN MANAGEMENT, AND THE PAIN ASSESSMENT PROCESS?YES LATEX QUESTIONNAIRE LATEX ALLERGY : HAVE YOU EVER DEVELOPED ANY TYPE OF REACTION AFTER HANDLING LATEX PRODUCTS SUCH RUBBER GLOVES, CONDOMS, DIAPHRAGMS, BALLOONS, SOCKS, OR UNDERWEAR?YES - PLEASE INDICATE :RUBBER GLOVES, CONDOMS, UNDERWEAR, OTHER (DOCUMENT IN NOTES) BRAS LATEX ALLERGY : HAVE YOU EVER DEVELOPED ANY TYPE OF REACTION DURING OR AFTER DENTAL APPOINTMENT, VAGINAL/RECTAL EXAMINATION, SURGICAL PROCEDURE, OR ANY OTHER EXPOSURE?YES - PLEASE INDICATE :VAGINAL EXAM LATEX RISK : HAVE YOU EVER HAD ANY DIFFICULTY BREATHING OR HIVES AFTER EATING OR HANDLING ANY FRUITS, OR VEGETABLES; SUCH KIWI, BANANAS, STONE FRUITS, OR CHESTNUTSNO LATEX RISK : DO YOU HAVE A PREVIOUS PERSONAL HISTORY OF MORE THAN NINE SURGERIES, SPINA BIFIDA, OR REPEATED CATHERIZATIONS? YES - PLEASE INDICATE : > 9 SURGERIES LATEX RISK : ARE YOU FREQUENTLY EXPOSED TO LATEX PRODUCTS IN YOUR OCCUPATION?NO DATE ASKED : 05/07/2019 CAFFEINE CAFFEINE USE?YES 2-3 CUPS COFFEE & ICED TEA THROUGH THE DAY. ADVANCE DIRECTIVE ADVANCE DIRECTIVE DISCUSSED WITH PATIENT:YES PT. DOES NOT HAVE ANY ADVANCED DIREDCTIVES AND SHE DECLINES INFORMATION ON HCP AT THIS TIME.05/03/19 HOLINESS [id number] HOAHAOISM MARITAL STATUS: SINGLE. ALCOHOL SCREENING DID YOU HAVE A DRINK CONTAINING ALCOHOL IN THE PAST YEAR?NO POINTS0 INTERPRETATIONNEGATIVE OCCUPATION: UNEMPLOYED. SEXUAL HX HAD SEX IN THE LAST 12 MONTHS (VAGINAL, ORAL, OR ANAL)?NO LMP:2009 HAVE YOU EVER HAD AN STD?NO REVIEWED WITH PT 06/23/18 1154 BVREVIEWED WITH PATIENT 07/07/18 1158 JS11/05/18 REVIEWED WITH PT. AD12/07/18 REVIEWED WITH PT. AD04/16/19 REVIEWED WITH PT 1204 LASREVIEWED WITH PT 05/03/19 0945 BV. HOSPITALIZATION/MAJOR DIAGNOSTIC PROCEDURE SURGERY RELATED [facility] ([facility]) 05/2012 ADMITTED TO [facility] 12/2015 [facility] 10/2015 [facility] 2 DAY HOSPITAL STAY DUE TO NICKED BOWEL 12/19/2017 PNEUMONIA 07/2018 REVIEW OF SYSTEMS REVIEWED BY: PROVIDER: HARRISON ZEPEDA MD . CONSTITUTIONAL: ANY CHANGE IN YOUR MEDICAL CONDITION? NO . CHILLS NO . FEVER NO . INFECTION: DO YOU HAVE NEW INFECTIONS? NO . DO YOU HAVE HISTORY OF MRSA? YES . MUSCULOSKELETAL: ANY NEW PATTERNS OF PAIN OR NUMBNESS? YES . GASTROENTEROLOGY: ANY NEW CHANGE IN BOWEL CONTROL? NO . GENITOURINARY: ANY NEW CHANGE IN BLADDER CONTROL? NO . IS THERE A CHANCE YOU COULD BE ? NO . HEMATOLOGY/LYMPH: DO YOU TAKE ANY BLOOD THINNERS? (FOR EXAMPLE- COUMADIN, PLAVIX, AGGRENOX, PLATEL, PRADAXA, OR XARELTO) NO . WHEN WAS YOUR LAST DOSE? DATE: TIME: . NEUROLOGY: HAVE YOU FALLEN IN THE PAST 12 MONTHS? NO . ANY NEW EXTREMITY NUMBNESS OR WEAKNESS? NO . CARDIOLOGY: DO YOU HAVE A PACEMAKER OR DEFIBRILLATOR? NO . RESPIRATORY: HAVE YOU BEEN SICK IN THE PAST WEEK? NO . FEVER NO . FLU LIKE SYMPTOMS? NO . COUGH NO . INTEGUMENTARY: DO YOU HAVE ANY RASHES OR OPEN SORES? NO . ALLERGIC/IMMUNO: ARE YOU ALLERGIC TO IV DYE? NO . ANY NEW ALLERGIES? NO . PSYCHIATRIC: DO YOU HAVE THOUGHTS OF HURTING YOURSELF OR SOMEONE ELSE? NO . ARE YOU ABUSED, NEGLECTED, OR IN AN UNSAFE ENVIRONMENT? NO . ENDOCRINOLOGY: ARE YOU DIABETIC? NO . OTHER: DO YOU NEED ANY PRESCRIPTIONS? NO . IF YES, PLEASE LIST: ____ . ANY NEW PROBLEMS WITH YOUR MEDICATIONS? NO . WHEN DID YOU LAST EAT? ____ . WHEN DID YOU LAST DRINK? ____ . WHAT DID YOU LAST DRINK? ____ . NAME OF PERSON DRIVING YOU HOME? ____ . DO YOU HAVE ANY OTHER QUESTIONS OR CONCERNS NO . VITAL SIGNS WT 197.4 LBS, HT 67", BMI 30.91 INDEX, BP 134/88 MM HG, HR 91 /MIN, RR 18 /MIN, TEMP 97.4 F, OXYGEN SAT % 99%, SAFE IN ENV? (Y/N) YES, NA INITIALS AW 1048, REVIEWED BY: VD. EXAMINATION GENERAL EXAMINATION: PATIENT IS ALERT O X 3 AND COOPERATIVE. TENDERNESS OVER THE THORACIC SPINE. PAIN INCREASES OVER THE THORACIC FACET JOINTS WITH EXTENSION AND LATERAL ROTATION OF THE BACK. MRI OF THE THORACIC SPINE DONE ON 09/04/2016 SHOWS NO EVIDENCE OF SIGNIFICANT THORACIC DISC PROTRUSION. ASSESSMENTS PAIN IN THORACIC SPINE - M54.6 (PRIMARY) OTHER CHRONIC PAIN - G89.29 SPONDYLOSIS OF THORACIC REGION WITHOUT MYELOPATHY OR RADICULOPATHY - M47.814 MYALGIA, OTHER SITE - M79.18 TREATMENT PAIN IN THORACIC SPINE CLINICAL NOTES: WE DISCUSSED SEVERAL ISSUES WITH MS. ALMONTE'S PAIN MANAGEMENT CASE. I DISCUSSED WITH THE PATIENT ABOUT THE OPTION OF PERFORMING DIAGNOSTIC TESTS TO CONSIDER A COOL RADIOFREQUENCY PROCEDURE IN THE FUTURE. FOR NOW, I AM INCREASING THE PATIENT'S LYRICA FROM 200 TO 225 MG TO HELP WITH NEUROPATHIC PAIN SINCE THE TRIGGER POIN INJECTION DID NOT HELP HER. PATIENT BROUGHT HER MEDICATIONS IN THEIR ORIGINAL BOTTLES TO TODAY'S VISIT. ISTOP _# [id number] WAS REVIEWED. URINE TOXICOLOGY DONE ON 10/20/2018 SHOWS CONCURRENT RESULTS. ANOTHER UTOX AND PILL COUNTING WILL BE PERFORMED TODAY. INSTRUCTIONS WERE GIVEN, QUESTIONS WERE ANSWERED, PATIENT REPORTS UNDERSTANDING AND AGREES WITH THE PLAN. I, CYRUS PALMER, DOCUMENTED THE ABOVE INFORMATION ACTING A SCRIBE FOR DR. ZEPEDA. I HAVE REVIEWED THE ABOVE DOCUMENT, WRITTEN BY CYRUS PALMER SCRIBKarissa AND I VERIFY THAT IT IS ACCURATE. . OTHERS REFILL LYRICA CAPSULE, 225 MG, 1 CAPSULE, ORALLY, THREE TIMES A DAY MDD3, 30 DAYS, 90, REFILLS 0 PROCEDURE CODES FA211 ESTABILISHED PATIENT [facility] FACILITY CHARGE [id number] CURRENT MEDS W/DOSAGES DOCUMENTED G8730 PAIN ASSESS POS TOOL F/U PLAN DOC DISPOSITION & COMMUNICATION FOLLOW UP REASON: F/U WITH NUT GRADER, MEDS ELECTRONICALLY SIGNED BY HARRISON ZEPEDA MD, ON 05/18/2019 AT 01:32 PM EDT DISCLAIMER : THIS IS A VISIT SUMMARY EXTRACTED FROM THE [email or web address] CHART. IT IS NOT A COPY OF THE [employer] PROGRESS NOTE. MTDD
== END ==
LOC: M PAIN 10:45
PROVIDERS: ATTEND Anesthesiology
DX: M54.6 Pain in thoracic spine (principal); G89.29 Other chronic pain; M47.814 Spondylosis without myelopathy or radiculopathy, thoracic region; M79.18 Myalgia, other site; Z86.59 Personal history of other mental and behavioral disorders; G43.909 Migraine, unspecified, not intractable, without status migrainosus; J45.909 Unspecified asthma, uncomplicated; G47.33 Obstructive sleep apnea (adult) (pediatric); Z98.84 Bariatric surgery status; F17.210 Nicotine dependence, cigarettes, uncomplicated; Z88.5 Allergy status to narcotic agent; Z88.8 Allergy status to other drugs, medicaments and biological substances; Z91.040 Latex allergy status; Z86.14 Personal history of Methicillin resistant Staphylococcus aureus infection; Z79.891 Long term (current) use of opiate analgesic; Z79.899 Other long term (current) drug therapy

== ENCOUNTER → 2019-05-25 | Outpatient (CLI) | payer OTHER ==
[~2019-05-25] MED LIST changes: -OMEP40CA2 PO; +OMEP40CA97 PO
--- NOTE | 2019-06-01 23:25 | ECWPNPC ---
PATIENT NAME: ADELA ALMONTE : 1980 GENDER: FEMALE VISIT DATE: 05/25/2019 DISCHARGE DATE: 05/25/19 1130 VISIT LOCKED DATE TIME: PHYSICIAN: RAVEN CORDON RESOURCE: RAVEN CORDON REASON FOR APPOINTMENT 1. POST RF HISTORY OF PRESENT ILLNESS HISTORY OF PRESENT ILLNESS: PAIN THE PATIENT DESCRIBES THE PAIN... 39 YEAR OLD FEMALE IN FOR POST RF PROCEDURE. SHE FEELS THE PROCEDURE WORKED WELL AND RATES HER PAIN AT A 4/10 CURRENTLY AND DESCRIBES IT ACHING, BURNING, SORE, TENDER, SHARP, STABBING, SHOOTING, PINS AND NEEDLES. SHE STATES PRIOR TO THE PROCEDURE SHE WOULD RATE HER PAIN AT A 7/10 DOWN TO A 4/10 AND THIS CONTINUES TODAY. SHE WOULD LIKE TO DISCUSS A DIAGNOSTIC FACET FOR HER THORACIC SPINE FOR THE COOL RF. FALL RISK SCREENING: SCREENING :NO FALLS REPORTED IN THE LAST YEAR CURRENT MEDICATIONS TAKING LYRICA 200 MG CAPSULE 1 CAPSULE ORALLY THREE TIMES A DAY MDD3 TAKING POTASSIUM CHLORIDE ER 20 MEQ TABLET EXTENDED RELEASE 1 TABLET WITH FOOD ORALLY ONCE A DAY TAKING CUVITRU 4 GM/20ML SOLUTION 14 GRAMS SUBCUTANEOUS WEEKLY TAKING BUSPIRONE HCL 30 MG TABLET 1 TABLET ORALLY TWICE A DAY TAKING VYVANSE 70 MG CAPSULE 1 CAPSULE IN THE MORNING ORALLY ONCE A DAY TAKING VRAYLAR 3 MG CAPSULE 1 CAPSULE ORALLY ONCE A DAY TAKING KETOCONAZOLE 2 % CREAM 1 APPLICATION TO AFFECTED AREA EXTERNALLY ONCE A DAY TO BOTH FEET, NOTES: > 1 WEEK TAKING PHENERGAN 25 MG TABLET 1 TABLET ORALLY EVERY 6 HRS PRN NAUSEA TAKING AMMONIUM LACTATE 10 % LOTION 1 APPLICATION TO AFFECTED AREA EXTERNALLY TWICE A DAY TAKING ESTRADIOL 0.025 MG/24HR PATCH TWICE WEEKLY 1 PATCH TO SKIN TRANSDERMAL TWO TIMES A WEEK TAKING LOSARTAN POTASSIUM 25 MG TABLET 1 TABLET ORALLY ONCE A DAY TAKING MOVANTIK 25 MG TABLET 1 TABLET IN THE MORNING ORALLY ONCE A DAY TAKING TIZANIDINE HCL 4 MG TABLET 1 TABLET NEEDED ORALLY FOR SPASMS AND PAIN Q8H PRN MDD3 TAKING LASIX 20 MG TABLET 1 TABLET ORALLY ONCE A DAY TAKING NARATRIPTAN HCL 2.5 MG TABLET 1 TABLET NEEDED ONE TIME AT ONSET OF [place] ORALLY MAY REPEAT IN 2 HRS ONCE A DAY MDD2 TAKING IMITREX 4 MG/0.5ML SOLUTION 1 INJECTION NEEDED AT THE ONSET OF A [place] SUBCUTANEOUS REPEAT TIMES ONE IF NOT EFFECTIVE (DR CJ) TAKING BELBUCA 150 MCG FILM 1 FILM TO THE GUM BUCALLY EVERY 12 HRS TAKING ACETAMINOPHEN 500 MG CAPSULE 1 CAPSULES NEEDED ORALLY EVERY 6 HRS PRN TAKING PROTONIX 40 MG TABLET DELAYED RELEASE 1 TABLET ORALLY DAILY TAKING NIFEDIPINE 20 MG CAPSULE 1 CAPSULE ORALLY DAILY TAKING FERROUS SULFATE 325 (65 FE) MG TABLET 1 TABLET ORALLY EVERY OTHER DAY TAKING FLUTICASONE PROPIONATE 50 MCG/ACT SUSPENSION 1 SPRAY IN EACH NOSTRIL NASALLY ONCE A DAY TAKING IBUPROFEN 800 MG TABLET 1 TABLET WITH FOOD OR MILK NEEDED ORALLY THREE TIMES A DAY NEEDED FOR SEVERE HEADACHES TAKING VENTOLIN HFA 108 (90 BASE) MCG/ACT AEROSOL SOLUTION 2 PUFFS NEEDED INHALATION EVERY 4 HRS PRN TAKING ALBUTEROL SULFATE (2.5 MG/3ML) 0.083% NEBULIZATION SOLUTION 1 VIAL INHALATION EVERY 6 HRS PRN TAKING ZYRTEC 10 MG TABLET 1 TABLET NEEDED ORALLY ONCE A DAY NOT-TAKING CLARITIN 10 MG TABLET 1 TABLET ORALLY ONCE A DAY MEDICATION LIST REVIEWED AND RECONCILED WITH THE PATIENT PAST MEDICAL HISTORY SURGICAL MENOPAUSE S/P ELIA & BSO 2009 CHRONIC NECK/MID/LOW BACK PAIN PEPTIC ULCER DISEASE, S/P GASTRIC BYPASS - ON PROTONIX AND CARAFATE BY DR. MILLER BIPOLAR, ANXIETY, DEPRESSION - FOLLWS WITH DR. OTERO ALCOHOLISM MIGRAINE HEADACHES TOBACCO USE ADD CHRONIC RHINITIS/SINUSITIS RAYNAUD'S SYNDROME COMMON VARIABLE IMMUNO DEFICIENCY DISEASE ASTHMA HEART MURMUR - ECHO 10/2017 BORDERLINE LVH, MILD LAE, SUBTLE AV SCLEROSIS, AORTIC SCLEROSIS, MILD AR, MILD MR SLEEP APNEA WITH BIPAP S/P GASTRIC BYPASS FAINTING SPELLS ALLERGIES MORPHINE: , DIFF. BREATHING - ALLERGY LATEX: HIVES - ALLERGY DILAUDID: HIVES, DIFF. BREATHING - ALLERGY REGLAN: HIVES - ALLERGY LAMICTAL: HIVES - ALLERGY DEPAKOTE: CONFUSION - CONTRAINDICATION RISPERDAL: SUICIDAL IDEATION - ALLERGY KETOROLAC TROMETHAMINE: ANAPHYLAXIS - ALLERGY MUSCLE RELAXERS: ALTERED MENTAL STATUS - SIDE EFFECTS GASTROGRAFIN: HIVES - ALLERGY SURGICAL HISTORY LUMBAR LAMINECTOMY [place] 02/11 BACK SURGERY 1997 LAPAROTOMY X 4...CARTHAGE....DR. CRISTOBAL CHOLECYSTECTOMY 07/13 ELIA W/ AGUDELO, APPENDECTOMY - FOR ENDOMETRIOSIS 12/13 GASTRIC BYPASS (DR. CARTAGENA, [facility]) 01/2012 LAPAROSCOPY AND REMOVAL OF ADHESIONS (DR. BARRERA) 12/2012 CHEST TUBE ENDOSCOPY/COLONOSCOPY BLOOD TRANSFUSION BLADDER REPAIR 10/2016 LAPROSCOPC SURGERY FOR ENDOMETRIOSIS / LYSIS OF ADHESIONS AND SCAR TISSUE (BOWEL NICKED IN OR). 12/19/17 EGD - ESOPHAGEAL PLAQUE - BIOPSY RESULTS NOT SENT TO US (DR. MILLER) 05/2018 REMOVAL CYSTS IN BILATERAL EARS REMOVAL OF NEEDLE FROM RIGHT FOOT FAMILY HISTORY FATHER: ALIVE, DIAGNOSED WITH STROKE, CANCER MOTHER: ALIVE, HEART DISEASE, DIABETES, HYPERTENSION FATHER SKIN CANCER\\\\\\\\NSISTER WITH HOSHIMOTO\\\\\\\\\\\\\\'S. SOCIAL HISTORY GENERAL: TOBACCO USE ARE YOU A:CURRENT SMOKER ARE YOU INTERESTED IN QUITTING?NOT READY TO QUIT NO LONGER TAKING CHANTIX COUNSELED THE PATIENT ON SMOKING EFFECTS, EDUCATION [id number]/25/2019 HOW MANY CIGARETTES A DAY DO YOU SMOKE?11-20 HOW SOON AFTER YOU WAKE UP DO YOU SMOKE YOUR FIRST CIGARETTE?AFTER 60 MIN HOW OFTEN DO YOU SMOKE CIGARETTES?EVERY DAY PATIENT COUNSELED ON THE DANGERS OF TOBACCO USE AND URGED TO QUIT:05/25/2019 HIV / HEP-C SCREENING HIV TEST OFFERED TO PATIENT:YES DATE OFFERED:03/13/2017 TEST ACCEPTED:NO HEP-C TEST OFFERED TO PATIENT:NO REASON:PATIENT DECLINED EDUCATION LEVEL OF EDUCATION:NOT FINISHED COLLEGE DIET: REGULAR. LANGUAGE LANGUAGES SPOKEN:YORUBA DOMESTIC VIOLENCE DO YOU FEEL SAFE IN YOUR ENVIRONMENT?YES BMI CARE GOAL FOLLOW-UP ABOVE NORMAL BMI FOLLOW-UPDIETARY MANAGEMENT EDUCATION, GUIDANCE, AND COUNSELING, DIETARY NEEDS EDUCATION, EXERCISE PROMOTION: STRENGTH TRAINING RECREATIONAL DRUG USE DRUG USE?NO EXERCISE: NO REGULAR EXERCISE. LEARNING BARRIERS / SPECIAL NEEDS CHANGE FROM LAST VISIT?NO BARRIERS TO LEARNING?NO HEARING IMPAIRED?NO VISION IMPAIRED?NO COGNITIVELY IMPAIRED?NO READINESS TO LEARN?YES LEARNING PREFERENCES?NO LEARNING CAPABILITIES PRESENT?YES EMOTIONAL BARRIERS?NO SPECIAL DEVICES?NO FURNACE SETTER NEEDED?NO LUNG CANCER SCREENING SMOKING STATUS:CURRENT SMOKER PAIN CLINIC PFS, CLERGY, PUBLIC HEALTH REFERRALS PFS REFERRAL NEEDED?NO CLERGY REFERRAL NEEDED?NO PUBLIC HEALTH REFERRAL NEEDED?NO WAS THE PROVIDER NOTIFIED OF ANY PERTINENT INFO? N/A HAS THE PATIENT BEEN EDUCATED REGARDING HIS/HER PLAN OF CARE?YES HAS THE PATIENT BEEN EDUCATED REGARDING PAIN, THE RISK FOR PAIN, THE IMPORTANCE OF EFFECTIVE PAIN MANAGEMENT, AND THE PAIN ASSESSMENT PROCESS?YES LATEX QUESTIONNAIRE LATEX ALLERGY : HAVE YOU EVER DEVELOPED ANY TYPE OF REACTION AFTER HANDLING LATEX PRODUCTS SUCH RUBBER GLOVES, CONDOMS, DIAPHRAGMS, BALLOONS, SOCKS, OR UNDERWEAR?YES LATEX ALLERGY : HAVE YOU EVER DEVELOPED ANY TYPE OF REACTION DURING OR AFTER DENTAL APPOINTMENT, VAGINAL/RECTAL EXAMINATION, SURGICAL PROCEDURE, OR ANY OTHER EXPOSURE?YES - PLEASE INDICATE :RUBBER GLOVES, CONDOMS, UNDERWEAR, OTHER (DOCUMENT IN NOTES) BRAS - PLEASE INDICATE :VAGINAL EXAM DATE ASKED : 05/07/2019 LATEX RISK : HAVE YOU EVER HAD ANY DIFFICULTY BREATHING OR HIVES AFTER EATING OR HANDLING ANY FRUITS, OR VEGETABLES; SUCH KIWI, BANANAS, STONE FRUITS, OR CHESTNUTSNO LATEX RISK : DO YOU HAVE A PREVIOUS PERSONAL HISTORY OF MORE THAN NINE SURGERIES, SPINA BIFIDA, OR REPEATED CATHERIZATIONS? YES - PLEASE INDICATE : > 9 SURGERIES LATEX RISK : ARE YOU FREQUENTLY EXPOSED TO LATEX PRODUCTS IN YOUR OCCUPATION?NO CAFFEINE CAFFEINE USE?YES 2-3 CUPS COFFEE & ICED TEA THROUGH THE DAY. ADVANCE DIRECTIVE ADVANCE DIRECTIVE DISCUSSED WITH PATIENT:YES PT. DOES NOT HAVE ANY ADVANCED DIREDCTIVES AND SHE DECLINES INFORMATION ON HCP AT THIS TIME.05/03/19 BAPTIST [id number] LATTER-DAY MARITAL STATUS: SINGLE. ALCOHOL SCREENING DID YOU HAVE A DRINK CONTAINING ALCOHOL IN THE PAST YEAR?NO POINTS0 INTERPRETATIONNEGATIVE OCCUPATION: UNEMPLOYED. SEXUAL HX HAD SEX IN THE LAST 12 MONTHS (VAGINAL, ORAL, OR ANAL)?NO LMP:2009 HAVE YOU EVER HAD AN STD?NO REVIEWED WITH PT 06/23/18 1154 BVREVIEWED WITH PATIENT 07/07/18 1158 JS11/05/18 REVIEWED WITH PT. AD12/07/18 REVIEWED WITH PT. AD04/16/19 REVIEWED WITH PT 1204 LASREVIEWED WITH PATIENT 05/25/19 1055 NLJREVIEWED WITH PATIENT 05/25/19 NLJREVIEWED WITH PT 05/03/19 0945 BV. HOSPITALIZATION/MAJOR DIAGNOSTIC PROCEDURE SURGERY RELATED [facility] ([facility]) 05/2012 ADMITTED TO [facility] 12/2015 [facility] 10/2015 [facility] DAY HOSPITAL STAY DUE TO NICKED BOWEL 12/19/2017 PNEUMONIA 07/2018 REVIEW OF SYSTEMS REVIEWED BY: PROVIDER: ENRIQUETA KNUTSON . CONSTITUTIONAL: ANY CHANGE IN YOUR MEDICAL CONDITION? NO . CHILLS NO . FEVER NO . INFECTION: DO YOU HAVE NEW INFECTIONS? NO . DO YOU HAVE HISTORY OF MRSA? YES . MUSCULOSKELETAL: ANY NEW PATTERNS OF PAIN OR NUMBNESS? YES- PAIN IN MID BACK HAS INCREASED, STATES SHE HAS EXTREME MID BCK PAIN, STATES SHE HAS DICUSSED A RADIOFREQUENCY WITH "NEW MACHINE" WITH DR. ZEPEDA, ALSO DISCUSSED DIAGNOSTIC FACET WITH DR ZEEPDA UNTIL MACHINE COMES AND PT STATES SHE IS READY TO TRY DIAGNOSTIC TO MID BACK . GASTROENTEROLOGY: ANY NEW CHANGE IN BOWEL CONTROL? NO . GENITOURINARY: ANY NEW CHANGE IN BLADDER CONTROL? NO . IS THERE A CHANCE YOU COULD BE ? NO . HEMATOLOGY/LYMPH: DO YOU TAKE ANY BLOOD THINNERS? (FOR EXAMPLE- COUMADIN, PLAVIX, AGGRENOX, PLATEL, PRADAXA, OR XARELTO) NO . WHEN WAS YOUR LAST DOSE? DATE: TIME: . NEUROLOGY: HAVE YOU FALLEN IN THE PAST 12 MONTHS? NO . ANY NEW EXTREMITY NUMBNESS OR WEAKNESS? YES- MID BACK TINGLING STATES DOES NOT RADIATE DOWN LEGS . CARDIOLOGY: DO YOU HAVE A PACEMAKER OR DEFIBRILLATOR? NO . RESPIRATORY: HAVE YOU BEEN SICK IN THE PAST WEEK? NO . FEVER NO . FLU LIKE SYMPTOMS? NO . COUGH NO . INTEGUMENTARY: DO YOU HAVE ANY RASHES OR OPEN SORES? NO . ALLERGIC/IMMUNO: ARE YOU ALLERGIC TO IV DYE? NO . ANY NEW ALLERGIES? NO . PSYCHIATRIC: DO YOU HAVE THOUGHTS OF HURTING YOURSELF OR SOMEONE ELSE? NO . ARE YOU ABUSED, NEGLECTED, OR IN AN UNSAFE ENVIRONMENT? NO . ENDOCRINOLOGY: ARE YOU DIABETIC? NO . OTHER: DO YOU NEED ANY PRESCRIPTIONS? YES- LYRICA AND BELBUCA . IF YES, PLEASE LIST: ____LYRICA, AND STATES SHE NEEDS BELBUCA BUT WAS TOLD SHE NEEDS A PRIOR AUTH FOR BELBUCA BUT STATES SHE HAS BEEN GETTING IT . ANY NEW PROBLEMS WITH YOUR MEDICATIONS? NO . WHEN DID YOU LAST EAT? ____ . WHEN DID YOU LAST DRINK? ____ . WHAT DID YOU LAST DRINK? ____ . NAME OF PERSON DRIVING YOU HOME? ____ . DO YOU HAVE ANY OTHER QUESTIONS OR CONCERNS NO . VITAL SIGNS WT 197.4 LBS, HT 67", BMI 30.91 INDEX, BP 129/76 MM HG, HR 73 /MIN, RR 18 /MIN, TEMP 97.1 F, OXYGEN SAT % 97%, SAFE IN ENV? (Y/N) YES, NA INITIALS SC 10:44, REVIEWED BY: MILLER. EXAMINATION GENERAL EXAMINATION: GENERALNO ACUTE DISTRESS, WELL NOURISHED AND HYDRATED. PSYCHAPPROPRIATE MOOD AND AFFECT . LUNGS:CLEAR TO AUSCULTATION BILATERALLY, NO WHEEZES, RHONCHI, RALES. HEART:NO MURMURS, REGULAR RATE AND RHYTHM. BACK:POINT TENDER OVER THORACIC SPINE, SURROUNDING SKIN SHOWS NO ERYTHEMA, ECCHYMOSIS, INCREASED WARMTH, AND/OR SKIN ERUPTIONS. . ASSESSMENTS INTERVERTEBRAL DISC DISORDERS WITH RADICULOPATHY, LUMBAR REGION - M51.16 (PRIMARY) PAIN IN THORACIC SPINE - M54.6 TREATMENT INTERVERTEBRAL DISC DISORDERS WITH RADICULOPATHY, LUMBAR REGION [facility] MRI SPINE,THORACIC WITHOUT [id number],ADAMA 05/25/2019 2:56:50 PM > MALORIE LOPEZ 05/25/2019 1:53:50 PM > APPROVED FOR [facility], AUTH [id number] CLINICAL NOTES: 39 YEAR OLD FEMALE IN FOR POST RF PROCEDURE. GIVEN PRESENTING SYMPTOMS AND RESULTS OF PHYSICAL EXAMINATION RECOMMENDED GETTING AN UPDATED MRI AND THEN POTENTIAL DIAGNOSTIC AFTER. ALSO DISCUSSED AN INCREASE IN LYRICA PATIENT STATES THIS IS WORKING WELL FOR HER BUT QUESTIONS IF AN INCREASE WOULD BENEFIT HER MORE. PATIENT HAS EXPRESSED UNDERSTANDING OF AND WAS IN AGREEMENT WITH TREATMENT PLAN. GIVEN TIME TO ASK QUESTIONS AND EXPRESS CONCERNS. , ISTOP REGISTRY REVIEWED AND DEMONSTRATES COMPLLIANCE. (REF #[id number] ) BRINGS IN MEDICATIONS WHICH IS APPROPRIATE FOR WHAT WAS DISPENSED. RECENT URINE TOXICOLOGY REVIEWED. NO UNAUTHORIZED MEDICATIONS. NO ILLICIT SUBSTANCES AND PRESCRIBED MEDICATIONS WERE PRESENT. DISPOSITION & COMMUNICATION FOLLOW UP 6 WEEKS (REASON: MRI RESULTS ) ELECTRONICALLY SIGNED BY JAKUB VILLEDA ON 06/01/2019 AT 09:30 AM EDT DISCLAIMER : THIS IS A VISIT SUMMARY EXTRACTED FROM THE [facility] CHART. IT IS NOT A COPY OF THE [facility] PROGRESS NOTE. MTDD
== END ==
LOC: M PAIN 10:45
PROVIDERS: ATTEND Family Medicine
DX: M51.16 Intervertebral disc disorders with radiculopathy, lumbar region (principal); Z98.84 Bariatric surgery status; Z86.59 Personal history of other mental and behavioral disorders; G43.909 Migraine, unspecified, not intractable, without status migrainosus; J45.909 Unspecified asthma, uncomplicated; G47.30 Sleep apnea, unspecified; F17.210 Nicotine dependence, cigarettes, uncomplicated; Z88.5 Allergy status to narcotic agent; Z88.8 Allergy status to other drugs, medicaments and biological substances; Z91.040 Latex allergy status; Z79.899 Other long term (current) drug therapy

== ENCOUNTER → 2019-06-02 | Outpatient (CLI) | payer OTHER ==
[~2019-06-02] MED LIST changes: +OMEP40CA2 PO; -OMEP40CA97 PO
--- NOTE | 2019-06-02 12:08 | REP ---
MRI of the thoracic spine without contrast Indication: Thoracic pain. Comparison: MRI of the thoracic spine of 09/04/2016. Technique: MRI of the thoracic spine was performed utilizing sagittal T2, sagittal T1, sagittal STIR, axial T1 and axial T2 imaging. No the adrenals contrast was administered. Findings: There is normal alignment and curvature of the thoracic spine. Vertebral body heights and intervertebral disc heights are maintained. There is irregularity of the T7 inferior endplate, likely related to Schmorl's node. There is no marrow edema. There is no suspicious focal marrow signal abnormality. The visualized spinal cord is normal in signal intensity and contour. There is no significant spinal canal stenosis or neural foraminal compromise. The paraspinal soft tissues are within normal limits. Impression: No significant spinal canal stenosis or neural foraminal compromise within the thoracic spine. Electronically Signed by Santiago Glaser MD 06/02/2019 08:35 A
== END ==
LOC: M RAD 07:24
PROVIDERS: ATTEND Family Medicine
DX: M54.6 Pain in thoracic spine (principal)

== ENCOUNTER → 2019-07-05 | Outpatient (CLI) | payer OTHER ==
--- NOTE | 2019-07-07 00:46 | ECWPNPC ---
PATIENT NAME: ADELA ALMONTE : 1980 GENDER: FEMALE VISIT DATE: 07/05/2019 DISCHARGE DATE: 07/05/19 1015 VISIT LOCKED DATE TIME: PHYSICIAN: RAVEN CORDON RESOURCE: RAVEN CORDON REASON FOR APPOINTMENT 1. 2 MONTHS, MIGRANES HISTORY OF PRESENT ILLNESS HISTORY OF PRESENT ILLNESS: PAIN THE PATIENT DESCRIBES THE PAIN... 39-YEAR-OLD FEMALE IN FOR CHRONIC PAIN FOLLOW-UP. SHE RATES HER PAIN CURRENTLY AT A 7 OUT OF 10 AND DESCRIBES IT ACHING, BURNING, SORE, SHARP, STABBING, SHOOTING, AND TENDER. SHE FURTHER STATES SHE HAS NUMBNESS AND TINGLING IN HER FEET. SHE WOULD LIKE TO DISCUSS THESE OF TOPAMAX TO HELP PREVENT MIGRAINES. FALL RISK SCREENING: SCREENING :NO FALLS REPORTED IN THE LAST YEAR CURRENT MEDICATIONS TAKING CUVITRU 4 GM/20ML SOLUTION 14 GRAMS SUBCUTANEOUS WEEKLY TAKING BUSPIRONE HCL 30 MG TABLET 1 TABLET ORALLY TWICE A DAY TAKING VYVANSE 70 MG CAPSULE 1 CAPSULE IN THE MORNING ORALLY ONCE A DAY TAKING VRAYLAR 3 MG CAPSULE 1 CAPSULE ORALLY ONCE A DAY TAKING KETOCONAZOLE 2 % CREAM 1 APPLICATION TO AFFECTED AREA EXTERNALLY ONCE A DAY TO BOTH FEET, NOTES: > 1 WEEK TAKING AMMONIUM LACTATE 10 % LOTION 1 APPLICATION TO AFFECTED AREA EXTERNALLY TWICE A DAY TAKING ESTRADIOL 0.025 MG/24HR PATCH TWICE WEEKLY 1 PATCH TO SKIN TRANSDERMAL TWO TIMES A WEEK TAKING MOVANTIK 25 MG TABLET 1 TABLET IN THE MORNING ORALLY ONCE A DAY TAKING LASIX 20 MG TABLET 1 TABLET ORALLY ONCE A DAY TAKING NARATRIPTAN HCL 2.5 MG TABLET 1 TABLET NEEDED ONE TIME AT ONSET OF MIGRAINE ORALLY MAY REPEAT IN 2 HRS ONCE A DAY MDD2 TAKING IMITREX 4 MG/0.5ML SOLUTION 1 INJECTION NEEDED AT THE ONSET OF A MIGRAINE SUBCUTANEOUS REPEAT TIMES ONE IF NOT EFFECTIVE (DR JC) TAKING ACETAMINOPHEN 500 MG CAPSULE 1 CAPSULES NEEDED ORALLY EVERY 6 HRS PRN TAKING PROTONIX 40 MG TABLET DELAYED RELEASE 1 TABLET ORALLY BID TAKING NIFEDIPINE 20 MG CAPSULE 1 CAPSULE ORALLY DAILY TAKING FERROUS SULFATE 325 (65 FE) MG TABLET 1 TABLET ORALLY EVERY OTHER DAY TAKING FLUTICASONE PROPIONATE 50 MCG/ACT SUSPENSION 1 SPRAY IN EACH NOSTRIL NASALLY ONCE A DAY TAKING IBUPROFEN 800 MG TABLET 1 TABLET WITH FOOD OR MILK NEEDED ORALLY THREE TIMES A DAY NEEDED FOR SEVERE HEADACHES TAKING VENTOLIN HFA 108 (90 BASE) MCG/ACT AEROSOL SOLUTION 2 PUFFS NEEDED INHALATION EVERY 4 HRS PRN TAKING ALBUTEROL SULFATE (2.5 MG/3ML) 0.083% NEBULIZATION SOLUTION 1 VIAL INHALATION EVERY 6 HRS PRN TAKING LYRICA 200 MG CAPSULE 1 CAPSULE ORALLY THREE TIMES A DAY MDD3 TAKING LOSARTAN POTASSIUM 25 MG TABLET 1 TABLET ORALLY ONCE A DAY TAKING BELBUCA 150 MCG FILM 1 FILM TO THE GUM BUCALLY EVERY 12 HRS TAKING PHENERGAN 25 MG TABLET 1 TABLET ORALLY EVERY 6 HRS PRN NAUSEA TAKING ZYRTEC 10 MG TABLET 1 TABLET NEEDED ORALLY ONCE A DAY TAKING LORAZEPAM 1 MG 1 TAB ORAL FOUR TIMES DAILY NOT-TAKING POTASSIUM CHLORIDE ER 20 MEQ TABLET EXTENDED RELEASE 1 TABLET WITH FOOD ORALLY ONCE A DAY NOT-TAKING TIZANIDINE HCL 4 MG TABLET 1 TABLET NEEDED ORALLY FOR SPASMS AND PAIN Q8H PRN MDD3 NOT-TAKING CLARITIN 10 MG TABLET 1 TABLET ORALLY ONCE A DAY MEDICATION LIST REVIEWED AND RECONCILED WITH THE PATIENT PAST MEDICAL HISTORY SURGICAL MENOPAUSE S/P ELIA & BSO 2009 CHRONIC NECK/MID/LOW BACK PAIN PEPTIC ULCER DISEASE, S/P GASTRIC BYPASS - ON PROTONIX AND CARAFATE BY DR. MILLER BIPOLAR, ANXIETY, DEPRESSION - FOLLWS WITH DR. OTERO ALCOHOLISM MIGRAINE HEADACHES TOBACCO USE ADD CHRONIC RHINITIS/SINUSITIS RAYNAUD'S SYNDROME COMMON VARIABLE IMMUNO DEFICIENCY DISEASE ASTHMA HEART MURMUR - ECHO 10/2017 BORDERLINE LVH, MILD LAE, SUBTLE AV SCLEROSIS, AORTIC SCLEROSIS, MILD AR, MILD MR SLEEP APNEA WITH BIPAP S/P GASTRIC BYPASS FAINTING SPELLS ALLERGIES MORPHINE: , DIFF. BREATHING - ALLERGY LATEX: HIVES - ALLERGY DILAUDID: HIVES, DIFF. BREATHING - ALLERGY REGLAN: HIVES - ALLERGY LAMICTAL: HIVES - ALLERGY DEPAKOTE: CONFUSION - CONTRAINDICATION RISPERDAL: SUICIDAL IDEATION - ALLERGY KETOROLAC TROMETHAMINE: ANAPHYLAXIS - ALLERGY MUSCLE RELAXERS: ALTERED MENTAL STATUS - SIDE EFFECTS GASTROGRAFIN: HIVES - ALLERGY SURGICAL HISTORY LUMBAR LAMINECTOMY SYRACUSE 02/11 BACK SURGERY 1997 LAPAROTOMY X 4...CARTHAGE....DR. CRISTOBAL CHOLECYSTECTOMY 07/13 ELIA W/ AGUDELO, APPENDECTOMY - FOR ENDOMETRIOSIS 12/13 GASTRIC BYPASS (DR. CARTAGENA, [facility]) 01/2012 LAPAROSCOPY AND REMOVAL OF ADHESIONS (DR. BARRERA) 12/2012 CHEST TUBE ENDOSCOPY/COLONOSCOPY BLOOD TRANSFUSION BLADDER REPAIR 10/2016 LAPROSCOPC SURGERY FOR ENDOMETRIOSIS / LYSIS OF ADHESIONS AND SCAR TISSUE (BOWEL NICKED IN OR). 12/19/17 EGD - ESOPHAGEAL PLAQUE - BIOPSY RESULTS NOT SENT TO US (DR. MILLER) 05/2018 REMOVAL CYSTS IN BILATERAL EARS REMOVAL OF NEEDLE FROM RIGHT FOOT FAMILY HISTORY FATHER: ALIVE, DIAGNOSED WITH UNSPECIFIED CEREBRAL ARTERY OCCLUSION WITH CEREBRAL INFARCTION, OTHER MALIGNANT NEOPLASM OF UNSPECIFIED SITE MOTHER: ALIVE, DIABETES, HYPERTENSION, UNSPECIFIED HEART DISEASE FATHER SKIN CANCER\\\\\\\\NSISTER WITH HOSHIMOTO\\\\\\\\\\\\\\'S. SOCIAL HISTORY GENERAL: TOBACCO USE ARE YOU A:CURRENT SMOKER ARE YOU INTERESTED IN QUITTING?NOT READY TO QUIT NO LONGER TAKING CHANTIX COUNSELED THE PATIENT ON SMOKING EFFECTS, EDUCATION QVUSYYCG27/30/2019 HOW MANY CIGARETTES A DAY DO YOU SMOKE?11-20 HOW SOON AFTER YOU WAKE UP DO YOU SMOKE YOUR FIRST CIGARETTE?AFTER 60 MIN HOW OFTEN DO YOU SMOKE CIGARETTES?EVERY DAY PATIENT COUNSELED ON THE DANGERS OF TOBACCO USE AND URGED TO QUIT:05/25/2019 HIV / HEP-C SCREENING HIV TEST OFFERED TO PATIENT:YES DATE OFFERED:03/13/2017 TEST ACCEPTED:NO HEP-C TEST OFFERED TO PATIENT:NO REASON:PATIENT DECLINED EDUCATION LEVEL OF EDUCATION:NOT FINISHED COLLEGE DIET: REGULAR. LANGUAGE LANGUAGES SPOKEN:[place] CITIZEN DOMESTIC VIOLENCE DO YOU FEEL SAFE IN YOUR ENVIRONMENT?YES BMI CARE GOAL FOLLOW-UP ABOVE NORMAL BMI FOLLOW-UPDIETARY MANAGEMENT EDUCATION, GUIDANCE, AND COUNSELING, DIETARY NEEDS EDUCATION, EXERCISE PROMOTION: STRENGTH TRAINING RECREATIONAL DRUG USE DRUG USE?NO EXERCISE: NO REGULAR EXERCISE. LEARNING BARRIERS / SPECIAL NEEDS CHANGE FROM LAST VISIT?NO BARRIERS TO LEARNING?NO HEARING IMPAIRED?NO VISION IMPAIRED?NO COGNITIVELY IMPAIRED?NO READINESS TO LEARN?YES LEARNING PREFERENCES?NO LEARNING CAPABILITIES PRESENT?YES EMOTIONAL BARRIERS?NO SPECIAL DEVICES?NO CRIB TENDER NEEDED?NO LUNG CANCER SCREENING SMOKING STATUS:CURRENT SMOKER PAIN CLINIC PFS, CLERGY, PUBLIC HEALTH REFERRALS PFS REFERRAL NEEDED?NO CLERGY REFERRAL NEEDED?NO PUBLIC HEALTH REFERRAL NEEDED?NO WAS THE PROVIDER NOTIFIED OF ANY PERTINENT INFO? N/A HAS THE PATIENT BEEN EDUCATED REGARDING HIS/HER PLAN OF CARE?YES HAS THE PATIENT BEEN EDUCATED REGARDING PAIN, THE RISK FOR PAIN, THE IMPORTANCE OF EFFECTIVE PAIN MANAGEMENT, AND THE PAIN ASSESSMENT PROCESS?YES LATEX QUESTIONNAIRE LATEX ALLERGY : HAVE YOU EVER DEVELOPED ANY TYPE OF REACTION AFTER HANDLING LATEX PRODUCTS SUCH RUBBER GLOVES, CONDOMS, DIAPHRAGMS, BALLOONS, SOCKS, OR UNDERWEAR?YES LATEX ALLERGY : HAVE YOU EVER DEVELOPED ANY TYPE OF REACTION DURING OR AFTER DENTAL APPOINTMENT, VAGINAL/RECTAL EXAMINATION, SURGICAL PROCEDURE, OR ANY OTHER EXPOSURE?YES - PLEASE INDICATE :RUBBER GLOVES, CONDOMS, UNDERWEAR, OTHER (DOCUMENT IN NOTES) BRAS - PLEASE INDICATE :VAGINAL EXAM DATE ASKED : 05/07/2019 LATEX RISK : HAVE YOU EVER HAD ANY DIFFICULTY BREATHING OR HIVES AFTER EATING OR HANDLING ANY FRUITS, OR VEGETABLES; SUCH KIWI, BANANAS, STONE FRUITS, OR CHESTNUTSNO LATEX RISK : DO YOU HAVE A PREVIOUS PERSONAL HISTORY OF MORE THAN NINE SURGERIES, SPINA BIFIDA, OR REPEATED CATHERIZATIONS? YES - PLEASE INDICATE : > 9 SURGERIES LATEX RISK : ARE YOU FREQUENTLY EXPOSED TO LATEX PRODUCTS IN YOUR OCCUPATION?NO CAFFEINE CAFFEINE USE?YES 2-3 CUPS COFFEE & ICED TEA THROUGH THE DAY. ADVANCE DIRECTIVE ADVANCE DIRECTIVE DISCUSSED WITH PATIENT:YES PT. DOES NOT HAVE ANY ADVANCED DIREDCTIVES AND SHE DECLINES INFORMATION ON HCP AT THIS TIME PROTESTANT [id number] CONGREGATION MARITAL STATUS: SINGLE. ALCOHOL SCREENING DID YOU HAVE A DRINK CONTAINING ALCOHOL IN THE PAST YEAR?NO POINTS0 INTERPRETATIONNEGATIVE OCCUPATION: UNEMPLOYED. SEXUAL HX HAD SEX IN THE LAST 12 MONTHS (VAGINAL, ORAL, OR ANAL)?NO LMP:2009 HAVE YOU EVER HAD AN STD?NO REVIEWED WITH PT 06/23/18 1154 BVREVIEWED WITH PATIENT 07/07/18 1158 JS11/05/18 REVIEWED WITH PT. AD12/07/18 REVIEWED WITH PT. AD04/16/19 REVIEWED WITH PT 1204 LASREVIEWED WITH PATIENT 05/25/19 1055 NLJREVIEWED WITH PATIENT 05/25/19 NLJREVIEWED WITH PT 05/03/19 0945 BV. HOSPITALIZATION/MAJOR DIAGNOSTIC PROCEDURE SURGERY RELATED [facility] ([facility]) 05/2012 ADMITTED TO [facility] 12/2015 [facility] 10/2015 [facility] 2 DAY HOSPITAL STAY DUE TO NICKED BOWEL 12/19/2017 PNEUMONIA 07/2018 REVIEW OF SYSTEMS REVIEWED BY: PROVIDER: ENRIQUETA KNUTSON . CONSTITUTIONAL: ANY CHANGE IN YOUR MEDICAL CONDITION? NO . CHILLS NO . FEVER NO . INFECTION: DO YOU HAVE NEW INFECTIONS? NO . DO YOU HAVE HISTORY OF MRSA? YES . MUSCULOSKELETAL: ANY NEW PATTERNS OF PAIN OR NUMBNESS? NO . GASTROENTEROLOGY: ANY NEW CHANGE IN BOWEL CONTROL? NO . GENITOURINARY: ANY NEW CHANGE IN BLADDER CONTROL? NO . IS THERE A CHANCE YOU COULD BE ? NO . HEMATOLOGY/LYMPH: DO YOU TAKE ANY BLOOD THINNERS? (FOR EXAMPLE- COUMADIN, PLAVIX, AGGRENOX, PLATEL, PRADAXA, OR XARELTO) NO . WHEN WAS YOUR LAST DOSE? DATE: TIME: . NEUROLOGY: HAVE YOU FALLEN IN THE PAST 12 MONTHS? NO . ANY NEW EXTREMITY NUMBNESS OR WEAKNESS? NO . CARDIOLOGY: DO YOU HAVE A PACEMAKER OR DEFIBRILLATOR? NO . RESPIRATORY: HAVE YOU BEEN SICK IN THE PAST WEEK? YES, URI GOING TO SEE PCP FOR THIS . FEVER NO . FLU LIKE SYMPTOMS? NO . COUGH NO . INTEGUMENTARY: DO YOU HAVE ANY RASHES OR OPEN SORES? NO . ALLERGIC/IMMUNO: ARE YOU ALLERGIC TO IV DYE? NO . ANY NEW ALLERGIES? NO . PSYCHIATRIC: DO YOU HAVE THOUGHTS OF HURTING YOURSELF OR SOMEONE ELSE? NO . ARE YOU ABUSED, NEGLECTED, OR IN AN UNSAFE ENVIRONMENT? NO . ENDOCRINOLOGY: ARE YOU DIABETIC? NO . OTHER: DO YOU NEED ANY PRESCRIPTIONS? YES, LYRICA . IF YES, PLEASE LIST: ____ . ANY NEW PROBLEMS WITH YOUR MEDICATIONS? NO . WHEN DID YOU LAST EAT? ____ . WHEN DID YOU LAST DRINK? ____ . WHAT DID YOU LAST DRINK? ____ . NAME OF PERSON DRIVING YOU HOME? ____ . DO YOU HAVE ANY OTHER QUESTIONS OR CONCERNS YES, TIZANIDINE DOESN'T WORK ANYMORE, WANT TO DISCUSS GOING ON A NEW MUSCLE RELAXANT AND HEADACHE MANAGEMENT . VITAL SIGNS WT 196.0 LBS, HT 67", BMI 30.69 INDEX, BP 110/72 MM HG, HR 115 /MIN, RR 18 /MIN, TEMP 97.4 F, OXYGEN SAT % 98%, NA INITIALS AW 0900, REVIEWED BY: EM. EXAMINATION GENERAL EXAMINATION: GENERALNO ACUTE DISTRESS, WELL NOURISHED AND HYDRATED. PSYCHAPPROPRIATE MOOD AND AFFECT . LUNGS:CLEAR TO AUSCULTATION BILATERALLY, NO WHEEZES, RHONCHI, RALES. HEART:NO MURMURS, REGULAR RATE AND RHYTHM. ASSESSMENTS CHRONIC MIGRAINE WITHOUT AURA, NOT INTRACTABLE, WITHOUT STATUS MIGRAINOSUS - G43.709 (PRIMARY) SPONDYLOSIS OF THORACIC REGION WITHOUT MYELOPATHY OR RADICULOPATHY - M47.814 TREATMENT CHRONIC MIGRAINE WITHOUT AURA, NOT INTRACTABLE, WITHOUT STATUS MIGRAINOSUS START TOPAMAX TABLET, 25 MG, 1 TABLET, ORALLY, ONCE A DAY, 30 DAY(S), 30 REFILL LYRICA CAPSULE, 200 MG, 1 CAPSULE, ORALLY, THREE TIMES A DAY MDD3, 30 DAYS, 90 CLINICAL NOTES: 39-YEAR-OLD FEMALE IN FOR CHRONIC PAIN FOLLOW-UP. DISCUSSED THE USE OF TOPAMAX WITH PATIENT IN THE PREVENTION OF MIGRAINES. FURTHER DISCUSSED MRI RESULTS WITH PATIENT. GIVEN PRESENTING SYMPTOMS AND RESULTS OF PHYSICAL EXAMINATION RECOMMENDED STARTING TOPAMAX 25 MG DAILY WITH FOLLOW-UP IN 1 MONTH TO DETERMINE EFFICACY OF TREATMENT. GIVEN MRI RESULTS NO NEW ORDERS AT THIS TIME MRI RESULTS WERE NEGATIVE. PATIENT HAS EXPRESSED UNDERSTANDING OF AND WAS IN AGREEMENT WITH TREATMENT PLAN. GIVEN TIME TO ASK QUESTIONS AND EXPRESS CONCERNS., ISTOP REGISTRY REVIEWED AND DEMONSTRATES COMPLLIANCE. (REF # [id number] ) BRINGS IN MEDICATIONS WHICH IS APPROPRIATE FOR WHAT WAS DISPENSED. RECENT URINE TOXICOLOGY REVIEWED. NO UNAUTHORIZED MEDICATIONS. NO ILLICIT SUBSTANCES AND PRESCRIBED MEDICATIONS WERE PRESENT. SPONDYLOSIS OF THORACIC REGION WITHOUT MYELOPATHY OR RADICULOPATHY CLINICAL NOTES: MRI RESULTS DISCUSSED WITH PATIENT NO NEW ORDERS AT THIS TIME. PREVENTIVE MEDICINE PAIN CLINIC TEACHING: MEDICATIONS PRINTED INFORMATION ON TOPAMAX GIVEN TO AND REVIEWED WITH PT AND SHE VERBALIZED UNDERSTANDING. AD. PROCEDURE CODES FA211 ESTABILISHED [facility] CHARGE DISPOSITION & COMMUNICATION FOLLOW UP 4 WEEKS (REASON: MEDICATION CHANGE) ELECTRONICALLY SIGNED BY JAKUB VILLEDA ON 07/06/2019 AT 08:43 AM EDT DISCLAIMER : THIS IS A VISIT SUMMARY EXTRACTED FROM THE [employer] CHART. IT IS NOT A COPY OF THE [employer] PROGRESS NOTE. N[facility]ITAD
== END ==
LOC: M PAIN 09:00
PROVIDERS: ATTEND Family Medicine
DX: G43.709 Chronic migraine without aura, not intractable, without status migrainosus (principal); M47.814 Spondylosis without myelopathy or radiculopathy, thoracic region; G89.29 Other chronic pain; Z86.59 Personal history of other mental and behavioral disorders; J45.909 Unspecified asthma, uncomplicated; G47.30 Sleep apnea, unspecified; Z98.84 Bariatric surgery status; F17.210 Nicotine dependence, cigarettes, uncomplicated; Z88.5 Allergy status to narcotic agent; Z88.8 Allergy status to other drugs, medicaments and biological substances; Z86.14 Personal history of Methicillin resistant Staphylococcus aureus infection; Z79.891 Long term (current) use of opiate analgesic; Z79.899 Other long term (current) drug therapy

== ENCOUNTER → 2019-07-18 | Outpatient (CLI) | payer OTHER ==
[~2019-07-18] MED LIST changes: -OMEP40CA2 PO; +OMEP40CA97 PO
[2019-07-18 11:58] LABS: ALBUMIN 3.6 GM/DL (3.2-5.2); ALT/SGPT 29 U/L (12-78); BILIRUBIN,TOTAL 0.4 MG/DL (0.2-1.0); BLOOD UREA NITROGEN 10 MG/DL (7-18); CALCIUM LEVEL 9.2 MG/DL (8.5-10.1); CARBON DIOXIDE LEVEL 28 MEQ/L (21-32); CHLORIDE LEVEL 108 MEQ/L (98-107); CHOLESTEROL LEVEL 222 MG/DL (<200); CHOLESTEROL RISK RATIO 3.313 (<5); GLOMERULAR FILTRATION RATE > 60.0 (>60); GLUCOSE, FASTING 93 MG/DL (70-100); HDL CHOLESTEROL 67 MG/DL (>40); LDL CHOLESTEROL 140 MG/DL (<100); NON-HDL-C 155 MG/DL; POTASSIUM SERUM 3.9 MEQ/L (3.5-5.1); SODIUM LEVEL 142 MEQ/L (136-145); TOTAL PROTEIN 7.6 GM/DL (6.4-8.2); TRIGLYCERIDES LEVEL 76 MG/DL (<150)
[2019-07-19 10:53] LABS: TOTAL 25(OH) VITAMIN D 33.9 NG/ML (30.0-100.0); VITAMIN B12 LEVEL 358 PG/ML
[2019-07-19 10:54] LABS: FOLATE 10.6 NG/ML
== END ==
LOC: M LAB 10:53
PROVIDERS: ATTEND Physician Assistant
DX: I10 Essential (primary) hypertension (principal); E78.49 Other hyperlipidemia; Z91.89 Other specified personal risk factors, not elsewhere classified; K21.9 Gastro-esophageal reflux disease without esophagitis

== ENCOUNTER → 2019-08-02 | Outpatient (CLI) | payer OTHER ==
--- NOTE | 2019-08-04 00:48 | ECWPNPC ---
PATIENT NAME: ADELA ALMONTE : 1980 GENDER: FEMALE VISIT DATE: 08/02/2019 DISCHARGE DATE: 08/02/19 1344 VISIT LOCKED DATE TIME: PHYSICIAN: RAVEN CORDON RESOURCE: RAVEN CORDON REASON FOR APPOINTMENT 1. MIGRAINES HISTORY OF PRESENT ILLNESS HISTORY OF PRESENT ILLNESS: PAIN THE PATIENT DESCRIBES THE PAIN... 39-YEAR-OLD FEMALE IN FOR CHRONIC MIGRAINE FOLLOW-UP. SHE WAS STARTED ON TOPAMAX RECENTLY AND FEELS THIS MEDICATION HAS BEEN HELPFUL IN REDUCING HER MIGRAINES HOWEVER SHE HAS EXPERIENCED SOME SIDE EFFECTS PEOPLE SHE KNOWS STATES THAT SHE SEEMS TO BE IN A FOG. PATIENT IS ON THE LIST TO RECEIVE BOTOX INJECTIONS IN FOR HER MIGRAINES HOWEVER THIS WON'T HAPPEN UNTIL SEPTEMBER. SHE RATES HER PAIN CURRENTLY AT A 9 OUT OF 10 AND DESCRIBES IT SORE, TENDER, SHARP, STABBING, SHOOTING, AND MAKING. SHE FURTHER STATES IT IS CONTINUOUS AND LASTS ALL DAY. FALL RISK SCREENING: SCREENING :NO FALLS REPORTED IN THE LAST YEAR CURRENT MEDICATIONS TAKING CUVITRU 4 GM/20ML SOLUTION 14 GRAMS SUBCUTANEOUS WEEKLY TAKING BUSPIRONE HCL 30 MG TABLET 1 TABLET ORALLY TWICE A DAY TAKING VYVANSE 70 MG CAPSULE 1 CAPSULE IN THE MORNING ORALLY ONCE A DAY TAKING VRAYLAR 3 MG CAPSULE 1 CAPSULE ORALLY ONCE A DAY TAKING KETOCONAZOLE 2 % CREAM 1 APPLICATION TO AFFECTED AREA EXTERNALLY ONCE A DAY TO BOTH FEET, NOTES: > 1 WEEK TAKING AMMONIUM LACTATE 10 % LOTION 1 APPLICATION TO AFFECTED AREA EXTERNALLY TWICE A DAY TAKING ESTRADIOL 0.025 MG/24HR PATCH TWICE WEEKLY 1 PATCH TO SKIN TRANSDERMAL TWO TIMES A WEEK TAKING MOVANTIK 25 MG TABLET 1 TABLET IN THE MORNING ORALLY ONCE A DAY TAKING IMITREX 4 MG/0.5ML SOLUTION 1 INJECTION NEEDED AT THE ONSET OF A MIGRAINE SUBCUTANEOUS REPEAT TIMES ONE IF NOT EFFECTIVE (DR JC) TAKING PROTONIX 40 MG TABLET DELAYED RELEASE 1 TABLET ORALLY BID TAKING NIFEDIPINE 20 MG CAPSULE 1 CAPSULE ORALLY DAILY TAKING FERROUS SULFATE 325 (65 FE) MG TABLET 1 TABLET ORALLY EVERY OTHER DAY TAKING FLUTICASONE PROPIONATE 50 MCG/ACT SUSPENSION 1 SPRAY IN EACH NOSTRIL NASALLY ONCE A DAY TAKING IBUPROFEN 800 MG TABLET 1 TABLET WITH FOOD OR MILK NEEDED ORALLY THREE TIMES A DAY NEEDED FOR SEVERE HEADACHES TAKING VENTOLIN HFA 108 (90 BASE) MCG/ACT AEROSOL SOLUTION 2 PUFFS NEEDED INHALATION EVERY 4 HRS PRN TAKING ALBUTEROL SULFATE (2.5 MG/3ML) 0.083% NEBULIZATION SOLUTION 1 VIAL INHALATION EVERY 6 HRS PRN TAKING LOSARTAN POTASSIUM 25 MG TABLET 1 TABLET ORALLY ONCE A DAY TAKING PHENERGAN 25 MG TABLET 1 TABLET ORALLY EVERY 6 HRS PRN NAUSEA TAKING LORAZEPAM 1 MG 1 TAB ORAL FOUR TIMES DAILY TAKING LYRICA 200 MG CAPSULE 1 CAPSULE ORALLY THREE TIMES A DAY MDD3 TAKING TOPAMAX 50 MG TABLET 1 TABLET ORALLY TWICE MATTA TAKING BELBUCA 150 MCG FILM 1 FILM TO THE GUM BUCALLY EVERY 12 HRS TAKING LASIX 20 MG TABLET 1 TABLET ORALLY ONCE A DAY TAKING ACETAMINOPHEN 500 MG CAPSULE 1 CAPSULES NEEDED ORALLY EVERY 6 HRS PRN TAKING ZYRTEC 10 MG TABLET 1 TABLET NEEDED ORALLY ONCE A DAY TAKING MINIPRESS 1 MG CAPSULE 1 CAPSULE AT BEDTIME ORALLY ONCE A DAY TAKING CHANTIX 1 MG TABLET 1 TABLET ORALLY TWICE A DAY NOT-TAKING NARATRIPTAN HCL 2.5 MG TABLET 1 TABLET NEEDED ONE TIME AT ONSET OF MIGRAINE ORALLY MAY REPEAT IN 2 HRS ONCE A DAY MDD2 NOT-TAKING POTASSIUM CHLORIDE ER 20 MEQ TABLET EXTENDED RELEASE 1 TABLET WITH FOOD ORALLY ONCE A DAY NOT-TAKING TIZANIDINE HCL 4 MG TABLET 1 TABLET NEEDED ORALLY FOR SPASMS AND PAIN Q8H PRN MDD3 NOT-TAKING CLARITIN 10 MG TABLET 1 TABLET ORALLY ONCE A DAY MEDICATION LIST REVIEWED AND RECONCILED WITH THE PATIENT PAST MEDICAL HISTORY SURGICAL MENOPAUSE S/P ELIA & BSO 2009 CHRONIC NECK/MID/LOW BACK PAIN PEPTIC ULCER DISEASE, S/P GASTRIC BYPASS - ON PROTONIX AND CARAFATE BY DR. MILLER BIPOLAR, ANXIETY, DEPRESSION - FOLLWS WITH DR. OTERO ALCOHOLISM MIGRAINE HEADACHES TOBACCO USE ADD CHRONIC RHINITIS/SINUSITIS RAYNAUD'S SYNDROME COMMON VARIABLE IMMUNO DEFICIENCY DISEASE ASTHMA HEART MURMUR - ECHO 10/2017 BORDERLINE LVH, MILD LAE, SUBTLE AV SCLEROSIS, AORTIC SCLEROSIS, MILD AR, MILD MR SLEEP APNEA WITH BIPAP S/P GASTRIC BYPASS FAINTING SPELLS ALLERGIES MORPHINE: , DIFF. BREATHING - ALLERGY LATEX: HIVES - ALLERGY DILAUDID: HIVES, DIFF. BREATHING - ALLERGY REGLAN: HIVES - ALLERGY LAMICTAL: HIVES - ALLERGY DEPAKOTE: CONFUSION - CONTRAINDICATION RISPERDAL: SUICIDAL IDEATION - ALLERGY KETOROLAC TROMETHAMINE: ANAPHYLAXIS - ALLERGY MUSCLE RELAXERS: ALTERED MENTAL STATUS - SIDE EFFECTS GASTROGRAFIN: HIVES - ALLERGY SURGICAL HISTORY LUMBAR LAMINECTOMY [place] 02/11 BACK SURGERY 1997 LAPAROTOMY X 4...CARTHAGE....DR. CRISTOBAL CHOLECYSTECTOMY 07/13 ELIA W/ AGUDELO, APPENDECTOMY - FOR ENDOMETRIOSIS 12/13 GASTRIC BYPASS (DR. CARTAGENA, [facility]) 01/2012 LAPAROSCOPY AND REMOVAL OF ADHESIONS (DR. BARRERA) 12/2012 CHEST TUBE ENDOSCOPY/COLONOSCOPY BLOOD TRANSFUSION BLADDER REPAIR 10/2016 LAPROSCOPC SURGERY FOR ENDOMETRIOSIS / LYSIS OF ADHESIONS AND SCAR TISSUE (BOWEL NICKED IN OR). 12/19/17 EGD - ESOPHAGEAL PLAQUE - BIOPSY RESULTS NOT SENT TO US (DR. MILLER) 05/2018 REMOVAL CYSTS IN BILATERAL EARS REMOVAL OF NEEDLE FROM RIGHT FOOT FAMILY HISTORY FATHER: ALIVE, DIAGNOSED WITH UNSPECIFIED CEREBRAL ARTERY OCCLUSION WITH CEREBRAL INFARCTION, OTHER MALIGNANT NEOPLASM OF UNSPECIFIED SITE MOTHER: ALIVE, DIABETES, HYPERTENSION, UNSPECIFIED HEART DISEASE FATHER SKIN CANCER\\\\\\\\NSISTER WITH HOSHIMOTO\\\\\\\\\\\\\\'S. SOCIAL HISTORY GENERAL: TOBACCO USE ARE YOU A:CURRENT SMOKER ARE YOU INTERESTED IN QUITTING?NOT READY TO QUIT NO LONGER TAKING CHANTIX COUNSELED THE PATIENT ON SMOKING EFFECTS, EDUCATION KSOOLTTP73/28/2019 HOW MANY CIGARETTES A DAY DO YOU SMOKE?11-20 HOW SOON AFTER YOU WAKE UP DO YOU SMOKE YOUR FIRST CIGARETTE?AFTER 60 MIN HOW OFTEN DO YOU SMOKE CIGARETTES?EVERY DAY PATIENT COUNSELED ON THE DANGERS OF TOBACCO USE AND URGED TO QUIT:05/25/2019 HIV / HEP-C SCREENING HIV TEST OFFERED TO PATIENT:YES DATE OFFERED:03/13/2017 TEST ACCEPTED:NO HEP-C TEST OFFERED TO PATIENT:NO REASON:PATIENT DECLINED EDUCATION LEVEL OF EDUCATION:NOT FINISHED COLLEGE DIET: REGULAR. LANGUAGE LANGUAGES SPOKEN:GERMAN DOMESTIC VIOLENCE DO YOU FEEL SAFE IN YOUR ENVIRONMENT?YES BMI CARE GOAL FOLLOW-UP ABOVE NORMAL BMI FOLLOW-UPDIETARY MANAGEMENT EDUCATION, GUIDANCE, AND COUNSELING, DIETARY NEEDS EDUCATION, EXERCISE PROMOTION: STRENGTH TRAINING RECREATIONAL DRUG USE DRUG USE?NO EXERCISE: NO REGULAR EXERCISE. LEARNING BARRIERS / SPECIAL NEEDS CHANGE FROM LAST VISIT?NO BARRIERS TO LEARNING?NO HEARING IMPAIRED?NO VISION IMPAIRED?NO COGNITIVELY IMPAIRED?NO READINESS TO LEARN?YES LEARNING PREFERENCES?NO LEARNING CAPABILITIES PRESENT?YES EMOTIONAL BARRIERS?NO SPECIAL DEVICES?NO SPACE STUDIES FACULTY MEMBER NEEDED?NO LUNG CANCER SCREENING SMOKING STATUS:CURRENT SMOKER PAIN CLINIC PFS, CLERGY, PUBLIC HEALTH REFERRALS PFS REFERRAL NEEDED?NO CLERGY REFERRAL NEEDED?NO PUBLIC HEALTH REFERRAL NEEDED?NO WAS THE PROVIDER NOTIFIED OF ANY PERTINENT INFO? N/A HAS THE PATIENT BEEN EDUCATED REGARDING HIS/HER PLAN OF CARE?YES HAS THE PATIENT BEEN EDUCATED REGARDING PAIN, THE RISK FOR PAIN, THE IMPORTANCE OF EFFECTIVE PAIN MANAGEMENT, AND THE PAIN ASSESSMENT PROCESS?YES LATEX QUESTIONNAIRE LATEX ALLERGY : HAVE YOU EVER DEVELOPED ANY TYPE OF REACTION AFTER HANDLING LATEX PRODUCTS SUCH RUBBER GLOVES, CONDOMS, DIAPHRAGMS, BALLOONS, SOCKS, OR UNDERWEAR?YES LATEX ALLERGY : HAVE YOU EVER DEVELOPED ANY TYPE OF REACTION DURING OR AFTER DENTAL APPOINTMENT, VAGINAL/RECTAL EXAMINATION, SURGICAL PROCEDURE, OR ANY OTHER EXPOSURE?YES - PLEASE INDICATE :RUBBER GLOVES, CONDOMS, UNDERWEAR, OTHER (DOCUMENT IN NOTES) BRAS - PLEASE INDICATE :VAGINAL EXAM DATE ASKED : 05/07/2019 LATEX RISK : HAVE YOU EVER HAD ANY DIFFICULTY BREATHING OR HIVES AFTER EATING OR HANDLING ANY FRUITS, OR VEGETABLES; SUCH KIWI, BANANAS, STONE FRUITS, OR CHESTNUTSNO LATEX RISK : DO YOU HAVE A PREVIOUS PERSONAL HISTORY OF MORE THAN NINE SURGERIES, SPINA BIFIDA, OR REPEATED CATHERIZATIONS? YES - PLEASE INDICATE : > 9 SURGERIES LATEX RISK : ARE YOU FREQUENTLY EXPOSED TO LATEX PRODUCTS IN YOUR OCCUPATION?NO CAFFEINE CAFFEINE USE?YES 2-3 CUPS COFFEE & ICED TEA THROUGH THE DAY. ADVANCE DIRECTIVE ADVANCE DIRECTIVE DISCUSSED WITH PATIENT:YES PT. DOES NOT HAVE ANY ADVANCED DIREDCTIVES AND SHE DECLINES INFORMATION ON HCP AT THIS TIME RELIGIOUS [id number] FAITH MARITAL STATUS: SINGLE. ALCOHOL SCREENING DID YOU HAVE A DRINK CONTAINING ALCOHOL IN THE PAST YEAR?NO POINTS0 INTERPRETATIONNEGATIVE OCCUPATION: UNEMPLOYED. SEXUAL HX HAD SEX IN THE LAST 12 MONTHS (VAGINAL, ORAL, OR ANAL)?NO LMP:2009 HAVE YOU EVER HAD AN STD?NO REVIEWED WITH PT 06/23/18 1154 BVREVIEWED WITH PATIENT 07/07/18 1158 JS11/05/18 REVIEWED WITH PT. AD12/07/18 REVIEWED WITH PT. AD04/16/19 REVIEWED WITH PT 1204 LASREVIEWED WITH PATIENT 05/25/19 1055 NLJREVIEWED WITH PATIENT 05/25/19 NLJREVIEWED WITH PT 05/03/19 0945 BV. HOSPITALIZATION/MAJOR DIAGNOSTIC PROCEDURE SURGERY RELATED [facility] ([facility]) 05/2012 ADMITTED TO [facility] 12/[address] [facility] 10/2015 [facility] DAY HOSPITAL STAY DUE TO NICKED BOWEL 12/19/2017 PNEUMONIA 07/2018 REVIEW OF SYSTEMS REVIEWED BY: PROVIDER: ENRIQUETA CALL-Jose Elias . CONSTITUTIONAL: ANY CHANGE IN YOUR MEDICAL CONDITION? NO . CHILLS NO . FEVER NO . INFECTION: DO YOU HAVE NEW INFECTIONS? NO . DO YOU HAVE HISTORY OF MRSA? YES . MUSCULOSKELETAL: ANY NEW PATTERNS OF PAIN OR NUMBNESS? YES, RIGHT LEG PAIN . GASTROENTEROLOGY: ANY NEW CHANGE IN BOWEL CONTROL? NO . GENITOURINARY: ANY NEW CHANGE IN BLADDER CONTROL? NO . IS THERE A CHANCE YOU COULD BE ? NO . HEMATOLOGY/LYMPH: DO YOU TAKE ANY BLOOD THINNERS? (FOR EXAMPLE- COUMADIN, PLAVIX, AGGRENOX, PLATEL, PRADAXA, OR XARELTO) NO . WHEN WAS YOUR LAST DOSE? DATE: TIME: . NEUROLOGY: HAVE YOU FALLEN IN THE PAST 12 MONTHS? NO . ANY NEW EXTREMITY NUMBNESS OR WEAKNESS? YES, RIGHT LEG PAIN AND NUMBNESS . CARDIOLOGY: DO YOU HAVE A PACEMAKER OR DEFIBRILLATOR? NO . RESPIRATORY: HAVE YOU BEEN SICK IN THE PAST WEEK? YES . FEVER NO . FLU LIKE SYMPTOMS? NO . COUGH NO . INTEGUMENTARY: DO YOU HAVE ANY RASHES OR OPEN SORES? NO . ALLERGIC/IMMUNO: ARE YOU ALLERGIC TO IV DYE? NO . ANY NEW ALLERGIES? NO . PSYCHIATRIC: DO YOU HAVE THOUGHTS OF HURTING YOURSELF OR SOMEONE ELSE? NO . ARE YOU ABUSED, NEGLECTED, OR IN AN UNSAFE ENVIRONMENT? NO . ENDOCRINOLOGY: ARE YOU DIABETIC? NO . OTHER: DO YOU NEED ANY PRESCRIPTIONS? YES, BELBUCA, LYRICA, IMITREX . IF YES, PLEASE LIST: ____ . ANY NEW PROBLEMS WITH YOUR MEDICATIONS? NO . WHEN DID YOU LAST EAT? ____ . WHEN DID YOU LAST DRINK? ____ . WHAT DID YOU LAST DRINK? ____ . NAME OF PERSON DRIVING YOU HOME? ____ . DO YOU HAVE ANY OTHER QUESTIONS OR CONCERNS TOPOMAX- I ACT DINGY, SLUR MY WORDS, I'M READY TO LOSE ITLITERALLY. ARIES HAD A MIGRAINE FOR 4 WEEKS, IM BARELY HOLDING IT TOGETHER. I WAS APPROVED FOR BOTOX BUT PROCEDURE IS IN SEPTEMBER SO I HAVE TO SUFFER UNTIL THEN . VITAL SIGNS WT 194 LBS, HT 67", BMI 30.38 INDEX, BP 137/88 MM HG, HR 86 /MIN, RR 18 /MIN, TEMP 98.0 F, OXYGEN SAT % 100%, NA INITIALS SC 13:15, REVIEWED BY: EM. EXAMINATION GENERAL EXAMINATION: GENERALNO ACUTE DISTRESS, WELL NOURISHED AND HYDRATED. PSYCHAPPROPRIATE MOOD AND AFFECT . LUNGS:CLEAR TO AUSCULTATION BILATERALLY, NO WHEEZES, RHONCHI, RALES. HEART:NO MURMURS, REGULAR RATE AND RHYTHM. ASSESSMENTS CHRONIC MIGRAINE WITHOUT AURA, NOT INTRACTABLE, WITHOUT STATUS MIGRAINOSUS - G43.709 (PRIMARY) TREATMENT CHRONIC MIGRAINE WITHOUT AURA, NOT INTRACTABLE, WITHOUT STATUS MIGRAINOSUS REFILL LYRICA CAPSULE, 200 MG, 1 CAPSULE, ORALLY, THREE TIMES A DAY MDD3, 30 DAYS, 90 REFILL TOPAMAX TABLET, 50 MG, 1 TABLET, ORALLY, TWICE MATTA, 30 DAYS, 60 CLINICAL NOTES: 39-YEAR-OLD FEMALE IN FOR CHRONIC MIGRAINE FOLLOW-UP. GIVEN PRESENTING SYMPTOMS AND RESULTS OF PHYSICAL EXAMINATION RECOMMEND KEEPING TOPAMAX AT THE SAME DOSE AND STARTING IBUPROFEN 800MG TID FOR THE NEXT 3 DAYS THEN GOING TO NEEDED. PATIENT ENCOURAGED TO TAKE THIS WITH FOOD. PATIENT HAS EXPRESSED UNDERSTANDING OF AND WAS IN AGREEMENT WITH TREATMENT PLAN. GIVEN TIME TO ASK QUESTIONS AND EXPRESS CONCERNS., ISTOP REGISTRY REVIEWED AND DEMONSTRATES COMPLLIANCE. (REF # [id number] ) BRINGS IN MEDICATIONS WHICH IS APPROPRIATE FOR WHAT WAS DISPENSED. RECENT URINE TOXICOLOGY REVIEWED. NO UNAUTHORIZED MEDICATIONS. NO ILLICIT SUBSTANCES AND PRESCRIBED MEDICATIONS WERE PRESENT. PROCEDURE CODES [id number] ESTABILISHED PATIENT [facility] CHARGE DISPOSITION & COMMUNICATION FOLLOW UP 4 WEEKS (REASON: MIGRAINES ) ELECTRONICALLY SIGNED BY JAKUB VILLEDA ON 08/03/2019 AT 08:48 AM EDT DISCLAIMER : THIS IS A VISIT SUMMARY EXTRACTED FROM THE [employer] CHART. IT IS NOT A COPY OF THE [employer] PROGRESS NOTE. MTDD
== END ==
LOC: M PAIN 13:00
PROVIDERS: ATTEND Family Medicine
DX: G43.709 Chronic migraine without aura, not intractable, without status migrainosus (principal); M54.2 Cervicalgia; M54.5 Low back pain; K28.9 Gastrojejunal ulcer, unspecified as acute or chronic, without hemorrhage or perforation; Z98.84 Bariatric surgery status; F31.9 Bipolar disorder, unspecified; F41.9 Anxiety disorder, unspecified; F10.20 Alcohol dependence, uncomplicated; F17.210 Nicotine dependence, cigarettes, uncomplicated; I73.00 Raynaud's syndrome without gangrene; J45.909 Unspecified asthma, uncomplicated; G47.30 Sleep apnea, unspecified; D83.9 Common variable immunodeficiency, unspecified; Z79.899 Other long term (current) drug therapy; Z88.5 Allergy status to narcotic agent; Z88.8 Allergy status to other drugs, medicaments and biological substances; Z91.040 Latex allergy status

== ENCOUNTER → 2019-08-04 | Outpatient (REF) | payer OTHER ==
[2019-08-04 17:01] LABS: HEMATOCRIT 39.9 % (36.0-47.0); HEMOGLOBIN 12.7 g/dl (12.0-15.5); MEAN CORPUSCULAR HEMOGLOBIN 29.5 pg (27.0-33.0); MEAN CORPUSCULAR HGB CONC 31.8 g/dl (32.0-36.5); MEAN CORPUSCULAR VOLUME 92.8 fl (80.0-96.0); PLATELET COUNT, AUTOMATED 198 10^3/uL (150-450); WHITE BLOOD COUNT 7.1 10^3/uL (4.0-10.0)
[2019-08-04 17:30] LABS: ALBUMIN 3.5 GM/DL (3.2-5.2); ALT/SGPT 25 U/L (12-78); BILIRUBIN,TOTAL 0.5 MG/DL (0.2-1.0); BLOOD UREA NITROGEN 15 MG/DL (7-18); CALCIUM LEVEL 8.8 MG/DL (8.5-10.1); CARBON DIOXIDE LEVEL 26 MEQ/L (21-32); CHLORIDE LEVEL 107 MEQ/L (98-107); CREATININE FOR GFR 0.94 MG/DL (0.55-1.30); GLOMERULAR FILTRATION RATE > 60.0 (>60); GLUCOSE, FASTING 78 MG/DL (70-100); POTASSIUM SERUM 4.6 MEQ/L (3.5-5.1); SODIUM LEVEL 139 MEQ/L (136-145)
[2019-08-04 17:31] LABS: TOTAL 25(OH) VITAMIN D 34.1 NG/ML (30.0-100.0)
[2019-08-04 17:32] LABS: FOLATE 8.6 NG/ML; VITAMIN B12 LEVEL 285 PG/ML
== END ==
LOC: M SFHCADAM 14:33
PROVIDERS: ATTEND Physician Assistant
DX: M51.17 Intervertebral disc disorders with radiculopathy, lumbosacral region (principal); G89.4 Chronic pain syndrome; G43.709 Chronic migraine without aura, not intractable, without status migrainosus; I10 Essential (primary) hypertension

== ENCOUNTER → 2019-08-18 | Outpatient (CLI) | payer OTHER ==
[2019-08-18 17:15] LABS: BASO # 0.1 10^3/uL (0.0-0.2); BASO % 0.8 % (0.0-1.0); EOS # 0.1 10^3/uL (0.0-0.5); EOS % 0.8 % (0.0-3.0); HEMATOCRIT 42.1 % (36.0-47.0); HEMOGLOBIN 13.6 g/dl (12.0-15.5); LYMPH # 2.6 10^3/uL (1.5-5.0); LYMPH % 39.1 % (24.0-44.0); MEAN CORPUSCULAR HEMOGLOBIN 29.8 pg (27.0-33.0); MEAN CORPUSCULAR HGB CONC 32.3 g/dl (32.0-36.5); MEAN CORPUSCULAR VOLUME 92.3 fl (80.0-96.0); MONO # 0.3 10^3/uL (0.0-0.8); MONO % 5.1 % (0.0-5.0); NEUTROPHILS # 3.6 10^3/uL (1.5-8.5); NEUTROPHILS % 53.9 % (36.0-66.0); PLATELET COUNT, AUTOMATED 176 10^3/uL (150-450); RED BLOOD COUNT 4.56 10^6/uL (4.00-5.40); WHITE BLOOD COUNT 6.6 10^3/uL (4.0-10.0)
[2019-08-18 17:38] LABS: ALBUMIN 3.6 GM/DL (3.2-5.2); ALT/SGPT 39 U/L (12-78); BILIRUBIN,TOTAL 0.3 MG/DL (0.2-1.0); BLOOD UREA NITROGEN 12 MG/DL (7-18); CALCIUM LEVEL 9.4 MG/DL (8.5-10.1); CARBON DIOXIDE LEVEL 29 MEQ/L (21-32); CHLORIDE LEVEL 104 MEQ/L (98-107); CREATININE FOR GFR 0.88 MG/DL (0.55-1.30); GLOMERULAR FILTRATION RATE > 60.0 (>60); GLUCOSE, FASTING 95 MG/DL (70-100); IMMUNOGLOBULIN G 1280 MG/DL (681-1648); SODIUM LEVEL 140 MEQ/L (136-145); TOTAL PROTEIN 7.5 GM/DL (6.4-8.2)
== END ==
LOC: M LAB 16:44
PROVIDERS: ATTEND Nurse Practitioner Family
DX: D83.9 Common variable immunodeficiency, unspecified (principal)

== ENCOUNTER → 2019-09-23 | Outpatient (CLI) | payer OTHER ==
[2019-09-23 15:11] LABS: HEMATOCRIT 42.1 % (36.0-47.0); MEAN CORPUSCULAR HEMOGLOBIN 28.9 pg (27.0-33.0); MEAN CORPUSCULAR HGB CONC 30.9 g/dl (32.0-36.5); MEAN CORPUSCULAR VOLUME 93.6 fl (80.0-96.0); PLATELET COUNT, AUTOMATED 180 10^3/uL (150-450); WHITE BLOOD COUNT 5.4 10^3/uL (4.0-10.0)
[2019-09-23 15:42] LABS: ALBUMIN 3.7 GM/DL (3.2-5.2); ALT/SGPT 25 U/L (12-78); BILIRUBIN,TOTAL 0.4 MG/DL (0.2-1.0); BLOOD UREA NITROGEN 10 MG/DL (7-18); CALCIUM LEVEL 9.1 MG/DL (8.5-10.1); CARBON DIOXIDE LEVEL 26 MEQ/L (21-32); CHLORIDE LEVEL 107 MEQ/L (98-107); CREATININE FOR GFR 0.97 MG/DL (0.55-1.30); ETHYL ALCOHOL (ETHANOL) 0.004 % (0.000-0.010); GLOMERULAR FILTRATION RATE > 60.0 (>60); GLUCOSE, FASTING 137 MG/DL (70-100); POTASSIUM SERUM 4.1 MEQ/L (3.5-5.1); SODIUM LEVEL 138 MEQ/L (136-145); TOTAL PROTEIN 7.3 GM/DL (6.4-8.2)
[2019-09-23 15:45] LABS: ANISOCYTOSIS 1+; ATYPICAL LYMPH 2 % (0-5); BASOPHILS 1 % (0-1); EOSINOPHILS 1 % (0-3); LYMPHOCYTES 41 % (16-44); MONOCYTES 2 % (0-5); NEUTROPHILS 53 % (28-66); PLATELET ESTIMATE NORMAL (NORMAL)
[2019-09-23 15:52] LABS: TOTAL 25(OH) VITAMIN D 31.7 NG/ML (30.0-100.0); VITAMIN B12 LEVEL 774 PG/ML (247-911)
== END ==
LOC: M LAB 14:35
PROVIDERS: ATTEND Family Medicine
DX: F10.10 Alcohol abuse, uncomplicated (principal)
CPT/HCPCS: 36415; 80053; 80307; 82306; 82607; 85025; G0480

== ENCOUNTER → 2019-09-23 | Outpatient (CLI) | payer OTHER ==
[~2019-09-23] MED LIST changes: +BOTULINUM INJ 100 UNITS (J0585) IM ONE; +diazePAM 5 MG TAB As Ordered ONE; +oxyCODONE 5MG TAB As Ordered ONE
--- NOTE | 2019-10-03 23:57 | ECWPNPC ---
PATIENT NAME: ADELA ALMONTE : 1980 GENDER: FEMALE VISIT DATE: 09/23/2019 DISCHARGE DATE: 09/23/19 1420 VISIT LOCKED DATE TIME: PHYSICIAN: HARRISON ZEPEDA MD RESOURCE: HARRISON ZEPEDA MD REASON FOR APPOINTMENT 1. BOTOX HISTORY OF PRESENT ILLNESS HISTORY OF PRESENT ILLNESS: PAIN THE PATIENT DESCRIBES THE PAIN... FALL RISK SCREENING: SCREENING :NO FALLS REPORTED IN THE LAST YEAR CURRENT MEDICATIONS TAKING CUVITRU 4 GM/20ML SOLUTION 14 GRAMS SUBCUTANEOUS WEEKLY, NOTES: 09/18/19 TAKING BUSPIRONE HCL 30 MG TABLET 1 TABLET ORALLY TWICE A DAY, NOTES: 09/23/19699 TAKING VYVANSE 70 MG CAPSULE 1 CAPSULE IN THE MORNING ORALLY ONCE A DAY, NOTES: 09/23/19699 TAKING VRAYLAR 3 MG CAPSULE 1 CAPSULE ORALLY ONCE A DAY, NOTES: 09/22/191899 TAKING AMMONIUM LACTATE 10 % LOTION 1 APPLICATION TO AFFECTED AREA EXTERNALLY TWICE A DAY, NOTES: HAS NOT USED IN A WHILE TAKING ESTRADIOL 0.025 MG/24HR PATCH TWICE WEEKLY 1 PATCH TO SKIN TRANSDERMAL WEEKLY, NOTES: 09/18/19 APPLIED TAKING MOVANTIK 25 MG TABLET 1 TABLET IN THE MORNING ORALLY ONCE A DAY, NOTES: 09/23/19699 TAKING IMITREX 4 MG/0.5ML SOLUTION 1 INJECTION NEEDED AT THE ONSET OF A MIGRAINE SUBCUTANEOUS REPEAT TIMES ONE IF NOT EFFECTIVE (DR JC), NOTES: 2 DAYS AGO TAKING PROTONIX 40 MG TABLET DELAYED RELEASE 1 TABLET ORALLY DAILY, NOTES: 09/23/19 TAKING NIFEDIPINE 20 MG CAPSULE 1 CAPSULE ORALLY DAILY, NOTES: 09/23/19699 TAKING FLUTICASONE PROPIONATE 50 MCG/ACT SUSPENSION 1 SPRAY IN EACH NOSTRIL NASALLY ONCE A DAY, NOTES: 09/23/19699 TAKING IBUPROFEN 800 MG TABLET 1 TABLET WITH FOOD OR MILK NEEDED ORALLY THREE TIMES A DAY NEEDED FOR SEVERE HEADACHES, NOTES: 09/23/19699 TAKING VENTOLIN HFA 108 (90 BASE) MCG/ACT AEROSOL SOLUTION 2 PUFFS NEEDED INHALATION EVERY 4 HRS PRN, NOTES: 09/22/19 TAKING ALBUTEROL SULFATE (2.5 MG/3ML) 0.083% NEBULIZATION SOLUTION 1 VIAL INHALATION EVERY 6 HRS PRN, NOTES: NONE IN A WHILE TAKING LOSARTAN POTASSIUM 25 MG TABLET 1 TABLET ORALLY ONCE A DAY, NOTES: 09/23/19699 TAKING PHENERGAN 25 MG TABLET 1 TABLET ORALLY EVERY 6 HRS PRN NAUSEA, NOTES: 09/23/19699 TAKING LASIX 20 MG TABLET 1 TABLET ORALLY ONCE A DAY, NOTES: 09/23/19699 TAKING ACETAMINOPHEN 500 MG CAPSULE 1 CAPSULES NEEDED ORALLY EVERY 6 HRS PRN, NOTES: 09/23/19699 TAKING ZYRTEC 10 MG TABLET 1 TABLET NEEDED ORALLY ONCE A DAY, NOTES: 09/23/19699 TAKING MINIPRESS 1 MG CAPSULE 1 CAPSULE AT BEDTIME ORALLY ONCE A DAY, NOTES: 09/22/191899 TAKING CHANTIX 1 MG TABLET 1 TABLET ORALLY TWICE A DAY, NOTES: 09/23/19699 TAKING KETOCONAZOLE 2 % CREAM 1 APPLICATION TO AFFECTED AREA EXTERNALLY ONCE A DAY TO BOTH FEET, NOTES: NONE LATELT TAKING LYRICA 200 MG CAPSULE 1 CAPSULE ORALLY THREE TIMES A DAY MDD3, NOTES: 09/23/19699 TAKING BELBUCA 150 MCG FILM 1 FILM TO THE GUM BUCALLY EVERY 12 HRS, NOTES: 09/23/19 TAKING TOPAMAX 50 MG TABLET 1 TABLET ORALLY BID, NOTES: 09/23/19699 TAKING BENTYL 20 MG TABLET DIRECTED ORALLY TID, NOTES: 09/23/19699 TAKING PEPCID 20 MG TABLET 1 TABLET AT BEDTIME NEEDED ORALLY ONCE A DAY, NOTES: 09/22/191899 NOT-TAKING FERROUS SULFATE 325 (65 FE) MG TABLET 1 TABLET ORALLY EVERY OTHER DAY NOT-TAKING LORAZEPAM 1 MG 1 TAB ORAL FOUR TIMES DAILY NOT-TAKING NARATRIPTAN HCL 2.5 MG TABLET 1 TABLET NEEDED ONE TIME AT ONSET OF MIGRAINE ORALLY MAY REPEAT IN 2 HRS ONCE A DAY MDD2 NOT-TAKING POTASSIUM CHLORIDE ER 20 MEQ TABLET EXTENDED RELEASE 1 TABLET WITH FOOD ORALLY ONCE A DAY NOT-TAKING TIZANIDINE HCL 4 MG TABLET 1 TABLET NEEDED ORALLY FOR SPASMS AND PAIN Q8H PRN MDD3 NOT-TAKING CLARITIN 10 MG TABLET 1 TABLET ORALLY ONCE A DAY MEDICATION LIST REVIEWED AND RECONCILED WITH THE PATIENT PAST MEDICAL HISTORY SURGICAL MENOPAUSE S/P ELIA & BSO 2009 CHRONIC NECK/MID/LOW BACK PAIN PEPTIC ULCER DISEASE, S/P GASTRIC BYPASS - ON PROTONIX AND CARAFATE BY DR. MILLER BIPOLAR, ANXIETY, DEPRESSION - FOLLWS WITH DR. OTERO ALCOHOLISM MIGRAINE HEADACHES TOBACCO USE ADD CHRONIC RHINITIS/SINUSITIS RAYNAUD'S SYNDROME COMMON VARIABLE IMMUNO DEFICIENCY DISEASE ASTHMA HEART MURMUR - ECHO 10/2017 BORDERLINE LVH, MILD LAE, SUBTLE AV SCLEROSIS, AORTIC SCLEROSIS, MILD AR, MILD MR SLEEP APNEA WITH BIPAP S/P GASTRIC BYPASS FAINTING SPELLS CHRONIC PNEUMONIA ALLERGIES MORPHINE: , DIFF. BREATHING - ALLERGY LATEX: HIVES - ALLERGY DILAUDID: HIVES, DIFF. BREATHING - ALLERGY REGLAN: HIVES - ALLERGY LAMICTAL: HIVES - ALLERGY DEPAKOTE: CONFUSION - CONTRAINDICATION RISPERDAL: SUICIDAL IDEATION - ALLERGY KETOROLAC TROMETHAMINE: ANAPHYLAXIS - ALLERGY MUSCLE RELAXERS: ALTERED MENTAL STATUS - SIDE EFFECTS GASTROGRAFIN: HIVES - ALLERGY SURGICAL HISTORY LUMBAR LAMINECTOMY [place] 02/11 BACK SURGERY 1997 LAPAROTOMY X 4...CARTHAGE....DR. CRISTOBAL CHOLECYSTECTOMY 07/13 HYSTERECTOMY, APPENDECTOMY - FOR ENDOMETRIOSIS 12/13 GASTRIC BYPASS (DR. CARTAGENA, [facility]) 01/2012 LAPAROSCOPY AND REMOVAL OF ADHESIONS (DR. BARRERA) 12/2012 CHEST TUBE ENDOSCOPY/COLONOSCOPY BLOOD TRANSFUSION BLADDER REPAIR 10/2016 LAPROSCOPC SURGERY FOR ENDOMETRIOSIS / LYSIS OF ADHESIONS AND SCAR TISSUE (BOWEL NICKED IN OR). 12/19/17 EGD - ESOPHAGEAL PLAQUE - BIOPSY RESULTS NOT SENT TO US (DR. MILLER) 05/2018 REMOVAL CYSTS IN BILATERAL EARS REMOVAL OF NEEDLE FROM RIGHT FOOT FAMILY HISTORY FATHER: ALIVE, DIAGNOSED WITH UNSPECIFIED CEREBRAL ARTERY OCCLUSION WITH CEREBRAL INFARCTION, OTHER MALIGNANT NEOPLASM OF UNSPECIFIED SITE MOTHER: ALIVE, DIABETES, HYPERTENSION, UNSPECIFIED HEART DISEASE FATHER SKIN CANCER\\\\\\\\NSISTER WITH HOSHIMOTO\\\\\\\\\\\\\\'S. SOCIAL HISTORY GENERAL: TOBACCO USE ARE YOU A:CURRENT SMOKER ARE YOU INTERESTED IN QUITTING?READY TO QUIT WAITING FOR PRESCRIPTION FOR CHANTIX. COUNSELED THE PATIENT ON TOBACCO USE, CESSATION [id number]/11/2019 HOW MANY CIGARETTES A DAY DO YOU SMOKE?11-20 HOW SOON AFTER YOU WAKE UP DO YOU SMOKE YOUR FIRST CIGARETTE?AFTER 60 MIN HOW OFTEN DO YOU SMOKE CIGARETTES?EVERY DAY PATIENT COUNSELED ON THE DANGERS OF TOBACCO USE AND URGED TO QUIT:09/15/2019 HIV / HEP-C SCREENING HIV TEST OFFERED TO PATIENT:YES DATE OFFERED:03/13/2017 TEST ACCEPTED:NO HEP-C TEST OFFERED TO PATIENT:NO REASON:PATIENT DECLINED EDUCATION LEVEL OF EDUCATION:NOT FINISHED COLLEGE DIET: REGULAR. LANGUAGE LANGUAGES SPOKEN:LIBYAN DOMESTIC VIOLENCE DO YOU FEEL SAFE IN YOUR ENVIRONMENT?YES BMI CARE GOAL FOLLOW-UP ABOVE NORMAL BMI FOLLOW-UPDIETARY MANAGEMENT EDUCATION, GUIDANCE, AND COUNSELING, DIETARY NEEDS EDUCATION, EXERCISE PROMOTION: STRENGTH TRAINING RECREATIONAL DRUG USE DRUG USE?NO EXERCISE: NO REGULAR EXERCISE. LEARNING BARRIERS / SPECIAL NEEDS CHANGE FROM LAST VISIT?NO BARRIERS TO LEARNING?NO HEARING IMPAIRED?YES VISION IMPAIRED?YES :CORRECTIVE LENSES COGNITIVELY IMPAIRED?NO READINESS TO LEARN?YES LEARNING PREFERENCES?NO LEARNING CAPABILITIES PRESENT?YES EMOTIONAL BARRIERS?NO SPECIAL DEVICES?NO INFORMATION TECHNOLOGY CONSULTANT NEEDED?NO LUNG CANCER SCREENING SMOKING STATUS:CURRENT SMOKER PAIN CLINIC PFS, CLERGY, PUBLIC HEALTH REFERRALS PFS REFERRAL NEEDED?NO CLERGY REFERRAL NEEDED?NO PUBLIC HEALTH REFERRAL NEEDED?NO WAS THE PROVIDER NOTIFIED OF ANY PERTINENT INFO? N/A HAS THE PATIENT BEEN EDUCATED REGARDING HIS/HER PLAN OF CARE?YES HAS THE PATIENT BEEN EDUCATED REGARDING PAIN, THE RISK FOR PAIN, THE IMPORTANCE OF EFFECTIVE PAIN MANAGEMENT, AND THE PAIN ASSESSMENT PROCESS?YES LATEX QUESTIONNAIRE LATEX ALLERGY : HAVE YOU EVER DEVELOPED ANY TYPE OF REACTION AFTER HANDLING LATEX PRODUCTS SUCH RUBBER GLOVES, CONDOMS, DIAPHRAGMS, BALLOONS, SOCKS, OR UNDERWEAR?YES - PLEASE INDICATE :RUBBER GLOVES, CONDOMS, UNDERWEAR, OTHER (DOCUMENT IN NOTES) BRAS LATEX ALLERGY : HAVE YOU EVER DEVELOPED ANY TYPE OF REACTION DURING OR AFTER DENTAL APPOINTMENT, VAGINAL/RECTAL EXAMINATION, SURGICAL PROCEDURE, OR ANY OTHER EXPOSURE?YES - PLEASE INDICATE :VAGINAL EXAM LATEX RISK : HAVE YOU EVER HAD ANY DIFFICULTY BREATHING OR HIVES AFTER EATING OR HANDLING ANY FRUITS, OR VEGETABLES; SUCH KIWI, BANANAS, STONE FRUITS, OR CHESTNUTSNO LATEX RISK : DO YOU HAVE A PREVIOUS PERSONAL HISTORY OF MORE THAN NINE SURGERIES, SPINA BIFIDA, OR REPEATED CATHERIZATIONS? YES - PLEASE INDICATE : > 9 SURGERIES LATEX RISK : ARE YOU FREQUENTLY EXPOSED TO LATEX PRODUCTS IN YOUR OCCUPATION?NO DATE ASKED : 05/07/2019 CAFFEINE CAFFEINE USE?YES 2-3 CUPS COFFEE & ICED TEA THROUGH THE DAY. ADVANCE DIRECTIVE ADVANCE DIRECTIVE DISCUSSED WITH PATIENT:YES 09/15/19 PT DOES NOT HAVE ANY ADVANCED DIREDCTIVES AND SHE DECLINES INFORMATION ON HCP AT THIS TIME. JS RESTORATION [id number] HOAHAOISM MARITAL STATUS: SINGLE. ALCOHOL SCREENING DID YOU HAVE A DRINK CONTAINING ALCOHOL IN THE PAST YEAR?NO POINTS0 INTERPRETATIONNEGATIVE OCCUPATION: UNEMPLOYED. SEXUAL HX HAD SEX IN THE LAST 12 MONTHS (VAGINAL, ORAL, OR ANAL)?NO LMP:2009 HAVE YOU EVER HAD AN STD?NO REVIEWED WITH PT 06/23/18 1154 BVREVIEWED WITH PATIENT 07/07/18 1158 JS11/05/18 REVIEWED WITH PT. AD12/07/18 REVIEWED WITH PT. AD04/16/19 REVIEWED WITH PT 1204 LASREVIEWED WITH PATIENT 05/25/19 1055 NLJREVIEWED WITH PATIENT 05/25/19 NLJREVIEWED WITH PT 05/03/19 0945 BVPRE-SCREENING COMPLETED 09/15/19 1444 JS. HOSPITALIZATION/MAJOR DIAGNOSTIC PROCEDURE SURGERY RELATED [facility] ([facility]) 05/2012 ADMITTED TO [facility] 12/2015 [facility] - RUPTURED BLADDER 10/2016 [facility] 2 DAY HOSPITAL STAY DUE TO NICKED BOWEL 12/19/2017 PNEUMONIA 2015 & 2017 REHAB 2013 REVIEW OF SYSTEMS REVIEWED BY: PROVIDER: . CONSTITUTIONAL: ANY CHANGE IN YOUR MEDICAL CONDITION? NO . CHILLS NO . FEVER NO . INFECTION: DO YOU HAVE NEW INFECTIONS? NO . DO YOU HAVE HISTORY OF MRSA? NO . MUSCULOSKELETAL: ANY NEW PATTERNS OF PAIN OR NUMBNESS? NO . GASTROENTEROLOGY: ANY NEW CHANGE IN BOWEL CONTROL? NO . GENITOURINARY: ANY NEW CHANGE IN BLADDER CONTROL? NO . IS THERE A CHANCE YOU COULD BE ? NO . HEMATOLOGY/LYMPH: DO YOU TAKE ANY BLOOD THINNERS? (FOR EXAMPLE- COUMADIN, PLAVIX, AGGRENOX, PLATEL, PRADAXA, OR XARELTO) NO . WHEN WAS YOUR LAST DOSE? DATE: TIME: . NEUROLOGY: HAVE YOU FALLEN IN THE PAST 12 MONTHS? NO . ANY NEW EXTREMITY NUMBNESS OR WEAKNESS? NO . CARDIOLOGY: DO YOU HAVE A PACEMAKER OR DEFIBRILLATOR? NO . RESPIRATORY: HAVE YOU BEEN SICK IN THE PAST WEEK? NO . FEVER NO . FLU LIKE SYMPTOMS? NO . COUGH NO . INTEGUMENTARY: DO YOU HAVE ANY RASHES OR OPEN SORES? NO . ALLERGIC/IMMUNO: ARE YOU ALLERGIC TO IV DYE? NO . ANY NEW ALLERGIES? NO . PSYCHIATRIC: DO YOU HAVE THOUGHTS OF HURTING YOURSELF OR SOMEONE ELSE? NO . ARE YOU ABUSED, NEGLECTED, OR IN AN UNSAFE ENVIRONMENT? NO . ENDOCRINOLOGY: ARE YOU DIABETIC? NO . OTHER: DO YOU NEED ANY PRESCRIPTIONS? NO . IF YES, PLEASE LIST: ____ . ANY NEW PROBLEMS WITH YOUR MEDICATIONS? NO . WHEN DID YOU LAST EAT? 09/22/19 1900 . WHEN DID YOU LAST DRINK? 09/23/19 0600 . WHAT DID YOU LAST DRINK? WATER . NAME OF PERSON DRIVING YOU HOME? MOTHER OR YELLOW CAB . DO YOU HAVE ANY OTHER QUESTIONS OR CONCERNS NO . VITAL SIGNS WT 192 LBS, HT 67", BMI 30.07 INDEX, BP 113/68 MM HG, HR 75 /MIN, RR 18 /MIN, TEMP 97.3 F, OXYGEN SAT % 100%, SAFE IN ENV? (Y/N) YES, NA INITIALS IA 11:41, REVIEWED BY: MILLER. ASSESSMENTS CHRONIC MIGRAINE - G43.709 (PRIMARY) PROCEDURES PN BOTOX INJECTIONS SUBSEQUENT INJECTIONS DATE OF PROCEDURE : PRE PROCEDURE DIAGNOSIS CHRONIC MIGRAINE HEADACHES. POST PROCEDURE DIAGNOSIS CHRONIC MIGRAINE HEADACHES. PROCEDURE BOTOX INJECTION AT THE HEAD, NECK, AND SHOULDERS. SURGEON DR. HARRISON ZEPEDA SURGICAL ASSISTANT CERTIFIED NONE ANESTHESIA NONE PRE PROCEDURE NOTE 39 YEAR-OLD PATIENT WITH HISTORY OF CHRONIC MIGRAINE HEADACHES. I EVALUATED THE PATIENT AND REVIEWED THE CHART. I WENT OVER THE RISKS, ALTERNATIVES, AND BENEFITS ASSOCIATED WITH THIS PROCEDURE. THE PATIENT WOULD LIKE TO PROCEED AND GAVE CONSENT TO PERFORM THE PROCEDURE. THE PATIENT DENIES UNEXPLAINABLE WEIGHT LOSS, FEVER, CHILLS, OR NEW CHANGES IN URINARY OR BOWEL CONTROL. THE PATIENT HAS BOTOX INJECTION IN THE PAST AT THE HEAD, NECK, AND SHOULDERS AND EXPRESSED GREAT REDUCTION ON HER PAIN WITH MORE THAN 50% REDUCTION ON THE FREQUENCY AND INTENSITY OF THE HEADACHES. THE PATIENT SAID THAT THE USE OF BOTOX HAD SIGNIFICANTLY REDUCED THE SEVERITY OF THE HEADACHES, BUT SHE IS NOW EXPERIENCING HEADACHES EVERY DAY AGAIN AFTER NOT HAVING BOTOX FOR 6 MONTHS. THE PATIENT SAYS SHE WOULD LIKE TO PROCEED WITH THIS PROCEDURE AGAIN TODAY. I INFORMED THE PATIENT OF THE IMPORTANCE OF CONTINUE RECEIVING BOTOX EVERY 3 MONTHS IF IT IS EFFECTIVE FOR HER. DESCRIPTION OF PROCEDURE THE PATIENT WAS BROUGHT TO THE PROCEDURE ROOM AND PLACED IN THE SUPINE POSITION. I CHECKED LATERALITY AND THE AREAS WHERE THE PROCEDURE WAS GOING TO BE PERFORMED WITH THE PATIENT AND THE SUPPORTING STAFF AT THE MOMENT OF THE TIME OUT IN THE PROCEDURE ROOM. FOR THE PROCEDURE I USED A SOLUTION OF 5 UNITS OF BOTOX PER EACH 0.1 ML OF THE SOLUTION. I USED A 30-GAUGE NEEDLE TO INJECT THE SOLUTION AT THE SELECTED LOCATIONS. I INJECTED FIRST THE RIGHT AND LEFT FLORICULTURE PROFESSOR MUSCLES. THE LANDMARK FOR BOTH INJECTIONS WAS APPROXIMATELY 1 CM ABOVE THE SUPERIOR MEDIAL EDGE OF THE EYEBROW. AFTER THESE TWO INJECTIONS, I INJECTED THE PROCERUS MUSCLE AT THE MIDLINE POINT BETWEEN THESE FIRST TWO INJECTIONS. THEN I PROCEEDED TO INJECT THE RIGHT AND LEFT FRONTALIS MUSCLE. TWO INJECTIONS WERE DONE IN EACH SIDE. THE FIRST INJECTION WAS DONE APPROXIMATELY 2 CM ABOVE THE FIRST INJECTION OF THE FLORICULTURE PROFESSOR. THE SECOND INJECTION WAS DONE APPROXIMATELY 1.5 CM LATERAL TO THIS FIST INJECTION OF THE FRONTALIS OF EACH SIDE. AFTER THE INJECTIONS OVER THE FOREHEAD WERE DONE, THE PATIENT'S HEAD WAS TURNED TO THE LEFT SIDE AND WE STARTED TO WORK WITH THE RIGHT TEMPORALIS MUSCLE. FIRST INJECTION WAS DONE IN A VERTICAL LINE OF THE TRAGUS APPROXIMATELY 3 CM ABOVE THE TRAGUS. THE SECOND INJECTION WAS DONE APPROXIMATELY 2 CM ABOVE THE FIRST INJECTION. THE THIRD INJECTION WAS DONE APPROXIMATELY 1 CM FRONTWARD FROM THIS VERTICAL LINE CREATED AT THE LEVEL OF THE TRAGUS, LONG-TERM BETWEEN THESE TWO INJECTIONS. THE FOURTH INJECTION WAS DONE APPROXIMATELY 1.5 CM BACK FROM THE SECOND INJECTION TO THE TEMPORALIS IN LINE TO THE MIDPORTION OF THE EAR. THEN, WE PROCEEDED TO INJECT THE LEFT TEMPORALIS MUSCLE. WE CLEANED THE AREA WITH ALCOHOL AND PROCEEDED TO PERFORM THE SAME FOR INJECTIONS DESCRIBED ABOVE BUT IN THE LEFT TEMPORALIS MUSCLE USING THE SAME LANDMARKS. AFTER THESE INJECTIONS WERE DONE, THE PATIENT WAS SEATED. FIRST, WE STARTED TO INJECT THE LEFT AND RIGHT OCCIPITALIS MUSCLE. I INJECTED AT THE FOLLOWING PLACES IN THE RIGHT AND LEFT MUSCLE. THE FIRST INJECTION WAS DONE AT THE MIDPOINT POSITION BETWEEN THE MASTOID PROCESS AND THE INION OF THE OCCIPITAL PROTUBERANCE. THE SECOND INJECTION WAS DONE APPROXIMATELY 1.5 CM SUPERIOR AND LATERAL OF THIS POINT. THE THIRD INJECTION WAS DONE APPROXIMATELY 1.5 CM SUPERIOR AND MEDIAL TO THIS FIRST INJECTION. NEXT, I PROCEEDED TO INJECT THE RIGHT AND LEFT PARASPINAL MUSCLES. LANDMARK OF THE INJECTION WERE APPROXIMATELY: FIRST INJECTION 3 CM BELOW THE INION AND 1 CM LATERAL TO THE MIDLINE AND SECOND INJECTION AT EACH SIDE WAS DONE APPROXIMATELY 1.5 CM SUPERIOR AND LATERAL OF THE FIRST INJECTION. THE LAST GROUP OF INJECTIONS WAS DONE OVER THE RIGHT AND LEFT TRAPEZIUS MUSCLE OVER THE SHOULDER AREA. THE FIRST INJECTION WAS DONE AT THE MIDPOINT BETWEEN THE INFLECTION POINT BETWEEN THE NECK AND SHOULDER AND THE ACROMION. THE SECOND AND THIRD INJECTIONS WERE DONE APPROXIMATELY 2.5 CM LATERAL AND MEDIAL FROM THIS FIRST INJECTION. SAME TARGETS WERE USED IN THE RIGHT AND LEFT SIDE. IN TOTAL, I INJECTED 155 UNITS OF BOTOX. PROCEDURE WAS DONE WITHOUT EVIDENCE OF PARESTHESIA, PNEUMOTHORAX, OR ANY COMPLICATIONS. THE PATIENT TOLERATED THE PROCEDURE VERY WELL. THE PATIENT WAS SENT TO THE RECOVERY ROOM FOR OBSERVATIONS. INJECTIONS WERE DONE AFTER CLEANING WITH ALCOHOL, USING ASEPTIC TECHNIQUES. POST PROCEDURE NOTE I AM LOOKING FOR LONG LASTING PAIN RELIEF WITH THIS INJECTION. THE PROCEDURE WAS DISCUSSED WITH THE PATIENT. THE PATIENT WILL BE SEEN IN A FOLLOW UP IN THE NEXT FEW WEEKS. INSTRUCTIONS WERE GIVEN, QUESTIONS WERE ANSWERED, AND THE PATIENT EXPRESSED UNDERSTANDING AND AGREED WITH THE PLAN. I, CYRUS PALMER, DOCUMENTED THE ABOVE INFORMATION ACTING A SCRIBE FOR DR. ZEPEDA. I HAVE REVIEWED THE ABOVE DOCUMENT, WRITTEN BY CYRUS PALMER SCRIBKarissa AND I VERIFY THAT IT IS ACCURATE. PROCEDURE CODES 98735 CHEMODENERV [facility] MIGRAINE DISPOSITION & COMMUNICATION FOLLOW UP 3 WEEKS ELECTRONICALLY SIGNED BY HARRISON ZEPEDA MD, MD ON 10/03/2019 AT 01:09 PM EST DISCLAIMER : THIS IS A VISIT SUMMARY EXTRACTED FROM THE [employer] CHART. IT IS NOT A COPY OF THE [employer] PROGRESS NOTE. MTDMagen
== END ==
LOC: M PAIN 11:30
PROVIDERS: ATTEND Anesthesiology
DX: G43.709 Chronic migraine without aura, not intractable, without status migrainosus (principal)
CPT/HCPCS: 64615; J0585

== ENCOUNTER → 2019-10-18 | Outpatient (CLI) | payer OTHER ==
[~2019-10-18] MED LIST changes: -BOTULINUM INJ 100 UNITS (J0585) IM ONE; -diazePAM 5 MG TAB As Ordered ONE; -oxyCODONE 5MG TAB As Ordered ONE
[2019-10-18 10:45] LABS: MAGNESIUM LEVEL 2.4 MG/DL (1.8-2.4)
[2019-10-18 13:35] LABS: TOTAL 25(OH) VITAMIN D 28.3 NG/ML (30.0-100.0)
== END ==
LOC: M LAB 08:59
PROVIDERS: ATTEND Internal Medicine Gastroenterology
DX: K59.00 Constipation, unspecified (principal); R10.31 Right lower quadrant pain; K21.9 Gastro-esophageal reflux disease without esophagitis; E55.9 Vitamin D deficiency, unspecified

== ENCOUNTER → 2019-10-18 | Outpatient (CLI) | payer OTHER ==
[2019-10-18 10:27] LABS: BASO % 0.6 % (0.0-1.0); EOS # 0.1 10^3/uL (0.0-0.5); EOS % 1.3 % (0.0-3.0); HEMOGLOBIN 12.8 g/dl (12.0-15.5); LYMPH # 1.8 10^3/uL (1.5-5.0); MEAN CORPUSCULAR HEMOGLOBIN 28.5 pg (27.0-33.0); MEAN CORPUSCULAR HGB CONC 30.5 g/dl (32.0-36.5); MEAN CORPUSCULAR VOLUME 93.5 fl (80.0-96.0); MONO # 0.3 10^3/uL (0.0-0.8); MONO % 5.2 % (0.0-5.0); NEUTROPHILS # 3.2 10^3/uL (1.5-8.5); NEUTROPHILS % 59.7 % (36.0-66.0); PLATELET COUNT, AUTOMATED 148 10^3/uL (150-450); RED BLOOD COUNT 4.49 10^6/uL (4.00-5.40); WHITE BLOOD COUNT 5.4 10^3/uL (4.0-10.0)
[2019-10-18 11:00] LABS: ALBUMIN 3.5 GM/DL (3.2-5.2); ALT/SGPT 26 U/L (12-78); BILIRUBIN,DIRECT 0.1 MG/DL (0.0-0.2); BILIRUBIN,TOTAL 0.4 MG/DL (0.2-1.0); BLOOD UREA NITROGEN 10 MG/DL (7-18); CALCIUM LEVEL 9.4 MG/DL (8.5-10.1); CARBON DIOXIDE LEVEL 25 MEQ/L (21-32); CHLORIDE LEVEL 108 MEQ/L (98-107); CREATININE FOR GFR 0.76 MG/DL (0.55-1.30); ETHYL ALCOHOL (ETHANOL) < 0.003 % (0.000-0.010); GLOMERULAR FILTRATION RATE > 60.0 (>60); GLUCOSE, FASTING 80 MG/DL (70-100); POTASSIUM SERUM 4.3 MEQ/L (3.5-5.1); SODIUM LEVEL 139 MEQ/L (136-145); TOTAL PROTEIN 7.4 GM/DL (6.4-8.2)
[2019-10-18 13:24] LABS: HEPATITIS B SURFACE ANTIGEN NEGATIVE (NEGATIVE)
[2019-10-18 13:52] LABS: HEPATITIS C VIRUS ABY INDEX < 0.0 INDEX (<0.8)
[2019-10-18 13:53] LABS: HEPATITIS B CORE ANTIBODY IGM NEGATIVE (NEGATIVE); HIV 1&2 SCREEN CENTAUR NEGATIVE (NEGATIVE)
[2019-10-18 14:06] LABS: HEPATITIS A ANTIBODY IGM NEGATIVE (NEGATIVE)
== END ==
LOC: M LAB 09:02
PROVIDERS: ATTEND Family Medicine
DX: F10.10 Alcohol abuse, uncomplicated (principal)
CPT/HCPCS: 36415; 80053; 80307; 82248; 85025; 86705; 86709; 86803; 87340; 87389; G0480

== ENCOUNTER → 2019-10-22 | Outpatient (CLI) | payer OTHER ==
--- NOTE | 2019-10-26 06:54 | ECWPNPC ---
PATIENT NAME: ADELA ALMONTE : 1980 GENDER: FEMALE VISIT DATE: 10/22/2019 DISCHARGE DATE: 10/22/19 1146 VISIT LOCKED DATE TIME: PHYSICIAN: RAVEN CORDON RESOURCE: RAVEN CORDON REASON FOR APPOINTMENT 1. POST BOTOX HISTORY OF PRESENT ILLNESS HISTORY OF PRESENT ILLNESS: PAIN THE PATIENT DESCRIBES THE PAIN... 39-YEAR-OLD FEMALE IN FOR POST BOTOX FOLLOW-UP. SHE RATES HER PAIN PREPROCEDURE AT A 9 OUT OF 10 AND POST PROCEDURE AT A 5 OUT OF 10. SHE DESCRIBES HER PAIN ACHING, SHARP, BURNING, STABBING, SORE, SHOOTING, AND TENDER. SHE FEELS THE BOTOX INJECTION CONTINUES TO HELP HER TODAY. SHE RATES HER PAIN CURRENTLY AT A 5 OUT OF 10 FOR HER HEAD. FALL RISK SCREENING: SCREENING :NO FALLS REPORTED IN THE LAST YEAR CURRENT MEDICATIONS TAKING CUVITRU 4 GM/20ML SOLUTION 14 GRAMS SUBCUTANEOUS EVERY 3 MONTHS TAKING BUSPIRONE HCL 30 MG TABLET 1 TABLET ORALLY TWICE A DAY TAKING VYVANSE 70 MG CAPSULE 1 CAPSULE IN THE MORNING ORALLY ONCE A DAY TAKING VRAYLAR 3 MG CAPSULE 1 CAPSULE ORALLY ONCE A DAY TAKING AMMONIUM LACTATE 10 % LOTION 1 APPLICATION TO AFFECTED AREA EXTERNALLY TWICE A DAY, NOTES: HAS NOT USED IN A WHILE TAKING ESTRADIOL 0.025 MG/24HR PATCH TWICE WEEKLY 1 PATCH TO SKIN TRANSDERMAL WEEKLY TAKING MOVANTIK 25 MG TABLET 1 TABLET IN THE MORNING ORALLY ONCE A DAY TAKING IMITREX 4 MG/0.5ML SOLUTION 1 INJECTION NEEDED AT THE ONSET OF A MIGRAINE SUBCUTANEOUS REPEAT TIMES ONE IF NOT EFFECTIVE (DR JC) TAKING FLUTICASONE PROPIONATE 50 MCG/ACT SUSPENSION 1 SPRAY IN EACH NOSTRIL NASALLY ONCE A DAY TAKING IBUPROFEN 800 MG TABLET 1 TABLET WITH FOOD OR MILK NEEDED ORALLY THREE TIMES A DAY NEEDED FOR SEVERE HEADACHES TAKING VENTOLIN HFA 108 (90 BASE) MCG/ACT AEROSOL SOLUTION 2 PUFFS NEEDED INHALATION EVERY 4 HRS PRN TAKING ALBUTEROL SULFATE (2.5 MG/3ML) 0.083% NEBULIZATION SOLUTION 1 VIAL INHALATION EVERY 6 HRS PRN TAKING PHENERGAN 25 MG TABLET 1 TABLET ORALLY EVERY 6 HRS PRN NAUSEA TAKING LASIX 20 MG TABLET 1 TABLET ORALLY ONCE A DAY TAKING ACETAMINOPHEN 500 MG CAPSULE 1 CAPSULES NEEDED ORALLY EVERY 6 HRS PRN TAKING ZYRTEC 10 MG TABLET 1 TABLET NEEDED ORALLY ONCE A DAY TAKING MINIPRESS 1 MG CAPSULE 1 CAPSULE AT BEDTIME ORALLY ONCE A DAY TAKING CHANTIX 1 MG TABLET 1 TABLET ORALLY TWICE A DAY TAKING KETOCONAZOLE 2 % CREAM 1 APPLICATION TO AFFECTED AREA EXTERNALLY ONCE A DAY TO BOTH FEET TAKING BENTYL 20 MG TABLET DIRECTED ORALLY TID TAKING PEPCID 20 MG TABLET 1 TABLET AT BEDTIME NEEDED ORALLY ONCE A DAY TAKING PROTONIX 40 MG TABLET DELAYED RELEASE 1 TABLET ORALLY DAILY TAKING TOPAMAX 50 MG TABLET 1 TABLET ORALLY BID TAKING LYRICA 200 MG CAPSULE 1 CAPSULE ORALLY THREE TIMES A DAY MDD3 TAKING DOXYCYCLINE MONOHYDRATE 100 MG CAPSULE TAKE ONE CAPSULE BY MOUTH EVERY TWELVE HOURS FOR 21 DAYS ORAL TAKING NIFEDIPINE 20 MG CAPSULE 1 CAPSULE ORALLY DAILY TAKING LOSARTAN POTASSIUM 25 MG TABLET 1 TABLET ORALLY ONCE A DAY TAKING BELBUCA 150 MCG FILM 1 FILM TO THE GUM BUCALLY EVERY 12 HRS TAKING TRULANCE 3 MG TABLET 1 TABLET ORALLY ONCE A DAY NOT-TAKING FERROUS SULFATE 325 (65 FE) MG TABLET 1 TABLET ORALLY EVERY OTHER DAY NOT-TAKING LORAZEPAM 1 MG 1 TAB ORAL FOUR TIMES DAILY NOT-TAKING NARATRIPTAN HCL 2.5 MG TABLET 1 TABLET NEEDED ONE TIME AT ONSET OF MIGRAINE ORALLY MAY REPEAT IN 2 HRS ONCE A DAY MDD2 NOT-TAKING POTASSIUM CHLORIDE ER 20 MEQ TABLET EXTENDED RELEASE 1 TABLET WITH FOOD ORALLY ONCE A DAY NOT-TAKING TIZANIDINE HCL 4 MG TABLET 1 TABLET NEEDED ORALLY FOR SPASMS AND PAIN Q8H PRN MDD3 NOT-TAKING CLARITIN 10 MG TABLET 1 TABLET ORALLY ONCE A DAY MEDICATION LIST REVIEWED AND RECONCILED WITH THE PATIENT PAST MEDICAL HISTORY SURGICAL MENOPAUSE S/P ELIA & BSO 2009 CHRONIC NECK/MID/LOW BACK PAIN PEPTIC ULCER DISEASE, S/P GASTRIC BYPASS - ON PROTONIX AND CARAFATE BY DR. MILLER BIPOLAR, ANXIETY, DEPRESSION - FOLLWS WITH DR. OTERO ALCOHOLISM MIGRAINE HEADACHES TOBACCO USE ADD CHRONIC RHINITIS/SINUSITIS RAYNAUD'S SYNDROME COMMON VARIABLE IMMUNO DEFICIENCY DISEASE ASTHMA HEART MURMUR - ECHO 10/2017 BORDERLINE LVH, MILD LAE, SUBTLE AV SCLEROSIS, AORTIC SCLEROSIS, MILD AR, MILD MR SLEEP APNEA WITH BIPAP S/P GASTRIC BYPASS FAINTING SPELLS CHRONIC PNEUMONIA ALLERGIES MORPHINE: , DIFF. BREATHING - ALLERGY LATEX: HIVES - ALLERGY DILAUDID: HIVES, DIFF. BREATHING - ALLERGY REGLAN: HIVES - ALLERGY LAMICTAL: HIVES - ALLERGY DEPAKOTE: CONFUSION - CONTRAINDICATION RISPERDAL: SUICIDAL IDEATION - ALLERGY KETOROLAC TROMETHAMINE: ANAPHYLAXIS - ALLERGY MUSCLE RELAXERS: ALTERED MENTAL STATUS - SIDE EFFECTS GASTROGRAFIN: HIVES - ALLERGY SURGICAL HISTORY LUMBAR LAMINECTOMY [place] 02/11 BACK SURGERY 1997 LAPAROTOMY X 4...CARTHAGE....DR. CRISTOBAL CHOLECYSTECTOMY 07/13 HYSTERECTOMY, APPENDECTOMY - FOR ENDOMETRIOSIS 12/13 GASTRIC BYPASS (DR. CARTAGENA, [facility]) 01/2012 LAPAROSCOPY AND REMOVAL OF ADHESIONS (DR. BARRERA) 12/2012 CHEST TUBE ENDOSCOPY/COLONOSCOPY BLOOD TRANSFUSION BLADDER REPAIR 10/2016 LAPROSCOPC SURGERY FOR ENDOMETRIOSIS / LYSIS OF ADHESIONS AND SCAR TISSUE (BOWEL NICKED IN OR). 12/19/17 EGD - ESOPHAGEAL PLAQUE - BIOPSY RESULTS NOT SENT TO US (DR. MILLER) 05/2018 REMOVAL CYSTS IN BILATERAL EARS REMOVAL OF NEEDLE FROM RIGHT FOOT FAMILY HISTORY FATHER: ALIVE, DIAGNOSED WITH UNSPECIFIED CEREBRAL ARTERY OCCLUSION WITH CEREBRAL INFARCTION, OTHER MALIGNANT NEOPLASM OF UNSPECIFIED SITE MOTHER: ALIVE, DIABETES, HYPERTENSION, UNSPECIFIED HEART DISEASE FATHER SKIN CANCER\\\\\\\\NSISTER WITH HOSHIMOTO\\\\\\\\\\\\\\'S. DENIES FAMILY HX OF PANCREATIC CANCER, GRANDMOTHER AND FATHER HAD MELANOMA. SOCIAL HISTORY GENERAL: TOBACCO USE ARE YOU A:CURRENT SMOKER ARE YOU INTERESTED IN QUITTING?READY TO QUIT WAITING FOR PRESCRIPTION FOR CHANTIX. COUNSELED THE PATIENT ON TOBACCO USE, CESSATION [id number]/11/2019 HOW MANY CIGARETTES A DAY DO YOU SMOKE?11-20 HOW SOON AFTER YOU WAKE UP DO YOU SMOKE YOUR FIRST CIGARETTE?AFTER 60 MIN HOW OFTEN DO YOU SMOKE CIGARETTES?EVERY DAY PATIENT COUNSELED ON THE DANGERS OF TOBACCO USE AND URGED TO QUIT:10/22/2019 HIV / HEP-C SCREENING HIV TEST OFFERED TO PATIENT:YES DATE OFFERED:03/13/2017 TEST ACCEPTED:NO HEP-C TEST OFFERED TO PATIENT:NO REASON:PATIENT DECLINED EDUCATION LEVEL OF EDUCATION:NOT FINISHED COLLEGE DIET: REGULAR. LANGUAGE LANGUAGES SPOKEN:EMIRATI DOMESTIC VIOLENCE DO YOU FEEL SAFE IN YOUR ENVIRONMENT?YES BMI CARE GOAL FOLLOW-UP ABOVE NORMAL BMI FOLLOW-UPDIETARY MANAGEMENT EDUCATION, GUIDANCE, AND COUNSELING, DIETARY NEEDS EDUCATION, EXERCISE PROMOTION: STRENGTH TRAINING RECREATIONAL DRUG USE DRUG USE?NO EXERCISE: NO REGULAR EXERCISE. LEARNING BARRIERS / SPECIAL NEEDS CHANGE FROM LAST VISIT?NO 10/07/19 BARRIERS TO LEARNING?NO HEARING IMPAIRED?YES VISION IMPAIRED?YES COGNITIVELY IMPAIRED?NO :CORRECTIVE LENSES READINESS TO LEARN?YES LEARNING PREFERENCES?NO LEARNING CAPABILITIES PRESENT?YES EMOTIONAL BARRIERS?NO SPECIAL DEVICES?NO RACK LOADER NEEDED?NO LUNG CANCER SCREENING SMOKING STATUS:CURRENT SMOKER PAIN CLINIC PFS, CLERGY, PUBLIC HEALTH REFERRALS PFS REFERRAL NEEDED?NO CLERGY REFERRAL NEEDED?NO PUBLIC HEALTH REFERRAL NEEDED?NO WAS THE PROVIDER NOTIFIED OF ANY PERTINENT INFO?YES N/A HAS THE PATIENT BEEN EDUCATED REGARDING HIS/HER PLAN OF CARE?YES HAS THE PATIENT BEEN EDUCATED REGARDING PAIN, THE RISK FOR PAIN, THE IMPORTANCE OF EFFECTIVE PAIN MANAGEMENT, AND THE PAIN ASSESSMENT PROCESS?YES LATEX QUESTIONNAIRE LATEX ALLERGY : HAVE YOU EVER DEVELOPED ANY TYPE OF REACTION AFTER HANDLING LATEX PRODUCTS SUCH RUBBER GLOVES, CONDOMS, DIAPHRAGMS, BALLOONS, SOCKS, OR UNDERWEAR?YES - PLEASE INDICATE :RUBBER GLOVES, CONDOMS, UNDERWEAR, OTHER (DOCUMENT IN NOTES) BRAS LATEX ALLERGY : HAVE YOU EVER DEVELOPED ANY TYPE OF REACTION DURING OR AFTER DENTAL APPOINTMENT, VAGINAL/RECTAL EXAMINATION, SURGICAL PROCEDURE, OR ANY OTHER EXPOSURE?YES - PLEASE INDICATE :VAGINAL EXAM LATEX RISK : HAVE YOU EVER HAD ANY DIFFICULTY BREATHING OR HIVES AFTER EATING OR HANDLING ANY FRUITS, OR VEGETABLES; SUCH KIWI, BANANAS, STONE FRUITS, OR CHESTNUTSNO LATEX RISK : DO YOU HAVE A PREVIOUS PERSONAL HISTORY OF MORE THAN NINE SURGERIES, SPINA BIFIDA, OR REPEATED CATHERIZATIONS? YES - PLEASE INDICATE : > 9 SURGERIES LATEX RISK : ARE YOU FREQUENTLY EXPOSED TO LATEX PRODUCTS IN YOUR OCCUPATION?NO DATE ASKED : 10/22/2019 CAFFEINE CAFFEINE USE?YES 2-3 CUPS COFFEE & ICED TEA THROUGH THE DAY. ADVANCE DIRECTIVE ADVANCE DIRECTIVE DISCUSSED WITH PATIENT:YES PT DOES NOT HAVE ANY ADVANCED DIREDCTIVES AND SHE DECLINES INFORMATION ON HCP AT THIS TIME. HINDUISM [id number] ORIENTAL ORTHODOX MARITAL STATUS: SINGLE. ALCOHOL SCREENING DID YOU HAVE A DRINK CONTAINING ALCOHOL IN THE PAST YEAR?NO POINTS0 INTERPRETATIONNEGATIVE OCCUPATION: UNEMPLOYED. SEXUAL HX HAD SEX IN THE LAST 12 MONTHS (VAGINAL, ORAL, OR ANAL)?NO LMP:2009 HAVE YOU EVER HAD AN STD?NO REVIEWED WITH PT 06/23/18 1154 BVREVIEWED WITH PATIENT 07/07/18 1158 JS11/05/18 REVIEWED WITH PT. AD12/07/18 REVIEWED WITH PT. AD04/16/19 REVIEWED WITH PT 1204 LASREVIEWED WITH PATIENT 05/25/19 1055 NLJREVIEWED WITH PATIENT 05/25/19 NLJREVIEWED WITH PT 05/03/19 0945 BVPRE-SCREENING COMPLETED 09/15/19 1444 [id number] REVIEWED WITH PATIENT DS. HOSPITALIZATION/MAJOR DIAGNOSTIC PROCEDURE SURGERY RELATED [facility] ([facility]) 05/2012 ADMITTED TO [facility] 12/2015 [facility] - RUPTURED BLADDER 10/2016 [facility] 2 DAY HOSPITAL STAY DUE TO NICKED BOWEL 12/19/2017 PNEUMONIA 2015 & 2017 REHAB 2013 REVIEW OF SYSTEMS REVIEWED BY: PROVIDER: ENRIQUETA CALL-Jose Elias . CONSTITUTIONAL: ANY CHANGE IN YOUR MEDICAL CONDITION? YES, PT BEING EVALUATED FOR POTENTIAL LYME DISEASE . CHILLS NO . FEVER NO . INFECTION: DO YOU HAVE NEW INFECTIONS? YES, UPPER RESPIRATORY INFECTION . DO YOU HAVE HISTORY OF MRSA? YES . MUSCULOSKELETAL: ANY NEW PATTERNS OF PAIN OR NUMBNESS? NO . GASTROENTEROLOGY: ANY NEW CHANGE IN BOWEL CONTROL? NO . GENITOURINARY: ANY NEW CHANGE IN BLADDER CONTROL? NO . IS THERE A CHANCE YOU COULD BE ? NO . HEMATOLOGY/LYMPH: DO YOU TAKE ANY BLOOD THINNERS? (FOR EXAMPLE- COUMADIN, PLAVIX, AGGRENOX, PLATEL, PRADAXA, OR XARELTO) NO . WHEN WAS YOUR LAST DOSE? DATE: TIME: . NEUROLOGY: HAVE YOU FALLEN IN THE PAST 12 MONTHS? YES, PT STATES THAT SHE FELL WHILE AT [employer], INJURED BACK, HIT LOW BACK ON [place], NO REPORT TO ED. BRUISING AT SITE, SWELLING, HAS RESOLVED SINCE FALL. DS . ANY NEW EXTREMITY NUMBNESS OR WEAKNESS? NO . CARDIOLOGY: DO YOU HAVE A PACEMAKER OR DEFIBRILLATOR? NO . RESPIRATORY: HAVE YOU BEEN SICK IN THE PAST WEEK? YES . FEVER NO . FLU LIKE SYMPTOMS? NO . COUGH NO . INTEGUMENTARY: DO YOU HAVE ANY RASHES OR OPEN SORES? NO . ALLERGIC/IMMUNO: ARE YOU ALLERGIC TO IV DYE? NO . ANY NEW ALLERGIES? NO . PSYCHIATRIC: DO YOU HAVE THOUGHTS OF HURTING YOURSELF OR SOMEONE ELSE? NO . ARE YOU ABUSED, NEGLECTED, OR IN AN UNSAFE ENVIRONMENT? NO . ENDOCRINOLOGY: ARE YOU DIABETIC? NO . OTHER: DO YOU NEED ANY PRESCRIPTIONS? YES, BELBUCA, LYRICA, TOPOMAX . IF YES, PLEASE LIST: ____ . ANY NEW PROBLEMS WITH YOUR MEDICATIONS? NO . WHEN DID YOU LAST EAT? ____ . WHEN DID YOU LAST DRINK? ____ . WHAT DID YOU LAST DRINK? ____ . NAME OF PERSON DRIVING YOU HOME? ____ . DO YOU HAVE ANY OTHER QUESTIONS OR CONCERNS NO . VITAL SIGNS WT 199.4 LBS, HT 67", BMI 31.23 INDEX, BP 117/70 MM HG, HR 75 /MIN, RR 18 /MIN, TEMP 97.6 F, OXYGEN SAT % 99%, SAFE IN ENV? (Y/N) Y, NA INITIALS TX 11:04, REVIEWED BY: NICO. EXAMINATION GENERAL EXAMINATION: GENERALNO ACUTE DISTRESS, WELL NOURISHED AND HYDRATED. PSYCHAPPROPRIATE MOOD AND AFFECT . LUNGS:CLEAR TO AUSCULTATION BILATERALLY, NO WHEEZES, RHONCHI, RALES. HEART:NO MURMURS, REGULAR RATE AND RHYTHM. ASSESSMENTS CHRONIC MIGRAINE WITHOUT AURA, NOT INTRACTABLE, WITHOUT STATUS MIGRAINOSUS - G43.709 (PRIMARY) TREATMENT CHRONIC MIGRAINE WITHOUT AURA, NOT INTRACTABLE, WITHOUT STATUS MIGRAINOSUS REFILL TOPAMAX TABLET, 50 MG, 1 TABLET, ORALLY, BID, 30 DAYS, 60 TABLET REFILL BELBUCA FILM, 150 MCG, 1 FILM TO THE GUM, BUCALLY, EVERY 12 HRS, 30 DAY(S), 60, REFILLS 0 CLINICAL NOTES: 39-YEAR-OLD FEMALE IN FOR POST BOTOX INJECTION FOLLOW-UP. PATIENT DOES ADMIT THAT SHE WILL BE RECEIVING HER BOTOX INJECTIONS THAT NEUROLOGY FROM THIS POINT FORWARD. GIVEN PRESENTING SYMPTOMS AND RESULTS OF PHYSICAL EXAMINATION RECOMMENDED FOLLOW-UP IN 2 MONTHS. PATIENT HAS EXPRESSED UNDERSTANDING OF AND WAS IN AGREEMENT WITH TREATMENT PLAN. GIVEN TIME TO ASK QUESTIONS AND EXPRESS CONCERNS., ISTOP REGISTRY REVIEWED AND DEMONSTRATES COMPLLIANCE. (REF # [id number] ) BRINGS IN MEDICATIONS WHICH IS APPROPRIATE FOR WHAT WAS DISPENSED. RECENT URINE TOXICOLOGY REVIEWED. NO UNAUTHORIZED MEDICATIONS. NO ILLICIT SUBSTANCES AND PRESCRIBED MEDICATIONS WERE PRESENT. PREVENTIVE MEDICINE PAIN CLINIC TEACHING: THE PATIENT HAS BEEN EDUCATED REGARDING PAIN, THE RISK FOR PAIN, THE IMPORTANCE OF EFFECTIVE PAIN MANAGEMENT, AND THE PAIN ASSESSMENT PROCESS. : REVIEWED AND DISCUSSED TREATMENT PLAN WITH PATIENT, DISCUSSED MEDICATION TREATMENT PLAN, PT ACKNOWLEDGED UNDERSTANING. NICO PROCEDURE CODES [id number] ESTABILISHED PATIENT [facility] CHARGE DISPOSITION & COMMUNICATION FOLLOW UP 2 MONTHS (REASON: LOW BACK PAIN) ELECTRONICALLY SIGNED BY JAKUB VILLEDA ON 10/25/2019 AT 09:56 AM EST DISCLAIMER : THIS IS A VISIT SUMMARY EXTRACTED FROM THE [employer] CHART. IT IS NOT A COPY OF THE [employer] PROGRESS NOTE. GELACIO
== END ==
LOC: M PAIN 11:00
PROVIDERS: ATTEND Family Medicine
DX: G43.709 Chronic migraine without aura, not intractable, without status migrainosus (principal); Z86.59 Personal history of other mental and behavioral disorders; J45.909 Unspecified asthma, uncomplicated; G47.30 Sleep apnea, unspecified; Z98.84 Bariatric surgery status; F17.210 Nicotine dependence, cigarettes, uncomplicated; Z88.5 Allergy status to narcotic agent; Z88.8 Allergy status to other drugs, medicaments and biological substances; Z91.040 Latex allergy status; Z79.891 Long term (current) use of opiate analgesic; Z79.899 Other long term (current) drug therapy

== ENCOUNTER → 2019-10-23 | Outpatient (CLI) | payer OTHER ==
--- NOTE | 2019-10-23 12:30 | REP ---
MRI BRAIN WITHOUT IV CONTRAST: HISTORY: Chronic migraine without aura. Increasing headache frequency and intensity. Comparison brain MRI study is from February 24, 2013. TECHNIQUE: Axial and sagittal imaging planes are utilized for T1- and T2-weighted scans. Sequences include spin-echo, fast spin echo, FLAIR, and diffusion weighted sequences. MRI FINDINGS: No bony calvarial lesion is seen. Craniocervical junction and upper cervical cord are unremarkable. There is no MR evidence of significant paranasal sinus change. No intraorbital abnormalities appreciated. On FLAIR images and T2-weighted scans, there are again noted to be several foci of subcortical and periventricular white matter hyperintensity. These are unchanged from the 2013 study. They are nonspecific and can be seen in demyelinating change, migraine syndromes, and small vessel atherosclerosis or vasculitis changes. They are unchanged in size and number. There is no evidence of intracranial hemorrhage. No mass, infarct, or midline shift is seen. No extra-axial fluid collection is seen. Diffusion-weighted scans show no evidence of restricted diffusion. IMPRESSION: No acute intracranial abnormality. Scattered nonspecific T2-hyperintensities in the supratentorial white matter, unchanged from the prior study in 2012. Electronically Signed by Moshe Carmona MD 10/23/2019 12:36 P
== END ==
LOC: M RAD 09:08
PROVIDERS: ATTEND Physician Assistant
DX: G43.909 Migraine, unspecified, not intractable, without status migrainosus (principal)

== ENCOUNTER → 2019-11-02 | Outpatient (CLI) | payer OTHER ==
--- NOTE | 2019-11-03 02:38 | REP ---
Clinical: Recurrent pneumonia. Technique: PA and lateral. Comparison: 07/14/2018. Findings: Mediastinum and cardiac silhouette are normal. Very mild irregular markings in the right base suggest chronic change. No obvious focal consolidation, effusion, or pneumothorax appreciated. Skeletal structures are intact. Impression: Suspected chronic interstitial changes primarily at the right base. No obvious acute process. If the patient remains symptomatic consider chest CT for further investigation. Electronically Signed by Pritesh Castellanos MD 11/03/2019 02:30 A
[2019-11-04 00:07] LABS: Lyme Disease IgG/IgM Antibodie <0.91 ISR (0.00-0.90); Lyme Disease IgM Ab Quantitati <0.80 index (0.00-0.79)
== END ==
LOC: M LAB 10:43
PROVIDERS: ATTEND Internal Medicine Infectious Disease
DX: J18.9 Pneumonia, unspecified organism (principal); R21 Rash and other nonspecific skin eruption

== ENCOUNTER → 2019-11-11 | Outpatient (REF) | payer OTHER ==
[2019-11-11 17:29] LABS: APPEARANCE, URINE HAZY (CLEAR); BACTERIA, URINE AUTO NEGATIVE (NEGATIVE); BILIRUBIN, URINE AUTO NEGATIVE (NEGATIVE); BLOOD, URINE BLOOD NEGATIVE (NEGATIVE); CALCIUM OXALATE CRYSTALS LARGE; COLOR, URINE YELLOW (YELLOW); GLUCOSE, URINE (UA) AUTO NEGATIVE (NEGATIVE); KETONE, URINE AUTO NEGATIVE (NEGATIVE); LEUKOCYTE ESTERASE, URINE AUTO NEGATIVE (NEGATIVE); MUCUS, URINE SMALL (NEGATIVE); NITRITE, URINE AUTO NEGATIVE (NEGATIVE); PROTEIN, URINE AUTO NEGATIVE (NEGATIVE); RBC, URINE AUTO 0 /HPF (0-3); SPECIFIC GRAVITY URINE AUTO 1.013 (1.002-1.035); SQUAMOUS EPITHELIAL CELL UR AU 0 /HPF (0-6); UROBILINOGEN, URINE AUTO 0.2 mg/dL (0.0-2.0); WBC, URINE AUTO 2 /HPF (0-3)
== END ==
LOC: M SFHCADAM 13:39
PROVIDERS: ATTEND Physician Assistant
DX: M54.5 Low back pain (principal)

== ENCOUNTER → 2019-11-17 | Outpatient (CLI) | payer OTHER ==
[2019-11-17 13:59] LABS: BASO # 0.1 10^3/uL (0.0-0.2); BASO % 0.8 % (0.0-1.0); EOS # 0.1 10^3/uL (0.0-0.5); EOS % 1.4 % (0.0-3.0); HEMATOCRIT 38.8 % (36.0-47.0); HEMOGLOBIN 12.4 g/dl (12.0-15.5); LYMPH # 2.1 10^3/uL (1.5-5.0); LYMPH % 33.6 % (24.0-44.0); MEAN CORPUSCULAR HEMOGLOBIN 28.6 pg (27.0-33.0); MEAN CORPUSCULAR VOLUME 89.6 fl (80.0-96.0); MONO # 0.5 10^3/uL (0.0-0.8); NEUTROPHILS # 3.5 10^3/uL (1.5-8.5); PLATELET COUNT, AUTOMATED 171 10^3/uL (150-450); RED BLOOD COUNT 4.33 10^6/uL (4.00-5.40); WHITE BLOOD COUNT 6.3 10^3/uL (4.0-10.0)
[2019-11-17 14:21] LABS: ALBUMIN 3.9 GM/DL (3.2-5.2); ALT/SGPT 23 U/L (12-78); BILIRUBIN,DIRECT 0.1 MG/DL (0.0-0.2); BILIRUBIN,TOTAL 0.5 MG/DL (0.2-1.0); BLOOD UREA NITROGEN 15 MG/DL (7-18); CALCIUM LEVEL 9.3 MG/DL (8.5-10.1); CARBON DIOXIDE LEVEL 25 MEQ/L (21-32); CHLORIDE LEVEL 106 MEQ/L (98-107); CREATININE FOR GFR 0.84 MG/DL (0.55-1.30); GLOMERULAR FILTRATION RATE > 60.0 (>60); GLUCOSE, FASTING 87 MG/DL (70-100); IMMUNOGLOBULIN G 1330 MG/DL (681-1648); POTASSIUM SERUM 3.6 MEQ/L (3.5-5.1); SODIUM LEVEL 138 MEQ/L (136-145); TOTAL PROTEIN 7.6 GM/DL (6.4-8.2)
== END ==
LOC: M LAB 12:55
PROVIDERS: ATTEND Allergy & Immunology Allergy
DX: D83.9 Common variable immunodeficiency, unspecified (principal)

== ENCOUNTER → 2019-12-14 | Outpatient (CLI) | payer OTHER ==
--- NOTE | 2019-12-14 13:51 | REP ---
REASON FOR EXAM: History of nephrolithiasis. COMPARISON: 10/08/2013 The right kidney measures 11.5 x 4.9 x 5.2 cm. The renal cortical echoes are within normal limits. There are no cystic or solid masses. There is mild hydronephrosis and mild proximal hydroureter. Left kidney measures 11.2 x 4.9 x 5.4 cm. The renal cortical echoes are within normal limits. There are no cystic or solid masses. There is no hydronephrosis. Imaging of the urinary bladder was obtained for the purpose of assessing for ureteral jet phenomena, which was seen bilaterally at the UV junction. IMPRESSION: Mild right-sided hydronephrosis and proximal hydroureter. No nephroliths or ureteroliths were identified. Electronically Signed by Didier Lomas DO 12/14/2019 02:45 P
== END ==
LOC: M RAD 09:34
PROVIDERS: ATTEND Physician Assistant
DX: N13.30 Unspecified hydronephrosis (principal); Z87.442 Personal history of urinary calculi

== ENCOUNTER → 2019-12-16 | Outpatient (REF) | payer OTHER ==
[2019-12-16 13:54] LABS: BASO # 0.1 10^3/uL (0.0-0.2); BASO % 0.9 % (0.0-1.0); EOS # 0.1 10^3/uL (0.0-0.5); HEMATOCRIT 40.3 % (36.0-47.0); HEMOGLOBIN 12.6 g/dl (12.0-15.5); LYMPH % 34.3 % (24.0-44.0); MEAN CORPUSCULAR HEMOGLOBIN 28.5 pg (27.0-33.0); MEAN CORPUSCULAR HGB CONC 31.3 g/dl (32.0-36.5); MEAN CORPUSCULAR VOLUME 91.2 fl (80.0-96.0); MONO # 0.3 10^3/uL (0.0-0.8); MONO % 5.2 % (0.0-5.0); NEUTROPHILS # 3.4 10^3/uL (1.5-8.5); NEUTROPHILS % 58.4 % (36.0-66.0); PLATELET COUNT, AUTOMATED 163 10^3/uL (150-450); RED BLOOD COUNT 4.42 10^6/uL (4.00-5.40); WHITE BLOOD COUNT 5.8 10^3/uL (4.0-10.0)
[2019-12-16 14:13] LABS: ALBUMIN 3.7 GM/DL (3.2-5.2); ALT/SGPT 24 U/L (12-78); BILIRUBIN,TOTAL 0.3 MG/DL (0.2-1.0); BLOOD UREA NITROGEN 10 MG/DL (7-18); CALCIUM LEVEL 9.5 MG/DL (8.5-10.1); CARBON DIOXIDE LEVEL 27 MEQ/L (21-32); CHLORIDE LEVEL 111 MEQ/L (98-107); GLOMERULAR FILTRATION RATE > 60.0 (>60); GLUCOSE, FASTING 87 MG/DL (70-100); POTASSIUM SERUM 4.4 MEQ/L (3.5-5.1); SODIUM LEVEL 141 MEQ/L (136-145); TOTAL PROTEIN 7.2 GM/DL (6.4-8.2)
[2019-12-17 08:06] LABS: HEPATITIS A IgG TOTAL Positive (Negative); HEPATITIS B CORE ANTIBODY IGG Negative (Negative)
[2019-12-17 09:17] LABS: HEPATITIS B SURFACE ANTIBODY POSITIVE (POSITIVE); HEPATITIS B SURFACE ANTIGEN NEGATIVE (NEGATIVE); HEPATITIS C VIRUS ABY INDEX < 0.0 INDEX (<0.8); HIV 1&2 SCREEN CENTAUR NEGATIVE (NEGATIVE)
== END ==
LOC: M SFHCADAM 10:46
PROVIDERS: ATTEND Physician Assistant
DX: R19.7 Diarrhea, unspecified (principal); R10.84 Generalized abdominal pain; J44.9 Chronic obstructive pulmonary disease, unspecified

== ENCOUNTER → 2019-12-21 | Outpatient (CLI) | payer OTHER ==
--- NOTE | 2019-12-23 03:53 | ECWPNPC ---
PATIENT NAME: ADELA ALMONTE : 1980 GENDER: FEMALE VISIT DATE: 12/21/2019 DISCHARGE DATE: 12/21/19 1221 VISIT LOCKED DATE TIME: PHYSICIAN: RAVEN CORDON RESOURCE: RAVEN CORDON REASON FOR APPOINTMENT 1. LOWER BACK PAIN HISTORY OF PRESENT ILLNESS HISTORY OF PRESENT ILLNESS: PAIN THE PATIENT DESCRIBES THE PAINDURING THE LAST MONTH SEVERITY - PAIN SCORE OF8/10 LOCATIONSHEAD, NECK, UPPER BACK, MID BACK, LOWER BACK, LEFT HIP, RIGHT LEG, LEFT LEG QUALITYACHING , BURNING, SHARP, STABBING, TENDER, SORE, SHOOTING, OTHER NUMBNESS AND TINGLING DURATION DAY 39-YEAR-OLD FEMALE IN FOR CHRONIC PAIN FOLLOW-UP. SHE RATES HER PAIN CURRENTLY AT AN 8 OUT OF 10 AND DESCRIBES IT ACHING, SHARP, BURNING, STABBING, SORE, SHOOTING, TENDER, AND NUMB AND TINGLING. SHE FEELS HER MEDICATIONS ARE WORKING WELL AND DENIES MED SIDE EFFECTS AT THIS TIME. SHE WOULD LIKE TO DISCUSS GETTING AN UPDATED CERVICAL AND LUMBAR MRI SHE IS EXPERIENCING INCREASED PAIN IN THESE AREAS. FALL RISK SCREENING: SCREENING :NO FALLS REPORTED IN THE LAST YEAR CURRENT MEDICATIONS TAKING PREGABALIN 200 MG CAPSULE (SCHEDULE V DRUG) TAKE ONE CAPSULE BY MOUTH THREE TIMES DAILY - MAXIMUM DAILY DOSE THREE ORAL TAKING VYVANSE 70 MG CAPSULE (SCHEDULE II DRUG) TAKE ONE CAPSULE BY MOUTH EVERY MORNING - MAXIMUM DAILY DOSE ONE CAPSULE ORAL TAKING TRULANCE 3 MG TABLET TAKE ONE TABLET BY MOUTH ONCE A DAY ORAL TAKING FLUCONAZOLE 150 MG TABLET TAKE ONE TABLET BY MOUTH NOW, TAKE ONE TABLET IN 72 HOURS IF NECESSARY ORAL TAKING TOPIRAMATE 50 MG TABLET TAKE ONE TABLET BY MOUTH TWICE DAILY BOTTLE ORAL TAKING AMOXICILLIN-POT CLAVULANATE 875-125 MG TABLET TAKE ONE TABLET BY MOUTH TWICE DAILY FOR 10 DAYS ORAL TAKING BELBUCA 150 MCG FILM (SCHEDULE III DRUG) APPLY ONE FILM TO THE GUM EVERY 12 HOURS - MAXIMUM DAILY DOSE TWO FILMS BUCCAL TAKING BUSPIRONE HCL 30 MG TABLET TAKE ONE TABLET BY MOUTH @6AM AND TAKE ONE TABLET BY MOUTH @8PM ORAL TAKING DICYCLOMINE HCL 20 MG TABLET TAKE ONE TABLET BY MOUTH @6AM AND TAKE ONE TABLET @NOON AND TAKE ONE TABLET @8PM ( NEEDED FOR PAIN) ORAL TAKING FIBER LAXATIVE 0.52 GM CAPSULE TAKE TWO CAPSULES BY MOUTH @6AM AND TAKE TWO CAPSULES @8PM ORAL TAKING NIFEDIPINE 20 MG CAPSULE TAKE ONE CAPSULE BY MOUTH @6AM ORAL TAKING PANTOPRAZOLE SODIUM 40 MG TABLET DELAYED RELEASE TAKE ONE TABLET BY MOUTH @6AM ORAL TAKING LOSARTAN POTASSIUM 25 MG TABLET TAKE ONE TABLET BY MOUTH @6AM ORAL TAKING MOVANTIK 25 MG TABLET TAKE ONE TABLET BY MOUTH @6AM ORAL TAKING FUROSEMIDE 20 MG TABLET TAKE ONE TABLET BY MOUTH @6AM ORAL TAKING PROMETHAZINE HCL 25 MG TABLET TAKE ONE TABLET BY MOUTH @6AM AND TAKE ONE TABLET BY MOUTH @NOON AND TAKE ONE TABLET BY MOUTH @6PM AND TAKE ONE TABLET BY MOUTH @8PM ORAL TAKING PRAZOSIN HCL 1 MG CAPSULE TAKE ONE CAPSULE BY MOUTH @8PM ORAL TAKING ESTRADIOL 0.025 MG/24HR PATCH WEEKLY APPLY ONE PATCH TOPICALLY ONCE PER WEEK TRANSDERMAL TAKING CETIRIZINE HCL 10 MG TABLET TAKE ONE TABLET BY MOUTH @6AM ( NEEDED) ORAL TAKING NYSTATIN 448662 UNIT/ML SUSPENSION TAKE 4ML BY MOUTH FOUR TIMES DAILY FOR 10 DAYS MOUTH/THROAT TAKING AIMOVIG 70 MG/ML SOLUTION AUTO-INJECTOR USE ONCE PER MONTH SUBCUTANEOUS TAKING VRAYLAR 3 MG CAPSULE TAKE ONE CAPSULE BY MOUTH AT BEDTIME ORAL TAKING LIDOCAINE HCL 3 % CREAM APPLY TO ABDOMEN 30 MINUTES PRIOR TO INFUSION EXTERNAL TAKING FAMOTIDINE 40 MG TABLET TAKE ONE TABLET BY MOUTH @8PM ORAL TAKING DOXYCYCLINE MONOHYDRATE 100 MG CAPSULE TAKE ONE CAPSULE BY MOUTH EVERY TWELVE HOURS FOR 21 DAYS ORAL MEDICATION LIST REVIEWED AND RECONCILED WITH THE PATIENT PAST MEDICAL HISTORY SURGICAL MENOPAUSE S/P ELIA & BSO 2009 CHRONIC NECK/MID/LOW BACK PAIN PEPTIC ULCER DISEASE, S/P GASTRIC BYPASS - ON PROTONIX AND CARAFATE BY DR. MILLER BIPOLAR, ANXIETY, DEPRESSION - FOLLWS WITH DR. OTERO ALCOHOLISM MIGRAINE HEADACHES TOBACCO USE ADD CHRONIC RHINITIS/SINUSITIS RAYNAUD'S SYNDROME COMMON VARIABLE IMMUNO DEFICIENCY DISEASE ASTHMA HEART MURMUR - ECHO 10/2017 BORDERLINE LVH, MILD LAE, SUBTLE AV SCLEROSIS, AORTIC SCLEROSIS, MILD AR, MILD MR SLEEP APNEA WITH BIPAP S/P GASTRIC BYPASS FAINTING SPELLS CHRONIC PNEUMONIA ALLERGIES N.K.D.A. SURGICAL HISTORY LUMBAR LAMINECTOMY [place] 02/11 BACK SURGERY 1997 LAPAROTOMY X 4...CARTHAGE....DR. CRISTOBAL CHOLECYSTECTOMY 07/13 HYSTERECTOMY, APPENDECTOMY - FOR ENDOMETRIOSIS 12/13 GASTRIC BYPASS (DR. CARTAGENA, [facility]) 01/2012 LAPAROSCOPY AND REMOVAL OF ADHESIONS (DR. BARRERA) 12/2012 CHEST TUBE ENDOSCOPY/COLONOSCOPY BLOOD TRANSFUSION BLADDER REPAIR 10/2016 LAPROSCOPC SURGERY FOR ENDOMETRIOSIS / LYSIS OF ADHESIONS AND SCAR TISSUE (BOWEL NICKED IN OR). 12/19/17 EGD - ESOPHAGEAL PLAQUE - BIOPSY RESULTS NOT SENT TO US (DR. MILLER) 05/2018 REMOVAL CYSTS IN BILATERAL EARS REMOVAL OF NEEDLE FROM RIGHT FOOT FAMILY HISTORY FATHER: ALIVE, DIAGNOSED WITH OTHER MALIGNANT NEOPLASM OF UNSPECIFIED SITE, UNSPECIFIED CEREBRAL ARTERY OCCLUSION WITH CEREBRAL INFARCTION MOTHER: ALIVE, UNSPECIFIED HEART DISEASE, DIABETES, HYPERTENSION FATHER SKIN CANCER\\\\\\\\NSISTER WITH HOSHIMOTO\\\\\\\\\\\\\\'S. DENIES FAMILY HX OF PANCREATIC CANCER, GRANDMOTHER AND FATHER HAD MELANOMA. SOCIAL HISTORY GENERAL: TOBACCO USE ARE YOU A:CURRENT SMOKER HOW OFTEN DO YOU SMOKE CIGARETTES?EVERY DAY HOW SOON AFTER YOU WAKE UP DO YOU SMOKE YOUR FIRST CIGARETTE?AFTER 60 MIN HOW MANY CIGARETTES A DAY DO YOU SMOKE?11-20 ARE YOU INTERESTED IN QUITTING?READY TO QUIT WAITING FOR PRESCRIPTION FOR CHANTIX. PATIENT COUNSELED ON THE DANGERS OF TOBACCO USE AND URGED TO QUIT:11/01/2019 COUNSELED THE PATIENT ON TOBACCO USE, CESSATION [id number] HIV / HEP-C SCREENING HIV TEST OFFERED TO PATIENT:YES DATE OFFERED:03/13/2017 TEST ACCEPTED:NO HEP-C TEST OFFERED TO PATIENT:NO REASON:PATIENT DECLINED EDUCATION LEVEL OF EDUCATION:NOT FINISHED COLLEGE DIET: REGULAR. LANGUAGE LANGUAGES SPOKEN:KHMER DOMESTIC VIOLENCE DO YOU FEEL SAFE IN YOUR ENVIRONMENT?YES BMI CARE GOAL FOLLOW-UP ABOVE NORMAL BMI FOLLOW-UPDIETARY MANAGEMENT EDUCATION, GUIDANCE, AND COUNSELING, DIETARY NEEDS EDUCATION, EXERCISE PROMOTION: STRENGTH TRAINING RECREATIONAL DRUG USE DRUG USE?NO EXERCISE: NO REGULAR EXERCISE. LEARNING BARRIERS / SPECIAL NEEDS CHANGE FROM LAST VISIT?NO 10/07/19 BARRIERS TO LEARNING?NO HEARING IMPAIRED?YES VISION IMPAIRED?YES COGNITIVELY IMPAIRED?NO :CORRECTIVE LENSES READINESS TO LEARN?YES LEARNING PREFERENCES?NO LEARNING CAPABILITIES PRESENT?YES EMOTIONAL BARRIERS?NO SPECIAL DEVICES?NO PHLEBOTOMIST NEEDED?NO LUNG CANCER SCREENING SMOKING STATUS:CURRENT SMOKER PAIN CLINIC PFS, CLERGY, PUBLIC HEALTH REFERRALS PFS REFERRAL NEEDED?NO CLERGY REFERRAL NEEDED?NO PUBLIC HEALTH REFERRAL NEEDED?NO WAS THE PROVIDER NOTIFIED OF ANY PERTINENT INFO?YES N/A HAS THE PATIENT BEEN EDUCATED REGARDING HIS/HER PLAN OF CARE?YES HAS THE PATIENT BEEN EDUCATED REGARDING PAIN, THE RISK FOR PAIN, THE IMPORTANCE OF EFFECTIVE PAIN MANAGEMENT, AND THE PAIN ASSESSMENT PROCESS?YES LATEX QUESTIONNAIRE LATEX ALLERGY : HAVE YOU EVER DEVELOPED ANY TYPE OF REACTION AFTER HANDLING LATEX PRODUCTS SUCH RUBBER GLOVES, CONDOMS, DIAPHRAGMS, BALLOONS, SOCKS, OR UNDERWEAR?YES LATEX ALLERGY : HAVE YOU EVER DEVELOPED ANY TYPE OF REACTION DURING OR AFTER DENTAL APPOINTMENT, VAGINAL/RECTAL EXAMINATION, SURGICAL PROCEDURE, OR ANY OTHER EXPOSURE?YES - PLEASE INDICATE :RUBBER GLOVES, CONDOMS, UNDERWEAR, OTHER (DOCUMENT IN NOTES) BRAS - PLEASE INDICATE :VAGINAL EXAM DATE ASKED : 10/22/2019 LATEX RISK : HAVE YOU EVER HAD ANY DIFFICULTY BREATHING OR HIVES AFTER EATING OR HANDLING ANY FRUITS, OR VEGETABLES; SUCH KIWI, BANANAS, STONE FRUITS, OR CHESTNUTSNO LATEX RISK : DO YOU HAVE A PREVIOUS PERSONAL HISTORY OF MORE THAN NINE SURGERIES, SPINA BIFIDA, OR REPEATED CATHERIZATIONS? YES - PLEASE INDICATE : > 9 SURGERIES LATEX RISK : ARE YOU FREQUENTLY EXPOSED TO LATEX PRODUCTS IN YOUR OCCUPATION?NO CAFFEINE CAFFEINE USE?YES 2-3 CUPS COFFEE & ICED TEA THROUGH THE DAY. ADVANCE DIRECTIVE ADVANCE DIRECTIVE DISCUSSED WITH PATIENT:YES PT DOES NOT HAVE ANY ADVANCED DIREDCTIVES AND SHE DECLINES INFORMATION ON HCP AT THIS TIME. CHURCH [id number] BAPTISM MARITAL STATUS: SINGLE. ALCOHOL SCREENING DID YOU HAVE A DRINK CONTAINING ALCOHOL IN THE PAST YEAR?YES HOW OFTEN DID YOU HAVE SIX OR MORE DRINKS ON ONE OCCASION IN THE PAST YEAR?NEVER (0 POINTS) HOW MANY DRINKS DID YOU HAVE ON A TYPICAL DAY WHEN YOU WERE DRINKING IN THE PAST YEAR?1 OR 2 (0 POINTS) HOW OFTEN DID YOU HAVE A DRINK CONTAINING ALCOHOL IN THE PAST YEAR?TWO TO THREE TIMES PER WEEK (3 POINTS) POINTS3 INTERPRETATIONPOSITIVE OCCUPATION: UNEMPLOYED. SEXUAL HX HAD SEX IN THE LAST 12 MONTHS (VAGINAL, ORAL, OR ANAL)?NO LMP:2009 HAVE YOU EVER HAD AN STD?NO REVIEWED WITH PT 06/23/18 1154 BVREVIEWED WITH PATIENT 07/07/18 1158 11/05/18 REVIEWED WITH PT. AD12/07/18 REVIEWED WITH PT. AD04/16/19 REVIEWED WITH PT 1204 LASREVIEWED WITH PATIENT 05/25/19 1055 NLJREVIEWED WITH PATIENT 05/25/19 NLJREVIEWED WITH PT 05/03/19 0945 BVPRE-SCREENING COMPLETED 09/15/19 1444 [id number] REVIEWED WITH PATIENT DS. HOSPITALIZATION/MAJOR DIAGNOSTIC PROCEDURE NO HOSPITALIZATION HISTORY. REVIEW OF SYSTEMS REVIEWED BY: PROVIDER: ENRIQUETA KNUTSON . CONSTITUTIONAL: ANY CHANGE IN YOUR MEDICAL CONDITION? NO . CHILLS NO . FEVER NO . INFECTION: DO YOU HAVE NEW INFECTIONS? NO . DO YOU HAVE HISTORY OF MRSA? YES . MUSCULOSKELETAL: ANY NEW PATTERNS OF PAIN OR NUMBNESS? YES, PAIN AND NUMBNESS GOTTEN WORSE . GASTROENTEROLOGY: ANY NEW CHANGE IN BOWEL CONTROL? NO . GENITOURINARY: ANY NEW CHANGE IN BLADDER CONTROL? NO . IS THERE A CHANCE YOU COULD BE ? NO . HEMATOLOGY/LYMPH: DO YOU TAKE ANY BLOOD THINNERS? (FOR EXAMPLE- COUMADIN, PLAVIX, AGGRENOX, PLATEL, PRADAXA, OR XARELTO) NO . WHEN WAS YOUR LAST DOSE? DATE: TIME: . NEUROLOGY: HAVE YOU FALLEN IN THE PAST 12 MONTHS? NO . ANY NEW EXTREMITY NUMBNESS OR WEAKNESS? NO . CARDIOLOGY: DO YOU HAVE A PACEMAKER OR DEFIBRILLATOR? NO . RESPIRATORY: HAVE YOU BEEN SICK IN THE PAST WEEK? NO . FEVER NO . FLU LIKE SYMPTOMS? NO . COUGH NO . INTEGUMENTARY: DO YOU HAVE ANY RASHES OR OPEN SORES? NO . ALLERGIC/IMMUNO: ARE YOU ALLERGIC TO IV DYE? NO . ANY NEW ALLERGIES? NO . PSYCHIATRIC: DO YOU HAVE THOUGHTS OF HURTING YOURSELF OR SOMEONE ELSE? NO . ARE YOU ABUSED, NEGLECTED, OR IN AN UNSAFE ENVIRONMENT? NO . ENDOCRINOLOGY: ARE YOU DIABETIC? NO . OTHER: DO YOU NEED ANY PRESCRIPTIONS? YES, BELBUCA AND LYRICA . IF YES, PLEASE LIST: ____ . ANY NEW PROBLEMS WITH YOUR MEDICATIONS? NO . WHEN DID YOU LAST EAT? ____ . WHEN DID YOU LAST DRINK? ____ . WHAT DID YOU LAST DRINK? ____ . NAME OF PERSON DRIVING YOU HOME? ____ . DO YOU HAVE ANY OTHER QUESTIONS OR CONCERNS YES, I WOULD LIKE TO DISCUSS GETTING INJECTIONS IN NECK, UPPER BACK, LOWER BACK AND SIJ INJECTIONS . VITAL SIGNS WT 207 LBS, HT 67", BMI 32.42 INDEX, BP 131/76 MM HG, HR 102 /MIN, RR 18 /MIN, TEMP 96.6 F, OXYGEN SAT % 98, SAFE IN ENV? (Y/N) YES, REVIEWED BY: TEMITOPE BERNSTEIN LPN. EXAMINATION GENERAL EXAMINATION: GENERALNO ACUTE DISTRESS, WELL NOURISHED AND HYDRATED. PSYCHAPPROPRIATE MOOD AND AFFECT . LUNGS:CLEAR TO AUSCULTATION BILATERALLY, NO WHEEZES, RHONCHI, RALES. HEART:NO MURMURS, REGULAR RATE AND RHYTHM. ASSESSMENTS INTERVERTEBRAL DISC DISORDERS WITH RADICULOPATHY, LUMBOSACRAL REGION - M51.17 (PRIMARY) CERVICALGIA - M54.2 SACROILIITIS, NOT ELSEWHERE CLASSIFIED - M46.1 TREATMENT INTERVERTEBRAL DISC DISORDERS WITH RADICULOPATHY, LUMBOSACRAL REGION [facility] MRI LS SPINE W/O AND WITH [id number] NOTES: BILATERAL SIJ NOTED REGARDING PROCEDURE GIVEN TO PATIENT. AUGUST KNUTSON. CLINICAL NOTES: 39-YEAR-OLD FEMALE IN FOR CHRONIC PAIN FOLLOW-UP. GIVEN PRESENTING SYMPTOMS AND RESULTS OF PHYSICAL EXAMINATION RECOMMENDED BILATERAL SIJ, CONTINUATION OF CURRENT MEDICATION REGIMEN, AND GETTING UPDATED MRI FOR FURTHER EVALUATION. PATIENT HAS EXPRESSED UNDERSTANDING OF AND WAS IN AGREEMENT WITH TREATMENT PLAN. GIVEN TIME TO ASK QUESTIONS AND EXPRESS CONCERNS., ISTOP REGISTRY REVIEWED AND DEMONSTRATES COMPLLIANCE. (REF # [id number] ) BRINGS IN MEDICATIONS WHICH IS APPROPRIATE FOR WHAT WAS DISPENSED. RECENT URINE TOXICOLOGY REVIEWED. NO UNAUTHORIZED MEDICATIONS. NO ILLICIT SUBSTANCES AND PRESCRIBED MEDICATIONS WERE PRESENT. CERVICALGIA [facility] MRI SPINE, CERVICAL WITHOUT [id number] DISPOSITION & COMMUNICATION FOLLOW UP POSTPROCEDURE (REASON: BILATERAL SIJ) ELECTRONICALLY SIGNED BY JAKUB VILLEDA ON 12/22/2019 AT 01:04 PM EDT DISCLAIMER : THIS IS A VISIT SUMMARY EXTRACTED FROM THE [employer] CHART. IT IS NOT A COPY OF THE [employer] PROGRESS NOTE. GELACIO
== END ==
LOC: M PAIN 11:00
PROVIDERS: ATTEND Family Medicine
DX: M51.17 Intervertebral disc disorders with radiculopathy, lumbosacral region (principal); M54.2 Cervicalgia; M46.1 Sacroiliitis, not elsewhere classified; F17.210 Nicotine dependence, cigarettes, uncomplicated; Z79.899 Other long term (current) drug therapy

== ENCOUNTER → 2019-12-23 | Outpatient (REF) | payer OTHER ==
[2019-12-23 18:48] LABS: APPEARANCE, URINE HAZY (CLEAR); BACTERIA, URINE AUTO NEGATIVE (NEGATIVE); BILIRUBIN, URINE AUTO NEGATIVE (NEGATIVE); BLOOD, URINE BLOOD NEGATIVE (NEGATIVE); CALCIUM OXALATE CRYSTALS LARGE; COLOR, URINE YELLOW (YELLOW); GLUCOSE, URINE (UA) AUTO NEGATIVE (NEGATIVE); KETONE, URINE AUTO NEGATIVE (NEGATIVE); LEUKOCYTE ESTERASE, URINE AUTO NEGATIVE (NEGATIVE); MUCUS, URINE SMALL (NEGATIVE); NITRITE, URINE AUTO NEGATIVE (NEGATIVE); PROTEIN, URINE AUTO 1+ mg/dL (NEGATIVE); RBC, URINE AUTO 0 /HPF (0-3); SPECIFIC GRAVITY URINE AUTO 1.014 (1.002-1.035); SQUAMOUS EPITHELIAL CELL UR AU 1 /HPF (0-6); UROBILINOGEN, URINE AUTO 0.2 mg/dL (0.0-2.0); WBC, URINE AUTO 3 /HPF (0-3)
== END ==
LOC: M SMT 16:55
PROVIDERS: ATTEND Urology
DX: R10.9 Unspecified abdominal pain (principal); N13.30 Unspecified hydronephrosis

== ENCOUNTER → 2019-12-23 | Outpatient (CLI) | payer OTHER ==
--- NOTE | 2019-12-23 16:34 | REP ---
KUB: Two views. History: Right flank pain. Hydronephrosis. Comparison study: January 09, 2017. Findings: There are surgical clips in the right lower quadrant and clips and sutures are noted in the left abdomen. These are unchanged. Air and stool is seen in a nondistended colon. Flank stripes and psoas margins are intact. No mass or organomegaly is seen. Impression: Surgical clips and sutures. Normal bowel gas pattern. No urinary tract calculus is appreciated. Electronically Signed by Moshe Carmona MD 12/24/2019 08:41 A
== END ==
LOC: M RAD 15:12
DX: R10.9 Unspecified abdominal pain (principal)

== ENCOUNTER → 2019-12-31 | Outpatient (CLI) | payer OTHER ==
--- NOTE | 2019-12-31 13:10 | REP ---
CT ABDOMEN AND PELVIS WITHOUT CONTRAST: CT abdomen and pelvis is performed without the use of intravenous or oral contrast. Sagittal and coronal reconstruction images are performed. There is mild fibroatelectatic change inferiorly in the visualized right lung base. The liver is grossly unremarkable. The patient has had a prior cholecystectomy. The patient has also had prior gastric surgery. Spleen is normal in size. Adrenal glands are normal. Pancreas is grossly unremarkable. There is a punctate calcification in the collecting system of the right kidney inferiorly. No other renal, ureteral, or bladder calculus is seen. There is no hydroureteronephrosis. There is mild atherosclerotic calcification of the abdominal aorta without aneurysm. There is no adenopathy. There is no free air or free fluid. There is no bowel wall thickening. There is a small umbilical hernia containing fat. In the anterior abdominal wall there is ill-defined edema in the subcutaneous soft tissues with mild air in the soft tissues as well. This is likely from subcutaneous medication injection. In the pelvis there is no evidence of a mass. The patient appears to have a had a hysterectomy. The bladder is unremarkable. There are degenerative changes of the spine particularly at L4-5 disc level. IMPRESSION: There is a punctate calcification in the lower pole of the right renal collecting system. No other renal, ureteral, or bladder calculus and no hydroureteronephrosis. Small umbilical hernia containing fat. At that level of the anterior abdominal wall there is subcutaneous soft tissue edema bilaterally with small amount of air also seen in the soft tissues. This is likely due to medication injection in this region. Electronically Signed by Chava Mendes MD 12/31/2019 03:55 P
== END ==
LOC: M RAD 09:59
PROVIDERS: ATTEND Urology
DX: R10.9 Unspecified abdominal pain (principal); N13.30 Unspecified hydronephrosis; K42.9 Umbilical hernia without obstruction or gangrene; N20.0 Calculus of kidney

== ENCOUNTER → 2020-01-10 | Outpatient (CLI) | payer OTHER ==
--- NOTE | 2020-01-11 08:39 | REP ---
MRI CERVICAL SPINE WITHOUT CONTRAST: HISTORY: Neck pain. Comparison cervical spine MRI study is from September 04, 2016. TECHNIQUE: Sagittal and axial T1 and T2-weighted scans are acquired in the usual fashion with and without fat saturation. Sequences include spin echo, turbo spin-echo, and STIR imaging sequences. MRI FINDINGS: There is slight straightening of the normal cervical lordosis. Cervical vertebral body heights are preserved. Alignment is otherwise normal. The previously noted right paracentral focal disc protrusion at C5-6 is again seen. This subtly indents the ventral margin of the cord. It may be slightly larger. There is some narrowing of the a C5-6 disc. Neural foramina are patent. There is mild ligamentum flavum hypertrophy visible which indents the thecal sac from a dorsal lateral aspect bilaterally at C5-6. AP dimension of the thecal sac in the midline is 8 mm. 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 The ligamentum flavum changes are new. There is also a bilateral dorsal lateral ligamentum flavum hypertrophy at C6-7 which indents the thecal sac here. No cord compression No other cervical disc protrusion is visible. There is minimal disc bulging at C4-5 which is unchanged. Cervical cord is normal in coarse, caliber and signal intensity. Craniocervical junction is unremarkable. No extra spinal abnormality. IMPRESSION: Mild central canal stenosis at C5-6. Previously noted right central disc protrusion at C5-6 is slightly larger and there is some ligamentum flavum hypertrophy. Mild ligamentum flavum hypertrophy is present at C6-7 as well. Slight straightening. Otherwise negative. Electronically Signed by Moshe Carmona MD 01/11/2020 10:37 A
== END ==
LOC: M RAD 15:32
PROVIDERS: ATTEND Family Medicine
DX: M48.02 Spinal stenosis, cervical region (principal)

== ENCOUNTER → 2020-01-13 | Outpatient (CLI) | payer OTHER ==
[~2020-01-13] MED LIST changes: +CYCL-707 PO; -CYCL10TA PO; +VITA-243 PO; -VITA500T PO
--- NOTE | 2020-01-23 23:18 | ECWPNPC ---
PATIENT NAME: ADELA ALMONTE : 1980 GENDER: FEMALE VISIT DATE: 01/13/2020 DISCHARGE DATE: 01/13/20 0849 VISIT LOCKED DATE TIME: PHYSICIAN: HARRISON ZEPEDA MD RESOURCE: HARRISON ZEPEDA MD REASON FOR APPOINTMENT 1. BACK PAIN HISTORY OF PRESENT ILLNESS HISTORY OF PRESENT ILLNESS: PAIN THE PATIENT DESCRIBES THE PAIN... PERMISSION FROM PATIENT WAS RECEIVED TO DO TELEMEDICINE OFFICE VISIT VIA ZOOM. 39-YEAR-OLD FEMALE PATIENT WITH A HISTORY OF CHRONIC LOW BACK PAIN. THE PATIENT DESCRIBES THE PAIN ACHING, CONSTANT, SHARP, STABBING, TENDER, THROBBING, SORE AND SHOOT WITH A PAIN SCORE RANGING FROM 6-9/10 DEPENDING ON PHYSICAL ACTIVITY. THE PATIENT IS CURRENTLY TAKING BELBUCA; HOWEVER STATES SHE NEED SOMETHING MORE FOR SPASMS AND SLEEP. THE PATIENT DENIES ILLEGAL DRUG USE OR SUBSTANCE ABUSE. THE PATIENT STATES THAT SHE IS IN CONTROL OF HER MEDICATION. PATIENT DENIES UNEXPLAINABLE WEIGHT LOSS, FEVER, CHILLS, NEW CHANGES ON HER URINARY OR BOWEL CONTROL. FALL RISK SCREENING: SCREENING :NO FALLS REPORTED IN THE LAST YEAR CURRENT MEDICATIONS TAKING VYVANSE 70 MG CAPSULE (SCHEDULE II DRUG) TAKE ONE CAPSULE BY MOUTH EVERY MORNING - MAXIMUM DAILY DOSE ONE CAPSULE ORAL TAKING TRULANCE 3 MG TABLET TAKE ONE TABLET BY MOUTH ONCE A DAY ORAL TAKING FLUCONAZOLE 150 MG TABLET TAKE ONE TABLET BY MOUTH NOW, TAKE ONE TABLET IN 72 HOURS IF NECESSARY ORAL TAKING TOPIRAMATE 50 MG TABLET TAKE ONE TABLET BY MOUTH TWICE DAILY BOTTLE ORAL TAKING BUSPIRONE HCL 30 MG TABLET TAKE ONE TABLET BY MOUTH @6AM AND TAKE ONE TABLET BY MOUTH @8PM ORAL TAKING DICYCLOMINE HCL 20 MG TABLET TAKE ONE TABLET BY MOUTH @6AM AND TAKE ONE TABLET @NOON AND TAKE ONE TABLET @8PM ( NEEDED FOR PAIN) ORAL TAKING FIBER LAXATIVE 0.52 GM CAPSULE TAKE TWO CAPSULES BY MOUTH @6AM AND TAKE TWO CAPSULES @8PM ORAL TAKING NIFEDIPINE 20 MG CAPSULE TAKE ONE CAPSULE BY MOUTH @6AM ORAL TAKING PANTOPRAZOLE SODIUM 40 MG TABLET DELAYED RELEASE TAKE ONE TABLET BY MOUTH @6AM ORAL TAKING LOSARTAN POTASSIUM 25 MG TABLET TAKE ONE TABLET BY MOUTH @6AM ORAL TAKING MOVANTIK 25 MG TABLET TAKE ONE TABLET BY MOUTH @6AM ORAL TAKING FUROSEMIDE 20 MG TABLET TAKE ONE TABLET BY MOUTH @6AM ORAL TAKING PROMETHAZINE HCL 25 MG TABLET TAKE ONE TABLET BY MOUTH @6AM AND TAKE ONE TABLET BY MOUTH @NOON AND TAKE ONE TABLET BY MOUTH @6PM AND TAKE ONE TABLET BY MOUTH @8PM ORAL TAKING PRAZOSIN HCL 1 MG CAPSULE TAKE ONE CAPSULE BY MOUTH @8PM ORAL TAKING ESTRADIOL 0.025 MG/24HR PATCH WEEKLY APPLY ONE PATCH TOPICALLY ONCE PER WEEK TRANSDERMAL TAKING CETIRIZINE HCL 10 MG TABLET TAKE ONE TABLET BY MOUTH @6AM ( NEEDED) ORAL TAKING AIMOVIG 70 MG/ML SOLUTION AUTO-INJECTOR USE ONCE PER MONTH SUBCUTANEOUS TAKING VRAYLAR 4.5 MG CAPSULE TAKE ONE CAPSULE BY MOUTH AT BEDTIME ORALLY TAKING LIDOCAINE HCL 3 % CREAM APPLY TO ABDOMEN 30 MINUTES PRIOR TO INFUSION EXTERNAL TAKING FAMOTIDINE 40 MG TABLET TAKE ONE TABLET BY MOUTH @8PM ORAL TAKING IMITREX TAKING ALBUTEROL SULFATE (2.5 MG/3ML) 0.083% NEBULIZATION SOLUTION 3 ML NEEDED INHALATION EVERY 8 HRS TAKING CUVITRU 4 GM/20ML SOLUTION DIRECTED SUBCUTANEOUS TAKING CAMPRAL DOSE THOR 333 MG TABLET DELAYED RELEASE 2 TABLETS ORALLY THREE TIMES A DAY TAKING BOTOX 100 UNIT SOLUTION RECONSTITUTED DIRECTED INTRAMUSCULAR TAKING PHENAZOPYRIDINE HCL 100 MG TABLET 1 TABLET AFTER MEALS ORALLY THREE TIMES DAILY NEEDED TAKING PREGABALIN 200 MG CAPSULE 1 CAPSULE ORAL THREE TIMES DAILY TAKING BELBUCA 150 MCG FILM (SCHEDULE III DRUG) APPLY ONE FILM TO THE GUM EVERY 12 HOURS - MAXIMUM DAILY DOSE TWO FILMS BUCCAL EVERY 12 HRS TAKING ACETAMINOPHEN 500 MG CAPSULE 1 CAPSULES NEEDED ORALLY EVERY 6 HRS PRN TAKING IBUPROFEN 800 MG TABLET 1 TABLET WITH FOOD OR MILK NEEDED ORALLY THREE TIMES A DAY NEEDED FOR SEVERE HEADACHES TAKING CHANTIX 1 MG 1 TAB ORALLY BID TAKING VENTOLIN HFA 90 MCG/ACT AEROSOL SOLUTION 1 PUFF NEEDED INHALATION EVERY 4 HRS TAKING AMMONIUM LACTATE 10 % LOTION 1 APPLICATION TO AFFECTED AREA EXTERNALLY TWICE A DAY, NOTES: HAS NOT USED IN A WHILE TAKING FLUTICASONE PROPIONATE 50 MCG/ACT SUSPENSION 1 SPRAY IN EACH NOSTRIL NASALLY ONCE A DAY MEDICATION LIST REVIEWED AND RECONCILED WITH THE PATIENT PAST MEDICAL HISTORY SURGICAL MENOPAUSE S/P ELIA & BSO 2009 CHRONIC NECK/MID/LOW BACK PAIN PEPTIC ULCER DISEASE, S/P GASTRIC BYPASS - ON PROTONIX AND CARAFATE BY DR. MILLER BIPOLAR, ANXIETY, DEPRESSION - FOLLWS WITH DR. OTERO ALCOHOLISM MIGRAINE HEADACHES TOBACCO USE ADD CHRONIC RHINITIS/SINUSITIS RAYNAUD''S SYNDROME COMMON VARIABLE IMMUNO DEFICIENCY DISEASE ASTHMA HEART MURMUR - ECHO 10/2017 BORDERLINE LVH, MILD LAE, SUBTLE AV SCLEROSIS, AORTIC SCLEROSIS, MILD AR, MILD MR SLEEP APNEA WITH BIPAP S/P GASTRIC BYPASS FAINTING SPELLS CHRONIC PNEUMONIA KIDNEY STONES DRUG ABUSE IN REMISSION ALLERGIES MORPHINE SULFATE: TACHYCARDIA DILAUDID: TACHYCARDIA REGLAN: HIVES LAMICTAL: WELTS LATEX GLOVES SURGICAL HISTORY LUMBAR LAMINECTOMY [place] 02/11 BACK SURGERY 1997 LAPAROTOMY X 4...CARTHAGE....DR. CRISTOBAL CHOLECYSTECTOMY 07/13 HYSTERECTOMY, APPENDECTOMY - FOR ENDOMETRIOSIS 12/13 GASTRIC BYPASS (DR. CARTAGENA, [facility]) 01/2012 LAPAROSCOPY AND REMOVAL OF ADHESIONS (DR. BARRERA) 12/2012 CHEST TUBE ENDOSCOPY/COLONOSCOPY BLOOD TRANSFUSION BLADDER REPAIR 10/2016 LAPROSCOPC SURGERY FOR ENDOMETRIOSIS / LYSIS OF ADHESIONS AND SCAR TISSUE (BOWEL NICKED IN OR). 12/19/17 EGD - ESOPHAGEAL PLAQUE - BIOPSY RESULTS NOT SENT TO US (DR. MILLER) 05/2018 REMOVAL CYSTS IN BILATERAL EARS REMOVAL OF NEEDLE FROM RIGHT FOOT FAMILY HISTORY FATHER: ALIVE, DIAGNOSED WITH UNSPECIFIED CEREBRAL ARTERY OCCLUSION WITH CEREBRAL INFARCTION, OTHER MALIGNANT NEOPLASM OF UNSPECIFIED SITE MOTHER: ALIVE, DIABETES, HYPERTENSION, UNSPECIFIED HEART DISEASE SIBLINGS: ALIVE 1 SISTER(S) . FATHER SKIN CANCER\\\\NSISTER WITH HOSHIMOTO\\\\\\\'S. DENIES FAMILY HX OF PANCREATIC CANCER, GRANDMOTHER AND FATHER HAD MELANOMA. SOCIAL HISTORY GENERAL: TOBACCO USE ARE YOU A:CURRENT SMOKER ARE YOU INTERESTED IN QUITTING?READY TO QUIT WAITING FOR PRESCRIPTION FOR CHANTIX. COUNSELED THE PATIENT ON TOBACCO USE, CESSATION [id number]/09/2020 HOW MANY CIGARETTES A DAY DO YOU SMOKE?11-20 HOW SOON AFTER YOU WAKE UP DO YOU SMOKE YOUR FIRST CIGARETTE?AFTER 60 MIN HOW OFTEN DO YOU SMOKE CIGARETTES?EVERY DAY PATIENT COUNSELED ON THE DANGERS OF TOBACCO USE AND URGED TO QUIT:12/21/2019 SMOKING CESSATION INFORMATION GIVEN12/21/2019 LATEX QUESTIONNAIRE LATEX ALLERGY : HAVE YOU EVER DEVELOPED ANY TYPE OF REACTION AFTER HANDLING LATEX PRODUCTS SUCH RUBBER GLOVES, CONDOMS, DIAPHRAGMS, BALLOONS, SOCKS, OR UNDERWEAR?YES LATEX ALLERGY : HAVE YOU EVER DEVELOPED ANY TYPE OF REACTION DURING OR AFTER DENTAL APPOINTMENT, VAGINAL/RECTAL EXAMINATION, SURGICAL PROCEDURE, OR ANY OTHER EXPOSURE?YES - PLEASE INDICATE :RUBBER GLOVES, CONDOMS, UNDERWEAR, OTHER (DOCUMENT IN NOTES) BRAS - PLEASE INDICATE :VAGINAL EXAM DATE ASKED : 12/23/2019 LATEX RISK : HAVE YOU EVER HAD ANY DIFFICULTY BREATHING OR HIVES AFTER EATING OR HANDLING ANY FRUITS, OR VEGETABLES; SUCH KIWI, BANANAS, STONE FRUITS, OR CHESTNUTSNO LATEX RISK : DO YOU HAVE A PREVIOUS PERSONAL HISTORY OF MORE THAN NINE SURGERIES, SPINA BIFIDA, OR REPEATED CATHERIZATIONS? YES - PLEASE INDICATE : > 9 SURGERIES LATEX RISK : ARE YOU FREQUENTLY EXPOSED TO LATEX PRODUCTS IN YOUR OCCUPATION?NO LUNG CANCER SCREENING SMOKING STATUS:CURRENT SMOKER BMI CARE GOAL FOLLOW-UP ABOVE NORMAL BMI FOLLOW-UPDIETARY MANAGEMENT EDUCATION, GUIDANCE, AND COUNSELING, DIETARY NEEDS EDUCATION, EXERCISE PROMOTION: STRENGTH TRAINING ALCOHOL SCREENING DID YOU HAVE A DRINK CONTAINING ALCOHOL IN THE PAST YEAR?YES HOW OFTEN DID YOU HAVE SIX OR MORE DRINKS ON ONE OCCASION IN THE PAST YEAR?NEVER (0 POINTS) HOW MANY DRINKS DID YOU HAVE ON A TYPICAL DAY WHEN YOU WERE DRINKING IN THE PAST YEAR?1 OR 2 (0 POINTS) HOW OFTEN DID YOU HAVE A DRINK CONTAINING ALCOHOL IN THE PAST YEAR?TWO TO THREE TIMES PER WEEK (3 POINTS) POINTS3 INTERPRETATIONPOSITIVE RECREATIONAL DRUG USE DRUG USE?NO CAFFEINE CAFFEINE USE?YES 6-8 CUPS COFFEE DAILY, SODA ON OCCASIONS SEXUAL HX HAD SEX IN THE LAST 12 MONTHS (VAGINAL, ORAL, OR ANAL)?NO LMP:2009 HAVE YOU EVER HAD AN STD?NO HIV / HEP-C SCREENING HIV TEST OFFERED TO PATIENT:YES DATE OFFERED:03/13/2017 TEST ACCEPTED:NO HEP-C TEST OFFERED TO PATIENT:NO REASON:PATIENT DECLINED CATHOLIC [id number] JEWISH LANGUAGE LANGUAGES SPOKEN:SETSWANA EDUCATION LEVEL OF EDUCATION:NOT FINISHED COLLEGE LEARNING BARRIERS / SPECIAL NEEDS CHANGE FROM LAST VISIT?NO 10/07/19 BARRIERS TO LEARNING?NO HEARING IMPAIRED?YES VISION IMPAIRED?YES COGNITIVELY IMPAIRED?NO :CORRECTIVE LENSES READINESS TO LEARN?YES LEARNING PREFERENCES?NO LEARNING CAPABILITIES PRESENT?YES EMOTIONAL BARRIERS?NO SPECIAL DEVICES?NO PITCHING COACH NEEDED?NO DOMESTIC VIOLENCE DO YOU FEEL SAFE IN YOUR ENVIRONMENT?YES OCCUPATION: UNEMPLOYED. DIET: REGULAR. EXERCISE: NO REGULAR EXERCISE. MARITAL STATUS: SINGLE. NEW PATIENT PAIN DIARY PATIENT DESCRIBES PAIN :ACHING, HAVE IT ALL THE TIME, SHARP, STABBING, TENDER, THROBBING, SORE, SHOOTING FROM 0-10, WHAT LEVEL IS YOUR PAIN TODAY?8 PRECIPITATING FACTORS EVERYTHING ALLEVIATING FACTORS HEAT/ICE, MEDS IMPACT ON FUNCTION YES PAIN CLINIC PFS, CLERGY, PUBLIC HEALTH REFERRALS PFS REFERRAL NEEDED?NO CLERGY REFERRAL NEEDED?NO PUBLIC HEALTH REFERRAL NEEDED?NO WAS THE PROVIDER NOTIFIED OF ANY PERTINENT INFO?YES N/A HAS THE PATIENT BEEN EDUCATED REGARDING HIS/HER PLAN OF CARE?YES HAS THE PATIENT BEEN EDUCATED REGARDING PAIN, THE RISK FOR PAIN, THE IMPORTANCE OF EFFECTIVE PAIN MANAGEMENT, AND THE PAIN ASSESSMENT PROCESS?YES ADVANCE DIRECTIVE ADVANCE DIRECTIVE DISCUSSED WITH PATIENT:YES PT DOES NOT HAVE ANY ADVANCED DIREDCTIVES AND SHE DECLINES INFORMATION ON HCP AT THIS TIME. HOSPITALIZATION/MAJOR DIAGNOSTIC PROCEDURE SURGERY RELATED [facility] (SOMA OD) 05/2012 ADMITTED TO [facility] 12/2015 [facility] - RUPTURED BLADDER 10/2016 [facility] 2 DAY HOSPITAL STAY DUE TO NICKED BOWEL 12/19/2017 PNEUMONIA 2015 & 2017 REHAB 2014 REVIEW OF SYSTEMS REVIEWED BY: PROVIDER: HARRISON ZEPEDA MD . CONSTITUTIONAL: ANY CHANGE IN YOUR MEDICAL CONDITION? NO . CHILLS NO . FEVER NO . INFECTION: DO YOU HAVE NEW INFECTIONS? NO . DO YOU HAVE HISTORY OF MRSA? NO . MUSCULOSKELETAL: ANY NEW PATTERNS OF PAIN OR NUMBNESS? HANDS AND FEET TINGLING . GASTROENTEROLOGY: ANY NEW CHANGE IN BOWEL CONTROL? NO . GENITOURINARY: ANY NEW CHANGE IN BLADDER CONTROL? YES, KIDNEY STONE PAIN . IS THERE A CHANCE YOU COULD BE ? NO . HEMATOLOGY/LYMPH: DO YOU TAKE ANY BLOOD THINNERS? (FOR EXAMPLE- COUMADIN, PLAVIX, AGGRENOX, PLATEL, PRADAXA, OR XARELTO) NO . WHEN WAS YOUR LAST DOSE? DATE: TIME: . NEUROLOGY: HAVE YOU FALLEN IN THE PAST 12 MONTHS? YES, PRIOR TO LAST VISIT . ANY NEW EXTREMITY NUMBNESS OR WEAKNESS? NO . CARDIOLOGY: DO YOU HAVE A PACEMAKER OR DEFIBRILLATOR? NO . RESPIRATORY: HAVE YOU BEEN SICK IN THE PAST WEEK? NO . FEVER NO . FLU LIKE SYMPTOMS? NO . COUGH NO . INTEGUMENTARY: DO YOU HAVE ANY RASHES OR OPEN SORES? NO . ALLERGIC/IMMUNO: ARE YOU ALLERGIC TO IV DYE? NO . ANY NEW ALLERGIES? NO . PSYCHIATRIC: DO YOU HAVE THOUGHTS OF HURTING YOURSELF OR SOMEONE ELSE? NO . ARE YOU ABUSED, NEGLECTED, OR IN AN UNSAFE ENVIRONMENT? NO . ENDOCRINOLOGY: ARE YOU DIABETIC? NO . OTHER: DO YOU NEED ANY PRESCRIPTIONS? NO . IF YES, PLEASE LIST: ____ . ANY NEW PROBLEMS WITH YOUR MEDICATIONS? NO . WHEN DID YOU LAST EAT? ____ . WHEN DID YOU LAST DRINK? ____ . WHAT DID YOU LAST DRINK? ____ . NAME OF PERSON DRIVING YOU HOME? ____ . DO YOU HAVE ANY OTHER QUESTIONS OR CONCERNS NO . EXAMINATION GENERAL EXAMINATION: TELEMEDICINE VISIT VIA ZOOM. PATIENT IS ALERT, ORIENTED TIMES 3 AND COOPERATIVE. ASSESSMENTS LOW BACK PAIN - M54.5 (PRIMARY) OTHER CHRONIC PAIN - G89.29 SACROILIITIS, NOT ELSEWHERE CLASSIFIED - M46.1 TREATMENT LOW BACK PAIN CLINICAL NOTES: WE DISCUSSED SEVERAL ALTERNATIVES WITH MS. NICKERSON REGARDING HER TREATMENT OPTIONS AND CARE. THE PATIENT WAS ORIGINALLY SCHEDULED TO DO A SACROILIAC JOINT BLOCK; HOWEVER, DUE TO THE COVID-19 PRECAUTIONS, WE HAVE AGREED TO POSTPONE THE INJECTIONS TEMPORARILY AND TRY AGGRESSIVE PAIN MANAGEMENT USING MEDICATION FOR NOW. I WILL START THE PATIENT ON SOMA NEEDED FOR SPASMS AND PAIN WITH A MAXIMUM OF 2 TABLETS PER DAY. THE PATIENT IS AWARE THAT SOMA IS A NARCOTIC AND WAS REMINDED OF THE RISKS. THE PATIENT IS AWARE THAT THIS MEDICATION IS HIGHLY ADDICTIVE. THE PATIENT WAS REMINDED TO KEEP THE MEDICATION IN A SAFE PLACE. I REVIEWED THE PATIENT'S ISTOP, REFERENCE NUMBER [id number]. THE PATIENT WILL ALSO CONTINUE WITH BELBUCA PRESCRIBED. THE PATIENT WILL FOLLOWUP WITH RAVEN, NURSE PRACTITIONER, NEXT WEEK. THE PATIENT KNOWS TO CALL THE OFFICE IF SHE HAS ANY QUESTIONS OR CONCERNS. THE PATIENT UNDERSTANDS AND IS IN AGREEMENT WITH THE TREATMENT PLAN. I, SANJUANA SERNA, DOCUMENTED THE ABOVE INFORMATION ACTING A SCRIBE FOR DR. ZEPEDA. I HAVE REVIEWED THE ABOVE DOCUMENT, WRITTEN BY SAVANNAH TELLES, AND I VERIFY THAT IT IS ACCURATE.. OTHERS START CARISOPRODOL TABLET, 350 MG, 1 TABLET NEEDED, ORALLY FOR SPASMS AND PAIN, EVERY 12 HOURS NEEDED MDD2, 30 DAYS, 60, REFILLS 0 DISPOSITION & COMMUNICATION FOLLOW UP F/UP WITH HOSPITAL INSURANCE REPRESENTATIVE VIA TELEMED-ALREADY SCHEDULED (REASON: LOW BACK PAIN) ELECTRONICALLY SIGNED BY HARRISON ZEPEDA MD, ON 01/23/2020 AT 05:55 PM EDT DISCLAIMER : THIS IS A VISIT SUMMARY EXTRACTED FROM THE [employer] CHART. IT IS NOT A COPY OF THE [employer] PROGRESS NOTE. MTDD
== END ==
LOC: M PAIN 10:15
PROVIDERS: ATTEND Anesthesiology
DX: M54.5 Low back pain (principal); G89.29 Other chronic pain; M46.1 Sacroiliitis, not elsewhere classified; F17.210 Nicotine dependence, cigarettes, uncomplicated; Z79.899 Other long term (current) drug therapy; Z88.5 Allergy status to narcotic agent; Z88.8 Allergy status to other drugs, medicaments and biological substances; Z91.040 Latex allergy status

== ENCOUNTER → 2020-01-20 | Outpatient (CLI) | payer OTHER ==
--- NOTE | 2020-01-25 00:22 | ECWPNPC ---
PATIENT NAME: ADELA ALMONTE : 1980 GENDER: FEMALE VISIT DATE: 01/20/2020 DISCHARGE DATE: 01/20/20 1240 VISIT LOCKED DATE TIME: PHYSICIAN: RAVEN CORDON RESOURCE: RAVEN CORDON REASON FOR APPOINTMENT 1. REVIEW MRI HISTORY OF PRESENT ILLNESS HISTORY OF PRESENT ILLNESS: PAIN THE PATIENT DESCRIBES THE PAIN... PERMISSION REQUESTED AND RECEIVED TO PERFORM TELEHEALTH VISIT. 39-YEAR-OLD FEMALE IN FOR CHRONIC PAIN FOLLOW-UP AND TO REVIEW RECENT MRI. FALL RISK SCREENING: SCREENING :NO FALLS REPORTED IN THE LAST YEAR CURRENT MEDICATIONS TAKING VYVANSE 70 MG CAPSULE (SCHEDULE II DRUG) TAKE ONE CAPSULE BY MOUTH EVERY MORNING - MAXIMUM DAILY DOSE ONE CAPSULE ORAL TAKING TRULANCE 3 MG TABLET TAKE ONE TABLET BY MOUTH ONCE A DAY ORAL TAKING FLUCONAZOLE 150 MG TABLET TAKE ONE TABLET BY MOUTH NOW, TAKE ONE TABLET IN 72 HOURS IF NECESSARY ORAL TAKING TOPIRAMATE 50 MG TABLET TAKE ONE TABLET BY MOUTH TWICE DAILY BOTTLE ORAL TAKING BUSPIRONE HCL 30 MG TABLET TAKE ONE TABLET BY MOUTH @6AM AND TAKE ONE TABLET BY MOUTH @8PM ORAL TAKING DICYCLOMINE HCL 20 MG TABLET TAKE ONE TABLET BY MOUTH @6AM AND TAKE ONE TABLET @NOON AND TAKE ONE TABLET @8PM ( NEEDED FOR PAIN) ORAL TAKING FIBER LAXATIVE 0.52 GM CAPSULE TAKE TWO CAPSULES BY MOUTH @6AM AND TAKE TWO CAPSULES @8PM ORAL TAKING NIFEDIPINE 20 MG CAPSULE TAKE ONE CAPSULE BY MOUTH @6AM ORAL TAKING PANTOPRAZOLE SODIUM 40 MG TABLET DELAYED RELEASE TAKE ONE TABLET BY MOUTH @6AM ORAL TAKING LOSARTAN POTASSIUM 25 MG TABLET TAKE ONE TABLET BY MOUTH @6AM ORAL TAKING MOVANTIK 25 MG TABLET TAKE ONE TABLET BY MOUTH @6AM ORAL TAKING FUROSEMIDE 20 MG TABLET TAKE ONE TABLET BY MOUTH @6AM ORAL TAKING PROMETHAZINE HCL 25 MG TABLET TAKE ONE TABLET BY MOUTH @6AM AND TAKE ONE TABLET BY MOUTH @NOON AND TAKE ONE TABLET BY MOUTH @6PM AND TAKE ONE TABLET BY MOUTH @8PM ORAL TAKING PRAZOSIN HCL 1 MG CAPSULE TAKE ONE CAPSULE BY MOUTH @8PM ORAL TAKING ESTRADIOL 0.025 MG/24HR PATCH WEEKLY APPLY ONE PATCH TOPICALLY ONCE PER WEEK TRANSDERMAL TAKING CETIRIZINE HCL 10 MG TABLET TAKE ONE TABLET BY MOUTH @6AM ( NEEDED) ORAL TAKING AIMOVIG 70 MG/ML SOLUTION AUTO-INJECTOR USE ONCE PER MONTH SUBCUTANEOUS TAKING VRAYLAR 4.5 MG CAPSULE TAKE ONE CAPSULE BY MOUTH AT BEDTIME ORALLY TAKING LIDOCAINE HCL 3 % CREAM APPLY TO ABDOMEN 30 MINUTES PRIOR TO INFUSION EXTERNAL TAKING FAMOTIDINE 40 MG TABLET TAKE ONE TABLET BY MOUTH @8PM ORAL TAKING IMITREX TAKING ALBUTEROL SULFATE (2.5 MG/3ML) 0.083% NEBULIZATION SOLUTION 3 ML NEEDED INHALATION EVERY 8 HRS TAKING CUVITRU 4 GM/20ML SOLUTION DIRECTED SUBCUTANEOUS TAKING CAMPRAL DOSE THOR 333 MG TABLET DELAYED RELEASE 2 TABLETS ORALLY THREE TIMES A DAY TAKING BOTOX 100 UNIT SOLUTION RECONSTITUTED DIRECTED INTRAMUSCULAR TAKING PHENAZOPYRIDINE HCL 100 MG TABLET 1 TABLET AFTER MEALS ORALLY THREE TIMES DAILY NEEDED TAKING PREGABALIN 200 MG CAPSULE 1 CAPSULE ORAL THREE TIMES DAILY TAKING BELBUCA 150 MCG FILM (SCHEDULE III DRUG) APPLY ONE FILM TO THE GUM EVERY 12 HOURS - MAXIMUM DAILY DOSE TWO FILMS BUCCAL EVERY 12 HRS TAKING ACETAMINOPHEN 500 MG CAPSULE 1 CAPSULES NEEDED ORALLY EVERY 6 HRS PRN TAKING IBUPROFEN 800 MG TABLET 1 TABLET WITH FOOD OR MILK NEEDED ORALLY THREE TIMES A DAY NEEDED FOR SEVERE HEADACHES TAKING CHANTIX 1 MG 1 TAB ORALLY BID TAKING VENTOLIN HFA 90 MCG/ACT AEROSOL SOLUTION 1 PUFF NEEDED INHALATION EVERY 4 HRS TAKING AMMONIUM LACTATE 10 % LOTION 1 APPLICATION TO AFFECTED AREA EXTERNALLY TWICE A DAY, NOTES: HAS NOT USED IN A WHILE TAKING CARISOPRODOL 350 MG TABLET 1 TABLET NEEDED ORALLY FOR SPASMS AND PAIN EVERY 12 HOURS NEEDED MDD2 NOT-TAKING FLUTICASONE PROPIONATE 50 MCG/ACT SUSPENSION 1 SPRAY IN EACH NOSTRIL NASALLY ONCE A DAY MEDICATION LIST REVIEWED AND RECONCILED WITH THE PATIENT PAST MEDICAL HISTORY SURGICAL MENOPAUSE S/P ELIA & BSO 2009 CHRONIC NECK/MID/LOW BACK PAIN PEPTIC ULCER DISEASE, S/P GASTRIC BYPASS - ON PROTONIX AND CARAFATE BY DR. MILLER BIPOLAR, ANXIETY, DEPRESSION - FOLLWS WITH DR. OTERO ALCOHOLISM MIGRAINE HEADACHES TOBACCO USE ADD CHRONIC RHINITIS/SINUSITIS RAYNAUD''S SYNDROME COMMON VARIABLE IMMUNO DEFICIENCY DISEASE ASTHMA HEART MURMUR - ECHO 10/2017 BORDERLINE LVH, MILD LAE, SUBTLE AV SCLEROSIS, AORTIC SCLEROSIS, MILD AR, MILD MR SLEEP APNEA WITH BIPAP S/P GASTRIC BYPASS FAINTING SPELLS CHRONIC PNEUMONIA KIDNEY STONES DRUG ABUSE IN REMISSION ALLERGIES MORPHINE SULFATE: TACHYCARDIA DILAUDID: TACHYCARDIA REGLAN: HIVES LAMICTAL: WELTS LATEX GLOVES SURGICAL HISTORY LUMBAR LAMINECTOMY [place] 02/11 BACK SURGERY 1997 LAPAROTOMY X 4...CARTHAGE....DR. CRISTOBAL CHOLECYSTECTOMY 07/13 HYSTERECTOMY, APPENDECTOMY - FOR ENDOMETRIOSIS 12/13 GASTRIC BYPASS (DR. CARTAGENA, [facility]) 01/2012 LAPAROSCOPY AND REMOVAL OF ADHESIONS (DR. BARRERA) 12/2012 CHEST TUBE ENDOSCOPY/COLONOSCOPY BLOOD TRANSFUSION BLADDER REPAIR 10/2016 LAPROSCOPC SURGERY FOR ENDOMETRIOSIS / LYSIS OF ADHESIONS AND SCAR TISSUE (BOWEL NICKED IN OR). 12/19/17 EGD - ESOPHAGEAL PLAQUE - BIOPSY RESULTS NOT SENT TO US (DR. MILLER) 05/2018 REMOVAL CYSTS IN BILATERAL EARS REMOVAL OF NEEDLE FROM RIGHT FOOT FAMILY HISTORY FATHER: ALIVE, DIAGNOSED WITH UNSPECIFIED CEREBRAL ARTERY OCCLUSION WITH CEREBRAL INFARCTION, OTHER MALIGNANT NEOPLASM OF UNSPECIFIED SITE MOTHER: ALIVE, DIABETES, HYPERTENSION, UNSPECIFIED HEART DISEASE SIBLINGS: ALIVE 1 SISTER(S) . FATHER SKIN CANCER\\\\NSISTER WITH HOSHIMOTO\\\\\\\'S. DENIES FAMILY HX OF PANCREATIC CANCER, GRANDMOTHER AND FATHER HAD MELANOMA. SOCIAL HISTORY GENERAL: TOBACCO USE ARE YOU A:CURRENT SMOKER ARE YOU INTERESTED IN QUITTING?READY TO QUIT WAITING FOR PRESCRIPTION FOR CHANTIX. COUNSELED THE PATIENT ON TOBACCO USE, CESSATION [id number]/16/2020 HOW MANY CIGARETTES A DAY DO YOU SMOKE?11-20 HOW SOON AFTER YOU WAKE UP DO YOU SMOKE YOUR FIRST CIGARETTE?AFTER 60 MIN HOW OFTEN DO YOU SMOKE CIGARETTES?EVERY DAY PATIENT COUNSELED ON THE DANGERS OF TOBACCO USE AND URGED TO QUIT:12/21/2019 SMOKING CESSATION INFORMATION GIVEN12/21/2019 LATEX QUESTIONNAIRE LATEX ALLERGY : HAVE YOU EVER DEVELOPED ANY TYPE OF REACTION AFTER HANDLING LATEX PRODUCTS SUCH RUBBER GLOVES, CONDOMS, DIAPHRAGMS, BALLOONS, SOCKS, OR UNDERWEAR?YES LATEX ALLERGY : HAVE YOU EVER DEVELOPED ANY TYPE OF REACTION DURING OR AFTER DENTAL APPOINTMENT, VAGINAL/RECTAL EXAMINATION, SURGICAL PROCEDURE, OR ANY OTHER EXPOSURE?YES - PLEASE INDICATE :RUBBER GLOVES, CONDOMS, UNDERWEAR, OTHER (DOCUMENT IN NOTES) BRAS - PLEASE INDICATE :VAGINAL EXAM DATE ASKED : 12/23/2019 LATEX RISK : HAVE YOU EVER HAD ANY DIFFICULTY BREATHING OR HIVES AFTER EATING OR HANDLING ANY FRUITS, OR VEGETABLES; SUCH KIWI, BANANAS, STONE FRUITS, OR CHESTNUTSNO LATEX RISK : DO YOU HAVE A PREVIOUS PERSONAL HISTORY OF MORE THAN NINE SURGERIES, SPINA BIFIDA, OR REPEATED CATHERIZATIONS? YES - PLEASE INDICATE : > 9 SURGERIES LATEX RISK : ARE YOU FREQUENTLY EXPOSED TO LATEX PRODUCTS IN YOUR OCCUPATION?NO LUNG CANCER SCREENING SMOKING STATUS:CURRENT SMOKER BMI CARE GOAL FOLLOW-UP ABOVE NORMAL BMI FOLLOW-UPDIETARY MANAGEMENT EDUCATION, GUIDANCE, AND COUNSELING, DIETARY NEEDS EDUCATION, EXERCISE PROMOTION: STRENGTH TRAINING ALCOHOL SCREENING DID YOU HAVE A DRINK CONTAINING ALCOHOL IN THE PAST YEAR?YES HOW OFTEN DID YOU HAVE SIX OR MORE DRINKS ON ONE OCCASION IN THE PAST YEAR?NEVER (0 POINTS) HOW MANY DRINKS DID YOU HAVE ON A TYPICAL DAY WHEN YOU WERE DRINKING IN THE PAST YEAR?1 OR 2 (0 POINTS) HOW OFTEN DID YOU HAVE A DRINK CONTAINING ALCOHOL IN THE PAST YEAR?TWO TO THREE TIMES PER WEEK (3 POINTS) POINTS3 INTERPRETATIONPOSITIVE RECREATIONAL DRUG USE DRUG USE?NO CAFFEINE CAFFEINE USE?YES 6-8 CUPS COFFEE DAILY, SODA ON OCCASIONS SEXUAL HX HAD SEX IN THE LAST 12 MONTHS (VAGINAL, ORAL, OR ANAL)?NO LMP:2009 HAVE YOU EVER HAD AN STD?NO HIV / HEP-C SCREENING HIV TEST OFFERED TO PATIENT:YES DATE OFFERED:03/13/2017 TEST ACCEPTED:NO HEP-C TEST OFFERED TO PATIENT:NO REASON:PATIENT DECLINED JEW [id number] SIKH LANGUAGE LANGUAGES SPOKEN:NIGERIAN EDUCATION LEVEL OF EDUCATION:NOT FINISHED COLLEGE LEARNING BARRIERS / SPECIAL NEEDS CHANGE FROM LAST VISIT?NO 10/07/19 BARRIERS TO LEARNING?NO HEARING IMPAIRED?YES VISION IMPAIRED?YES COGNITIVELY IMPAIRED?NO :CORRECTIVE LENSES READINESS TO LEARN?YES LEARNING PREFERENCES?NO LEARNING CAPABILITIES PRESENT?YES EMOTIONAL BARRIERS?NO SPECIAL DEVICES?NO EQUIP MAINT ENG NEEDED?NO DOMESTIC VIOLENCE DO YOU FEEL SAFE IN YOUR ENVIRONMENT?YES OCCUPATION: UNEMPLOYED. DIET: REGULAR. EXERCISE: NO REGULAR EXERCISE. MARITAL STATUS: SINGLE. NEW PATIENT PAIN DIARY PATIENT DESCRIBES PAIN :ACHING, HAVE IT ALL THE TIME, SHARP, STABBING, TENDER, THROBBING, SORE, SHOOTING FROM 0-10, WHAT LEVEL IS YOUR PAIN TODAY?8 PRECIPITATING FACTORS EVERYTHING ALLEVIATING FACTORS HEAT/ICE, MEDS IMPACT ON FUNCTION YES PAIN CLINIC PFS, CLERGY, PUBLIC HEALTH REFERRALS PFS REFERRAL NEEDED?NO CLERGY REFERRAL NEEDED?NO PUBLIC HEALTH REFERRAL NEEDED?NO WAS THE PROVIDER NOTIFIED OF ANY PERTINENT INFO?YES N/A HAS THE PATIENT BEEN EDUCATED REGARDING HIS/HER PLAN OF CARE?YES HAS THE PATIENT BEEN EDUCATED REGARDING PAIN, THE RISK FOR PAIN, THE IMPORTANCE OF EFFECTIVE PAIN MANAGEMENT, AND THE PAIN ASSESSMENT PROCESS?YES ADVANCE DIRECTIVE ADVANCE DIRECTIVE DISCUSSED WITH PATIENT:YES PT DOES NOT HAVE ANY ADVANCED DIREDCTIVES AND SHE DECLINES INFORMATION ON HCP AT THIS TIME. HOSPITALIZATION/MAJOR DIAGNOSTIC PROCEDURE SURGERY RELATED [facility] ([facility]) 05/2012 ADMITTED TO [facility] 12/2015 [facility] - [facility]ED BLADDER 10/2016 [facility] 2 DAY HOSPITAL STAY DUE TO NICKED BOWEL 12/19/2017 PNEUMONIA 2015 & 2017 REHAB 2014 REVIEW OF SYSTEMS REVIEWED BY: PROVIDER: ENRIQUETA CORDON SHAREPOINT SPECIALIST-C . CONSTITUTIONAL: ANY CHANGE IN YOUR MEDICAL CONDITION? NO . CHILLS NO . FEVER NO . INFECTION: DO YOU HAVE NEW INFECTIONS? NO . DO YOU HAVE HISTORY OF MRSA? NO . MUSCULOSKELETAL: ANY NEW PATTERNS OF PAIN OR NUMBNESS? NO . GASTROENTEROLOGY: ANY NEW CHANGE IN BOWEL CONTROL? NO . GENITOURINARY: ANY NEW CHANGE IN BLADDER CONTROL? NO . IS THERE A CHANCE YOU COULD BE ? NO . HEMATOLOGY/LYMPH: DO YOU TAKE ANY BLOOD THINNERS? (FOR EXAMPLE- COUMADIN, PLAVIX, AGGRENOX, PLATEL, PRADAXA, OR XARELTO) NO . WHEN WAS YOUR LAST DOSE? DATE: TIME: . NEUROLOGY: HAVE YOU FALLEN IN THE PAST 12 MONTHS? YES, PRIOR TO LAST VISIT . ANY NEW EXTREMITY NUMBNESS OR WEAKNESS? NO . CARDIOLOGY: DO YOU HAVE A PACEMAKER OR DEFIBRILLATOR? NO . RESPIRATORY: HAVE YOU BEEN SICK IN THE PAST WEEK? NO . FEVER NO . FLU LIKE SYMPTOMS? NO . COUGH NO . INTEGUMENTARY: DO YOU HAVE ANY RASHES OR OPEN SORES? NO . ALLERGIC/IMMUNO: ARE YOU ALLERGIC TO IV DYE? NO . ANY NEW ALLERGIES? NO . PSYCHIATRIC: DO YOU HAVE THOUGHTS OF HURTING YOURSELF OR SOMEONE ELSE? NO . ARE YOU ABUSED, NEGLECTED, OR IN AN UNSAFE ENVIRONMENT? NO . ENDOCRINOLOGY: ARE YOU DIABETIC? NO . OTHER: DO YOU NEED ANY PRESCRIPTIONS? YES, [place] BELBUCA . IF YES, PLEASE LIST: ____ . ANY NEW PROBLEMS WITH YOUR MEDICATIONS? NO . WHEN DID YOU LAST EAT? ____ . WHEN DID YOU LAST DRINK? ____ . WHAT DID YOU LAST DRINK? ____ . NAME OF PERSON DRIVING YOU HOME? ____ . DO YOU HAVE ANY OTHER QUESTIONS OR CONCERNS NO . EXAMINATION GENERAL EXAMINATION: GENERALNO ACUTE DISTRESS, WELL NOURISHED AND HYDRATED. PSYCHAPPROPRIATE MOOD AND AFFECT , ORIENTED X 3. ASSESSMENTS CERVICALGIA - M54.2 (PRIMARY) TREATMENT CERVICALGIA REFILL PREGABALIN CAPSULE, 200 MG, 1 CAPSULE, ORAL, THREE TIMES DAILY, 30 DAYS, 90 CLINICAL NOTES: 39-YEAR-OLD FEMALE IN FOR CHRONIC PAIN FOLLOW-UP. MRI WAS REVIEWED WITH PATIENT. GIVEN PRESENTING SYMPTOMS RECOMMENDED CONTINUATION OF CURRENT MEDICATION REGIMEN WITH FOLLOW-UP IN 2 MONTHS. PATIENT EXPRESSED CONCERN REGARDING MUSCLE WEAKNESS AND SPASMS FURTHER STATING THAT SHE IS DROPPING THINGS. GIVEN THE SYMPTOMS PATIENT WAS ENCOURAGED TO DISCUSS THEM WITH NEUROLOGY. PATIENT HAS EXPRESSED UNDERSTANDING OF AND WAS IN AGREEMENT WITH TREATMENT PLAN. GIVEN TIME TO ASK QUESTIONS AND EXPRESS CONCERNS., ISTOP REGISTRY REVIEWED AND DEMONSTRATES COMPLLIANCE. (REF # [id number] ) BRINGS IN MEDICATIONS WHICH IS APPROPRIATE FOR WHAT WAS DISPENSED. RECENT URINE TOXICOLOGY REVIEWED. NO UNAUTHORIZED MEDICATIONS. NO ILLICIT SUBSTANCES AND PRESCRIBED MEDICATIONS WERE PRESENT. DISPOSITION & COMMUNICATION FOLLOW UP 2 MONTHS (REASON: NECK AND BACK PAIN) ELECTRONICALLY SIGNED BY JAKUB VILLEDA ON 01/24/2020 AT 08:32 AM EDT DISCLAIMER : THIS IS A VISIT SUMMARY EXTRACTED FROM THE [facility] CHART. IT IS NOT A COPY OF THE [facility] PROGRESS NOTE. [facility]
== END ==
LOC: M TMPAIN 11:15 → M PAIN 11:15
PROVIDERS: ATTEND Family Medicine
DX: M54.2 Cervicalgia (principal); F17.210 Nicotine dependence, cigarettes, uncomplicated; Z79.899 Other long term (current) drug therapy; Z98.84 Bariatric surgery status; Z88.5 Allergy status to narcotic agent; Z88.8 Allergy status to other drugs, medicaments and biological substances; Z91.040 Latex allergy status

== ENCOUNTER → 2020-02-01 | Outpatient (CLI) | payer OTHER ==
--- NOTE | 2020-02-08 02:43 | ECWPNPC ---
PATIENT NAME: ADELA ALMONTE : 1980 GENDER: FEMALE VISIT DATE: 02/01/2020 DISCHARGE DATE: 02/01/20 1620 VISIT LOCKED DATE TIME: PHYSICIAN: HARRISON ZEPEDA MD RESOURCE: HARRISON ZEPEDA MD REASON FOR APPOINTMENT 1. BACK PAIN [phone] PT WAS SIJ ON 01-18. HISTORY OF PRESENT ILLNESS HISTORY OF PRESENT ILLNESS: PAIN THE PATIENT DESCRIBES THE PAIN... PERMISSION FROM PATIENT WAS RECEIVED TO DO TELEMEDICINE VISIT USING ZOOM APPLICATION. 40 YEAR OLD FEMALE PATIENT WITH A HISTORY OF CHRONIC LOW BACK PAIN. THE PATIENT DESCRIBES HER PAIN ACHING, HAVE IT ALL THE TIME, SHARP, STABBING, TENDER, THROBBING, SORE, SHOOTING WITH A PAIN SCORE OF 6-9/10 DEPENDING ON PHYSICAL ACTIVITY. THE PATIENT STATES HER LOW BACK PAIN IS SEVERE AND IS AFFECTING HER ABILITY TO PERFORM HER DAILY ACTIVITIES, SUCH COOKING, CLEANING, AND ENJOYING DAILY LIVING. THE PATIENT RECEIVED SACROILIAC JOINT BLOCKS IN THE PAST THAT SHE SAYS HAS HELPED WITH HER PAIN, AND SHE WOULD LIKE ANOTHER ONE TO HELP WITH HER CURRENT PAIN. THE PATIENT DENIES UNEXPLAINED WEIGHT LOSS, FEVER, CHILLS, NEW CHANGES IN HER URINARY OR BOWEL CONTROL. FALL RISK SCREENING: SCREENING :NO FALLS REPORTED IN THE LAST YEAR CURRENT MEDICATIONS TAKING VYVANSE 70 MG CAPSULE (SCHEDULE II DRUG) TAKE ONE CAPSULE BY MOUTH EVERY MORNING - MAXIMUM DAILY DOSE ONE CAPSULE ORAL TAKING TRULANCE 3 MG TABLET TAKE ONE TABLET BY MOUTH ONCE A DAY ORAL TAKING FLUCONAZOLE 150 MG TABLET TAKE ONE TABLET BY MOUTH NOW, TAKE ONE TABLET IN 72 HOURS IF NECESSARY ORAL TAKING TOPIRAMATE 50 MG TABLET TAKE ONE TABLET BY MOUTH TWICE DAILY BOTTLE ORAL TAKING BUSPIRONE HCL 30 MG TABLET TAKE ONE TABLET BY MOUTH @6AM AND TAKE ONE TABLET BY MOUTH @8PM ORAL TAKING DICYCLOMINE HCL 20 MG TABLET TAKE ONE TABLET BY MOUTH @6AM AND TAKE ONE TABLET @NOON AND TAKE ONE TABLET @8PM ( NEEDED FOR PAIN) ORAL TAKING FIBER LAXATIVE 0.52 GM CAPSULE TAKE TWO CAPSULES BY MOUTH @6AM AND TAKE TWO CAPSULES @8PM ORAL TAKING NIFEDIPINE 20 MG CAPSULE TAKE ONE CAPSULE BY MOUTH @6AM ORAL TAKING PANTOPRAZOLE SODIUM 40 MG TABLET DELAYED RELEASE TAKE ONE TABLET BY MOUTH @6AM ORAL TAKING LOSARTAN POTASSIUM 25 MG TABLET TAKE ONE TABLET BY MOUTH @6AM ORAL TAKING MOVANTIK 25 MG TABLET TAKE ONE TABLET BY MOUTH @6AM ORAL TAKING PROMETHAZINE HCL 25 MG TABLET TAKE ONE TABLET BY MOUTH @6AM AND TAKE ONE TABLET BY MOUTH @NOON AND TAKE ONE TABLET BY MOUTH @6PM AND TAKE ONE TABLET BY MOUTH @8PM ORAL TAKING PRAZOSIN HCL 1 MG CAPSULE TAKE ONE CAPSULE BY MOUTH @8PM ORAL TAKING ESTRADIOL 0.025 MG/24HR PATCH WEEKLY APPLY ONE PATCH TOPICALLY ONCE PER WEEK TRANSDERMAL TAKING CETIRIZINE HCL 10 MG TABLET TAKE ONE TABLET BY MOUTH @6AM ( NEEDED) ORAL TAKING AIMOVIG 70 MG/ML SOLUTION AUTO-INJECTOR USE ONCE PER MONTH SUBCUTANEOUS TAKING VRAYLAR 4.5 MG CAPSULE TAKE ONE CAPSULE BY MOUTH AT BEDTIME ORALLY TAKING LIDOCAINE HCL 3 % CREAM APPLY TO ABDOMEN 30 MINUTES PRIOR TO INFUSION EXTERNAL TAKING FAMOTIDINE 40 MG TABLET TAKE ONE TABLET BY MOUTH @8PM ORAL TAKING IMITREX TAKING ALBUTEROL SULFATE (2.5 MG/3ML) 0.083% NEBULIZATION SOLUTION 3 ML NEEDED INHALATION EVERY 8 HRS TAKING CUVITRU 4 GM/20ML SOLUTION DIRECTED SUBCUTANEOUS TAKING CAMPRAL DOSE THOR 333 MG TABLET DELAYED RELEASE 2 TABLETS ORALLY THREE TIMES A DAY TAKING BOTOX 100 UNIT SOLUTION RECONSTITUTED DIRECTED INTRAMUSCULAR TAKING PHENAZOPYRIDINE HCL 100 MG TABLET 1 TABLET AFTER MEALS ORALLY THREE TIMES DAILY NEEDED TAKING BELBUCA 150 MCG FILM (SCHEDULE III DRUG) APPLY ONE FILM TO THE GUM EVERY 12 HOURS - MAXIMUM DAILY DOSE TWO FILMS BUCCAL EVERY 12 HRS TAKING ACETAMINOPHEN 500 MG CAPSULE 1 CAPSULES NEEDED ORALLY EVERY 6 HRS PRN TAKING IBUPROFEN 800 MG TABLET 1 TABLET WITH FOOD OR MILK NEEDED ORALLY THREE TIMES A DAY NEEDED FOR SEVERE HEADACHES TAKING CHANTIX 1 MG 1 TAB ORALLY BID TAKING VENTOLIN HFA 90 MCG/ACT AEROSOL SOLUTION 1 PUFF NEEDED INHALATION EVERY 4 HRS TAKING AMMONIUM LACTATE 10 % LOTION 1 APPLICATION TO AFFECTED AREA EXTERNALLY TWICE A DAY, NOTES: HAS NOT USED IN A WHILE TAKING CARISOPRODOL 350 MG TABLET 1 TABLET NEEDED ORALLY FOR SPASMS AND PAIN EVERY 12 HOURS NEEDED MDD2 TAKING PREGABALIN 200 MG CAPSULE 1 CAPSULE ORAL THREE TIMES DAILY TAKING FUROSEMIDE 20 MG TABLET TAKE ONE TABLET BY MOUTH @6AM ORAL NOT-TAKING FLUTICASONE PROPIONATE 50 MCG/ACT SUSPENSION 1 SPRAY IN EACH NOSTRIL NASALLY ONCE A DAY MEDICATION LIST REVIEWED AND RECONCILED WITH THE PATIENT PAST MEDICAL HISTORY SURGICAL MENOPAUSE S/P ELIA & BSO 2009 CHRONIC NECK/MID/LOW BACK PAIN PEPTIC ULCER DISEASE, S/P GASTRIC BYPASS - ON PROTONIX AND CARAFATE BY DR. MILLER BIPOLAR, ANXIETY, DEPRESSION - FOLLWS WITH DR. OTERO ALCOHOLISM MIGRAINE HEADACHES TOBACCO USE ADD CHRONIC RHINITIS/SINUSITIS RAYNAUD''S SYNDROME COMMON VARIABLE IMMUNO DEFICIENCY DISEASE ASTHMA HEART MURMUR - ECHO 10/2017 BORDERLINE LVH, MILD LAE, SUBTLE AV SCLEROSIS, AORTIC SCLEROSIS, MILD AR, MILD MR SLEEP APNEA WITH BIPAP S/P GASTRIC BYPASS FAINTING SPELLS CHRONIC PNEUMONIA KIDNEY STONES DRUG ABUSE IN REMISSION ALLERGIES MORPHINE SULFATE: TACHYCARDIA DILAUDID: TACHYCARDIA REGLAN: HIVES LAMICTAL: WELTS LATEX GLOVES SURGICAL HISTORY LUMBAR LAMINECTOMY [place] 02/11 BACK SURGERY 1997 LAPAROTOMY X 4...CARTHAGE....DR. CRISTOBAL CHOLECYSTECTOMY 07/13 HYSTERECTOMY, APPENDECTOMY - FOR ENDOMETRIOSIS 12/13 GASTRIC BYPASS (DR. CARTAGENA, [facility]) 01/2012 LAPAROSCOPY AND REMOVAL OF ADHESIONS (DR. BARRERA) 12/2012 CHEST TUBE ENDOSCOPY/COLONOSCOPY BLOOD TRANSFUSION BLADDER REPAIR 10/2016 LAPROSCOPC SURGERY FOR ENDOMETRIOSIS / LYSIS OF ADHESIONS AND SCAR TISSUE (BOWEL NICKED IN OR). 12/19/17 EGD - ESOPHAGEAL PLAQUE - BIOPSY RESULTS NOT SENT TO US (DR. MILLER) 05/2018 REMOVAL CYSTS IN BILATERAL EARS REMOVAL OF NEEDLE FROM RIGHT FOOT FAMILY HISTORY FATHER: ALIVE, DIAGNOSED WITH UNSPECIFIED CEREBRAL ARTERY OCCLUSION WITH CEREBRAL INFARCTION, OTHER MALIGNANT NEOPLASM OF UNSPECIFIED SITE MOTHER: ALIVE, DIABETES, HYPERTENSION, UNSPECIFIED HEART DISEASE SIBLINGS: ALIVE 1 SISTER(S) . FATHER SKIN CANCER\\\\NSISTER WITH HOSHIMOTO\\\\\\\'S. DENIES FAMILY HX OF PANCREATIC CANCER, GRANDMOTHER AND FATHER HAD MELANOMA. SOCIAL HISTORY GENERAL: TOBACCO USE ARE YOU A:CURRENT SMOKER ARE YOU INTERESTED IN QUITTING?READY TO QUIT WAITING FOR PRESCRIPTION FOR CHANTIX. COUNSELED THE PATIENT ON TOBACCO USE, CESSATION [id number]/2020 HOW MANY CIGARETTES A DAY DO YOU SMOKE?11-20 HOW SOON AFTER YOU WAKE UP DO YOU SMOKE YOUR FIRST CIGARETTE?AFTER 60 MIN HOW OFTEN DO YOU SMOKE CIGARETTES?EVERY DAY PATIENT COUNSELED ON THE DANGERS OF TOBACCO USE AND URGED TO QUIT:12/21/2019 SMOKING CESSATION INFORMATION GIVEN12/21/2019 LATEX QUESTIONNAIRE LATEX ALLERGY : HAVE YOU EVER DEVELOPED ANY TYPE OF REACTION AFTER HANDLING LATEX PRODUCTS SUCH RUBBER GLOVES, CONDOMS, DIAPHRAGMS, BALLOONS, SOCKS, OR UNDERWEAR?YES LATEX ALLERGY : HAVE YOU EVER DEVELOPED ANY TYPE OF REACTION DURING OR AFTER DENTAL APPOINTMENT, VAGINAL/RECTAL EXAMINATION, SURGICAL PROCEDURE, OR ANY OTHER EXPOSURE?YES - PLEASE INDICATE :RUBBER GLOVES, CONDOMS, UNDERWEAR, OTHER (DOCUMENT IN NOTES) BRAS - PLEASE INDICATE :VAGINAL EXAM DATE ASKED : 12/23/2019 LATEX RISK : HAVE YOU EVER HAD ANY DIFFICULTY BREATHING OR HIVES AFTER EATING OR HANDLING ANY FRUITS, OR VEGETABLES; SUCH KIWI, BANANAS, STONE FRUITS, OR CHESTNUTSNO LATEX RISK : DO YOU HAVE A PREVIOUS PERSONAL HISTORY OF MORE THAN NINE SURGERIES, SPINA BIFIDA, OR REPEATED CATHERIZATIONS? YES - PLEASE INDICATE : > 9 SURGERIES LATEX RISK : ARE YOU FREQUENTLY EXPOSED TO LATEX PRODUCTS IN YOUR OCCUPATION?NO LUNG CANCER SCREENING SMOKING STATUS:CURRENT SMOKER BMI CARE GOAL FOLLOW-UP ABOVE NORMAL BMI FOLLOW-UPDIETARY MANAGEMENT EDUCATION, GUIDANCE, AND COUNSELING, DIETARY NEEDS EDUCATION, EXERCISE PROMOTION: STRENGTH TRAINING ALCOHOL SCREENING DID YOU HAVE A DRINK CONTAINING ALCOHOL IN THE PAST YEAR?YES HOW OFTEN DID YOU HAVE SIX OR MORE DRINKS ON ONE OCCASION IN THE PAST YEAR?NEVER (0 POINTS) HOW MANY DRINKS DID YOU HAVE ON A TYPICAL DAY WHEN YOU WERE DRINKING IN THE PAST YEAR?1 OR 2 (0 POINTS) HOW OFTEN DID YOU HAVE A DRINK CONTAINING ALCOHOL IN THE PAST YEAR?TWO TO THREE TIMES PER WEEK (3 POINTS) POINTS3 INTERPRETATIONPOSITIVE RECREATIONAL DRUG USE DRUG USE?NO CAFFEINE CAFFEINE USE?YES 6-8 CUPS COFFEE DAILY, SODA ON OCCASIONS SEXUAL HX HAD SEX IN THE LAST 12 MONTHS (VAGINAL, ORAL, OR ANAL)?NO LMP:2009 HAVE YOU EVER HAD AN STD?NO HIV / HEP-C SCREENING HIV TEST OFFERED TO PATIENT:YES DATE OFFERED:03/13/2017 TEST ACCEPTED:NO HEP-C TEST OFFERED TO PATIENT:NO REASON:PATIENT DECLINED LATTER-DAY [id number] [employer] LANGUAGE LANGUAGES SPOKEN:ROMANIAN EDUCATION LEVEL OF EDUCATION:NOT FINISHED COLLEGE LEARNING BARRIERS / SPECIAL NEEDS CHANGE FROM LAST VISIT?NO 10/07/19 BARRIERS TO LEARNING?NO HEARING IMPAIRED?YES VISION IMPAIRED?YES COGNITIVELY IMPAIRED?NO :CORRECTIVE LENSES READINESS TO LEARN?YES LEARNING PREFERENCES?NO LEARNING CAPABILITIES PRESENT?YES EMOTIONAL BARRIERS?NO SPECIAL DEVICES?NO ORTHO ASSISTANT NEEDED?NO DOMESTIC VIOLENCE DO YOU FEEL SAFE IN YOUR ENVIRONMENT?YES OCCUPATION: UNEMPLOYED. DIET: REGULAR. EXERCISE: NO REGULAR EXERCISE. MARITAL STATUS: SINGLE. NEW PATIENT PAIN DIARY TODAY'S VISIT 02/01/20 PATIENT DESCRIBES PAIN :ACHING, HAVE IT ALL THE TIME, SHARP, STABBING, TENDER, THROBBING, SORE, SHOOTING FROM 0-10, WHAT LEVEL IS YOUR PAIN TODAY?8 PRECIPITATING FACTORS EVERYTHING ALLEVIATING FACTORS HEAT/ICE, MEDS IMPACT ON FUNCTION YES PAIN CLINIC PFS, CLERGY, PUBLIC HEALTH REFERRALS PFS REFERRAL NEEDED?NO CLERGY REFERRAL NEEDED?NO PUBLIC HEALTH REFERRAL NEEDED?NO WAS THE PROVIDER NOTIFIED OF ANY PERTINENT INFO?YES N/A HAS THE PATIENT BEEN EDUCATED REGARDING HIS/HER PLAN OF CARE?YES HAS THE PATIENT BEEN EDUCATED REGARDING PAIN, THE RISK FOR PAIN, THE IMPORTANCE OF EFFECTIVE PAIN MANAGEMENT, AND THE PAIN ASSESSMENT PROCESS?YES ADVANCE DIRECTIVE ADVANCE DIRECTIVE DISCUSSED WITH PATIENT:YES PT DOES NOT HAVE ANY ADVANCED DIREDCTIVES AND SHE DECLINES INFORMATION ON HCP AT THIS TIME. HOSPITALIZATION/MAJOR DIAGNOSTIC PROCEDURE SURGERY RELATED [facility] ([facility]) 05/2012 ADMITTED TO [facility] 12/2015 [facility] - [facility]ED BLADDER 10/2016 [facility] 2 DAY HOSPITAL STAY DUE TO NICKED BOWEL 12/19/2017 PNEUMONIA 2015 & 2018 REHAB 2014 REVIEW OF SYSTEMS REVIEWED BY: PROVIDER: HARRISON ZEPEDA MD . CONSTITUTIONAL: ANY CHANGE IN YOUR MEDICAL CONDITION? NO . CHILLS NO . FEVER NO . INFECTION: DO YOU HAVE NEW INFECTIONS? NO . DO YOU HAVE HISTORY OF MRSA? NO . MUSCULOSKELETAL: ANY NEW PATTERNS OF PAIN OR NUMBNESS? NO . GASTROENTEROLOGY: ANY NEW CHANGE IN BOWEL CONTROL? NO . GENITOURINARY: ANY NEW CHANGE IN BLADDER CONTROL? NO . IS THERE A CHANCE YOU COULD BE ? NO . HEMATOLOGY/LYMPH: DO YOU TAKE ANY BLOOD THINNERS? (FOR EXAMPLE- COUMADIN, PLAVIX, AGGRENOX, PLATEL, PRADAXA, OR XARELTO) NO . WHEN WAS YOUR LAST DOSE? DATE: TIME: . NEUROLOGY: HAVE YOU FALLEN IN THE PAST 12 MONTHS? NO . ANY NEW EXTREMITY NUMBNESS OR WEAKNESS? NO . CARDIOLOGY: DO YOU HAVE A PACEMAKER OR DEFIBRILLATOR? NO . RESPIRATORY: HAVE YOU BEEN SICK IN THE PAST WEEK? YES, SINUSITIS, SEEN AT URGENT CARE, NO ABX GIVEN, TAKING VENTOLIN AND MUCINEX WHICH IS HELPING . FEVER NO . FLU LIKE SYMPTOMS? NO . COUGH NO . INTEGUMENTARY: DO YOU HAVE ANY RASHES OR OPEN SORES? NO . ALLERGIC/IMMUNO: ARE YOU ALLERGIC TO IV DYE? NO . ANY NEW ALLERGIES? NO . PSYCHIATRIC: DO YOU HAVE THOUGHTS OF HURTING YOURSELF OR SOMEONE ELSE? NO . ARE YOU ABUSED, NEGLECTED, OR IN AN UNSAFE ENVIRONMENT? NO . ENDOCRINOLOGY: ARE YOU DIABETIC? NO . OTHER: DO YOU NEED ANY PRESCRIPTIONS? YES, SOMA . IF YES, PLEASE LIST: ____ . ANY NEW PROBLEMS WITH YOUR MEDICATIONS? NO . WHEN DID YOU LAST EAT? ____ . WHEN DID YOU LAST DRINK? ____ . WHAT DID YOU LAST DRINK? ____ . NAME OF PERSON DRIVING YOU HOME? ____ . DO YOU HAVE ANY OTHER QUESTIONS OR CONCERNS NO . EXAMINATION GENERAL EXAMINATION: TELEMEDICINE USING ZOOM APPLICATION. PATIENT IS ALERT O X 3 AND COOPERATIVE. MRI OF THE LUMBAR SPINE DONE ON 09/04/2016 SHOWS FACET ARTHROPATHY CHANGES. 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 ALMONTE'S PAIN MANAGEMENT CASE. DUE TO THE SACROILIAC JOINT DYSFUNCTION, I WOULD LIKE TO MOVE FORWARD WITH A BILATERAL SACROILIAC JOINT BLOCK AT THIS TIME. WE DISCUSSED THE BENEFITS, RISKS, AND ALTERNATIVES OF THE INJECTION AND THE PATIENT WOULD LIKE TO PROCEED. WE DISCUSSED THE CONCERNS OF STEROIDS POTENTIALLY CAUSING IMMUNOSUPPRESSION SHORT-TERM AND FURTHER COMPLICATIONS IF THEY COME IN CONTACT WITH COVID-19, SUCH WORSE SYMPTOMS OR . THE PATIENT UNDERSTANDS, WOULD LIKE TO PROCEED WITH THE PROCEDURE, AND AGREES HE/SHE WILL BE CAREFUL BY SELF ISOLATING FOR A WEEK OR MORE. I DISCUSSED WITH THE PATIENT ABOUT REPLACING KENALOG WITH DEXAMETHASONE, WHICH IS A LESS POTENT STEROID, TO LESSEN THE RISK OF IMMUNOSUPPRESSION. THE PATIENT AGREED ON HAVING BEING TESTED FOR COVID-19 BEFORE THE PROCEDURE. THE PATIENT WILL CONTINUE WITH HER CURRENT MEDICATION REGIMEN TO AID IN PAIN RELIEF. THE PATIENT WILL FOLLOW UP IN SEVERAL WEEKS AFTER HER PROCEDURE TO SEE HOW IT IS HELPING WITH HER PAIN. INSTRUCTIONS WERE GIVEN, QUESTIONS WERE ANSWERED, PATIENT REPORTS UNDERSTANDING AND AGREES WITH THE PLAN. I, CYRUS PALMER, DOCUMENTED THE ABOVE INFORMATION ACTING A SCRIBE FOR DR. ZEPEDA. I HAVE REVIEWED THE ABOVE DOCUMENT, WRITTEN BY CYRUS NUÑEZ AND I VERIFY THAT IT IS ACCURATE. . DISPOSITION & COMMUNICATION FOLLOW UP 1 WEEK (REASON: VASQUEZ SIJ- PLEASE BE SURE AUTH DONE IN DECEMBER IS STILL ACTIVE/GOOD. THANK YOU) ELECTRONICALLY SIGNED BY HARRISON ZEPEDA MD, MD ON 02/07/2020 AT 12:57 PM EDT DISCLAIMER : THIS IS A VISIT SUMMARY EXTRACTED FROM THE [employer] CHART. IT IS NOT A COPY OF THE [employer] PROGRESS NOTE. MTDD
== END ==
LOC: M PAIN 14:00
PROVIDERS: ATTEND Anesthesiology
DX: M46.1 Sacroiliitis, not elsewhere classified (principal); M53.3 Sacrococcygeal disorders, not elsewhere classified; F17.210 Nicotine dependence, cigarettes, uncomplicated; Z79.899 Other long term (current) drug therapy; Z88.5 Allergy status to narcotic agent; Z88.8 Allergy status to other drugs, medicaments and biological substances; Z91.040 Latex allergy status; Z98.84 Bariatric surgery status

== ENCOUNTER → 2020-02-05 | Outpatient (CLI) | payer OTHER | LOC: M LABSMTC 08:57 | PROVIDERS: ATTEND Anesthesiology | DX: Z01.818 Encounter for other preprocedural examination (principal); Z11.59 Encounter for screening for other viral diseases ==

== ENCOUNTER → 2020-02-08 | Outpatient (CLI) | payer OTHER ==
[~2020-02-08] MED LIST changes: +BUPIVACAINE HCL 0.25% 30ML VIAL As Ordered ONE; +ISOVUE-M 300 61% 15ML VIAL As Ordered ONE; +LIDOCAINE 1% SDV 30ML VIAL As Ordered ONE; -MAPA325T2 PO; +MAPA325T8 PO; +dexameTHASONE 10MG/1ML VIAL PRES.FREE (J1100 PER 1MG) As Ordered ONE; +diazePAM 5 MG TAB As Ordered ONE; +diphenhydrAMINE 25MG CAP As Ordered ONE; +oxyCODONE 5MG TAB As Ordered ONE
--- NOTE | 2020-02-08 15:44 | REP ---
C-ARM VIEWS SACROILIAC JOINTS: CLINICAL HISTORY: Pain. Multiple views of bilateral sacroiliac joints performed during injections by Dr. Castillo. Needle is seen along each sacroiliac joint. 16 seconds fluoroscopy time utilized. Electronically Signed by Chava Mendes MD 02/08/2020 03:56 P
--- NOTE | 2020-02-10 00:08 | ECWPNPC ---
PATIENT NAME: ADELA ALMONTE : 1980 GENDER: FEMALE VISIT DATE: 02/08/2020 DISCHARGE DATE: 02/08/20 1529 VISIT LOCKED DATE TIME: PHYSICIAN: HARRISON ZEPEDA MD RESOURCE: HARRISON ZEPEDA MD REASON FOR APPOINTMENT 1. SULAIMAN PEREZ HISTORY OF PRESENT ILLNESS HISTORY OF PRESENT ILLNESS: PAIN THE PATIENT DESCRIBES THE PAIN... FALL RISK SCREENING: SCREENING :NO FALLS REPORTED IN THE LAST YEAR CURRENT MEDICATIONS TAKING VYVANSE 70 MG CAPSULE (SCHEDULE II DRUG) TAKE ONE CAPSULE BY MOUTH EVERY MORNING - MAXIMUM DAILY DOSE ONE CAPSULE ORAL , NOTES: 02/08/20 AM TAKING TOPIRAMATE 50 MG TABLET TAKE ONE TABLET BY MOUTH TWICE DAILY BOTTLE ORAL , NOTES: 02/08/20 AM TAKING BUSPIRONE HCL 30 MG TABLET TAKE ONE TABLET BY MOUTH @6AM AND TAKE ONE TABLET BY MOUTH @8PM ORAL , NOTES: 02/08/20 TAKING DICYCLOMINE HCL 20 MG TABLET TAKE ONE TABLET BY MOUTH @6AM AND TAKE ONE TABLET @NOON AND TAKE ONE TABLET @8PM ( NEEDED FOR PAIN) ORAL , NOTES: 02/08/20 AM TAKING FIBER LAXATIVE 0.52 GM CAPSULE TAKE TWO CAPSULES BY MOUTH @6AM AND TAKE TWO CAPSULES @8PM ORAL , NOTES: 02/08/20 AM TAKING NIFEDIPINE 20 MG CAPSULE TAKE ONE CAPSULE BY MOUTH @6AM ORAL , NOTES: 02/08/20 TAKING PANTOPRAZOLE SODIUM 40 MG TABLET DELAYED RELEASE TAKE ONE TABLET BY MOUTH @6AM ORAL , NOTES: 02/08/20 AM TAKING LOSARTAN POTASSIUM 25 MG TABLET TAKE ONE TABLET BY MOUTH @6AM ORAL , NOTES: 02/08/20 AM TAKING MOVANTIK 25 MG TABLET TAKE ONE TABLET BY MOUTH @6AM ORAL , NOTES: 02/08/20 AM TAKING PROMETHAZINE HCL 25 MG TABLET TAKE ONE TABLET BY MOUTH @6AM AND TAKE ONE TABLET BY MOUTH @NOON AND TAKE ONE TABLET BY MOUTH @6PM AND TAKE ONE TABLET BY MOUTH @8PM ORAL , NOTES: 02/08/20 AM TAKING PRAZOSIN HCL 1 MG CAPSULE TAKE ONE CAPSULE BY MOUTH @8PM ORAL , NOTES: 02/07/20 TAKING ESTRADIOL 0.025 MG/24HR PATCH WEEKLY APPLY ONE PATCH TOPICALLY ONCE PER WEEK TRANSDERMAL , NOTES: FRIDAY TAKING CETIRIZINE HCL 10 MG TABLET TAKE ONE TABLET BY MOUTH @6AM ( NEEDED) ORAL , NOTES: 02/08/20 AM TAKING AIMOVIG 70 MG/ML SOLUTION AUTO-INJECTOR USE ONCE PER MONTH SUBCUTANEOUS , NOTES: 02/06/20 TAKING VRAYLAR 4.5 MG CAPSULE TAKE ONE CAPSULE BY MOUTH AT BEDTIME ORALLY , NOTES: 02/07/20 TAKING LIDOCAINE HCL 3 % CREAM APPLY TO ABDOMEN 30 MINUTES PRIOR TO INFUSION EXTERNAL , NOTES: LAST FRIDAY TAKING FAMOTIDINE 40 MG TABLET TAKE ONE TABLET BY MOUTH @8PM ORAL , NOTES: 02/07/20 TAKING IMITREX , NOTES: NONE LATELY TAKING ALBUTEROL SULFATE (2.5 MG/3ML) 0.083% NEBULIZATION SOLUTION 3 ML NEEDED INHALATION EVERY 8 HRS, NOTES: NONE LATELY TAKING CUVITRU 4 GM/20ML SOLUTION DIRECTED SUBCUTANEOUS , NOTES: LAST FRIDAY TAKING CAMPRAL DOSE THOR 333 MG TABLET DELAYED RELEASE 2 TABLETS ORALLY THREE TIMES A DAY, NOTES: 2 WEEKS AGO TAKING BOTOX 100 UNIT SOLUTION RECONSTITUTED DIRECTED INTRAMUSCULAR , NOTES: 12/20/19 TAKING PHENAZOPYRIDINE HCL 100 MG TABLET 1 TABLET AFTER MEALS ORALLY THREE TIMES DAILY NEEDED, NOTES: 3 WEEKS AGO TAKING BELBUCA 150 MCG FILM (SCHEDULE III DRUG) APPLY ONE FILM TO THE GUM EVERY 12 HOURS - MAXIMUM DAILY DOSE TWO FILMS BUCCAL EVERY 12 HRS, NOTES: 02/08/20 AM TAKING ACETAMINOPHEN 500 MG CAPSULE 1 CAPSULES NEEDED ORALLY EVERY 6 HRS PRN, NOTES: 2 DAYS AGO TAKING IBUPROFEN 800 MG TABLET 1 TABLET WITH FOOD OR MILK NEEDED ORALLY THREE TIMES A DAY NEEDED FOR SEVERE HEADACHES, NOTES: NONE LATELY TAKING CHANTIX 1 MG 1 TAB ORALLY BID, NOTES: 02/08/20 AM TAKING VENTOLIN HFA 90 MCG/ACT AEROSOL SOLUTION 1 PUFF NEEDED INHALATION EVERY 4 HRS, NOTES: LAST WEEK TAKING AMMONIUM LACTATE 10 % LOTION 1 APPLICATION TO AFFECTED AREA EXTERNALLY TWICE A DAY, NOTES: HAS NOT USED IN A WHILE TAKING CARISOPRODOL 350 MG TABLET 1 TABLET NEEDED ORALLY FOR SPASMS AND PAIN EVERY 12 HOURS NEEDED MDD2, NOTES: 02/08/20 AM TAKING PREGABALIN 200 MG CAPSULE 1 CAPSULE ORAL THREE TIMES DAILY, NOTES: 02/08/20 AM TAKING FUROSEMIDE 20 MG TABLET TAKE ONE TABLET BY MOUTH @6AM ORAL , NOTES: 02/08/20 AM TAKING AZELASTINE HCL 137 MCG/SPRAY SOLUTION 1 PUFF IN EACH NOSTRIL NASALLY TWICE A DAY NOT-TAKING TRULANCE 3 MG TABLET TAKE ONE TABLET BY MOUTH ONCE A DAY ORAL NOT-TAKING FLUCONAZOLE 150 MG TABLET TAKE ONE TABLET BY MOUTH NOW, TAKE ONE TABLET IN 72 HOURS IF NECESSARY ORAL NOT-TAKING FLUTICASONE PROPIONATE 50 MCG/ACT SUSPENSION 1 SPRAY IN EACH NOSTRIL NASALLY ONCE A DAY MEDICATION LIST REVIEWED AND RECONCILED WITH THE PATIENT PAST MEDICAL HISTORY SURGICAL MENOPAUSE S/P ELIA & BSO 2010 CHRONIC NECK/MID/LOW BACK PAIN PEPTIC ULCER DISEASE, S/P GASTRIC BYPASS - ON PROTONIX AND CARAFATE BY DR. MILLER BIPOLAR, ANXIETY, DEPRESSION - FOLLWS WITH DR. OTERO ALCOHOLISM MIGRAINE HEADACHES TOBACCO USE ADD CHRONIC RHINITIS/SINUSITIS RAYNAUD''S SYNDROME COMMON VARIABLE IMMUNO DEFICIENCY DISEASE ASTHMA HEART MURMUR - ECHO 10/2017 BORDERLINE LVH, MILD LAE, SUBTLE AV SCLEROSIS, AORTIC SCLEROSIS, MILD AR, MILD MR SLEEP APNEA WITH BIPAP S/P GASTRIC BYPASS FAINTING SPELLS CHRONIC PNEUMONIA KIDNEY STONES DRUG ABUSE IN REMISSION ALLERGIES MORPHINE SULFATE: TACHYCARDIA DILAUDID: TACHYCARDIA REGLAN: HIVES LAMICTAL: WELTS LATEX GLOVES SURGICAL HISTORY LUMBAR LAMINECTOMY [place] 02/11 BACK SURGERY 1997 LAPAROTOMY X 4...CARTHAGE....DR. CRISTOBAL CHOLECYSTECTOMY 07/13 HYSTERECTOMY, APPENDECTOMY - FOR ENDOMETRIOSIS 12/13 GASTRIC BYPASS (DR. CARTAGENA, [facility]) 01/2012 LAPAROSCOPY AND REMOVAL OF ADHESIONS (DR. BARRERA) 12/2012 CHEST TUBE ENDOSCOPY/COLONOSCOPY BLOOD TRANSFUSION BLADDER REPAIR 10/2016 LAPROSCOPC SURGERY FOR ENDOMETRIOSIS / LYSIS OF ADHESIONS AND SCAR TISSUE (BOWEL NICKED IN OR). 12/19/17 EGD - ESOPHAGEAL PLAQUE - BIOPSY RESULTS NOT SENT TO US (DR. MILLER) 05/2018 REMOVAL CYSTS IN BILATERAL EARS REMOVAL OF NEEDLE FROM RIGHT FOOT FAMILY HISTORY FATHER: ALIVE, DIAGNOSED WITH UNSPECIFIED CEREBRAL ARTERY OCCLUSION WITH CEREBRAL INFARCTION, OTHER MALIGNANT NEOPLASM OF UNSPECIFIED SITE MOTHER: ALIVE, DIABETES, HYPERTENSION, UNSPECIFIED HEART DISEASE SIBLINGS: ALIVE 1 SISTER(S) . FATHER SKIN CANCER\\\\\\\\NSISTER WITH HOSHIMOTO\\\\\\\\\\\\\\'S. DENIES FAMILY HX OF PANCREATIC CANCER, GRANDMOTHER AND FATHER HAD MELANOMA. SOCIAL HISTORY GENERAL: TOBACCO USE ARE YOU A:CURRENT SMOKER ARE YOU INTERESTED IN QUITTING?READY TO QUIT WAITING FOR PRESCRIPTION FOR CHANTIX. COUNSELED THE PATIENT ON TOBACCO USE, CESSATION [id number]/05/2020 HOW MANY CIGARETTES A DAY DO YOU SMOKE?11-20 HOW SOON AFTER YOU WAKE UP DO YOU SMOKE YOUR FIRST CIGARETTE?AFTER 60 MIN HOW OFTEN DO YOU SMOKE CIGARETTES?EVERY DAY PATIENT COUNSELED ON THE DANGERS OF TOBACCO USE AND URGED TO QUIT:12/21/2019 SMOKING CESSATION INFORMATION GIVEN12/21/2019 LATEX QUESTIONNAIRE LATEX ALLERGY : HAVE YOU EVER DEVELOPED ANY TYPE OF REACTION AFTER HANDLING LATEX PRODUCTS SUCH RUBBER GLOVES, CONDOMS, DIAPHRAGMS, BALLOONS, SOCKS, OR UNDERWEAR?YES LATEX ALLERGY : HAVE YOU EVER DEVELOPED ANY TYPE OF REACTION DURING OR AFTER DENTAL APPOINTMENT, VAGINAL/RECTAL EXAMINATION, SURGICAL PROCEDURE, OR ANY OTHER EXPOSURE?YES - PLEASE INDICATE :RUBBER GLOVES, CONDOMS, UNDERWEAR, OTHER (DOCUMENT IN NOTES) BRAS - PLEASE INDICATE :VAGINAL EXAM DATE ASKED : 12/23/2019 LATEX RISK : HAVE YOU EVER HAD ANY DIFFICULTY BREATHING OR HIVES AFTER EATING OR HANDLING ANY FRUITS, OR VEGETABLES; SUCH KIWI, BANANAS, STONE FRUITS, OR CHESTNUTSNO LATEX RISK : DO YOU HAVE A PREVIOUS PERSONAL HISTORY OF MORE THAN NINE SURGERIES, SPINA BIFIDA, OR REPEATED CATHERIZATIONS? YES - PLEASE INDICATE : > 9 SURGERIES LATEX RISK : ARE YOU FREQUENTLY EXPOSED TO LATEX PRODUCTS IN YOUR OCCUPATION?NO LUNG CANCER SCREENING SMOKING STATUS:CURRENT SMOKER BMI CARE GOAL FOLLOW-UP ABOVE NORMAL BMI FOLLOW-UPDIETARY MANAGEMENT EDUCATION, GUIDANCE, AND COUNSELING, DIETARY NEEDS EDUCATION, EXERCISE PROMOTION: STRENGTH TRAINING ALCOHOL SCREENING DID YOU HAVE A DRINK CONTAINING ALCOHOL IN THE PAST YEAR?YES HOW OFTEN DID YOU HAVE SIX OR MORE DRINKS ON ONE OCCASION IN THE PAST YEAR?NEVER (0 POINTS) HOW MANY DRINKS DID YOU HAVE ON A TYPICAL DAY WHEN YOU WERE DRINKING IN THE PAST YEAR?1 OR 2 (0 POINTS) HOW OFTEN DID YOU HAVE A DRINK CONTAINING ALCOHOL IN THE PAST YEAR?TWO TO THREE TIMES PER WEEK (3 POINTS) POINTS3 INTERPRETATIONPOSITIVE RECREATIONAL DRUG USE DRUG USE?NO CAFFEINE CAFFEINE USE?YES 6-8 CUPS COFFEE DAILY, SODA ON OCCASIONS SEXUAL HX HAD SEX IN THE LAST 12 MONTHS (VAGINAL, ORAL, OR ANAL)?NO LMP:2009 HAVE YOU EVER HAD AN STD?NO HIV / HEP-C SCREENING HIV TEST OFFERED TO PATIENT:YES DATE OFFERED:03/13/2017 TEST ACCEPTED:NO HEP-C TEST OFFERED TO PATIENT:NO REASON:PATIENT DECLINED [id number] LANGUAGE LANGUAGES SPOKEN:SETSWANA EDUCATION LEVEL OF EDUCATION:NOT FINISHED COLLEGE LEARNING BARRIERS / SPECIAL NEEDS CHANGE FROM LAST VISIT?NO 10/07/19 BARRIERS TO LEARNING?NO HEARING IMPAIRED?YES VISION IMPAIRED?YES COGNITIVELY IMPAIRED?NO :CORRECTIVE LENSES READINESS TO LEARN?YES LEARNING PREFERENCES?NO LEARNING CAPABILITIES PRESENT?YES EMOTIONAL BARRIERS?NO SPECIAL DEVICES?NO LEG BREAKER NEEDED?NO DOMESTIC VIOLENCE DO YOU FEEL SAFE IN YOUR ENVIRONMENT?YES OCCUPATION: UNEMPLOYED. DIET: REGULAR. EXERCISE: NO REGULAR EXERCISE. MARITAL STATUS: SINGLE. NEW PATIENT PAIN DIARY TODAY'S VISIT 02/08/20 PATIENT DESCRIBES PAIN :ACHING, HAVE IT ALL THE TIME, SHARP, STABBING, TENDER, THROBBING, SORE, SHOOTING FROM 0-10, WHAT LEVEL IS YOUR PAIN TODAY?8 PRECIPITATING FACTORS EVERYTHING ALLEVIATING FACTORS HEAT/ICE, MEDS IMPACT ON FUNCTION YES PAIN CLINIC PFS, CLERGY, PUBLIC HEALTH REFERRALS PFS REFERRAL NEEDED?NO CLERGY REFERRAL NEEDED?NO PUBLIC HEALTH REFERRAL NEEDED?NO WAS THE PROVIDER NOTIFIED OF ANY PERTINENT INFO?YES N/A HAS THE PATIENT BEEN EDUCATED REGARDING HIS/HER PLAN OF CARE?YES HAS THE PATIENT BEEN EDUCATED REGARDING PAIN, THE RISK FOR PAIN, THE IMPORTANCE OF EFFECTIVE PAIN MANAGEMENT, AND THE PAIN ASSESSMENT PROCESS?YES ADVANCE DIRECTIVE ADVANCE DIRECTIVE DISCUSSED WITH PATIENT:YES PT DOES NOT HAVE ANY ADVANCED DIREDCTIVES AND SHE DECLINES INFORMATION ON HCP AT THIS TIME. HOSPITALIZATION/MAJOR DIAGNOSTIC PROCEDURE SURGERY RELATED [facility] ([facility]) 05/2012 ADMITTED TO [facility] 12/2015 [facility] - RUPTURED BLADDER 10/2016 [facility] 2 DAY HOSPITAL STAY DUE TO NICKED BOWEL 12/19/2017 PNEUMONIA 2015 & 2018 REHAB 2014 REVIEW OF SYSTEMS REVIEWED BY: PROVIDER: HARRISON ZEPEDA MD . CONSTITUTIONAL: ANY CHANGE IN YOUR MEDICAL CONDITION? NO . CHILLS NO . FEVER NO . INFECTION: DO YOU HAVE NEW INFECTIONS? NO . DO YOU HAVE HISTORY OF MRSA? NO . MUSCULOSKELETAL: ANY NEW PATTERNS OF PAIN OR NUMBNESS? NO . GASTROENTEROLOGY: ANY NEW CHANGE IN BOWEL CONTROL? NO . GENITOURINARY: ANY NEW CHANGE IN BLADDER CONTROL? NO . IS THERE A CHANCE YOU COULD BE ? NO . HEMATOLOGY/LYMPH: DO YOU TAKE ANY BLOOD THINNERS? (FOR EXAMPLE- COUMADIN, PLAVIX, AGGRENOX, PLATEL, PRADAXA, OR XARELTO) NO . WHEN WAS YOUR LAST DOSE? DATE: TIME: . NEUROLOGY: HAVE YOU FALLEN IN THE PAST 12 MONTHS? NO . ANY NEW EXTREMITY NUMBNESS OR WEAKNESS? NO . CARDIOLOGY: DO YOU HAVE A PACEMAKER OR DEFIBRILLATOR? NO . RESPIRATORY: HAVE YOU BEEN SICK IN THE PAST WEEK? NO . FEVER NO . FLU LIKE SYMPTOMS? NO . COUGH NO . INTEGUMENTARY: DO YOU HAVE ANY RASHES OR OPEN SORES? NO . ALLERGIC/IMMUNO: ARE YOU ALLERGIC TO IV DYE? NO . ANY NEW ALLERGIES? NO . PSYCHIATRIC: DO YOU HAVE THOUGHTS OF HURTING YOURSELF OR SOMEONE ELSE? NO . ARE YOU ABUSED, NEGLECTED, OR IN AN UNSAFE ENVIRONMENT? NO . ENDOCRINOLOGY: ARE YOU DIABETIC? NO . OTHER: DO YOU NEED ANY PRESCRIPTIONS? NO . IF YES, PLEASE LIST: ____ . ANY NEW PROBLEMS WITH YOUR MEDICATIONS? NO . WHEN DID YOU LAST EAT? 02/07/20 . WHEN DID YOU LAST DRINK? 02/08/20 AM . WHAT DID YOU LAST DRINK? WATER . NAME OF PERSON DRIVING YOU HOME? MOM . DO YOU HAVE ANY OTHER QUESTIONS OR CONCERNS NO . VITAL SIGNS WT 200 LBS, HT 67", BMI 31.32 INDEX, BP 128/77 MM HG, HR 116 /MIN, RR 18 /MIN, TEMP 96.0 F, OXYGEN SAT % 99%, SAFE IN ENV? (Y/N) Y, NA INITIALS AW 1254, REVIEWED BY: EM. 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 HARRISON ZEPEDA FOOD STOREROOM CLERK NONE ANESTHESIA LOCAL PRE PROCEDURE NOTE PATIENT WITH HISTORY OF CHRONIC LOW BACK PAIN. I EVALUATED THE PATIENT AND REVIEWED THE CHART. I WENT OVER THE RISKS, ALTERNATIVES, AND BENEFITS ASSOCIATED WITH THIS PROCEDURE. I DISCUSSED WITH THE PATIENT THAT THE USE OF STEROIDS MAY CONTRIBUTE TO IMMUNOSUPPRESSION OF HER BODY AGAINST INFECTIONS SUCH THE DELONG VIRUS, COVID-19. SHE IS AWARE OF THE POTENTIAL COMPLICATIONS ASSOCIATED WITH AN INFECTION OF THIS VIRUS INCLUDING . THE PATIENT WOULD LIKE TO PROCEED AND GAVE CONSENT TO PERFORM THE PROCEDURE. THE PATIENT DENIES UNEXPLAINABLE WEIGHT LOSS, FEVER, CHILLS, OR NEW CHANGES IN URINARY OR BOWEL CONTROL. THE PATIENT IS COVID-19 NEGATIVE DESCRIPTION OF PROCEDURE THE PATIENT WAS BROUGHT TO THE PROCEDURE ROOM AND PLACED IN THE PRONE POSITION. THE LUMBOSACRAL AREA WAS CLEANED WITH CHLORAPREP SOLUTION AND DRAPED ASEPTICALLY. THE PROCEDURE WAS DONE UNDER STERILE CONDITIONS. I CHECKED LATERALITY AND THE LEVEL WHERE THE PROCEDURE WAS GOING TO BE PERFORMED WITH THE PATIENT AND THE SUPPORTING STAFF AT THE MOMENT OF THE TIME OUT IN THE PROCEDURE ROOM. UNDER FLUOROSCOPIC GUIDANCE, TARGET POINT WAS SELECTED AT THE LOWER BORDER OF THE BILATERAL SACROILIAC JOINTS. TARGET POINT WAS SELECTED AFTER MEDIAL ROTATION AND TILT OF THE MAGNIFIER OF THE C-ARM. LIDOCAINE WAS USED TO NUMB THE SKIN AND SUBCUTANEOUS TISSUE BELOW IT. A SPINAL NEEDLE, 22-GAUGE, WAS ADVANCED UNDER FLUOROSCOPIC GUIDANCE AND FOLLOWING PATIENT FEEDBACK UNTIL THE TARGET AREA WAS TOUCHED. THE POSITION OF THE NEEDLE WAS VERIFIED WITH AP AND LATERAL VIEWS. AFTER PROPER POSITION OF THE NEEDLE WAS ACHIEVED, ISOVUE M DYE 30%, 0.25 ML, WAS INJECTED SHOWING SPREAD OF THE DYE. THEN, A SOLUTION OF 10 MG OF DEXAMETHASONE WAS INJECTED IN EACH JOINT WITH 3 ML OF BUPIVACAINE 0.125%. THERE WAS NO EVIDENCE OF BLOOD, PARESTHESIA OR CEREBROSPINAL FLUID DURING THE PROCEDURE. THE PATIENT WAS SENT TO THE RECOVERY ROOM. THE PATIENT WAS MOVING THE EXTREMITIES AND DOING WELL. THERE WAS NO COMPLICATION DURING THE PROCEDURE. FLUOROSCOPY TIME WAS 16 SECONDS POST PROCEDURE NOTE THE PATIENT WILL BE SEEN IN A FOLLOW UP IN THE NEXT FEW WEEKS. I AM LOOKING FOR LONG LASTING PAIN RELIEF FOR THE PATIENT WITH THIS INJECTION. INSTRUCTIONS WERE GIVEN, QUESTIONS WERE ANSWERED, AND THE PATIENT EXPRESSED UNDERSTANDING AND AGREES WITH THE PLAN. I INSTRUCTED THE PATIENT TO STAY HOME, IF POSSIBLE, FOR A WEEK DUE TO COVID-19. I, SANJUANA SERNA, DOCUMENTED THE ABOVE INFORMATION ACTING A SCRIBE FOR DR. ZEPEDA. I HAVE REVIEWED THE ABOVE DOCUMENT, WRITTEN BY SAVANNAH TELLES, AND I VERIFY THAT IT IS ACCURATE PROCEDURE CODES 6045F RADXPS IN END [id number] PXD [id number] INJECT SACROILIAC JOINT, MODIFIERS: 50 DISPOSITION & COMMUNICATION FOLLOW UP F/UP MARKETING STRATEGY ANALYST (REASON: POST-PROCEDURE FOLLOWUP-LOW BACK PAIN) ELECTRONICALLY SIGNED BY HARRISON ZEPEDA MD, MD ON 02/09/2020 AT 10:23 AM EDT DISCLAIMER : THIS IS A VISIT SUMMARY EXTRACTED FROM THE [employer] CHART. IT IS NOT A COPY OF THE [employer] PROGRESS NOTE. NENITAD
== END ==
LOC: M PAIN 13:15
PROVIDERS: ATTEND Anesthesiology
DX: M46.1 Sacroiliitis, not elsewhere classified (principal); M53.3 Sacrococcygeal disorders, not elsewhere classified; F17.210 Nicotine dependence, cigarettes, uncomplicated; Z79.899 Other long term (current) drug therapy; Z88.5 Allergy status to narcotic agent; Z88.8 Allergy status to other drugs, medicaments and biological substances; Z91.040 Latex allergy status
CPT/HCPCS: 27096; J1100; Q9967

== ENCOUNTER → 2020-02-14 | Outpatient (CLI) | payer OTHER ==
[~2020-02-14] MED LIST changes: -BUPIVACAINE HCL 0.25% 30ML VIAL As Ordered ONE; -ISOVUE-M 300 61% 15ML VIAL As Ordered ONE; -LIDOCAINE 1% SDV 30ML VIAL As Ordered ONE; -dexameTHASONE 10MG/1ML VIAL PRES.FREE (J1100 PER 1MG) As Ordered ONE; -diazePAM 5 MG TAB As Ordered ONE; -diphenhydrAMINE 25MG CAP As Ordered ONE; -oxyCODONE 5MG TAB As Ordered ONE
--- NOTE | 2020-02-14 14:13 | REP ---
DIGITAL DIAGNOSTIC BILATERAL MAMMOGRAPHY WITH CAD, 3D TOMOGRAPHY, AND FOCUSED BILATERAL BREAST SONOGRAPHY: HISTORY: Inferolateral quadrant pain left breast. Greenish nipple discharge right breast. No comparison mammography is available. MAMMOGRAPHIC FINDINGS: Breast parenchyma is predominately fat replaced. The Volpara volumetric breast density category is: A . No dominant density is seen in the inferolateral quadrant left breast through the subareolar region of the right breast. No mass lesion is seen on either side mammographically. No architectural distortion, microcalcification or worrisome skin change is seen. 3D tomography images show no additional abnormality. SONOGRAPHIC FINDINGS: Retroareolar scanning on the right shows no evidence of ductal dilation, mass, or acoustic shadowing. Sonographic scanning through the inferolateral quadrant of the left breast from 3-o'clock to 6-o'clock position shows normal stromal elements. No mass, cyst or architectural distortion is seen. IMPRESSION: BIRADS 1: BI-RADS/ACR category 1 mammogram. Negative Mammogram. BIRADS category 1 negative breast imaging findings. Clinical followup is advised. This mammogram was interpreted with the aid of an FDA-approved computer-aided detection system. The patient states she had a clinical breast exam in February 2020. The patient letter being requested is M2. This patient's estimated Tyrer-Cuzick lifetime risk assessment for breast cancer is 8.4 %.
== END ==
LOC: M WHC 08:59
PROVIDERS: ATTEND Family Medicine
DX: N64.4 Mastodynia (principal)
CPT/HCPCS: 76642; 77066; G0279

== ENCOUNTER → 2020-02-23 | Outpatient (CLI) | payer OTHER ==
--- NOTE | 2020-02-25 02:44 | ECWPNPC ---
PATIENT NAME: ADELA ALMONTE : 1980 GENDER: FEMALE VISIT DATE: 02/23/2020 DISCHARGE DATE: 02/23/20 1051 VISIT LOCKED DATE TIME: PHYSICIAN: RAVEN CORDON RESOURCE: RAVEN CORDON REASON FOR APPOINTMENT 1. POST PROC-PT REQUESTS IN OFFICE HISTORY OF PRESENT ILLNESS HISTORY OF PRESENT ILLNESS: PAIN THE PATIENT DESCRIBES THE PAINDURING THE LAST MONTH SEVERITY - PAIN SCORE OF5/10 SIJ PROCEDURE HELPED LOCATIONSLOWER BACK QUALITYACHING , BURNING, SHARP, SHOOTING DURATIONCONTINUOUS, CONSTANT, ALL DAY PAIN IS INCREASED BY:ACTIVITIES, PROLONGED STANDING PAIN IS DECREASED BY:USE OF PAIN MEDICATIONS 40-YEAR-OLD FEMALE IN FOR POST SIJ FOLLOW-UP. SHE RATES HER PAIN PREPROCEDURE AT AN 8 OUT OF 10 AND POST PROCEDURE AT A 5 OUT OF 10. SHE FEELS THE PROCEDURE HELPED OVERALL AND CONTINUES TO HELP HER TODAY. SHE RATES HER PAIN CURRENTLY AT A 5 OUT OF 10 AND DESCRIBES IT ACHING, BURNING, SHARP, AND SHOOTING. MOST HER PAIN CURRENTLY IS LOCATED IN HER LOW BACK. FALL RISK SCREENING: SCREENING :NO FALLS REPORTED IN THE LAST YEAR CURRENT MEDICATIONS TAKING VYVANSE 70 MG CAPSULE (SCHEDULE II DRUG) TAKE ONE CAPSULE BY MOUTH EVERY MORNING - MAXIMUM DAILY DOSE ONE CAPSULE ORAL , NOTES: 02/08/20 AM TAKING BUSPIRONE HCL 30 MG TABLET TAKE ONE TABLET BY MOUTH @6AM AND TAKE ONE TABLET BY MOUTH @8PM ORAL , NOTES: 02/08/20 AM TAKING TOPIRAMATE 50 MG TABLET TAKE ONE TABLET BY MOUTH TWICE DAILY BOTTLE ORAL , NOTES: 02/08/20 AM TAKING PRAZOSIN HCL 1 MG CAPSULE TAKE ONE CAPSULE BY MOUTH @8PM ORAL , NOTES: 02/07/20 TAKING IMITREX , NOTES: NONE LATELY TAKING FAMOTIDINE 40 MG TABLET TAKE ONE TABLET BY MOUTH @8PM ORAL , NOTES: 02/07/20 TAKING AIMOVIG 70 MG/ML SOLUTION AUTO-INJECTOR USE ONCE PER MONTH SUBCUTANEOUS , NOTES: 02/06/20 TAKING ESTRADIOL 0.025 MG/24HR PATCH WEEKLY APPLY ONE PATCH TOPICALLY ONCE PER WEEK TRANSDERMAL , NOTES: FRIDAY TAKING PANTOPRAZOLE SODIUM 40 MG TABLET DELAYED RELEASE TAKE ONE TABLET BY MOUTH @6AM ORAL , NOTES: 02/08/20 AM TAKING NIFEDIPINE 20 MG CAPSULE TAKE ONE CAPSULE BY MOUTH @6AM ORAL , NOTES: 02/08/20 AM TAKING FUROSEMIDE 20 MG TABLET TAKE ONE TABLET BY MOUTH @6AM ORAL , NOTES: 02/08/20 TAKING DICYCLOMINE HCL 20 MG TABLET TAKE ONE TABLET BY MOUTH @6AM AND TAKE ONE TABLET @NOON AND TAKE ONE TABLET @8PM ( NEEDED FOR PAIN) ORAL , NOTES: 02/08/20 TAKING PROMETHAZINE HCL 25 MG TABLET TAKE ONE TABLET BY MOUTH @6AM AND TAKE ONE TABLET BY MOUTH @NOON AND TAKE ONE TABLET BY MOUTH @6PM AND TAKE ONE TABLET BY MOUTH @8PM ORAL , NOTES: 02/08/20 TAKING MOVANTIK 25 MG TABLET TAKE ONE TABLET BY MOUTH @6AM ORAL , NOTES: 02/08/20 TAKING FIBER LAXATIVE 0.52 GM CAPSULE TAKE TWO CAPSULES BY MOUTH @6AM AND TAKE TWO CAPSULES @8PM ORAL , NOTES: 02/08/20 TAKING CETIRIZINE HCL 10 MG TABLET TAKE ONE TABLET BY MOUTH @6AM ( NEEDED) ORAL , NOTES: 02/08/20 TAKING CUVITRU 4 GM/20ML SOLUTION DIRECTED SUBCUTANEOUS , NOTES: LAST FRIDAY TAKING LIDOCAINE HCL 3 % CREAM APPLY TO ABDOMEN 30 MINUTES PRIOR TO INFUSION EXTERNAL , NOTES: LAST FRIDAY TAKING VRAYLAR 4.5 MG CAPSULE TAKE ONE CAPSULE BY MOUTH AT BEDTIME ORALLY , NOTES: 02/07/20 TAKING CAMPRAL DOSE THOR 333 MG TABLET DELAYED RELEASE 2 TABLETS ORALLY THREE TIMES A DAY, NOTES: 2 WEEKS AGO TAKING BOTOX 100 UNIT SOLUTION RECONSTITUTED DIRECTED INTRAMUSCULAR , NOTES: 12/20/19 TAKING PREGABALIN 200 MG CAPSULE 1 CAPSULE ORAL THREE TIMES DAILY, NOTES: 02/08/20 TAKING AZELASTINE HCL 137 MCG/SPRAY SOLUTION 1 PUFF IN EACH NOSTRIL NASALLY TWICE A DAY TAKING BELBUCA 150 MCG FILM (SCHEDULE III DRUG) APPLY ONE FILM TO THE GUM EVERY 12 HOURS - MAXIMUM DAILY DOSE TWO FILMS BUCCAL EVERY 12 HRS, NOTES: 02/08/20 TAKING CARISOPRODOL 350 MG TABLET 1 TABLET NEEDED ORALLY FOR SPASMS AND PAIN EVERY 12 HOURS NEEDED MDD2, NOTES: 02/08/20 AM TAKING OSTEO BI-FLEX REGULAR STRENGTH 250-200 MG TABLET 1 TABLET WITH A MEAL ORALLY ONCE A DAY TAKING ALBUTEROL SULFATE (2.5 MG/3ML) 0.083% NEBULIZATION SOLUTION 3 ML NEEDED INHALATION EVERY 8 HRS, NOTES: NONE LATELY TAKING ACETAMINOPHEN 500 MG CAPSULE 1 CAPSULES NEEDED ORALLY EVERY 6 HRS PRN, NOTES: 2 DAYS AGO TAKING CHANTIX 1 MG 1 TAB ORALLY BID, NOTES: 02/08/20 AM TAKING VENTOLIN HFA 90 MCG/ACT AEROSOL SOLUTION 1 PUFF NEEDED INHALATION EVERY 4 HRS, NOTES: LAST WEEK TAKING AMMONIUM LACTATE 10 % LOTION 1 APPLICATION TO AFFECTED AREA EXTERNALLY TWICE A DAY, NOTES: HAS NOT USED IN A WHILE NOT-TAKING FLUTICASONE PROPIONATE 50 MCG/ACT SUSPENSION 1 SPRAY IN EACH NOSTRIL NASALLY ONCE A DAY MEDICATION LIST REVIEWED AND RECONCILED WITH THE PATIENT PAST MEDICAL HISTORY COMMON VARIABLE IMMUNO DEFICIENCY DISEASE HISTORY OF KIDNEY STONES CHRONIC NECK/MID/LOW BACK PAIN - PAIN CENTER CHRONIC OPIOID USE, OPIOID-INDUCED CONSTIPATION PEPTIC ULCER DISEASE, GERD, S/P GASTRIC BYPASS - DR. MILLER BIPOLAR, ANXIETY, DEPRESSION, ADHD - DR. OTERO MIGRAINE HEADACHES - CAREY NEURO, GETS BOTOX INJECTIONS SURGICAL MENOPAUSE S/P ELIA & BSO (2009) FOR ENDOMETRIOSIS; PRESCRIBED ESTRADIOL BY CHRONIC RHINITIS/SINUSITIS, ALLERGIES RAYNAUD'S SYNDROME ASTHMA, JOSEPH ON BIPAP - DR. SAI TIDWELL HISTORY OF IRON-DEFICIENCY ANEMIA TOBACCO USE; SMOKES 15 CIG/DAY HISTORY OF ALCOHOL USE DISORDER; DRINKS 2 DAYS A WEEK HISTORY OF DRUG ABUSE IN REMISSION; USED IV METH AND IV ECSTASY IN 08/2019 HEART MURMUR - ECHO 10/2017 BORDERLINE LVH, MILD LAE, SUBTLE AV SCLEROSIS, AORTIC SCLEROSIS, MILD AR, MILD MR HTN - CANNY ALLERGIES MORPHINE SULFATE: TACHYCARDIA DILAUDID: TACHYCARDIA REGLAN: HIVES LAMICTAL: WELTS LATEX GLOVES SURGICAL HISTORY BACK SURGERY 1997 LAPAROTOMY X 4 FOR ENDOMETRIOSIS AT [facility], DR. CRISTOBAL 200S CHOLECYSTECTOMY 07/2008 LUMBAR LAMINECTOMY, [place] 02/2009 HYSTERECTOMY, APPENDECTOMY - FOR ENDOMETRIOSIS 12/2009 GASTRIC BYPASS (DR. CARTAGENA, [facility]) 01/2012 LAPAROSCOPY AND REMOVAL OF ADHESIONS (DR. BARRERA) 12/2012 CHEST TUBE ENDOSCOPY/COLONOSCOPY BLADDER REPAIR 10/2016 LAPROSCOPC SURGERY FOR ENDOMETRIOSIS / LYSIS OF ADHESIONS AND SCAR TISSUE (BOWEL NICKED IN OR). 12/19/17 EGD - ESOPHAGEAL PLAQUE - BIOPSY RESULTS NOT SENT TO US (DR. MILLER) 05/2018 REMOVAL CYSTS IN BILATERAL EARS REMOVAL OF NEEDLE FROM RIGHT FOOT FAMILY HISTORY FATHER: ALIVE, HAD SKIN CANCER, DIAGNOSED WITH OTHER MALIGNANT NEOPLASM OF UNSPECIFIED SITE, UNSPECIFIED CEREBRAL ARTERY OCCLUSION WITH CEREBRAL INFARCTION MOTHER: ALIVE, DIABETES, HYPERTENSION, UNSPECIFIED HEART DISEASE SIBLINGS: ALIVE, SISTER WITH JUAN'S 1 SISTER(S) . DENIES FAMILY HX OF PANCREATIC CANCER, GRANDMOTHER AND FATHER HAD MELANOMA. SOCIAL HISTORY GENERAL: TOBACCO USE ARE YOU A:CURRENT SMOKER ARE YOU INTERESTED IN QUITTING?READY TO QUIT WAITING FOR PRESCRIPTION FOR CHANTIX. COUNSELED THE PATIENT ON TOBACCO USE, CESSATION [id number]/20/2020 HOW MANY CIGARETTES A DAY DO YOU SMOKE?11-20 HOW SOON AFTER YOU WAKE UP DO YOU SMOKE YOUR FIRST CIGARETTE?AFTER 60 MIN HOW OFTEN DO YOU SMOKE CIGARETTES?EVERY DAY PATIENT COUNSELED ON THE DANGERS OF TOBACCO USE AND URGED TO QUIT:02/23/2020 SMOKING CESSATION INFORMATION GIVEN02/23/2020 LATEX QUESTIONNAIRE LATEX ALLERGY : HAVE YOU EVER DEVELOPED ANY TYPE OF REACTION AFTER HANDLING LATEX PRODUCTS SUCH RUBBER GLOVES, CONDOMS, DIAPHRAGMS, BALLOONS, SOCKS, OR UNDERWEAR?YES LATEX ALLERGY : HAVE YOU EVER DEVELOPED ANY TYPE OF REACTION DURING OR AFTER DENTAL APPOINTMENT, VAGINAL/RECTAL EXAMINATION, SURGICAL PROCEDURE, OR ANY OTHER EXPOSURE?YES - PLEASE INDICATE :RUBBER GLOVES, CONDOMS, UNDERWEAR, OTHER (DOCUMENT IN NOTES) BRAS - PLEASE INDICATE :VAGINAL EXAM DATE ASKED : 12/23/2019 LATEX RISK : HAVE YOU EVER HAD ANY DIFFICULTY BREATHING OR HIVES AFTER EATING OR HANDLING ANY FRUITS, OR VEGETABLES; SUCH KIWI, BANANAS, STONE FRUITS, OR CHESTNUTSNO LATEX RISK : DO YOU HAVE A PREVIOUS PERSONAL HISTORY OF MORE THAN NINE SURGERIES, SPINA BIFIDA, OR REPEATED CATHERIZATIONS? YES - PLEASE INDICATE : > 9 SURGERIES LATEX RISK : ARE YOU FREQUENTLY EXPOSED TO LATEX PRODUCTS IN YOUR OCCUPATION?NO LUNG CANCER SCREENING SMOKING STATUS:CURRENT SMOKER BMI CARE GOAL FOLLOW-UP ABOVE NORMAL BMI FOLLOW-UPDIETARY MANAGEMENT EDUCATION, GUIDANCE, AND COUNSELING, DIETARY NEEDS EDUCATION, EXERCISE PROMOTION: STRENGTH TRAINING ALCOHOL SCREENING DID YOU HAVE A DRINK CONTAINING ALCOHOL IN THE PAST YEAR?YES HOW OFTEN DID YOU HAVE SIX OR MORE DRINKS ON ONE OCCASION IN THE PAST YEAR?NEVER (0 POINTS) HOW MANY DRINKS DID YOU HAVE ON A TYPICAL DAY WHEN YOU WERE DRINKING IN THE PAST YEAR?1 OR 2 (0 POINTS) HOW OFTEN DID YOU HAVE A DRINK CONTAINING ALCOHOL IN THE PAST YEAR?TWO TO THREE TIMES PER WEEK (3 POINTS) POINTS3 INTERPRETATIONPOSITIVE RECREATIONAL DRUG USE DRUG USE?NO CAFFEINE CAFFEINE USE?YES 6-8 CUPS COFFEE DAILY, SODA ON OCCASIONS SEXUAL HX HAD SEX IN THE LAST 12 MONTHS (VAGINAL, ORAL, OR ANAL)?NO LMP:2009 HAVE YOU EVER HAD AN STD?NO HIV / HEP-C SCREENING HIV TEST OFFERED TO PATIENT:YES DATE OFFERED:03/13/2017 TEST ACCEPTED:NO HEP-C TEST OFFERED TO PATIENT:NO REASON:PATIENT DECLINED PROTESTANT [id number] GNOSTICISM LANGUAGE LANGUAGES SPOKEN:BURMESE EDUCATION LEVEL OF EDUCATION:NOT FINISHED COLLEGE LEARNING BARRIERS / SPECIAL NEEDS CHANGE FROM LAST VISIT?NO 10/07/19 BARRIERS TO LEARNING?NO HEARING IMPAIRED?YES VISION IMPAIRED?YES COGNITIVELY IMPAIRED?NO :CORRECTIVE LENSES READINESS TO LEARN?YES LEARNING PREFERENCES?NO LEARNING CAPABILITIES PRESENT?YES EMOTIONAL BARRIERS?NO SPECIAL DEVICES?NO MEDICAID BILLER NEEDED?NO DOMESTIC VIOLENCE DO YOU FEEL SAFE IN YOUR ENVIRONMENT?YES OCCUPATION: UNEMPLOYED. DIET: REGULAR. EXERCISE: NO REGULAR EXERCISE. MARITAL STATUS: SINGLE. NEW PATIENT PAIN DIARY TODAY'S VISIT 02/08/20 PATIENT DESCRIBES PAIN :ACHING, HAVE IT ALL THE TIME, SHARP, STABBING, TENDER, THROBBING, SORE, SHOOTING FROM 0-10, WHAT LEVEL IS YOUR PAIN TODAY?8 PRECIPITATING FACTORS EVERYTHING ALLEVIATING FACTORS HEAT/ICE, MEDS IMPACT ON FUNCTION YES PAIN CLINIC PFS, CLERGY, PUBLIC HEALTH REFERRALS PFS REFERRAL NEEDED?NO CLERGY REFERRAL NEEDED?NO PUBLIC HEALTH REFERRAL NEEDED?NO WAS THE PROVIDER NOTIFIED OF ANY PERTINENT INFO?YES N/A HAS THE PATIENT BEEN EDUCATED REGARDING HIS/HER PLAN OF CARE?YES HAS THE PATIENT BEEN EDUCATED REGARDING PAIN, THE RISK FOR PAIN, THE IMPORTANCE OF EFFECTIVE PAIN MANAGEMENT, AND THE PAIN ASSESSMENT PROCESS?YES ADVANCE DIRECTIVE ADVANCE DIRECTIVE DISCUSSED WITH PATIENT:YES PT DOES NOT HAVE ANY ADVANCED DIREDCTIVES AND SHE DECLINES INFORMATION ON HCP AT THIS TIME. HOSPITALIZATION/MAJOR DIAGNOSTIC PROCEDURE SURGERY RELATED [facility] ([facility] OD) 05/2012 ADMITTED TO [facility] 12/2015 [facility] - [facility]ED BLADDER 10/2016 [facility] 2 DAY HOSPITAL STAY DUE TO NICKED BOWEL 12/19/2017 PNEUMONIA 2015 & 2018 REHAB 2014 REVIEW OF SYSTEMS REVIEWED BY: PROVIDER: ENRIQUETA CALL-Jose Elias . CONSTITUTIONAL: ANY CHANGE IN YOUR MEDICAL CONDITION? NO . CHILLS NO . FEVER NO . INFECTION: DO YOU HAVE NEW INFECTIONS? NO . DO YOU HAVE HISTORY OF MRSA? NO . MUSCULOSKELETAL: ANY NEW PATTERNS OF PAIN OR NUMBNESS? YES, NUMBNESS AND TINGLING ON LEFT SIDE OF LOWER BACK DOWN TO LEG AND UP TO SHOULDER DOWN TO ARM AND INTO FINGERS. . GASTROENTEROLOGY: ANY NEW CHANGE IN BOWEL CONTROL? NO . GENITOURINARY: ANY NEW CHANGE IN BLADDER CONTROL? NO . IS THERE A CHANCE YOU COULD BE ? NO . HEMATOLOGY/LYMPH: DO YOU TAKE ANY BLOOD THINNERS? (FOR EXAMPLE- COUMADIN, PLAVIX, AGGRENOX, PLATEL, PRADAXA, OR XARELTO) NO . WHEN WAS YOUR LAST DOSE? DATE: TIME: . NEUROLOGY: HAVE YOU FALLEN IN THE PAST 12 MONTHS? NO . ANY NEW EXTREMITY NUMBNESS OR WEAKNESS? NO . CARDIOLOGY: DO YOU HAVE A PACEMAKER OR DEFIBRILLATOR? NO . RESPIRATORY: HAVE YOU BEEN SICK IN THE PAST WEEK? NO . FEVER NO . FLU LIKE SYMPTOMS? NO . COUGH YES, PRODUCTIVE, TOTH SPUTUM, TAKING DOXYCYCLINE FROM DR. RICH PCP, 3 DAYS LEFT . INTEGUMENTARY: DO YOU HAVE ANY RASHES OR OPEN SORES? NO . ALLERGIC/IMMUNO: ARE YOU ALLERGIC TO IV DYE? NO . ANY NEW ALLERGIES? NO . PSYCHIATRIC: DO YOU HAVE THOUGHTS OF HURTING YOURSELF OR SOMEONE ELSE? NO . ARE YOU ABUSED, NEGLECTED, OR IN AN UNSAFE ENVIRONMENT? NO . ENDOCRINOLOGY: ARE YOU DIABETIC? NO . OTHER: DO YOU NEED ANY PRESCRIPTIONS? YES, REFILL BELBUCA, LYRICA, SOMA . IF YES, PLEASE LIST: ____ . ANY NEW PROBLEMS WITH YOUR MEDICATIONS? NO . WHEN DID YOU LAST EAT? ____ . WHEN DID YOU LAST DRINK? ____ . WHAT DID YOU LAST DRINK? ____ . NAME OF PERSON DRIVING YOU HOME? ____ . DO YOU HAVE ANY OTHER QUESTIONS OR CONCERNS NO . VITAL SIGNS WT 203.0 LBS, HT 67", BMI 31.79 INDEX, BP 125/73 MM HG, HR 85 /MIN, RR 18 /MIN, TEMP 97.2 F, OXYGEN SAT % 100%, SAFE IN ENV? (Y/N) YES, NA INITIALS AW [id number] ASUMADU LAW EXAMINER. EXAMINATION GENERAL EXAMINATION: GENERALNO ACUTE DISTRESS, WELL NOURISHED AND HYDRATED. PSYCHAPPROPRIATE MOOD AND AFFECT . LUNGS:CLEAR TO AUSCULTATION BILATERALLY, NO WHEEZES, RHONCHI, RALES. HEART:NO MURMURS, REGULAR RATE AND RHYTHM. BACK:POINT TENDER ALONG LUMBAR SPINE, SURROUNDING SKIN SHOWS NO ERYTHEMA, ECCHYMOSIS, INCREASED WARMTH, AND/OR SKIN ERUPTIONS NOTED. PATIENT ENDORSES INCREASED PAIN WITH FACET LOADING. . MUSCULOSKELETAL:EQUAL STRENGTH OF THE LOWER EXTREMITIES BILATERALLY . ASSESSMENTS OTHER SPONDYLOSIS, LUMBOSACRAL REGION - M47.897 (PRIMARY) TREATMENT OTHER SPONDYLOSIS, LUMBOSACRAL REGION NOTES: DIAGNOSTIC FACET BLOCK #2 L4-L5 L5-S1. CLINICAL NOTES: 40-YEAR-OLD FEMALE IN FOR POST SIJ FOLLOW-UP. GIVEN PRESENTING SYMPTOMS RECOMMEND DIAGNOSTIC FACET BLOCK #2 RIGHT SIDE WITH POST PROCEDURAL FOLLOW-UP. PATIENT HAS EXPRESSED UNDERSTANDING OF AND WAS IN AGREEMENT WITH TREATMENT PLAN. GIVEN TIME TO ASK QUESTIONS AND EXPRESS CONCERNS. , ISTOP REGISTRY REVIEWED AND DEMONSTRATES COMPLLIANCE. (REF # [id number] ) BRINGS IN MEDICATIONS WHICH IS APPROPRIATE FOR WHAT WAS DISPENSED. RECENT URINE TOXICOLOGY REVIEWED. NO UNAUTHORIZED MEDICATIONS. NO ILLICIT SUBSTANCES AND PRESCRIBED MEDICATIONS WERE PRESENT. OTHERS NOTES: FACET JOINT INJECTION MATERIAL WAS PRINTED. DISPOSITION & COMMUNICATION FOLLOW UP POSTPROCEDURE (REASON: DIAGNOSTIC FACET BLOCK #2 L4-L5 L5-S1) ELECTRONICALLY SIGNED BY JAKUB VILLEDA ON 02/24/2020 AT 08:23 AM EDT DISCLAIMER : THIS IS A VISIT SUMMARY EXTRACTED FROM THE [employer] CHART. IT IS NOT A COPY OF THE [employer] [place] PROGRESS NOTE. GELACIO
== END ==
LOC: M PAIN 10:30
PROVIDERS: ATTEND Family Medicine
DX: M47.897 Other spondylosis, lumbosacral region (principal); K21.9 Gastro-esophageal reflux disease without esophagitis; Z98.84 Bariatric surgery status; Z86.59 Personal history of other mental and behavioral disorders; G43.909 Migraine, unspecified, not intractable, without status migrainosus; J45.909 Unspecified asthma, uncomplicated; G47.33 Obstructive sleep apnea (adult) (pediatric); I10 Essential (primary) hypertension; F17.210 Nicotine dependence, cigarettes, uncomplicated; Z88.5 Allergy status to narcotic agent; Z88.8 Allergy status to other drugs, medicaments and biological substances; Z91.040 Latex allergy status; Z79.891 Long term (current) use of opiate analgesic; Z79.899 Other long term (current) drug therapy

== ENCOUNTER → 2020-03-02 | Outpatient (CLI) | payer OTHER ==
--- NOTE | 2020-03-04 00:13 | ECWPNPC ---
PATIENT NAME: ADELA ALMONTE : 1980 GENDER: FEMALE VISIT DATE: 03/02/2020 DISCHARGE DATE: 03/02/20 1210 VISIT LOCKED DATE TIME: PHYSICIAN: RAVEN CORDON RESOURCE: RAVEN CORDON REASON FOR APPOINTMENT 1. CHEEK SWAB ALLERGIES NO[ALLERGIES VERIFIED] ASSESSMENTS CHRONIC PRESCRIPTION OPIATE USE - Z79.891 TREATMENT CHRONIC PRESCRIPTION OPIATE USE LAB: PAIN CENTER URINE TOX (SEND OUT) DISPOSITION & COMMUNICATION ELECTRONICALLY SIGNED BY JAKUB VILLEDA ON 03/03/2020 AT 08:08 AM EDT DISCLAIMER : THIS IS A VISIT SUMMARY EXTRACTED FROM THE [employer] CHART. IT IS NOT A COPY OF THE [employer] PROGRESS NOTE. GELACIO
== END ==
LOC: M PAIN 11:45
PROVIDERS: ATTEND Family Medicine
DX: Z79.891 Long term (current) use of opiate analgesic (principal)

== ENCOUNTER → 2020-03-04 | Outpatient (CLI) | payer OTHER | LOC: M LABSMTC 10:45 | PROVIDERS: ATTEND Anesthesiology | CPT/HCPCS: C9803; U0003 ==

== ENCOUNTER → 2020-03-07 | Outpatient (CLI) | payer OTHER ==
[~2020-03-07] MED LIST changes: +BUPIVACAINE HCL 0.25% 30ML VIAL As Ordered ONE; +ISOVUE-M 300 61% 15ML VIAL As Ordered ONE; +LIDOCAINE 1% SDV 30ML VIAL As Ordered ONE
--- NOTE | 2020-03-08 00:18 | ECWPNPC ---
PATIENT NAME: ADELA ALMONTE : 1980 GENDER: FEMALE VISIT DATE: 03/07/2020 DISCHARGE DATE: 03/07/20 1458 VISIT LOCKED DATE TIME: PHYSICIAN: HARRISON ZEPEDA MD RESOURCE: HARRISON ZEPEDA MD REASON FOR APPOINTMENT 1. RT DX LFB L4/L5, L5/S1 #2 HISTORY OF PRESENT ILLNESS GENERAL: -. FALL RISK SCREENING: SCREENING :NO FALLS REPORTED IN THE LAST YEAR PAIN SCREENING: PATIENT HAS A COMPLAINT OF ACUTE OR CHRONIC PAIN :YES LOCATION OF PAIN:UPPER BACK, MID BACK, LOW BACK, LEFT HIP, RIGHT HIP INTENSITY OF PAIN (SCALE OF 1 TO 10):8 WHAT DOES YOUR PAIN FEEL LIKE:ACHING, BURNING, CONTINOUS, SHARP, STABBING, TENDER, THROBBING, SORE, SHOOTING DURATION:CONSTANT PAIN IS INCREASED BY:ACTIVITIES, PROLONGED STANDING PAIN IS DECREASED BY:OTHERS LYING DOWN, HEATING PAD NURSING NOTE: -. PAIN CENTER INTAKE QUESTIONS: DO YOU HAVE A HISTORY OF MRSA? :YES HEAD DO YOU TAKE A BLOOD THINNERS? :NO DO YOU HAVE ANY BLEEDING DISORDERS? :YES IRON DEF ANEMIA ANY NEW NUMBNESS OR WEAKNESS IN YOUR LEGS OR ARMS? :YES NUMBNESS IN LEFT ARM STARTING IN SHOULDER INTO HAND AND LAST 2 FINGERS ANY PACEMAKER,DEFIBRILLATOR, OR DORSAL COLUMN STIMULATOR? :NO DO YOU HAVE ANY RASHES OR OPEN SORES? :NO ARE YOU ALLERGIC TO IV DYE? :NO ARE YOU DIABETIC? :NO ANY NEW PROBLEMS WITH YOUR MEDICATIONS? :NO HAVE YOU RECEIVED A VACCINE IN THE PAST 30 DAYS? :NO DO YOU PLAN TO RECEIVE A VACCINE IN THE NEXT 21 DAYS? :NO ANY HISTORY OF SEIZURES? :NO ANY HISTORY OF CARDIAC ISSUES OR EVENTS? :NO DO YOU HAVE SLEEP APNEA? :YES DO YOU WEAR A CPAP?YES WEARS OCCASIONALLY ANY RECENT HEAD INJURY? :NO DO YOU HAVE ANY NEW INFECTIONS? :NO WHEN DID YOU LAST EAT? : 03/06/20201999 WHEN DID YOU LAST DRINK? : 03/07/2020 06 WHAT DID YOU LAST DRINK? : COFFEE NAME OF PERSON DRIVING YOU HOME? : [employer] DO YOU HAVE ANY OTHER QUESTIONS OR CONCERNS? : - CURRENT MEDICATIONS TAKING VYVANSE 70 MG CAPSULE (SCHEDULE II DRUG) TAKE ONE CAPSULE BY MOUTH EVERY MORNING - MAXIMUM DAILY DOSE ONE CAPSULE ORAL , NOTES: 03/07/2020 0700 TAKING BUSPIRONE HCL 30 MG TABLET TAKE ONE TABLET BY MOUTH @6AM AND TAKE ONE TABLET BY MOUTH @8PM ORAL , NOTES: 03/07/2020699 TAKING PRAZOSIN HCL 1 MG CAPSULE TAKE ONE CAPSULE BY MOUTH @8PM ORAL , NOTES: 03/06/20201899 TAKING IMITREX , NOTES: NONE LATELY TAKING FAMOTIDINE 40 MG TABLET TAKE ONE TABLET BY MOUTH @8PM ORAL , NOTES: 03/06/20201899 TAKING AIMOVIG 70 MG/ML SOLUTION AUTO-INJECTOR USE ONCE PER MONTH SUBCUTANEOUS , NOTES: 02/06/2020 TAKING ESTRADIOL 0.025 MG/24HR PATCH WEEKLY APPLY ONE PATCH TOPICALLY ONCE PER WEEK TRANSDERMAL , NOTES: FRIDAY TAKING PANTOPRAZOLE SODIUM 40 MG TABLET DELAYED RELEASE TAKE ONE TABLET BY MOUTH @6AM ORAL , NOTES: 03/07/2020699 TAKING NIFEDIPINE 20 MG CAPSULE TAKE ONE CAPSULE BY MOUTH @6AM ORAL , NOTES: 03/07/2020699 TAKING FUROSEMIDE 20 MG TABLET TAKE ONE TABLET BY MOUTH @6AM ORAL , NOTES: 03/07/2020699 TAKING DICYCLOMINE HCL 20 MG TABLET TAKE ONE TABLET BY MOUTH @6AM AND TAKE ONE TABLET @NOON AND TAKE ONE TABLET @8PM ( NEEDED FOR PAIN) ORAL , NOTES: 03/07/2020699 TAKING PROMETHAZINE HCL 25 MG TABLET TAKE ONE TABLET BY MOUTH @6AM AND TAKE ONE TABLET BY MOUTH @NOON AND TAKE ONE TABLET BY MOUTH @6PM AND TAKE ONE TABLET BY MOUTH @8PM ORAL , NOTES: 03/07/2020699 TAKING MOVANTIK 25 MG TABLET TAKE ONE TABLET BY MOUTH @6AM ORAL , NOTES: 03/07/2020699 TAKING FIBER LAXATIVE 0.52 GM CAPSULE TAKE TWO CAPSULES BY MOUTH @6AM AND TAKE TWO CAPSULES @8PM ORAL , NOTES: 03/07/2020699 TAKING CUVITRU 4 GM/20ML SOLUTION DIRECTED SUBCUTANEOUS , NOTES: LAST FRIDAY TAKING LIDOCAINE HCL 3 % CREAM APPLY TO ABDOMEN 30 MINUTES PRIOR TO INFUSION EXTERNAL , NOTES: LAST FRIDAY TAKING VRAYLAR 4.5 MG CAPSULE TAKE ONE CAPSULE BY MOUTH AT BEDTIME ORALLY , NOTES: 03/06/20201899 TAKING CAMPRAL DOSE THOR 333 MG TABLET DELAYED RELEASE 2 TABLETS ORALLY THREE TIMES A DAY, NOTES: 2 WEEKS AGO TAKING BOTOX 100 UNIT SOLUTION RECONSTITUTED DIRECTED INTRAMUSCULAR , NOTES: 12/20/19 TAKING AZELASTINE HCL 137 MCG/SPRAY SOLUTION 1 PUFF IN EACH NOSTRIL NASALLY TWICE A DAY TAKING OSTEO BI-FLEX REGULAR STRENGTH 250-200 MG TABLET 1 TABLET WITH A MEAL ORALLY ONCE A DAY TAKING ALBUTEROL SULFATE (2.5 MG/3ML) 0.083% NEBULIZATION SOLUTION 3 ML NEEDED INHALATION EVERY 8 HRS, NOTES: NONE LATELY TAKING ACETAMINOPHEN 500 MG CAPSULE 1 CAPSULES NEEDED ORALLY EVERY 6 HRS PRN, NOTES: 2 DAYS AGO TAKING CHANTIX 1 MG 1 TAB ORALLY BID, NOTES: 02/08/20 AM TAKING VENTOLIN HFA 90 MCG/ACT AEROSOL SOLUTION 1 PUFF NEEDED INHALATION EVERY 4 HRS, NOTES: LAST WEEK TAKING AMMONIUM LACTATE 10 % LOTION 1 APPLICATION TO AFFECTED AREA EXTERNALLY TWICE A DAY, NOTES: HAS NOT USED IN A WHILE TAKING CETIRIZINE HCL 10 MG TABLET TAKE ONE TABLET BY MOUTH @6AM ( NEEDED) ORAL ONCE DAILY, NOTES: 03/07/2020 0700 TAKING BELBUCA 150 MCG FILM (SCHEDULE III DRUG) APPLY ONE FILM TO THE GUM EVERY 12 HOURS - MAXIMUM DAILY DOSE TWO FILMS BUCCAL EVERY 12 HRS, NOTES: 03/06/2020 0700 TAKING PREGABALIN 200 MG CAPSULE 1 CAPSULE ORAL THREE TIMES DAILY, NOTES: 03/07/2020 0700 TAKING CARISOPRODOL 350 MG TABLET 1 TABLET NEEDED ORALLY FOR SPASMS AND PAIN EVERY 12 HOURS NEEDED MDD2, NOTES: 03/06/2020 1900 TAKING TOPIRAMATE 50 MG TABLET TAKE ONE TABLET BY MOUTH TWICE DAILY BOTTLE ORAL TWICE DAILY, NOTES: 03/07/2020 0700 NOT-TAKING FLUTICASONE PROPIONATE 50 MCG/ACT SUSPENSION 1 SPRAY IN EACH NOSTRIL NASALLY ONCE A DAY MEDICATION LIST REVIEWED AND RECONCILED WITH THE PATIENT PAST MEDICAL HISTORY COMMON VARIABLE IMMUNO DEFICIENCY DISEASE HISTORY OF KIDNEY STONES CHRONIC NECK/MID/LOW BACK PAIN - PAIN CENTER CHRONIC OPIOID USE, OPIOID-INDUCED CONSTIPATION PEPTIC ULCER DISEASE, GERD, S/P GASTRIC BYPASS - DR. MILLER BIPOLAR, ANXIETY, DEPRESSION, ADHD - DR. OTERO MIGRAINE HEADACHES - CAREY NEURO, GETS BOTOX INJECTIONS SURGICAL MENOPAUSE S/P ELIA & BSO (2009) FOR ENDOMETRIOSIS; PRESCRIBED ESTRADIOL BY CHRONIC RHINITIS/SINUSITIS, ALLERGIES RAYNAUD'S SYNDROME ASTHMA, JOSEPH ON BIPAP - DR. SAI TIDWELL HISTORY OF IRON-DEFICIENCY ANEMIA TOBACCO USE; SMOKES 15 CIG/DAY HISTORY OF ALCOHOL USE DISORDER; DRINKS 2 DAYS A WEEK HISTORY OF DRUG ABUSE IN REMISSION; USED IV METH AND IV ECSTASY IN 08/2019 HEART MURMUR - ECHO 10/2017 BORDERLINE LVH, MILD LAE, SUBTLE AV SCLEROSIS, AORTIC SCLEROSIS, MILD AR, MILD MR HTN - CANNY ALLERGIES MORPHINE SULFATE: TACHYCARDIA DILAUDID: TACHYCARDIA REGLAN: HIVES LAMICTAL: WELTS LATEX GLOVES SURGICAL HISTORY BACK SURGERY 1997 LAPAROTOMY X 4 FOR ENDOMETRIOSIS AT [facility], DR. CRISTOBAL 200S CHOLECYSTECTOMY 07/2008 LUMBAR LAMINECTOMY, [place] 02/2009 HYSTERECTOMY, APPENDECTOMY - FOR ENDOMETRIOSIS 12/2009 GASTRIC BYPASS (DR. CARTAGENA, [facility]) 01/2012 LAPAROSCOPY AND REMOVAL OF ADHESIONS (DR. BARRERA) 12/2012 CHEST TUBE ENDOSCOPY/COLONOSCOPY BLADDER REPAIR 10/2016 LAPROSCOPC SURGERY FOR ENDOMETRIOSIS / LYSIS OF ADHESIONS AND SCAR TISSUE (BOWEL NICKED IN OR). 12/19/17 EGD - ESOPHAGEAL PLAQUE - BIOPSY RESULTS NOT SENT TO US (DR. MILLER) 05/2018 REMOVAL CYSTS IN BILATERAL EARS REMOVAL OF NEEDLE FROM RIGHT FOOT FAMILY HISTORY FATHER: ALIVE, HAD SKIN CANCER, DIAGNOSED WITH UNSPECIFIED CEREBRAL ARTERY OCCLUSION WITH CEREBRAL INFARCTION, OTHER MALIGNANT NEOPLASM OF UNSPECIFIED SITE MOTHER: ALIVE, DIABETES, HYPERTENSION, UNSPECIFIED HEART DISEASE SIBLINGS: ALIVE, SISTER WITH JUAN'S 1 SISTER(S) . DENIES FAMILY HX OF PANCREATIC CANCER, GRANDMOTHER AND FATHER HAD MELANOMA. SOCIAL HISTORY GENERAL: TOBACCO USE ARE YOU A:CURRENT SMOKER ARE YOU INTERESTED IN QUITTING?READY TO QUIT WAITING FOR PRESCRIPTION FOR CHANTIX. COUNSELED THE PATIENT ON TOBACCO USE, CESSATION [id number]/20/2020 HOW MANY CIGARETTES A DAY DO YOU SMOKE?11-20 HOW SOON AFTER YOU WAKE UP DO YOU SMOKE YOUR FIRST CIGARETTE?AFTER 60 MIN HOW OFTEN DO YOU SMOKE CIGARETTES?EVERY DAY PATIENT COUNSELED ON THE DANGERS OF TOBACCO USE AND URGED TO QUIT:03/07/2020 SMOKING CESSATION INFORMATION GIVEN02/23/2020 LATEX QUESTIONNAIRE LATEX ALLERGY : HAVE YOU EVER DEVELOPED ANY TYPE OF REACTION AFTER HANDLING LATEX PRODUCTS SUCH RUBBER GLOVES, CONDOMS, DIAPHRAGMS, BALLOONS, SOCKS, OR UNDERWEAR?YES - PLEASE INDICATE :RUBBER GLOVES, CONDOMS, UNDERWEAR, OTHER (DOCUMENT IN NOTES) BRAS LATEX ALLERGY : HAVE YOU EVER DEVELOPED ANY TYPE OF REACTION DURING OR AFTER DENTAL APPOINTMENT, VAGINAL/RECTAL EXAMINATION, SURGICAL PROCEDURE, OR ANY OTHER EXPOSURE?YES - PLEASE INDICATE :VAGINAL EXAM LATEX RISK : HAVE YOU EVER HAD ANY DIFFICULTY BREATHING OR HIVES AFTER EATING OR HANDLING ANY FRUITS, OR VEGETABLES; SUCH KIWI, BANANAS, STONE FRUITS, OR CHESTNUTSNO LATEX RISK : DO YOU HAVE A PREVIOUS PERSONAL HISTORY OF MORE THAN NINE SURGERIES, SPINA BIFIDA, OR REPEATED CATHERIZATIONS? YES - PLEASE INDICATE : > 9 SURGERIES LATEX RISK : ARE YOU FREQUENTLY EXPOSED TO LATEX PRODUCTS IN YOUR OCCUPATION?NO DATE ASKED : 03/07/2020 LUNG CANCER SCREENING SMOKING STATUS:CURRENT SMOKER BMI CARE GOAL FOLLOW-UP ABOVE NORMAL BMI FOLLOW-UPDIETARY MANAGEMENT EDUCATION, GUIDANCE, AND COUNSELING, DIETARY NEEDS EDUCATION, EXERCISE PROMOTION: STRENGTH TRAINING ALCOHOL SCREENING DID YOU HAVE A DRINK CONTAINING ALCOHOL IN THE PAST YEAR?YES HOW OFTEN DID YOU HAVE SIX OR MORE DRINKS ON ONE OCCASION IN THE PAST YEAR?NEVER (0 POINTS) HOW MANY DRINKS DID YOU HAVE ON A TYPICAL DAY WHEN YOU WERE DRINKING IN THE PAST YEAR?1 OR 2 (0 POINTS) HOW OFTEN DID YOU HAVE A DRINK CONTAINING ALCOHOL IN THE PAST YEAR?TWO TO THREE TIMES PER WEEK (3 POINTS) POINTS3 INTERPRETATIONPOSITIVE RECREATIONAL DRUG USE DRUG USE?NO CAFFEINE CAFFEINE USE?YES 6-8 CUPS COFFEE DAILY, SODA ON OCCASIONS SEXUAL HX HAD SEX IN THE LAST 12 MONTHS (VAGINAL, ORAL, OR ANAL)?NO LMP:2009 HAVE YOU EVER HAD AN STD?NO HIV / HEP-C SCREENING HIV TEST OFFERED TO PATIENT:YES DATE OFFERED:03/13/2017 TEST ACCEPTED:NO HEP-C TEST OFFERED TO PATIENT:NO REASON:PATIENT DECLINED TAOIST [id number] VOODOO LANGUAGE LANGUAGES SPOKEN:VIETNAMESE EDUCATION LEVEL OF EDUCATION:NOT FINISHED COLLEGE LEARNING BARRIERS / SPECIAL NEEDS CHANGE FROM LAST VISIT?NO 10/07/19 BARRIERS TO LEARNING?NO HEARING IMPAIRED?YES VISION IMPAIRED?YES COGNITIVELY IMPAIRED?NO :CORRECTIVE LENSES READINESS TO LEARN?YES LEARNING PREFERENCES?NO LEARNING CAPABILITIES PRESENT?YES EMOTIONAL BARRIERS?NO SPECIAL DEVICES?NO COMBINATION MAN NEEDED?NO DOMESTIC VIOLENCE DO YOU FEEL SAFE IN YOUR ENVIRONMENT?YES OCCUPATION: UNEMPLOYED. DIET: REGULAR. EXERCISE: NO REGULAR EXERCISE. MARITAL STATUS: SINGLE. NEW PATIENT PAIN DIARY TODAY'S VISIT 02/08/20 PATIENT DESCRIBES PAIN :ACHING, HAVE IT ALL THE TIME, SHARP, STABBING, TENDER, THROBBING, SORE, SHOOTING FROM 0-10, WHAT LEVEL IS YOUR PAIN TODAY?8 PRECIPITATING FACTORS EVERYTHING ALLEVIATING FACTORS HEAT/ICE, MEDS IMPACT ON FUNCTION YES PAIN CLINIC PFS, CLERGY, PUBLIC HEALTH REFERRALS PFS REFERRAL NEEDED?NO CLERGY REFERRAL NEEDED?NO PUBLIC HEALTH REFERRAL NEEDED?NO WAS THE PROVIDER NOTIFIED OF ANY PERTINENT INFO?YES N/A HAS THE PATIENT BEEN EDUCATED REGARDING HIS/HER PLAN OF CARE?YES HAS THE PATIENT BEEN EDUCATED REGARDING PAIN, THE RISK FOR PAIN, THE IMPORTANCE OF EFFECTIVE PAIN MANAGEMENT, AND THE PAIN ASSESSMENT PROCESS?YES ADVANCE DIRECTIVE ADVANCE DIRECTIVE DISCUSSED WITH PATIENT:YES PT DOES NOT HAVE ANY ADVANCED DIREDCTIVES AND SHE DECLINES INFORMATION ON HCP AT THIS TIME. HOSPITALIZATION/MAJOR DIAGNOSTIC PROCEDURE SURGERY RELATED [facility] ([facility]) 05/2012 ADMITTED TO [facility] 12/2015 [facility] - [facility]ED BLADDER 10/2016 [facility] DAY HOSPITAL STAY DUE TO NICKED BOWEL 12/19/2017 PNEUMONIA 2015 & 2017 REHAB 2013 VITAL SIGNS WT 203.6 LBS, HT 67", BMI 31.88 INDEX, BP 137/79 MM HG, HR 90 /MIN, RR 18 /MIN, TEMP 96.4 F, OXYGEN SAT % 98%, SAFE IN ENV? (Y/N) YES, NA INITIALS AW 1153, REVIEWED BY: MILLER. EXAMINATION GENERAL EXAMINATION: THE PATIENT IS ALERT, ORIENTED TIMES THREE AND COOPERATIVE. HEART SHOWS REGULAR RHYTHM, NO MURMURS AND NO GALLOPS. LUNGS ARE CLEAR TO AUSCULTATION. ASSESSMENTS SPONDYLOSIS OF LUMBAR REGION WITHOUT MYELOPATHY OR RADICULOPATHY - M47.816 SPONDYLOSIS WITHOUT MYELOPATHY OR RADICULOPATHY, LUMBOSACRAL REGION - M47.817 PROCEDURES PAIN NURSING RECORD PRE-PROCEDURE IV SITE N/A PROCEDURE IN ROOM 1420, PHYSICIAN IN ROOM 1433, START 1435, FINISH 1439, PHYSICIAN OUT OF ROOM 1440, OUT OF ROOM 1447, STEROID N/A, O2 RA, ECG NORMAL SINUS, PATIENT SHIELDED YES, SAFETY STRAP YES, PREP CHLOROPREP N RAINA RN, IV INFUSED N/A, DRESSING TEGADERM DR ZEPEDA LOC: MARTA PROCTOR 03/07/2020 2:29:42 PM > , 1. ALERT, ORIENTED RESP: MARTA PROCTOR 03/07/2020 2:29:48 PM > , 1. REGULAR, NO DYSPNEA COLOR: MARTA PROCTOR 03/07/2020 2:29:54 PM > , 1. PINK SKIN: MARTA PROCTOR 03/07/2020 2:30:01 PM > , 1. WARM, DRY POSITION: MARTA PROCTOR 03/07/2020 2:30:07 PM > , 1. PRONE VITALS: MARTA PROCTOR 03/07/2020 2:30:15 PM > 146/85-62-18-99% , MARTA PROCTOR 03/07/2020 2:37:06 PM > ,146/85-60-18-98% , MARTA PROCTOR 03/07/2020 2:48:57 PM > 138/77-61-18-98% 1454- 140/82-79-18-99% DISCHARGE: POST PAIN 02/12- LOWER BACK, DRESSING SITE DRY AND INTACT LOWER RIGHT BACK, IV N/A, GAIT STEADY, TEACHING COMPLETED, PATIENT ACKNOWLEDGES UNDERSTANDING YES, PATIENT DISCHARGED AT 1500 PN LUMBAR FACET BLOCK DIAGNOSTIC PRE PROCEDURE DIAGNOSIS LUMBAR SPONDYLOSIS, LUMBOSACRAL SPONDYLOSIS POST PROCEDURE DIAGNOSIS LUMBAR SPONDYLOSIS, LUMBOSACRAL SPONDYLOSIS PROCEDURE RIGHT L4-L5 AND RIGHT L5-S1 FACET BLOCK DIAGNOSTIC NUMBER [address] HARRISON ZEPEDA CRIME SCENE TECHNICIAN NONE ANESTHESIA LOCAL PRE PROCEDURE NOTE THE PATIENT WITH HISTORY OF CHRONIC LOW BACK PAIN. I EVALUATED THE PATIENT AND REVIEWED THE CHART. I WENT OVER THE RISKS, ALTERNATIVES, AND BENEFITS ASSOCIATED WITH THIS PROCEDURE. THE PATIENT WOULD LIKE TO PROCEED AND GAVE CONSENT TO PERFORM THE PROCEDURE. AGREED WITH THE PATIENT WE ARE DOING THIS PROCEDURE TO DETERMINE IF THE PATIENT IS A CANDIDATE FOR A RADIOFREQUENCY ABLATION OF THE FACETS JOINTS. THE PATIENT DENIES UNEXPLAINABLE WEIGHT LOSS, FEVER, CHILLS, OR NEW CHANGES IN URINARY OR BOWEL CONTROL. THE PATIENT IS COVID-19 NEGATIVE DESCRIPTION OF PROCEDURE THE PATIENT WAS BROUGHT TO THE PROCEDURE ROOM AND PLACED IN THE PRONE POSITION. THE LUMBOSACRAL AREA WAS CLEANED WITH CHLORAPREP SOLUTION AND DRAPED ASEPTICALLY. THE PROCEDURE WAS DONE UNDER STERILE CONDITIONS. I CHECKED LATERALITY AND THE LEVEL WHERE THE PROCEDURE WAS GOING TO BE PERFORMED WITH THE PATIENT AND THE SUPPORTING STAFF AT THE MOMENT OF THE TIME OUT IN THE PROCEDURE ROOM. UNDER FLUOROSCOPIC GUIDANCE, TARGETS WERE SELECTED AT THE INTERSECTION OF THE RIGHT TRANSVERSE PROCESS OF L4, L5 AND ALA OF S1 WITH ITS RESPECTIVE SUPERIOR ARTICULAR PROCESS. LIDOCAINE WAS USED TO NUMB THE SKIN AND THE SUBCUTANEOUS TISSUE BELOW IT. SPINAL NEEDLE, 22-GAUGE, WAS ADVANCED UNDER FLUOROSCOPIC GUIDANCE AND FOLLOWING PATIENT FEEDBACK UNTIL THE TARGETS WERE REACHED. POSITION OF THE NEEDLES WAS VERIFIED WITH AP AND LATERAL VIEWS. AFTER PROPER POSITION OF THE NEEDLES WAS ACHIEVED, ISOVUE-M DYE 30%, 0.1 ML, WAS INJECTED AT EACH SITE SHOWING ADEQUATE SPREAD OF THE DYE. THEN A SOLUTION OF 0.4 ML OF BUPIVACAINE 0.25% WAS INJECTED AT EACH SITE. THERE WAS NO EVIDENCE OF BLOOD, PARESTHESIA OR CEREBROSPINAL FLUID DURING THE PROCEDURE. THE PATIENT WAS SENT TO THE RECOVERY ROOM. THE PATIENT WAS MOVING THE EXTREMITIES AND DOING WELL. THERE WAS NO COMPLICATION DURING THE PROCEDURE. FLUOROSCOPY TIME WAS 16 SECONDS POST PROCEDURE NOTE THE PATIENT WILL DOCUMENT HIS PAIN LEVEL AND RESPONSE TO THIS PROCEDURE EVERY 30 MINUTES. THE PATIENT WILL BE SEEN IN A FOLLOW UP IN THE NEXT FEW WEEKS. FURTHER DETERMINATION FOR HIS CASE WILL BE DONE AT THE NEXT VISIT. INSTRUCTIONS WERE GIVEN, QUESTIONS WERE ANSWERED, AND THE PATIENT EXPRESSED UNDERSTANDING AND AGREED WITH THE PLAN. I, SANJUANA SERNA, DOCUMENTED THE ABOVE INFORMATION ACTING A SCRIBE FOR DR. ZEPEDA. I HAVE REVIEWED THE ABOVE DOCUMENT, WRITTEN BY SANJUANA SERNA, PORTUGUESE TUTOR, AND I VERIFY THAT IT IS ACCURATE DIAGNOSTIC IMAGING [facility] FACET BLOCK (PAIN)[id number] PROCEDURE CODES 64818 INJ PARAVERT F JNT L/S 1 LEV, MODIFIERS: RT [address]164 INJ PARAVERT F JNT L/S 2 LEV, MODIFIERS: RT DISPOSITION & COMMUNICATION FOLLOW UP F/UP WITH FABRIC CUTTER (REASON: POST LFBD #2 RIGHT L4-L5, L5-S1) ELECTRONICALLY SIGNED BY HARRISON ZEPEDA MD, ON 03/07/2020 AT 04:46 PM EDT DISCLAIMER : THIS IS A VISIT SUMMARY EXTRACTED FROM THE [employer] CHART. IT IS NOT A COPY OF THE [employer] PROGRESS NOTE. MTDD
--- NOTE | 2020-03-08 11:05 | REP ---
C-ARM VIEWS LOWER LUMBAR SPINE: CLINICAL HISTORY: Pain. Two C-arm views of the lower lumbar spine performed during facet injection by Dr. Castillo. Lamar were seen along the lower lumbar spine. 16 seconds of fluoroscopy time utilized. Electronically Signed by Chava Mednes MD 03/08/2020 12:56 P
== END ==
LOC: M PAIN 12:15
PROVIDERS: ATTEND Anesthesiology
DX: M47.816 Spondylosis without myelopathy or radiculopathy, lumbar region (principal); M47.817 Spondylosis without myelopathy or radiculopathy, lumbosacral region; F17.210 Nicotine dependence, cigarettes, uncomplicated; Z79.899 Other long term (current) drug therapy; Z98.84 Bariatric surgery status; Z88.5 Allergy status to narcotic agent; Z88.8 Allergy status to other drugs, medicaments and biological substances; Z91.040 Latex allergy status
CPT/HCPCS: 64493; 64494; Q9967

== ENCOUNTER → 2020-03-14 | Outpatient (REF) | payer OTHER ==
[~2020-03-14] MED LIST changes: -BUPIVACAINE HCL 0.25% 30ML VIAL As Ordered ONE; -ISOVUE-M 300 61% 15ML VIAL As Ordered ONE; -LIDOCAINE 1% SDV 30ML VIAL As Ordered ONE
[2020-03-14 11:16] LABS: APPEARANCE, URINE CLEAR (CLEAR); BACTERIA, URINE AUTO NEGATIVE (NEGATIVE); BILIRUBIN, URINE AUTO NEGATIVE (NEGATIVE); BLOOD, URINE BLOOD NEGATIVE (NEGATIVE); COLOR, URINE STRAW (YELLOW); GLUCOSE, URINE (UA) AUTO NEGATIVE (NEGATIVE); KETONE, URINE AUTO NEGATIVE (NEGATIVE); LEUKOCYTE ESTERASE, URINE AUTO NEGATIVE (NEGATIVE); NITRITE, URINE AUTO NEGATIVE (NEGATIVE); PROTEIN, URINE AUTO NEGATIVE (NEGATIVE); RBC, URINE AUTO 0 /HPF (0-3); SPECIFIC GRAVITY URINE AUTO 1.006 (1.002-1.035); SQUAMOUS EPITHELIAL CELL UR AU 0 /HPF (0-6); UROBILINOGEN, URINE AUTO 0.2 mg/dL (0.0-2.0); WBC, URINE AUTO 0 /HPF (0-3)
== END ==
LOC: M PLALAB 08:20
PROVIDERS: ATTEND Family Medicine
DX: I10 Essential (primary) hypertension (principal)

== ENCOUNTER → 2020-03-23 | Outpatient (CLI) | payer OTHER ==
[~2020-03-23] MED LIST changes: +ACAM0.05 PO; +AIMO70IN SQ; +ALBU83IN NEB; -AMIT25TA PO; +AMIT25TA17 PO; +AZEL0.055 NARES; +CALC-212 PO; -CALC600T7 PO; +CETI-24 PO; +DICY20TA11 PO; +ESTR25TD TOP; +FAMO40TA3 PO; +FLUTISP; +FURO20TA2 PO; +GABA-282 PO; -GABA-843 PO; +LIDO3CRE14 TOP; +LYRI200C PO; +NALO25TA PO; +PRAZ1CAP PO; +TOPI50TA9 PO; +VRAY4.5C PO
[2020-03-23 12:27] LABS: EOS # 0.1 10^3/uL (0.0-0.5); EOS % 1.2 % (0.0-3.0); HEMATOCRIT 38.3 % (36.0-47.0); HEMOGLOBIN 12.2 g/dl (12.0-15.5); LYMPH # 1.5 10^3/uL (1.5-5.0); LYMPH % 35.1 % (24.0-44.0); MEAN CORPUSCULAR HEMOGLOBIN 27.9 pg (27.0-33.0); MEAN CORPUSCULAR HGB CONC 31.9 g/dl (32.0-36.5); MEAN CORPUSCULAR VOLUME 87.6 fl (80.0-96.0); MONO # 0.3 10^3/uL (0.0-0.8); MONO % 6.8 % (0.0-5.0); NEUTROPHILS # 2.3 10^3/uL (1.5-8.5); NEUTROPHILS % 55.7 % (36.0-66.0); PLATELET COUNT, AUTOMATED 134 10^3/uL (150-450); RED BLOOD COUNT 4.37 10^6/uL (4.00-5.40); WHITE BLOOD COUNT 4.1 10^3/uL (4.0-10.0)
[2020-03-23 13:00] LABS: ALBUMIN 3.6 GM/DL (3.2-5.2); ALT/SGPT 22 U/L (12-78); BILIRUBIN,TOTAL 0.3 MG/DL (0.2-1.0); BLOOD UREA NITROGEN 10 MG/DL (7-18); CALCIUM LEVEL 9.4 MG/DL (8.5-10.1); CARBON DIOXIDE LEVEL 28 MEQ/L (21-32); CHLORIDE LEVEL 110 MEQ/L (98-107); CREATININE FOR GFR 0.87 MG/DL (0.55-1.30); GLOMERULAR FILTRATION RATE > 60.0 (>58); GLUCOSE, FASTING 93 MG/DL (70-100); IMMUNOGLOBULIN G 1310 MG/DL (681-1648); POTASSIUM SERUM 4.1 MEQ/L (3.5-5.1); SODIUM LEVEL 142 MEQ/L (136-145); TOTAL PROTEIN 7.3 GM/DL (6.4-8.2)
== END ==
LOC: M LAB 11:26
PROVIDERS: ATTEND Allergy & Immunology Allergy
DX: D83.9 Common variable immunodeficiency, unspecified (principal)

== ENCOUNTER → 2020-04-03 | Outpatient (CLI) | payer OTHER ==
[~2020-04-03] MED LIST changes: -ACAM0.05 PO; -AIMO70IN SQ; -ALBU83IN NEB; +AMIT25TA PO; -AMIT25TA17 PO; -AZEL0.055 NARES; -CALC-212 PO; +CALC600T7 PO; -CETI-24 PO; -DICY20TA11 PO; -ESTR25TD TOP; -FAMO40TA3 PO; -FLUTISP; -FURO20TA2 PO; -GABA-282 PO; +GABA-843 PO; -LIDO3CRE14 TOP; -LYRI200C PO; -NALO25TA PO; -PRAZ1CAP PO; -TOPI50TA9 PO; -VRAY4.5C PO
--- NOTE | 2020-04-05 04:33 | ECWPNPC ---
PATIENT NAME: ADELA ALMONTE : 1980 GENDER: FEMALE VISIT DATE: 04/03/2020 DISCHARGE DATE: 04/03/20 1055 VISIT LOCKED DATE TIME: PHYSICIAN: RAVEN CORDON RESOURCE: RAVEN CORDON REASON FOR APPOINTMENT 1. NECK AND BACK PAIN HISTORY OF PRESENT ILLNESS GENERAL: -40-YEAR-OLD FEMALE IN FOR POST DIAGNOSTIC FACET BLOCK FOLLOW-UP #2. SHE RATES HER PAIN PREPROCEDURE AT AN 8-9 OUT OF 10 AND POSTPROCEDURE AT A 4-5 OUT OF 10. SHE FURTHER STATES THE PROCEDURE CONTINUES TO HELP HER TODAY. SHE RATES HER PAIN CURRENTLY AT A 7 OUT OF 10 AND DESCRIBES IT ACHING, BURNING, CONTINUOUS, SHARP, STABBING, THROBBING, AND SHOOTING. RESULTS FROM RECENT U TOX DONE ON PATIENT INDICATE USE OF ECSTASY WHICH WILL BE DISCUSSED WITH PATIENT TODAY. FALL RISK SCREENING: SCREENING :NO FALLS REPORTED IN THE LAST YEAR PAIN SCREENING: PATIENT HAS A COMPLAINT OF ACUTE OR CHRONIC PAIN :YES LOCATION OF PAIN:NECK, MID BACK INTENSITY OF PAIN (SCALE OF 1 TO 10):7 WHAT DOES YOUR PAIN FEEL LIKE:ACHING, BURNING, CONTINOUS, SHARP, STABBING, THROBBING, SHOOTING DURATION:CONTINOUS, CONSTANT PAIN IS INCREASED BY:ACTIVITIES, PROLONGED STANDING PAIN IS DECREASED BY:USE OF PAIN MEDICATIONS PAIN HAS INTERFERED WITH THE FOLLOWING:MOOD, HOUSEWORK, RELATIONSHIP WITH OTHERS, ENJOYMENT OF LIFE PLAN/GOALS/TREATMENT/INTERVENTION/FOLLOW UP:SEE PLAN NURSING NOTE: -. PAIN CENTER INTAKE QUESTIONS: DO YOU HAVE A HISTORY OF MRSA? :NO DO YOU TAKE A BLOOD THINNERS? :NO DO YOU HAVE ANY BLEEDING DISORDERS? :NO ANY NEW NUMBNESS OR WEAKNESS IN YOUR LEGS OR ARMS? :NO ANY PACEMAKER,DEFIBRILLATOR, OR DORSAL COLUMN STIMULATOR? :NO DO YOU HAVE ANY RASHES OR OPEN SORES? :NO ARE YOU ALLERGIC TO IV DYE? :NO ARE YOU DIABETIC? :NO ANY NEW PROBLEMS WITH YOUR MEDICATIONS? :NO HAVE YOU RECEIVED A VACCINE IN THE PAST 30 DAYS? :NO DO YOU PLAN TO RECEIVE A VACCINE IN THE NEXT 21 DAYS? :NO DO YOU NEED ANY PRESCRIPTION? :NO DO YOU TAKE ANY IMMUNOSUPPRESSIVE MEDICATIONS? :NO IS THERE A CHANCE YOU COULD BE ? :NO ARE YOU BREAST FEEDING? :NO CURRENT MEDICATIONS TAKING VYVANSE 70 MG CAPSULE (SCHEDULE II DRUG) TAKE ONE CAPSULE BY MOUTH EVERY MORNING - MAXIMUM DAILY DOSE ONE CAPSULE ORAL , NOTES: 03/07/2020699 TAKING BUSPIRONE HCL 30 MG TABLET TAKE ONE TABLET BY MOUTH @6AM AND TAKE ONE TABLET BY MOUTH @8PM ORAL , NOTES: 03/07/2020699 TAKING PRAZOSIN HCL 1 MG CAPSULE TAKE ONE CAPSULE BY MOUTH @8PM ORAL , NOTES: 03/06/20201899 TAKING IMITREX , NOTES: NONE LATELY TAKING FAMOTIDINE 40 MG TABLET TAKE ONE TABLET BY MOUTH @8PM ORAL , NOTES: 03/06/20201899 TAKING AIMOVIG 70 MG/ML SOLUTION AUTO-INJECTOR USE ONCE PER MONTH SUBCUTANEOUS , NOTES: 02/06/2020 TAKING ESTRADIOL 0.025 MG/24HR PATCH WEEKLY APPLY ONE PATCH TOPICALLY ONCE PER WEEK TRANSDERMAL , NOTES: FRIDAY TAKING PANTOPRAZOLE SODIUM 40 MG TABLET DELAYED RELEASE TAKE ONE TABLET BY MOUTH @6AM ORAL , NOTES: 03/07/2020699 TAKING DICYCLOMINE HCL 20 MG TABLET TAKE ONE TABLET BY MOUTH @6AM AND TAKE ONE TABLET @NOON AND TAKE ONE TABLET @8PM ( NEEDED FOR PAIN) ORAL , NOTES: 03/07/2020699 TAKING PROMETHAZINE HCL 25 MG TABLET TAKE ONE TABLET BY MOUTH @6AM AND TAKE ONE TABLET BY MOUTH @NOON AND TAKE ONE TABLET BY MOUTH @6PM AND TAKE ONE TABLET BY MOUTH @8PM ORAL , NOTES: 03/07/2020699 TAKING MOVANTIK 25 MG TABLET TAKE ONE TABLET BY MOUTH @6AM ORAL , NOTES: 03/07/2020699 TAKING FIBER LAXATIVE 0.52 GM CAPSULE TAKE TWO CAPSULES BY MOUTH @6AM AND TAKE TWO CAPSULES @8PM ORAL , NOTES: 03/07/2020699 TAKING CUVITRU 4 GM/20ML SOLUTION DIRECTED SUBCUTANEOUS , NOTES: LAST FRIDAY TAKING LIDOCAINE HCL 3 % CREAM APPLY TO ABDOMEN 30 MINUTES PRIOR TO INFUSION EXTERNAL , NOTES: LAST FRIDAY TAKING VRAYLAR 4.5 MG CAPSULE TAKE ONE CAPSULE BY MOUTH AT BEDTIME ORALLY ONCE A DAY, NOTES: 03/06/20201899 TAKING BOTOX 100 UNIT SOLUTION RECONSTITUTED DIRECTED INTRAMUSCULAR , NOTES: 12/20/19 TAKING OSTEO BI-FLEX REGULAR STRENGTH 250-200 MG TABLET 1 TABLET WITH A MEAL ORALLY ONCE A DAY TAKING ALBUTEROL SULFATE (2.5 MG/3ML) 0.083% NEBULIZATION SOLUTION 3 ML NEEDED INHALATION EVERY 8 HRS, NOTES: NONE LATELY TAKING VENTOLIN HFA 90 MCG/ACT AEROSOL SOLUTION 1 PUFF NEEDED INHALATION EVERY 4 HRS, NOTES: LAST WEEK TAKING AMMONIUM LACTATE 10 % LOTION 1 APPLICATION TO AFFECTED AREA EXTERNALLY TWICE A DAY, NOTES: HAS NOT USED IN A WHILE TAKING BELBUCA 150 MCG FILM (SCHEDULE III DRUG) APPLY ONE FILM TO THE GUM EVERY 12 HOURS - MAXIMUM DAILY DOSE TWO FILMS BUCCAL EVERY 12 HRS, NOTES: 03/06/2020 07 TAKING PREGABALIN 200 MG CAPSULE 1 CAPSULE ORAL THREE TIMES DAILY, NOTES: 03/07/2020699 TAKING CARISOPRODOL 350 MG TABLET 1 TABLET NEEDED ORALLY FOR SPASMS AND PAIN EVERY 12 HOURS NEEDED MDD2, NOTES: 03/06/2020 1900 TAKING TOPIRAMATE 50 MG TABLET TAKE ONE TABLET BY MOUTH TWICE DAILY BOTTLE ORAL TWICE DAILY, NOTES: 03/07/2020699 TAKING FUROSEMIDE 20 MG TABLET TAKE ONE TABLET BY MOUTH @6AM ORAL , NOTES: 03/07/2020699 TAKING NIFEDIPINE 20 MG CAPSULE TAKE ONE CAPSULE BY MOUTH @6AM ORAL , NOTES: 03/07/2020699 TAKING NICORETTE 4 MG LOZENGE 1 LOZENGE NEEDED MOUTH/THROAT 20 TIME(S) A DAY TAKING AZELASTINE HCL 137 MCG/SPRAY SOLUTION 1 PUFF IN EACH NOSTRIL NASALLY TWICE A DAY TAKING CETIRIZINE HCL 10 MG TABLET TAKE ONE TABLET BY MOUTH @6AM ( NEEDED) ORAL ONCE DAILY, NOTES: 03/07/2020699 TAKING FLUTICASONE PROPIONATE 50 MCG/ACT SUSPENSION 1 SPRAY IN EACH NOSTRIL NASALLY ONCE A DAY TAKING ACETAMINOPHEN 500 MG CAPSULE 1 CAPSULES NEEDED ORALLY EVERY 6 HRS PRN NOT-TAKING CAMPRAL DOSE THOR 333 MG TABLET DELAYED RELEASE 2 TABLETS ORALLY THREE TIMES A DAY, NOTES: 2 WEEKS AGO NOT-TAKING CHANTIX 1 MG 1 TAB ORALLY BID, NOTES: 02/08/20 AM NOT-TAKING FLUTICASONE PROPIONATE 50 MCG/ACT SUSPENSION 1 SPRAY IN EACH NOSTRIL NASALLY ONCE A DAY MEDICATION LIST REVIEWED AND RECONCILED WITH THE PATIENT PAST MEDICAL HISTORY COMMON VARIABLE IMMUNO DEFICIENCY DISEASE HISTORY OF KIDNEY STONES CHRONIC NECK/MID/LOW BACK PAIN - PAIN CENTER CHRONIC OPIOID USE, OPIOID-INDUCED CONSTIPATION PEPTIC ULCER DISEASE, GERD, S/P GASTRIC BYPASS - DR. MILLER BIPOLAR, ANXIETY, DEPRESSION, ADHD - DR. OTERO MIGRAINE HEADACHES - CAREY NEURO, GETS BOTOX INJECTIONS SURGICAL MENOPAUSE S/P ELIA & BSO (2009) FOR ENDOMETRIOSIS; PRESCRIBED ESTRADIOL BY CHRONIC RHINITIS/SINUSITIS, ALLERGIES RAYNAUD'S SYNDROME ASTHMA, JOSEPH ON BIPAP - Albert CALDWELL, DR. GIBBS HISTORY OF IRON-DEFICIENCY ANEMIA TOBACCO USE; SMOKES 15 CIG/DAY HISTORY OF ALCOHOL USE DISORDER; DRINKS 2 DAYS A WEEK HISTORY OF DRUG ABUSE IN REMISSION; USED IV METH AND IV ECSTASY IN 08/2019 HEART MURMUR - ECHO 10/2017 BORDERLINE LVH, MILD LAE, SUBTLE AV SCLEROSIS, AORTIC SCLEROSIS, MILD AR, MILD MR HTN - CANNY ALLERGIES MORPHINE SULFATE: TACHYCARDIA DILAUDID: TACHYCARDIA REGLAN: HIVES LAMICTAL: WELTS LATEX GLOVES SURGICAL HISTORY BACK SURGERY 1997 LAPAROTOMY X 4 FOR ENDOMET[address] [facility], DR. CRISTOBAL 200S CHOLECYSTECTOMY 07/2008 LUMBAR LAMINECTOMY, [place] 02/2009 HYSTERECTOMY, APPENDECTOMY - FOR ENDOMETRIOSIS 12/2009 GASTRIC BYPASS (DR. CARTAGENA, [facility]) 01/2012 LAPAROSCOPY AND REMOVAL OF ADHESIONS (DR. BARRERA) 12/2012 CHEST TUBE ENDOSCOPY/COLONOSCOPY BLADDER REPAIR 10/2016 LAPROSCOPC SURGERY FOR ENDOMETRIOSIS / LYSIS OF ADHESIONS AND SCAR TISSUE (BOWEL NICKED IN OR). 12/19/17 EGD - ESOPHAGEAL PLAQUE - BIOPSY RESULTS NOT SENT TO US (DR. MILLER) 05/2018 REMOVAL CYSTS IN BILATERAL EARS REMOVAL OF NEEDLE FROM RIGHT FOOT FAMILY HISTORY FATHER: ALIVE, HAD SKIN CANCER, DIAGNOSED WITH UNSPECIFIED CEREBRAL ARTERY OCCLUSION WITH CEREBRAL INFARCTION, OTHER MALIGNANT NEOPLASM OF UNSPECIFIED SITE MOTHER: ALIVE, DIABETES, HYPERTENSION, UNSPECIFIED HEART DISEASE SIBLINGS: ALIVE, SISTER WITH JUAN'S 1 SISTER(S) . DENIES FAMILY HX OF PANCREATIC CANCER, GRANDMOTHER AND FATHER HAD MELANOMA. SOCIAL HISTORY GENERAL: TOBACCO USE ARE YOU A:CURRENT SMOKER ARE YOU INTERESTED IN QUITTING?READY TO QUIT WAITING FOR PRESCRIPTION FOR CHANTIX. COUNSELED THE PATIENT ON TOBACCO USE, CESSATION TGFSRWPU09/29/2020 HOW MANY CIGARETTES A DAY DO YOU SMOKE?11-20 HOW SOON AFTER YOU WAKE UP DO YOU SMOKE YOUR FIRST CIGARETTE?AFTER 60 MIN HOW OFTEN DO YOU SMOKE CIGARETTES?EVERY DAY PATIENT COUNSELED ON THE DANGERS OF TOBACCO USE AND URGED TO QUIT:04/03/2020 SMOKING CESSATION INFORMATION GIVEN04/03/2020 LATEX QUESTIONNAIRE LATEX ALLERGY : HAVE YOU EVER DEVELOPED ANY TYPE OF REACTION AFTER HANDLING LATEX PRODUCTS SUCH RUBBER GLOVES, CONDOMS, DIAPHRAGMS, BALLOONS, SOCKS, OR UNDERWEAR?YES LATEX ALLERGY : HAVE YOU EVER DEVELOPED ANY TYPE OF REACTION DURING OR AFTER DENTAL APPOINTMENT, VAGINAL/RECTAL EXAMINATION, SURGICAL PROCEDURE, OR ANY OTHER EXPOSURE?YES - PLEASE INDICATE :RUBBER GLOVES, CONDOMS, UNDERWEAR, OTHER (DOCUMENT IN NOTES) BRAS - PLEASE INDICATE :VAGINAL EXAM DATE ASKED : 03/07/2020 LATEX RISK : HAVE YOU EVER HAD ANY DIFFICULTY BREATHING OR HIVES AFTER EATING OR HANDLING ANY FRUITS, OR VEGETABLES; SUCH KIWI, BANANAS, STONE FRUITS, OR CHESTNUTSNO LATEX RISK : DO YOU HAVE A PREVIOUS PERSONAL HISTORY OF MORE THAN NINE SURGERIES, SPINA BIFIDA, OR REPEATED CATHERIZATIONS? YES - PLEASE INDICATE : > 9 SURGERIES LATEX RISK : ARE YOU FREQUENTLY EXPOSED TO LATEX PRODUCTS IN YOUR OCCUPATION?NO LUNG CANCER SCREENING SMOKING STATUS:CURRENT SMOKER BMI CARE GOAL FOLLOW-UP ABOVE NORMAL BMI FOLLOW-UPDIETARY MANAGEMENT EDUCATION, GUIDANCE, AND COUNSELING, DIETARY NEEDS EDUCATION, EXERCISE PROMOTION: STRENGTH TRAINING ALCOHOL SCREENING DID YOU HAVE A DRINK CONTAINING ALCOHOL IN THE PAST YEAR?YES HOW OFTEN DID YOU HAVE SIX OR MORE DRINKS ON ONE OCCASION IN THE PAST YEAR?NEVER (0 POINTS) HOW MANY DRINKS DID YOU HAVE ON A TYPICAL DAY WHEN YOU WERE DRINKING IN THE PAST YEAR?1 OR 2 (0 POINTS) HOW OFTEN DID YOU HAVE A DRINK CONTAINING ALCOHOL IN THE PAST YEAR?TWO TO THREE TIMES PER WEEK (3 POINTS) POINTS3 INTERPRETATIONPOSITIVE RECREATIONAL DRUG USE DRUG USE?NO CAFFEINE CAFFEINE USE?YES 6-8 CUPS COFFEE DAILY, SODA ON OCCASIONS SEXUAL HX HAD SEX IN THE LAST 12 MONTHS (VAGINAL, ORAL, OR ANAL)?NO LMP:2009 HAVE YOU EVER HAD AN STD?NO HIV / HEP-C SCREENING HIV TEST OFFERED TO PATIENT:YES DATE OFFERED:03/13/2017 TEST ACCEPTED:NO HEP-C TEST OFFERED TO PATIENT:NO 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 DIET: REGULAR. EXERCISE: NO REGULAR EXERCISE. MARITAL STATUS: SINGLE. OTHERS AT HOME: NONE. NEW PATIENT PAIN DIARY TODAY'S VISIT 02/08/20 PATIENT DESCRIBES PAIN :ACHING, HAVE IT ALL THE TIME, SHARP, STABBING, TENDER, THROBBING, SORE, SHOOTING FROM 0-10, WHAT LEVEL IS YOUR PAIN TODAY?8 PRECIPITATING FACTORS EVERYTHING ALLEVIATING FACTORS HEAT/ICE, MEDS IMPACT ON FUNCTION YES PAIN CLINIC PFS, CLERGY, PUBLIC HEALTH REFERRALS PFS REFERRAL NEEDED?NO CLERGY REFERRAL NEEDED?NO PUBLIC HEALTH REFERRAL NEEDED?NO WAS THE PROVIDER NOTIFIED OF ANY PERTINENT INFO?YES N/A HAS THE PATIENT BEEN EDUCATED REGARDING HIS/HER PLAN OF CARE?YES HAS THE PATIENT BEEN EDUCATED REGARDING PAIN, THE RISK FOR PAIN, THE IMPORTANCE OF EFFECTIVE PAIN MANAGEMENT, AND THE PAIN ASSESSMENT PROCESS?YES ADVANCE DIRECTIVE ADVANCE DIRECTIVE DISCUSSED WITH PATIENT:YES PT DOES NOT HAVE ANY ADVANCED DIREDCTIVES AND SHE DECLINES INFORMATION ON HCP AT THIS TIME. HOSPITALIZATION/MAJOR DIAGNOSTIC PROCEDURE SURGERY RELATED [facility] ([facility]) 05/2012 ADMITTED TO [facility] 12/2015 [facility] 10/2016 [facility] 2 DAY HOSPITAL STAY DUE TO NICKED BOWEL 12/19/2017 PNEUMONIA 2015 & 2018 REHAB 2014 REVIEW OF SYSTEMS CONSTITUTIONAL: ANY RECENT FEVER NO . CHILLS NO . WEIGHT CHANGE OF UNKNOWN REASONS NO . GASTROENTEROLOGY: NEW UNEXPLAINABLE CHANGES IN BOWEL CONTROL NO . CONSTIPATION NO . GENITOURINARY: ANY NEW CHANGE IN BLADDER CONTROL? NO . NEUROLOGY: NEW ONSET DIZZINESS OR NEUROLOGICAL CHANGES NOT MENTIONED NO . NEW NUMBNESS OR PAIN PATTERNS NOT MENTIONED AND PERTINENT TO TODAY'S VISIT NO . CARDIOLOGY: NEW CHEST PRESSURE NO . NEW CHEST PAIN NO . RESPIRATORY: UNEXPLAINABLE COUGH NO . NEW SHORTNESS OF BREATH NO . VITAL SIGNS WT 189.0 LBS, HT 67", BMI 29.60 INDEX, BP 132/81 MM HG, HR 105 /MIN, RR 18 /MIN, TEMP 97.0 F, OXYGEN SAT % 99%, SAFE IN ENV? 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 EXAMINATION GENERAL EXAMINATION: GENERALNO ACUTE DISTRESS, WELL NOURISHED AND HYDRATED. PSYCHAPPROPRIATE MOOD AND AFFECT . LUNGS:CLEAR TO AUSCULTATION BILATERALLY, NO WHEEZES, RHONCHI, RALES. HEART:NO MURMURS, REGULAR RATE AND RHYTHM. BACK:POINT TENDER BILATERAL LUMBAR REGION, SURROUNDING SKIN SHOWS NO ERYTHEMA, ECCHYMOSIS, INCREASED WARMTH, AND/OR SKIN ERUPTIONS NOTED. . ASSESSMENTS OTHER SPONDYLOSIS, LUMBOSACRAL REGION - M47.897 (PRIMARY) TREATMENT OTHER SPONDYLOSIS, LUMBOSACRAL REGION NOTES: RF PROCEDURE L4-L5 L5-S1 RIGHT SIDE. CLINICAL NOTES: 40-YEAR-OLD FEMALE IN FOR POST DIAGNOSTIC FACET BLOCK #2 FOLLOW-UP. GIVEN PRESENTING SYMPTOMS AND RESULTS OF PHYSICAL EXAMINATION RECOMMEND RF PROCEDURE RIGHT SIDE L4-L5 L5-S1 WITH POST PROCEDURAL FOLLOW-UP. DISCUSSED MDMA POSITIVE RESULTS IN U TOX AND INFORMED PATIENT AT THIS TIME THIS UTILITY TECH WILL NO LONGER PRESCRIBE NARCOTICS FOR HER WE DID DISCUSS CONTINUED USE OF LYRICA WHICH WILL BE RESEARCHED FURTHER. PATIENT HAS EXPRESSED UNDERSTANDING OF AND WAS IN AGREEMENT WITH TREATMENT PLAN. GIVEN TIME TO ASK QUESTIONS AND EXPRESS CONCERNS. OTHERS NOTES: RADIOFREQUENCY ABLATION MATERIAL WAS PRINTED. PROCEDURE CODES [id number] ESTABILISHED PATIENT [facility] FACILITY CHARGE DISPOSITION & COMMUNICATION FOLLOW UP POSTPROCEDURE (REASON: RF PROCEDURE L4-L5 L5-S1) ELECTRONICALLY SIGNED BY JAKUB VILLEDA ON 04/04/2020 AT 07:49 AM EDT DISCLAIMER : THIS IS A VISIT SUMMARY EXTRACTED FROM THE [employer] CHART. IT IS NOT A COPY OF THE [employer]BIN[facility] PROGRESS NOTE. GELACIO
== END ==
LOC: M PAIN 10:15
PROVIDERS: ATTEND Family Medicine
DX: M47.897 Other spondylosis, lumbosacral region (principal); F17.210 Nicotine dependence, cigarettes, uncomplicated; Z88.5 Allergy status to narcotic agent; Z88.8 Allergy status to other drugs, medicaments and biological substances; Z91.040 Latex allergy status; Z79.899 Other long term (current) drug therapy

== ENCOUNTER → 2020-04-19 | Outpatient (CLI) | payer OTHER ==
[~2020-04-19] MED LIST changes: +CALC-212 PO; -CALC600T7 PO
== END ==
LOC: M LABSMTC 10:20
PROVIDERS: ATTEND Anesthesiology
DX: Z11.59 Encounter for screening for other viral diseases (principal)
CPT/HCPCS: C9803; U0003

== ENCOUNTER → 2020-04-24 | Outpatient (CLI) | payer OTHER ==
[~2020-04-24] MED LIST changes: +BUPIVACAINE HCL 0.25% 30ML VIAL As Ordered ONE; +LIDOCAINE 1% SDV 30ML VIAL As Ordered ONE; +TRIAMCINOLONE ACETONIDE SUSP 40 MG/ML VIAL (J3301) As Ordered ONE; +dexameTHASONE 10MG/1ML VIAL PRES.FREE (J1100 PER 1MG) As Ordered ONE
--- NOTE | 2020-04-24 13:39 | REP ---
Partial lumbar spine series: Three views . History: Injection procedure for pain. 58 seconds of fluoroscopy time is reported. Findings: A sequence of three fluoroscopically obtained last image hold procedural spot radiographs of the lumbar spine document needle position and contrast injection associated with injection procedure. Electronically Signed by Moshe Carmona MD 04/24/2020 01:30 P
--- NOTE | 2020-04-25 03:07 | ECWPNPC ---
PATIENT NAME: ADELA ALMONTE : 1980 GENDER: FEMALE VISIT DATE: 04/24/2020 DISCHARGE DATE: 04/24/20 1332 VISIT LOCKED DATE TIME: PHYSICIAN: HARRISON ZEPEDA MD RESOURCE: HARRISON ZEPEDA MD REASON FOR APPOINTMENT 1. STANDARD RF RIGHT L4-L5 L5-S1 PAT DONE HISTORY OF PRESENT ILLNESS GENERAL: -. FALL RISK SCREENING: SCREENING :NO FALLS REPORTED IN THE LAST YEAR PAIN SCREENING: PATIENT HAS A COMPLAINT OF ACUTE OR CHRONIC PAIN :YES LOCATION OF PAIN:LOW BACK RIGHT INTENSITY OF PAIN (SCALE OF 1 TO 10):7 WHAT DOES YOUR PAIN FEEL LIKE:ACHING, BURNING, CONTINOUS, SHARP, SHOOTING NURSING NOTE: -. PAIN CENTER INTAKE QUESTIONS: DO YOU HAVE A HISTORY OF MRSA? :YES HEAD, STOMACH, BOILS THAT WERE CONSIDERED MRSA, PT USING HEBICLENS PRIOR TO PROCEDURE DO YOU TAKE A BLOOD THINNERS? :NO DO YOU HAVE ANY BLEEDING DISORDERS? :NO ANY NEW NUMBNESS OR WEAKNESS IN YOUR LEGS OR ARMS? :NO ANY PACEMAKER,DEFIBRILLATOR, OR DORSAL COLUMN STIMULATOR? :NO DO YOU HAVE ANY RASHES OR OPEN SORES? :NO ARE YOU ALLERGIC TO IV DYE? :NO ARE YOU DIABETIC? :NO ANY NEW PROBLEMS WITH YOUR MEDICATIONS? :NO HAVE YOU RECEIVED A VACCINE IN THE PAST 30 DAYS? :NO DO YOU PLAN TO RECEIVE A VACCINE IN THE NEXT 21 DAYS? :NO DO YOU TAKE ANY IMMUNOSUPPRESSIVE MEDICATIONS? :NO ANY HISTORY OF SEIZURES? :NO ANY HISTORY OF CARDIAC ISSUES OR EVENTS? :NO DO YOU HAVE SLEEP APNEA? :YES DO YOU WEAR A CPAP?YES ANY RECENT HEAD INJURY? :NO DO YOU HAVE ANY NEW INFECTIONS? :NO IS THERE A CHANCE YOU COULD BE ? :NO ARE YOU BREAST FEEDING? :NO WHEN DID YOU LAST EAT? : -LAST NIGHT WHEN DID YOU LAST DRINK? : THIS MRONING WHAT DID YOU LAST DRINK? : -WATER NAME OF PERSON DRIVING YOU HOME? : -[employer] DO YOU HAVE ANY OTHER QUESTIONS OR CONCERNS? : - CURRENT MEDICATIONS TAKING VYVANSE 70 MG CAPSULE (SCHEDULE II DRUG) TAKE ONE CAPSULE BY MOUTH EVERY MORNING - MAXIMUM DAILY DOSE ONE CAPSULE ORAL , NOTES: 04-24-20 0700 TAKING BUSPIRONE HCL 30 MG TABLET TAKE ONE TABLET BY MOUTH @6AM AND TAKE ONE TABLET BY MOUTH @8PM ORAL , NOTES: 04-24-20699 TAKING PRAZOSIN HCL 1 MG CAPSULE TAKE ONE CAPSULE BY MOUTH @8PM ORAL , NOTES: 04-24-20699 TAKING IMITREX , NOTES: NOT LATELY TAKING FAMOTIDINE 40 MG TABLET TAKE ONE TABLET BY MOUTH @8PM ORAL , NOTES: 04-23-201899 TAKING AIMOVIG 70 MG/ML SOLUTION AUTO-INJECTOR USE ONCE PER MONTH SUBCUTANEOUS , NOTES: MONTHLY 04-07-20 TAKING ESTRADIOL 0.025 MG/24HR PATCH WEEKLY APPLY ONE PATCH TOPICALLY ONCE PER WEEK TRANSDERMAL , NOTES: 04-24-20699 TAKING PANTOPRAZOLE SODIUM 40 MG TABLET DELAYED RELEASE TAKE ONE TABLET BY MOUTH @6AM ORAL , NOTES: 04-24-30699 TAKING PROMETHAZINE HCL 25 MG TABLET TAKE ONE TABLET BY MOUTH @6AM AND TAKE ONE TABLET BY MOUTH @NOON AND TAKE ONE TABLET BY MOUTH @6PM AND TAKE ONE TABLET BY MOUTH @8PM ORAL , NOTES: 04-24-20699 TAKING MOVANTIK 25 MG TABLET TAKE ONE TABLET BY MOUTH @6AM ORAL , NOTES: 04-24-20799 TAKING FIBER LAXATIVE 0.52 GM CAPSULE TAKE TWO CAPSULES BY MOUTH @6AM AND TAKE TWO CAPSULES @8PM ORAL , NOTES: 04-24-20699 TAKING CUVITRU 4 GM/20ML SOLUTION DIRECTED SUBCUTANEOUS , NOTES: 04-20-20799 TAKING LIDOCAINE HCL 3 % CREAM APPLY TO ABDOMEN 30 MINUTES PRIOR TO INFUSION EXTERNAL , NOTES: A COUPLE DAYS TAKING VRAYLAR 4.5 MG CAPSULE TAKE ONE CAPSULE BY MOUTH AT BEDTIME ORALLY ONCE A DAY, NOTES: 04-23-202099 TAKING BOTOX 100 UNIT SOLUTION RECONSTITUTED DIRECTED INTRAMUSCULAR , NOTES: APRIL 10 TAKING ALBUTEROL SULFATE (2.5 MG/3ML) 0.083% NEBULIZATION SOLUTION 3 ML NEEDED INHALATION EVERY 8 HRS, NOTES: NOT LATELY TAKING VENTOLIN HFA 90 MCG/ACT AEROSOL SOLUTION 1 PUFF NEEDED INHALATION EVERY 4 HRS, NOTES: NOT LATLEY TAKING TOPIRAMATE 50 MG TABLET TAKE ONE TABLET BY MOUTH TWICE DAILY BOTTLE ORAL TWICE DAILY, NOTES: 04-24-20699 TAKING FUROSEMIDE 20 MG TABLET TAKE ONE TABLET BY MOUTH @6AM ORAL , NOTES: 04-24-20699 TAKING NIFEDIPINE 20 MG CAPSULE TAKE ONE CAPSULE BY MOUTH @6AM ORAL , NOTES: 04-24-20699 TAKING AZELASTINE HCL 137 MCG/SPRAY SOLUTION 1 PUFF IN EACH NOSTRIL NASALLY TWICE A DAY, NOTES: 04-24-20699 TAKING CETIRIZINE HCL 10 MG TABLET TAKE ONE TABLET BY MOUTH @6AM ( NEEDED) ORAL ONCE DAILY, NOTES: 04-24-20699 TAKING FLUTICASONE PROPIONATE 50 MCG/ACT SUSPENSION 1 SPRAY IN EACH NOSTRIL NASALLY ONCE A DAY, NOTES: 04-24-20699 TAKING ACETAMINOPHEN 500 MG CAPSULE 1 CAPSULES NEEDED ORALLY EVERY 6 HRS PRN, NOTES: 04-23-201899 TAKING PREGABALIN 200 MG CAPSULE 1 CAPSULE ORAL THREE TIMES DAILY, NOTES: 04-24-20 NOT-TAKING DICYCLOMINE HCL 20 MG TABLET TAKE ONE TABLET BY MOUTH @6AM AND TAKE ONE TABLET @NOON AND TAKE ONE TABLET @8PM ( NEEDED FOR PAIN) ORAL NOT-TAKING OSTEO BI-FLEX REGULAR STRENGTH 250-200 MG TABLET 1 TABLET WITH A MEAL ORALLY ONCE A DAY NOT-TAKING AMMONIUM LACTATE 10 % LOTION 1 APPLICATION TO AFFECTED AREA EXTERNALLY TWICE A DAY NOT-TAKING NICORETTE 4 MG LOZENGE 1 LOZENGE NEEDED MOUTH/THROAT 20 TIME(S) A DAY NOT-TAKING DOXYCYCLINE HYCLATE 100 MG CAPSULE 1 CAPSULE ORALLY TWICE A DAY MEDICATION LIST REVIEWED AND RECONCILED WITH THE PATIENT PAST MEDICAL HISTORY COMMON VARIABLE IMMUNO DEFICIENCY DISEASE HISTORY OF KIDNEY STONES CHRONIC NECK/MID/LOW BACK PAIN - PAIN CENTER CHRONIC OPIOID USE, OPIOID-INDUCED CONSTIPATION PEPTIC ULCER DISEASE, GERD, S/P GASTRIC BYPASS - DR. MILLER BIPOLAR, ANXIETY, DEPRESSION, ADHD - DR. OTERO MIGRAINE HEADACHES - CAREY NEURO, GETS BOTOX INJECTIONS SURGICAL MENOPAUSE S/P ELIA & BSO (2009) FOR ENDOMETRIOSIS; PRESCRIBED ESTRADIOL BY CHRONIC RHINITIS/SINUSITIS, ALLERGIES RAYNAUD'S SYNDROME ASTHMA, JOSEPH ON BIPAP - DR. SAI TIDWELL HISTORY OF IRON-DEFICIENCY ANEMIA TOBACCO USE; SMOKES 15 CIG/DAY HISTORY OF ALCOHOL USE DISORDER; DRINKS 2 DAYS A WEEK HISTORY OF DRUG ABUSE IN REMISSION; USED IV METH AND IV ECSTASY IN 08/2019 HEART MURMUR - ECHO 10/2017 BORDERLINE LVH, MILD LAE, SUBTLE AV SCLEROSIS, AORTIC SCLEROSIS, MILD AR, MILD MR HTN - CANNY ALLERGIES MORPHINE SULFATE: TACHYCARDIA DILAUDID: TACHYCARDIA REGLAN: HIVES LAMICTAL: WELTS LATEX GLOVES SURGICAL HISTORY BACK SURGERY 1997 LAPAROTOMY X 4 FOR ENDOMETRIOSIS AT [facility], DR. CRISTOBAL 200S CHOLECYSTECTOMY 07/2008 LUMBAR LAMINECTOMY, [place] 02/2009 HYSTERECTOMY, APPENDECTOMY - FOR ENDOMETRIOSIS 12/2009 GASTRIC BYPASS (DR. CARTAGENA, [facility]) 01/2012 LAPAROSCOPY AND REMOVAL OF ADHESIONS (DR. BARRERA) 12/2012 CHEST TUBE ENDOSCOPY/COLONOSCOPY BLADDER REPAIR 10/2016 LAPROSCOPC SURGERY FOR ENDOMETRIOSIS / LYSIS OF ADHESIONS AND SCAR TISSUE (BOWEL NICKED IN OR). 12/19/17 EGD - ESOPHAGEAL PLAQUE - BIOPSY RESULTS NOT SENT TO US (DR. MILLER) 05/2018 REMOVAL CYSTS IN BILATERAL EARS REMOVAL OF NEEDLE FROM RIGHT FOOT FAMILY HISTORY FATHER: ALIVE, HAD SKIN CANCER, DIAGNOSED WITH UNSPECIFIED CEREBRAL ARTERY OCCLUSION WITH CEREBRAL INFARCTION, OTHER MALIGNANT NEOPLASM OF UNSPECIFIED SITE MOTHER: ALIVE, HYPERTENSION, UNSPECIFIED HEART DISEASE, DIABETES SIBLINGS: ALIVE, SISTER WITH JUAN'S 1 SISTER(S) . DENIES FAMILY HX OF PANCREATIC CANCER, GRANDMOTHER AND FATHER HAD MELANOMA. SOCIAL HISTORY GENERAL: TOBACCO USE ARE YOU A:CURRENT SMOKER ARE YOU INTERESTED IN QUITTING?READY TO QUIT WAITING FOR PRESCRIPTION FOR CHANTIX. COUNSELED THE PATIENT ON TOBACCO USE, CESSATION [id number]/29/2020 HOW MANY CIGARETTES A DAY DO YOU SMOKE?11-20 HOW SOON AFTER YOU WAKE UP DO YOU SMOKE YOUR FIRST CIGARETTE?AFTER 60 MIN HOW OFTEN DO YOU SMOKE CIGARETTES?EVERY DAY PATIENT COUNSELED ON THE DANGERS OF TOBACCO USE AND URGED TO QUIT:04/21/2020 SMOKING CESSATION INFORMATION GIVEN04/03/2020 LATEX QUESTIONNAIRE LATEX ALLERGY : HAVE YOU EVER DEVELOPED ANY TYPE OF REACTION AFTER HANDLING LATEX PRODUCTS SUCH RUBBER GLOVES, CONDOMS, DIAPHRAGMS, BALLOONS, SOCKS, OR UNDERWEAR?YES - PLEASE INDICATE :RUBBER GLOVES, CONDOMS, UNDERWEAR, OTHER (DOCUMENT IN NOTES) BRAS LATEX ALLERGY : HAVE YOU EVER DEVELOPED ANY TYPE OF REACTION DURING OR AFTER DENTAL APPOINTMENT, VAGINAL/RECTAL EXAMINATION, SURGICAL PROCEDURE, OR ANY OTHER EXPOSURE?YES - PLEASE INDICATE :VAGINAL EXAM LATEX RISK : HAVE YOU EVER HAD ANY DIFFICULTY BREATHING OR HIVES AFTER EATING OR HANDLING ANY FRUITS, OR VEGETABLES; SUCH KIWI, BANANAS, STONE FRUITS, OR CHESTNUTSNO LATEX RISK : DO YOU HAVE A PREVIOUS PERSONAL HISTORY OF MORE THAN NINE SURGERIES, SPINA BIFIDA, OR REPEATED CATHERIZATIONS? YES - PLEASE INDICATE : > 9 SURGERIES LATEX RISK : ARE YOU FREQUENTLY EXPOSED TO LATEX PRODUCTS IN YOUR OCCUPATION?NO DATE ASKED : 04/21/2020 LUNG CANCER SCREENING SMOKING STATUS:CURRENT SMOKER BMI CARE GOAL FOLLOW-UP ABOVE NORMAL BMI FOLLOW-UPDIETARY MANAGEMENT EDUCATION, GUIDANCE, AND COUNSELING, DIETARY NEEDS EDUCATION, EXERCISE PROMOTION: STRENGTH TRAINING ALCOHOL SCREENING DID YOU HAVE A DRINK CONTAINING ALCOHOL IN THE PAST YEAR?YES HOW OFTEN DID YOU HAVE SIX OR MORE DRINKS ON ONE OCCASION IN THE PAST YEAR?NEVER (0 POINTS) HOW MANY DRINKS DID YOU HAVE ON A TYPICAL DAY WHEN YOU WERE DRINKING IN THE PAST YEAR?1 OR 2 (0 POINTS) HOW OFTEN DID YOU HAVE A DRINK CONTAINING ALCOHOL IN THE PAST YEAR?TWO TO THREE TIMES PER WEEK (3 POINTS) POINTS3 INTERPRETATIONPOSITIVE RECREATIONAL DRUG USE DRUG USE?NO CAFFEINE CAFFEINE USE?YES 6-8 CUPS COFFEE DAILY, SODA ON OCCASIONS SEXUAL HX HAD SEX IN THE LAST 12 MONTHS (VAGINAL, ORAL, OR ANAL)?NO LMP:2009 HAVE YOU EVER HAD AN STD?NO HIV / HEP-C SCREENING HIV TEST OFFERED TO PATIENT:YES DATE OFFERED:03/13/2017 TEST ACCEPTED:NO HEP-C TEST OFFERED TO PATIENT:NO REASON:PATIENT DECLINED [id number] L[employer]UAGES SPOKEN:FAROESE EDUCATION LEVEL OF EDUCATION:NOT FINISHED COLLEGE LEARNING BARRIERS / SPECIAL NEEDS CHANGE FROM LAST VISIT?NO 10/07/19 BARRIERS TO LEARNING?NO HEARING IMPAIRED?YES VISION IMPAIRED?YES COGNITIVELY IMPAIRED?NO :CORRECTIVE LENSES READINESS TO LEARN?YES LEARNING PREFERENCES?NO LEARNING CAPABILITIES PRESENT?YES EMOTIONAL BARRIERS?NO SPECIAL DEVICES?NO TOP 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 DIET: REGULAR. EXERCISE: NO REGULAR EXERCISE. MARITAL STATUS: SINGLE. OTHERS AT HOME: NONE. PAIN CLINIC PFS, CLERGY, PUBLIC HEALTH REFERRALS PFS REFERRAL NEEDED?NO CLERGY REFERRAL NEEDED?NO PUBLIC HEALTH REFERRAL NEEDED?NO WAS THE PROVIDER NOTIFIED OF ANY PERTINENT INFO?YES N/A HAS THE PATIENT BEEN EDUCATED REGARDING HIS/HER PLAN OF CARE?YES HAS THE PATIENT BEEN EDUCATED REGARDING PAIN, THE RISK FOR PAIN, THE IMPORTANCE OF EFFECTIVE PAIN MANAGEMENT, AND THE PAIN ASSESSMENT PROCESS?YES ADVANCE DIRECTIVE ADVANCE DIRECTIVE DISCUSSED WITH PATIENT:YES PT DOES NOT HAVE ANY ADVANCED DIREDCTIVES AND SHE DECLINES INFORMATION ON HCP AT THIS TIME. HOSPITALIZATION/MAJOR DIAGNOSTIC PROCEDURE SURGERY RELATED [facility] ([facility]) 05/2012 ADMITTED TO [facility] 12/2015 [facility] - RUPTURED BLADDER 10/2016 [facility] 2 DAY HOSPITAL STAY DUE TO NICKED BOWEL 12/19/2017 PNEUMONIA 2016 & 2018 REHAB 2014 VITAL SIGNS WT 185.0 LBS, HT 67", BMI 28.97 INDEX, BP 130/64 MM HG, HR 94 /MIN, RR 18 /MIN, TEMP 95.9 F, OXYGEN SAT % 98%, NA INITIALS AW 1139, REVIEWED BY: KG. EXAMINATION GENERAL EXAMINATION: THE PATIENT IS ALERT, ORIENTED TIMES THREE AND COOPERATIVE. HEART SHOWS REGULAR RHYTHM, NO MURMURS AND NO GALLOPS. LUNGS ARE CLEAR TO AUSCULTATION. ASSESSMENTS SPONDYLOSIS WITHOUT MYELOPATHY OR RADICULOPATHY, LUMBAR REGION - M47.816 (PRIMARY) SPONDYLOSIS WITHOUT MYELOPATHY OR RADICULOPATHY, LUMBOSACRAL REGION - M47.817 TREATMENT SPONDYLOSIS WITHOUT MYELOPATHY OR RADICULOPATHY, LUMBAR REGION SMC FACET BLOCK (PAIN)[id number] SPONDYLOSIS WITHOUT MYELOPATHY OR RADICULOPATHY, LUMBOSACRAL REGION SMC FACET BLOCK (PAIN)[id number] PROCEDURES PAIN NURSING RECORD PROCEDURE IN ROOM 1227, PHYSICIAN IN ROOM 1237, START 1240, FINISH 1255, PHYSICIAN OUT OF ROOM 1258, OUT OF ROOM 1305 BY STRETCHER, STEROID DEXOMETHASONE, O2 ROOM AIR, ECG NSR, PATIENT SHIELDED YES, SAFETY STRAP NO, PREP OPAL MARRUFO, DRESSING DRY AND INTCT IT WAS APPLIED BY BY DR ZEPEDA LOC: 1. ALERT, ORIENTED RESP: 1. REGULAR, NO DYSPNEA COLOR: 1. PINK SKIN: 1. WARM, DRY POSITION: 1. PRONE VITALS: 118/78 616 97 18 @ 1220 121/54 65 97 16 @1235% 1250 142/67 66 98%Mary GARCIA RN PN RADIOFREQUENCY DATE OF PROCEDURE 04/24/2020 . THERMO LESION RADIOFREQUENCY > 80 DEGREES : STANDARD - THERMO LESION > 80*. CURVE NEEDLE . SIDE: : RIGHT . LEVELS: : L4-L5, L5-S1. NEEDLE/CATHETER/GAUGE: : 20 . CANULA LENGTH: : 100 MM . ACTIVE TIP: : 10 MM . GROUNDING PAD PLACED ON AFFECTED SIDE (MUSCULAR AREA): : LUMBAR (POSTERIOR UPPER THIGH) RIGHT . 1 ST LEVEL: : L3,INITAL POSTIVE SENSORY RESPONE (50 HZ) 0.9,MOTOR RESPONSE (2 HZ-UP TO 3 VOLTS) 3.0 ,PRE-LOCAL IMPEDENCE READING OHMS 220 ,POST-LOCAL IMPEDENCE READING OHMS 175 ,DURING RF IMPEDENCE READING OHMS 172 , 2 ND LEVEL: : L4,INITIAL POSITIVE SENSORY RESPONSE (50 HZ) 0.7,MOTOR RESPONSE (2 HZ- UP TO 3 VOLTS) 3.0 ,PRE-LOCAL IMPEDENCE READING OHMS 180 ,POST-LOCAL IMEPEDENCE READING OHMS 170 ,DURING RF IMPEDENCE READING OHMS 172 , 3 RD LEVEL: : L5,INITIAL POSITIVE SENSORY RESPONSE (50 HZ) 0.5,MOTOR RESPONSE (2HZ- UP TO 3 VOLTS) 3.0 ,PRE- LOCAL IMPEDENCE READING OHMS 224 ,POST-LOCAL IMPEDENCE READING OHMS 188 ,DURING RF IMPEDENCE READING OHMS 176 , PRE PROCEDURE DIAGNOSES 1. LUMBAR SPONDYLOSIS. 2. LUMBOSACRAL SPONDYLOSIS POST PROCEDURE DIAGNOSES 1. LUMBAR SPONDYLOSIS. 2. LUMBOSACRAL SPONDYLOSIS PROCEDURE RIGHT L4-L5 AND RIGHT L5-S1 LUMBAR FACET RADIOFREQUENCY SURGEON DR. HARRISON ZEPEDA MILL TENDER NONE ANESTHESIA LOCAL PRE PROCEDURE REPORT THE PATIENT HAS HISTORY OF CHRONIC LOW BACK PAIN. I EVALUATED THE PATIENT AND REVIEWED THE CHART. I WENT OVER THE RISKS, ALTERNATIVES, AND BENEFITS ASSOCIATED WITH THIS PROCEDURE. I DISCUSSED THAT THE USE OF STEROIDS MAY CONTRIBUTE TO IMMUNOSUPPRESSION OF THE PATIENT'S BODY AGAINST INFECTIONS SUCH COVID-19. THE PATIENT IS AWARE OF THE POTENTIAL COMPLICATIONS ASSOCIATED WITH THIS VIRUS, INCLUDING, BUT NOT LIMITED TO, . THE PATIENT WOULD LIKE TO PROCEED AND GIVE CONSENT TO PERFORMED THE PROCEDURE. THE PATIENT DENIES UNEXPLAINABLE WEIGHT LOSS, FEVER, CHILLS, OR NEW CHANGES IN URINARY OR BOWEL CONTROL. THE PATIENT IS COVID-19 NEGATIVE DESCRIPTION OF PROCEDURE THE PATIENT WAS BROUGHT TO THE PROCEDURE ROOM AND PLACED IN THE PRONE POSITION. THE LUMBOSACRAL AREA WAS CLEANED WITH CHLORAPREP SOLUTION AND DRAPED ASEPTICALLY. THE PROCEDURE WAS DONE UNDER STERILE CONDITIONS. I CHECKED LATERALITY AND THE LEVEL WHERE THE PROCEDURE WAS GOING TO BE PERFORMED WITH THE PATIENT AND THE SUPPORTING STAFF AT THE MOMENT OF THE TIME OUT IN THE PROCEDURE ROOM. UNDER FLUOROSCOPIC GUIDANCE, TARGETS WERE SELECTED AT THE INTERSECTION OF THE RIGHT TRANSVERSE PROCESS OF L4, L5 AND ALA OF S1 WITH ITS RESPECTIVE SUPERIOR ARTICULAR PROCESS. LIDOCAINE WAS USED TO NUMB THE SKIN AND THE SUBCUTANEOUS TISSUE BELOW IT. RADIOFREQUENCY NEEDLES 22-GAUGE, 100 MM, LONG WITH 10 MM ACTIVE CURVE TIP WERE ADVANCED UNDER FLUOROSCOPIC GUIDANCE AND FOLLOWING PATIENT FEEDBACK UNTIL THE TARGET AREA WAS REACHED. POSITION OF THE NEEDLES WAS VERIFIED WITH AP AND LATERAL VIEWS. AFTER PROPER POSITION OF THE NEEDLE WAS ACHIEVED, WE WORKED WITH THE RIGHT SELECTED MEDIAN BRANCHES OF L3, L4 AND THE DORSAL RAMI OF L5. WE MEASURED THE CORRESPONDING IMPEDANCES, SENSORY STIMULATION AND MOTOR RESPONSES INDICATED IN THE RADIOFREQUENCY WORKSHEET. POSITION OF THE NEEDLES WAS VERIFIED AGAIN WITH AP AND LATERAL VIEWS. LIDOCAINE 1%, 2 ML, WAS INJECTED AT EACH LEVEL. RADIOFREQUENCY WAS DONE AT EACH LEVEL AT 80 DEGREES FOR 90 SECONDS. AFTER RADIOFREQUENCY WAS DONE, THE PATIENT RECEIVED BUPIVACAINE 0.125%, 1 ML, WITH DEXAMETHASONE 3 MG AT EACH SITE. THE MEDICATIONS WERE VERIFIED WITH THE NURSE. THERE WAS NO EVIDENCE OF BLOOD, PARESTHESIA OR CEREBROSPINAL FLUID DURING THE PROCEDURE. THE PATIENT WAS SENT TO THE RECOVERY ROOM. THE PATIENT WAS MOVING THE EXTREMITIES AND DOING WELL. THERE WAS NO COMPLICATION DURING THE PROCEDURE. ESTIMATED BLOOD LOSS WAS LESS THAN 5 ML. FLUOROSCOPY TIME WAS 58 SECONDS POST PROCEDURE NOTE THE PROCEDURE DONE WAS DISCUSSED WITH THE PATIENT. THE PATIENT WILL BE SEEN IN A FOLLOW UP IN THE NEXT FEW WEEKS. I AM LOOKING FOR LONG LASTING PAIN RELIEF FOR THE PATIENT WITH THIS INTERVENTION. INSTRUCTIONS WERE GIVEN, QUESTIONS WERE ANSWERED, AND THE PATIENT EXPRESSED UNDERSTANDING AND AGREES WITH THE PLAN. THE PATIENT IS AWARE TO STAY HOME FOR THE NEXT WEEK, IF POSSIBLE, DUE TO COVID-19. I, SANJUANA SERNA, DOCUMENTED THE ABOVE INFORMATION ACTING A SCRIBE FOR DR. ZEPEDA. I HAVE REVIEWED THE ABOVE DOCUMENT, WRITTEN BY SANJUANA SERNA, PIPE LINE WALKER, AND I VERIFY THAT IT IS ACCURATE PROCEDURE CODES 80759 DESTROY LUMB/SAC FACET JNT, MODIFIERS: [place] [address]82 DESTROY L/S FACET JNT ADDL, MODIFIERS: RT DISPOSITION & COMMUNICATION FOLLOW UP F/UP WITH SERVICER COIN MACHINES (REASON: POST STANDARD RF RT L4-L5, L5-S1) ELECTRONICALLY SIGNED BY HARRISON ZEPEDA MD, MD ON 04/24/2020 AT 05:47 PM EDT DISCLAIMER : THIS IS A VISIT SUMMARY EXTRACTED FROM THE [employer] CHART. IT IS NOT A COPY OF THE [employer] PROGRESS NOTE. GELACIO
== END ==
LOC: M PAIN 11:30
PROVIDERS: ATTEND Anesthesiology
DX: M47.816 Spondylosis without myelopathy or radiculopathy, lumbar region (principal); M47.817 Spondylosis without myelopathy or radiculopathy, lumbosacral region
CPT/HCPCS: 64635; 64636; J1100

== ENCOUNTER → 2020-05-22 | Outpatient (CLI) | payer OTHER ==
[~2020-05-22] MED LIST changes: -BUPIVACAINE HCL 0.25% 30ML VIAL As Ordered ONE; -LIDOCAINE 1% SDV 30ML VIAL As Ordered ONE; -TRIAMCINOLONE ACETONIDE SUSP 40 MG/ML VIAL (J3301) As Ordered ONE; -dexameTHASONE 10MG/1ML VIAL PRES.FREE (J1100 PER 1MG) As Ordered ONE
== END ==
LOC: M PAIN 09:45
PROVIDERS: ATTEND Family Medicine
DX: M47.817 Spondylosis without myelopathy or radiculopathy, lumbosacral region (principal)

== ENCOUNTER → 2020-06-14 | Outpatient (CLI) | payer OTHER ==
--- NOTE | 2020-07-04 13:12 | REPPI ---
CHEST X-RAY CLINICAL: Cough and hemoptysis. TECHNIQUE: PA and lateral. COMPARISON: 11/02/2019, 07/14/2018. FINDINGS: Mediastinum and cardiac silhouette are normal. Lung walker demonstrate stable chronic changes. No obvious acute consolidation, effusion, or pneumothorax. Skeletal structures are intact. IMPRESSION: Chronic stable changes. No acute cardiopulmonary process appreciated. If the patient remains symptomatic, consider chest CT for further investigation. [facility]
== END ==
LOC: M PLAIMG 08:28
PROVIDERS: ATTEND Family Medicine
DX: R05 Cough (principal); R04.2 Hemoptysis

== ENCOUNTER → 2020-07-17 | Outpatient (CLI) | payer OTHER ==
--- NOTE | 2020-07-18 13:33 | ECWPNPC ---
PATIENT NAME: ADELA ALMONTE : 1980 GENDER: FEMALE VISIT DATE: 07/17/2020 DISCHARGE DATE: 07/17/20 1112 VISIT LOCKED DATE TIME: PHYSICIAN: RAVEN CORDON PHYSICIAN PAGER NO: ACTIVE RESOURCE: RAVEN CORDON REASON FOR APPOINTMENT 1. BACK HISTORY OF PRESENT ILLNESS DEPRESSION SCREENING: PHQ-2 (2015 EDITION) LITTLE INTEREST OR PLEASURE IN DOING THINGS?NOT AT ALL FEELING DOWN, DEPRESSED, OR HOPELESS?NOT AT ALL TOTAL SCORE0 40-YEAR-OLD FEMALE IN FOR CHRONIC PAIN FOLLOW-UP. SHE RATES HER PAIN CURRENTLY AT AN 8 OUT OF 10 AND DESCRIBES IT ACHING, BURNING, SHARP, STABBING, THROBBING, SORE, AND SHOOTING. PATIENT HAS HAD BILATERAL SIJ'S IN THE PAST WITH GOOD RESULTS AND WE WILL DISCUSS REPEAT PROCEDURES TODAY. GENERAL: -. FALL RISK SCREENING: SCREENING :ONE FALL WITH INJURY IN THE PAST YEAR PATIENT FELL AROUND , HURT RIGHT HIP, BACK, AND KNEE. PATIENT DID NOT SEEK MEDICAL TREATMENT. PAIN SCREENING: PATIENT HAS A COMPLAINT OF ACUTE OR CHRONIC PAIN :YES LOCATION OF PAIN:UPPER BACK, MID BACK, LOW BACK INTENSITY OF PAIN (SCALE OF 1 TO 10):8 WHAT DOES YOUR PAIN FEEL LIKE:ACHING, BURNING, SHARP, STABBING, THROBBING, SORE, SHOOTING DURATION:CONTINOUS, INTERMITTENT, AWAKENS FROM SLEEP PAIN IS INCREASED BY:ACTIVITIES, PROLONGED STANDING PAIN IS DECREASED BY:OTHERS HEAT, ICE, INJECTIONS HELP TO REDUCE PAIN. NURSING NOTE: -. PAIN CENTER INTAKE QUESTIONS: DO YOU HAVE A HISTORY OF MRSA? :YES DO YOU TAKE A BLOOD THINNERS? :NO DO YOU HAVE ANY BLEEDING DISORDERS? :NO ANY NEW NUMBNESS OR WEAKNESS IN YOUR LEGS OR ARMS? :NO ANY PACEMAKER,DEFIBRILLATOR, OR DORSAL COLUMN STIMULATOR? :NO DO YOU HAVE ANY RASHES OR OPEN SORES? :NO ARE YOU ALLERGIC TO IV DYE? :NO ARE YOU DIABETIC? :NO ANY NEW PROBLEMS WITH YOUR MEDICATIONS? :NO HAVE YOU RECEIVED A VACCINE IN THE PAST 30 DAYS? :NO DO YOU PLAN TO RECEIVE A VACCINE IN THE NEXT 21 DAYS? :YES PATIENT IS GETTING THE FLU SHOT SOON. DO YOU NEED ANY PRESCRIPTION? :NO DO YOU TAKE ANY IMMUNOSUPPRESSIVE MEDICATIONS? :NO IS THERE A CHANCE YOU COULD BE ? :NO ARE YOU BREAST FEEDING? :NO CURRENT MEDICATIONS TAKING VYVANSE 70 MG CAPSULE (SCHEDULE II DRUG) TAKE ONE CAPSULE BY MOUTH EVERY MORNING - MAXIMUM DAILY DOSE ONE CAPSULE ORAL , NOTES: 04-24-20699 TAKING BUSPIRONE HCL 30 MG TABLET TAKE ONE TABLET BY MOUTH @6AM AND TAKE ONE TABLET BY MOUTH @8PM ORAL , NOTES: 04-24-20699 TAKING PRAZOSIN HCL 1 MG CAPSULE TAKE ONE CAPSULE BY MOUTH @8PM ORAL , NOTES: 04-24-20699 TAKING IMITREX , NOTES: NOT LATELY TAKING FAMOTIDINE 40 MG TABLET TAKE ONE TABLET BY MOUTH @8PM ORAL , NOTES: 04-23-201899 TAKING AIMOVIG 70 MG/ML SOLUTION AUTO-INJECTOR USE ONCE PER MONTH SUBCUTANEOUS , NOTES: MONTHLY 04-07-20 TAKING ESTRADIOL 0.025 MG/24HR PATCH WEEKLY APPLY ONE PATCH TOPICALLY ONCE PER WEEK TRANSDERMAL , NOTES: 04-24-20699 TAKING PROMETHAZINE HCL 25 MG TABLET TAKE ONE TABLET BY MOUTH @6AM AND TAKE ONE TABLET BY MOUTH @NOON AND TAKE ONE TABLET BY MOUTH @6PM AND TAKE ONE TABLET BY MOUTH @8PM ORAL , NOTES: 04-24-20699 TAKING MOVANTIK 25 MG TABLET TAKE ONE TABLET BY MOUTH @6AM ORAL , NOTES: 04-24-20799 TAKING FIBER LAXATIVE 0.52 GM CAPSULE TAKE TWO CAPSULES BY MOUTH @6AM AND TAKE TWO CAPSULES @8PM ORAL , NOTES: 04-24-20699 TAKING CUVITRU 4 GM/20ML SOLUTION DIRECTED SUBCUTANEOUS , NOTES: 04-20-20799 TAKING LIDOCAINE HCL 3 % CREAM APPLY TO ABDOMEN 30 MINUTES PRIOR TO INFUSION EXTERNAL , NOTES: A COUPLE DAYS TAKING VRAYLAR 4.5 MG CAPSULE TAKE ONE CAPSULE BY MOUTH AT BEDTIME ORALLY ONCE A DAY, NOTES: 04-23-202099 TAKING BOTOX 100 UNIT SOLUTION RECONSTITUTED DIRECTED INTRAMUSCULAR , NOTES: APRIL 10 TAKING ALBUTEROL SULFATE (2.5 MG/3ML) 0.083% NEBULIZATION SOLUTION 3 ML NEEDED INHALATION EVERY 8 HRS, NOTES: NOT LATELY TAKING VENTOLIN HFA 90 MCG/ACT AEROSOL SOLUTION 1 PUFF NEEDED INHALATION EVERY 4 HRS, NOTES: NOT LATLEY TAKING TOPIRAMATE 50 MG TABLET TAKE ONE TABLET BY MOUTH TWICE DAILY BOTTLE ORAL TWICE DAILY, NOTES: 04-24-20699 TAKING FUROSEMIDE 20 MG TABLET TAKE ONE TABLET BY MOUTH @6AM ORAL , NOTES: 04-24-20699 TAKING AZELASTINE HCL 137 MCG/SPRAY SOLUTION 1 PUFF IN EACH NOSTRIL NASALLY TWICE A DAY, NOTES: 04-24-20699 TAKING CETIRIZINE HCL 10 MG TABLET TAKE ONE TABLET BY MOUTH @6AM ( NEEDED) ORAL ONCE DAILY, NOTES: 04-24-20699 TAKING FLUTICASONE PROPIONATE 50 MCG/ACT SUSPENSION 1 SPRAY IN EACH NOSTRIL NASALLY ONCE A DAY, NOTES: 04-24-20699 TAKING ACETAMINOPHEN 500 MG CAPSULE 1 CAPSULES NEEDED ORALLY EVERY 6 HRS PRN, NOTES: 04-23-201899 TAKING PREGABALIN 200 MG CAPSULE 1 CAPSULE ORAL THREE TIMES DAILY, NOTES: 04-24-20 TAKING NIFEDIPINE 20 MG CAPSULE TAKE ONE CAPSULE BY MOUTH @6AM ORAL DAILY, NOTES: 04-24-20699 TAKING PANTOPRAZOLE SODIUM 40 MG TABLET DELAYED RELEASE TAKE ONE TABLET BY MOUTH @6AM ORAL ONCE A DAY, NOTES: 04-24-30699 NOT-TAKING DICYCLOMINE HCL 20 MG TABLET TAKE ONE TABLET BY MOUTH @6AM AND TAKE ONE TABLET @NOON AND TAKE ONE TABLET @8PM ( NEEDED FOR PAIN) ORAL NOT-TAKING OSTEO BI-FLEX REGULAR STRENGTH 250-200 MG TABLET 1 TABLET WITH A MEAL ORALLY ONCE A DAY NOT-TAKING AMMONIUM LACTATE 10 % LOTION 1 APPLICATION TO AFFECTED AREA EXTERNALLY TWICE A DAY NOT-TAKING NICORETTE 4 MG LOZENGE 1 LOZENGE NEEDED MOUTH/THROAT 20 TIME(S) A DAY NOT-TAKING DOXYCYCLINE HYCLATE 100 MG CAPSULE 1 CAPSULE ORALLY TWICE A DAY PAST MEDICAL HISTORY COMMON VARIABLE IMMUNO DEFICIENCY DISEASE HISTORY OF KIDNEY STONES CHRONIC NECK/MID/LOW BACK PAIN - PAIN CENTER CHRONIC OPIOID USE, OPIOID-INDUCED CONSTIPATION PEPTIC ULCER DISEASE, GERD, S/P GASTRIC BYPASS - DR. MILLER BIPOLAR, ANXIETY, DEPRESSION, ADHD - DR. OTERO MIGRAINE HEADACHES - CAREY NEURO, GETS BOTOX INJECTIONS SURGICAL MENOPAUSE S/P ELIA & BSO (2009) FOR ENDOMETRIOSIS; PRESCRIBED ESTRADIOL BY CHRONIC RHINITIS/SINUSITIS, ALLERGIES RAYNAUD'S SYNDROME ASTHMA, JOSEPH ON BIPAP - DR. SAI TIDWELL HISTORY OF IRON-DEFICIENCY ANEMIA TOBACCO USE; SMOKES 15 CIG/DAY HISTORY OF ALCOHOL USE DISORDER; DRINKS 2 DAYS A WEEK HISTORY OF DRUG ABUSE IN REMISSION; USED IV METH AND IV ECSTASY IN 08/2019 HEART MURMUR - ECHO 10/2017 BORDERLINE LVH, MILD LAE, SUBTLE AV SCLEROSIS, AORTIC SCLEROSIS, MILD AR, MILD MR HTN - CANNY ALLERGIES MORPHINE SULFATE: TACHYCARDIA DILAUDID: TACHYCARDIA REGLAN: HIVES LAMICTAL: WELTS LATEX GLOVES SURGICAL HISTORY BACK SURGERY 1997 LAPAROTOMY X 4 FOR ENDOMETRIOSIS AT [facility], DR. CRISTOBAL 200S CHOLECYSTECTOMY 07/2008 LUMBAR LAMINECTOMY, [place] 02/2009 HYSTERECTOMY, APPENDECTOMY - FOR ENDOMETRIOSIS 12/2009 GASTRIC BYPASS (DR. CARTAGENA, [facility]) 01/2012 LAPAROSCOPY AND REMOVAL OF ADHESIONS (DR. BARRERA) 12/2012 CHEST TUBE ENDOSCOPY/COLONOSCOPY BLADDER REPAIR 10/2016 LAPROSCOPC SURGERY FOR ENDOMETRIOSIS / LYSIS OF ADHESIONS AND SCAR TISSUE (BOWEL NICKED IN OR). 12/19/17 EGD - ESOPHAGEAL PLAQUE - BIOPSY RESULTS NOT SENT TO US (DR. MILLER) 05/2018 REMOVAL CYSTS IN BILATERAL EARS REMOVAL OF NEEDLE FROM RIGHT FOOT FAMILY HISTORY FATHER: ALIVE, HAD SKIN CANCER, DIAGNOSED WITH OTHER MALIGNANT NEOPLASM OF UNSPECIFIED SITE, UNSPECIFIED CEREBRAL ARTERY OCCLUSION WITH CEREBRAL INFARCTION MOTHER: ALIVE, HYPERTENSION, UNSPECIFIED HEART DISEASE, DIABETES SIBLINGS: ALIVE, SISTER WITH JUAN'S 1 SISTER(S) . DENIES FAMILY HX OF PANCREATIC CANCER, GRANDMOTHER AND FATHER HAD MELANOMA. SOCIAL HISTORY GENERAL: TOBACCO USE ARE YOU A:CURRENT SMOKER ARE YOU INTERESTED IN QUITTING?READY TO QUIT WAITING FOR PRESCRIPTION FOR CHANTIX. COUNSELED THE PATIENT ON TOBACCO USE, CESSATION VNORHPPA56/12/2020 HOW MANY CIGARETTES A DAY DO YOU SMOKE?11-20 HOW SOON AFTER YOU WAKE UP DO YOU SMOKE YOUR FIRST CIGARETTE?AFTER 60 MIN HOW OFTEN DO YOU SMOKE CIGARETTES?EVERY DAY PATIENT COUNSELED ON THE DANGERS OF TOBACCO USE AND URGED TO QUIT:07/17/2020 SMOKING CESSATION INFORMATION GIVEN04/03/2020 LATEX QUESTIONNAIRE LATEX ALLERGY : HAVE YOU EVER DEVELOPED ANY TYPE OF REACTION AFTER HANDLING LATEX PRODUCTS SUCH RUBBER GLOVES, CONDOMS, DIAPHRAGMS, BALLOONS, SOCKS, OR UNDERWEAR?YES - PLEASE INDICATE :RUBBER GLOVES, CONDOMS, UNDERWEAR, OTHER (DOCUMENT IN NOTES) BRAS LATEX ALLERGY : HAVE YOU EVER DEVELOPED ANY TYPE OF REACTION DURING OR AFTER DENTAL APPOINTMENT, VAGINAL/RECTAL EXAMINATION, SURGICAL PROCEDURE, OR ANY OTHER EXPOSURE?YES - PLEASE INDICATE :VAGINAL EXAM LATEX RISK : HAVE YOU EVER HAD ANY DIFFICULTY BREATHING OR HIVES AFTER EATING OR HANDLING ANY FRUITS, OR VEGETABLES; SUCH KIWI, BANANAS, STONE FRUITS, OR CHESTNUTSNO LATEX RISK : DO YOU HAVE A PREVIOUS PERSONAL HISTORY OF MORE THAN NINE SURGERIES, SPINA BIFIDA, OR REPEATED CATHERIZATIONS? YES - PLEASE INDICATE : > 9 SURGERIES LATEX RISK : ARE YOU FREQUENTLY EXPOSED TO LATEX PRODUCTS IN YOUR OCCUPATION?NO DATE ASKED : 07/17/2020 LUNG CANCER SCREENING SMOKING STATUS:CURRENT SMOKER BMI CARE GOAL FOLLOW-UP ABOVE NORMAL BMI FOLLOW-UPDIETARY MANAGEMENT EDUCATION, GUIDANCE, AND COUNSELING, DIETARY NEEDS EDUCATION, EXERCISE PROMOTION: STRENGTH TRAINING ALCOHOL SCREENING DID YOU HAVE A DRINK CONTAINING ALCOHOL IN THE PAST YEAR?YES HOW OFTEN DID YOU HAVE A DRINK CONTAINING ALCOHOL IN THE PAST YEAR?TWO TO THREE TIMES PER WEEK (3 POINTS) HOW MANY DRINKS DID YOU HAVE ON A TYPICAL DAY WHEN YOU WERE DRINKING IN THE PAST YEAR?1 OR 2 (0 POINTS) HOW OFTEN DID YOU HAVE SIX OR MORE DRINKS ON ONE OCCASION IN THE PAST YEAR?NEVER (0 POINTS) POINTS3 INTERPRETATIONPOSITIVE RECREATIONAL DRUG USE DRUG USE?NO CAFFEINE CAFFEINE USE?YES 6-8 CUPS COFFEE DAILY, SODA ON OCCASIONS SEXUAL HX HAD SEX IN THE LAST 12 MONTHS (VAGINAL, ORAL, OR ANAL)?NO LMP:2009 HAVE YOU EVER HAD AN STD?NO HIV / HEP-C SCREENING HIV TEST OFFERED TO PATIENT:YES DATE OFFERED:03/13/2017 TEST ACCEPTED:NO HEP-C TEST OFFERED TO PATIENT:NO REASON:PATIENT DECLINED ANGLICAN [id number] SCIENTOLOGIST LANGUAGE LANGUAGES SPOKEN:TONGAN EDUCATION LEVEL OF EDUCATION:NOT FINISHED COLLEGE LEARNING BARRIERS / SPECIAL NEEDS CHANGE FROM LAST VISIT?NO 10/07/19 BARRIERS TO LEARNING?NO HEARING IMPAIRED?YES VISION IMPAIRED?YES COGNITIVELY IMPAIRED?NO :CORRECTIVE LENSES READINESS TO LEARN?YES LEARNING PREFERENCES?NO LEARNING CAPABILITIES PRESENT?YES EMOTIONAL BARRIERS?NO SPECIAL DEVICES?NO MANAGEMENT ENGINEER NEEDED?NO DOMESTIC VIOLENCE DO YOU FEEL SAFE IN YOUR ENVIRONMENT?YES OCCUPATION: UNEMPLOYED. DIET: REGULAR. EXERCISE: NO REGULAR EXERCISE. MARITAL STATUS: SINGLE. OTHERS AT HOME: NONE. PAIN CLINIC PFS, CLERGY, PUBLIC HEALTH REFERRALS PFS REFERRAL NEEDED?NO CLERGY REFERRAL NEEDED?NO PUBLIC HEALTH REFERRAL NEEDED?NO WAS THE PROVIDER NOTIFIED OF ANY PERTINENT INFO?YES N/A HAS THE PATIENT BEEN EDUCATED REGARDING HIS/HER PLAN OF CARE?YES HAS THE PATIENT BEEN EDUCATED REGARDING PAIN, THE RISK FOR PAIN, THE IMPORTANCE OF EFFECTIVE PAIN MANAGEMENT, AND THE PAIN ASSESSMENT PROCESS?YES ADVANCE DIRECTIVE ADVANCE DIRECTIVE DISCUSSED WITH PATIENT:YES PT DOES NOT HAVE ANY ADVANCED DIREDCTIVES AND SHE DECLINES INFORMATION ON HCP AT THIS TIME. HOSPITALIZATION/MAJOR DIAGNOSTIC PROCEDURE SURGERY RELATED [facility] ([facility]) 05/2012 ADMITTED TO [facility] 12/2015 [facility] - [facility]URED BLADDER 10/2016 [facility] 2 DAY HOSPITAL STAY DUE TO NICKED BOWEL 12/19/2017 PNEUMONIA 2015 & 2017 REHAB 2014 REVIEW OF SYSTEMS CONSTITUTIONAL: ANY RECENT FEVER NO . CHILLS NO . WEIGHT CHANGE OF UNKNOWN REASONS NO . GASTROENTEROLOGY: NEW UNEXPLAINABLE CHANGES IN BOWEL CONTROL NO . CONSTIPATION NO . GENITOURINARY: ANY NEW CHANGE IN BLADDER CONTROL? NO . NEUROLOGY: NEW ONSET DIZZINESS OR NEUROLOGICAL CHANGES NOT MENTIONED NO . NEW NUMBNESS OR PAIN PATTERNS NOT MENTIONED AND PERTINENT TO TODAY'S VISIT NO . CARDIOLOGY: NEW CHEST PRESSURE NO . NEW CHEST PAIN NO . RESPIRATORY: UNEXPLAINABLE COUGH NO . NEW SHORTNESS OF BREATH NO . VITAL SIGNS WT 188.2 LBS, HT 67", BMI 29.47 INDEX, BP 122/72 MM HG, HR 99 /MIN, RR 18 /MIN, TEMP 97.0 F, OXYGEN SAT % 99%, NA INITIALS AW 1039, REVIEWED BY: [facility]. EXAMINATION GENERAL EXAMINATION: GENERALNO ACUTE DISTRESS, WELL NOURISHED AND HYDRATED. PSYCHAPPROPRIATE MOOD AND AFFECT . LUNGS:CLEAR TO AUSCULTATION BILATERALLY, NO WHEEZES, RHONCHI, RALES. HEART:NO MURMURS, REGULAR RATE AND RHYTHM. BACK:POINT TENDER BILATERAL SIJ, POSITIVE KAR'S TEST RIGHT SIDE . ASSESSMENTS SACROILIITIS, NOT ELSEWHERE CLASSIFIED - M46.1 (PRIMARY) LUMBAR RADICULOPATHY - M54.16 TREATMENT SACROILIITIS, NOT ELSEWHERE CLASSIFIED CLINICAL NOTES: 40-YEAR-OLD FEMALE IN FOR CHRONIC PAIN FOLLOW-UP. GIVEN PRESENTING SYMPTOMS AND RESULTS OF PHYSICAL EXAMINATION RECOMMENDED BILATERAL SIJ WITH POST PROCEDURAL FOLLOW-UP. FURTHER RECOMMENDED MRI OF THE LUMBAR SPINE FOR FURTHER EVALUATION. PATIENT HAS EXPRESSED UNDERSTANDING OF AND WAS IN AGREEMENT WITH TREATMENT PLAN. GIVEN TIME TO ASK QUESTIONS AND EXPRESS CONCERNS. LUMBAR RADICULOPATHY [facility] MRI LUMBAR W/O CONTRAST (CPT [id number] [facility] PAIN CLINIC TEACHING: THE PATIENT HAS BEEN EDUCATED REGARDING PAIN, THE RISK FOR PAIN, THE IMPORTANCE OF EFFECTIVE PAIN MANAGEMENT, AND THE PAIN ASSESSMENT PROCESS. : DISCUSSED PRE PROCEDURE INSTRUCTIONS AND TEACHING FOR: BILATERAL SACROILIAC JOINT BLOCK , PATIENT VERBALIZES UNDERSTANDING. DISPOSITION & COMMUNICATION FOLLOW UP POSTPROCEDURE (REASON: BILATERAL SIJ, LUMBAR MRI) ELECTRONICALLY SIGNED BY JAKUB VILLEDA ON 07/18/2020 AT 12:55 PM EDT DISCLAIMER : THIS IS A VISIT SUMMARY EXTRACTED FROM THE [facility] CHART. IT IS NOT A COPY OF THE [facility] PROGRESS NOTE. GELACIO
== END ==
LOC: M PAIN 10:30
PROVIDERS: ATTEND Family Medicine
DX: M46.1 Sacroiliitis, not elsewhere classified (principal); D83.9 Common variable immunodeficiency, unspecified; K59.09 Other constipation; K21.9 Gastro-esophageal reflux disease without esophagitis; F31.9 Bipolar disorder, unspecified; F41.9 Anxiety disorder, unspecified; I73.00 Raynaud's syndrome without gangrene; J45.909 Unspecified asthma, uncomplicated; F17.210 Nicotine dependence, cigarettes, uncomplicated; F10.10 Alcohol abuse, uncomplicated; Z79.899 Other long term (current) drug therapy; Z88.5 Allergy status to narcotic agent; Z88.8 Allergy status to other drugs, medicaments and biological substances; Z91.040 Latex allergy status

== ENCOUNTER → 2020-07-22 | Outpatient (CLI) | payer OTHER | LOC: M LABSMTC 11:26 | PROVIDERS: ATTEND Anesthesiology | DX: Z20.828 Contact with and (suspected) exposure to other viral communicable diseases (principal) | CPT/HCPCS: C9803; U0003 ==

== ENCOUNTER → 2020-07-27 | Outpatient (CLI) | payer OTHER ==
[~2020-07-27] MED LIST changes: +BUPIVACAINE HCL 0.25% 30ML VIAL As Ordered ONE; +ISOVUE-M 300 61% 15ML VIAL As Ordered ONE; +LIDOCAINE 1% SDV 30ML VIAL As Ordered ONE; +ONDANSETRON 4 MG ORAL DISINTEGRATING TAB As Ordered ONE; +TRIAMCINOLONE ACETONIDE SUSP 40 MG/ML VIAL (J3301) As Ordered ONE; +diazePAM 5 MG TAB As Ordered ONE; +diphenhydrAMINE 25MG CAP As Ordered ONE; +oxyCODONE 5MG TAB As Ordered ONE
--- NOTE | 2020-07-27 15:43 | REP ---
INDICATION: BILATERAL SACROILIAC JOINT BLOCK. Pain. COMPARISON: None. TECHNIQUE: Multiple C-arm views of sacroiliac joints performed bilaterally. FINDINGS: A needle overlies each sacroiliac joint. IMPRESSION: 44 seconds of fluoroscopy time was utilized. <Electronically signed by Chava Mendes > 07/27/20 1851
--- NOTE | 2020-07-31 17:01 | ECWPNPC ---
PATIENT NAME: ADELA ALMONTE : 1980 GENDER: FEMALE VISIT DATE: 07/27/2020 DISCHARGE DATE: 07/27/201541 VISIT LOCKED DATE TIME: PHYSICIAN: HARRISON ZEPEDA MD PHYSICIAN PAGER NO: ACTIVE RESOURCE: HARRISON ZEPEDA MD REASON FOR APPOINTMENT 1. BILATERAL SIJ HISTORY OF PRESENT ILLNESS GENERAL: -. FALL RISK SCREENING: SCREENING :ONE FALL WITH INJURY IN THE PAST YEAR NO REPORT TO ED, SEEN BY Jose Elias CORDON POST FALL. PAIN SCREENING: PATIENT HAS A COMPLAINT OF ACUTE OR CHRONIC PAIN :YES LOCATION OF PAIN:LOW BACK, LEG(S) INTENSITY OF PAIN (SCALE OF 1 TO 10):7 WHAT DOES YOUR PAIN FEEL LIKE:ACHING, BURNING, CONTINOUS, INTERMITTENT, SHARP, STABBING, TENDER, THROBBING, SORE, SHOOTING DURATION:CONSTANT, ALL DAY, PERIODIC PAIN IS INCREASED BY:ACTIVITIES SITTING, STANDING, WALKING PAIN IS DECREASED BY:USE OF PAIN MEDICATIONS, OTHERS HEAT, ICE NURSING NOTE: -. PAIN CENTER INTAKE QUESTIONS: DO YOU HAVE A HISTORY OF MRSA? 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 PT STATES THAT SHE EXPERIENCES MRSA AFTER SURGERY WITH INCISION DO YOU TAKE A BLOOD THINNERS? :NO DO YOU HAVE ANY BLEEDING DISORDERS? :NO ANY NEW NUMBNESS OR WEAKNESS IN YOUR LEGS OR ARMS? :NO ANY PACEMAKER,DEFIBRILLATOR, OR DORSAL COLUMN STIMULATOR? :NO DO YOU HAVE ANY RASHES OR OPEN SORES? :NO ARE YOU ALLERGIC TO IV DYE? :NO ARE YOU DIABETIC? :NO ANY NEW PROBLEMS WITH YOUR MEDICATIONS? :NO HAVE YOU RECEIVED A VACCINE IN THE PAST 30 DAYS? :YES IF SO WHAT VACCINE AND WHEN? BOTOX ON HEAD DO YOU PLAN TO RECEIVE A VACCINE IN THE NEXT 21 DAYS? :YES IF SO WHAT VACCINE AND WHEN? PT AWARE THAT SHE IS NOT TO HAVE FLU VACCINATION FOR 3 WEEKS POST PROCEDURE DO YOU TAKE ANY IMMUNOSUPPRESSIVE MEDICATIONS? :NO ANY HISTORY OF SEIZURES? :NO ANY HISTORY OF CARDIAC ISSUES OR EVENTS? :NO DO YOU HAVE SLEEP APNEA? :YES DO YOU WEAR A CPAP? PT HAS CPAP AND DOES NOT WEAR IT ANY RECENT HEAD INJURY? :NO DO YOU HAVE ANY NEW INFECTIONS? :NO IS THERE A CHANCE YOU COULD BE ? :NO ARE YOU BREAST FEEDING? :NO WHEN DID YOU LAST EAT? : 07/26 2000 WHEN DID YOU LAST DRINK? : 07/27 700 WHAT DID YOU LAST DRINK? : WATER NAME OF PERSON DRIVING YOU HOME? : -[employer] DO YOU HAVE ANY OTHER QUESTIONS OR CONCERNS? : -PT STATES THAT SHE HAD UPPER RESPIRATORY INFECTION AND SINUSITIS ABOUT ONE MONTH AGO CURRENT MEDICATIONS TAKING VYVANSE 70 MG CAPSULE (SCHEDULE II DRUG) TAKE ONE CAPSULE BY MOUTH EVERY MORNING - MAXIMUM DAILY DOSE ONE CAPSULE ORAL , NOTES: 07/27 700 TAKING BUSPIRONE HCL 30 MG TABLET TAKE ONE TABLET BY MOUTH @6AM AND TAKE ONE TABLET BY MOUTH @8PM ORAL , NOTES: 07/27 700 TAKING PRAZOSIN HCL 1 MG CAPSULE TAKE ONE CAPSULE BY MOUTH @8PM ORAL , NOTES: 07/26 2000 TAKING IMITREX 4 MG/0.5 ML 1 INJECTION SUBCUTANEOUS NEEDED, NOTES: NONE RECENT TAKING FAMOTIDINE 40 MG TABLET TAKE ONE TABLET BY MOUTH @8PM ORAL , NOTES: 07/26 2000 TAKING AIMOVIG 70 MG/ML SOLUTION AUTO-INJECTOR USE ONCE PER MONTH SUBCUTANEOUS , NOTES: 07/08 TAKING ESTRADIOL 0.025 MG/24HR PATCH WEEKLY APPLY ONE PATCH TOPICALLY ONCE PER WEEK TRANSDERMAL , NOTES: 07/19 TAKING PROMETHAZINE HCL 25 MG TABLET TAKE ONE TABLET BY MOUTH @6AM AND TAKE ONE TABLET BY MOUTH @NOON AND TAKE ONE TABLET BY MOUTH @6PM AND TAKE ONE TABLET BY MOUTH @8PM ORAL , NOTES: 07/27 700 TAKING MOVANTIK 25 MG TABLET TAKE ONE TABLET BY MOUTH @6AM ORAL , NOTES: 07/27 700 TAKING FIBER LAXATIVE 0.52 GM CAPSULE TAKE TWO CAPSULES BY MOUTH @6AM AND TAKE TWO CAPSULES @8PM ORAL , NOTES: 07/27 700 TAKING CUVITRU 4 GM/20ML SOLUTION DIRECTED SUBCUTANEOUS , NOTES: 07/20 TAKING LIDOCAINE HCL 3 % CREAM APPLY TO ABDOMEN 30 MINUTES PRIOR TO INFUSION EXTERNAL , NOTES: 07/20 TAKING VRAYLAR 4.5 MG CAPSULE TAKE ONE CAPSULE BY MOUTH AT BEDTIME ORALLY ONCE A DAY, NOTES: 07/26 2000 TAKING BOTOX 100 UNIT SOLUTION RECONSTITUTED DIRECTED INTRAMUSCULAR , NOTES: 07/26 TAKING ALBUTEROL SULFATE (2.5 MG/3ML) 0.083% NEBULIZATION SOLUTION 3 ML NEEDED INHALATION EVERY 8 HRS, NOTES: NONE RECENT TAKING VENTOLIN HFA 90 MCG/ACT AEROSOL SOLUTION 1 PUFF NEEDED INHALATION EVERY 4 HRS, NOTES: NONE RECENT TAKING TOPIRAMATE 50 MG TABLET TAKE ONE TABLET BY MOUTH TWICE DAILY BOTTLE ORAL TWICE DAILY, NOTES: 07/27 700 TAKING AZELASTINE HCL 137 MCG/SPRAY SOLUTION 1 PUFF IN EACH NOSTRIL NASALLY TWICE A DAY, NOTES: 07/27 700 TAKING CETIRIZINE HCL 10 MG TABLET TAKE ONE TABLET BY MOUTH @6AM ( NEEDED) ORAL ONCE DAILY, NOTES: 07/27 700 TAKING FLUTICASONE PROPIONATE 50 MCG/ACT SUSPENSION 1 SPRAY IN EACH NOSTRIL NASALLY ONCE A DAY, NOTES: 07/27 700 TAKING ACETAMINOPHEN 500 MG CAPSULE 1 CAPSULES NEEDED ORALLY EVERY 6 HRS PRN, NOTES: 07/26 1330 TAKING PREGABALIN 200 MG CAPSULE 1 CAPSULE ORAL THREE TIMES DAILY, NOTES: 07/27 700 TAKING NIFEDIPINE 20 MG CAPSULE TAKE ONE CAPSULE BY MOUTH @6AM ORAL DAILY, NOTES: 07/27 700 TAKING PANTOPRAZOLE SODIUM 40 MG TABLET DELAYED RELEASE TAKE ONE TABLET BY MOUTH @6AM ORAL ONCE A DAY, NOTES: 07/27 700 TAKING FUROSEMIDE 20 MG TABLET TAKE ONE TABLET BY MOUTH @6AM , NOTES: 07/27 700 NOT-TAKING DICYCLOMINE HCL 20 MG TABLET TAKE ONE TABLET BY MOUTH @6AM AND TAKE ONE TABLET @NOON AND TAKE ONE TABLET @8PM ( NEEDED FOR PAIN) ORAL NOT-TAKING OSTEO BI-FLEX REGULAR STRENGTH 250-200 MG TABLET 1 TABLET WITH A MEAL ORALLY ONCE A DAY NOT-TAKING AMMONIUM LACTATE 10 % LOTION 1 APPLICATION TO AFFECTED AREA EXTERNALLY TWICE A DAY NOT-TAKING NICORETTE 4 MG LOZENGE 1 LOZENGE NEEDED MOUTH/THROAT 20 TIME(S) A DAY NOT-TAKING DOXYCYCLINE HYCLATE 100 MG CAPSULE 1 CAPSULE ORALLY TWICE A DAY MEDICATION LIST REVIEWED AND RECONCILED WITH THE PATIENT PAST MEDICAL HISTORY COMMON VARIABLE IMMUNO DEFICIENCY DISEASE HISTORY OF KIDNEY STONES CHRONIC NECK/MID/LOW BACK PAIN - PAIN CENTER CHRONIC OPIOID USE, OPIOID-INDUCED CONSTIPATION PEPTIC ULCER DISEASE, GERD, S/P GASTRIC BYPASS - DR. MILLER BIPOLAR, ANXIETY, DEPRESSION, ADHD - DR. OTERO MIGRAINE HEADACHES - CAREY NEURO, GETS BOTOX INJECTIONS SURGICAL MENOPAUSE S/P ELIA & BSO (2009) FOR ENDOMETRIOSIS; PRESCRIBED ESTRADIOL BY CHRONIC RHINITIS/SINUSITIS, ALLERGIES RAYNAUD'S SYNDROME ASTHMA, JOSEPH ON BIPAP - DR. SAI TIDWELL HISTORY OF IRON-DEFICIENCY ANEMIA TOBACCO USE; SMOKES 15 CIG/DAY HISTORY OF ALCOHOL USE DISORDER; DRINKS 2 DAYS A WEEK HISTORY OF DRUG ABUSE IN REMISSION; USED IV METH AND IV ECSTASY IN 08/2019 HEART MURMUR - ECHO 10/2017 BORDERLINE LVH, MILD LAE, SUBTLE AV SCLEROSIS, AORTIC SCLEROSIS, MILD AR, MILD MR HTN - CANNY ALLERGIES MORPHINE SULFATE: TACHYCARDIA DILAUDID: TACHYCARDIA REGLAN: HIVES LAMICTAL: WELTS LATEX GLOVES SURGICAL HISTORY BACK SURGERY 1997 LAPAROTOMY X 4 FOR ENDOMETRIOSIS AT [facility], DR. CRISTOBAL 200S CHOLECYSTECTOMY 07/2008 LUMBAR LAMINECTOMY, [place] 02/2009 HYSTERECTOMY, APPENDECTOMY - FOR ENDOMETRIOSIS 12/2009 GASTRIC BYPASS (DR. CARTAGENA, [facility]) 01/2012 LAPAROSCOPY AND REMOVAL OF ADHESIONS (DR. BARRERA) 12/2012 CHEST TUBE ENDOSCOPY/COLONOSCOPY BLADDER REPAIR 10/2016 LAPROSCOPC SURGERY FOR ENDOMETRIOSIS / LYSIS OF ADHESIONS AND SCAR TISSUE (BOWEL NICKED IN OR). 12/19/17 EGD - ESOPHAGEAL PLAQUE - BIOPSY RESULTS NOT SENT TO US (DR. MILLER) 05/2018 REMOVAL CYSTS IN BILATERAL EARS REMOVAL OF NEEDLE FROM RIGHT FOOT FAMILY HISTORY FATHER: ALIVE, HAD SKIN CANCER, DIAGNOSED WITH UNSPECIFIED CEREBRAL ARTERY OCCLUSION WITH CEREBRAL INFARCTION, OTHER MALIGNANT NEOPLASM OF UNSPECIFIED SITE MOTHER: ALIVE, HYPERTENSION, UNSPECIFIED HEART DISEASE, DIABETES SIBLINGS: ALIVE, SISTER WITH JUAN'S 1 SISTER(S) . DENIES FAMILY HX OF PANCREATIC CANCER, GRANDMOTHER AND FATHER HAD MELANOMA. SOCIAL HISTORY GENERAL: TOBACCO USE ARE YOU A:CURRENT SMOKER ARE YOU INTERESTED IN QUITTING?READY TO QUIT WAITING FOR PRESCRIPTION FOR CHANTIX. COUNSELED THE PATIENT ON TOBACCO USE, CESSATION [id number]/12/2020 HOW MANY CIGARETTES A DAY DO YOU SMOKE?11-20 HOW SOON AFTER YOU WAKE UP DO YOU SMOKE YOUR FIRST CIGARETTE?AFTER 60 MIN HOW OFTEN DO YOU SMOKE CIGARETTES?EVERY DAY PATIENT COUNSELED ON THE DANGERS OF TOBACCO USE AND URGED TO QUIT:07/26/2020 SMOKING CESSATION INFORMATION GIVEN04/03/2020 LATEX QUESTIONNAIRE LATEX ALLERGY : HAVE YOU EVER DEVELOPED ANY TYPE OF REACTION AFTER HANDLING LATEX PRODUCTS SUCH RUBBER GLOVES, CONDOMS, DIAPHRAGMS, BALLOONS, SOCKS, OR UNDERWEAR?YES - PLEASE INDICATE :RUBBER GLOVES, CONDOMS, UNDERWEAR, OTHER (DOCUMENT IN NOTES) BRAS LATEX ALLERGY : HAVE YOU EVER DEVELOPED ANY TYPE OF REACTION DURING OR AFTER DENTAL APPOINTMENT, VAGINAL/RECTAL EXAMINATION, SURGICAL PROCEDURE, OR ANY OTHER EXPOSURE?YES - PLEASE INDICATE :VAGINAL EXAM LATEX RISK : HAVE YOU EVER HAD ANY DIFFICULTY BREATHING OR HIVES AFTER EATING OR HANDLING ANY FRUITS, OR VEGETABLES; SUCH KIWI, BANANAS, STONE FRUITS, OR CHESTNUTSNO LATEX RISK : DO YOU HAVE A PREVIOUS PERSONAL HISTORY OF MORE THAN NINE SURGERIES, SPINA BIFIDA, OR REPEATED CATHERIZATIONS? YES - PLEASE INDICATE : > 9 SURGERIES LATEX RISK : ARE YOU FREQUENTLY EXPOSED TO LATEX PRODUCTS IN YOUR OCCUPATION?NO DATE ASKED : 07/26/2020 LUNG CANCER SCREENING SMOKING STATUS:CURRENT SMOKER BMI CARE GOAL FOLLOW-UP ABOVE NORMAL BMI FOLLOW-UPDIETARY MANAGEMENT EDUCATION, GUIDANCE, AND COUNSELING, DIETARY NEEDS EDUCATION, EXERCISE PROMOTION: STRENGTH TRAINING ALCOHOL SCREENING DID YOU HAVE A DRINK CONTAINING ALCOHOL IN THE PAST YEAR?YES HOW OFTEN DID YOU HAVE SIX OR MORE DRINKS ON ONE OCCASION IN THE PAST YEAR?NEVER (0 POINTS) HOW MANY DRINKS DID YOU HAVE ON A TYPICAL DAY WHEN YOU WERE DRINKING IN THE PAST YEAR?1 OR 2 (0 POINTS) HOW OFTEN DID YOU HAVE A DRINK CONTAINING ALCOHOL IN THE PAST YEAR?TWO TO THREE TIMES PER WEEK (3 POINTS) POINTS3 INTERPRETATIONPOSITIVE RECREATIONAL DRUG USE DRUG USE?NO CAFFEINE CAFFEINE USE?YES 6-8 CUPS COFFEE DAILY, SODA ON OCCASIONS SEXUAL HX HAD SEX IN THE LAST 12 MONTHS (VAGINAL, ORAL, OR ANAL)?NO LMP:2010 HAVE YOU EVER HAD AN STD?NO HIV / HEP-C SCREENING HIV TEST OFFERED TO PATIENT:YES DATE OFFERED:03/13/2017 TEST ACCEPTED:NO HEP-C TEST OFFERED TO PATIENT:NO REASON:PATIENT DECLINED BUDDHISM [id number] SIKH LANGUAGE LANGUAGES SPOKEN:NEPALI EDUCATION LEVEL OF EDUCATION:NOT FINISHED COLLEGE LEARNING BARRIERS / SPECIAL NEEDS CHANGE FROM LAST VISIT?NO BARRIERS TO LEARNING?NO HEARING IMPAIRED?YES VISION IMPAIRED?YES :CORRECTIVE LENSES COGNITIVELY IMPAIRED?NO READINESS TO LEARN?YES LEARNING PREFERENCES?NO LEARNING CAPABILITIES PRESENT?YES EMOTIONAL BARRIERS?NO SPECIAL DEVICES?NO PROMOS EXECUTIVE PRODUCER NEEDED?NO DOMESTIC VIOLENCE DO YOU FEEL SAFE IN YOUR ENVIRONMENT?YES OCCUPATION: UNEMPLOYED. DIET: REGULAR. EXERCISE: NO REGULAR EXERCISE. MARITAL STATUS: SINGLE. OTHERS AT HOME: NONE. PAIN CLINIC PFS, CLERGY, PUBLIC HEALTH REFERRALS PFS REFERRAL NEEDED?NO CLERGY REFERRAL NEEDED?NO PUBLIC HEALTH REFERRAL NEEDED?NO HAS THE PATIENT BEEN EDUCATED REGARDING HIS/HER PLAN OF CARE?YES HAS THE PATIENT BEEN EDUCATED REGARDING PAIN, THE RISK FOR PAIN, THE IMPORTANCE OF EFFECTIVE PAIN MANAGEMENT, AND THE PAIN ASSESSMENT PROCESS?YES ADVANCE DIRECTIVE ADVANCE DIRECTIVE DISCUSSED WITH PATIENT:YES 07/27/2020 PT DOES NOT HAVE ANY ADVANCED DIREDCTIVES AND SHE DECLINES INFORMATION ON HCP AT THIS TIME. AD HOSPITALIZATION/MAJOR DIAGNOSTIC PROCEDURE SURGERY RELATED [facility] ([facility]) 05/2012 ADMITTED TO [facility] 12/2015 [facility]ED BLADDER 10/2016 [facility] 2 DAY HOSPITAL STAY DUE TO NICKED BOWEL 12/19/2017 PNEUMONIA 2015 & 2018 REHAB 2013 VITAL SIGNS WT 187 LBS, HT 67", BMI 29.29 INDEX, BP 124/75 MM HG, HR 71 /MIN, RR 18 /MIN, TEMP 96.9 F, OXYGEN SAT % 99%, SAFE IN ENV? (Y/N) Y, NA INITIALS SC 14:04, REVIEWED BY: YIN. EXAMINATION GENERAL EXAMINATION: THE PATIENT IS ALERT, ORIENTED TIMES THREE AND COOPERATIVE. HEART SHOWS REGULAR RHYTHM, NO MURMURS AND NO GALLOPS. LUNGS ARE CLEAR TO AUSCULTATION. ASSESSMENTS SACROILIITIS, NOT ELSEWHERE CLASSIFIED - M46.1 (PRIMARY) SACROILIAC JOINT DYSFUNCTION - M53.3 TREATMENT SACROILIITIS, NOT ELSEWHERE CLASSIFIED [facility] FLUORO GUIDANCE (PAIN)[id number] MEDICATION: BENADRYL TAB 25MG ORALLY (DIPHENHYDRAMINE)GAYLE GUNTER 07/27/2020 2:35:18 PM > VERIFIED. LOT#[id number] EXP: 11/2022. WANDER RUBIN 07/27/2020 2:38:54 PM > ADMINISTERED MEDICATION: ZOFRAN ODT TAB 4MG (ONDANSETRON)GAYLE GUNTER 07/27/2020 2:34:44 PM > VERIFIED. LOT# [id number] EXP:05/2023. WANDER RUBIN 07/27/2020 2:41:26 PM > ADMINISTERED MEDICATION: VALIUM TAB 10MG ORALLY (DIAZEPAM)GAYLE GUNTER 07/27/2020 2:34:02 PM > VERIFIED. LOT# [id number] EXP: 01/24. WANDER RUBIN 07/27/2020 2:39:20 PM > ADMINISTERED MEDICATION: OXYCODONE HCL TAB 10MG ORALLYGLADISGAYLE ALVARADO 07/27/2020 2:35:51 PM > VERIFIED. LOT# [id number] EXP: 11/2021. WANDER RUBIN 07/27/2020 2:39:56 PM > ADMINISTERED OTHERS NOTES: PAT COMPLETED. PROCEDURES PAIN NURSING RECORD PRE-PROCEDURE IV SITE N/A, PRE-PROCEDURE ORAL MEDICATIONS SEE MEDICATION ORDERS PROCEDURE IN ROOM 1455, PHYSICIAN IN ROOM 1511, START 1516, FINISH 1522, PHYSICIAN OUT OF ROOM 1523, OUT OF ROOM 1530, STEROID KENALOG, O2 RA, ECG NORMAL SINUS SINUS NAVYA ALSO NOTED, PATIENT SHIELDED YES, SAFETY STRAP YES, PREP CHLOROPREP BY Albert GUNTER RN, IV INFUSED N/A, DRESSING TEGADERM BY DR. ZEPEDA LOC: SCOTTIE,WANDER 07/27/2020 2:48:10 PM > 1. ALERT, ORIENTED RESP: SCOTTIE,WANDER 07/27/2020 2:48:55 PM > 1. REGULAR, NO DYSPNEA COLOR: SCOTTIE,WANDER 07/27/2020 2:49:01 PM > 1. PINK SKIN: SCOTTIE,WANDER 07/27/2020 2:49:05 PM > 1. WARM, DRY POSITION: SCOTTIE,WANDER 07/27/2020 2:57:56 PM > PRONE VITALS: SCOTTIE,WANDER 07/27/2020 2:57:02 PM > 157/82,60,18,100% SCOTTIE,WANDER 07/27/2020 3:01:00 PM >159/78,59,16,99% SCOTTIE,WANDER 07/27/2020 3:15:30 PM >145/72, 60,16,99% SCOTTIE,WANDER 07/27/2020 3:28:51 PM > 152/70,58,16,98% NOTES SCOTTIE,WANDER 07/27/2020 3:30:34 PM > RETURNED TO PRE-PROCEDURE ROOM VIA STRETCHER. ASSISTED TO STANDING POSITION BY ONE. GAIT STEADY, PT DENIES WEAKNESS IN LEGS AFTER THE PROCEDURE. DISCHARGE: POST PAIN 5 BILATERAL LOW BACK, DRESSING SITE DRY AND INTACT, IV N/A, GAIT STEADY, TEACHING COMPLETED, PATIENT ACKNOWLEDGES UNDERSTANDING YES, PATIENT DISCHARGED AT 1541 : SCOTTIE,WANDER 07/27/2020 5:25:11 PM > I CONTACTED PT, PER DR. ZEPEDA TO BE SURE SHE GOT HOME OKAY DUE TO TAKING A CAB HOME. SHE STATED SHE WAS HOME SAFELY AND DOING WELL. PN SI PRE PROCEDURE DIAGNOSIS SACROILIITIS, SACROILIAC JOINT DYSFUNCTION POST PROCEDURE DIAGNOSIS SACROILIITIS, SACROILIAC JOINT DYSFUNCTION PROCEDURE BILATERAL SACROILIAC JOINT BLOCK SURGEON DR. HARRISON ZEPEDA HOUSEHOLD REFRIGERATOR MECHANIC NONE ANESTHESIA LOCAL PRE PROCEDURE NOTE THE PATIENT WITH HISTORY OF CHRONIC LOW BACK PAIN. I EVALUATED THE PATIENT AND REVIEWED THE CHART. I WENT OVER THE RISKS, ALTERNATIVES, AND BENEFITS ASSOCIATED WITH THIS PROCEDURE. I DISCUSSED THAT THE USE OF STEROIDS MAY CONTRIBUTE TO IMMUNOSUPPRESSION OF THE PATIENT'S BODY AGAINST INFECTIONS SUCH COVID-19. THE PATIENT IS AWARE OF THE POTENTIAL COMPLICATIONS ASSOCIATED WITH THIS VIRUS, INCLUDING, BUT NOT LIMITED TO, . THE PATIENT WOULD LIKE TO PROCEED AND GAVE CONSENT TO PERFORM THE PROCEDURE. THE PATIENT DENIES UNEXPLAINABLE WEIGHT LOSS, FEVER, CHILLS, OR NEW CHANGES IN URINARY OR BOWEL CONTROL. THE PATIENT IS COVID-19 NEGATIVE DESCRIPTION OF PROCEDURE THE PATIENT WAS BROUGHT TO THE PROCEDURE ROOM AND PLACED IN THE PRONE POSITION. THE LUMBOSACRAL AREA WAS CLEANED WITH CHLORAPREP SOLUTION AND DRAPED ASEPTICALLY. THE PROCEDURE WAS DONE UNDER STERILE CONDITIONS. A TIMEOUT WAS PERFORMED WHERE LATERALITY AND THE SITE OF THE PROCEDURE WERE CHECKED AND CONFIRMED WITH EVERYONE IN THE ROOM. UNDER FLUOROSCOPIC GUIDANCE, THE TARGET POINT WAS SELECTED AT THE LOWER BORDER OF THE RIGHT AND LEFT SACROILIAC JOINT. TARGET POINT WAS SELECTED AFTER MEDIAL ROTATION AND TILT OF THE MAGNIFIER OR THE C-ARM. I CONFIRMED AGAIN WITH EVERYONE IN THE ROOM THE LATERALITY OF THE TARGET AT 1516 ON THE LEFT AND 1520 ON THE RIGHT. LIDOCAINE 0.5% WAS USED TO NUMB THE SKIN AND THE SUBCUTANEOUS TISSUE BELOW IT. SPINAL NEEDLES, 22-GAUGE, WERE ADVANCED UNDER FLUOROSCOPIC GUIDANCE AND FOLLOWING PATIENT FEEDBACK UNTIL THE TARGETS WERE TOUCHED. THE POSITION OF THE NEEDLES WAS VERIFIED WITH AP AND OBLIQUE VIEWS. AFTER PROPER POSITION OF THE NEEDLES WAS ACHIEVED, ISOVUE-M DYE 30%, 0.1 ML, WAS INJECTED SHOWING ADEQUATE SPREAD OF THE DYE. KENALOG 40 MG WAS INJECTED AT EACH SITE. THEN, A SOLUTION OF 3.0 ML OF BUPIVACAINE 0.125% WAS USED TO FLUSH EACH NEEDLE. THE MEDICATIONS WERE VERIFIED WITH THE NURSE. THERE WAS NO EVIDENCE OF BLOOD, PARESTHESIA OR CEREBROSPINAL FLUID DURING THE PROCEDURE. THE PATIENT WAS SENT TO THE RECOVERY ROOM. THE PATIENT WAS MOVING THE EXTREMITIES AND DOING WELL. THERE WERE NO COMPLICATIONS DURING THE PROCEDURE. ESTIMATED BLOOD LOSS WAS LESS THAN 5 ML. FLUOROSCOPIC TIME WAS 43 SECONDS POST PROCEDURE NOTE THE PATIENT IS GETTING A NEW MRI NEXT WEEK. THE PROCEDURE DONE WAS DISCUSSED WITH THE PATIENT. THE PATIENT WILL BE SEEN IN A FOLLOW UP IN THE NEXT FEW WEEKS. I AM LOOKING FOR LONG LASTING PAIN RELIEF FOR THE PATIENT WITH THIS INTERVENTION. INSTRUCTIONS WERE GIVEN, QUESTIONS WERE ANSWERED, AND THE PATIENT EXPRESSED UNDERSTANDING AND AGREES WITH THE PLAN. I, SANJUANA SERNA, DOCUMENTED THE ABOVE INFORMATION ACTING A SCRIBE FOR DR. ZEPEDA. I HAVE REVIEWED THE ABOVE DOCUMENT, WRITTEN BY SANJUANA SERNA, RAW SCALES OPERATOR, AND I VERIFY THAT IT IS ACCURATE PROCEDURE CODES 28844 INJECT SACROILIAC JOINT, MODIFIERS: 50 DISPOSITION & COMMUNICATION FOLLOW UP FOLLOW UP WITH ETCHED CIRCUIT PROCESSOR (REASON: POST BILATERAL SIJ) ELECTRONICALLY SIGNED BY HARRISON ZEPEDA MD, MD ON 07/31/2020 AT 02:12 PM EDT DISCLAIMER : THIS IS A VISIT SUMMARY EXTRACTED FROM THE [employer] CHART. IT IS NOT A COPY OF THE [employer] PROGRESS NOTE. GELACIO
== END ==
LOC: M PAIN 14:00
PROVIDERS: ATTEND Anesthesiology
DX: M46.1 Sacroiliitis, not elsewhere classified (principal); M53.3 Sacrococcygeal disorders, not elsewhere classified; G47.33 Obstructive sleep apnea (adult) (pediatric); K21.9 Gastro-esophageal reflux disease without esophagitis; G43.909 Migraine, unspecified, not intractable, without status migrainosus; J45.909 Unspecified asthma, uncomplicated; I10 Essential (primary) hypertension; F17.210 Nicotine dependence, cigarettes, uncomplicated; Z86.14 Personal history of Methicillin resistant Staphylococcus aureus infection; Z98.84 Bariatric surgery status; Z86.59 Personal history of other mental and behavioral disorders; Z88.5 Allergy status to narcotic agent; Z88.8 Allergy status to other drugs, medicaments and biological substances; Z91.040 Latex allergy status; Z79.899 Other long term (current) drug therapy
CPT/HCPCS: 27096; J3301; Q0162; Q9967

== ENCOUNTER → 2020-08-17 | Outpatient (CLI) | payer OTHER ==
[~2020-08-17] MED LIST changes: -BUPIVACAINE HCL 0.25% 30ML VIAL As Ordered ONE; -ISOVUE-M 300 61% 15ML VIAL As Ordered ONE; -LIDOCAINE 1% SDV 30ML VIAL As Ordered ONE; -ONDANSETRON 4 MG ORAL DISINTEGRATING TAB As Ordered ONE; -TRIAMCINOLONE ACETONIDE SUSP 40 MG/ML VIAL (J3301) As Ordered ONE; -diazePAM 5 MG TAB As Ordered ONE; -diphenhydrAMINE 25MG CAP As Ordered ONE; -oxyCODONE 5MG TAB As Ordered ONE
--- NOTE | 2020-08-19 04:39 | ECWPNPC ---
PATIENT NAME: ADELA ALMONTE : 1980 GENDER: FEMALE VISIT DATE: 08/17/2020 DISCHARGE DATE: 08/17/20 1155 VISIT LOCKED DATE TIME: PHYSICIAN: RAVEN CORDON PHYSICIAN PAGER NO: ACTIVE RESOURCE: RAVEN CORDON REASON FOR APPOINTMENT 1. POST BILATERAL SIJ HISTORY OF PRESENT ILLNESS GENERAL: - 40-YEAR-OLD FEMALE IN FOR POST BILATERAL SIJ FOLLOW-UP. SHE FEELS THE PROCEDURE WAS SUCCESSFUL OVERALL RATING HER PAIN PREPROCEDURE AT AN 8 OUT OF 10 AND POSTPROCEDURE AT A 4-5 OUT OF 10. SHE FURTHER STATES THE PROCEDURE CONTINUES TO HELP HER TODAY. PATIENT HAD AN MRI OF HER LUMBAR SPINE PERFORMED RECENTLY WHICH WILL BE REVIEWED WITH PATIENT TODAY. FALL RISK SCREENING: SCREENING :TWO OR MORE FALLS WITH INJURY IN THE PAST YEAR STATES NO INJURIES THAT HAVE REQUIRED MEDICAL ATTENTION PAIN SCREENING: PATIENT HAS A COMPLAINT OF ACUTE OR CHRONIC PAIN :YES LOCATION OF PAIN:LEFT HIP, RIGHT HIP INTENSITY OF PAIN (SCALE OF 1 TO 10):4 WHAT DOES YOUR PAIN FEEL LIKE:INTERMITTENT, SHARP DURATION:CONTINOUS PAIN IS INCREASED BY:ACTIVITIES PAIN IS DECREASED BY:OTHERS HEAT, ICE NURSING NOTE: -. PAIN CENTER INTAKE QUESTIONS: DO YOU HAVE A HISTORY OF MRSA? :YES DO YOU TAKE A BLOOD THINNERS? :NO DO YOU HAVE ANY BLEEDING DISORDERS? :NO ANY NEW NUMBNESS OR WEAKNESS IN YOUR LEGS OR ARMS? :NO ANY PACEMAKER,DEFIBRILLATOR, OR DORSAL COLUMN STIMULATOR? :NO DO YOU HAVE ANY RASHES OR OPEN SORES? :NO ARE YOU ALLERGIC TO IV DYE? :NO ARE YOU DIABETIC? :NO ANY NEW PROBLEMS WITH YOUR MEDICATIONS? :NO HAVE YOU RECEIVED A VACCINE IN THE PAST 30 DAYS? :NO DO YOU PLAN TO RECEIVE A VACCINE IN THE NEXT 21 DAYS? :YES IF SO WHAT VACCINE AND WHEN? PLANS ON RECEIVING THE FLU SHOT NEXT WEEK DO YOU NEED ANY PRESCRIPTION? :NO DO YOU TAKE ANY IMMUNOSUPPRESSIVE MEDICATIONS? :NO ANY HISTORY OF SEIZURES? :NO ANY HISTORY OF CARDIAC ISSUES OR EVENTS? :NO DO YOU HAVE SLEEP APNEA? :YES DO YOU WEAR A CPAP?YES ANY RECENT HEAD INJURY? :NO DO YOU HAVE ANY NEW INFECTIONS? :NO IS THERE A CHANCE YOU COULD BE ? :NO ARE YOU BREAST FEEDING? :NO DO YOU HAVE ANY OTHER QUESTIONS OR CONCERNS? : CAN YOU REVIEW HER LOW BACK MRI WITH HER TODAY? STATES SHE HAS AN APPOINTMENT WITH YOU ON FRIDAY TO REVIEW THE MRI CURRENT MEDICATIONS TAKING VYVANSE 70 MG CAPSULE (SCHEDULE II DRUG) TAKE ONE CAPSULE BY MOUTH EVERY MORNING - MAXIMUM DAILY DOSE ONE CAPSULE ORAL TAKING BUSPIRONE HCL 30 MG TABLET TAKE ONE TABLET BY MOUTH @6AM AND TAKE ONE TABLET BY MOUTH @8PM ORAL TAKING PRAZOSIN HCL 1 MG CAPSULE TAKE ONE CAPSULE BY MOUTH @8PM ORAL TAKING IMITREX 4 MG/0.5 ML 1 INJECTION SUBCUTANEOUS NEEDED TAKING FAMOTIDINE 40 MG TABLET TAKE ONE TABLET BY MOUTH @8PM ORAL TAKING AIMOVIG 70 MG/ML SOLUTION AUTO-INJECTOR USE ONCE PER MONTH SUBCUTANEOUS TAKING ESTRADIOL 0.025 MG/24HR PATCH WEEKLY APPLY ONE PATCH TOPICALLY ONCE PER WEEK TRANSDERMAL TAKING PROMETHAZINE HCL 25 MG TABLET TAKE ONE TABLET BY MOUTH @6AM AND TAKE ONE TABLET BY MOUTH @NOON AND TAKE ONE TABLET BY MOUTH @6PM AND TAKE ONE TABLET BY MOUTH @8PM ORAL TAKING MOVANTIK 25 MG TABLET TAKE ONE TABLET BY MOUTH @6AM ORAL TAKING FIBER LAXATIVE 0.52 GM CAPSULE TAKE TWO CAPSULES BY MOUTH @6AM AND TAKE TWO CAPSULES @8PM ORAL TAKING CUVITRU 4 GM/20ML SOLUTION DIRECTED SUBCUTANEOUS TAKING LIDOCAINE HCL 3 % CREAM APPLY TO ABDOMEN 30 MINUTES PRIOR TO INFUSION EXTERNAL TAKING VRAYLAR 4.5 MG CAPSULE TAKE ONE CAPSULE BY MOUTH AT BEDTIME ORALLY ONCE A DAY TAKING BOTOX 100 UNIT SOLUTION RECONSTITUTED DIRECTED INTRAMUSCULAR TAKING ALBUTEROL SULFATE (2.5 MG/3ML) 0.083% NEBULIZATION SOLUTION 3 ML NEEDED INHALATION EVERY 8 HRS TAKING VENTOLIN HFA 90 MCG/ACT AEROSOL SOLUTION 1 PUFF NEEDED INHALATION EVERY 4 HRS TAKING TOPIRAMATE 50 MG TABLET TAKE ONE TABLET BY MOUTH TWICE DAILY BOTTLE ORAL TWICE DAILY TAKING AZELASTINE HCL 137 MCG/SPRAY SOLUTION 1 PUFF IN EACH NOSTRIL NASALLY TWICE A DAY TAKING FLUTICASONE PROPIONATE 50 MCG/ACT SUSPENSION 1 SPRAY IN EACH NOSTRIL NASALLY ONCE A DAY TAKING ACETAMINOPHEN 500 MG CAPSULE 1 CAPSULES NEEDED ORALLY EVERY 6 HRS PRN TAKING NIFEDIPINE 20 MG CAPSULE TAKE ONE CAPSULE BY MOUTH @6AM ORAL DAILY TAKING PANTOPRAZOLE SODIUM 40 MG TABLET DELAYED RELEASE TAKE ONE TABLET BY MOUTH @6AM ORAL ONCE A DAY TAKING PREGABALIN 200 MG CAPSULE 1 CAPSULE ORAL THREE TIMES DAILY TAKING FUROSEMIDE 20 MG TABLET TAKE ONE TABLET BY MOUTH @6AM TAKING CETIRIZINE HCL 10 MG TABLET TAKE ONE TABLET BY MOUTH @6AM ( NEEDED) ORAL ONCE DAILY NOT-TAKING DICYCLOMINE HCL 20 MG TABLET TAKE ONE TABLET BY MOUTH @6AM AND TAKE ONE TABLET @NOON AND TAKE ONE TABLET @8PM ( NEEDED FOR PAIN) ORAL NOT-TAKING OSTEO BI-FLEX REGULAR STRENGTH 250-200 MG TABLET 1 TABLET WITH A MEAL ORALLY ONCE A DAY NOT-TAKING AMMONIUM LACTATE 10 % LOTION 1 APPLICATION TO AFFECTED AREA EXTERNALLY TWICE A DAY NOT-TAKING NICORETTE 4 MG LOZENGE 1 LOZENGE NEEDED MOUTH/THROAT 20 TIME(S) A DAY NOT-TAKING DOXYCYCLINE HYCLATE 100 MG CAPSULE 1 CAPSULE ORALLY TWICE A DAY MEDICATION LIST REVIEWED AND RECONCILED WITH THE PATIENT PAST MEDICAL HISTORY COMMON VARIABLE IMMUNO DEFICIENCY DISEASE HISTORY OF KIDNEY STONES CHRONIC NECK/MID/LOW BACK PAIN - PAIN CENTER CHRONIC OPIOID USE, OPIOID-INDUCED CONSTIPATION PEPTIC ULCER DISEASE, GERD, S/P GASTRIC BYPASS - DR. MILLER BIPOLAR, ANXIETY, DEPRESSION, ADHD - DR. OTERO MIGRAINE HEADACHES - CAREY NEURO, GETS BOTOX INJECTIONS SURGICAL MENOPAUSE S/P ELIA & BSO (2009) FOR ENDOMETRIOSIS; PRESCRIBED ESTRADIOL BY CHRONIC RHINITIS/SINUSITIS, ALLERGIES RAYNAUD'S SYNDROME ASTHMA, JOSEPH ON BIPAP - DR. SAI TIDWELL HISTORY OF IRON-DEFICIENCY ANEMIA TOBACCO USE; SMOKES 15 CIG/DAY HISTORY OF ALCOHOL USE DISORDER; DRINKS 2 DAYS A WEEK HISTORY OF DRUG ABUSE IN REMISSION; USED IV METH AND IV ECSTASY IN 08/2019 HEART MURMUR - ECHO 10/2017 BORDERLINE LVH, MILD LAE, SUBTLE AV SCLEROSIS, AORTIC SCLEROSIS, MILD AR, MILD MR HTN - CANNY ALLERGIES MORPHINE SULFATE: TACHYCARDIA DILAUDID: TACHYCARDIA REGLAN: HIVES LAMICTAL: WELTS LATEX GLOVES SURGICAL HISTORY BACK SURGERY 1997 LAPAROTOMY X 4 FOR ENDOMETRIOSIS AT [facility], DR. CRISTOBAL 200S CHOLECYSTECTOMY 07/2008 LUMBAR LAMINECTOMY, [place] 02/2009 HYSTERECTOMY, APPENDECTOMY - FOR ENDOMETRIOSIS 12/2009 GASTRIC BYPASS (DR. CARTAGENA, [facility]) 01/2012 LAPAROSCOPY AND REMOVAL OF ADHESIONS (DR. BARRERA) 12/2012 CHEST TUBE ENDOSCOPY/COLONOSCOPY BLADDER REPAIR 10/2016 LAPROSCOPC SURGERY FOR ENDOMETRIOSIS / LYSIS OF ADHESIONS AND SCAR TISSUE (BOWEL NICKED IN OR). 12/19/17 EGD - ESOPHAGEAL PLAQUE - BIOPSY RESULTS NOT SENT TO US (DR. MILLER) 05/2018 REMOVAL CYSTS IN BILATERAL EARS REMOVAL OF NEEDLE FROM RIGHT FOOT FAMILY HISTORY FATHER: ALIVE, HAD SKIN CANCER, DIAGNOSED WITH UNSPECIFIED CEREBRAL ARTERY OCCLUSION WITH CEREBRAL INFARCTION, OTHER MALIGNANT NEOPLASM OF UNSPECIFIED SITE MOTHER: ALIVE, HYPERTENSION, DIABETES, UNSPECIFIED HEART DISEASE SIBLINGS: ALIVE, SISTER WITH JUAN'S 1 SISTER(S) . DENIES FAMILY HX OF PANCREATIC CANCER, GRANDMOTHER AND FATHER HAD MELANOMA. SOCIAL HISTORY GENERAL: TOBACCO USE ARE YOU A:CURRENT SMOKER ARE YOU INTERESTED IN QUITTING?READY TO QUIT WAITING FOR PRESCRIPTION FOR CHANTIX. COUNSELED THE PATIENT ON TOBACCO USE, CESSATION [id number]/12/2020 HOW MANY CIGARETTES A DAY DO YOU SMOKE?11-20 HOW SOON AFTER YOU WAKE UP DO YOU SMOKE YOUR FIRST CIGARETTE?AFTER 60 MIN HOW OFTEN DO YOU SMOKE CIGARETTES?EVERY DAY PATIENT COUNSELED ON THE DANGERS OF TOBACCO USE AND URGED TO QUIT:08/17/2020 SMOKING CESSATION INFORMATION GIVEN04/03/2020 LATEX QUESTIONNAIRE LATEX ALLERGY : HAVE YOU EVER DEVELOPED ANY TYPE OF REACTION AFTER HANDLING LATEX PRODUCTS SUCH RUBBER GLOVES, CONDOMS, DIAPHRAGMS, BALLOONS, SOCKS, OR UNDERWEAR?YES - PLEASE INDICATE :RUBBER GLOVES, CONDOMS, UNDERWEAR, OTHER (DOCUMENT IN NOTES) BRAS LATEX ALLERGY : HAVE YOU EVER DEVELOPED ANY TYPE OF REACTION DURING OR AFTER DENTAL APPOINTMENT, VAGINAL/RECTAL EXAMINATION, SURGICAL PROCEDURE, OR ANY OTHER EXPOSURE?YES - PLEASE INDICATE :VAGINAL EXAM LATEX RISK : HAVE YOU EVER HAD ANY DIFFICULTY BREATHING OR HIVES AFTER EATING OR HANDLING ANY FRUITS, OR VEGETABLES; SUCH KIWI, BANANAS, STONE FRUITS, OR CHESTNUTSNO LATEX RISK : DO YOU HAVE A PREVIOUS PERSONAL HISTORY OF MORE THAN NINE SURGERIES, SPINA BIFIDA, OR REPEATED CATHERIZATIONS? YES - PLEASE INDICATE : > 9 SURGERIES LATEX RISK : ARE YOU FREQUENTLY EXPOSED TO LATEX PRODUCTS IN YOUR OCCUPATION?NO DATE ASKED : 08/17/2020 LUNG CANCER SCREENING SMOKING STATUS:CURRENT SMOKER BMI CARE GOAL FOLLOW-UP ABOVE NORMAL BMI FOLLOW-UPDIETARY MANAGEMENT EDUCATION, GUIDANCE, AND COUNSELING, DIETARY NEEDS EDUCATION, EXERCISE PROMOTION: STRENGTH TRAINING ALCOHOL SCREENING DID YOU HAVE A DRINK CONTAINING ALCOHOL IN THE PAST YEAR?YES HOW OFTEN DID YOU HAVE SIX OR MORE DRINKS ON ONE OCCASION IN THE PAST YEAR?NEVER (0 POINTS) HOW MANY DRINKS DID YOU HAVE ON A TYPICAL DAY WHEN YOU WERE DRINKING IN THE PAST YEAR?1 OR 2 (0 POINTS) HOW OFTEN DID YOU HAVE A DRINK CONTAINING ALCOHOL IN THE PAST YEAR?TWO TO THREE TIMES PER WEEK (3 POINTS) POINTS3 INTERPRETATIONPOSITIVE RECREATIONAL DRUG USE DRUG USE?NO CAFFEINE CAFFEINE USE?YES 6-8 CUPS COFFEE DAILY, SODA ON OCCASIONS SEXUAL HX HAD SEX IN THE LAST 12 MONTHS (VAGINAL, ORAL, OR ANAL)?NO LMP:2009 HAVE YOU EVER HAD AN STD?NO HIV / HEP-C SCREENING HIV TEST OFFERED TO PATIENT:YES DATE OFFERED:03/13/2017 TEST ACCEPTED:NO HEP-C TEST OFFERED TO PATIENT:NO REASON:PATIENT DECLINED MOSQUE [id number] CONGREGATIONAL LANGUAGE LANGUAGES SPOKEN:GEORGIAN EDUCATION LEVEL OF EDUCATION:NOT FINISHED COLLEGE LEARNING BARRIERS / SPECIAL NEEDS CHANGE FROM LAST VISIT?NO BARRIERS TO LEARNING?NO HEARING IMPAIRED?YES VISION IMPAIRED?YES COGNITIVELY IMPAIRED?NO :CORRECTIVE LENSES READINESS TO LEARN?YES LEARNING PREFERENCES?NO LEARNING CAPABILITIES PRESENT?YES EMOTIONAL BARRIERS?NO SPECIAL DEVICES?NO OIL AND GAS SUPERINTENDENT NEEDED?NO DOMESTIC VIOLENCE DO YOU FEEL SAFE IN YOUR ENVIRONMENT?YES OCCUPATION: UNEMPLOYED. DIET: REGULAR. EXERCISE: NO REGULAR EXERCISE. MARITAL STATUS: SINGLE. OTHERS AT HOME: NONE. PAIN CLINIC PFS, CLERGY, PUBLIC HEALTH REFERRALS PFS REFERRAL NEEDED?NO CLERGY REFERRAL NEEDED?NO PUBLIC HEALTH REFERRAL NEEDED?NO HAS THE PATIENT BEEN EDUCATED REGARDING HIS/HER PLAN OF CARE?YES HAS THE PATIENT BEEN EDUCATED REGARDING PAIN, THE RISK FOR PAIN, THE IMPORTANCE OF EFFECTIVE PAIN MANAGEMENT, AND THE PAIN ASSESSMENT PROCESS?YES ADVANCE DIRECTIVE ADVANCE DIRECTIVE DISCUSSED WITH PATIENT:YES 07/27/2020 PT DOES NOT HAVE ANY ADVANCED DIREDCTIVES AND SHE DECLINES INFORMATION ON HCP AT THIS TIME. AD HOSPITALIZATION/MAJOR DIAGNOSTIC PROCEDURE SURGERY RELATED [facility] ([facility]) 05/2012 ADMITTED TO [facility] 12/2015 [facility] - RUPTURED BLADDER 10/2016 [facility] 2 DAY HOSPITAL STAY DUE TO NICKED BOWEL 12/19/2017 PNEUMONIA 2015 & 2018 REHAB 2014 REVIEW OF SYSTEMS CONSTITUTIONAL: ANY RECENT FEVER NO . CHILLS NO . WEIGHT CHANGE OF UNKNOWN REASONS NO . GASTROENTEROLOGY: NEW UNEXPLAINABLE CHANGES IN BOWEL CONTROL NO . CONSTIPATION NO . GENITOURINARY: ANY NEW CHANGE IN BLADDER CONTROL? NO . NEUROLOGY: NEW ONSET DIZZINESS OR NEUROLOGICAL CHANGES NOT MENTIONED NO . NEW NUMBNESS OR PAIN PATTERNS NOT MENTIONED AND PERTINENT TO TODAY'S VISIT NO . CARDIOLOGY: NEW CHEST PRESSURE NO . NEW CHEST PAIN NO . RESPIRATORY: UNEXPLAINABLE COUGH NO . NEW SHORTNESS OF BREATH NO . VITAL SIGNS WT 180.4 LBS, HT 67", BMI 28.25 INDEX, BP 111/71 MM HG, HR 93 /MIN, RR 18 /MIN, TEMP 97.3 F, OXYGEN SAT % 99%, SAFE IN ENV? (Y/N) YES, NA INITIALS OH 11:23, REVIEWED BY: JESSA PARIS RN. EXAMINATION GENERAL EXAMINATION: GENERALNO ACUTE DISTRESS, WELL NOURISHED AND HYDRATED. PSYCHAPPROPRIATE MOOD AND AFFECT . LUNGS:CLEAR TO AUSCULTATION BILATERALLY, NO WHEEZES, RHONCHI, RALES. HEART:NO MURMURS, REGULAR RATE AND RHYTHM. ASSESSMENTS OTHER CHRONIC PAIN - G89.29 (PRIMARY) SACROILIITIS, NOT ELSEWHERE CLASSIFIED - M46.1 TREATMENT OTHER CHRONIC PAIN PAIN PROCEDURE LOGDATE OF [id number]/22/2020PROCEDURE:BILATERAL SACROILIAC JOINT INJECTIONSAMOUNT OF PRE SEDATEBENADRYL 25 MG PO, ZOFRAN 4MG ODT, VALIUM 10 MG PO, OXYCODONE 10 MG PORESULT:PRE 05/15 POST -02/12 NOTES: 40-YEAR-OLD FEMALE IN FOR POST SIJ FOLLOW-UP. REVIEWED MRI WITH PATIENT AND THERE IS POST SURGICAL CHANGES NOTED RECOMMENDED REFERRAL TO [facility] FOR FURTHER EVALUATION. PATIENT HAS EXPRESSED UNDERSTANDING OF AND WAS IN AGREEMENT WITH TREATMENT PLAN. GIVEN TIME TO ASK QUESTIONS AND EXPRESS CONCERNS. , ISTOP REGISTRY REVIEWED AND DEMONSTRATES COMPLLIANCE. (REF # [id number] ) BRINGS IN MEDICATIONS WHICH IS APPROPRIATE FOR WHAT WAS DISPENSED. RECENT URINE TOXICOLOGY REVIEWED. NO UNAUTHORIZED MEDICATIONS. NO ILLICIT SUBSTANCES AND PRESCRIBED MEDICATIONS WERE PRESENT. [facility] REASON:RECENT MRI SHOWS POST SURGICAL CHANGES. WOULD LIKE CONSULT FOR FURTHER EVALUATION. OTHERS [facility] REASON:RECENT MRI SHOWS POST SURGICAL CHANGES. WOULD LIKE CONSULT FOR FURTHER EVALUATION. PROCEDURE CODES [id number] ESTABILISHED PATIENT [facility] CHARGE DISPOSITION & COMMUNICATION FOLLOW UP 2 MONTHS (REASON: BACK PAIN) ELECTRONICALLY SIGNED BY JAKUB VILLEDA ON 08/18/2020 AT 08:52 AM EST DISCLAIMER : THIS IS A VISIT SUMMARY EXTRACTED FROM THE [employer] CHART. IT IS NOT A COPY OF THE [employer] PROGRESS NOTE. GELACIO
== END ==
LOC: M PAIN 11:15
PROVIDERS: ATTEND Family Medicine
DX: G89.29 Other chronic pain (principal); M46.1 Sacroiliitis, not elsewhere classified; D83.9 Common variable immunodeficiency, unspecified; K21.9 Gastro-esophageal reflux disease without esophagitis; F41.9 Anxiety disorder, unspecified; F31.9 Bipolar disorder, unspecified; G43.909 Migraine, unspecified, not intractable, without status migrainosus; I73.00 Raynaud's syndrome without gangrene; G47.33 Obstructive sleep apnea (adult) (pediatric); J45.909 Unspecified asthma, uncomplicated; F17.210 Nicotine dependence, cigarettes, uncomplicated; Z79.899 Other long term (current) drug therapy; Z88.5 Allergy status to narcotic agent; Z88.8 Allergy status to other drugs, medicaments and biological substances; Z91.040 Latex allergy status

== ENCOUNTER → 2020-08-21 | Outpatient (CLI) | payer SELFPAY | LOC: M LABSMTC 11:52 | PROVIDERS: ATTEND Pediatrics | DX: Z20.828 Contact with and (suspected) exposure to other viral communicable diseases (principal) ==

== ENCOUNTER 2020-09-08 10:29 | Emergency (ER) | payer OTHER, SELFPAY ==
[~2020-09-08] VITALS: Ht 170.2 cm; Wt 79.9 kg
[2020-09-08 11:34] LABS: BASO % 0.5 % (0.0-1.0); EOS % 0.5 % (0.0-3.0); HEMATOCRIT 40.6 % (36.0-47.0); HEMOGLOBIN 12.5 g/dl (12.0-15.5); LYMPH # 1.2 10^3/uL (1.5-5.0); LYMPH % 28.8 % (24.0-44.0); MEAN CORPUSCULAR HEMOGLOBIN 27.4 pg (27.0-33.0); MEAN CORPUSCULAR HGB CONC 30.8 g/dl (32.0-36.5); MEAN CORPUSCULAR VOLUME 88.8 fl (80.0-96.0); MONO # 0.2 10^3/uL (0.0-0.8); MONO % 5.6 % (0.0-5.0); NEUTROPHILS # 2.8 10^3/uL (1.5-8.5); NEUTROPHILS % 64.4 % (36.0-66.0); PLATELET COUNT, AUTOMATED 152 10^3/uL (150-450); RED BLOOD COUNT 4.57 10^6/uL (4.00-5.40); WHITE BLOOD COUNT 4.3 10^3/uL (4.0-10.0)
[2020-09-08 11:56] LABS: HCG, SERUM QUALITATIVE NEGATIVE (NEGATIVE)
[2020-09-08 12:00] LABS: ALBUMIN 3.9 GM/DL (3.2-5.2); ALT/SGPT 29 U/L (12-78); BILIRUBIN,DIRECT < 0.1 MG/DL (0.0-0.2); BILIRUBIN,TOTAL 0.3 MG/DL (0.2-1.0); BLOOD UREA NITROGEN 8 MG/DL (7-18); CALCIUM LEVEL 9.4 MG/DL (8.5-10.1); CARBON DIOXIDE LEVEL 27 MEQ/L (21-32); CHLORIDE LEVEL 105 MEQ/L (98-107); GLOMERULAR FILTRATION RATE > 60.0 (>58); GLUCOSE, FASTING 87 MG/DL (70-100); LIPASE 223 U/L (73-393); POTASSIUM SERUM 3.4 MEQ/L (3.5-5.1); SODIUM LEVEL 139 MEQ/L (136-145); TOTAL PROTEIN 7.5 GM/DL (6.4-8.2)
[2020-09-08] MEDS ORDERED: KETOROLAC 30 MG/ML 1ML VIAL IV ONE (12:15)
[2020-09-08] MEDS ORDERED: NS 1,000 ML IV ONE (12:15)
[2020-09-08] MEDS ORDERED: ONDANSETRON 4MG/2ML VIAL IV ONE (12:15)
--- NOTE | 2020-09-08 12:29 | REP ---
INDICATION: renal calc r. COMPARISON: 12/31/2019 TECHNIQUE: Noncontrast enhanced stone protocol FINDINGS: The lung bases are unchanged. There is a 3 mm size calcification in the inferior pole the right kidney. This is essentially unchanged. There is no hydronephrosis or hydroureter on either side. There are no ureterolith. Are no urinary bladder calcifications. There is no significant change in appearance of the spleen, pancreas, or adrenal glands. There is no change in appearance of the liver. Note is again made of cholecystectomy. There is no free fluid or free air. There is no evidence of a mass or adenopathy. Limited evaluation of the bowel loops and the mesenteries show no gross abnormalities or significant changes from the prior exam. There is no change in the osseous structures. Note is again made of an adipose containing ventral hernia status quo. IMPRESSION: No significant change from the prior exam as described above. <Electronically signed by Didier Lomas > 09/08/20 1451
[2020-09-08] MEDS ORDERED: NALO25TA PO (12:47)
[2020-09-08] MEDS ORDERED: FURO20TA2 PO (12:47)
[2020-09-08] MEDS ORDERED: PRAZ1CAP PO (12:47)
[2020-09-08] MEDS ORDERED: PROT1TAB2 PO (12:47)
[2020-09-08] MEDS ORDERED: DICY20TA11 PO (12:47)
[2020-09-08] MEDS ORDERED: LIDO3CRE14 TOP (12:47)
[2020-09-08] MEDS ORDERED: ALBU83IN NEB (12:47)
[2020-09-08] MEDS ORDERED: FLUTISP (12:47)
[2020-09-08] MEDS ORDERED: CETI-24 PO (12:47)
[2020-09-08] MEDS ORDERED: FAMO40TA3 PO (12:47)
[2020-09-08] MEDS ORDERED: AZEL0.055 NARES (12:47)
[2020-09-08] MEDS ORDERED: TOPI50TA9 PO (12:47)
[2020-09-08] MEDS ORDERED: LYRI200C PO (12:47)
[2020-09-08] MEDS ORDERED: [UNRECOGNIZED DRUG - CODE] SC (12:47)
[2020-09-08] MEDS ORDERED: VRAY4.5C PO (12:47)
[2020-09-08] MEDS ORDERED: BOTO10VL IM (12:47)
[2020-09-08] MEDS ORDERED: ACAM0.05 PO (12:47)
[2020-09-08] MEDS ORDERED: ESTR25TD TOP (12:47)
[2020-09-08] MEDS ORDERED: AIMO70IN SQ (12:47)
[2020-09-08] MEDS ORDERED: ZOFR4TAB16 PO (13:20)
[2020-09-08 13:59] VITALS: BP 143/83
[2020-09-08] MEDS ORDERED: ACETAMINOPHEN 325 MG TAB PO ONE (14:00)
== END 2020-09-08 14:07 | disposition home or self-care (01) ==
LOC: M ED 10:29
DX: R10.9 Unspecified abdominal pain (principal); R11.0 Nausea; Z98.84 Bariatric surgery status; F17.200 Nicotine dependence, unspecified, uncomplicated; Z79.899 Other long term (current) drug therapy; Z88.6 Allergy status to analgesic agent; Z88.8 Allergy status to other drugs, medicaments and biological substances; Z88.5 Allergy status to narcotic agent
CPT/HCPCS: 36415; 74176; 80048; 80076; 81001; 83690; 84703; 85025; 96361; 96374; 99284; J2405

== ENCOUNTER → 2020-09-26 | Outpatient (REF) | payer OTHER ==
[~2020-09-26] MED LIST changes: +ACAM0.05 PO; +AIMO70IN SQ; +ALBU83IN NEB; +AZEL0.055 NARES; +CETI-24 PO; +DICY20TA11 PO; +ESTR25TD TOP; +FAMO40TA3 PO; +FLUTISP; +FURO20TA2 PO; +LIDO3CRE14 TOP; +LYRI200C PO; +NALO25TA PO; +PRAZ1CAP PO; +TOPI50TA9 PO; +VRAY4.5C PO
[2020-09-26 15:54] LABS: AMORPHOUS SEDIMENT SMALL (NEGATIVE); APPEARANCE, URINE CLOUDY (CLEAR); BACTERIA, URINE AUTO NEGATIVE (NEGATIVE); BILIRUBIN, URINE AUTO NEGATIVE (NEGATIVE); BLOOD, URINE BLOOD NEGATIVE (NEGATIVE); CALCIUM OXALATE CRYSTALS SMALL; COLOR, URINE YELLOW (YELLOW); GLUCOSE, URINE (UA) AUTO NEGATIVE (NEGATIVE); HEMATOCRIT 38.2 % (36.0-47.0); HEMATOCRIT 38.6 % (36.0-47.0); KETONE, URINE AUTO NEGATIVE (NEGATIVE); LEUKOCYTE ESTERASE, URINE AUTO NEGATIVE (NEGATIVE); MEAN CORPUSCULAR HEMOGLOBIN 27.4 pg (27.0-33.0); MEAN CORPUSCULAR HGB CONC 31.1 g/dl (32.0-36.5); MEAN CORPUSCULAR VOLUME 88.1 fl (80.0-96.0); NITRITE, URINE AUTO NEGATIVE (NEGATIVE); PLATELET COUNT, AUTOMATED 164 10^3/uL (150-450); PROTEIN, URINE AUTO NEGATIVE (NEGATIVE); RBC, URINE AUTO 1 /HPF (0-3); RED BLOOD COUNT 4.38 10^6/uL (4.00-5.40); SPECIFIC GRAVITY URINE AUTO 1.011 (1.002-1.035); SQUAMOUS EPITHELIAL CELL UR AU 0 /HPF (0-6); UROBILINOGEN, URINE AUTO 0.2 mg/dL (0.0-2.0); WBC, URINE AUTO 2 /HPF (0-3); WHITE BLOOD COUNT 6.4 10^3/uL (4.0-10.0)
[2020-09-26 16:31] LABS: ALBUMIN 3.7 GM/DL (3.2-5.2); ALT/SGPT 29 U/L (12-78); BILIRUBIN,TOTAL 0.3 MG/DL (0.2-1.0); BLOOD UREA NITROGEN 15 MG/DL (7-18); CALCIUM LEVEL 9.5 MG/DL (8.5-10.1); CARBON DIOXIDE LEVEL 30 MEQ/L (21-32); CHLORIDE LEVEL 105 MEQ/L (98-107); CREATININE FOR GFR 0.99 MG/DL (0.55-1.30); GLOMERULAR FILTRATION RATE > 60.0 (>58); GLUCOSE, FASTING 79 MG/DL (70-100); PHOSPHORUS LEVEL 4.2 MG/DL (2.5-4.9); POTASSIUM SERUM 4.5 MEQ/L (3.5-5.1); SODIUM LEVEL 139 MEQ/L (136-145); TOTAL PROTEIN 7.4 GM/DL (6.4-8.2)
[2020-09-26 16:32] LABS: FERRITIN 10 NG/ML (8-252); IRON (FE) 29 UG/DL (50-170); MAGNESIUM LEVEL 2.2 MG/DL (1.8-2.4); PERCENT SATURATION 5.9 % (13.2-45.0); THYROID STIMULATING HORMONE 0.844 uIU/ML (0.358-3.740); TOTAL IRON BINDING CAPACITY 492 UG/DL (250-450)
[2020-09-26 16:41] LABS: TOTAL 25(OH) VITAMIN D 28.8 NG/ML (30.0-100.0); VITAMIN B12 LEVEL 395 PG/ML (247-911)
[2020-10-01 15:13] LABS: VITAMIN A, RETINOL LEVEL 37.9 ug/dL (20.1-62.0); VITAMIN B1 LEVEL WHOLE BLOOD 91.9 nmol/L (66.5-200.0)
== END ==
LOC: M SFHCPLAZ 12:00
PROVIDERS: ATTEND Family Medicine
DX: K90.9 Intestinal malabsorption, unspecified (principal); Z98.84 Bariatric surgery status; N30.01 Acute cystitis with hematuria; E55.9 Vitamin D deficiency, unspecified

== ENCOUNTER → 2020-10-03 | Outpatient (CLI) | payer OTHER ==
[2020-10-03 14:07] LABS: BASO % 0.7 % (0.0-1.0); EOS % 0.7 % (0.0-3.0); HEMATOCRIT 36.8 % (36.0-47.0); HEMOGLOBIN 11.2 g/dl (12.0-15.5); LYMPH # 2.1 10^3/uL (1.5-5.0); LYMPH % 34.3 % (24.0-44.0); MEAN CORPUSCULAR HEMOGLOBIN 26.5 pg (27.0-33.0); MEAN CORPUSCULAR HGB CONC 30.4 g/dl (32.0-36.5); MEAN CORPUSCULAR VOLUME 87.2 fl (80.0-96.0); MONO # 0.4 10^3/uL (0.0-0.8); MONO % 5.8 % (0.0-5.0); NEUTROPHILS # 3.5 10^3/uL (1.5-8.5); NEUTROPHILS % 58.3 % (36.0-66.0); PLATELET COUNT, AUTOMATED 150 10^3/uL (150-450); RED BLOOD COUNT 4.22 10^6/uL (4.00-5.40)
== END ==
LOC: M LAB 13:40
PROVIDERS: ATTEND Allergy & Immunology Allergy
DX: D83.9 Common variable immunodeficiency, unspecified (principal)

== ENCOUNTER → 2020-10-25 | Outpatient (CLI) | payer OTHER ==
[~2020-10-25] MED LIST changes: -AMIT25TA PO; +AMIT25TA17 PO; +GABA-282 PO; -GABA-843 PO
--- NOTE | 2020-10-27 00:43 | ECWPNPC ---
PATIENT NAME: ADELA ALMONTE : 1980 GENDER: FEMALE VISIT DATE: 10/25/2020 DISCHARGE DATE: 10/25/20 1221 VISIT LOCKED DATE TIME: PHYSICIAN: RAVEN CORDON PHYSICIAN PAGER NO: ACTIVE RESOURCE: RAVEN CORDON REASON FOR APPOINTMENT 1. BACK PAIN HISTORY OF PRESENT ILLNESS GENERAL: -40-YEAR-OLD FEMALE IN FOR CHRONIC PAIN FOLLOW-UP. SHE RATES HER PAIN CURRENTLY AT AN 8 OUT OF 10 AND DESCRIBES IT THROBBING. SHE FEELS HER MEDICATIONS ARE HELPFUL AND DENIES MED SIDE EFFECTS AT THIS TIME. FALL RISK SCREENING: SCREENING :TWO OR MORE FALLS WITHOUT INJURY IN THE PAST YEAR PAIN SCREENING: PATIENT HAS A COMPLAINT OF ACUTE OR CHRONIC PAIN :YES LOCATION OF PAIN:UPPER BACK, MID BACK, LOW BACK INTENSITY OF PAIN (SCALE OF 1 TO 10):8 WHAT DOES YOUR PAIN FEEL LIKE:THROBBING DURATION:CONTINOUS, CONSTANT, ALL DAY PAIN IS INCREASED BY:ACTIVITIES PAIN IS DECREASED BY:USE OF PAIN MEDICATIONS HEAT AND ICE NURSING NOTE: -. PAIN CENTER INTAKE QUESTIONS: DO YOU HAVE A HISTORY OF MRSA? :YES DO YOU TAKE A BLOOD THINNERS? :NO DO YOU HAVE ANY BLEEDING DISORDERS? :NO ANY NEW NUMBNESS OR WEAKNESS IN YOUR LEGS OR ARMS? :NO ANY PACEMAKER,DEFIBRILLATOR, OR DORSAL COLUMN STIMULATOR? :NO DO YOU HAVE ANY RASHES OR OPEN SORES? :NO ARE YOU ALLERGIC TO IV DYE? :NO ARE YOU DIABETIC? :NO ANY NEW PROBLEMS WITH YOUR MEDICATIONS? :NO HAVE YOU RECEIVED A VACCINE IN THE PAST 30 DAYS? :YES IF SO WHAT VACCINE AND WHEN? FLU SHOT 09/26/20 DO YOU PLAN TO RECEIVE A VACCINE IN THE NEXT 21 DAYS? :NO DO YOU NEED ANY PRESCRIPTION? :NO DO YOU TAKE ANY IMMUNOSUPPRESSIVE MEDICATIONS? :NO ANY HISTORY OF SEIZURES? :NO ANY HISTORY OF CARDIAC ISSUES OR EVENTS? :NO DO YOU HAVE SLEEP APNEA? :YES DO YOU WEAR A CPAP?YES ANY RECENT HEAD INJURY? :NO DO YOU HAVE ANY NEW INFECTIONS? :NO IS THERE A CHANCE YOU COULD BE ? :NO ARE YOU BREAST FEEDING? :NO CURRENT MEDICATIONS TAKING VYVANSE 70 MG CAPSULE (SCHEDULE II DRUG) TAKE ONE CAPSULE BY MOUTH EVERY MORNING - MAXIMUM DAILY DOSE ONE CAPSULE ORAL TAKING BUSPIRONE HCL 30 MG TABLET TAKE ONE TABLET BY MOUTH @6AM AND TAKE ONE TABLET BY MOUTH @8PM ORAL TAKING PRAZOSIN HCL 1 MG CAPSULE TAKE ONE CAPSULE BY MOUTH @8PM ORAL TAKING IMITREX 4 MG/0.5 ML 1 INJECTION SUBCUTANEOUS NEEDED TAKING FAMOTIDINE 40 MG TABLET TAKE ONE TABLET BY MOUTH @8PM ORAL TAKING AIMOVIG 70 MG/ML SOLUTION AUTO-INJECTOR USE ONCE PER MONTH SUBCUTANEOUS TAKING PROMETHAZINE HCL 25 MG TABLET TAKE ONE TABLET BY MOUTH @6AM AND TAKE ONE TABLET BY MOUTH @NOON AND TAKE ONE TABLET BY MOUTH @6PM AND TAKE ONE TABLET BY MOUTH @8PM ORAL TAKING MOVANTIK 25 MG TABLET TAKE ONE TABLET BY MOUTH @6AM ORAL TAKING CUVITRU 4 GM/20ML SOLUTION DIRECTED SUBCUTANEOUS TAKING LIDOCAINE HCL 3 % CREAM APPLY TO ABDOMEN 30 MINUTES PRIOR TO INFUSION EXTERNAL TAKING VRAYLAR 4.5 MG CAPSULE TAKE ONE CAPSULE BY MOUTH AT BEDTIME ORALLY ONCE A DAY TAKING BOTOX 100 UNIT SOLUTION RECONSTITUTED DIRECTED INTRAMUSCULAR TAKING ALBUTEROL SULFATE (2.5 MG/3ML) 0.083% NEBULIZATION SOLUTION 3 ML NEEDED INHALATION EVERY 8 HRS TAKING FLUTICASONE PROPIONATE 50 MCG/ACT SUSPENSION 1 SPRAY IN EACH NOSTRIL NASALLY ONCE A DAY TAKING PREGABALIN 200 MG CAPSULE 1 CAPSULE ORAL THREE TIMES DAILY TAKING CETIRIZINE HCL 10 MG TABLET TAKE ONE TABLET BY MOUTH @6AM ( NEEDED) ORAL ONCE DAILY TAKING ESTRADIOL 0.025 MG/24HR PATCH WEEKLY APPLY ONE PATCH TOPICALLY ONCE PER WEEK TRANSDERMAL ONCE PER WEEK TAKING ACETAMINOPHEN 500 MG CAPSULE 1 CAPSULES NEEDED ORALLY EVERY 6 HRS PRN TAKING AZELASTINE HCL 137 MCG/SPRAY SOLUTION 1 PUFF IN EACH NOSTRIL NASALLY TWICE A DAY TAKING VENTOLIN HFA 90 MCG/ACT AEROSOL SOLUTION 1 PUFF NEEDED INHALATION EVERY 4 HRS TAKING BENTYL 10 MG/ML SOLUTION 20 MG 1 ML THREE A TIMES A DAY TAKING FERROUS SULFATE 324 (65 FE) MG TABLET DELAYED RELEASE 1 TABLET ORALLY ONCE A DAY TAKING NIFEDIPINE 20 MG CAPSULE TAKE ONE CAPSULE BY MOUTH @6AM ORAL DAILY TAKING FUROSEMIDE 20 MG TABLET TAKE ONE TABLET BY MOUTH @6AM TAKING TOPIRAMATE 50 MG TABLET TAKE ONE TABLET BY MOUTH TWICE DAILY BOTTLE ORAL TWICE DAILY TAKING AMBIEN 10 MG TABLET 1 TABLET AT BEDTIME NEEDED ORALLY ONCE A DAY TAKING ATARAX TABLET 50 MG ORAL FOUR TIMES DAILY TAKING FIBER LAXATIVE 0.52 GM CAPSULE TAKE TWO CAPSULES BY MOUTH @6AM AND TAKE TWO CAPSULES @8PM ORAL TAKING AMMONIUM LACTATE 10 % LOTION 1 APPLICATION TO AFFECTED AREA EXTERNALLY TWICE A DAY NOT-TAKING BACTRIM DS 800-160 MG TABLET 1 TABLET ORALLY BID NOT-TAKING PANTOPRAZOLE SODIUM 40 MG TABLET DELAYED RELEASE TAKE ONE TABLET BY MOUTH @6AM ORAL ONCE A DAY NOT-TAKING DICYCLOMINE HCL 20 MG TABLET TAKE ONE TABLET BY MOUTH @6AM AND TAKE ONE TABLET @NOON AND TAKE ONE TABLET @8PM ( NEEDED FOR PAIN) ORAL NOT-TAKING OSTEO BI-FLEX REGULAR STRENGTH 250-200 MG TABLET 1 TABLET WITH A MEAL ORALLY ONCE A DAY NOT-TAKING NICORETTE 4 MG LOZENGE 1 LOZENGE NEEDED MOUTH/THROAT 20 TIME(S) A DAY NOT-TAKING DOXYCYCLINE HYCLATE 100 MG CAPSULE 1 CAPSULE ORALLY TWICE A DAY MEDICATION LIST REVIEWED AND RECONCILED WITH THE PATIENT PAST MEDICAL HISTORY COMMON VARIABLE IMMUNO DEFICIENCY DISEASE HISTORY OF KIDNEY STONES CHRONIC NECK/MID/LOW BACK PAIN - PAIN CENTER CHRONIC OPIOID USE, OPIOID-INDUCED CONSTIPATION PEPTIC ULCER DISEASE, GERD, S/P GASTRIC BYPASS - DR. MILLER BIPOLAR, ANXIETY, DEPRESSION, ADHD - DR. OTERO MIGRAINE HEADACHES - CAREY NEURO, GETS BOTOX INJECTIONS SURGICAL MENOPAUSE S/P ELIA & BSO (2009) FOR ENDOMETRIOSIS; PRESCRIBED ESTRADIOL BY CHRONIC RHINITIS/SINUSITIS, ALLERGIES RAYNAUD'S SYNDROME ASTHMA, JOSEPH ON BIPAP - DR. SAI TIDWELL HISTORY OF IRON-DEFICIENCY ANEMIA TOBACCO USE; SMOKES 15 CIG/DAY HISTORY OF ALCOHOL USE DISORDER; DRINKS 2 DAYS A WEEK HISTORY OF DRUG ABUSE IN REMISSION; USED IV METH AND IV ECSTASY IN 08/2019 HEART MURMUR - ECHO 10/2017 BORDERLINE LVH, MILD LAE, SUBTLE AV SCLEROSIS, AORTIC SCLEROSIS, MILD AR, MILD MR HTN - CANNY VENTRAL HERNIA ALLERGIES MORPHINE SULFATE: TACHYCARDIA DILAUDID: TACHYCARDIA REGLAN: HIVES LAMICTAL: WELTS LATEX GLOVES SURGICAL HISTORY BACK SURGERY 1997 LAPAROTOMY X 4 FOR ENDOMETRIOSIS AT [facility], DR. CRISTOBAL 200S CHOLECYSTECTOMY 07/2008 LUMBAR LAMINECTOMY, [place] 02/2009 HYSTERECTOMY, APPENDECTOMY - FOR ENDOMETRIOSIS 12/2009 GASTRIC BYPASS (DR. CARTAGENA, [facility]) 01/2012 LAPAROSCOPY AND REMOVAL OF ADHESIONS (DR. BARRERA) 12/2012 CHEST TUBE ENDOSCOPY/COLONOSCOPY BLADDER REPAIR 10/2016 LAPROSCOPC SURGERY FOR ENDOMETRIOSIS / LYSIS OF ADHESIONS AND SCAR TISSUE (BOWEL NICKED IN OR). 12/19/17 EGD - ESOPHAGEAL PLAQUE - BIOPSY RESULTS NOT SENT TO US (DR. MILLER) 05/2018 REMOVAL CYSTS IN BILATERAL EARS REMOVAL OF NEEDLE FROM RIGHT FOOT FAMILY HISTORY FATHER: ALIVE, HAD SKIN CANCER, DIAGNOSED WITH OTHER MALIGNANT NEOPLASM OF UNSPECIFIED SITE, UNSPECIFIED CEREBRAL ARTERY OCCLUSION WITH CEREBRAL INFARCTION MOTHER: ALIVE, HYPERTENSION, UNSPECIFIED HEART DISEASE, DIABETES SIBLINGS: ALIVE, SISTER WITH JUAN'S 1 SISTER(S) . DENIES FAMILY HX OF PANCREATIC CANCER, GRANDMOTHER AND FATHER HAD MELANOMA. SOCIAL HISTORY GENERAL: TOBACCO USE ARE YOU A:CURRENT SMOKER ARE YOU INTERESTED IN QUITTING?NOT READY TO QUIT WAITING FOR PRESCRIPTION FOR CHANTIX. HOW MANY CIGARETTES A DAY DO YOU SMOKE?11-20 HOW SOON AFTER YOU WAKE UP DO YOU SMOKE YOUR FIRST CIGARETTE?AFTER 60 MIN HOW OFTEN DO YOU SMOKE CIGARETTES?EVERY DAY PATIENT COUNSELED ON THE DANGERS OF TOBACCO USE AND URGED TO QUIT:10/25/2020 SMOKING CESSATION INFORMATION GIVEN09/08/2020 LATEX QUESTIONNAIRE LATEX ALLERGY : HAVE YOU EVER DEVELOPED ANY TYPE OF REACTION AFTER HANDLING LATEX PRODUCTS SUCH RUBBER GLOVES, CONDOMS, DIAPHRAGMS, BALLOONS, SOCKS, OR UNDERWEAR?YES - PLEASE INDICATE :RUBBER GLOVES, CONDOMS, UNDERWEAR, OTHER (DOCUMENT IN NOTES) BRAS LATEX ALLERGY : HAVE YOU EVER DEVELOPED ANY TYPE OF REACTION DURING OR AFTER DENTAL APPOINTMENT, VAGINAL/RECTAL EXAMINATION, SURGICAL PROCEDURE, OR ANY OTHER EXPOSURE?YES - PLEASE INDICATE :VAGINAL EXAM LATEX RISK : HAVE YOU EVER HAD ANY DIFFICULTY BREATHING OR HIVES AFTER EATING OR HANDLING ANY FRUITS, OR VEGETABLES; SUCH KIWI, BANANAS, STONE FRUITS, OR CHESTNUTSNO LATEX RISK : DO YOU HAVE A PREVIOUS PERSONAL HISTORY OF MORE THAN NINE SURGERIES, SPINA BIFIDA, OR REPEATED CATHERIZATIONS? YES - PLEASE INDICATE : > 9 SURGERIES LATEX RISK : ARE YOU FREQUENTLY EXPOSED TO LATEX PRODUCTS IN YOUR OCCUPATION?NO DATE ASKED : 10/25/2020 LUNG CANCER SCREENING SMOKING STATUS:CURRENT SMOKER BMI CARE GOAL FOLLOW-UP ABOVE NORMAL BMI FOLLOW-UPDIETARY MANAGEMENT EDUCATION, GUIDANCE, AND COUNSELING, DIETARY NEEDS EDUCATION, EXERCISE PROMOTION: STRENGTH TRAINING ALCOHOL SCREENING DID YOU HAVE A DRINK CONTAINING ALCOHOL IN THE PAST YEAR?YES HOW OFTEN DID YOU HAVE SIX OR MORE DRINKS ON ONE OCCASION IN THE PAST YEAR?NEVER (0 POINTS) HOW MANY DRINKS DID YOU HAVE ON A TYPICAL DAY WHEN YOU WERE DRINKING IN THE PAST YEAR?1 OR 2 (0 POINTS) HOW OFTEN DID YOU HAVE A DRINK CONTAINING ALCOHOL IN THE PAST YEAR?TWO TO THREE TIMES PER WEEK (3 POINTS) POINTS3 INTERPRETATIONPOSITIVE RECREATIONAL DRUG USE DRUG USE?NO CAFFEINE CAFFEINE USE?YES 6-8 CUPS COFFEE DAILY, SODA ON OCCASIONS SEXUAL HX HAD SEX IN THE LAST 12 MONTHS (VAGINAL, ORAL, OR ANAL)?NO LMP:2009 HAVE YOU EVER HAD AN STD?NO HIV / HEP-C SCREENING HIV TEST OFFERED TO PATIENT:YES DATE OFFERED:03/13/2017 TEST ACCEPTED:NO HEP-C TEST OFFERED TO PATIENT:NO REASON:PATIENT DECLINED BUDDHISM [id number] LATTER-DAY LANGUAGE LANGUAGES SPOKEN:UKRAINIAN EDUCATION LEVEL OF EDUCATION:NOT FINISHED COLLEGE LEARNING BARRIERS / SPECIAL NEEDS CHANGE FROM LAST VISIT?NO BARRIERS TO LEARNING?NO HEARING IMPAIRED?YES VISION IMPAIRED?YES :CORRECTIVE LENSES COGNITIVELY IMPAIRED?NO READINESS TO LEARN?YES LEARNING PREFERENCES?NO LEARNING CAPABILITIES PRESENT?YES EMOTIONAL BARRIERS?NO SPECIAL DEVICES?NO LICENSED MASSAGE PRACTITIONER NEEDED?NO DOMESTIC VIOLENCE DO YOU FEEL SAFE IN YOUR ENVIRONMENT?YES OCCUPATION: UNEMPLOYED. DIET: REGULAR. EXERCISE: NO REGULAR EXERCISE. MARITAL STATUS: SINGLE. OTHERS AT HOME: NONE. - PFS REFERRAL NEEDED?NO CLERGY REFERRAL NEEDED?NO PUBLIC HEALTH REFERRAL NEEDED?NO HAS THE PATIENT BEEN EDUCATED REGARDING HIS/HER PLAN OF CARE?YES HAS THE PATIENT BEEN EDUCATED REGARDING PAIN, THE RISK FOR PAIN, THE IMPORTANCE OF EFFECTIVE PAIN MANAGEMENT, AND THE PAIN ASSESSMENT PROCESS?YES ADVANCE DIRECTIVE ADVANCE DIRECTIVE DISCUSSED WITH PATIENT:YES 07/27/2020 PT DOES NOT HAVE ANY ADVANCED DIREDCTIVES AND SHE DECLINES INFORMATION ON HCP AT THIS TIME. AD HOSPITALIZATION/MAJOR DIAGNOSTIC PROCEDURE SURGERY RELATED [facility] ([facility]) 05/2012 ADMITTED TO [facility] 12/2015 [facility] - [facility]ED BLADDER 10/2016 [facility] 2 DAY HOSPITAL STAY DUE TO NICKED BOWEL 12/19/2017 PNEUMONIA 2015 & 2018 REHAB 2014 REVIEW OF SYSTEMS CONSTITUTIONAL: ANY RECENT FEVER NO . CHILLS NO . WEIGHT CHANGE OF UNKNOWN REASONS NO . GASTROENTEROLOGY: NEW UNEXPLAINABLE CHANGES IN BOWEL CONTROL NO . CONSTIPATION NO . GENITOURINARY: ANY NEW CHANGE IN BLADDER CONTROL? NO . NEUROLOGY: NEW ONSET DIZZINESS OR NEUROLOGICAL CHANGES NOT MENTIONED NO . NEW NUMBNESS OR PAIN PATTERNS NOT MENTIONED AND PERTINENT TO TODAY'S VISIT NO . CARDIOLOGY: NEW CHEST PRESSURE NO . NEW CHEST PAIN NO . RESPIRATORY: UNEXPLAINABLE COUGH NO . NEW SHORTNESS OF BREATH NO . VITAL SIGNS WT 175 LBS, HT 67", BMI 27.41 INDEX, BP 117/72 MM HG, HR 82 /MIN, RR 18 /MIN, TEMP 96.7 F, OXYGEN SAT % 98%, SAFE IN ENV? (Y/N) YEST.MARISABEL MILES. EXAMINATION GENERAL EXAMINATION: GENERALNO ACUTE DISTRESS, WELL NOURISHED AND HYDRATED. PSYCHAPPROPRIATE MOOD AND AFFECT . LUNGS:CLEAR TO AUSCULTATION BILATERALLY, NO WHEEZES, RHONCHI, RALES. HEART:NO MURMURS, REGULAR RATE AND RHYTHM. BACK:POINT TENDER OVER THORACIC AREA, SURROUNDING SKIN SHOWS NO ERYTHEMA, ECCHYMOSIS, INCREASED WARMTH, AND/OR SKIN ERUPTIONS NOTED. BANDS OF RESTRICTIVE TISSUE NOTED OVER TRIGGER POINTS. . ASSESSMENTS MYALGIA, OTHER SITE - M79.18 (PRIMARY) TREATMENT MYALGIA, OTHER SITE NOTES: 40-YEAR-OLD FEMALE IN FOR CHRONIC PAIN FOLLOW-UP GIVEN PRESENTING SYMPTOMS AND RESULTS OF PHYSICAL EXAMINATION RECOMMEND STARTING TIZANIDINE 4 MG 3 TIMES A DAY NEEDED. FURTHER RECOMMENDED TRIGGER POINT INJECTIONS OF THE THORACIC AREA BILATERALLY WITH POST PROCEDURAL FOLLOW-UP. PATIENT HAS EXPRESSED UNDERSTANDING OF AND WAS IN AGREEMENT WITH TREATMENT PLAN. GIVEN TIME TO ASK QUESTIONS AND EXPRESS CONCERNS. , ISTOP REGISTRY REVIEWED AND DEMONSTRATES COMPLLIANCE. (REF # [id number] ) REVIEWED PRE-PROCEDURE INSTRUCTIONS WITH PATIENT. PATIENT VERBALIZED UNDERSTANDING. Arlet CARTY RN. REFERRAL TO:PHYSICAL THERAPY CANIPHYSICAL THERAPIST REASON:STRENGTH AND STRETCH OTHERS REFILL PREGABALIN CAPSULE, 200 MG, 1 CAPSULE, ORAL, THREE TIMES DAILY, 30 DAYS, 90, REFILLS 1 START TIZANIDINE HCL TABLET, 4 MG, 1 TABLET NEEDED, ORALLY, THREE TIMES A DAY PRN, 30 DAY(S), 90 PROCEDURE CODES [id number] ESTABILISHED PATIENT [facility] FACILITY CHARGE DISPOSITION & COMMUNICATION FOLLOW UP POSTPROCEDURE (REASON: BILATERAL THORACIC TRIGGER POINT INJECTIONS PT) ELECTRONICALLY SIGNED BY JAKUB VILLEDA ON 10/26/2020 AT 04:02 PM EST DISCLAIMER : THIS IS A VISIT SUMMARY EXTRACTED FROM THE [employer] (formerly [employer]) CHART. IT IS NOT A COPY OF THE [employer] (formerly [employer] PROGRESS NOTE. MTDD
== END ==
LOC: M PAIN 11:00
PROVIDERS: ATTEND Family Medicine
DX: M79.18 Myalgia, other site (principal); G47.33 Obstructive sleep apnea (adult) (pediatric); G43.909 Migraine, unspecified, not intractable, without status migrainosus; J45.909 Unspecified asthma, uncomplicated; F17.210 Nicotine dependence, cigarettes, uncomplicated; D50.9 Iron deficiency anemia, unspecified; Z86.59 Personal history of other mental and behavioral disorders; Z98.84 Bariatric surgery status; Z88.5 Allergy status to narcotic agent; Z88.8 Allergy status to other drugs, medicaments and biological substances; Z91.040 Latex allergy status; Z79.899 Other long term (current) drug therapy

== ENCOUNTER → 2020-11-05 | Outpatient (CLI) | payer OTHER | LOC: M LABSMTC 11:59 | PROVIDERS: ATTEND Anesthesiology | DX: Z20.822 Contact with and (suspected) exposure to COVID-19 (principal) ==

== ENCOUNTER → 2020-11-06 | Outpatient (CLI) | payer OTHER ==
--- NOTE | 2020-11-06 14:57 | REPVR ---
PROCEDURE INFORMATION: Exam: CT Maxillofacial Without Contrast, Sinus Exam date and time: 11/06/2020 2:34 PM Age: 40 years old Clinical indication: Pain; Other: Sinus; Additional info: Chronic sinusitis TECHNIQUE: Imaging protocol: CT Maxillofacial without contrast. Focus on the sinuses. Radiation optimization: All CT scans at this facility use at least one of these dose optimization techniques: automated exposure control; mA and/or kV adjustment per patient size (includes targeted exams where dose is matched to clinical indication); or iterative reconstruction. COMPARISON: No relevant prior studies available. FINDINGS: Frontal sinuses: No significant mucosal disease. No air-fluid levels. Tiny retention cyst inferior aspect right frontal sinus. Nasofrontal recesses are clear. Small left frontal sinus osteoma, not adjacent to ostium. Ethmoid air cells: No significant mucosal thickening. No air-fluid levels. Sphenoid sinuses: No significant mucosal disease. No air-fluid levels. Spheno-ethmoidal recesses are clear. Maxillary sinuses: Normal. No significant in. No air-fluid levels. Ostiomeatal units are patent. Nasal cavity/Septum: Nasal septum is deviated to right. Orbital cavity: Orbits are normal. Globes are unremarkable. Bones/joints: Unremarkable. No acute fracture. Soft tissues: Unremarkable. IMPRESSION: No significant sinus disease. Deviated nasal septum. Electronically signed by: Sandra New On 11/06/2020 14:57:35 PM
== END ==
LOC: M RAD 14:11
PROVIDERS: ATTEND Allergy & Immunology Allergy
DX: J32.9 Chronic sinusitis, unspecified (principal)

== ENCOUNTER → 2020-11-10 | Outpatient (CLI) | payer OTHER ==
[~2020-11-10] MED LIST changes: +BUPIVACAINE HCL 0.25% 10ML VIAL As Ordered ONE; +BUPIVACAINE HCL 0.25% 30ML VIAL As Ordered ONE; +ONDANSETRON 4 MG ORAL DISINTEGRATING TAB As Ordered ONE; +TRIAMCINOLONE ACETONIDE SUSP 40 MG/ML VIAL (J3301) As Ordered ONE; +diazePAM 5MG TABLET As Ordered ONE; +diphenhydrAMINE 25MG CAP As Ordered ONE; +oxyCODONE 5MG TAB As Ordered ONE
--- NOTE | 2020-11-14 00:40 | ECWPNPC ---
PATIENT NAME: ADELA ALMONTE : 1980 GENDER: FEMALE VISIT DATE: 11/10/2020 DISCHARGE DATE: 11/10/20 1334 VISIT LOCKED DATE TIME: PHYSICIAN: HARRISON ZEPEDA MD PHYSICIAN PAGER NO: ACTIVE RESOURCE: HARRISON ZEPEDA MD REASON FOR APPOINTMENT 1. TRIGGER POINT INJECTIONS BILATERAL THORACIC HISTORY OF PRESENT ILLNESS GENERAL: -. FALL RISK SCREENING: SCREENING :NO FALLS REPORTED IN THE LAST YEAR PAIN SCREENING: PATIENT HAS A COMPLAINT OF ACUTE OR CHRONIC PAIN :YES PAIN IS DECREASED BY:USE OF PAIN MEDICATIONS,OTHERS PAIN IS INCREASED BY:ACTIVITIES LYRICS, ICE, HEAT SOMETIMES DURATION:CONTINOUS WHAT DOES YOUR PAIN FEEL LIKE:ACHING,BURNING,SHARP,STABBING,CONTINOUS,OTHER NUMBING/TINGLING INTENSITY OF PAIN (SCALE OF 1 TO 10):8 LOCATION OF PAIN:MID BACK,UPPER BACK,LOW BACK MID BACK PAIN IS THE GREATEST NURSING NOTE: -. PAIN CENTER INTAKE QUESTIONS: DO YOU HAVE A HISTORY OF MRSA? :YES DO YOU TAKE A BLOOD THINNERS? :NO DO YOU HAVE ANY BLEEDING DISORDERS? :YES IRON DEFICIENCY ANEMIA ANY NEW NUMBNESS OR WEAKNESS IN YOUR LEGS OR ARMS? :NO ANY PACEMAKER,DEFIBRILLATOR, OR DORSAL COLUMN STIMULATOR? :NO DO YOU HAVE ANY RASHES OR OPEN SORES? :NO ARE YOU ALLERGIC TO IV DYE? :NO ARE YOU DIABETIC? :NO ANY NEW PROBLEMS WITH YOUR MEDICATIONS? :NO HAVE YOU RECEIVED A VACCINE IN THE PAST 30 DAYS? :NO DO YOU PLAN TO RECEIVE A VACCINE IN THE NEXT 21 DAYS? :NO DO YOU TAKE ANY IMMUNOSUPPRESSIVE MEDICATIONS? :NO ANY HISTORY OF SEIZURES? :NO ANY HISTORY OF CARDIAC ISSUES OR EVENTS? :NO DO YOU HAVE SLEEP APNEA? :YES DO YOU WEAR A CPAP?NO ANY RECENT HEAD INJURY? :NO DO YOU HAVE ANY NEW INFECTIONS? :NO IS THERE A CHANCE YOU COULD BE ? :NO ARE YOU BREAST FEEDING? :NO WHEN DID YOU LAST EAT? : 11/09/2020 1800 WHEN DID YOU LAST DRINK? : 11/10/2020 0600 WHAT DID YOU LAST DRINK? : BLACK COFFEE NAME OF PERSON DRIVING YOU HOME? : [facility] DO YOU HAVE ANY OTHER QUESTIONS OR CONCERNS? : - CURRENT MEDICATIONS TAKING VYVANSE 70 MG CAPSULE (SCHEDULE II DRUG) TAKE ONE CAPSULE BY MOUTH EVERY MORNING - MAXIMUM DAILY DOSE ONE CAPSULE ORAL TAKING BUSPIRONE HCL 30 MG TABLET TAKE ONE TABLET BY MOUTH @6AM AND TAKE ONE TABLET BY MOUTH @8PM ORAL TAKING PRAZOSIN HCL 1 MG CAPSULE TAKE ONE CAPSULE BY MOUTH @8PM ORAL TAKING IMITREX 4 MG/0.5 ML 1 INJECTION SUBCUTANEOUS NEEDED TAKING FAMOTIDINE 40 MG TABLET TAKE ONE TABLET BY MOUTH @8PM ORAL TAKING AIMOVIG 70 MG/ML SOLUTION AUTO-INJECTOR USE ONCE PER MONTH SUBCUTANEOUS TAKING PROMETHAZINE HCL 25 MG TABLET TAKE ONE TABLET BY MOUTH @6AM AND TAKE ONE TABLET BY MOUTH @NOON AND TAKE ONE TABLET BY MOUTH @6PM AND TAKE ONE TABLET BY MOUTH @8PM ORAL TAKING MOVANTIK 25 MG TABLET TAKE ONE TABLET BY MOUTH @6AM ORAL TAKING CUVITRU 4 GM/20ML SOLUTION DIRECTED SUBCUTANEOUS TAKING LIDOCAINE HCL 3 % CREAM APPLY TO ABDOMEN 30 MINUTES PRIOR TO INFUSION EXTERNAL TAKING VRAYLAR 4.5 MG CAPSULE TAKE ONE CAPSULE BY MOUTH AT BEDTIME ORALLY ONCE A DAY TAKING BOTOX 100 UNIT SOLUTION RECONSTITUTED DIRECTED INTRAMUSCULAR TAKING ALBUTEROL SULFATE (2.5 MG/3ML) 0.083% NEBULIZATION SOLUTION 3 ML NEEDED INHALATION EVERY 8 HRS TAKING FLUTICASONE PROPIONATE 50 MCG/ACT SUSPENSION 1 SPRAY IN EACH NOSTRIL NASALLY ONCE A DAY TAKING CETIRIZINE HCL 10 MG TABLET TAKE ONE TABLET BY MOUTH @6AM ( NEEDED) ORAL ONCE DAILY TAKING ESTRADIOL 0.025 MG/24HR PATCH WEEKLY APPLY ONE PATCH TOPICALLY ONCE PER WEEK TRANSDERMAL ONCE PER WEEK TAKING ACETAMINOPHEN 500 MG CAPSULE 1 CAPSULES NEEDED ORALLY EVERY 6 HRS PRN TAKING AZELASTINE HCL 137 MCG/SPRAY SOLUTION 1 PUFF IN EACH NOSTRIL NASALLY TWICE A DAY TAKING VENTOLIN HFA 90 MCG/ACT AEROSOL SOLUTION 1 PUFF NEEDED INHALATION EVERY 4 HRS TAKING BENTYL 10 MG/ML SOLUTION 20 MG 1 ML THREE A TIMES A DAY TAKING FERROUS SULFATE 324 (65 FE) MG TABLET DELAYED RELEASE 1 TABLET ORALLY ONCE A DAY TAKING NIFEDIPINE 20 MG CAPSULE TAKE ONE CAPSULE BY MOUTH @6AM ORAL DAILY TAKING TOPIRAMATE 50 MG TABLET TAKE ONE TABLET BY MOUTH TWICE DAILY BOTTLE ORAL TWICE DAILY TAKING AMBIEN 10 MG TABLET 1 TABLET AT BEDTIME NEEDED ORALLY ONCE A DAY TAKING ATARAX TABLET 50 MG ORAL FOUR TIMES DAILY TAKING TIZANIDINE HCL 4 MG TABLET 1 TABLET NEEDED ORALLY THREE TIMES A DAY PRN TAKING PREGABALIN 200 MG CAPSULE 1 CAPSULE ORAL THREE TIMES DAILY TAKING FUROSEMIDE 20 MG TABLET TAKE ONE TABLET BY MOUTH @6AM TAKING PANTOPRAZOLE SODIUM 40 MG TABLET DELAYED RELEASE TAKE ONE TABLET BY MOUTH @6AM ORAL ONCE A DAY TAKING DICYCLOMINE HCL 20 MG TABLET TAKE ONE TABLET BY MOUTH @6AM AND TAKE ONE TABLET @NOON AND TAKE ONE TABLET @8PM ( NEEDED FOR PAIN) ORAL NOT-TAKING FIBER LAXATIVE 0.52 GM CAPSULE TAKE TWO CAPSULES BY MOUTH @6AM AND TAKE TWO CAPSULES @8PM ORAL NOT-TAKING AMMONIUM LACTATE 10 % LOTION 1 APPLICATION TO AFFECTED AREA EXTERNALLY TWICE A DAY NOT-TAKING BACTRIM DS 800-160 MG TABLET 1 TABLET ORALLY BID NOT-TAKING OSTEO BI-FLEX REGULAR STRENGTH 250-200 MG TABLET 1 TABLET WITH A MEAL ORALLY ONCE A DAY NOT-TAKING NICORETTE 4 MG LOZENGE 1 LOZENGE NEEDED MOUTH/THROAT 20 TIME(S) A DAY NOT-TAKING DOXYCYCLINE HYCLATE 100 MG CAPSULE 1 CAPSULE ORALLY TWICE A DAY MEDICATION LIST REVIEWED AND RECONCILED WITH THE PATIENT PAST MEDICAL HISTORY COMMON VARIABLE IMMUNO DEFICIENCY DISEASE HISTORY OF KIDNEY STONES CHRONIC NECK/MID/LOW BACK PAIN - PAIN CENTER CHRONIC OPIOID USE, OPIOID-INDUCED CONSTIPATION PEPTIC ULCER DISEASE, GERD, S/P GASTRIC BYPASS - DR. MILLER BIPOLAR, ANXIETY, DEPRESSION, ADHD - DR. OTERO MIGRAINE HEADACHES - CAREY NEURO, GETS BOTOX INJECTIONS SURGICAL MENOPAUSE S/P ELIA & BSO (2009) FOR ENDOMETRIOSIS; PRESCRIBED ESTRADIOL BY CHRONIC RHINITIS/SINUSITIS, ALLERGIES RAYNAUD'S SYNDROME ASTHMA, JOSEPH ON BIPAP - DR. SAI TIDWELL HISTORY OF IRON-DEFICIENCY ANEMIA TOBACCO USE; SMOKES 15 CIG/DAY HISTORY OF ALCOHOL USE DISORDER; DRINKS 2 DAYS A WEEK HISTORY OF DRUG ABUSE IN REMISSION; USED IV METH AND IV ECSTASY IN 08/2019 HEART MURMUR - ECHO 10/2017 BORDERLINE LVH, MILD LAE, SUBTLE AV SCLEROSIS, AORTIC SCLEROSIS, MILD AR, MILD MR HTN - CANNY VENTRAL HERNIA ALLERGIES MORPHINE SULFATE: TACHYCARDIA DILAUDID: TACHYCARDIA REGLAN: HIVES LAMICTAL: WELTS LATEX GLOVES SOCIAL HISTORY GENERAL: TOBACCO USE ARE YOU A:CURRENT SMOKER PATIENT COUNSELED ON THE DANGERS OF TOBACCO USE AND URGED TO QUIT:11/10/2020 HOW OFTEN DO YOU SMOKE CIGARETTES?EVERY DAY HOW SOON AFTER YOU WAKE UP DO YOU SMOKE YOUR FIRST CIGARETTE?AFTER 60 MIN HOW MANY CIGARETTES A DAY DO YOU SMOKE?11-20 ARE YOU INTERESTED IN QUITTING?NOT READY TO QUIT WAITING FOR PRESCRIPTION FOR CHANTIX. SMOKING CESSATION INFORMATION GIVEN09/08/2020 LATEX QUESTIONNAIRE LATEX ALLERGY : HAVE YOU EVER DEVELOPED ANY TYPE OF REACTION AFTER HANDLING LATEX PRODUCTS SUCH RUBBER GLOVES, CONDOMS, DIAPHRAGMS, BALLOONS, SOCKS, OR UNDERWEAR?YES LATEX ALLERGY : HAVE YOU EVER DEVELOPED ANY TYPE OF REACTION DURING OR AFTER DENTAL APPOINTMENT, VAGINAL/RECTAL EXAMINATION, SURGICAL PROCEDURE, OR ANY OTHER EXPOSURE?YES - PLEASE INDICATE :RUBBER GLOVES, CONDOMS, UNDERWEAR, OTHER (DOCUMENT IN NOTES) BRAS - PLEASE INDICATE :VAGINAL EXAM DATE ASKED : 10/25/2020 LATEX RISK : HAVE YOU EVER HAD ANY DIFFICULTY BREATHING OR HIVES AFTER EATING OR HANDLING ANY FRUITS, OR VEGETABLES; SUCH KIWI, BANANAS, STONE FRUITS, OR CHESTNUTSNO LATEX RISK : DO YOU HAVE A PREVIOUS PERSONAL HISTORY OF MORE THAN NINE SURGERIES, SPINA BIFIDA, OR REPEATED CATHERIZATIONS? YES - PLEASE INDICATE : > 9 SURGERIES LATEX RISK : ARE YOU FREQUENTLY EXPOSED TO LATEX PRODUCTS IN YOUR OCCUPATION?NO LUNG CANCER SCREENING SMOKING STATUS:CURRENT SMOKER BMI CARE GOAL FOLLOW-UP ABOVE NORMAL BMI FOLLOW-UPDIETARY MANAGEMENT EDUCATION, GUIDANCE, AND COUNSELING, DIETARY NEEDS EDUCATION, EXERCISE PROMOTION: STRENGTH TRAINING ALCOHOL SCREENING DID YOU HAVE A DRINK CONTAINING ALCOHOL IN THE PAST YEAR?YES HOW OFTEN DID YOU HAVE SIX OR MORE DRINKS ON ONE OCCASION IN THE PAST YEAR?NEVER (0 POINTS) HOW MANY DRINKS DID YOU HAVE ON A TYPICAL DAY WHEN YOU WERE DRINKING IN THE PAST YEAR?1 OR 2 (0 POINTS) HOW OFTEN DID YOU HAVE A DRINK CONTAINING ALCOHOL IN THE PAST YEAR?TWO TO THREE TIMES PER WEEK (3 POINTS) POINTS3 INTERPRETATIONPOSITIVE RECREATIONAL DRUG USE DRUG USE?NO CAFFEINE CAFFEINE USE?YES 6-8 CUPS COFFEE DAILY, SODA ON OCCASIONS SEXUAL HX HAD SEX IN THE LAST 12 MONTHS (VAGINAL, ORAL, OR ANAL)?NO LMP:2009 HAVE YOU EVER HAD AN STD?NO HIV / HEP-C SCREENING HIV TEST OFFERED TO PATIENT:YES DATE OFFERED:03/13/2017 TEST ACCEPTED:NO HEP-C TEST OFFERED TO PATIENT:NO REASON:PATIENT DECLINED ISLAM [id number] 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 DIET: REGULAR. EXERCISE: NO REGULAR EXERCISE. MARITAL STATUS: SINGLE. OTHERS AT HOME: NONE. - PFS REFERRAL NEEDED?NO CLERGY REFERRAL NEEDED?NO PUBLIC HEALTH REFERRAL NEEDED?NO HAS THE PATIENT BEEN EDUCATED REGARDING HIS/HER PLAN OF CARE?YES HAS THE PATIENT BEEN EDUCATED REGARDING PAIN, THE RISK FOR PAIN, THE IMPORTANCE OF EFFECTIVE PAIN MANAGEMENT, AND THE PAIN ASSESSMENT PROCESS?YES ADVANCE DIRECTIVE ADVANCE DIRECTIVE DISCUSSED WITH PATIENT:YES 07/27/2020 PT DOES NOT HAVE ANY ADVANCED DIREDCTIVES AND SHE DECLINES INFORMATION ON HCP AT THIS TIME. AD VITAL SIGNS WT 198.8 LBS, HT 67", BMI 31.13 INDEX, BP 122/70 MM HG, HR 84 /MIN, RR 18 /MIN, TEMP 98.0 F, OXYGEN SAT % 99%, SAFE IN ENV? (Y/N) YES, REVIEWED BY: Darya PARIS RN. EXAMINATION GENERAL EXAMINATION: THE PATIENT IS ALERT, ORIENTED TIMES THREE AND COOPERATIVE. LUNGS ARE CLEAR TO AUSCULTATION. HEART SHOWS REGULAR RHYTHM, NO MURMURS AND NO GALLOPS. ASSESSMENTS MYALGIA, OTHER SITE - M79.18 (PRIMARY) TREATMENT MYALGIA, OTHER SITE MEDICATION: VALIUM TAB 10MG ORALLY (DIAZEPAM)ANTHONY GARCIA 11/10/2020 12:42:24 PM > VERIFIED HOLLI PIERCE 11/10/2020 12:47:43 PM > ADMINISTERED MEDICATION: OXYCODONE HCL TAB 10MG ORALLYANTHONY GARCIA 11/10/2020 12:42:45 PM > VERIFIED HOLLI PIERCE 11/10/2020 12:48:04 PM > ADMINISTERED COMPLETION OF PROCEDURAL VISIT WHEN MEETS CRITERIATANYA HUDSON 11/10/2020 1:40:34 PM > CRITERIA MET EXIT VITALS 120/71, 95%, 78HR, 18R MEDICATION: (PAIN) ZOFRAN ODT TAB 4MG DISSOLVE ON TONGUE (ONDANSETRON)ANTHONY GARCIA 11/10/2020 12:43:05 PM > VERIFIED HOLLI PIERCE 11/10/2020 12:46:39 PM > ADMINISTERED MEDICATION: (PAIN) BENADRYL TAB 25MG ORALLY (DIPHENHYDRAMINE)ANTHONY GARCIA 11/10/2020 12:43:22 PM > VERIFIED HOLLI PIERCE 11/10/2020 12:48:26 PM > ADMINISTERED OTHERS NOTES: LEFT MESSAGE 1530, 11/09/20. PROCEDURES PAIN NURSING RECORD PROCEDURE IN ROOM 1051, PHYSICIAN IN ROOM 1317, START 1320, FINISH 1325, PHYSICIAN OUT OF ROOM 1325, OUT OF ROOM 1333, ECG N/A, PATIENT SHIELDED N/A, SAFETY STRAP N/A, PREP ALCOHOL BY DOCTOR ZEPEDA, DRESSING TEGADERM BY Haven HUDSON RN LOC: 1. ALERT, ORIENTED, [facility] 11/10/2020 1300 PM > RESP: 1. REGULAR, NO DYSPNEA, [facility] 11/10/2020 1:00 PM > SKIN: 1. WARM, DRY, [facility] 11/10/2020 1:00 PM > POSITION: 5. SITTING, [facility] 11/10/2020 1:00 PM > NOTES Genesis HUDSON RN COMPLETION OF PROCEDURE APPOINTMENT: POST PAIN 0, DRESSING SITE DRY AND INTACT, IV N/A, GAIT STEADY, TEACHING COMPLETED, PATIENT ACKNOWLEDGES UNDERSTANDING YES V/U OF TEACHING, PROCEDURE APPOINTMENT COMPLETED AT 1333 PN TRIGGER POINT INJECTION WITH STEROIDS PRE PROCEDURE DIAGNOSIS 1. MYALGIA 2. PAIN AT BILATERAL THORACIC AREA POST PROCEDURE DIAGNOSIS 1. MYALGIA 2. PAIN AT BILATERAL THORACIC AREA PROCEDURE TRIGGER POINT INJECTION AT BILATERAL THORACIC AREA SURGEON DR. HARRISON ZEPEDA COUNTERINTELLIGENCE AGENT NONE ANESTHESIA LOCAL PRE PROCEDURE NOTE THE PATIENT HAS A HISTORY OF CHRONIC PAIN AT THE RIGHT AND LEFT THORACIC AREA. I EVALUATED THE PATIENT AND REVIEWED THE CHART. THERE IS EVIDENCE OF BANDS OF TISSUE WITH RESTRICTION OF MOVEMENT AND PRESENCE OF TRIGGER POINT AT THE RIGHT AND LEFT THORACIC AREA. I WENT OVER THE RISKS, ALTERNATIVES, AND BENEFITS ASSOCIATED WITH THIS PROCEDURE. THE PATIENT WOULD LIKE TO PROCEED AND GIVE CONSENT TO PERFORMED THE PROCEDURE. THE PATIENT DENIES UNEXPLAINABLE WEIGHT LOSS, FEVER, CHILLS, OR NEW CHANGES IN URINARY OR BOWEL CONTROL. THE PATIENT IS COVID-19 NEGATIVE DESCRIPTION OF PROCEDURE THE PATIENT WAS BROUGHT TO THE PROCEDURE ROOM AND PLACED IN THE SITTING POSITION. THE AREA WAS CLEANED WITH ALCOHOL. THE PROCEDURE WAS DONE USING ASEPTIC STERILE TECHNIQUE. A TIMEOUT WAS PERFORMED WHERE THE CONSENTED SITE WAS VERIFIED WITH EVERYONE IN THE ROOM. USING A 25-GAUGE NEEDLE, TRIGGER POINTS WERE INJECTED AT THE RIGHT AND LEFT THORACIC AREA WITH A TOTAL OF 40 ML OF BUPIVACAINE 0.25% AND KENALOG 40 MG. THE MEDICATIONS WERE VERIFIED WITH THE NURSE. THERE WAS NO EVIDENCE OF BLOOD OR PARESTHESIA DURING THE PROCEDURE. THE PATIENT WAS SENT TO THE RECOVERY ROOM. THE PATIENT WAS MOVING THE EXTREMITIES AND DOING WELL. THERE WERE NO COMPLICATIONS DURING THE PROCEDURE. ESTIMATED BLOOD LOSS WAS LESS THAN 5 ML POST PROCEDURE NOTE THE PROCEDURE DONE WAS DISCUSSED WITH THE PATIENT. THE PATIENT WILL BE SEEN IN A FOLLOW UP IN THE NEXT FEW WEEKS. I AM LOOKING FOR LONG LASTING PAIN RELIEF FOR THE PATIENT WITH THIS INTERVENTION. INSTRUCTIONS WERE GIVEN, QUESTIONS WERE ANSWERED, AND THE PATIENT EXPRESSED UNDERSTANDING AND AGREES WITH THE PLAN. I, SANJUANA SERNA, DOCUMENTED THE ABOVE INFORMATION ACTING A SCRIBE FOR DR. ZEPEDA. I HAVE REVIEWED THE ABOVE DOCUMENT, WRITTEN BY SANJUANA SERNA, SALES REPRESENTATIVE PRINTING, AND I VERIFY THAT IT IS ACCURATE PROCEDURE CODES 61804 INJ TRIGGER POINT 10/07 [facility] DISPOSITION & COMMUNICATION FOLLOW UP FOLLOW UP WITH FACULTY NEUROPSYCHOLOGIST (REASON: POST TRIGGER POINT INJECTIONS BILATERAL THORACIC ) ELECTRONICALLY SIGNED BY HARRISON ZEPEDA MD, MD ON 11/13/2020 AT 12:17 PM EST DISCLAIMER : THIS IS A VISIT SUMMARY EXTRACTED FROM THE [employer] CHART. IT IS NOT A COPY OF THE [employer] PROGRESS NOTE. GELACIO
== END ==
LOC: M PAIN 13:00
PROVIDERS: ATTEND Anesthesiology
DX: M79.18 Myalgia, other site (principal); G47.33 Obstructive sleep apnea (adult) (pediatric); G43.909 Migraine, unspecified, not intractable, without status migrainosus; J45.909 Unspecified asthma, uncomplicated; D50.9 Iron deficiency anemia, unspecified; F17.210 Nicotine dependence, cigarettes, uncomplicated; Z86.14 Personal history of Methicillin resistant Staphylococcus aureus infection; Z86.59 Personal history of other mental and behavioral disorders; Z98.84 Bariatric surgery status; Z88.5 Allergy status to narcotic agent; Z88.8 Allergy status to other drugs, medicaments and biological substances; Z91.040 Latex allergy status; Z79.899 Other long term (current) drug therapy
CPT/HCPCS: 20552; J3301; Q0162

== ENCOUNTER → 2020-11-30 | Outpatient (CLI) | payer OTHER ==
[~2020-11-30] MED LIST changes: -BUPIVACAINE HCL 0.25% 10ML VIAL As Ordered ONE; -BUPIVACAINE HCL 0.25% 30ML VIAL As Ordered ONE; +E-Z-PAQUE 96% w/w SUSP 176GM BTL As Ordered ONE; -ONDANSETRON 4 MG ORAL DISINTEGRATING TAB As Ordered ONE; -TRIAMCINOLONE ACETONIDE SUSP 40 MG/ML VIAL (J3301) As Ordered ONE; -diazePAM 5MG TABLET As Ordered ONE; -diphenhydrAMINE 25MG CAP As Ordered ONE; -oxyCODONE 5MG TAB As Ordered ONE
--- NOTE | 2020-11-30 18:17 | REP ---
INDICATION: CHANGE IN BOWEL HABITS. COMPARISON: None TECHNIQUE: This procedure was performed by Luz Callahan [facility], under the direct supervision of Dr. Carmona. Images were reviewed with Dr. Carmona prior to dictation. Liquid barium was administered and the barium column was followed through the small bowel to the level of the terminal ileum. FINDINGS: The registered clinical dietitian film shows no organomegaly or pathological masses. The intestinal gas pattern is unremarkable. There are postsurgical ina in both the right and left upper quadrants as well as the right lower quadrant. Small bowel transit time is approximately 20 minutes. During fluoroscopy gentle palpation shows all loops are freely movable and pliable. There is no fixed angulated loops. The small bowel mucosal pattern is normal in course and caliber. There is no transition to suggest a partial small bowel obstruction. Spot filming of the terminal ileum shows it to be unremarkable. IMPRESSION: Small bowel transit time of approximately 20 minutes. 0.8 minutes of fluoroscopy time was utilized for this procedure. Some fluoroscopic images are performed with last image hold technology. These images require no additional radiation. <Electronically signed by Luz Callahan > 11/30/20 1704 <Electronically signed by Darío Carmona > 11/30/20 1816
== END ==
LOC: M RAD 07:58
PROVIDERS: ATTEND Internal Medicine Gastroenterology
DX: R19.7 Diarrhea, unspecified (principal); R63.4 Abnormal weight loss; R19.4 Change in bowel habit

== ENCOUNTER → 2020-12-14 | Outpatient (CLI) | payer OTHER ==
[~2020-12-14] MED LIST changes: -AMIT10TA PO; +AMIT10TA7 PO; -E-Z-PAQUE 96% w/w SUSP 176GM BTL As Ordered ONE
--- NOTE | 2020-12-16 04:27 | ECWPNPC ---
PATIENT NAME: ADELA ALMONTE : 1980 GENDER: FEMALE VISIT DATE: 12/14/2020 DISCHARGE DATE: 12/14/20 1119 VISIT LOCKED DATE TIME: PHYSICIAN: RAVEN CORDON PHYSICIAN PAGER NO: ACTIVE RESOURCE: RAVEN CORDON REASON FOR APPOINTMENT 1. POST BILATERAL THORACIC TRIGGER POINT INJECTIONS HISTORY OF PRESENT ILLNESS GENERAL: - 40-YEAR-OLD FEMALE IN FOR POST TRIGGER POINT INJECTION FOLLOW-UP. PATIENT FEELS THE PROCEDURE WAS UNSUCCESSFUL. SHE RATES HER PAIN CURRENTLY AT A 7 OUT OF 10 AND DESCRIBES IT CONTINUOUS AND SHOOTING. FALL RISK SCREENING: SCREENING TWO FALLS REPORTED IN THE LAST YEAR WITH INJURY. PATIENT DID NOT SEEK MEDICAL TREATMENT.. PAIN SCREENING: PATIENT HAS A COMPLAINT OF ACUTE OR CHRONIC PAIN :YES LOCATION OF PAIN:MID BACK, KNEES INTENSITY OF PAIN (SCALE OF 1 TO 10):7 WHAT DOES YOUR PAIN FEEL LIKE:CONTINOUS, SHOOTING DURATION:CONTINOUS, CONSTANT, AWAKENS FROM SLEEP PAIN IS INCREASED BY:ACTIVITIES, PROLONGED STANDING PAIN IS DECREASED BY:OTHERS ICE NURSING NOTE: -. PAIN CENTER INTAKE QUESTIONS: DO YOU HAVE A HISTORY OF MRSA? :YES HISTORY OF MRSA DO YOU TAKE A BLOOD THINNERS? :NO DO YOU HAVE ANY BLEEDING DISORDERS? :NO ANEMIA ANY NEW NUMBNESS OR WEAKNESS IN YOUR LEGS OR ARMS? :YES NUMBNESS AND TINGLING IN HANDS AND FEET AND MID BACK. ANY PACEMAKER,DEFIBRILLATOR, OR DORSAL COLUMN STIMULATOR? :NO DO YOU HAVE ANY RASHES OR OPEN SORES? :NO ARE YOU ALLERGIC TO IV DYE? :NO ARE YOU DIABETIC? :NO ANY NEW PROBLEMS WITH YOUR MEDICATIONS? :NO HAVE YOU RECEIVED A VACCINE IN THE PAST 30 DAYS? :NO DO YOU PLAN TO RECEIVE A VACCINE IN THE NEXT 21 DAYS? :YES IF SO WHAT VACCINE AND WHEN? MAY CONSIDER COVID VACCINATION DO YOU NEED ANY PRESCRIPTION? :NO DO YOU TAKE ANY IMMUNOSUPPRESSIVE MEDICATIONS? :NO DO YOU HAVE ANY KIDNEY OR LIVER DISEASE? :NO OCCASIONAL KIDNEY STONES IS THERE A CHANCE YOU COULD BE ? :NO ARE YOU BREAST FEEDING? :NO CURRENT MEDICATIONS TAKING VYVANSE 70 MG CAPSULE (SCHEDULE II DRUG) TAKE ONE CAPSULE BY MOUTH EVERY MORNING - MAXIMUM DAILY DOSE ONE CAPSULE ORAL TAKING BUSPIRONE HCL 30 MG TABLET TAKE ONE TABLET BY MOUTH @6AM AND TAKE ONE TABLET BY MOUTH @8PM ORAL TAKING PRAZOSIN HCL 1 MG CAPSULE TAKE ONE CAPSULE BY MOUTH @8PM ORAL TAKING IMITREX 4 MG/0.5 ML 1 INJECTION SUBCUTANEOUS NEEDED TAKING FAMOTIDINE 40 MG TABLET TAKE ONE TABLET BY MOUTH @8PM ORAL TAKING AIMOVIG 70 MG/ML SOLUTION AUTO-INJECTOR USE ONCE PER MONTH SUBCUTANEOUS TAKING PROMETHAZINE HCL 25 MG TABLET TAKE ONE TABLET BY MOUTH @6AM AND TAKE ONE TABLET BY MOUTH @NOON AND TAKE ONE TABLET BY MOUTH @6PM AND TAKE ONE TABLET BY MOUTH @8PM ORAL TAKING MOVANTIK 25 MG TABLET TAKE ONE TABLET BY MOUTH @6AM ORAL TAKING CUVITRU 4 GM/20ML SOLUTION DIRECTED SUBCUTANEOUS TAKING LIDOCAINE HCL 3 % CREAM APPLY TO ABDOMEN 30 MINUTES PRIOR TO INFUSION EXTERNAL TAKING VRAYLAR 4.5 MG CAPSULE TAKE ONE CAPSULE BY MOUTH AT BEDTIME ORALLY ONCE A DAY TAKING BOTOX 100 UNIT SOLUTION RECONSTITUTED DIRECTED INTRAMUSCULAR TAKING ALBUTEROL SULFATE (2.5 MG/3ML) 0.083% NEBULIZATION SOLUTION 3 ML NEEDED INHALATION EVERY 8 HRS TAKING ESTRADIOL 0.025 MG/24HR PATCH WEEKLY APPLY ONE PATCH TOPICALLY ONCE PER WEEK TRANSDERMAL ONCE PER WEEK TAKING ACETAMINOPHEN 500 MG CAPSULE 1 CAPSULES NEEDED ORALLY EVERY 6 HRS PRN TAKING VENTOLIN HFA 90 MCG/ACT AEROSOL SOLUTION 1 PUFF NEEDED INHALATION EVERY 4 HRS TAKING NIFEDIPINE 20 MG CAPSULE TAKE ONE CAPSULE BY MOUTH @6AM ORAL DAILY TAKING AMBIEN 10 MG TABLET 1 TABLET AT BEDTIME NEEDED ORALLY ONCE A DAY TAKING ATARAX TABLET 50 MG ORAL FOUR TIMES DAILY NEEDED TAKING TIZANIDINE HCL 4 MG TABLET 1 TABLET NEEDED ORALLY THREE TIMES A DAY PRN TAKING PREGABALIN 200 MG CAPSULE 1 CAPSULE ORAL THREE TIMES DAILY TAKING PANTOPRAZOLE SODIUM 40 MG TABLET DELAYED RELEASE TAKE ONE TABLET BY MOUTH @6AM ORAL ONCE A DAY TAKING DICYCLOMINE HCL 20 MG TABLET TAKE ONE TABLET BY MOUTH @6AM AND TAKE ONE TABLET @NOON AND TAKE ONE TABLET @8PM ( NEEDED FOR PAIN) ORAL TAKING TOPIRAMATE 50 MG TABLET TAKE ONE TABLET BY MOUTH TWICE DAILY BOTTLE ORAL TWICE DAILY TAKING FIBER LAXATIVE 625 MG TABLET 2 TABLETS NEEDED ORALLY THREE TIMES A DAY TAKING FERROUS SULFATE 324 (65 FE) MG TABLET DELAYED RELEASE 1 TABLET ORALLY ONCE A DAY TAKING AZELASTINE HCL 137 MCG/SPRAY SOLUTION 1 PUFF IN EACH NOSTRIL NASALLY TWICE A DAY TAKING CETIRIZINE HCL 10 MG TABLET TAKE ONE TABLET BY MOUTH @6AM ( NEEDED) ORAL ONCE DAILY TAKING FLUTICASONE PROPIONATE 50 MCG/ACT SUSPENSION 1 SPRAY IN EACH NOSTRIL NASALLY ONCE A DAY TAKING NICOTROL 10 MG INHALER 1 CARTRIDGE NEEDED INHALATION 16 TIME(S) A DAY TAKING FUROSEMIDE 20 MG TABLET TAKE ONE TABLET BY MOUTH @6AM UNKNOWN NICORETTE 4 MG LOZENGE 1 LOZENGE NEEDED MOUTH/THROAT 20 TIME(S) A DAY MEDICATION LIST REVIEWED AND RECONCILED WITH THE PATIENT PAST MEDICAL HISTORY COMMON VARIABLE IMMUNO DEFICIENCY DISEASE HISTORY OF KIDNEY STONES CHRONIC NECK/MID/LOW BACK PAIN - PAIN CENTER CHRONIC OPIOID USE, OPIOID-INDUCED CONSTIPATION PEPTIC ULCER DISEASE, GERD, S/P GASTRIC BYPASS - DR. MILLER BIPOLAR, ANXIETY, DEPRESSION, ADHD - DR. OTERO MIGRAINE HEADACHES - CAREY NEURO, GETS BOTOX INJECTIONS SURGICAL MENOPAUSE S/P ELIA & BSO (2009) FOR ENDOMETRIOSIS; PRESCRIBED ESTRADIOL BY CHRONIC RHINITIS/SINUSITIS, ALLERGIES RAYNAUD'S SYNDROME ASTHMA, JOSEPH ON BIPAP - DR. SAI TIDWELL HISTORY OF IRON-DEFICIENCY ANEMIA TOBACCO USE; SMOKES 15 CIG/DAY HISTORY OF ALCOHOL USE DISORDER; DRINKS 2 DAYS A WEEK HISTORY OF DRUG ABUSE IN REMISSION; USED IV METH AND IV ECSTASY IN 08/2019 HEART MURMUR - ECHO 10/2017 BORDERLINE LVH, MILD LAE, SUBTLE AV SCLEROSIS, AORTIC SCLEROSIS, MILD AR, MILD MR HTN - CANNY VENTRAL HERNIA ALLERGIES MORPHINE SULFATE: TACHYCARDIA DILAUDID: TACHYCARDIA REGLAN: HIVES LAMICTAL: WELTS LATEX GLOVES SOCIAL HISTORY GENERAL: TOBACCO USE ARE YOU A:CURRENT SMOKER HOW OFTEN DO YOU SMOKE CIGARETTES?EVERY DAY HOW SOON AFTER YOU WAKE UP DO YOU SMOKE YOUR FIRST CIGARETTE?AFTER 60 MIN HOW MANY CIGARETTES A DAY DO YOU SMOKE?31 OR MORE ARE YOU INTERESTED IN QUITTING?NOT READY TO QUIT WAITING FOR PRESCRIPTION FOR CHANTIX. PATIENT COUNSELED ON THE DANGERS OF TOBACCO USE AND URGED TO QUIT:11/28/2020 SMOKING CESSATION INFORMATION GIVEN11/28/2020 LATEX QUESTIONNAIRE LATEX ALLERGY : HAVE YOU EVER DEVELOPED ANY TYPE OF REACTION AFTER HANDLING LATEX PRODUCTS SUCH RUBBER GLOVES, CONDOMS, DIAPHRAGMS, BALLOONS, SOCKS, OR UNDERWEAR?YES - PLEASE INDICATE :RUBBER GLOVES, CONDOMS, UNDERWEAR, OTHER (DOCUMENT IN NOTES) BRAS LATEX ALLERGY : HAVE YOU EVER DEVELOPED ANY TYPE OF REACTION DURING OR AFTER DENTAL APPOINTMENT, VAGINAL/RECTAL EXAMINATION, SURGICAL PROCEDURE, OR ANY OTHER EXPOSURE?YES - PLEASE INDICATE :VAGINAL EXAM LATEX RISK : HAVE YOU EVER HAD ANY DIFFICULTY BREATHING OR HIVES AFTER EATING OR HANDLING ANY FRUITS, OR VEGETABLES; SUCH KIWI, BANANAS, STONE FRUITS, OR CHESTNUTSNO LATEX RISK : DO YOU HAVE A PREVIOUS PERSONAL HISTORY OF MORE THAN NINE SURGERIES, SPINA BIFIDA, OR REPEATED CATHERIZATIONS? YES - PLEASE INDICATE : > 9 SURGERIES LATEX RISK : ARE YOU FREQUENTLY EXPOSED TO LATEX PRODUCTS IN YOUR OCCUPATION?NO DATE ASKED : 12/14/2020 ALCOHOL USE: MODERATELY. LUNG CANCER SCREENING SMOKING STATUS:CURRENT SMOKER BMI CARE GOAL FOLLOW-UP ABOVE NORMAL BMI FOLLOW-UPDIETARY MANAGEMENT EDUCATION, GUIDANCE, AND COUNSELING, DIETARY NEEDS EDUCATION, EXERCISE PROMOTION: STRENGTH TRAINING ALCOHOL SCREENING DID YOU HAVE A DRINK CONTAINING ALCOHOL IN THE PAST YEAR?YES HOW OFTEN DID YOU HAVE SIX OR MORE DRINKS ON ONE OCCASION IN THE PAST YEAR?NEVER (0 POINTS) HOW MANY DRINKS DID YOU HAVE ON A TYPICAL DAY WHEN YOU WERE DRINKING IN THE PAST YEAR?1 OR 2 (0 POINTS) HOW OFTEN DID YOU HAVE A DRINK CONTAINING ALCOHOL IN THE PAST YEAR?TWO TO THREE TIMES PER WEEK (3 POINTS) POINTS3 INTERPRETATIONPOSITIVE RECREATIONAL DRUG USE DRUG USE?NO CAFFEINE CAFFEINE USE?YES 6-8 CUPS COFFEE DAILY, SODA ON OCCASIONS SEXUAL HX HAD SEX IN THE LAST 12 MONTHS (VAGINAL, ORAL, OR ANAL)?NO LMP:2010 HAVE YOU EVER HAD AN STD?NO HIV / HEP-C SCREENING HIV TEST OFFERED TO PATIENT:YES DATE OFFERED:03/13/2017 TEST ACCEPTED:NO HEP-C TEST OFFERED TO PATIENT:NO REASON:PATIENT DECLINED MORMONISM [id number] RASTAFARIAN LANGUAGE LANGUAGES SPOKEN:WELSH EDUCATION LEVEL OF EDUCATION:NOT FINISHED COLLEGE LEARNING BARRIERS / SPECIAL NEEDS CHANGE FROM LAST VISIT?NO BARRIERS TO LEARNING?NO HEARING IMPAIRED?YES VISION IMPAIRED?YES :CORRECTIVE LENSES COGNITIVELY IMPAIRED?NO READINESS TO LEARN?YES LEARNING PREFERENCES?NO LEARNING CAPABILITIES PRESENT?YES EMOTIONAL BARRIERS?NO SPECIAL DEVICES?NO NECKTIE STITCHER NEEDED?NO DOMESTIC VIOLENCE DO YOU FEEL SAFE IN YOUR ENVIRONMENT?YES OCCUPATION: UNEMPLOYED. DIET: REGULAR. EXERCISE: NO REGULAR EXERCISE. MARITAL STATUS: SINGLE. OTHERS AT HOME: NONE. - PFS REFERRAL NEEDED?NO CLERGY REFERRAL NEEDED?NO PUBLIC HEALTH REFERRAL NEEDED?NO HAS THE PATIENT BEEN EDUCATED REGARDING HIS/HER PLAN OF CARE?YES HAS THE PATIENT BEEN EDUCATED REGARDING PAIN, THE RISK FOR PAIN, THE IMPORTANCE OF EFFECTIVE PAIN MANAGEMENT, AND THE PAIN ASSESSMENT PROCESS?YES ADVANCE DIRECTIVE ADVANCE DIRECTIVE DISCUSSED WITH PATIENT:YES 07/27/2020 PT DOES NOT HAVE ANY ADVANCED DIREDCTIVES AND SHE DECLINES INFORMATION ON HCP AT THIS TIME. AD REVIEW OF SYSTEMS CONSTITUTIONAL: ANY RECENT FEVER NO . CHILLS NO . WEIGHT CHANGE OF UNKNOWN REASONS NO . GASTROENTEROLOGY: NEW UNEXPLAINABLE CHANGES IN BOWEL CONTROL NO . CONSTIPATION NO . GENITOURINARY: ANY NEW CHANGE IN BLADDER CONTROL? NO . NEUROLOGY: NEW ONSET DIZZINESS OR NEUROLOGICAL CHANGES NOT MENTIONED NO . NEW NUMBNESS OR PAIN PATTERNS NOT MENTIONED AND PERTINENT TO TODAY'S VISIT NO . CARDIOLOGY: NEW CHEST PRESSURE NO . PATIENT DENIES NO . RESPIRATORY: UNEXPLAINABLE COUGH NO . NEW SHORTNESS OF BREATH NO . VITAL SIGNS WT 177.0 LBS, HT 67", BMI 27.72 INDEX, BP 111/71 MM HG, HR 72 /MIN, RR 18 /MIN, TEMP 96.9 F, OXYGEN SAT % 99%, SAFE IN ENV? (Y/N) YES, NA INITIALS AW 1044, REVIEWED BY: RETA ARROYO MA. EXAMINATION GENERAL EXAMINATION: GENERALNO ACUTE DISTRESS, WELL NOURISHED AND HYDRATED. PSYCHAPPROPRIATE MOOD AND AFFECT . LUNGS:CLEAR TO AUSCULTATION BILATERALLY, NO WHEEZES, RHONCHI, RALES. HEART:NO MURMURS, REGULAR RATE AND RHYTHM. BACK:POINT TENDER ALONG LUMBAR SPINE, SURROUNDING SKIN SHOWS NO ERYTHEMA, ECCHYMOSIS, INCREASED WARMTH, AND/OR SKIN ERUPTIONS NOTED. PATIENT DOES ENDORSE INCREASED PAIN WITH FACET LOADING. . ASSESSMENTS OTHER CHRONIC PAIN - G89.29 (PRIMARY) TREATMENT OTHER CHRONIC PAIN PAIN PROCEDURE LOGDATE OF PROCEDURE1PROCEDURE:TRIGGER POINT INJECTION BILATERAL THORACICAMOUNT OF PRE SEDATEVALIUM 10MG,OXYCODONE 10MG, ZOFRAN 4MG, BENADRYL 25MGRESULT:UNSUCCESSFULL MEDICATION: OXYCODONE HCL TAB 10MG ORALLY (ORDERED FOR 12/22/2020) MEDICATION: VALIUM TAB 10MG ORALLY (DIAZEPAM) (ORDERED FOR 12/22/2020) NOTES: 40-YEAR-OLD FEMALE IN FOR POST REPRODUCTION FOLLOW-UP. GIVEN PRESENTING SYMPTOMS AND RESULTS PHYSICAL EXAMINATION RECOMMENDED BILATERAL THERAPEUTIC LUMBAR FACET BLOCK L4-L5 L5-S1 WITH POST PROCEDURAL FOLLOW-UP. PATIENT HAS EXPRESSED UNDERSTANDING OF AND WAS IN AGREEMENT WITH TREATMENT PLAN. GIVEN TIME TO ASK QUESTIONS AND EXPRESS CONCERNS. PROCEDURE CODES FA211 ESTABILISHED PATIENT [facility] FACILITY CHARGE DISPOSITION & COMMUNICATION FOLLOW UP POST PROCEDURE (REASON: BILATERAL THERAPEUTIC LUMBAR FACET BLOCK L4-L5, L5- S1) ELECTRONICALLY SIGNED BY JAKUB VILLEDA ON 12/15/2020 AT 09:09 AM EST DISCLAIMER : THIS IS A VISIT SUMMARY EXTRACTED FROM THE [employer] CHART. IT IS NOT A COPY OF THE [facility] [facility] PROGRESS NOTE. GELACIO
== END ==
LOC: M PAIN 10:30
PROVIDERS: ATTEND Family Medicine
DX: G89.29 Other chronic pain (principal); K21.9 Gastro-esophageal reflux disease without esophagitis; G43.909 Migraine, unspecified, not intractable, without status migrainosus; J45.909 Unspecified asthma, uncomplicated; G47.33 Obstructive sleep apnea (adult) (pediatric); D50.9 Iron deficiency anemia, unspecified; F17.210 Nicotine dependence, cigarettes, uncomplicated; Z86.14 Personal history of Methicillin resistant Staphylococcus aureus infection; Z86.59 Personal history of other mental and behavioral disorders; Z88.5 Allergy status to narcotic agent; Z88.8 Allergy status to other drugs, medicaments and biological substances; Z91.040 Latex allergy status; Z79.899 Other long term (current) drug therapy

== ENCOUNTER → 2020-12-15 | Outpatient (CLI) | payer OTHER | LOC: M LABSMTC 13:08 | PROVIDERS: ATTEND Anesthesiology | DX: Z11.52 Encounter for screening for COVID-19 (principal) ==

== ENCOUNTER → 2020-12-19 | Outpatient (CLI) | payer OTHER ==
[~2020-12-19] MED LIST changes: +BUPIVACAINE HCL 0.25% 30ML VIAL As Ordered ONE; +ISOVUE-M 300 61% 15ML VIAL As Ordered ONE; +LIDOCAINE 1% SDV 30ML VIAL As Ordered ONE
--- NOTE | 2020-12-19 10:32 | REP ---
INDICATION: LEFT DIAGNOSTIC LUMABR FACET BLOCK. COMPARISON: None. TECHNIQUE: Five views views. Thirty-five seconds of fluoroscopy time is reported. FINDINGS: A sequence of 5 last image hold fluoroscopically obtained spot radiograph(s) of the lumbar spine document(s) needle position(s) and contrast injection associated with injection procedure. IMPRESSION: Procedural imaging. <Electronically signed by Darío Carmona > 12/19/20 1025
--- NOTE | 2020-12-22 00:42 | ECWPNPC ---
PATIENT NAME: ADELA ALMONTE : 1980 GENDER: FEMALE VISIT DATE: 12/19/2020 DISCHARGE DATE: 12/19/20 0956 VISIT LOCKED DATE TIME: PHYSICIAN: HARRISON ZEPEDA MD PHYSICIAN PAGER NO: ACTIVE RESOURCE: HARRISON ZEPEDA MD REASON FOR APPOINTMENT 1. BILATERAL DIAGNOSTIC LUMBAR FACET BLOCK #2 L4-L5, L5-S1 HISTORY OF PRESENT ILLNESS GENERAL: -. FALL RISK SCREENING: SCREENING : ONE OR MORE FALLS, PATIENT STATES, "SMASHED MY KNEES, KNOCKED CROWN OUT OF MY MOUTH," BUT DID NOT SEEK MEDICAL ATTENTION.. PAIN SCREENING: PATIENT HAS A COMPLAINT OF ACUTE OR CHRONIC PAIN :YES LOCATION OF PAIN:UPPER BACK, MID BACK, LOW BACK, LEG(S), KNEES RADIATES DOWN THE BACK OF LEFT LAG TO THE BACK OF LEFT KNEE INTENSITY OF PAIN (SCALE OF 1 TO 10):7 WHAT DOES YOUR PAIN FEEL LIKE:ACHING, BURNING, CONTINOUS, SHARP, STABBING DURATION:CONTINOUS PAIN IS INCREASED BY:ACTIVITIES PAIN IS DECREASED BY:USE OF PAIN MEDICATIONS, OTHERS NOTHING HELPS PAIN RIGHT NOW NURSING NOTE: -. PAIN CENTER INTAKE QUESTIONS: DO YOU HAVE A HISTORY OF MRSA? :YES > 6 MONTHS, DO YOU TAKE A BLOOD THINNERS? :NO DO YOU HAVE ANY BLEEDING DISORDERS? :NO ANY NEW NUMBNESS OR WEAKNESS IN YOUR LEGS OR ARMS? :NO ANY PACEMAKER,DEFIBRILLATOR, OR DORSAL COLUMN STIMULATOR? :NO DO YOU HAVE ANY RASHES OR OPEN SORES? :NO ARE YOU ALLERGIC TO IV DYE? :NO ARE YOU DIABETIC? :NO ANY NEW PROBLEMS WITH YOUR MEDICATIONS? :NO HAVE YOU RECEIVED A VACCINE IN THE PAST 30 DAYS? :NO DO YOU PLAN TO RECEIVE A VACCINE IN THE NEXT 21 DAYS? :NO DO YOU TAKE ANY IMMUNOSUPPRESSIVE MEDICATIONS? :NO ANY HISTORY OF SEIZURES? :NO ANY HISTORY OF CARDIAC ISSUES OR EVENTS? :NO DO YOU HAVE ANY KIDNEY OR LIVER DISEASE? :NO DO YOU HAVE SLEEP APNEA? :YES DO YOU WEAR A CPAP?NO ANY RECENT HEAD INJURY? :NO DO YOU HAVE ANY NEW INFECTIONS? :NO IS THERE A CHANCE YOU COULD BE ? :NO ARE YOU BREAST FEEDING? :NO WHEN DID YOU LAST EAT? : 12/18/20201999 WHEN DID YOU LAST DRINK? : 12/19/2020 0630 WHAT DID YOU LAST DRINK? : WATER NAME OF PERSON DRIVING YOU HOME? : [employer] DO YOU HAVE ANY OTHER QUESTIONS OR CONCERNS? : NO CURRENT MEDICATIONS TAKING VYVANSE 70 MG CAPSULE (SCHEDULE II DRUG) TAKE ONE CAPSULE BY MOUTH EVERY MORNING - MAXIMUM DAILY DOSE ONE CAPSULE ORAL TAKING BUSPIRONE HCL 30 MG TABLET TAKE ONE TABLET BY MOUTH @6AM AND TAKE ONE TABLET BY MOUTH @8PM ORAL TAKING PRAZOSIN HCL 1 MG CAPSULE TAKE ONE CAPSULE BY MOUTH @8PM ORAL TAKING IMITREX 4 MG/0.5 ML 1 INJECTION SUBCUTANEOUS NEEDED TAKING FAMOTIDINE 40 MG TABLET TAKE ONE TABLET BY MOUTH @8PM ORAL TAKING AIMOVIG 70 MG/ML SOLUTION AUTO-INJECTOR USE ONCE PER MONTH SUBCUTANEOUS TAKING PROMETHAZINE HCL 25 MG TABLET TAKE ONE TABLET BY MOUTH @6AM AND TAKE ONE TABLET BY MOUTH @NOON AND TAKE ONE TABLET BY MOUTH @6PM AND TAKE ONE TABLET BY MOUTH @8PM ORAL TAKING MOVANTIK 25 MG TABLET TAKE ONE TABLET BY MOUTH @6AM ORAL TAKING CUVITRU 4 GM/20ML SOLUTION DIRECTED SUBCUTANEOUS TAKING LIDOCAINE HCL 3 % CREAM APPLY TO ABDOMEN 30 MINUTES PRIOR TO INFUSION EXTERNAL TAKING VRAYLAR 4.5 MG CAPSULE TAKE ONE CAPSULE BY MOUTH AT BEDTIME ORALLY ONCE A DAY TAKING BOTOX 100 UNIT SOLUTION RECONSTITUTED DIRECTED INTRAMUSCULAR TAKING ALBUTEROL SULFATE (2.5 MG/3ML) 0.083% NEBULIZATION SOLUTION 3 ML NEEDED INHALATION EVERY 8 HRS TAKING ESTRADIOL 0.025 MG/24HR PATCH WEEKLY APPLY ONE PATCH TOPICALLY ONCE PER WEEK TRANSDERMAL ONCE PER WEEK TAKING ACETAMINOPHEN 500 MG CAPSULE 1 CAPSULES NEEDED ORALLY EVERY 6 HRS PRN, NOTES: ONE WEEK AGO TAKING VENTOLIN HFA 90 MCG/ACT AEROSOL SOLUTION 1 PUFF NEEDED INHALATION EVERY 4 HRS TAKING NIFEDIPINE 20 MG CAPSULE TAKE ONE CAPSULE BY MOUTH @6AM ORAL DAILY TAKING AMBIEN 10 MG TABLET 1 TABLET AT BEDTIME NEEDED ORALLY ONCE A DAY TAKING ATARAX TABLET 50 MG ORAL FOUR TIMES DAILY NEEDED TAKING TIZANIDINE HCL 4 MG TABLET 1 TABLET NEEDED ORALLY THREE TIMES A DAY PRN, NOTES: 2 NIGHTS AGO TAKING PREGABALIN 200 MG CAPSULE 1 CAPSULE ORAL THREE TIMES DAILY, NOTES: 12/19/2020 0630 TAKING PANTOPRAZOLE SODIUM 40 MG TABLET DELAYED RELEASE TAKE ONE TABLET BY MOUTH @6AM ORAL ONCE A DAY TAKING DICYCLOMINE HCL 20 MG TABLET TAKE ONE TABLET BY MOUTH @6AM AND TAKE ONE TABLET @NOON AND TAKE ONE TABLET @8PM ( NEEDED FOR PAIN) ORAL TAKING TOPIRAMATE 50 MG TABLET TAKE ONE TABLET BY MOUTH TWICE DAILY BOTTLE ORAL TWICE DAILY TAKING FIBER LAXATIVE 625 MG TABLET 2 TABLETS NEEDED ORALLY THREE TIMES A DAY TAKING FERROUS SULFATE 324 (65 FE) MG TABLET DELAYED RELEASE 1 TABLET ORALLY ONCE A DAY TAKING AZELASTINE HCL 137 MCG/SPRAY SOLUTION 1 PUFF IN EACH NOSTRIL NASALLY TWICE A DAY TAKING CETIRIZINE HCL 10 MG TABLET TAKE ONE TABLET BY MOUTH @6AM ( NEEDED) ORAL ONCE DAILY TAKING FLUTICASONE PROPIONATE 50 MCG/ACT SUSPENSION 1 SPRAY IN EACH NOSTRIL NASALLY ONCE A DAY TAKING NICOTROL 10 MG INHALER 1 CARTRIDGE NEEDED INHALATION 16 TIME(S) A DAY TAKING FUROSEMIDE 20 MG TABLET TAKE ONE TABLET BY MOUTH @6AM NOT-TAKING NICORETTE 4 MG LOZENGE 1 LOZENGE NEEDED MOUTH/THROAT 20 TIME(S) A DAY PAST MEDICAL HISTORY COMMON VARIABLE IMMUNO DEFICIENCY DISEASE HISTORY OF KIDNEY STONES CHRONIC NECK/MID/LOW BACK PAIN - PAIN CENTER CHRONIC OPIOID USE, OPIOID-INDUCED CONSTIPATION PEPTIC ULCER DISEASE, GERD, S/P GASTRIC BYPASS - DR. MILLER BIPOLAR, ANXIETY, DEPRESSION, ADHD - DR. OTERO MIGRAINE HEADACHES - CAREY NEURO, GETS BOTOX INJECTIONS SURGICAL MENOPAUSE S/P ELIA & BSO (2009) FOR ENDOMETRIOSIS; PRESCRIBED ESTRADIOL BY CHRONIC RHINITIS/SINUSITIS, ALLERGIES RAYNAUD'S SYNDROME ASTHMA, JOSEPH ON BIPAP - DR. SAI TIDWELL HISTORY OF IRON-DEFICIENCY ANEMIA TOBACCO USE; SMOKES 15 CIG/DAY HISTORY OF ALCOHOL USE DISORDER; DRINKS 2 DAYS A WEEK HISTORY OF DRUG ABUSE IN REMISSION; USED IV METH AND IV ECSTASY IN 08/2019 HEART MURMUR - ECHO 10/2017 BORDERLINE LVH, MILD LAE, SUBTLE AV SCLEROSIS, AORTIC SCLEROSIS, MILD AR, MILD MR HTN - CANNY VENTRAL HERNIA ALLERGIES MORPHINE SULFATE: TACHYCARDIA DILAUDID: TACHYCARDIA REGLAN: HIVES LAMICTAL: WELTS LATEX GLOVES: UNKNOWN SOCIAL HISTORY GENERAL: TOBACCO USE ARE YOU A:CURRENT SMOKER ARE YOU INTERESTED IN QUITTING?NOT READY TO QUIT WAITING FOR PRESCRIPTION FOR CHANTIX. HOW MANY CIGARETTES A DAY DO YOU SMOKE?31 OR MORE HOW SOON AFTER YOU WAKE UP DO YOU SMOKE YOUR FIRST CIGARETTE?AFTER 60 MIN HOW OFTEN DO YOU SMOKE CIGARETTES?EVERY DAY PATIENT COUNSELED ON THE DANGERS OF TOBACCO USE AND URGED TO QUIT:11/28/2020 SMOKING CESSATION INFORMATION GIVEN12/18/2020 VAPORNO E-CIGARETTEYES OCCASIONALLY LATEX QUESTIONNAIRE LATEX ALLERGY : HAVE YOU EVER DEVELOPED ANY TYPE OF REACTION AFTER HANDLING LATEX PRODUCTS SUCH RUBBER GLOVES, CONDOMS, DIAPHRAGMS, BALLOONS, SOCKS, OR UNDERWEAR?YES LATEX ALLERGY : HAVE YOU EVER DEVELOPED ANY TYPE OF REACTION DURING OR AFTER DENTAL APPOINTMENT, VAGINAL/RECTAL EXAMINATION, SURGICAL PROCEDURE, OR ANY OTHER EXPOSURE?YES - PLEASE INDICATE :RUBBER GLOVES, CONDOMS, UNDERWEAR, OTHER (DOCUMENT IN NOTES) BRAS - PLEASE INDICATE :VAGINAL EXAM DATE ASKED : 12/14/2020 LATEX RISK : HAVE YOU EVER HAD ANY DIFFICULTY BREATHING OR HIVES AFTER EATING OR HANDLING ANY FRUITS, OR VEGETABLES; SUCH KIWI, BANANAS, STONE FRUITS, OR CHESTNUTSNO LATEX RISK : DO YOU HAVE A PREVIOUS PERSONAL HISTORY OF MORE THAN NINE SURGERIES, SPINA BIFIDA, OR REPEATED CATHERIZATIONS? YES - PLEASE INDICATE : > 9 SURGERIES LATEX RISK : ARE YOU FREQUENTLY EXPOSED TO LATEX PRODUCTS IN YOUR OCCUPATION?NO ALCOHOL USE: MODERATELY. LUNG CANCER SCREENING SMOKING STATUS:CURRENT SMOKER BMI CARE GOAL FOLLOW-UP ABOVE NORMAL BMI FOLLOW-UPDIETARY MANAGEMENT EDUCATION, GUIDANCE, AND COUNSELING, DIETARY NEEDS EDUCATION, EXERCISE PROMOTION: STRENGTH TRAINING ALCOHOL SCREENING DID YOU HAVE A DRINK CONTAINING ALCOHOL IN THE PAST YEAR?YES HOW OFTEN DID YOU HAVE SIX OR MORE DRINKS ON ONE OCCASION IN THE PAST YEAR?NEVER (0 POINTS) HOW MANY DRINKS DID YOU HAVE ON A TYPICAL DAY WHEN YOU WERE DRINKING IN THE PAST YEAR?1 OR 2 (0 POINTS) HOW OFTEN DID YOU HAVE A DRINK CONTAINING ALCOHOL IN THE PAST YEAR?TWO TO THREE TIMES PER WEEK (3 POINTS) POINTS3 INTERPRETATIONPOSITIVE RECREATIONAL DRUG USE DRUG USE?NO CAFFEINE CAFFEINE USE?YES 6-8 CUPS COFFEE DAILY, SODA ON OCCASIONS SEXUAL HX HAD SEX IN THE LAST 12 MONTHS (VAGINAL, ORAL, OR ANAL)?NO LMP:2009 HAVE YOU EVER HAD AN STD?NO HIV / HEP-C SCREENING HIV TEST OFFERED TO PATIENT:YES DATE OFFERED:03/13/2017 TEST ACCEPTED:NO HEP-C TEST OFFERED TO PATIENT:NO REASON:PATIENT DECLINED SABIANIST [id number] RASTAFARIAN LANGUAGE LANGUAGES SPOKEN:GERMAN EDUCATION LEVEL OF EDUCATION:NOT FINISHED COLLEGE LEARNING BARRIERS / SPECIAL NEEDS CHANGE FROM LAST VISIT?NO BARRIERS TO LEARNING?NO HEARING IMPAIRED?YES VISION IMPAIRED?YES COGNITIVELY IMPAIRED?NO :CORRECTIVE LENSES READINESS TO LEARN?YES LEARNING PREFERENCES?NO LEARNING CAPABILITIES PRESENT?YES EMOTIONAL BARRIERS?NO SPECIAL DEVICES?NO ADMITTING OFFICE ESCORT NEEDED?NO DOMESTIC VIOLENCE DO YOU FEEL SAFE IN YOUR ENVIRONMENT?YES OCCUPATION: UNEMPLOYED. DIET: REGULAR. EXERCISE: NO REGULAR EXERCISE. MARITAL STATUS: SINGLE. OTHERS AT HOME: NONE. - PFS REFERRAL NEEDED?NO CLERGY REFERRAL NEEDED?NO PUBLIC HEALTH REFERRAL NEEDED?NO HAS THE PATIENT BEEN EDUCATED REGARDING HIS/HER PLAN OF CARE?YES HAS THE PATIENT BEEN EDUCATED REGARDING PAIN, THE RISK FOR PAIN, THE IMPORTANCE OF EFFECTIVE PAIN MANAGEMENT, AND THE PAIN ASSESSMENT PROCESS?YES ADVANCE DIRECTIVE ADVANCE DIRECTIVE DISCUSSED WITH PATIENT:YES 07/27/2020 PT DOES NOT HAVE ANY ADVANCED DIREDCTIVES AND SHE DECLINES INFORMATION ON HCP AT THIS TIME. AD VITAL SIGNS WT 177.0 LBS, HT 67", BMI 27.72 INDEX, BP 127/69 MM HG, HR 105 /MIN, RR 18 /MIN, TEMP 98.4 F, OXYGEN SAT % 96%, SAFE IN ENV? (Y/N) YES, NA INITIALS AW 0820, REVIEWED BY: Darya PARIS RN. EXAMINATION GENERAL EXAMINATION: THE PATIENT IS ALERT, ORIENTED TIMES THREE AND COOPERATIVE. LUNGS ARE CLEAR TO AUSCULTATION. HEART SHOWS REGULAR RHYTHM, NO MURMURS AND NO GALLOPS. ASSESSMENTS SPONDYLOSIS WITHOUT MYELOPATHY OR RADICULOPATHY, LUMBAR REGION - M47.816 (PRIMARY) SPONDYLOSIS WITHOUT MYELOPATHY OR RADICULOPATHY, LUMBOSACRAL REGION - M47.817 TREATMENT SPONDYLOSIS WITHOUT MYELOPATHY OR RADICULOPATHY, LUMBAR REGION SMC FACET BLOCK (PAIN) COMPLETION OF PROCEDURAL VISIT WHEN MEETS CRITERIAMARTA PROCTOR 12/19/2020 9:55:40 AM > CRITERIA MET OTHERS NOTES: 12/18/20 1705 PAT COMPLETED. Albert GUNTER RN BSN. PROCEDURES PAIN NURSING RECORD PROCEDURE IN ROOM 0920, PHYSICIAN IN ROOM 0931, START 0934, FINISH 0943, PHYSICIAN OUT OF ROOM 0946, OUT OF ROOM 0949, ECG NORMAL SINUS, PATIENT SHIELDED YES, SAFETY STRAP YES, PREP CHLOROPREP BY Draya PARIS RN, DRESSING TEGADERM BY DR ZEPEDA LOC: MARTA PROCTOR 12/19/2020 9:30:30 AM > , 1. ALERT, ORIENTED RESP: MARTA PROCTOR 12/19/2020 9:30:33 AM > , 1. REGULAR, NO DYSPNEA COLOR: MARTA PROCTOR 12/19/2020 9:30:36 AM > , 1. PINK SKIN: MARTA PROCTOR 12/19/2020 9:30:39 AM > , 1. WARM, DRY POSITION: MARTA PROCTOR 12/19/2020 9:30:42 AM > , 1. PRONE VITALS: MARTA PROCTOR 12/19/2020 9:30:46 AM > 119/69-63-16-99% , MARTA PROCTOR 12/19/2020 9:44:57 AM > 126/71-66-16-99% , MARTA PROCTOR 12/19/2020 9:56:03 AM > 121/84-87-18-94% NOTES Tracy PARIS RN COMPLETION OF PROCEDURE APPOINTMENT: POST PAIN 2 BILATRAL LOW BACK, DRESSING SITE DRY AND INTACT BILATERAL LOWER BACK, IV N/A, GAIT STEADY, TEACHING COMPLETED, PATIENT ACKNOWLEDGES UNDERSTANDING YES PATIENT VERBALIZES UNDERSTANDING OF POST PROCEDURE INSTRUCTIONS REVIEWED, PROCEDURE APPOINTMENT COMPLETED AT 0957 BY: Tracy PARIS RN PN LUMBAR FACET BLOCK DIAGNOSTIC PRE PROCEDURE DIAGNOSIS LUMBAR SPONDYLOSIS, LUMBOSACRAL SPONDYLOSIS POST PROCEDURE DIAGNOSIS LUMBAR SPONDYLOSIS, LUMBOSACRAL SPONDYLOSIS PROCEDURE BILATERAL L4-L5 AND BILATERAL L5-S1 FACET BLOCK DIAGNOSTIC NUMBER [address] HARRISON ZEPEDA FOLDER STITCHER OPERATOR NONE ANESTHESIA LOCAL PRE PROCEDURE NOTE THE PATIENT WITH HISTORY OF CHRONIC LOW BACK PAIN. I EVALUATED THE PATIENT AND REVIEWED THE CHART. I WENT OVER THE RISKS, ALTERNATIVES, AND BENEFITS ASSOCIATED WITH THIS PROCEDURE. THE PATIENT WOULD LIKE TO PROCEED AND GAVE CONSENT TO PERFORM THE PROCEDURE. AGREED WITH THE PATIENT, WE ARE DOING THIS PROCEDURE TO DETERMINE IF THE PATIENT IS A CANDIDATE FOR A RADIOFREQUENCY ABLATION OF THE FACETS JOINTS. THE PATIENT DENIES UNEXPLAINABLE WEIGHT LOSS, FEVER, CHILLS, OR NEW CHANGES IN URINARY OR BOWEL CONTROL. THE PATIENT IS COVID-19 NEGATIVE DESCRIPTION OF PROCEDURE THE PATIENT WAS BROUGHT TO THE PROCEDURE ROOM AND PLACED IN THE PRONE POSITION. THE LUMBOSACRAL AREA WAS CLEANED WITH CHLORAPREP SOLUTION AND DRAPED ASEPTICALLY. THE PROCEDURE WAS DONE UNDER STERILE CONDITIONS. A TIMEOUT WAS PERFORMED WHERE THE CONSENTED SITE WAS VERIFIED WITH EVERYONE IN THE ROOM. UNDER FLUOROSCOPIC GUIDANCE, TARGETS WERE SELECTED AT THE INTERSECTION OF THE RIGHT AND LEFT TRANSVERSE PROCESS OF L4, L5 AND ALA OF S1 WITH ITS RESPECTIVE SUPERIOR ARTICULAR PROCESS WITH A TARGET OF THE MEDIAN BRANCHES OF L3, L4 AND THE DORSAL RAMI OF L5. I CONFIRMED AGAIN THE SITE OF TARGET. LIDOCAINE WAS USED TO NUMB THE SKIN AND THE SUBCUTANEOUS TISSUE BELOW IT. SPINAL NEEDLE, 22-GAUGE, WAS ADVANCED UNDER FLUOROSCOPIC GUIDANCE AND FOLLOWING PATIENT FEEDBACK UNTIL THE TARGETS WERE REACHED. POSITION OF THE NEEDLES WAS VERIFIED WITH AP AND LATERAL VIEWS. AFTER PROPER POSITION OF THE NEEDLES WAS ACHIEVED, ISOVUE-M DYE 30%, 0.1 ML, WAS INJECTED AT EACH SITE SHOWING ADEQUATE SPREAD OF THE DYE. THEN, A SOLUTION OF 0.4 ML OF BUPIVACAINE 0.25% WAS INJECTED AT EACH SITE. THE MEDICATIONS WERE VERIFIED WITH THE NURSE. THERE WAS NO EVIDENCE OF BLOOD, PARESTHESIA OR CEREBROSPINAL FLUID DURING THE PROCEDURE. THE PATIENT WAS SENT TO THE RECOVERY ROOM. THE PATIENT WAS MOVING THE EXTREMITIES AND DOING WELL. THERE WERE NO COMPLICATIONS DURING THE PROCEDURE. ESTIMATED BLOOD LOSS WAS LESS THAN 5 ML. FLUOROSCOPY TIME WAS 35 SECONDS POST PROCEDURE NOTE THE PATIENT WILL DOCUMENT THE PAIN LEVEL AND RESPONSE TO THIS PROCEDURE PER PAIN DIARY. THE PATIENT WILL BE SEEN IN A FOLLOW UP IN THE NEXT FEW WEEKS. FURTHER DETERMINATION FOR THE PATIENT'S CASE WILL BE DONE AT THE NEXT VISIT. INSTRUCTIONS WERE GIVEN, QUESTIONS WERE ANSWERED, AND THE PATIENT EXPRESSED UNDERSTANDING AND AGREED WITH THE PLAN. I, SANJUANA SERNA, DOCUMENTED THE ABOVE INFORMATION ACTING A SCRIBE FOR DR. ZEPEDA. I HAVE REVIEWED THE ABOVE DOCUMENT, WRITTEN BY SANJUANA SERNA, GEAR HOBBER, AND I VERIFY THAT IT IS ACCURATE PROCEDURE CODES 91332 INJ PARAVERT F JNT L/S 1 LEV, MODIFIERS: 50 [id number] INJ PARAVERT F JNT L/S 2 LEV, MODIFIERS: 50 DISPOSITION & COMMUNICATION FOLLOW UP FOLLOW UP WITH BLOOD SPLATTER ANALYST (REASON: POST BILATERAL DIAGNOSTIC LUMBAR FACET BLOCK #2 L4-L5, L5-S1) ELECTRONICALLY SIGNED BY HARRISON ZEPEDA MD, MD ON 12/21/2020 AT 01:55 PM EDT DISCLAIMER : THIS IS A VISIT SUMMARY EXTRACTED FROM THE [employer] CHART. IT IS NOT A COPY OF THE [facility] PROGRESS NOTE. [facility]
== END ==
LOC: M PAIN 08:30
PROVIDERS: ATTEND Anesthesiology
DX: M47.816 Spondylosis without myelopathy or radiculopathy, lumbar region (principal); M47.817 Spondylosis without myelopathy or radiculopathy, lumbosacral region; G47.33 Obstructive sleep apnea (adult) (pediatric); G43.909 Migraine, unspecified, not intractable, without status migrainosus; J45.909 Unspecified asthma, uncomplicated; D50.9 Iron deficiency anemia, unspecified; K21.9 Gastro-esophageal reflux disease without esophagitis; F17.210 Nicotine dependence, cigarettes, uncomplicated; Z98.84 Bariatric surgery status; Z86.59 Personal history of other mental and behavioral disorders; Z88.5 Allergy status to narcotic agent; Z88.8 Allergy status to other drugs, medicaments and biological substances; Z91.040 Latex allergy status; Z79.899 Other long term (current) drug therapy
CPT/HCPCS: 64493; 64494; Q9967

== ENCOUNTER → 2020-12-22 | Outpatient (CLI) | payer OTHER ==
[~2020-12-22] MED LIST changes: -BUPIVACAINE HCL 0.25% 30ML VIAL As Ordered ONE; -ISOVUE-M 300 61% 15ML VIAL As Ordered ONE; -LIDOCAINE 1% SDV 30ML VIAL As Ordered ONE
[2020-12-22 15:32] LABS: HEMATOCRIT 43.1 % (36.0-47.0); HEMOGLOBIN 13.9 g/dl (12.0-15.5); MEAN CORPUSCULAR HEMOGLOBIN 30.3 pg (27.0-33.0); MEAN CORPUSCULAR HGB CONC 32.3 g/dl (32.0-36.5); MEAN CORPUSCULAR VOLUME 93.9 fl (80.0-96.0); PLATELET COUNT, AUTOMATED 152 10^3/uL (150-450); RED BLOOD COUNT 4.59 10^6/uL (4.00-5.40)
[2020-12-22 16:09] LABS: ALBUMIN 3.6 GM/DL (3.2-5.2); ALT/SGPT 75 U/L (12-78); BILIRUBIN,DIRECT 0.1 MG/DL (0.0-0.2); BILIRUBIN,TOTAL 0.3 MG/DL (0.2-1.0); BLOOD UREA NITROGEN 15 MG/DL (7-18); CALCIUM LEVEL 9.5 MG/DL (8.5-10.1); CARBON DIOXIDE LEVEL 28 MEQ/L (21-32); CHLORIDE LEVEL 109 MEQ/L (98-107); CREATININE FOR GFR 0.83 MG/DL (0.55-1.30); FERRITIN 28 NG/ML (8-252); GLOMERULAR FILTRATION RATE > 60.0 (>58); GLUCOSE, FASTING 98 MG/DL (70-100); IRON (FE) 91 UG/DL (50-170); POTASSIUM SERUM 4.1 MEQ/L (3.5-5.1); SODIUM LEVEL 141 MEQ/L (136-145); TOTAL IRON BINDING CAPACITY 455 UG/DL (250-450); TOTAL PROTEIN 7.2 GM/DL (6.4-8.2)
== END ==
LOC: M LAB 14:39
PROVIDERS: ATTEND Nurse Practitioner Family
DX: R10.13 Epigastric pain (principal); R68.81 Early satiety; R63.4 Abnormal weight loss; R10.12 Left upper quadrant pain

== ENCOUNTER → 2021-01-03 | Outpatient (CLI) | payer OTHER ==
--- NOTE | 2021-01-05 03:05 | ECWPNPC ---
PATIENT NAME: ADELA ALMONTE : 1980 GENDER: FEMALE VISIT DATE: 01/03/2021 DISCHARGE DATE: 01/03/21 1142 VISIT LOCKED DATE TIME: PHYSICIAN: RAVEN CORDON PHYSICIAN PAGER NO: ACTIVE RESOURCE: RAVEN CORDON REASON FOR APPOINTMENT 1. POST BILATERAL THERAPEUTIC LUMBAR FACET BLOCK L4-L5, L5- S1 HISTORY OF PRESENT ILLNESS GENERAL: - 40-YEAR-OLD FEMALE IN FOR POST BILATERAL THERAPEUTIC LUMBAR FACET BLOCK FOLLOW-UP. PATIENT FEELS THE PROCEDURE WAS SUCCESSFUL OVERALL RATING HER PAIN PREPROCEDURE AT A 7-8 OUT OF 10 AND POSTPROCEDURE AT A 0-3 OUT OF 10. SHE FURTHER STATES THE PROCEDURE CONTINUES TO HELP HER TODAY RATING HER PAIN CURRENTLY AT A 2 OUT OF 10 AND DESCRIBING IT INTERMITTENT AND STABBING. FALL RISK SCREENING: SCREENING ONE FALL REPORTED IN THE LAST YEAR WITH INJURY. PATIENT DID NOT SEEK IMMEDIATE MEDICAL TREATMENT.. PAIN SCREENING: PATIENT HAS A COMPLAINT OF ACUTE OR CHRONIC PAIN :YES LOCATION OF PAIN:MID BACK, LOW BACK INTENSITY OF PAIN (SCALE OF 1 TO 10):2 WHAT DOES YOUR PAIN FEEL LIKE:INTERMITTENT, STABBING, THROBBING DURATION:STEADY, INTERMITTENT, AWAKENS FROM SLEEP PAIN IS INCREASED BY:ACTIVITIES, PROLONGED STANDING PAIN IS DECREASED BY:USE OF PAIN MEDICATIONS, SITTING, OTHERS LUMBAR FACET BLOCK #2 HELPED THE PAIN TREMENDOUSLY. NURSING NOTE: -. PAIN CENTER INTAKE QUESTIONS: DO YOU HAVE A HISTORY OF MRSA? :YES DO YOU TAKE A BLOOD THINNERS? :NO DO YOU HAVE ANY BLEEDING DISORDERS? :YES ANEMIA ANY NEW NUMBNESS OR WEAKNESS IN YOUR LEGS OR ARMS? :NO ANY PACEMAKER,DEFIBRILLATOR, OR DORSAL COLUMN STIMULATOR? :NO DO YOU HAVE ANY RASHES OR OPEN SORES? :NO ARE YOU ALLERGIC TO IV DYE? :NO ARE YOU DIABETIC? :NO ANY NEW PROBLEMS WITH YOUR MEDICATIONS? :NO HAVE YOU RECEIVED A VACCINE IN THE PAST 30 DAYS? :NO DO YOU PLAN TO RECEIVE A VACCINE IN THE NEXT 21 DAYS? :NO DO YOU NEED ANY PRESCRIPTION? :YES TIZANIDINE DO YOU TAKE ANY IMMUNOSUPPRESSIVE MEDICATIONS? :NO DO YOU HAVE ANY KIDNEY OR LIVER DISEASE? :NO PATIENT CONCERNED ABOUT LIVER BLOODWORK IS THERE A CHANCE YOU COULD BE ? :NO ARE YOU BREAST FEEDING? :NO CURRENT MEDICATIONS TAKING VYVANSE 70 MG CAPSULE (SCHEDULE II DRUG) TAKE ONE CAPSULE BY MOUTH EVERY MORNING - MAXIMUM DAILY DOSE ONE CAPSULE ORAL TAKING BUSPIRONE HCL 30 MG TABLET TAKE ONE TABLET BY MOUTH @6AM AND TAKE ONE TABLET BY MOUTH @8PM ORAL TAKING PRAZOSIN HCL 1 MG CAPSULE TAKE ONE CAPSULE BY MOUTH @8PM ORAL TAKING IMITREX 4 MG/0.5 ML 1 INJECTION SUBCUTANEOUS NEEDED TAKING FAMOTIDINE 40 MG TABLET TAKE ONE TABLET BY MOUTH @8PM ORAL TAKING AIMOVIG 70 MG/ML SOLUTION AUTO-INJECTOR USE ONCE PER MONTH SUBCUTANEOUS TAKING PROMETHAZINE HCL 25 MG TABLET TAKE ONE TABLET BY MOUTH @6AM AND TAKE ONE TABLET BY MOUTH @NOON AND TAKE ONE TABLET BY MOUTH @6PM AND TAKE ONE TABLET BY MOUTH @8PM ORAL TAKING MOVANTIK 25 MG TABLET TAKE ONE TABLET BY MOUTH @6AM ORAL TAKING CUVITRU 4 GM/20ML SOLUTION DIRECTED SUBCUTANEOUS TAKING LIDOCAINE HCL 3 % CREAM APPLY TO ABDOMEN 30 MINUTES PRIOR TO INFUSION EXTERNAL TAKING VRAYLAR 4.5 MG CAPSULE TAKE ONE CAPSULE BY MOUTH AT BEDTIME ORALLY ONCE A DAY TAKING BOTOX 100 UNIT SOLUTION RECONSTITUTED DIRECTED INTRAMUSCULAR TAKING ALBUTEROL SULFATE (2.5 MG/3ML) 0.083% NEBULIZATION SOLUTION 3 ML NEEDED INHALATION EVERY 8 HRS TAKING ESTRADIOL 0.025 MG/24HR PATCH WEEKLY APPLY ONE PATCH TOPICALLY ONCE PER WEEK TRANSDERMAL ONCE PER WEEK TAKING ACETAMINOPHEN 500 MG CAPSULE 1 CAPSULES NEEDED ORALLY EVERY 6 HRS PRN, NOTES: ONE WEEK AGO TAKING VENTOLIN HFA 90 MCG/ACT AEROSOL SOLUTION 1 PUFF NEEDED INHALATION EVERY 4 HRS TAKING NIFEDIPINE 20 MG CAPSULE TAKE ONE CAPSULE BY MOUTH @6AM ORAL DAILY TAKING AMBIEN 10 MG TABLET 1 TABLET AT BEDTIME NEEDED ORALLY ONCE A DAY TAKING ATARAX TABLET 50 MG ORAL FOUR TIMES DAILY NEEDED TAKING TIZANIDINE HCL 4 MG TABLET 1 TABLET NEEDED ORALLY THREE TIMES A DAY PRN, NOTES: 2 NIGHTS AGO TAKING PREGABALIN 200 MG CAPSULE 1 CAPSULE ORAL THREE TIMES DAILY, NOTES: 12/19/2020 0630 TAKING PANTOPRAZOLE SODIUM 40 MG TABLET DELAYED RELEASE TAKE ONE TABLET BY MOUTH @6AM ORAL ONCE A DAY TAKING DICYCLOMINE HCL 20 MG TABLET TAKE ONE TABLET BY MOUTH @6AM AND TAKE ONE TABLET @NOON AND TAKE ONE TABLET @8PM ( NEEDED FOR PAIN) ORAL TAKING TOPIRAMATE 50 MG TABLET TAKE ONE TABLET BY MOUTH TWICE DAILY BOTTLE ORAL TWICE DAILY TAKING FIBER LAXATIVE 625 MG TABLET 2 TABLETS NEEDED ORALLY THREE TIMES A DAY TAKING FERROUS SULFATE 324 (65 FE) MG TABLET DELAYED RELEASE 1 TABLET ORALLY ONCE A DAY TAKING AZELASTINE HCL 137 MCG/SPRAY SOLUTION 1 PUFF IN EACH NOSTRIL NASALLY TWICE A DAY TAKING CETIRIZINE HCL 10 MG TABLET TAKE ONE TABLET BY MOUTH @6AM ( NEEDED) ORAL ONCE DAILY TAKING FLUTICASONE PROPIONATE 50 MCG/ACT SUSPENSION 1 SPRAY IN EACH NOSTRIL NASALLY ONCE A DAY TAKING NICOTROL 10 MG INHALER 1 CARTRIDGE NEEDED INHALATION 16 TIME(S) A DAY TAKING FUROSEMIDE 20 MG TABLET TAKE ONE TABLET BY MOUTH @6AM TAKING KLONOPIN 0.5 MG TABLET 1 TABLET AT BEDTIME ORALLY ONCE A DAY UNKNOWN NICORETTE 4 MG LOZENGE 1 LOZENGE NEEDED MOUTH/THROAT 20 TIME(S) A DAY MEDICATION LIST REVIEWED AND RECONCILED WITH THE PATIENT PAST MEDICAL HISTORY COMMON VARIABLE IMMUNO DEFICIENCY DISEASE HISTORY OF KIDNEY STONES CHRONIC NECK/MID/LOW BACK PAIN - PAIN CENTER CHRONIC OPIOID USE, OPIOID-INDUCED CONSTIPATION PEPTIC ULCER DISEASE, GERD, S/P GASTRIC BYPASS - DR. MILLER BIPOLAR, ANXIETY, DEPRESSION, ADHD - DR. OTERO MIGRAINE HEADACHES - CAREY NEURO, GETS BOTOX INJECTIONS SURGICAL MENOPAUSE S/P ELIA & BSO (2009) FOR ENDOMETRIOSIS; PRESCRIBED ESTRADIOL BY CHRONIC RHINITIS/SINUSITIS, ALLERGIES RAYNAUD'S SYNDROME ASTHMA, JOSEPH ON BIPAP - DR. SAI TIDWELL HISTORY OF IRON-DEFICIENCY ANEMIA TOBACCO USE; SMOKES 15 CIG/DAY HISTORY OF ALCOHOL USE DISORDER; DRINKS 2 DAYS A WEEK HISTORY OF DRUG ABUSE IN REMISSION; USED IV METH AND IV ECSTASY IN 08/2019 HEART MURMUR - ECHO 10/2017 BORDERLINE LVH, MILD LAE, SUBTLE AV SCLEROSIS, AORTIC SCLEROSIS, MILD AR, MILD MR HTN - CANNY VENTRAL HERNIA ALLERGIES MORPHINE SULFATE: TACHYCARDIA DILAUDID: TACHYCARDIA REGLAN: HIVES LAMICTAL: WELTS LATEX GLOVES: UNKNOWN SOCIAL HISTORY GENERAL: TOBACCO USE ARE YOU A:CURRENT SMOKER HOW OFTEN DO YOU SMOKE CIGARETTES?EVERY DAY HOW SOON AFTER YOU WAKE UP DO YOU SMOKE YOUR FIRST CIGARETTE?AFTER 60 MIN HOW MANY CIGARETTES A DAY DO YOU SMOKE?31 OR MORE ARE YOU INTERESTED IN QUITTING?NOT READY TO QUIT WAITING FOR PRESCRIPTION FOR CHANTIX. PATIENT COUNSELED ON THE DANGERS OF TOBACCO USE AND URGED TO QUIT:11/28/2020 VAPORNO E-CIGARETTEYES OCCASIONALLY SMOKING CESSATION INFORMATION GIVEN12/18/2020 LATEX QUESTIONNAIRE LATEX ALLERGY : HAVE YOU EVER DEVELOPED ANY TYPE OF REACTION AFTER HANDLING LATEX PRODUCTS SUCH RUBBER GLOVES, CONDOMS, DIAPHRAGMS, BALLOONS, SOCKS, OR UNDERWEAR?YES - PLEASE INDICATE :RUBBER GLOVES, CONDOMS, UNDERWEAR, OTHER (DOCUMENT IN NOTES) BRAS LATEX ALLERGY : HAVE YOU EVER DEVELOPED ANY TYPE OF REACTION DURING OR AFTER DENTAL APPOINTMENT, VAGINAL/RECTAL EXAMINATION, SURGICAL PROCEDURE, OR ANY OTHER EXPOSURE?YES - PLEASE INDICATE :VAGINAL EXAM LATEX RISK : HAVE YOU EVER HAD ANY DIFFICULTY BREATHING OR HIVES AFTER EATING OR HANDLING ANY FRUITS, OR VEGETABLES; SUCH KIWI, BANANAS, STONE FRUITS, OR CHESTNUTSNO LATEX RISK : DO YOU HAVE A PREVIOUS PERSONAL HISTORY OF MORE THAN NINE SURGERIES, SPINA BIFIDA, OR REPEATED CATHERIZATIONS? YES - PLEASE INDICATE : > 9 SURGERIES LATEX RISK : ARE YOU FREQUENTLY EXPOSED TO LATEX PRODUCTS IN YOUR OCCUPATION?NO DATE ASKED : 01/03/2021 ALCOHOL USE: MODERATELY. LUNG CANCER SCREENING SMOKING STATUS:CURRENT SMOKER BMI CARE GOAL FOLLOW-UP ABOVE NORMAL BMI FOLLOW-UPDIETARY MANAGEMENT EDUCATION, GUIDANCE, AND COUNSELING, DIETARY NEEDS EDUCATION, EXERCISE PROMOTION: STRENGTH TRAINING ALCOHOL SCREENING DID YOU HAVE A DRINK CONTAINING ALCOHOL IN THE PAST YEAR?YES HOW OFTEN DID YOU HAVE SIX OR MORE DRINKS ON ONE OCCASION IN THE PAST YEAR?NEVER (0 POINTS) HOW MANY DRINKS DID YOU HAVE ON A TYPICAL DAY WHEN YOU WERE DRINKING IN THE PAST YEAR?1 OR 2 (0 POINTS) HOW OFTEN DID YOU HAVE A DRINK CONTAINING ALCOHOL IN THE PAST YEAR?TWO TO THREE TIMES PER WEEK (3 POINTS) POINTS3 INTERPRETATIONPOSITIVE RECREATIONAL DRUG USE DRUG USE?NO CAFFEINE CAFFEINE USE?YES 6-8 CUPS COFFEE DAILY, SODA ON OCCASIONS SEXUAL HX HAD SEX IN THE LAST 12 MONTHS (VAGINAL, ORAL, OR ANAL)?NO LMP:2009 HAVE YOU EVER HAD AN STD?NO HIV / HEP-C SCREENING HIV TEST OFFERED TO PATIENT:YES DATE OFFERED:03/13/2017 TEST ACCEPTED:NO HEP-C TEST OFFERED TO PATIENT:NO REASON:PATIENT DECLINED HINDU [id number] QUAKER LANGUAGE LANGUAGES SPOKEN:SURINAMESE EDUCATION LEVEL OF EDUCATION:NOT FINISHED COLLEGE LEARNING BARRIERS / SPECIAL NEEDS CHANGE FROM LAST VISIT?NO BARRIERS TO LEARNING?NO HEARING IMPAIRED?YES VISION IMPAIRED?YES :CORRECTIVE LENSES COGNITIVELY IMPAIRED?NO READINESS TO LEARN?YES LEARNING PREFERENCES?NO LEARNING CAPABILITIES PRESENT?YES EMOTIONAL BARRIERS?NO SPECIAL DEVICES?NO GRAIN SCOOPER NEEDED?NO DOMESTIC VIOLENCE DO YOU FEEL SAFE IN YOUR ENVIRONMENT?YES OCCUPATION: UNEMPLOYED. DIET: REGULAR. EXERCISE: NO REGULAR EXERCISE. MARITAL STATUS: SINGLE. OTHERS AT HOME: NONE. - PFS REFERRAL NEEDED?NO CLERGY REFERRAL NEEDED?NO PUBLIC HEALTH REFERRAL NEEDED?NO HAS THE PATIENT BEEN EDUCATED REGARDING HIS/HER PLAN OF CARE?YES HAS THE PATIENT BEEN EDUCATED REGARDING PAIN, THE RISK FOR PAIN, THE IMPORTANCE OF EFFECTIVE PAIN MANAGEMENT, AND THE PAIN ASSESSMENT PROCESS?YES ADVANCE DIRECTIVE ADVANCE DIRECTIVE DISCUSSED WITH PATIENT:YES 07/27/2020 PT DOES NOT HAVE ANY ADVANCED DIREDCTIVES AND SHE DECLINES INFORMATION ON HCP AT THIS TIME. AD REVIEW OF SYSTEMS CONSTITUTIONAL: ANY RECENT FEVER NO . CHILLS NO . WEIGHT CHANGE OF UNKNOWN REASONS NO . GASTROENTEROLOGY: NEW UNEXPLAINABLE CHANGES IN BOWEL CONTROL NO . CONSTIPATION NO . GENITOURINARY: ANY NEW CHANGE IN BLADDER CONTROL? NO . NEUROLOGY: NEW ONSET DIZZINESS OR NEUROLOGICAL CHANGES NOT MENTIONED NO . NEW NUMBNESS OR PAIN PATTERNS NOT MENTIONED AND PERTINENT TO TODAY'S VISIT NO . CARDIOLOGY: NEW CHEST PRESSURE NO . PATIENT DENIES NO . RESPIRATORY: UNEXPLAINABLE COUGH NO . NEW SHORTNESS OF BREATH NO . VITAL SIGNS WT 177.0 LBS, HT 67", BMI 27.72 INDEX, BP 119/75 MM HG, HR 91 /MIN, RR 18 /MIN, TEMP 97.4 F, OXYGEN SAT % 99%, SAFE IN ENV? (Y/N) YES, NA INITIALS AW 1102, REVIEWED BY: RETA ARROYO MA. EXAMINATION GENERAL EXAMINATION: GENERALNO ACUTE DISTRESS, WELL NOURISHED AND HYDRATED. PSYCHAPPROPRIATE MOOD AND AFFECT . LUNGS:CLEAR TO AUSCULTATION BILATERALLY, NO WHEEZES, RHONCHI, RALES. HEART:NO MURMURS, REGULAR RATE AND RHYTHM. ASSESSMENTS OTHER CHRONIC PAIN - G89.29 (PRIMARY) TREATMENT OTHER CHRONIC PAIN PAIN PROCEDURE LOGDATE OF PROCEDURE12/20/19PROCEDURE:BILATERAL DIAGNOSTIC LUMBAR FACET BLOCK #2 L4-L5, L5-[id number] OF PRE SEDATENONERESULT:PREPROCEDURE 78 OUT OF 10 AND POSTPROCEDURE 0-3 OUT OF 10. CONTINUES TO HELP TODAY. NOTES: 40-YEAR-OLD FEMALE IN FOR POST BILATERAL THERAPEUTIC LUMBAR FACET BLOCK FOLLOW-UP GIVEN PRESENTING SYMPTOMS RECOMMEND FOLLOW-UP IN 2 MONTHS. DISCUSSED THORACIC BACK PAIN WITH PATIENT AND ENCOURAGED HER TO USE HEAT TO THE AREA. PATIENT HAS EXPRESSED UNDERSTANDING OF AND WAS IN AGREEMENT WITH TREATMENT PLAN. GIVEN TIME TO ASK QUESTIONS AND EXPRESS CONCERNS. , ISTOP REGISTRY REVIEWED AND DEMONSTRATES COMPLLIANCE. (REF # [id number] ) BRINGS IN MEDICATIONS WHICH IS APPROPRIATE FOR WHAT WAS DISPENSED. PROCEDURE CODES FA211 ESTABILISHED PATIENT [facility] CHARGE DISPOSITION & COMMUNICATION FOLLOW UP 2 MONTHS (REASON: BACK PAIN) ELECTRONICALLY SIGNED BY JAKUB VILLEDA ON 01/04/2021 AT 08:47 AM EDT DISCLAIMER : THIS IS A VISIT SUMMARY EXTRACTED FROM THE [employer] CHART. IT IS NOT A COPY OF THE [employer] PROGRESS NOTE. NENITAD
== END ==
LOC: M PAIN 11:00
PROVIDERS: ATTEND Family Medicine
DX: G89.29 Other chronic pain (principal); G43.909 Migraine, unspecified, not intractable, without status migrainosus; J45.909 Unspecified asthma, uncomplicated; G47.33 Obstructive sleep apnea (adult) (pediatric); D50.9 Iron deficiency anemia, unspecified; F17.210 Nicotine dependence, cigarettes, uncomplicated; Z86.14 Personal history of Methicillin resistant Staphylococcus aureus infection; Z86.59 Personal history of other mental and behavioral disorders; Z88.5 Allergy status to narcotic agent; Z88.8 Allergy status to other drugs, medicaments and biological substances; Z91.040 Latex allergy status; Z79.899 Other long term (current) drug therapy

== ENCOUNTER → 2021-01-25 | Outpatient (CLI) | payer OTHER ==
--- NOTE | 2021-01-25 14:49 | REP ---
INDICATION: EARLY SATIETY. COMPARISON: None. TECHNIQUE/RADIOTRACER AND DOSE: 1.05 mCi of Technetium-99m sulfur colloid was ingested in two scrambled eggs and 6 ounces of water and sequential anterior and posterior images are acquired for an 89-minute imaging observation period. Regions of interest are drawn around the stomach to plot gastric emptying. FINDINGS: Expected T1/2 is 90 minutes. Sixteen% emptying is observed in this patient during the 89-minute imaging observation period, for a calculated T1/2 in this patient of 287 minutes. IMPRESSION: Markedly delayed gastric emptying. <Electronically signed by Darío Carmona > 01/25/21 0093
== END ==
LOC: M RAD 12:06
PROVIDERS: ATTEND Internal Medicine Gastroenterology
DX: R68.81 Early satiety (principal); K30 Functional dyspepsia
CPT/HCPCS: 78264; A9541

== ENCOUNTER 2021-02-04 01:28 | Emergency (ER) | payer OTHER ==
[~2021-02-04] VITALS: Ht 172.7 cm; Wt 77.7 kg
[2021-02-04] MEDS ORDERED: fentaNYL 100 MCG/2 ML INJECTION (J3010) IV ONE (01:40)
[2021-02-04] MEDS ORDERED: ONDANSETRON 4MG/2ML VIAL IV ONE (01:40)
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
[2021-02-04 02:29] LABS: HEMATOCRIT 43.4 % (36.0-47.0); HEMOGLOBIN 14.1 g/dl (12.0-15.5); MEAN CORPUSCULAR HEMOGLOBIN 30.7 pg (27.0-33.0); MEAN CORPUSCULAR HGB CONC 32.5 g/dl (32.0-36.5); MEAN CORPUSCULAR VOLUME 94.3 fl (80.0-96.0); PLATELET COUNT, AUTOMATED 128 10^3/uL (150-450); WHITE BLOOD COUNT 8.5 10^3/uL (4.0-10.0)
--- NOTE | 2021-02-04 02:34 | REPVR ---
PROCEDURE INFORMATION: Exam: CT Abdomen And Pelvis Without Contrast Exam date and time: 02/04/2021 1:51 AM Age: 41 years old Clinical indication: Abdominal pain; Flank; Right; Prior surgery; Surgery date: 6+ months; Surgery type: Giselle, appe, gastric bypass; Additional info: Eval for stone TECHNIQUE: Imaging protocol: Computed tomography of the abdomen and pelvis without contrast. Radiation optimization: All CT scans at this facility use at least one of these dose optimization techniques: automated exposure control; mA and/or kV adjustment per patient size (includes targeted exams where dose is matched to clinical indication); or iterative reconstruction. COMPARISON: CT ABD PELVIS W/O CONTRAST 09/08/2020 12:06 PM FINDINGS: Lungs: Bibasilar ground-glass pulmonary infiltrates. Minimal right lung base fibro-atelectatic change. Liver: Normal. No mass. Gallbladder and bile ducts: Status post cholecystectomy. Pancreas: Normal. No ductal dilation. Spleen: Normal. No splenomegaly. Adrenal glands: Normal. No mass. Kidneys and ureters: Small nonobstructing right renal calculus in the lower pole. Stomach and bowel: There has been gastric bypass with collapse of the bypassed stomach. Borderline distention of the colon, greatest proximally extending to the level of the rectum. Slight distention of the Arden-en-Y which is likely physiologic for the anastomosis. Mildly distended segments of small bowel with air-fluid levels which extend to the ileocecal valve and may reflect ileus. Appendix: There are no changes of appendicitis. A normal appendix is not seen. Intraperitoneal space: Unremarkable. No free air. No significant fluid collection. Vasculature: There is mild calcification of the abdominal aorta with extension into the iliac arteries. Lymph nodes: Unremarkable. No enlarged lymph nodes. Urinary bladder: Unremarkable as visualized. Reproductive: Status post hysterectomy. Bones/joints: Slight anterior wedge configuration of T6 and T7 which appear to be chronic. Soft tissues: Mild fat filled epigastric ventral wall hernia protruding to the left which is likely incisional. IMPRESSION: 1. Bibasilar ground-glass pulmonary infiltrates which are new since 09/08/2020 and may reflect pulmonary edema. There is minimal right lower lobe fibro-atelectatic change. 2. Borderline distention of the colon, greatest proximally and mildly distended segments of small bowel with air-fluid levels extending to the ileocecal valve which may reflect ileus although may reflect transmitted back pressure from the colon to the small bowel. 3. There has been prior cholecystectomy, gastric bypass and hysterectomy. 4. Small nonobstructing right renal calculus. Electronically signed by: Ibrahima An On 02/04/2021 02:33:56 AM
[2021-02-04 02:48] VITALS: BP_DIAS 58
[2021-02-04 02:52] LABS: ALBUMIN 3.6 GM/DL (3.2-5.2); ALT/SGPT 68 U/L (12-78); BILIRUBIN,TOTAL 0.2 MG/DL (0.2-1.0); BLOOD UREA NITROGEN 12 MG/DL (7-18); CALCIUM LEVEL 8.8 MG/DL (8.5-10.1); CARBON DIOXIDE LEVEL 24 MEQ/L (21-32); CHLORIDE LEVEL 105 MEQ/L (98-107); CREATININE FOR GFR 0.78 MG/DL (0.55-1.30); GLOMERULAR FILTRATION RATE > 60.0 (>58); GLUCOSE, FASTING 80 MG/DL (70-100); POTASSIUM SERUM 3.5 MEQ/L (3.5-5.1); SODIUM LEVEL 135 MEQ/L (136-145); TOTAL PROTEIN 7.5 GM/DL (6.4-8.2)
[2021-02-04 03:13] VITALS: BP_SYST 105
== END 2021-02-04 05:50 | disposition home or self-care (01) ==
LOC: M ED 01:28
DX: N20.0 Calculus of kidney (principal); S00.83XA Contusion of other part of head, initial encounter; H11.32 Conjunctival hemorrhage, left eye; Y04.8XXA Assault by other bodily force, initial encounter; Y92.9 Unspecified place or not applicable; Y93.89 Activity, other specified; Y99.9 Unspecified external cause status; R91.8 Other nonspecific abnormal finding of lung field; I10 Essential (primary) hypertension; E78.5 Hyperlipidemia, unspecified; G43.909 Migraine, unspecified, not intractable, without status migrainosus; F31.9 Bipolar disorder, unspecified; Z87.442 Personal history of urinary calculi; Z98.84 Bariatric surgery status; F17.200 Nicotine dependence, unspecified, uncomplicated; Z79.899 Other long term (current) drug therapy; Z88.6 Allergy status to analgesic agent; Z88.8 Allergy status to other drugs, medicaments and biological substances; Z88.5 Allergy status to narcotic agent; Z91.040 Latex allergy status
CPT/HCPCS: 70450; 70486; 72125; 74176; 80053; 84702; 85027; 96374; 96375; 99284; J2405; J3010

== ENCOUNTER → 2021-02-08 | Outpatient (CLI) | payer OTHER | LOC: M LABSMTC 12:02 | PROVIDERS: ATTEND Pediatrics | DX: Z11.52 Encounter for screening for COVID-19 (principal) | CPT/HCPCS: C9803; U0003 ==

== ENCOUNTER → 2021-02-14 | Outpatient (CLI) | payer OTHER ==
[~2021-02-14] MED LIST changes: +GABA-283 PO; -GABA-845 PO
--- NOTE | 2021-02-14 13:04 | REPMRS ---
Patient History The patient states she had a clinical breast exam on 09-18-2020. Patient is postmenopausal and is nulliparous. Took estrogen for 1 year beginning at age 40. Patient states no breast complaints today. Patient has signed MRS History Sheet. Digital Woman Screen Mammo: February 14, 2021 - Exam #: [id number] Bilateral CC and MLO view(s) were taken. Technologist: Catairna Akins, Photogrammetrist Prior study comparison: February 14, 2020, diagnostic bilateral mammo performed at [facility]. FINDINGS: There are scattered fibroglandular densities. Screening. Digital screening (2D) mammography was performed bilaterally in the CC and MLO projections. Additionally, breast tomosynthesis (3D mammography) was performed bilaterally in the CC and MLO projections. Todays exam was compared to the prior exams. By history, the patient has no complaints of a palpable breast abnormality or other significant breast complaints. The breasts are unchanged in size and shape. There are no cisco-soft tissue densities or spiculated masses. There is no internal architectural distortion. There are no suspicious cisco-calcific clusters. Skin thickening or nipple retraction is not present. IMPRESSION: BI-RADS Category 2- Benign Findings. There is no evidence of malignant alteration of the breasts. Followup examination recommended in one year. The Volpara volumetric breast density category is B, there are scattered areas of fibroglandular density. This mammogram was read with the assistance of [facility],an FDA approved computer aided detection system for mammography. The lifetime Tyrer-Cuzick score is 8.3% Negative x-ray reports should not delay surgical consultation if a dominant or clinically suspicious mass is present. Not all breast cancers can be identified by mammography. Therefore, we recommend that you continue to perform regular breast self-examination and physical examination and then promptly contact your physician of any concerns or changes. Adenosis and dense breasts may obscure an underlying neoplasm. Assessment: BI-RADS/ACR category 2 mammogram. Benign Findings. Recommendation Routine screening mammogram of both breasts in 1 year. Electronically Signed By: Didier Lomas DO 02/14/21 [id number]
== END ==
LOC: M WHC 12:08
PROVIDERS: ATTEND Specialist
DX: Z12.31 Encounter for screening mammogram for malignant neoplasm of breast (principal)

== ENCOUNTER → 2021-02-15 | Outpatient (CLI) | payer OTHER ==
--- NOTE | 2021-02-19 16:06 | SLEEPHOME ---
DIAGNOSTIC HOME SLEEP STUDY DATE: 02/15/2021 ORDERED BY: GIDEON Jones Diagnostic home sleep testing was performed due to concern for the obstructive sleep apnea syndrome in this patient with a history of same who has accomplished weight loss. For testing, a nocturnal T3 respiratory monitoring device was used. Continuous record was made of pulse, oxygen saturation, air flow, chest and abdominal strain, and body position. 9 hours and 59 minutes of data were reviewed. There were 6 hours and 6 minutes marked as time in bed. During the interval marked time in bed, there were 33 respiratory events identified of 10 seconds in duration or greater for a respiratory event index 5.6. The events were primarily obstructive, 8 mixed and central apneas were seen. Baseline pulse rate 64 beats per minute. Pulse rate range 52 to 124. Baseline saturation was 92%. Saturations were recorded as low as 75%; however, there was some artifactual change early in the study. Testing was performed in both the supine and non-supine positions. IMPRESSION: IMPRESSION: Abnormal home sleep testing, with repetitive respiratory events and oxygen desaturations to 75% and a respiratory event index of 5.6, is consistent with the obstructive sleep apnea syndrome. RECOMMENDATION: The patient should be encouraged to undergo a formal sleep evaluation.
== END ==
LOC: M SLEEP HO 12:30
PROVIDERS: ATTEND Physician Assistant
DX: G47.33 Obstructive sleep apnea (adult) (pediatric) (principal)

== ENCOUNTER → 2021-02-20 | Outpatient (CLI) | payer OTHER ==
--- NOTE | 2021-02-20 16:18 | REP ---
INDICATION: OTHER NONSPECIFIC ABNORMAL FINDING OF LUNG FIELD. COMPARISON: 06/14/2020 the latest prior TECHNIQUE: PA and lateral views FINDINGS: The cardiomediastinal silhouette lung walker are stable. Chronic changes are again seen the right lung base. No acute patchy parenchymal opacities or pleural effusions have developed. There is no significant change in appearance of the osseous structures. IMPRESSION: No acute cardiopulmonary disease or significant change. <Electronically signed by Didier Lomas > 02/20/21 [id number]
== END ==
LOC: M RAD 10:49
PROVIDERS: ATTEND Family Medicine
DX: R91.8 Other nonspecific abnormal finding of lung field (principal)

== ENCOUNTER → 2021-02-26 | Outpatient (CLI) | payer OTHER ==
[2021-02-26 14:02] LABS: INR 0.86; PARTIAL THROMBOPLASTIN TIME 25.3 SECONDS (24.2-38.5); PROTHROMBIN TIME 11.9 SECONDS (12.5-14.3)
[2021-02-26 14:35] LABS: ALBUMIN 3.4 GM/DL (3.2-5.2); ALT/SGPT 35 U/L (12-78); BILIRUBIN,DIRECT 0.1 MG/DL (0.0-0.2); BILIRUBIN,TOTAL 0.3 MG/DL (0.2-1.0); CHOLESTEROL LEVEL 194 MG/DL (<200); CHOLESTEROL RISK RATIO 2.455 (<5); FERRITIN 12 NG/ML (8-252); HDL CHOLESTEROL 79 MG/DL (>40); HEPATITIS B SURFACE ANTIBODY POSITIVE (POSITIVE); IRON (FE) 50 UG/DL (50-170); LDL CHOLESTEROL 105 MG/DL (<100); NON-HDL-C 115 MG/DL; PERCENT SATURATION 10.2 % (13.2-45.0); THYROID STIMULATING HORMONE 0.883 uIU/ML (0.358-3.740); TOTAL IRON BINDING CAPACITY 488 UG/DL (250-450); TRIGLYCERIDES LEVEL 49 MG/DL (<150)
[2021-02-26 14:46] LABS: HEPATITIS B SURFACE ANTIGEN NEGATIVE (NEGATIVE)
[2021-02-26 15:16] LABS: HEPATITIS A ANTIBODY IGM NEGATIVE (NEGATIVE)
[2021-02-27 16:09] LABS: ALPHA 1 ANTITRYPSIN 119 mg/dL (101-187); ANTI-MITOCHONDRIAL ANTIBODY <20.0 Units (0.0-20.0); ANTI-SMOOTH MUSCLE ANTIBODY 6 Units (0-19); ANTINUCLEAR ANTIBODIES DIRECT Negative (Negative); HEPATITIS A IgG TOTAL Positive (Negative); LIVER-KIDNEY MICROSOMAL ABY <20.1 Units (0.0-20.0); TISSUE TRANSGLUTAMINASE IgA <2 U/mL (0-3)
[2021-02-28 14:59] LABS: ALBUMIN 4.05 GM/DL (3.29-5.55); ALBUMIN % 57.8 % (55.8-66.1); ALPHA-1-GLOBULIN % 4.9 % (2.9-4.9); ALPHA-1-GLOBULINS 0.34 GM/DL (0.17-0.41); ALPHA-2-GLOBULINS 0.78 GM/DL (0.42-0.99); ALPHA-2-GLOBULINS % 11.1 % (7.1-11.8); BETA-1-GLOBULINS 0.46 GM/DL (0.28-0.60); BETA-1-GLOBULINS % 6.6 % (4.7-7.2); BETA-2-GLOBULINS 0.28 GM/DL (0.19-0.55); GAMMA GLOBULIN % 15.6 % (11.1-18.8); GAMMA GLOBULINS 1.09 GM/DL (0.65-1.58)
== END ==
LOC: M LAB 12:42
PROVIDERS: ATTEND Internal Medicine Gastroenterology
DX: K31.84 Gastroparesis (principal); R10.13 Epigastric pain; R63.4 Abnormal weight loss; K21.9 Gastro-esophageal reflux disease without esophagitis; F10.10 Alcohol abuse, uncomplicated

== ENCOUNTER → 2021-03-02 | Outpatient (CLI) | payer OTHER ==
--- NOTE | 2021-03-07 04:35 | ECWPNPC ---
PATIENT NAME: ADELA ALMONTE : 1980 GENDER: FEMALE VISIT DATE: 03/02/2021 DISCHARGE DATE: 03/02/21 1006 VISIT LOCKED DATE TIME: PHYSICIAN: RAVEN CORDON PHYSICIAN PAGER NO: ACTIVE RESOURCE: RAVEN CORDON REASON FOR APPOINTMENT 1. LOW BACK PAIN HISTORY OF PRESENT ILLNESS DEPRESSION SCREENING: PHQ-2 (2015 EDITION) LITTLE INTEREST OR PLEASURE IN DOING THINGS?SEVERAL DAYS FEELING DOWN, DEPRESSED, OR HOPELESS?NOT AT ALL TOTAL SCORE1 GENERAL: HPI 41-YEAR-OLD FEMALE IN FOR CHRONIC PAIN FOLLOW-UP. SHE RATES HER PAIN CURRENTLY AT A 7 OUT OF 10. PATIENT HAS HAD BILATERAL SACROILIAC JOINT BLOCKS IN THE PAST WITH GOOD RESULTS EVIDENCED BY DECREASED PAIN AND INCREASED FUNCTIONALITY. WE WILL DISCUSS REPEAT PROCEDURES TODAY.. -. FALL RISK SCREENING: SCREENING : NO FALLS REPORTED IN THE LAST YEAR. PAIN SCREENING: PATIENT HAS A COMPLAINT OF ACUTE OR CHRONIC PAIN :YES LOCATION OF PAIN:LOW BACK INTENSITY OF PAIN (SCALE OF 1 TO 10):7 WHAT DOES YOUR PAIN FEEL LIKE:ACHING, BURNING, INTERMITTENT, SHARP, STABBING, TENDER, THROBBING, SORE, SHOOTING COOLING DURATION:INTERMITTENT PAIN IS INCREASED BY:ACTIVITIES, PROLONGED STANDING PAIN IS DECREASED BY:USE OF PAIN MEDICATIONS, SITTING HEAT, ICE AND REST NURSING NOTE: -. PAIN CENTER INTAKE QUESTIONS: DO YOU HAVE A HISTORY OF MRSA? :YES DO YOU TAKE A BLOOD THINNERS? :NO DO YOU HAVE ANY BLEEDING DISORDERS? :YES ANEMIA ANY NEW NUMBNESS OR WEAKNESS IN YOUR LEGS OR ARMS? :NO ANY PACEMAKER,DEFIBRILLATOR, OR DORSAL COLUMN STIMULATOR? :NO DO YOU HAVE ANY RASHES OR OPEN SORES? :NO ARE YOU ALLERGIC TO IV DYE? :NO ARE YOU DIABETIC? :NO ANY NEW PROBLEMS WITH YOUR MEDICATIONS? :NO HAVE YOU RECEIVED A VACCINE IN THE PAST 30 DAYS? :NO DO YOU PLAN TO RECEIVE A VACCINE IN THE NEXT 21 DAYS? :NO DO YOU NEED ANY PRESCRIPTION? :YES LYRICA AND TOPIRAMATE DO YOU TAKE ANY IMMUNOSUPPRESSIVE MEDICATIONS? :NO DO YOU HAVE ANY KIDNEY OR LIVER DISEASE? :NO PATIENT CONCERNED ABOUT LIVER BLOODWORK IS THERE A CHANCE YOU COULD BE ? :NO ARE YOU BREAST FEEDING? :NO CURRENT MEDICATIONS TAKING VYVANSE 70 MG CAPSULE (SCHEDULE II DRUG) TAKE ONE CAPSULE BY MOUTH EVERY MORNING - MAXIMUM DAILY DOSE ONE CAPSULE ORAL TAKING BUSPIRONE HCL 30 MG TABLET TAKE ONE TABLET BY MOUTH @6AM AND TAKE ONE TABLET BY MOUTH @8PM ORAL TAKING PRAZOSIN HCL 1 MG CAPSULE TAKE ONE CAPSULE BY MOUTH @8PM ORAL TAKING IMITREX 4 MG/0.5 ML 1 INJECTION SUBCUTANEOUS NEEDED TAKING FAMOTIDINE 40 MG TABLET TAKE ONE TABLET BY MOUTH @8PM ORAL TAKING AIMOVIG 70 MG/ML SOLUTION AUTO-INJECTOR USE ONCE PER MONTH SUBCUTANEOUS TAKING PROMETHAZINE HCL 25 MG TABLET TAKE ONE TABLET BY MOUTH @6AM AND TAKE ONE TABLET BY MOUTH @NOON AND TAKE ONE TABLET BY MOUTH @6PM AND TAKE ONE TABLET BY MOUTH @8PM ORAL TAKING MOVANTIK 25 MG TABLET TAKE ONE TABLET BY MOUTH @6AM ORAL TAKING CUVITRU 4 GM/20ML SOLUTION DIRECTED SUBCUTANEOUS TAKING LIDOCAINE HCL 3 % CREAM APPLY TO ABDOMEN 30 MINUTES PRIOR TO INFUSION EXTERNAL TAKING VRAYLAR 4.5 MG CAPSULE TAKE ONE CAPSULE BY MOUTH AT BEDTIME ORALLY ONCE A DAY TAKING BOTOX 100 UNIT SOLUTION RECONSTITUTED DIRECTED INTRAMUSCULAR TAKING ALBUTEROL SULFATE (2.5 MG/3ML) 0.083% NEBULIZATION SOLUTION 3 ML NEEDED INHALATION EVERY 8 HRS TAKING ESTRADIOL 0.025 MG/24HR PATCH WEEKLY APPLY ONE PATCH TOPICALLY ONCE PER WEEK TRANSDERMAL ONCE PER WEEK TAKING ACETAMINOPHEN 500 MG CAPSULE 1 CAPSULES NEEDED ORALLY EVERY 6 HRS PRN, NOTES: ONE WEEK AGO TAKING VENTOLIN HFA 90 MCG/ACT AEROSOL SOLUTION 1 PUFF NEEDED INHALATION EVERY 4 HRS TAKING AMBIEN 10 MG TABLET 1 TABLET AT BEDTIME NEEDED ORALLY ONCE A DAY TAKING TIZANIDINE HCL 4 MG TABLET 1 TABLET NEEDED ORALLY THREE TIMES A DAY PRN, NOTES: 2 NIGHTS AGO TAKING PREGABALIN 200 MG CAPSULE 1 CAPSULE ORAL THREE TIMES DAILY, NOTES: 12/19/2020 0630 TAKING DICYCLOMINE HCL 20 MG TABLET TAKE ONE TABLET BY MOUTH @6AM AND TAKE ONE TABLET @NOON AND TAKE ONE TABLET @8PM ( NEEDED FOR PAIN) ORAL TAKING FERROUS SULFATE 324 (65 FE) MG TABLET DELAYED RELEASE 1 TABLET ORALLY ONCE A DAY TAKING AZELASTINE HCL 137 MCG/SPRAY SOLUTION 1 PUFF IN EACH NOSTRIL NASALLY TWICE A DAY TAKING FLUTICASONE PROPIONATE 50 MCG/ACT SUSPENSION 1 SPRAY IN EACH NOSTRIL NASALLY ONCE A DAY TAKING KLONOPIN 0.5 MG TABLET 1 TABLET AT BEDTIME ORALLY ONCE A DAY TAKING NIFEDIPINE 20 MG CAPSULE TAKE ONE CAPSULE BY MOUTH @6AM ORAL DAILY TAKING PANTOPRAZOLE SODIUM 40 MG TABLET DELAYED RELEASE TAKE ONE TABLET BY MOUTH @6AM ORAL ONCE A DAY TAKING FUROSEMIDE 20 MG TABLET TAKE ONE TABLET BY MOUTH @6AM TAKING CETIRIZINE HCL 10 MG TABLET TAKE ONE TABLET BY MOUTH @6AM ( NEEDED) ORAL ONCE DAILY TAKING TOPIRAMATE 50 MG TABLET TAKE ONE TABLET BY MOUTH TWICE DAILY BOTTLE ORAL TWICE DAILY TAKING CHANTIX 1 MG TABLET DIRECTED ORALLY TWICE A DAY TAKING AUGMENTIN 125-31.25 MG/5ML SUSPENSION RECONSTITUTED DIRECTED ORALLY TAKING MISOPROSTOL 200 MCG TABLET 1 TABLET WITH MEALS AND AT BEDTIME ORALLY THREE TIMES DAILY NOT-TAKING BACTRIM DS 800-160 MG TABLET 1 TABLET ORALLY DIRECTED-1 HOUR PRIOR TO CYSTOSCOPY NOT-TAKING ATARAX TABLET 50 MG ORAL FOUR TIMES DAILY NEEDED NOT-TAKING FIBER LAXATIVE 625 MG TABLET 2 TABLETS NEEDED ORALLY THREE TIMES A DAY NOT-TAKING NICOTROL 10 MG INHALER 1 CARTRIDGE NEEDED INHALATION 16 TIME(S) A DAY UNKNOWN NICORETTE 4 MG LOZENGE 1 LOZENGE NEEDED MOUTH/THROAT 20 TIME(S) A DAY MEDICATION LIST REVIEWED AND RECONCILED WITH THE PATIENT PAST MEDICAL HISTORY COMMON VARIABLE IMMUNO DEFICIENCY DISEASE HISTORY OF KIDNEY STONES CHRONIC NECK/MID/LOW BACK PAIN - PAIN CENTER CHRONIC OPIOID USE, OPIOID-INDUCED CONSTIPATION PEPTIC ULCER DISEASE, GERD, S/P GASTRIC BYPASS - DR. MILLER BIPOLAR, ANXIETY, DEPRESSION, ADHD - DR. OTERO MIGRAINE HEADACHES - CAREY NEURO, GETS BOTOX INJECTIONS SURGICAL MENOPAUSE S/P ELIA & BSO (2009) FOR ENDOMETRIOSIS; PRESCRIBED ESTRADIOL BY CHRONIC RHINITIS/SINUSITIS, ALLERGIES RAYNAUD'S SYNDROME ASTHMA, JOSEPH ON BIPAP - DR. SAI TIDWELL HISTORY OF IRON-DEFICIENCY ANEMIA TOBACCO USE; SMOKES 15 CIG/DAY HISTORY OF ALCOHOL USE DISORDER; DRINKS 2 DAYS A WEEK HISTORY OF DRUG ABUSE IN REMISSION; USED IV METH AND IV ECSTASY IN 08/2019 HEART MURMUR - ECHO 10/2017 BORDERLINE LVH, MILD LAE, SUBTLE AV SCLEROSIS, AORTIC SCLEROSIS, MILD AR, MILD MR HTN - [facility]ENTRAL HERNIA GASTRIC PARESIS ALLERGIES MORPHINE SULFATE: TACHYCARDIA DILAUDID: TACHYCARDIA REGLAN: HIVES LAMICTAL: WELTS LATEX GLOVES: UNKNOWN SURGICAL HISTORY BACK SURGERY 1997 LAPAROTOMY X 4 FOR ENDOMETRIOSIS AT [facility], DR. CRISTOBAL 200S CHOLECYSTECTOMY 07/2008 LUMBAR LAMINECTOMY, [place] 02/2009 HYSTERECTOMY, APPENDECTOMY - FOR ENDOMETRIOSIS 12/2009 GASTRIC BYPASS (DR. CARTAGENA, [facility]) 01/2012 LAPAROSCOPY AND REMOVAL OF ADHESIONS (DR. BARRERA) 12/2012 CHEST TUBE ENDOSCOPY/COLONOSCOPY BLADDER REPAIR 10/2016 LAPROSCOPC SURGERY FOR ENDOMETRIOSIS / LYSIS OF ADHESIONS AND SCAR TISSUE (BOWEL NICKED IN OR). 12/19/17 EGD - ESOPHAGEAL PLAQUE - BIOPSY RESULTS NOT SENT TO US (DR. MILLER) 05/2018 REMOVAL CYSTS IN BILATERAL EARS REMOVAL OF NEEDLE FROM RIGHT FOOT EGD - WHITE PLAQUE, ESOPHAGITIS; DR. Renea BARRERA 11/2020 COLONOSCOPY - 1 POLYP, MINIMAL ERYTHEMA; DR. Renea BARRERA 11/2020 SOCIAL HISTORY GENERAL: TOBACCO USE ARE YOU A:CURRENT SMOKER ARE YOU INTERESTED IN QUITTING?READY TO QUIT WAITING FOR PRESCRIPTION FOR CHANTIX. PREVIOUS QUIT ATTEMPTS?YES, WITHIN THE LAST 6 MONTHS. COUNSELED THE PATIENT ON TOBACCO USE, CESSATION [id number]/28/2021 HOW MANY CIGARETTES A DAY DO YOU SMOKE?11-20 HOW SOON AFTER YOU WAKE UP DO YOU SMOKE YOUR FIRST CIGARETTE?AFTER 60 MIN HOW OFTEN DO YOU SMOKE CIGARETTES?EVERY DAY PATIENT COUNSELED ON THE DANGERS OF TOBACCO USE AND URGED TO QUIT:02/20/2021 SMOKING CESSATION INFORMATION GIVEN02/20/2021 VAPORNO E-CIGARETTEYES OCCASIONALLY LATEX QUESTIONNAIRE LATEX ALLERGY : HAVE YOU EVER DEVELOPED ANY TYPE OF REACTION AFTER HANDLING LATEX PRODUCTS SUCH RUBBER GLOVES, CONDOMS, DIAPHRAGMS, BALLOONS, SOCKS, OR UNDERWEAR?YES - PLEASE INDICATE :RUBBER GLOVES, CONDOMS, UNDERWEAR, OTHER (DOCUMENT IN NOTES) BRAS LATEX ALLERGY : HAVE YOU EVER DEVELOPED ANY TYPE OF REACTION DURING OR AFTER DENTAL APPOINTMENT, VAGINAL/RECTAL EXAMINATION, SURGICAL PROCEDURE, OR ANY OTHER EXPOSURE?YES - PLEASE INDICATE :VAGINAL EXAM LATEX RISK : HAVE YOU EVER HAD ANY DIFFICULTY BREATHING OR HIVES AFTER EATING OR HANDLING ANY FRUITS, OR VEGETABLES; SUCH KIWI, BANANAS, STONE FRUITS, OR CHESTNUTSNO LATEX RISK : DO YOU HAVE A PREVIOUS PERSONAL HISTORY OF MORE THAN NINE SURGERIES, SPINA BIFIDA, OR REPEATED CATHERIZATIONS? YES - PLEASE INDICATE : > 9 SURGERIES LATEX RISK : ARE YOU FREQUENTLY EXPOSED TO LATEX PRODUCTS IN YOUR OCCUPATION?NO DATE ASKED : 03/02/2021 ALCOHOL USE: OCCASIONAL. LUNG CANCER SCREENING SMOKING STATUS:CURRENT SMOKER BMI CARE GOAL FOLLOW-UP ABOVE NORMAL BMI FOLLOW-UPDIETARY MANAGEMENT EDUCATION, GUIDANCE, AND COUNSELING, DIETARY NEEDS EDUCATION, EXERCISE PROMOTION: STRENGTH TRAINING ALCOHOL SCREENING DID YOU HAVE A DRINK CONTAINING ALCOHOL IN THE PAST YEAR?YES HOW OFTEN DID YOU HAVE SIX OR MORE DRINKS ON ONE OCCASION IN THE PAST YEAR?NEVER (0 POINTS) HOW MANY DRINKS DID YOU HAVE ON A TYPICAL DAY WHEN YOU WERE DRINKING IN THE PAST YEAR?1 OR 2 (0 POINTS) HOW OFTEN DID YOU HAVE A DRINK CONTAINING ALCOHOL IN THE PAST YEAR?TWO TO THREE TIMES PER WEEK (3 POINTS) POINTS3 INTERPRETATIONPOSITIVE RECREATIONAL DRUG USE DRUG USE?NO CAFFEINE CAFFEINE USE?YES 6-8 CUPS COFFEE DAILY, SODA ON OCCASIONS SEXUAL HX HAD SEX IN THE LAST 12 MONTHS (VAGINAL, ORAL, OR ANAL)?NO LMP:2009 HAVE YOU EVER HAD AN STD?NO HIV / HEP-C SCREENING HIV TEST OFFERED TO PATIENT:YES DATE OFFERED:03/13/2017 TEST ACCEPTED:NO HEP-C TEST OFFERED TO PATIENT:NO REASON:PATIENT DECLINED BAHAI [id number] RASTAFARI LANGUAGE LANGUAGES SPOKEN:SERBIAN EDUCATION LEVEL OF EDUCATION:NOT FINISHED COLLEGE LEARNING BARRIERS / SPECIAL NEEDS CHANGE FROM LAST VISIT?NO BARRIERS TO LEARNING?NO HEARING IMPAIRED?YES VISION IMPAIRED?YES :CORRECTIVE LENSES COGNITIVELY IMPAIRED?NO READINESS TO LEARN?YES LEARNING PREFERENCES?NO LEARNING CAPABILITIES PRESENT?YES EMOTIONAL BARRIERS?NO SPECIAL DEVICES?NO RETAIL SUPPORT SPECIALIST NEEDED?NO DOMESTIC VIOLENCE DO YOU FEEL SAFE IN YOUR ENVIRONMENT?YES OCCUPATION: UNEMPLOYED. DIET: REGULAR. EXERCISE: NO REGULAR EXERCISE. MARITAL STATUS: SINGLE. OTHERS AT HOME: NONE. - PFS REFERRAL NEEDED?NO CLERGY REFERRAL NEEDED?NO PUBLIC HEALTH REFERRAL NEEDED?NO HAS THE PATIENT BEEN EDUCATED REGARDING HIS/HER PLAN OF CARE?YES HAS THE PATIENT BEEN EDUCATED REGARDING PAIN, THE RISK FOR PAIN, THE IMPORTANCE OF EFFECTIVE PAIN MANAGEMENT, AND THE PAIN ASSESSMENT PROCESS?YES ADVANCE DIRECTIVE ADVANCE DIRECTIVE DISCUSSED WITH PATIENT:YES 07/27/2020 PT DOES NOT HAVE ANY ADVANCED DIREDCTIVES AND SHE DECLINES INFORMATION ON HCP AT THIS TIME. AD HOSPITALIZATION/MAJOR DIAGNOSTIC PROCEDURE SURGERY RELATED [facility] ([facility]) 05/2012 ADMITTED TO [facility] 12/2015 [facility] - RUPTURED BLADDER 10/2016 [facility] 2 DAY HOSPITAL STAY DUE TO NICKED BOWEL 12/19/2017 PNEUMONIA 2015 & 2018 REHAB 2014 REVIEW OF SYSTEMS CONSTITUTIONAL: ANY RECENT FEVER NO . CHILLS NO . WEIGHT CHANGE OF UNKNOWN REASONS NO . GASTROENTEROLOGY: NEW UNEXPLAINABLE CHANGES IN BOWEL CONTROL NO . CONSTIPATION NO . GENITOURINARY: ANY NEW CHANGE IN BLADDER CONTROL? NO . NEUROLOGY: NEW ONSET DIZZINESS OR NEUROLOGICAL CHANGES NOT MENTIONED NO . NEW NUMBNESS OR PAIN PATTERNS NOT MENTIONED AND PERTINENT TO TODAY'S VISIT NO . CARDIOLOGY: NEW CHEST PRESSURE NO . PATIENT DENIES NO . RESPIRATORY: UNEXPLAINABLE COUGH NO . NEW SHORTNESS OF BREATH NO . VITAL SIGNS WT 183.8 LBS, HT 67", BMI 28.78 INDEX, BP 125/78 MM HG, HR 83 /MIN, RR 18 /MIN, TEMP 97.2 F, OXYGEN SAT % 98%, SAFE IN ENV? (Y/N) YES, REVIEWED BY: RETA ARROYO MA. EXAMINATION GENERAL EXAMINATION: GENERALNO ACUTE DISTRESS, WELL NOURISHED AND HYDRATED. PSYCHAPPROPRIATE MOOD AND AFFECT . LUNGS:CLEAR TO AUSCULTATION BILATERALLY, NO WHEEZES, RHONCHI, RALES. HEART:NO MURMURS, REGULAR RATE AND RHYTHM. BACK:POINT TENDER BILATERAL SIJ, POSITIVE KRA'S TEST BILATERALLY. ASSESSMENTS SACROILIITIS, NOT ELSEWHERE CLASSIFIED - M46.1 (PRIMARY), RISK: (NULL) CHRONIC MIGRAINE WITHOUT AURA, NOT INTRACTABLE, WITHOUT STATUS MIGRAINOSUS - G43.709 TREATMENT SACROILIITIS, NOT ELSEWHERE CLASSIFIED START BACLOFEN TABLET, 5 MG, 1 TABLET NEEDED, ORALLY, TWICE A DAY, 30 DAY(S), 60 TABLET MEDICATION: VALIUM TAB 10MG ORALLY (DIAZEPAM) (ORDERED FOR 03/13/2021) MEDICATION: OXYCODONE HCL TAB 10MG ORALLY (ORDERED FOR 03/13/2021) NOTES: 41-YEAR-OLD FEMALE IN FOR CHRONIC PAIN FOLLOW-UP. GIVEN PRESENTING SYMPTOMS AND RESULTS OF PHYSICAL EXAMINATION RECOMMEND BILATERAL SACROILIAC JOINT BLOCKS WITH POST PROCEDURAL FOLLOW-UP. PATIENT HAS EXPRESSED UNDERSTANDING OF AND WAS IN AGREEMENT WITH TREATMENT PLAN. GIVEN TIME TO ASK QUESTIONS AND EXPRESS CONCERNS. ISTOP REGISTRY REVIEWED AND DEMONSTRATES COMPLLIANCE. (REF # [id number] ) BRINGS IN MEDICATIONS WHICH IS APPROPRIATE FOR WHAT WAS DISPENSED. . CHRONIC MIGRAINE WITHOUT AURA, NOT INTRACTABLE, WITHOUT STATUS MIGRAINOSUS REFILL TOPIRAMATE TABLET, 50 MG, TAKE ONE TABLET BY MOUTH TWICE DAILY BOTTLE, ORAL, TWICE DAILY, 30 DAYS, 60, REFILLS 2 OTHERS STOP TIZANIDINE HCL TABLET, 4 MG, 1 TABLET NEEDED, ORALLY, THREE TIMES A DAY PRN, NOTES: 2 NIGHTS AGO REFILL PREGABALIN CAPSULE, 200 MG, 1 CAPSULE, ORAL, THREE TIMES DAILY, 30 DAYS, 90, REFILLS 1, NOTES: 12/19/2020 0630 DISPOSITION & COMMUNICATION FOLLOW UP POST PROCEDURE (REASON: BILATERAL SACROILIAC JOINT BLOCK ) ELECTRONICALLY SIGNED BY JAKUB VILLEDA ON 03/06/2021 AT 08:42 AM EDT DISCLAIMER : THIS IS A VISIT SUMMARY EXTRACTED FROM THE [facility] CHART. IT IS NOT A COPY OF THE [employer] PROGRESS NOTE. NENITAD
== END ==
LOC: M PAIN 09:30
PROVIDERS: ATTEND Family Medicine
DX: M46.1 Sacroiliitis, not elsewhere classified (principal); G43.709 Chronic migraine without aura, not intractable, without status migrainosus; G89.29 Other chronic pain; K21.9 Gastro-esophageal reflux disease without esophagitis; G43.909 Migraine, unspecified, not intractable, without status migrainosus; J45.909 Unspecified asthma, uncomplicated; G47.33 Obstructive sleep apnea (adult) (pediatric); D50.9 Iron deficiency anemia, unspecified; F17.210 Nicotine dependence, cigarettes, uncomplicated; Z86.14 Personal history of Methicillin resistant Staphylococcus aureus infection; Z86.59 Personal history of other mental and behavioral disorders; Z98.84 Bariatric surgery status; Z88.5 Allergy status to narcotic agent; Z88.8 Allergy status to other drugs, medicaments and biological substances; Z91.040 Latex allergy status; Z79.899 Other long term (current) drug therapy

== ENCOUNTER → 2021-03-12 | Outpatient (CLI) | payer OTHER ==
[~2021-03-12] MED LIST changes: +ISOVUE-370 76% 100ML VIAL As Ordered ONE
--- NOTE | 2021-03-16 01:17 | REP ---
INDICATION: HEMOPTYSIS CHRONIC COUGH NICOTINE DEPENDENCE COMPARISON: 06/27/2020, 07/10/2018 TECHNIQUE: Axial contrast enhanced images from the thoracic inlet to the upper abdomen with coronal and sagittal reformations using 75 ml Isovue 370 intravenous contrast material. This CT examination was performed using the following dose reduction techniques: Automated exposure control, adjustment of mA and/or kv according to the patient's size, and use of iterative reconstruction technique. FINDINGS: Focal area of suspected chronic rounded atelectasis and adjacent scarring along the periphery of the anterior segment right lower lobe remains essentially stable compared to 06/27/2020, but represents a new finding as compared with 07/10/2018 where area of consolidation was than identified. Remainder of lung walker demonstrate mild chronic interstitial changes. No acute consolidation, further suspicious nodule or mass. No effusion or pneumothorax. Tracheobronchial tree is patent. No axillary, hilar, or mediastinal adenopathy. A persistent left superior vena cava is noted. Thoracic aorta, pulmonary vasculature, and heart/pericardium are otherwise normal in appearance. Surrounding musculoskeletal structures are intact and without acute osseous abnormality. Limited upper abdomen demonstrates gastric bypass surgery and cholecystectomy. Mild diffuse hepatosteatosis suggested. IMPRESSION: 1. Presumed focal small area of rounded chronic atelectasis along the periphery of the right lower lobe essentially stable compared to 2019. Consider 6-12 month follow-up examination to confirm chronicity. 2. No further acute mediastinal or pleuroparenchymal process appreciated. 3. 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 <Electronically signed by Pritesh Castellanos > 03/16/21 0113
== END ==
LOC: M RAD 17:55
PROVIDERS: ATTEND Family Medicine
DX: R04.2 Hemoptysis (principal); F17.218 Nicotine dependence, cigarettes, with other nicotine-induced disorders; K76.0 Fatty (change of) liver, not elsewhere classified; Z98.84 Bariatric surgery status; Z90.49 Acquired absence of other specified parts of digestive tract; R91.8 Other nonspecific abnormal finding of lung field
CPT/HCPCS: 71260; Q9967

== ENCOUNTER → 2021-03-20 | Outpatient (REF) | payer OTHER ==
[~2021-03-20] MED LIST changes: -ISOVUE-370 76% 100ML VIAL As Ordered ONE
== END ==
LOC: M SFHCPLAZ 14:53
PROVIDERS: ATTEND Family Medicine
DX: Z92.29 Personal history of other drug therapy (principal)

== ENCOUNTER → 2021-03-23 | Outpatient (CLI) | payer OTHER ==
[~2021-03-23] MED LIST changes: -DOXY100C37 PO; +DOXY1CAP62 PO; +OMEP40CA4 PO; -OMEP40CA97 PO
--- NOTE | 2021-03-26 14:42 | SLEEPCENT ---
NOCTURNAL POLYSOMNOGRAPHY CPAP TITRATION DATE: 03/23/2021 ORDERED BY: Td Hamilton. Nocturnal polysomnography was performed for the titration of pressure therapy in this patient with a clinical diagnosis of obstructive sleep apnea syndrome confirmed by home testing revealing respiratory event index of 5.6. For testing, the patient was fit with a ResMed F30 full face mask of small size. 4 cm of water pressure were applied to the circuit, and the lights were extinguished. 7 hours and 52 minutes of data were reviewed. There were 458 minutes of sleep identified. Sleep latency was short at 0.5 minutes. REM sleep was mildly delayed at 231 minutes. Sleep architecture improved late in the study, and there were 3 REM cycles noted. Overall sleep efficiency was 98%. The electrocardiogram showed a sinus rhythm with an average heart rate of 68 beats per minute. EEG showed normal waveforms for awake and sleep. Respiratory events were fully palliated with CPAP at a pressure of 4, and remaining measures of sleep physiology were normal. IMPRESSION: Obstructive sleep apnea syndrome (G47.33). RECOMMENDATION: Nightly use of pressure therapy, 4 cm of water. cc: STACI RICH MD
== END ==
LOC: M SLEEP 20:00
PROVIDERS: ATTEND Physician Assistant
DX: G47.33 Obstructive sleep apnea (adult) (pediatric) (principal)

== ENCOUNTER → 2021-03-26 | Outpatient (CLI) | payer OTHER ==
[2021-03-26 17:53] LABS: % LABILE ALKALINE PHOSPHATASE 26.5 %
== END ==
LOC: M LAB 14:21
PROVIDERS: ATTEND Nurse Practitioner Family
DX: R74.8 Abnormal levels of other serum enzymes (principal); F10.10 Alcohol abuse, uncomplicated

== ENCOUNTER → 2021-03-30 | Outpatient (CLI) | payer OTHER ==
[~2021-03-30] MED LIST changes: +BACL5TAB2 PO; +CLON0.5T2 PO; +MAPA500C PO; +MISO200T56 PO
== END ==
LOC: M LABSMTC 09:40
PROVIDERS: ATTEND Anesthesiology
DX: Z20.822 Contact with and (suspected) exposure to COVID-19 (principal)

== ENCOUNTER → 2021-04-02 | Outpatient (CLI) | payer OTHER ==
[2021-04-02 17:19] LABS: BASO % 0.6 % (0.0-1.0); EOS % 0.8 % (0.0-3.0); HEMATOCRIT 45.1 % (36.0-47.0); HEMOGLOBIN 14.8 g/dl (12.0-15.5); LYMPH % 41.3 % (24.0-44.0); MEAN CORPUSCULAR HEMOGLOBIN 30.7 pg (27.0-33.0); MEAN CORPUSCULAR HGB CONC 32.8 g/dl (32.0-36.5); MEAN CORPUSCULAR VOLUME 93.6 fl (80.0-96.0); MONO # 0.3 10^3/uL (0.0-0.8); MONO % 5.8 % (2.0-8.0); NEUTROPHILS # 2.5 10^3/uL (1.5-8.5); NEUTROPHILS % 51.3 % (36.0-66.0); PLATELET COUNT, AUTOMATED 145 10^3/uL (150-450); RED BLOOD COUNT 4.82 10^6/uL (4.00-5.40); WHITE BLOOD COUNT 4.8 10^3/uL (4.0-10.0)
== END ==
LOC: M PLALAB 14:21
PROVIDERS: ATTEND Allergy & Immunology Allergy
DX: D83.9 Common variable immunodeficiency, unspecified (principal)

== ENCOUNTER → 2021-04-04 | Outpatient (CLI) | payer OTHER ==
[~2021-04-04] MED LIST changes: +BUPIVACAINE HCL 0.25% 30ML VIAL As Ordered ONE; +ISOVUE-M 300 61% 15ML VIAL As Ordered ONE; +LIDOCAINE 1% SDV 30ML VIAL As Ordered ONE; +ONDANSETRON 4 MG ORAL DISINTEGRATING TAB As Ordered ONE; +TRIAMCINOLONE ACETONIDE SUSP 40 MG/ML VIAL (J3301) As Ordered ONE; +diazePAM 5MG TABLET As Ordered ONE; +diphenhydrAMINE 25MG CAP As Ordered ONE; +oxyCODONE 5MG TAB As Ordered ONE
--- NOTE | 2021-04-04 16:22 | REP ---
INDICATION: BILATERAL SACRO ILLIAC. COMPARISON: None. TECHNIQUE: Two views. 15.3 seconds of fluoroscopy time is reported. FINDINGS: A sequence of 2 last image hold fluoroscopically obtained spot radiographs of the SI joints document needle position and contrast injection associated with injection procedure. IMPRESSION: Procedural imaging. <Electronically signed by Darío Carmona > 04/04/21 3535
--- NOTE | 2021-04-05 02:10 | ECWPNPC ---
PATIENT NAME: ADELA ALMONTE : 1980 GENDER: FEMALE VISIT DATE: 04/04/2021 DISCHARGE DATE: 04/04/21 1554 VISIT LOCKED DATE TIME: PHYSICIAN: HARRISON ZEPEDA MD PHYSICIAN PAGER NO: ACTIVE RESOURCE: HARRISON ZEPEDA MD REASON FOR APPOINTMENT 1. BILATERAL SACROILIAC JOINT BLOCK HISTORY OF PRESENT ILLNESS GENERAL: -. FALL RISK SCREENING: SCREENING : ONE FALL REPORTED IN THE LAST YEAR WITH INJURY. PAIN SCREENING: PATIENT HAS A COMPLAINT OF ACUTE OR CHRONIC PAIN :YES LOCATION OF PAIN:MID BACK, LOW BACK, HAND(S), FEET INTENSITY OF PAIN (SCALE OF 1 TO 10):6 WHAT DOES YOUR PAIN FEEL LIKE: NUMB TINGLING DURATION:CONTINOUS, CONSTANT PAIN IS INCREASED BY:ACTIVITIES PAIN IS DECREASED BY:USE OF PAIN MEDICATIONS NURSING NOTE: -. PAIN CENTER INTAKE QUESTIONS: DO YOU HAVE A HISTORY OF MRSA? :YES TO HEAD, LEGS, STOMACH 2 YEARS AGO DO YOU TAKE A BLOOD THINNERS? :NO DO YOU HAVE ANY BLEEDING DISORDERS? :NO ANY NEW NUMBNESS OR WEAKNESS IN YOUR LEGS OR ARMS? :NO ANY PACEMAKER,DEFIBRILLATOR, OR DORSAL COLUMN STIMULATOR? :NO DO YOU HAVE ANY RASHES OR OPEN SORES? :NO ARE YOU ALLERGIC TO IV DYE? :NO ARE YOU DIABETIC? :NO ANY NEW PROBLEMS WITH YOUR MEDICATIONS? :NO HAVE YOU RECEIVED A VACCINE IN THE PAST 30 DAYS? :NO DO YOU PLAN TO RECEIVE A VACCINE IN THE NEXT 21 DAYS? :NO DO YOU TAKE ANY IMMUNOSUPPRESSIVE MEDICATIONS? :NO ANY HISTORY OF SEIZURES? :NO ANY HISTORY OF CARDIAC ISSUES OR EVENTS? :NO DO YOU HAVE ANY KIDNEY OR LIVER DISEASE? :NO DO YOU HAVE SLEEP APNEA? :YES DO YOU WEAR A CPAP?YES ANY RECENT HEAD INJURY? :NO DO YOU HAVE ANY NEW INFECTIONS? :NO IS THERE A CHANCE YOU COULD BE ? :NO ARE YOU BREAST FEEDING? :NO WHEN DID YOU LAST EAT? : -LAST NIGHT AT 9 PM WHEN DID YOU LAST DRINK? : -1200 WHAT DID YOU LAST DRINK? : WATER- NAME OF PERSON DRIVING YOU HOME? : VTC DO YOU HAVE ANY OTHER QUESTIONS OR CONCERNS? : - CURRENT MEDICATIONS TAKING ALBUTEROL SULFATE (2.5 MG/3ML) 0.083% NEBULIZATION SOLUTION 3 ML NEEDED INHALATION EVERY 8 HRS TAKING VENTOLIN HFA 90 MCG/ACT AEROSOL SOLUTION 1 PUFF NEEDED INHALATION EVERY 4 HRS TAKING LIDOCAINE HCL 3 % CREAM APPLY TO ABDOMEN 30 MINUTES PRIOR TO INFUSION EXTERNAL TAKING BOTOX 100 UNIT SOLUTION RECONSTITUTED DIRECTED INTRAMUSCULAR TAKING DICYCLOMINE HCL 20 MG TABLET TAKE ONE TABLET BY MOUTH @6AM AND TAKE ONE TABLET @NOON AND TAKE ONE TABLET @8PM ( NEEDED FOR PAIN) ORAL TAKING ACETAMINOPHEN 500 MG CAPSULE 1 CAPSULES NEEDED ORALLY EVERY 6 HRS PRN, NOTES: ONE WEEK AGO TAKING PROMETHAZINE HCL 25 MG TABLET 1 TAB ORAL 4 TIMES A DAY 6AM,12PM, 6PM, 8PM TAKING MULTIPLE VITAMIN - TABLET 1 TABLET ORALLY DAILY TAKING PRAZOSIN HCL 1 MG CAPSULE TAKE ONE CAPSULE BY MOUTH @8PM ORAL TAKING VYVANSE 70 MG CAPSULE (SCHEDULE II DRUG) TAKE ONE CAPSULE BY MOUTH EVERY MORNING - MAXIMUM DAILY DOSE ONE CAPSULE ORAL TAKING BUSPIRONE HCL 30 MG TABLET TAKE ONE TABLET BY MOUTH @6AM AND TAKE ONE TABLET BY MOUTH @8PM ORAL TAKING IMITREX 4 MG/0.5 ML 1 INJECTION SUBCUTANEOUS NEEDED TAKING MISOPROSTOL 200 MCG TABLET 1 TABLET ORALLY ONCE A DAY TAKING MOVANTIK 25 MG TABLET TAKE ONE TABLET BY MOUTH @6AM ORAL TAKING CUVITRU 4 GM/20ML SOLUTION DIRECTED SUBCUTANEOUS TAKING AIMOVIG 70 MG/ML SOLUTION AUTO-INJECTOR USE ONCE PER MONTH SUBCUTANEOUS TAKING FAMOTIDINE 40 MG TABLET TAKE ONE TABLET BY MOUTH @8PM ORAL TAKING VRAYLAR 4.5 MG CAPSULE TAKE ONE CAPSULE BY MOUTH AT BEDTIME ORALLY ONCE A DAY TAKING ESTRADIOL 0.025 MG/24HR PATCH WEEKLY APPLY ONE PATCH TOPICALLY ONCE PER WEEK TRANSDERMAL ONCE PER WEEK TAKING FERROUS SULFATE 324 (65 FE) MG TABLET DELAYED RELEASE 1 TABLET ORALLY ONCE A DAY TAKING AZELASTINE HCL 137 MCG/SPRAY SOLUTION 1 PUFF IN EACH NOSTRIL NASALLY TWICE A DAY TAKING FLUTICASONE PROPIONATE 50 MCG/ACT SUSPENSION 1 SPRAY IN EACH NOSTRIL NASALLY ONCE A DAY TAKING KLONOPIN 0.5 MG TABLET 1 TABLET AT BEDTIME ORALLY ONCE A DAY TAKING CETIRIZINE HCL 10 MG TABLET TAKE ONE TABLET BY MOUTH @6AM ( NEEDED) ORAL ONCE DAILY TAKING CHANTIX 1 MG TABLET DIRECTED ORALLY TWICE A DAY TAKING PANTOPRAZOLE SODIUM 40 MG TABLET DELAYED RELEASE TAKE ONE TABLET BY MOUTH @6AM ORAL ONCE A DAY TAKING FUROSEMIDE 20 MG TABLET TAKE ONE TABLET BY MOUTH @6AM TAKING BACLOFEN 5 MG TABLET 1 TABLET NEEDED ORALLY TWICE A DAY TAKING PREGABALIN 200 MG CAPSULE 1 CAPSULE ORAL THREE TIMES DAILY, NOTES: 12/19/2020 0630 TAKING TOPIRAMATE 50 MG TABLET TAKE ONE TABLET BY MOUTH TWICE DAILY BOTTLE ORAL TWICE DAILY TAKING NIFEDIPINE 20 MG CAPSULE TAKE ONE CAPSULE BY MOUTH @6AM ORAL DAILY NOT-TAKING NICOTROL 10 MG INHALER 1 CARTRIDGE NEEDED INHALATION 16 TIME(S) A DAY MEDICATION LIST REVIEWED AND RECONCILED WITH THE PATIENT PAST MEDICAL HISTORY COMMON VARIABLE IMMUNO DEFICIENCY DISEASE - DR. RIVERA CHRONIC RHINITIS/SINUSITIS, ALLERGIES HISTORY OF KIDNEY STONES - [facility] UROLOGY CHRONIC NECK/MID/LOW BACK PAIN - [facility] PAIN CENTER CHRONIC CONSTIPATION PEPTIC ULCER DISEASE, GERD, S/P GASTRIC BYPASS - DR. Renea BARRERA BIPOLAR, ANXIETY, DEPRESSION, ADHD - DR. PERRY MIGRAINE HEADACHES - CAREY NEURO, GETS BOTOX INJECTIONS SURGICAL MENOPAUSE S/P ELIA & BSO (2009) FOR ENDOMETRIOSIS; PRESCRIBED ESTRADIOL BY DR. ABEBE RAYNAUD'S SYNDROME ASTHMA, JOSEPH ON BIPAP - DR. SAI TIDWELL HISTORY OF IRON-DEFICIENCY ANEMIA TOBACCO USE; SMOKES 15 CIG/DAY HISTORY OF ALCOHOL USE DISORDER; DRINKS ALCOHOL 2 DAYS A WEEK, 2-4 DRINKS HISTORY OF DRUG ABUSE IN REMISSION; USED IV METH AND IV ECSTASY IN 08/2019 HEART MURMUR - ECHO 10/2017 BORDERLINE LVH, MILD LAE, SUBTLE AV SCLEROSIS, AORTIC SCLEROSIS, MILD AR, MILD MR HTN - [facility] [facility] HERNIA - DR. GARRETT GASTRIC PARESIS MALASMA, ROSACEA - [facility] DERM ALLERGIES MORPHINE SULFATE: TACHYCARDIA DILAUDID: TACHYCARDIA REGLAN: HIVES LAMICTAL: WELTS LATEX GLOVES: UNKNOWN SURGICAL HISTORY BACK SURGERY 1997 LAPAROTOMY X 4 FOR ENDOMETRIOSIS AT [facility], DR. CRISTOBAL 200S CHOLECYSTECTOMY 07/2008 LUMBAR LAMINECTOMY, [place] 02/2009 HYSTERECTOMY, APPENDECTOMY - FOR ENDOMETRIOSIS 12/2009 GASTRIC BYPASS (DR. CARTAGENA, [facility]) 01/2012 LAPAROSCOPY AND REMOVAL OF ADHESIONS (DR. BARRERA) 12/2012 CHEST TUBE ENDOSCOPY/COLONOSCOPY BLADDER REPAIR 10/2016 LAPROSCOPC SURGERY FOR ENDOMETRIOSIS / LYSIS OF ADHESIONS AND SCAR TISSUE (BOWEL NICKED IN OR). 12/19/17 EGD - ESOPHAGEAL PLAQUE - BIOPSY RESULTS NOT SENT TO US (DR. MILLER) 05/2018 REMOVAL CYSTS IN BILATERAL EARS REMOVAL OF NEEDLE FROM RIGHT FOOT EGD - WHITE PLAQUE, ESOPHAGITIS; DR. Renea BARRERA 11/2020 COLONOSCOPY - 1 POLYP, MINIMAL ERYTHEMA; DR. Renea BARRERA 11/2020 OPEN UMBILICAL/INCISIONAL HERNIA REPAIR-DR. GARRETT 04/13/2021 SOCIAL HISTORY GENERAL: TOBACCO USE ARE YOU A:CURRENT SMOKER HOW OFTEN DO YOU SMOKE CIGARETTES?EVERY DAY HOW SOON AFTER YOU WAKE UP DO YOU SMOKE YOUR FIRST CIGARETTE?AFTER 60 MIN HOW MANY CIGARETTES A DAY DO YOU SMOKE?11-20 ARE YOU INTERESTED IN QUITTING?READY TO QUIT WAITING FOR PRESCRIPTION FOR CHANTIX. PATIENT COUNSELED ON THE DANGERS OF TOBACCO USE AND URGED TO QUIT:03/20/2021 COUNSELED THE PATIENT ON TOBACCO USE, CESSATION [id number]/15/2021 VAPORNO E-CIGARETTEYES OCCASIONALLY SMOKING CESSATION INFORMATION GIVEN03/20/2021 PREVIOUS QUIT ATTEMPTS?YES, WITHIN THE LAST 6 MONTHS. LATEX QUESTIONNAIRE LATEX ALLERGY : HAVE YOU EVER DEVELOPED ANY TYPE OF REACTION AFTER HANDLING LATEX PRODUCTS SUCH RUBBER GLOVES, CONDOMS, DIAPHRAGMS, BALLOONS, SOCKS, OR UNDERWEAR?YES LATEX ALLERGY : HAVE YOU EVER DEVELOPED ANY TYPE OF REACTION DURING OR AFTER DENTAL APPOINTMENT, VAGINAL/RECTAL EXAMINATION, SURGICAL PROCEDURE, OR ANY OTHER EXPOSURE?YES - PLEASE INDICATE :RUBBER GLOVES, CONDOMS, UNDERWEAR, OTHER (DOCUMENT IN NOTES) BRAS - PLEASE INDICATE :VAGINAL EXAM DATE ASKED : 03/20/2021 LATEX RISK : HAVE YOU EVER HAD ANY DIFFICULTY BREATHING OR HIVES AFTER EATING OR HANDLING ANY FRUITS, OR VEGETABLES; SUCH KIWI, BANANAS, STONE FRUITS, OR CHESTNUTSNO LATEX RISK : DO YOU HAVE A PREVIOUS PERSONAL HISTORY OF MORE THAN NINE SURGERIES, SPINA BIFIDA, OR REPEATED CATHERIZATIONS? YES - PLEASE INDICATE : > 9 SURGERIES LATEX RISK : ARE YOU FREQUENTLY EXPOSED TO LATEX PRODUCTS IN YOUR OCCUPATION?NO ALCOHOL USE: OCCASIONAL. LUNG CANCER SCREENING SMOKING STATUS:CURRENT SMOKER BMI CARE GOAL FOLLOW-UP ABOVE NORMAL BMI FOLLOW-UPDIETARY MANAGEMENT EDUCATION, GUIDANCE, AND COUNSELING, DIETARY NEEDS EDUCATION, EXERCISE PROMOTION: STRENGTH TRAINING ALCOHOL SCREENING DID YOU HAVE A DRINK CONTAINING ALCOHOL IN THE PAST YEAR?YES HOW OFTEN DID YOU HAVE SIX OR MORE DRINKS ON ONE OCCASION IN THE PAST YEAR?NEVER (0 POINTS) HOW MANY DRINKS DID YOU HAVE ON A TYPICAL DAY WHEN YOU WERE DRINKING IN THE PAST YEAR?1 OR 2 (0 POINTS) HOW OFTEN DID YOU HAVE A DRINK CONTAINING ALCOHOL IN THE PAST YEAR?TWO TO THREE TIMES PER WEEK (3 POINTS) POINTS3 INTERPRETATIONPOSITIVE RECREATIONAL DRUG USE DRUG USE?NO CAFFEINE CAFFEINE USE?YES 6-8 CUPS COFFEE DAILY, SODA ON OCCASIONS SEXUAL HX HAD SEX IN THE LAST 12 MONTHS (VAGINAL, ORAL, OR ANAL)?NO LMP:2009 HAVE YOU EVER HAD AN STD?NO HIV / HEP-C SCREENING HIV TEST OFFERED TO PATIENT:YES DATE OFFERED:03/13/2017 TEST ACCEPTED:NO HEP-C TEST OFFERED TO PATIENT:NO REASON:PATIENT DECLINED UATSDIN [id number] FAITH LANGUAGE LANGUAGES SPOKEN:RWANDAN EDUCATION LEVEL OF EDUCATION:NOT FINISHED COLLEGE LEARNING BARRIERS / SPECIAL NEEDS CHANGE FROM LAST VISIT?NO BARRIERS TO LEARNING?NO HEARING IMPAIRED?YES VISION IMPAIRED?YES COGNITIVELY IMPAIRED?NO :CORRECTIVE LENSES READINESS TO LEARN?YES LEARNING PREFERENCES?NO LEARNING CAPABILITIES PRESENT?YES EMOTIONAL BARRIERS?NO SPECIAL DEVICES?NO PERSONAL BANKING REPRESENTATIVE NEEDED?NO DOMESTIC VIOLENCE DO YOU FEEL SAFE IN YOUR ENVIRONMENT?YES OCCUPATION: UNEMPLOYED. DIET: REGULAR. EXERCISE: NO REGULAR EXERCISE. MARITAL STATUS: SINGLE. OTHERS AT HOME: NONE. - PFS REFERRAL NEEDED?NO CLERGY REFERRAL NEEDED?NO PUBLIC HEALTH REFERRAL NEEDED?NO HAS THE PATIENT BEEN EDUCATED REGARDING HIS/HER PLAN OF CARE?YES HAS THE PATIENT BEEN EDUCATED REGARDING PAIN, THE RISK FOR PAIN, THE IMPORTANCE OF EFFECTIVE PAIN MANAGEMENT, AND THE PAIN ASSESSMENT PROCESS?YES ADVANCE DIRECTIVE ADVANCE DIRECTIVE DISCUSSED WITH PATIENT:YES 07/27/2020 PT DOES NOT HAVE ANY ADVANCED DIREDCTIVES AND SHE DECLINES INFORMATION ON HCP AT THIS TIME. AD HOSPITALIZATION/MAJOR DIAGNOSTIC PROCEDURE SURGERY RELATED [facility] IMHU ([facility]) 05/2012 ADMITTED TO [facility] 12/2015 [facility] - RUPTURED BLADDER 10/2016 [facility] 2 DAY HOSPITAL STAY DUE TO NICKED BOWEL 12/19/2017 PNEUMONIA 2015 & 2018 REHAB 2013 VITAL SIGNS WT 172.2 LBS, HT 67", BMI 26.97 INDEX, BP 128/80 MM HG, HR 103 /MIN, RR 18 /MIN, TEMP 97.6 F, OXYGEN SAT % 97%, SAFE IN ENV? (Y/N) YES, NA INITIALS , REVIEWED BY: QASIM. EXAMINATION GENERAL: THE PATIENT IS ALERT, ORIENTED TIMES THREE AND COOPERATIVE. LUNGS ARE CLEAR TO AUSCULTATION. HEART SHOWS REGULAR RHYTHM, NO MURMURS AND NO GALLOPS. ASSESSMENTS SACROILIITIS, NOT ELSEWHERE CLASSIFIED - M46.1 (PRIMARY) TREATMENT SACROILIITIS, NOT ELSEWHERE CLASSIFIED [facility] FLUORO GUIDANCE (PAIN)[id number] COMPLETION OF PROCEDURAL VISIT WHEN MEETS CRITERIA MED: PAIN ZOFRAN ODT TAB 4MG DISSOLVE ON TONGUE ONDANSETRONSCOTTIE,[place] 04/04/2021 2:46:49 PM > VERIFIED ANTHONY GARCIA 04/04/2021 2:49:40 PM > GIVEN MED: PAIN BENADRYL TAB 25MG ORALLY DIPHENHYDRAMINEDEVMARY ALICE,[place] 04/04/2021 2:47:23 PM > VERIFIED ANTHONY GARCIA 04/04/2021 2:50:10 PM > GIVEN MEDICATION: VALIUM TAB 10MG ORALLY (DIAZEPAM)SCOTTIE,[place] 04/04/2021 2:38:44 PM > VERIFIED ANTHONY GARCIA 04/04/2021 2:50:54 PM > GIVEN MEDICATION: OXYCODONE HCL TAB 10MG ORALLYDEPSE&G [facility],[place] 04/04/2021 2:39:12 PM > VERIFIED ANTHONY GARCIA 04/04/2021 2:51:26 PM > GIVEN OTHERS NOTES: PAT DONE 03/30/21. EM. PROCEDURES PAIN NURSING RECORD PROCEDURE IN ROOM 1310, PHYSICIAN IN ROOM 1518, START 1533, FINISH 1537, PHYSICIAN OUT OF ROOM 1538, OUT OF ROOM 1542, ECG NORMAL SINUS, PATIENT SHIELDED YES, SAFETY STRAP YES, PREP CHLOROPREP Alex GARCIA RN, DRESSING TEGADERM DR. ZEPEDA LOC: 1. ALERT, ORIENTED ANTHONY GARCIA 04/04/2021 3:19:29 PM > RESP: 1. REGULAR, NO DYSPNEA JOSEANTHONY 04/04/2021 3:19:37 PM > COLOR: 1. PINK JOSEANTHONY 04/04/2021 3:19:40 PM > SKIN: 1. WARM, DRY JOSEANTHONY 04/04/2021 3:19:48 PM > POSITION: 1. PRONE ANTHONY GARCIA 04/04/2021 3:20:03 PM > VITALS: IN ROOM 1510 118/67 70 98% ON RA 18 RESP 1545 117/64 67 97% ON RA 18 RESP NOTES Alex GARCIA RN MEDICATIONS FOR PROCEDURE DRAWN UP BY Arlet RUBIN RN , VERIFIED BY OPAL MARRUFO COMPLETION OF PROCEDURE APPOINTMENT: POST PAIN 2, DRESSING SITE DRY AND INTACT, IV N/A, GAIT STEADY, TEACHING COMPLETED, PATIENT ACKNOWLEDGES UNDERSTANDING YES PN SI PRE PROCEDURE DIAGNOSIS SACROILIITIS, SACROILIAC JOINT DYSFUNCTION POST PROCEDURE DIAGNOSIS SACROILIITIS, SACROILIAC JOINT DYSFUNCTION PROCEDURE BILATERAL SACROILIAC JOINT BLOCK SURGEON DR. HARRISON ZEPEDA MEDICAL AUTHORIZATION SPECIALIST NONE ANESTHESIA LOCAL PRE PROCEDURE NOTE THE PATIENT WITH HISTORY OF CHRONIC LOW BACK PAIN. I EVALUATED THE PATIENT AND REVIEWED THE CHART. I WENT OVER THE RISKS, ALTERNATIVES, AND BENEFITS ASSOCIATED WITH THIS PROCEDURE. THE PATIENT WOULD LIKE TO PROCEED AND GAVE CONSENT TO PERFORM THE PROCEDURE. THE PATIENT DENIES UNEXPLAINABLE WEIGHT LOSS, FEVER, CHILLS, OR NEW CHANGES IN URINARY OR BOWEL CONTROL. THE PATIENT IS COVID-19 NEGATIVE DESCRIPTION OF PROCEDURE THE PATIENT WAS BROUGHT TO THE PROCEDURE ROOM AND PLACED IN THE PRONE POSITION. THE LUMBOSACRAL AREA WAS CLEANED WITH CHLORAPREP SOLUTION AND DRAPED ASEPTICALLY. THE PROCEDURE WAS DONE UNDER STERILE CONDITIONS. A TIMEOUT WAS PERFORMED WHERE THE CONSENTED SITE WAS VERIFIED WITH EVERYONE IN THE ROOM. UNDER FLUOROSCOPIC GUIDANCE, THE TARGET POINT WAS SELECTED AT THE LOWER BORDER OF THE RIGHT AND LEFT SACROILIAC JOINT. TARGET POINT WAS SELECTED AFTER MEDIAL ROTATION AND TILT OF THE MAGNIFIER OR THE C-ARM. I CONFIRMED AGAIN THE SITE OF TARGET. LIDOCAINE 0.5% WAS USED TO NUMB THE SKIN AND THE SUBCUTANEOUS TISSUE BELOW IT. SPINAL NEEDLES, 22-GAUGE, WERE ADVANCED UNDER FLUOROSCOPIC GUIDANCE AND FOLLOWING PATIENT FEEDBACK UNTIL THE TARGETS WERE TOUCHED. THE POSITION OF THE NEEDLES WAS VERIFIED WITH AP AND OBLIQUE VIEWS. AFTER PROPER POSITION OF THE NEEDLES WAS ACHIEVED, ISOVUE-M DYE 30%, 0.1 ML, WAS INJECTED SHOWING ADEQUATE SPREAD OF THE DYE. KENALOG 20 MG WAS INJECTED AT EACH SITE. THEN, A SOLUTION OF 3.0 ML OF BUPIVACAINE 0.125% WAS USED TO FLUSH EACH NEEDLE. THE MEDICATIONS WERE VERIFIED WITH THE NURSE. THERE WAS NO EVIDENCE OF BLOOD, PARESTHESIA OR CEREBROSPINAL FLUID DURING THE PROCEDURE. THE PATIENT WAS SENT TO THE RECOVERY ROOM. THE PATIENT WAS MOVING THE EXTREMITIES AND DOING WELL. THERE WERE NO COMPLICATIONS DURING THE PROCEDURE. ESTIMATED BLOOD LOSS WAS LESS THAN 5 ML. FLUOROSCOPIC TIME WAS 15 SECONDS. POST PROCEDURE NOTE THE PROCEDURE DONE WAS DISCUSSED WITH THE PATIENT. THE PATIENT WILL BE SEEN IN A FOLLOW UP IN THE NEXT FEW WEEKS. I AM LOOKING FOR LONG LASTING PAIN RELIEF FOR THE PATIENT WITH THIS INTERVENTION. INSTRUCTIONS WERE GIVEN, QUESTIONS WERE ANSWERED, AND THE PATIENT EXPRESSED UNDERSTANDING AND AGREES WITH THE PLAN. I, SANJUANA SERNA, DOCUMENTED THE ABOVE INFORMATION ACTING A SCRIBE FOR DR. ZEPEDA. I HAVE REVIEWED THE ABOVE DOCUMENT, WRITTEN BY SANJUANA SERNA, DRAFTER (CAD) ELECTRICAL, AND I VERIFY THAT IT IS ACCURATE PROCEDURE CODES 60424 INJECT SACROILIAC JOINT, MODIFIERS: 50 DISPOSITION & COMMUNICATION FOLLOW UP FOLLOW UP WITH POND SUPERVISOR (REASON: POST BILATERAL SACROILIAC JOINT BLOCK) ELECTRONICALLY SIGNED BY HARRISON ZEPEDA MD, MD ON 04/04/2021 AT 04:12 PM EDT DISCLAIMER : THIS IS A VISIT SUMMARY EXTRACTED FROM THE [employer] CHART. IT IS NOT A COPY OF THE [employer] PROGRESS NOTE. GELACIO
== END ==
LOC: M PAIN 14:00
PROVIDERS: ATTEND Anesthesiology
DX: M46.1 Sacroiliitis, not elsewhere classified (principal); G47.33 Obstructive sleep apnea (adult) (pediatric); J45.909 Unspecified asthma, uncomplicated; K21.9 Gastro-esophageal reflux disease without esophagitis; D50.9 Iron deficiency anemia, unspecified; G43.909 Migraine, unspecified, not intractable, without status migrainosus; F17.210 Nicotine dependence, cigarettes, uncomplicated; Z86.14 Personal history of Methicillin resistant Staphylococcus aureus infection; Z86.59 Personal history of other mental and behavioral disorders; Z98.84 Bariatric surgery status; Z88.5 Allergy status to narcotic agent; Z88.8 Allergy status to other drugs, medicaments and biological substances; Z91.040 Latex allergy status; Z79.899 Other long term (current) drug therapy
CPT/HCPCS: 27096; J3301; Q0162; Q9967

== ENCOUNTER → 2021-04-09 | Outpatient (CLI) | payer OTHER ==
[~2021-04-09] MED LIST changes: -BUPIVACAINE HCL 0.25% 30ML VIAL As Ordered ONE; -ISOVUE-M 300 61% 15ML VIAL As Ordered ONE; -LIDOCAINE 1% SDV 30ML VIAL As Ordered ONE; -ONDANSETRON 4 MG ORAL DISINTEGRATING TAB As Ordered ONE; -TRIAMCINOLONE ACETONIDE SUSP 40 MG/ML VIAL (J3301) As Ordered ONE; -diazePAM 5MG TABLET As Ordered ONE; -diphenhydrAMINE 25MG CAP As Ordered ONE; -oxyCODONE 5MG TAB As Ordered ONE
== END ==
LOC: M LABSMTC 10:55
PROVIDERS: ATTEND Anesthesiology
DX: Z01.812 Encounter for preprocedural laboratory examination (principal); Z20.822 Contact with and (suspected) exposure to COVID-19

== ENCOUNTER 2021-04-13 06:08 | Day surgery (SDC) | payer OTHER ==
[~2021-04-13] VITALS: Ht 170.2 cm; Wt 80.2 kg
[~2021-04-13 06:08] MED LIST changes: -DICY20TA11 PO; +DICY20TA20 PO; +DOXY-443 PO; -DOXY1CAP62 PO; +LOSA100T45 PO; -LOSA100T50 PO; +LOSA25TA13 PO; -LOSA25TA14 PO; +LR 1,000 ML IV ONE; +ceFAZolin SOD 2 GM in IV 1 EA IV ONE
[2021-04-13] MEDS ORDERED: BUPIVACAINE HCL 0.25% 30ML VIAL As Ordered ONE (07:14)
[2021-04-13] MEDS ORDERED: LIDOCAINE 1% SDV 30ML VIAL As Ordered ONE (07:14)
[2021-04-13] MEDS ORDERED: CelecoXIB 400 MG CAP PO ONE (07:15)
[2021-04-13] MEDS ORDERED: propofoL 200 MG/20 ML VIAL As Ordered ONE (07:17)
[2021-04-13] MEDS ORDERED: MIDAZOLAM INJ 2MG/2ML VIAL (J2250 PER 1MG) As Ordered ONE (07:17)
[2021-04-13] MEDS ORDERED: LIDOCAINE 2% 100MG/5ML SDV (FOR ANES.) As Ordered ONE (07:17)
[2021-04-13] MEDS ORDERED: ROCURONIUM BROMIDE 50 MG/5 ML VIAL As Ordered ONE (07:17)
[2021-04-13] MEDS ORDERED: fentaNYL 250 MCG/5 ML INJECTION As Ordered ONE (07:17)
[2021-04-13] MEDS ORDERED: BUPIVACAINE LIPOSOME/PF 1.3% 20ML VIAL (13.3MG/ML)(EXPAREL)(C9290 PER1MG) As Ordered ONE (07:56)
[2021-04-13] MEDS ORDERED: BUPIVACAINE HCL 0.25% 10ML VIAL As Ordered ONE (07:56)
[2021-04-13] MEDS ORDERED: ONDANSETRON 4MG/2ML VIAL As Ordered ONE (08:00)
[2021-04-13] MEDS ORDERED: ACETAMINOPHEN 1000MG 100ML IV BTL (OFIRMEV) (J0131 PER 10MG) As Ordered ONE (08:00)
[2021-04-13] MEDS ORDERED: dexameTHASONE 4 MG/ML 1ML VIAL (J1100 PER 1MG) As Ordered ONE (08:00)
[2021-04-13] MEDS ORDERED: LR 1,000 ML IV SCH (09:45)
[2021-04-13] MEDS ORDERED: PERCOCET 5MG/325MG TAB PO PRN ×3 (09:45→09:50)
[2021-04-13] MEDS ORDERED: ONDANSETRON 4MG/2ML VIAL IV PRN (09:45)
[2021-04-13] MEDS: fentaNYL 100 MCG/2 ML INJECTION IV PRN ×2 (10:28→10:36)
[2021-04-13 12:00] VITALS: BP 118/72
[2021-10-12] MEDS ORDERED: OXYB5TAB10 PO (12:47)
[2021-10-12] MEDS ORDERED: AMIT24CA7 PO (12:47)
[2021-11-12] MEDS ORDERED: ESTR1TAB PO (13:26)
[2021-11-12] MEDS ORDERED: MELO7.5T35 PO (13:26)
[2021-11-12] MEDS ORDERED: NYST50SS PO (13:26)
[2021-11-12] MEDS ORDERED: CYCL5TAB PO (13:26)
[2021-11-12] MEDS ORDERED: TAMS1CAP17 PO (13:26)
== END 2021-04-13 12:25 | disposition home or self-care (01) ==
LOC: M SDC 06:08
PROVIDERS: ATTEND Surgery
DX: K43.0 Incisional hernia with obstruction, without gangrene (principal); K21.9 Gastro-esophageal reflux disease without esophagitis; D64.9 Anemia, unspecified; D80.1 Nonfamilial hypogammaglobulinemia; D83.9 Common variable immunodeficiency, unspecified; Z98.84 Bariatric surgery status; Z86.14 Personal history of Methicillin resistant Staphylococcus aureus infection; F31.9 Bipolar disorder, unspecified; G43.909 Migraine, unspecified, not intractable, without status migrainosus; J45.909 Unspecified asthma, uncomplicated; G47.30 Sleep apnea, unspecified; R32 Unspecified urinary incontinence; G62.9 Polyneuropathy, unspecified; N32.89 Other specified disorders of bladder; F10.21 Alcohol dependence, in remission; Z87.442 Personal history of urinary calculi; F19.11 Other psychoactive substance abuse, in remission; Z88.8 Allergy status to other drugs, medicaments and biological substances; Z88.5 Allergy status to narcotic agent; Z91.040 Latex allergy status; Z79.899 Other long term (current) drug therapy; Z79.890 Hormone replacement therapy; F17.210 Nicotine dependence, cigarettes, uncomplicated
CPT/HCPCS: 49561; 49568; 88302; C1781; C9290; J0131; J0690; J1100; J2250; J2405; J3010

== ENCOUNTER → 2021-04-18 | Outpatient (CLI) | payer OTHER ==
[~2021-04-18] MED LIST changes: +DICY20TA11 PO; -DICY20TA20 PO; -DOXY-443 PO; +DOXY1CAP62 PO; -LOSA100T45 PO; +LOSA100T50 PO; -LOSA25TA13 PO; +LOSA25TA14 PO; -LR 1,000 ML IV ONE; -ceFAZolin SOD 2 GM in IV 1 EA IV ONE
--- NOTE | 2021-04-20 05:14 | ECWPNPC ---
PATIENT NAME: ADELA ALMONTE : 1980 GENDER: FEMALE VISIT DATE: 04/18/2021 DISCHARGE DATE: 04/18/21 1133 VISIT LOCKED DATE TIME: PHYSICIAN: RAVEN CORDON PHYSICIAN PAGER NO: ACTIVE RESOURCE: RAVEN CORDON REASON FOR APPOINTMENT 1. POST BILATERAL SACROILIAC JOINT BLOCK HISTORY OF PRESENT ILLNESS GENERAL: HPI 41-YEAR-OLD FEMALE IN FOR POST BILATERAL SACROILIAC JOINT BLOCK FOLLOW-UP. SHE RATES HER PAIN CURRENTLY AT A 3 OUT OF 10. PATIENT FELT THE PROCEDURE WAS SUCCESSFUL RATING HER PAIN PREPROCEDURE AT A 7 OUT OF 10 AND POST PROCEDURE AT A 3 OUT OF 10. SHE FURTHER STATES THE PROCEDURE CONTINUES TO HELP HER TODAY.. -. FALL RISK SCREENING: SCREENING : NO FALLS REPORTED IN THE LAST YEAR. PAIN SCREENING: PATIENT HAS A COMPLAINT OF ACUTE OR CHRONIC PAIN :YES LOCATION OF PAIN:LOW BACK INTENSITY OF PAIN (SCALE OF 1 TO 10):3 WHAT DOES YOUR PAIN FEEL LIKE:ACHING, INTERMITTENT, SHARP DURATION:INTERMITTENT, AWAKENS FROM SLEEP PAIN IS INCREASED BY:ACTIVITIES, PROLONGED STANDING PAIN IS DECREASED BY:USE OF PAIN MEDICATIONS ICE AND HEAT NURSING NOTE: -. CURRENT MEDICATIONS TAKING ALBUTEROL SULFATE (2.5 MG/3ML) 0.083% NEBULIZATION SOLUTION 3 ML NEEDED INHALATION EVERY 8 HRS TAKING VENTOLIN HFA 90 MCG/ACT AEROSOL SOLUTION 1 PUFF NEEDED INHALATION EVERY 4 HRS TAKING LIDOCAINE HCL 3 % CREAM APPLY TO ABDOMEN 30 MINUTES PRIOR TO INFUSION EXTERNAL TAKING BOTOX 100 UNIT SOLUTION RECONSTITUTED DIRECTED INTRAMUSCULAR TAKING DICYCLOMINE HCL 20 MG TABLET TAKE ONE TABLET BY MOUTH @6AM AND TAKE ONE TABLET @NOON AND TAKE ONE TABLET @8PM ( NEEDED FOR PAIN) ORAL TAKING ACETAMINOPHEN 500 MG CAPSULE 1 CAPSULES NEEDED ORALLY EVERY 6 HRS PRN, NOTES: ONE WEEK AGO TAKING PROMETHAZINE HCL 25 MG TABLET 1 TAB ORAL 4 TIMES A DAY 6AM,12PM, 6PM, 8PM TAKING MULTIPLE VITAMIN - TABLET 1 TABLET ORALLY DAILY TAKING PRAZOSIN HCL 1 MG CAPSULE TAKE ONE CAPSULE BY MOUTH @8PM ORAL TAKING VYVANSE 70 MG CAPSULE (SCHEDULE II DRUG) TAKE ONE CAPSULE BY MOUTH EVERY MORNING - MAXIMUM DAILY DOSE ONE CAPSULE ORAL TAKING BUSPIRONE HCL 30 MG TABLET TAKE ONE TABLET BY MOUTH @6AM AND TAKE ONE TABLET BY MOUTH @8PM ORAL TAKING IMITREX 4 MG/0.5 ML 1 INJECTION SUBCUTANEOUS NEEDED TAKING MISOPROSTOL 200 MCG TABLET 1 TABLET ORALLY ONCE A DAY TAKING MOVANTIK 25 MG TABLET TAKE ONE TABLET BY MOUTH @6AM ORAL TAKING CUVITRU 4 GM/20ML SOLUTION DIRECTED SUBCUTANEOUS TAKING AIMOVIG 70 MG/ML SOLUTION AUTO-INJECTOR USE ONCE PER MONTH SUBCUTANEOUS TAKING FAMOTIDINE 40 MG TABLET TAKE ONE TABLET BY MOUTH @8PM ORAL TAKING VRAYLAR 4.5 MG CAPSULE TAKE ONE CAPSULE BY MOUTH AT BEDTIME ORALLY ONCE A DAY TAKING ESTRADIOL 0.025 MG/24HR PATCH WEEKLY APPLY ONE PATCH TOPICALLY ONCE PER WEEK TRANSDERMAL ONCE PER WEEK TAKING FERROUS SULFATE 324 (65 FE) MG TABLET DELAYED RELEASE 1 TABLET ORALLY ONCE A DAY TAKING AZELASTINE HCL 137 MCG/SPRAY SOLUTION 1 PUFF IN EACH NOSTRIL NASALLY TWICE A DAY TAKING FLUTICASONE PROPIONATE 50 MCG/ACT SUSPENSION 1 SPRAY IN EACH NOSTRIL NASALLY ONCE A DAY TAKING KLONOPIN 0.5 MG TABLET 1 TABLET AT BEDTIME ORALLY ONCE A DAY TAKING CETIRIZINE HCL 10 MG TABLET TAKE ONE TABLET BY MOUTH @6AM ( NEEDED) ORAL ONCE DAILY TAKING CHANTIX 1 MG TABLET DIRECTED ORALLY TWICE A DAY TAKING PANTOPRAZOLE SODIUM 40 MG TABLET DELAYED RELEASE TAKE ONE TABLET BY MOUTH @6AM ORAL ONCE A DAY TAKING FUROSEMIDE 20 MG TABLET TAKE ONE TABLET BY MOUTH @6AM TAKING BACLOFEN 5 MG TABLET 1 TABLET NEEDED ORALLY TWICE A DAY TAKING PREGABALIN 200 MG CAPSULE 1 CAPSULE ORAL THREE TIMES DAILY, NOTES: 12/19/2020 0630 TAKING TOPIRAMATE 50 MG TABLET TAKE ONE TABLET BY MOUTH TWICE DAILY BOTTLE ORAL TWICE DAILY TAKING NIFEDIPINE 20 MG CAPSULE TAKE ONE CAPSULE BY MOUTH @6AM ORAL DAILY TAKING TAMSULOSIN HCL 0.4 MG CAPSULE 1 CAPSULE ORALLY ONCE A DAY TAKING OXYCODONE-ACETAMINOPHEN 5-325 MG TABLET 1 TABLET NEEDED ORALLY EVERY 6 HRS NOT-TAKING NICOTROL 10 MG INHALER 1 CARTRIDGE NEEDED INHALATION 16 TIME(S) A DAY MEDICATION LIST REVIEWED AND RECONCILED WITH THE PATIENT PAST MEDICAL HISTORY COMMON VARIABLE IMMUNO DEFICIENCY DISEASE - DR. RIVERA CHRONIC RHINITIS/SINUSITIS, ALLERGIES HISTORY OF KIDNEY STONES - [facility] CHRONIC NECK/MID/LOW BACK PAIN - [facility] CHRONIC CONSTIPATION PEPTIC ULCER DISEASE, GERD, S/P GASTRIC BYPASS - DR. Renea BARRERA BIPOLAR, ANXIETY, DEPRESSION, ADHD - DR. PERRY MIGRAINE HEADACHES - CAREY NEURO, GETS BOTOX INJECTIONS SURGICAL MENOPAUSE S/P ELIA & BSO (2009) FOR ENDOMETRIOSIS; PRESCRIBED ESTRADIOL BY DR. ABEBE RAYNAUD'S SYNDROME ASTHMA, JOSEPH ON BIPAP - DR. SAI TIDWELL HISTORY OF IRON-DEFICIENCY ANEMIA TOBACCO USE; SMOKES 15 CIG/DAY HISTORY OF ALCOHOL USE DISORDER; DRINKS ALCOHOL 2 DAYS A WEEK, 2-4 DRINKS HISTORY OF DRUG ABUSE IN REMISSION; USED IV METH AND IV ECSTASY IN 08/2019 HEART MURMUR - ECHO 10/2017 BORDERLINE LVH, MILD LAE, SUBTLE AV SCLEROSIS, AORTIC SCLEROSIS, MILD AR, MILD MR HTN - [place] VENTRAL HERNIA - DR. GARRETT GASTRIC PARESIS MALASMA, ROSACEA - [facility] DERM ALLERGIES MORPHINE SULFATE: TACHYCARDIA DILAUDID: TACHYCARDIA REGLAN: HIVES LAMICTAL: WELTS LATEX GLOVES: UNKNOWN SURGICAL HISTORY BACK SURGERY 1997 LAPAROTOMY X 4 FOR ENDOMETRIOSIS AT [facility], DR. CRISTOBAL 200S CHOLECYSTECTOMY 07/2008 LUMBAR LAMINECTOMY, [place] 02/2009 HYSTERECTOMY, APPENDECTOMY - FOR ENDOMETRIOSIS 12/2009 GASTRIC BYPASS (DR. CARTAGENA, [facility]) 01/2012 LAPAROSCOPY AND REMOVAL OF ADHESIONS (DR. BARRERA) 12/2012 CHEST TUBE ENDOSCOPY/COLONOSCOPY BLADDER REPAIR 10/2016 LAPROSCOPC SURGERY FOR ENDOMETRIOSIS / LYSIS OF ADHESIONS AND SCAR TISSUE (BOWEL NICKED IN OR). 12/19/17 EGD - ESOPHAGEAL PLAQUE - BIOPSY RESULTS NOT SENT TO US (DR. MILLER) 05/2018 REMOVAL CYSTS IN BILATERAL EARS REMOVAL OF NEEDLE FROM RIGHT FOOT EGD - WHITE [place], ESOPHAGITIS; DR. Renea BARRERA 11/2020 COLONOSCOPY - 1 POLYP, MINIMAL ERYTHEMA; DR. Renea BARRERA 11/2020 OPEN UMBILICAL/INCISIONAL HERNIA REPAIR-DR. GARRETT 04/13/2021 CYSTO 04/2021 VENTRAL HERNIA 04/13/2021 SOCIAL HISTORY GENERAL: TOBACCO USE ARE YOU A:CURRENT SMOKER ARE YOU INTERESTED IN QUITTING?READY TO QUIT WAITING FOR PRESCRIPTION FOR CHANTIX. PREVIOUS QUIT ATTEMPTS?YES, WITHIN THE LAST 6 MONTHS. COUNSELED THE PATIENT ON TOBACCO USE, CESSATION [id number]/14/2021 HOW MANY CIGARETTES A DAY DO YOU SMOKE?11-20 HOW SOON AFTER YOU WAKE UP DO YOU SMOKE YOUR FIRST CIGARETTE?AFTER 60 MIN HOW OFTEN DO YOU SMOKE CIGARETTES?EVERY DAY PATIENT COUNSELED ON THE DANGERS OF TOBACCO USE AND URGED TO QUIT:04/18/2021 SMOKING CESSATION INFORMATION GIVEN03/20/2021 VAPORNO E-CIGARETTEYES OCCASIONALLY LATEX QUESTIONNAIRE LATEX ALLERGY : HAVE YOU EVER DEVELOPED ANY TYPE OF REACTION AFTER HANDLING LATEX PRODUCTS SUCH RUBBER GLOVES, CONDOMS, DIAPHRAGMS, BALLOONS, SOCKS, OR UNDERWEAR?YES - PLEASE INDICATE :RUBBER GLOVES, CONDOMS, UNDERWEAR, OTHER (DOCUMENT IN NOTES) BRAS LATEX ALLERGY : HAVE YOU EVER DEVELOPED ANY TYPE OF REACTION DURING OR AFTER DENTAL APPOINTMENT, VAGINAL/RECTAL EXAMINATION, SURGICAL PROCEDURE, OR ANY OTHER EXPOSURE?YES - PLEASE INDICATE :VAGINAL EXAM LATEX RISK : HAVE YOU EVER HAD ANY DIFFICULTY BREATHING OR HIVES AFTER EATING OR HANDLING ANY FRUITS, OR VEGETABLES; SUCH KIWI, BANANAS, STONE FRUITS, OR CHESTNUTSNO LATEX RISK : DO YOU HAVE A PREVIOUS PERSONAL HISTORY OF MORE THAN NINE SURGERIES, SPINA BIFIDA, OR REPEATED CATHERIZATIONS? YES - PLEASE INDICATE : > 9 SURGERIES LATEX RISK : ARE YOU FREQUENTLY EXPOSED TO LATEX PRODUCTS IN YOUR OCCUPATION?NO DATE ASKED : 04/18/2021 ALCOHOL USE: OCCASIONAL. LUNG CANCER SCREENING SMOKING STATUS:CURRENT SMOKER BMI CARE GOAL FOLLOW-UP ABOVE NORMAL BMI FOLLOW-UPDIETARY MANAGEMENT EDUCATION, GUIDANCE, AND COUNSELING, DIETARY NEEDS EDUCATION, EXERCISE PROMOTION: STRENGTH TRAINING ALCOHOL SCREENING DID YOU HAVE A DRINK CONTAINING ALCOHOL IN THE PAST YEAR?YES HOW OFTEN DID YOU HAVE SIX OR MORE DRINKS ON ONE OCCASION IN THE PAST YEAR?NEVER (0 POINTS) HOW MANY DRINKS DID YOU HAVE ON A TYPICAL DAY WHEN YOU WERE DRINKING IN THE PAST YEAR?1 OR 2 (0 POINTS) HOW OFTEN DID YOU HAVE A DRINK CONTAINING ALCOHOL IN THE PAST YEAR?TWO TO THREE TIMES PER WEEK (3 POINTS) POINTS3 INTERPRETATIONPOSITIVE RECREATIONAL DRUG USE DRUG USE?NO CAFFEINE CAFFEINE USE?YES 6-8 CUPS COFFEE DAILY, SODA ON OCCASIONS SEXUAL HX HAD SEX IN THE LAST 12 MONTHS (VAGINAL, ORAL, OR ANAL)?NO LMP:2009 HAVE YOU EVER HAD AN STD?NO HIV / HEP-C SCREENING HIV TEST OFFERED TO PATIENT:YES DATE OFFERED:03/13/2017 TEST ACCEPTED:NO HEP-C TEST OFFERED TO PATIENT:NO REASON:PATIENT DECLINED MORMON DNELEUSL67 BAHAI LANGUAGE LANGUAGES SPOKEN:RUSSIAN EDUCATION LEVEL OF EDUCATION:NOT FINISHED COLLEGE LEARNING BARRIERS / SPECIAL NEEDS CHANGE FROM LAST VISIT?NO BARRIERS TO LEARNING?NO HEARING IMPAIRED?YES VISION IMPAIRED?YES :CORRECTIVE LENSES COGNITIVELY IMPAIRED?NO READINESS TO LEARN?YES LEARNING PREFERENCES?NO LEARNING CAPABILITIES PRESENT?YES EMOTIONAL BARRIERS?NO SPECIAL DEVICES?NO CHAINSTITCH HEMMER NEEDED?NO DOMESTIC VIOLENCE DO YOU FEEL SAFE IN YOUR ENVIRONMENT?YES OCCUPATION: UNEMPLOYED. DIET: REGULAR. EXERCISE: NO REGULAR EXERCISE. MARITAL STATUS: SINGLE. OTHERS AT HOME: NONE. - PFS REFERRAL NEEDED?NO CLERGY REFERRAL NEEDED?NO PUBLIC HEALTH REFERRAL NEEDED?NO HAS THE PATIENT BEEN EDUCATED REGARDING HIS/HER PLAN OF CARE?YES HAS THE PATIENT BEEN EDUCATED REGARDING PAIN, THE RISK FOR PAIN, THE IMPORTANCE OF EFFECTIVE PAIN MANAGEMENT, AND THE PAIN ASSESSMENT PROCESS?YES ADVANCE DIRECTIVE ADVANCE DIRECTIVE DISCUSSED WITH PATIENT:YES 07/27/2020 PT DOES NOT HAVE ANY ADVANCED DIREDCTIVES AND SHE DECLINES INFORMATION ON HCP AT THIS TIME. AD HOSPITALIZATION/MAJOR DIAGNOSTIC PROCEDURE SURGERY RELATED [facility] ([facility]) 05/2012 ADMITTED TO [facility] 12/2015 [facility] - [facility]ED BLADDER 10/2016 [facility] 2 DAY HOSPITAL STAY DUE TO NICKED BOWEL 12/19/2017 PNEUMONIA 2015 & 2017 REHAB 2014 REVIEW OF SYSTEMS CONSTITUTIONAL: ANY RECENT FEVER NO . CHILLS NO . WEIGHT CHANGE OF UNKNOWN REASONS NO . GASTROENTEROLOGY: NEW UNEXPLAINABLE CHANGES IN BOWEL CONTROL NO . CONSTIPATION NO . GENITOURINARY: ANY NEW CHANGE IN BLADDER CONTROL? NO . NEUROLOGY: NEW ONSET DIZZINESS OR NEUROLOGICAL CHANGES NOT MENTIONED NO . NEW NUMBNESS OR PAIN PATTERNS NOT MENTIONED AND PERTINENT TO TODAY'S VISIT NO . CARDIOLOGY: NEW CHEST PRESSURE NO . PATIENT DENIES NO . RESPIRATORY: UNEXPLAINABLE COUGH NO . NEW SHORTNESS OF BREATH NO . VITAL SIGNS WT 183.6 LBS, HT 67", BMI 28.75 INDEX, BP 134/81 MM HG, HR 77 /MIN, RR 18 /MIN, TEMP 97.1 F, OXYGEN SAT % 97%, SAFE IN ENV? (Y/N) YES, REVIEWED BY: RETA ARROYO MA. EXAMINATION GENERAL EXAMINATION: GENERALNO ACUTE DISTRESS, WELL NOURISHED AND HYDRATED. PSYCHAPPROPRIATE MOOD AND AFFECT . LUNGS:CLEAR TO AUSCULTATION BILATERALLY, NO WHEEZES, RHONCHI, RALES. HEART:NO MURMURS, REGULAR RATE AND RHYTHM. ASSESSMENTS OTHER CHRONIC PAIN - G89.29 (PRIMARY) SACROILIITIS, NOT ELSEWHERE CLASSIFIED - M46.1 SPONDYLOSIS WITHOUT MYELOPATHY OR RADICULOPATHY, LUMBOSACRAL REGION - M47.817 TREATMENT OTHER CHRONIC PAIN PAIN PROCEDURE LOGDATE OF GUMIZYGEZ78/30/2021ROCEDURE:BILATERAL SACROILIAC JOINT BLOCKAMOUNT OF PRE SEDATEZOFRAN ODT 4MG; BENADRYL 25MG; VALIUM 10MG; OXYCODONE 10MGRESULT:PREPROCEDURE 7 OUT OF 10 POST PROCEDURE 3 OUT OF 10. CONTINUES TO HELP TODAY. SACROILIITIS, NOT ELSEWHERE CLASSIFIED NOTES: 41-YEAR-OLD FEMALE IN FOR POST BILATERAL SACROILIAC JOINT BLOCK FOLLOW-UP. GIVEN PRESENTING SYMPTOMS RECOMMEND FOLLOW-UP IN 2 MONTHS. PATIENT HAS EXPRESSED UNDERSTANDING OF AND WAS IN AGREEMENT WITH TREATMENT PLAN. GIVEN TIME TO ASK QUESTIONS AND EXPRESS CONCERNS. [employer]STOP REGISTRY REVIEWED AND DEMONSTRATES COMPLLIANCE. (REF # [id number] ). SPONDYLOSIS WITHOUT MYELOPATHY OR RADICULOPATHY, LUMBOSACRAL REGION REFILL BACLOFEN TABLET, 5 MG, 1 TABLET NEEDED, ORALLY, TWICE A DAY, 90 DAYS, 180 TABLET, REFILLS 1 PROCEDURE CODES FA211 ESTABILISHED PATIENT [facility] CHARGE DISPOSITION & COMMUNICATION FOLLOW UP 2 MONTHS (REASON: SACROILIITIS) ELECTRONICALLY SIGNED BY JAKUB VILLEDA ON 04/19/2021 AT 09:33 AM EDT DISCLAIMER : THIS IS A VISIT SUMMARY EXTRACTED FROM THE [employer] CHART. IT IS NOT A COPY OF THE [employer] PROGRESS NOTE. GELACIO
== END ==
LOC: M PAIN 10:45
PROVIDERS: ATTEND Family Medicine
DX: M46.1 Sacroiliitis, not elsewhere classified (principal); M47.817 Spondylosis without myelopathy or radiculopathy, lumbosacral region; G89.29 Other chronic pain; K21.9 Gastro-esophageal reflux disease without esophagitis; G43.909 Migraine, unspecified, not intractable, without status migrainosus; J45.909 Unspecified asthma, uncomplicated; G47.33 Obstructive sleep apnea (adult) (pediatric); F17.210 Nicotine dependence, cigarettes, uncomplicated; Z98.84 Bariatric surgery status; Z86.59 Personal history of other mental and behavioral disorders; Z88.5 Allergy status to narcotic agent; Z88.8 Allergy status to other drugs, medicaments and biological substances; Z91.040 Latex allergy status; Z79.899 Other long term (current) drug therapy

== ENCOUNTER → 2021-05-03 | Outpatient (REF) | payer OTHER ==
[2021-05-03 18:23] LABS: APPEARANCE, URINE CLEAR (CLEAR); BACTERIA, URINE AUTO NEGATIVE (NEGATIVE); BILIRUBIN, URINE AUTO NEGATIVE (NEGATIVE); BLOOD, URINE BLOOD 1+ (NEGATIVE); CALCIUM OXALATE CRYSTALS SMALL; COLOR, URINE YELLOW (YELLOW); GLUCOSE, URINE (UA) AUTO NEGATIVE (NEGATIVE); KETONE, URINE AUTO NEGATIVE (NEGATIVE); LEUKOCYTE ESTERASE, URINE AUTO TRACE (NEGATIVE); NITRITE, URINE AUTO NEGATIVE (NEGATIVE); PROTEIN, URINE AUTO NEGATIVE (NEGATIVE); RBC, URINE AUTO 2 /HPF (0-3); SQUAMOUS EPITHELIAL CELL UR AU 0 /HPF (0-6); UROBILINOGEN, URINE AUTO 0.2 mg/dL (0.0-2.0); WBC, URINE AUTO 3 /HPF (0-3)
== END ==
LOC: M SMT 16:51
PROVIDERS: ATTEND Urology
DX: R30.0 Dysuria (principal)

== ENCOUNTER → 2021-05-10 | Outpatient (REF) | payer OTHER ==
[2021-05-10 14:02] LABS: APPEARANCE, URINE CLEAR (CLEAR); BACTERIA, URINE AUTO NEGATIVE (NEGATIVE); BILIRUBIN, URINE AUTO NEGATIVE (NEGATIVE); BLOOD, URINE BLOOD 1+ (NEGATIVE); COLOR, URINE STRAW (YELLOW); GLUCOSE, URINE (UA) AUTO NEGATIVE (NEGATIVE); KETONE, URINE AUTO NEGATIVE (NEGATIVE); LEUKOCYTE ESTERASE, URINE AUTO TRACE (NEGATIVE); NITRITE, URINE AUTO NEGATIVE (NEGATIVE); PROTEIN, URINE AUTO NEGATIVE (NEGATIVE); RBC, URINE AUTO 1 /HPF (0-3); SPECIFIC GRAVITY URINE AUTO 1.003 (1.002-1.035); SQUAMOUS EPITHELIAL CELL UR AU 0 /HPF (0-6); UROBILINOGEN, URINE AUTO 0.2 mg/dL (0.0-2.0); WBC, URINE AUTO 2 /HPF (0-3)
== END ==
LOC: M SMT 13:09
PROVIDERS: ATTEND Urology
DX: R30.0 Dysuria (principal)

== ENCOUNTER → 2021-05-23 | Outpatient (REF) ==
--- NOTE | 2021-05-23 11:06 | REP ---
INDICATION: ARTHRITIS COMPARISON: None. TECHNIQUE: AP, lateral, coned-down views of the lumbar spine. FINDINGS: Alignment and lordosis maintained without acute fracture/compression injury or subluxation. Lateral view best demonstrates advanced degenerative changes at L4-5 with endplate sclerosis, marginal spurring and disc space narrowing along with facet hypertrophy and presumed foraminal narrowing. IMPRESSION: 1. No acute fracture / compression injury or subluxation. 2. Focal advanced degenerative spondylosis at L4-5. <Electronically signed by Pritesh Castellanos > 05/23/21 1108
== END ==
LOC: M PLAIMG 10:31
PROVIDERS: ATTEND Internal Medicine
DX: M51.36 Other intervertebral disc degeneration, lumbar region (principal)

== ENCOUNTER → 2021-06-08 | Outpatient (CLI) | payer OTHER ==
--- NOTE | 2021-06-08 14:20 | REP ---
INDICATION: ABD PAIN, HERNIA COMPARISON: Comparison CT study is from February 04, 2021. TECHNIQUE: Helical scanning is acquired and 3 mm axial images were reformatted. Coronal and sagittal MPR images were generated and reviewed. FINDINGS: Preliminary digital telegraphic typewriter mechanic radiograph shows air and fluid in a few loops of borderline caliber small bowel in the right mid abdomen. Cyst axial images taken at the lung bases show no evidence of pleural or pericardial effusion. There is a curvilinear density in the right lower lobe adjacent to the base of the major fissure consistent with fibrosis or atelectasis. This is unchanged. The liver and the spleen are normal in size homogeneous in texture. The gallbladder surgically absent. Patient is status post gastric bypass procedure. There is no evidence hydronephrosis on either side. There is a 4 mm intrarenal calculus in the lower pole the right kidney. No pancreatic abnormality is seen. There are surgical clips in the right lower quadrant consistent with previous appendectomy. The uterus is surgically absent. No pelvic mass or adenopathy is seen. Urinary bladder is unremarkable. Patient is status post ventral hernia repair. No abdominal wall defect is seen. There is however a deep subcutaneous hematoma seroma cavity in the anterior abdominal wall. This fluid collection measures 1.1 cm in right to left dimension by 3.3 cm in greatest anteroposterior dimension by 15.6 cm in greatest craniocaudal dimension no evidence of free air. No gastrointestinal obstructive lesion. IMPRESSION: Patient is status post ventral hernia repair. There is an abdominal wall seroma hematoma cavity as described above. No acute intra-abdominal abnormality. <Electronically signed by Darío Carmona > 06/08/21 1840
== END ==
LOC: M RAD 13:34
PROVIDERS: ATTEND Surgery
DX: K91.870 Postprocedural hematoma of a digestive system organ or structure following a digestive system procedure (principal); R10.9 Unspecified abdominal pain; Z90.49 Acquired absence of other specified parts of digestive tract; Z98.84 Bariatric surgery status; N20.0 Calculus of kidney; Y83.8 Other surgical procedures as the cause of abnormal reaction of the patient, or of later complication, without mention of misadventure at the time of the procedure

== ENCOUNTER → 2021-06-14 | Outpatient (REF) | payer OTHER | LOC: M LAB REF 16:17 | PROVIDERS: ATTEND Surgery | DX: K43.2 Incisional hernia without obstruction or gangrene (principal); L76.34 Postprocedural seroma of skin and subcutaneous tissue following other procedure ==

== ENCOUNTER → 2021-07-04 | Outpatient (CLI) | payer OTHER ==
--- NOTE | 2021-07-04 12:21 | REP ---
INDICATION: COUGH. COMPARISON: Multiple the latest 02/20/2021 TECHNIQUE: PA and lateral FINDINGS: The cardiomediastinal silhouette lung walker are unchanged. No acute patchy parenchymal opacities or pleural effusions have developed. There is no change in the osseous structures. IMPRESSION: Stable chronic changes. There is no evidence of acute cardiopulmonary disease. <Electronically signed by Didier Lomas > 07/04/21 6324
[2021-07-04 15:34] LABS: APPEARANCE, URINE CLEAR (CLEAR); BACTERIA, URINE AUTO NEGATIVE (NEGATIVE); BILIRUBIN, URINE AUTO NEGATIVE (NEGATIVE); BLOOD, URINE BLOOD NEGATIVE (NEGATIVE); COLOR, URINE YELLOW (YELLOW); GLUCOSE, URINE (UA) AUTO NEGATIVE (NEGATIVE); KETONE, URINE AUTO NEGATIVE (NEGATIVE); LEUKOCYTE ESTERASE, URINE AUTO 2+ (NEGATIVE); NITRITE, URINE AUTO NEGATIVE (NEGATIVE); PROTEIN, URINE AUTO NEGATIVE (NEGATIVE); RBC, URINE AUTO 2 /HPF (0-3); SPECIFIC GRAVITY URINE AUTO 1.005 (1.002-1.035); SQUAMOUS EPITHELIAL CELL UR AU 0 /HPF (0-6); UROBILINOGEN, URINE AUTO 0.2 mg/dL (0.0-2.0); WBC, URINE AUTO 3 /HPF (0-3)
[2021-07-04 15:39] LABS: HEMATOCRIT 41.3 % (36.0-47.0); MEAN CORPUSCULAR HEMOGLOBIN 29.8 pg (27.0-33.0); MEAN CORPUSCULAR HGB CONC 31.5 g/dl (32.0-36.5); MEAN CORPUSCULAR VOLUME 94.7 fl (80.0-96.0); PLATELET COUNT, AUTOMATED 176 10^3/uL (150-450); RED BLOOD COUNT 4.36 10^6/uL (4.00-5.40); WHITE BLOOD COUNT 6.7 10^3/uL (4.0-10.0)
[2021-07-04 16:12] LABS: ATYPICAL LYMPH 7 % (0-5); BASOPHILS 1 % (0-1); LYMPHOCYTES 32 % (16-44); MONOCYTES 4 % (0-5); NEUTROPHILS 56 % (28-66); PLATELET ESTIMATE NORMAL (NORMAL)
[2021-07-04 16:13] LABS: ANISOCYTOSIS 1+
== END ==
LOC: M PLAIMG 11:44
PROVIDERS: ATTEND Family Medicine
DX: R05 Cough (principal)
CPT/HCPCS: 36415; 71046; 81001; 85025; U0003

== ENCOUNTER 2021-07-07 17:24 | Emergency (ER) | payer OTHER ==
[~2021-07-07] VITALS: Ht 170.2 cm; Wt 83.0 kg
[2021-07-07 17:25] VITALS: BP 130/72
[2021-07-07] MEDS ORDERED: NS 1,000 ML IV ONE (18:25)
[2021-07-07] MEDS ORDERED: ONDANSETRON 4MG/2ML VIAL IV ONE (18:30)
[2021-07-07] MEDS ORDERED: fentaNYL 100 MCG/2 ML INJECTION (J3010) IV ONE (18:30)
[2021-07-07 18:34] LABS: BASO # 0.1 10^3/uL (0.0-0.2); BASO % 0.7 % (0.0-1.0); EOS # 0.1 10^3/uL (0.0-0.5); EOS % 1.2 % (0.0-3.0); HEMATOCRIT 39.6 % (36.0-47.0); HEMOGLOBIN 12.9 g/dl (12.0-15.5); LYMPH # 1.8 10^3/uL (1.5-5.0); LYMPH % 23.5 % (24.0-44.0); MEAN CORPUSCULAR HEMOGLOBIN 30.3 pg (27.0-33.0); MEAN CORPUSCULAR HGB CONC 32.6 g/dl (32.0-36.5); MONO # 0.6 10^3/uL (0.0-0.8); MONO % 8.1 % (2.0-8.0); NEUTROPHILS # 4.9 10^3/uL (1.5-8.5); NEUTROPHILS % 66.2 % (36.0-66.0); PLATELET COUNT, AUTOMATED 169 10^3/uL (150-450); RED BLOOD COUNT 4.26 10^6/uL (4.00-5.40); WHITE BLOOD COUNT 7.4 10^3/uL (4.0-10.0)
[2021-07-07 19:06] LABS: ALBUMIN 3.2 GM/DL (3.2-5.2); ALT/SGPT 21 U/L (12-78); BILIRUBIN,DIRECT < 0.1 MG/DL (0.0-0.2); BILIRUBIN,TOTAL 0.2 MG/DL (0.2-1.0); LIPASE 208 U/L (73-393); TOTAL PROTEIN 7.3 GM/DL (6.4-8.2)
[2021-07-07] MEDS ORDERED: ISOVUE-370 76% 100ML VIAL As Ordered ONE (19:41)
--- NOTE | 2021-07-07 21:09 | REPVR ---
PROCEDURE INFORMATION: Exam: CT Abdomen And Pelvis With Contrast Exam date and time: 07/07/2021 7:48 PM Age: 41 years old Clinical indication: Abdominal pain; Additional info: Recent umbilical hernia repair with mult seroma's eval for s TECHNIQUE: Imaging protocol: Computed tomography of the abdomen and pelvis with contrast. Radiation optimization: All CT scans at this facility use at least one of these dose optimization techniques: automated exposure control; mA and/or kV adjustment per patient size (includes targeted exams where dose is matched to clinical indication); or iterative reconstruction. Contrast material: ISOVUE 370; Contrast volume: 100 ml; Contrast route: INTRAVENOUS (IV); COMPARISON: CT ABD PELVIS W/O CONTRAST 06/08/2021 1:45 PM FINDINGS: Lungs: Slight bibasilar interstitial coarsening with minimal fibro-atelectatic change, greatest in the anterior right lower lobe. There is minimal bilateral lower lobe bronchiectasis. Liver: Normal. No mass. Gallbladder and bile ducts: Status post cholecystectomy. Pancreas: Normal. No ductal dilation. Spleen: Normal. No splenomegaly. Adrenal glands: Normal. No mass. Kidneys and ureters: Nonobstructing right renal calculi in the lower pole. Stomach and bowel: There has been gastric bypass with collapse of the bypassed stomach. Moderate stool and gas throughout much of the colon. No small bowel dilatation. Appendix: Status post appendectomy. Intraperitoneal space: Unremarkable. No free air. No significant fluid collection. 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 Lymph nodes: Unremarkable. No enlarged lymph nodes. Urinary bladder: Unremarkable as visualized. Reproductive: Status post hysterectomy. Bones/joints: Unremarkable. No acute fracture. Soft tissues: Midline incision with large subcutaneous fluid collection resting against the anterior abdominal wall musculature at midline measuring approximately the 11.2 x 6.2 x 12.6 cm with a Hounsfield measurement of 13 and is likely a seroma which is increased in size since a prior study. IMPRESSION: 1. Slight bibasilar interstitial coarsening with minimal fibro-atelectatic change and minimal bilateral lower lobe bronchiectasis. 2. 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 3. There has been prior cholecystectomy, gastric bypass, appendectomy and hysterectomy. 4. Midline fluid collection associated with the midline incision which is increased in size since 06/08/2021 and is most likely a seroma. 5. Otherwise negative CT abdomen/pelvis. Electronically signed by: Ibrahima An On 07/07/2021 21:08:21 PM
== END 2021-07-07 21:44 | disposition home or self-care (01) ==
LOC: M ED 17:24
DX: L76.34 Postprocedural seroma of skin and subcutaneous tissue following other procedure (principal); G43.909 Migraine, unspecified, not intractable, without status migrainosus; J43.9 Emphysema, unspecified; F31.9 Bipolar disorder, unspecified; Z87.442 Personal history of urinary calculi; Z98.84 Bariatric surgery status; F17.200 Nicotine dependence, unspecified, uncomplicated; Z79.890 Hormone replacement therapy; Z79.899 Other long term (current) drug therapy; Z88.6 Allergy status to analgesic agent; Z88.5 Allergy status to narcotic agent; Z88.8 Allergy status to other drugs, medicaments and biological substances; Z91.040 Latex allergy status
CPT/HCPCS: 74177; 80047; 80076; 83690; 84702; 85025; 96361; 96374; 96375; 99284; J2405; J3010; Q9967

== ENCOUNTER → 2021-07-10 | Outpatient (REF) | payer OTHER ==
[2021-07-10 15:45] LABS: GC DNA AMPLIFICATION NEGATIVE (NEGATIVE)
== END ==
LOC: M SFHCPLAZ 12:42
PROVIDERS: ATTEND Family Medicine
DX: N89.8 Other specified noninflammatory disorders of vagina (principal); N76.0 Acute vaginitis

== ENCOUNTER 2021-07-16 13:58 | Emergency (ER) | payer OTHER ==
[~2021-07-16] VITALS: Ht 170.2 cm; Wt 82.4 kg
[2021-07-16 18:57] LABS: HEMATOCRIT 39.7 % (36.0-47.0); MEAN CORPUSCULAR HEMOGLOBIN 30.3 pg (27.0-33.0); MEAN CORPUSCULAR HGB CONC 32.7 g/dl (32.0-36.5); MEAN CORPUSCULAR VOLUME 92.5 fl (80.0-96.0); PLATELET COUNT, AUTOMATED 196 10^3/uL (150-450); RED BLOOD COUNT 4.29 10^6/uL (4.00-5.40)
[2021-07-16 19:27] LABS: ALBUMIN 3.2 GM/DL (3.2-5.2); ALT/SGPT 19 U/L (12-78); BILIRUBIN,DIRECT < 0.1 MG/DL (0.0-0.2); BILIRUBIN,TOTAL 0.3 MG/DL (0.2-1.0); BLOOD UREA NITROGEN 10 MG/DL (7-18); CALCIUM LEVEL 9.6 MG/DL (8.5-10.1); CARBON DIOXIDE LEVEL 23 MEQ/L (21-32); CHLORIDE LEVEL 109 MEQ/L (98-107); CREATININE FOR GFR 0.78 MG/DL (0.55-1.30); GLOMERULAR FILTRATION RATE > 60.0 (>58); GLUCOSE, FASTING 90 MG/DL (70-100); LIPASE 172 U/L (73-393); POTASSIUM SERUM 3.9 MEQ/L (3.5-5.1); SODIUM LEVEL 138 MEQ/L (136-145); TOTAL PROTEIN 7.1 GM/DL (6.4-8.2)
[2021-07-16] MEDS ORDERED: ISOVUE-370 76% 100ML VIAL As Ordered ONE (19:37)
[2021-07-16 19:43] LABS: ATYPICAL LYMPH 1 % (0-5); LYMPHOCYTES 39 % (16-44)
[2021-07-16 19:45] LABS: ANISOCYTOSIS 1+; BASOPHILS 2 % (0-1); MONOCYTES 6 % (0-5); NEUTROPHILS 50 % (28-66)
[2021-07-16 19:46] LABS: PLATELET ESTIMATE NORMAL (NORMAL)
[2021-07-16] MEDS ORDERED: ONDANSETRON 4MG/2ML VIAL IV ONE (19:55)
[2021-07-16] MEDS ORDERED: fentaNYL 100 MCG/2 ML INJECTION (J3010) IV ONE (19:55)
--- NOTE | 2021-07-16 20:03 | REPVR ---
PROCEDURE INFORMATION: Exam: CT Abdomen And Pelvis With Contrast Exam date and time: 07/16/2021 7:43 PM Age: 41 years old Clinical indication: Abdominal pain; Generalized; Additional info: Feels seroma getting bigger inc pain TECHNIQUE: Imaging protocol: Computed tomography of the abdomen and pelvis with contrast. Radiation optimization: All CT scans at this facility use at least one of these dose optimization techniques: automated exposure control; mA and/or kV adjustment per patient size (includes targeted exams where dose is matched to clinical indication); or iterative reconstruction. Contrast material: ISOVUE 370; Contrast volume: 100 ml; Contrast route: INTRAVENOUS (IV); COMPARISON: CT ABD/PEL W/IV CONTRAST ONLY 07/07/2021 7:46 PM FINDINGS: Lungs: Lung bases are unremarkable aside from an area of scarring at the anterolateral right lung base. Liver: Liver appears normal with no focal abnormality. Gallbladder and bile ducts: Gallbladder is surgically absent. Pancreas: Pancreas appears normal. No focal mass or peripancreatic inflammation. Spleen: Spleen appears homogeneous without focal mass. Adrenal glands: Adrenal glands are normal in appearance. Kidneys and ureters: Kidneys are unremarkable aside from a nonobstructive lower pole right renal stone. Stomach and bowel: No evidence of small bowel obstruction. Large volume of stool is seen throughout the colon. No evidence of acute diverticulitis. Appendix: Probable prior appendectomy. Intraperitoneal space: No pneumoperitoneum. Vasculature: Atherosclerotic change present in the aorta, without aneurysm. Main portal and splenic veins enhance normally. Lymph nodes: No enlarged lymph nodes. Urinary bladder: Urinary bladder appears normal. Reproductive: Uterus is surgically absent. Bones/joints: No effacement of normal fat planes in the ischiorectal fossa. Bony structures show no acute fracture or destructive process. Soft tissues: Peripherally enhancing subcutaneous fluid collection in the anterior midline at the level of the umbilicus measures 11 cm transverse, 8 cm AP and a 12 cm craniocaudal, with adjacent anterior subcutaneous stranding. No air within the collection IMPRESSION: 1. Anterior periumbilical subcutaneous midline fluid collection suggestive of a seroma, now measuring 11 x 8 x 12 cm, slightly enlarged compared to the prior exam 2. Nonobstructive lower pole right renal stone Electronically signed by: Willie Lucero On 07/16/2021 20:02:53 PM
[2021-07-16 20:12] VITALS: BP 113/74
[2021-07-16] MEDS ORDERED: RA M1.74 PO (20:38)
--- NOTE | 2021-07-17 21:30 | ECGEPIP ---
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
== END 2021-07-16 20:52 | disposition home or self-care (01) ==
LOC: M ED 13:58
DX: L76.34 Postprocedural seroma of skin and subcutaneous tissue following other procedure (principal); K59.00 Constipation, unspecified; R00.1 Bradycardia, unspecified; G43.909 Migraine, unspecified, not intractable, without status migrainosus; J45.909 Unspecified asthma, uncomplicated; M54.9 Dorsalgia, unspecified; K21.9 Gastro-esophageal reflux disease without esophagitis; F31.9 Bipolar disorder, unspecified; F19.10 Other psychoactive substance abuse, uncomplicated; Z87.442 Personal history of urinary calculi; Z98.84 Bariatric surgery status; F17.200 Nicotine dependence, unspecified, uncomplicated; Z79.890 Hormone replacement therapy; Z79.899 Other long term (current) drug therapy; Z88.6 Allergy status to analgesic agent; Z88.5 Allergy status to narcotic agent; Z88.8 Allergy status to other drugs, medicaments and biological substances; Z91.040 Latex allergy status
CPT/HCPCS: 74177; 80048; 80076; 83690; 85025; 93005; 96374; 96375; 99284; J2405; J3010; Q9967

== ENCOUNTER → 2021-07-18 | Outpatient (CLI) | payer OTHER ==
[~2021-07-18] MED LIST changes: +LIDOCAINE 1% MDV 20ML VIAL As Ordered ONE; +RA M1.74 PO
[2021-07-18 14:15] VITALS: BP 131/74
--- NOTE | 2021-07-18 18:26 | REP ---
INDICATION: ABSCESS DRAIN. COMPARISON: None. TECHNIQUE: CT was performed under the direct supervision of Dr. Mendes. The patient has a history of an 11 x 8 x 12 cm anterior periumbilical subcutaneous midline fluid collection seen on a previous CT scan dated 07/16/2021. The risks and benefits of the procedure were explained to the patient and informed consent was obtained. The abdominal fluid collection was localized using ultrasound guidance. The skin was prepped and draped in a sterile fashion. 1% lidocaine was used as a local anesthetic. Using ultrasound guidance an 8 Maldivian skater APDL catheter was inserted using trocar technique. 380 mL of veronica colored fluid was withdrawn with a sample sent to the lab for analysis. The catheter was then removed. Estimated blood loss: Less than 1 mL. The patient tolerated the procedure well and there were no immediate complications. After the appropriate amount to monitor convalescence the patient was discharged from the department. FINDINGS: None IMPRESSION: Ultrasound-guided abdominal seroma drain. <Electronically signed by Roberto Robbins > 07/18/21 1622 <Electronically signed by Chava Mendes > 07/18/21 0161
== END ==
LOC: M IRPRO 13:12
PROVIDERS: ATTEND Surgery
DX: L76.34 Postprocedural seroma of skin and subcutaneous tissue following other procedure (principal)

== ENCOUNTER → 2021-08-28 | Outpatient (CLI) | payer OTHER ==
[~2021-08-28] MED LIST changes: +DOXY-443 PO; -DOXY1CAP62 PO; -LIDOCAINE 1% MDV 20ML VIAL As Ordered ONE
--- NOTE | 2021-08-28 14:53 | REP ---
INDICATION: FLUID COLLECTION MID ABD, ABD PAIN COMPARISON: CT dated 07/16/2021 TECHNIQUE: Real time directed B-mode ultrasound examination. FINDINGS: Directed ultrasound examination of the supraumbilical midline region demonstrates a complex multi-septated fluid collection measuring 6.7 x 3.6 x 5.4 cm. IMPRESSION: Complex multi-septated fluid collection/hematoma appears relatively decreased in size when compared to prior CT dated 07/16/2021. <Electronically signed by Pritesh Castellanos > 08/28/21 8102
== END ==
LOC: M RAD 14:04
PROVIDERS: ATTEND Internal Medicine Gastroenterology
DX: K31.84 Gastroparesis (principal); R10.13 Epigastric pain; Z98.84 Bariatric surgery status; K59.00 Constipation, unspecified; K62.5 Hemorrhage of anus and rectum; R18.8 Other ascites

== ENCOUNTER → 2021-09-12 | Outpatient (CLI) | payer OTHER ==
[~2021-09-12] MED LIST changes: +AMIT24CA7 PO; -DICY20TA11 PO; +DICY20TA20 PO; +ESTR1TAB PO; +LOSA100T45 PO; -LOSA100T50 PO; +LOSA25TA13 PO; -LOSA25TA14 PO; +MELO7.5T35 PO; +NYST50SS PO; +OXYB5TAB10 PO; +TAMS1CAP17 PO
== END ==
LOC: M PAIN 09:45
PROVIDERS: ATTEND Anesthesiology
DX: M47.814 Spondylosis without myelopathy or radiculopathy, thoracic region (principal); G89.29 Other chronic pain; K21.9 Gastro-esophageal reflux disease without esophagitis; G43.909 Migraine, unspecified, not intractable, without status migrainosus; J45.909 Unspecified asthma, uncomplicated; G47.33 Obstructive sleep apnea (adult) (pediatric); F17.210 Nicotine dependence, cigarettes, uncomplicated; Z86.14 Personal history of Methicillin resistant Staphylococcus aureus infection; Z86.59 Personal history of other mental and behavioral disorders; Z98.84 Bariatric surgery status; Z88.5 Allergy status to narcotic agent; Z88.8 Allergy status to other drugs, medicaments and biological substances; Z91.040 Latex allergy status; Z79.899 Other long term (current) drug therapy

== ENCOUNTER → 2021-10-02 | Outpatient (CLI) | payer OTHER ==
[~2021-10-02] MED LIST changes: -AMIT24CA7 PO; +DICY20TA11 PO; -DICY20TA20 PO; -ESTR1TAB PO; -LOSA100T45 PO; +LOSA100T50 PO; -LOSA25TA13 PO; +LOSA25TA14 PO; -MELO7.5T35 PO; -NYST50SS PO; -OXYB5TAB10 PO; -TAMS1CAP17 PO
--- NOTE | 2021-10-03 13:13 | REPVR ---
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 COMPARISON: MRI-Spine,Thoracic without con 06/02/2019 7:41 AM FINDINGS: Vertebrae: Vertebral body height is maintained at each level. There is no sagittal plane spondylolisthesis. No scoliosis or lateral listhesis. Spinal cord: The thoracic spinal cord demonstrates normal signal intensity and caliber. There is no cord edema or myelomalacia. T1-T2: Moderate bilateral neural foraminal stenosis secondary to facet hypertrophy. No disc herniation. No central canal stenosis. T2-T3: Moderate left neural foraminal stenosis secondary to facet hypertrophy. No disc herniation. No central canal stenosis. No interval change. T3-T4: The posterior disc contour is normal. There is no central canal or neural foraminal stenosis. T4-T5: The posterior disc contour is normal. There is no central canal or neural foraminal stenosis. T5-T6: The posterior disc contour is normal. There is no central canal or neural foraminal stenosis. T6-T7: The posterior disc contour is normal. There is no central canal or neural foraminal stenosis. T7-T8: The posterior disc contour is normal. There is no central canal or neural foraminal stenosis. T8-T9: No central canal stenosis. No disc herniation. Moderate right neural foraminal stenosis secondary to facet hypertrophy. T9-T10: Moderate left neural foraminal stenosis secondary to facet hypertrophy. No central canal stenosis. No disc herniation. No interval change compared to prior. T10-T11: Trace, less than 2 mm disc bulge. No central canal stenosis. Mild right neural foraminal stenosis. T11-T12: Mild bilateral facet arthropathy with ligamentum flavum hypertrophy. No central canal stenosis. No disc herniation. Mild right neural foraminal stenosis. T12-L1: Bilateral facet arthropathy with ligamentum flavum hypertrophy. No disc herniation. No central canal stenosis. Mild bilateral neural foraminal stenosis. Other bones/joints: Signal from bone is preserved. There is no acute fracture. Soft tissues: Soft tissues in the prevertebral space are preserved. IMPRESSION: 1. No thoracic disc herniation or spinal canal compromise. 2. Multilevel facet arthropathy/hypertrophy, with associated neural foraminal stenosis but without contact of regional nerve roots. This is notable at T9-T10 on the left, T8-T9 on the right, T1-T2 bilaterally, and T2-T3 on the left. Electronically signed by: Tracey Jiménez On 10/03/2021 13:12:38 PM
== END ==
LOC: M RAD 09:01
PROVIDERS: ATTEND Nurse Practitioner Family
DX: M47.814 Spondylosis without myelopathy or radiculopathy, thoracic region (principal); M48.04 Spinal stenosis, thoracic region

== ENCOUNTER → 2021-10-09 | Outpatient (POV) | payer OTHER ==
[~2021-10-09] VITALS: Ht 167.6 cm; Wt 81.4 kg
[~2021-10-09] MED LIST changes: +AMIT24CA7 PO; +OXYB5TAB10 PO
[2021-10-09 09:15] VITALS: BP 151/79
== END ==
LOC: M IRPOV 09:09
PROVIDERS: ATTEND Radiology Diagnostic Radiology
DX: R19.00 Intra-abdominal and pelvic swelling, mass and lump, unspecified site (principal); F17.210 Nicotine dependence, cigarettes, uncomplicated; Z90.710 Acquired absence of both cervix and uterus; Z98.84 Bariatric surgery status

== ENCOUNTER → 2021-10-18 | Outpatient (CLI) | payer OTHER ==
[~2021-10-18] MED LIST changes: -DICY20TA11 PO; +DICY20TA20 PO; +ISOVUE-300 61% 50ML VIAL As Ordered ONE; +LIDOCAINE 1% MDV 20ML VIAL As Ordered ONE; +LOSA100T45 PO; -LOSA100T50 PO; +LOSA25TA13 PO; -LOSA25TA14 PO; +MIDAZOLAM INJ 2MG/2ML VIAL (J2250 PER 1MG) As Ordered ONE; +NS 1,000 ML IV SCH; +SODIUM TETRADECYL SULFATE(3%)30MG/ML 2ML VIAL (SOTRADECOL) As Ordered ONE; +diphenhydrAMINE 50MG/ML VIAL (J1200) As Ordered ONE; +fentaNYL 100 MCG/2 ML INJECTION (J3010) As Ordered ONE
[2021-10-18 16:26] VITALS: BP 110/74
== END ==
LOC: M IRPRO 11:56
PROVIDERS: ATTEND Radiology Diagnostic Radiology
DX: L76.34 Postprocedural seroma of skin and subcutaneous tissue following other procedure (principal)
CPT/HCPCS: 49185; 99152; 99153; C1894; J2250; J3010

== ENCOUNTER → 2021-10-24 | Outpatient (REF) | payer OTHER ==
[~2021-10-24] MED LIST changes: -ISOVUE-300 61% 50ML VIAL As Ordered ONE; -LIDOCAINE 1% MDV 20ML VIAL As Ordered ONE; -MIDAZOLAM INJ 2MG/2ML VIAL (J2250 PER 1MG) As Ordered ONE; -NS 1,000 ML IV SCH; -SODIUM TETRADECYL SULFATE(3%)30MG/ML 2ML VIAL (SOTRADECOL) As Ordered ONE; -diphenhydrAMINE 50MG/ML VIAL (J1200) As Ordered ONE; -fentaNYL 100 MCG/2 ML INJECTION (J3010) As Ordered ONE
== END ==
LOC: M SFHCPLAZ 10:26
PROVIDERS: ATTEND Physician Assistant
DX: J06.9 Acute upper respiratory infection, unspecified (principal)
CPT/HCPCS: 87633; U0003

== ENCOUNTER → 2021-10-25 | Outpatient (CLI) | payer OTHER | LOC: M RAD 14:09 | PROVIDERS: ATTEND Physician Assistant | DX: M25.511 Pain in right shoulder (principal) ==

== ENCOUNTER → 2021-11-06 | Outpatient (POV) | payer OTHER ==
[~2021-11-06] VITALS: Ht 170.2 cm; Wt 81.8 kg
[~2021-11-06] MED LIST changes: +ESTR1TAB PO; +MELO7.5T35 PO; +NYST50SS PO; +TAMS1CAP17 PO
[2021-11-06 09:05] VITALS: BP 120/78
== END ==
LOC: M IRPOV 08:57
PROVIDERS: ATTEND Radiology Diagnostic Radiology
DX: Z48.817 Encounter for surgical aftercare following surgery on the skin and subcutaneous tissue (principal); Z88.5 Allergy status to narcotic agent; Z88.6 Allergy status to analgesic agent; Z88.8 Allergy status to other drugs, medicaments and biological substances; Z91.040 Latex allergy status

== ENCOUNTER → 2021-11-06 | Outpatient (CLI) | payer OTHER ==
[~2021-11-06] MED LIST changes: -ESTR1TAB PO; -MELO7.5T35 PO; -NYST50SS PO; -TAMS1CAP17 PO
== END ==
LOC: M LAB 08:58
PROVIDERS: ATTEND Urology
DX: N20.0 Calculus of kidney (principal)

== ENCOUNTER → 2021-11-07 | Outpatient (CLI) | payer OTHER | LOC: M PAIN 10:30 | PROVIDERS: ATTEND Anesthesiology | DX: M96.1 Postlaminectomy syndrome, not elsewhere classified (principal); M51.16 Intervertebral disc disorders with radiculopathy, lumbar region; K21.9 Gastro-esophageal reflux disease without esophagitis; G43.909 Migraine, unspecified, not intractable, without status migrainosus; J45.909 Unspecified asthma, uncomplicated; G47.33 Obstructive sleep apnea (adult) (pediatric); F17.210 Nicotine dependence, cigarettes, uncomplicated; Z86.14 Personal history of Methicillin resistant Staphylococcus aureus infection; Z98.84 Bariatric surgery status; Z86.59 Personal history of other mental and behavioral disorders; Z88.5 Allergy status to narcotic agent; Z88.8 Allergy status to other drugs, medicaments and biological substances; Z91.040 Latex allergy status; Z79.899 Other long term (current) drug therapy ==

== ENCOUNTER → 2021-11-10 | Outpatient (CLI) | payer OTHER ==
[~2021-11-10] MED LIST changes: +ESTR1TAB PO; +MELO7.5T35 PO; +NYST50SS PO; +TAMS1CAP17 PO
== END ==
LOC: M LABSMTC 10:08
PROVIDERS: ATTEND Anesthesiology
DX: Z01.812 Encounter for preprocedural laboratory examination (principal); Z20.822 Contact with and (suspected) exposure to COVID-19

== ENCOUNTER 2021-11-15 06:04 | Day surgery (SDC) | payer OTHER ==
[~2021-11-15] VITALS: Ht 170.2 cm; Wt 84.8 kg
[2021-11-15] MEDS ORDERED: ceFAZolin SOD 2 GM in IV 1 EA IV ONE (07:00)
[2021-11-15] MEDS ORDERED: propofoL 200 MG/20 ML VIAL As Ordered ONE (07:12)
[2021-11-15] MEDS ORDERED: LIDOCAINE 2% 100MG/5ML SDV (FOR ANES.) As Ordered ONE (07:12)
[2021-11-15] MEDS ORDERED: fentaNYL 100 MCG/2 ML INJECTION As Ordered ONE (07:12)
[2021-11-15] MEDS ORDERED: MIDAZOLAM INJ 2MG/2ML VIAL (J2250 PER 1MG) As Ordered ONE (07:13)
[2021-11-15] MEDS ORDERED: LR 1,000 ML IV ONE (07:25)
[2021-11-15] MEDS ORDERED: ACETAMINOPHEN 1000MG 100ML IV BTL (OFIRMEV) (J0131 PER 10MG) As Ordered ONE (08:36)
[2021-11-15 09:15] VITALS: BP 125/66
== END 2021-11-15 09:25 | disposition home or self-care (01) ==
LOC: M SDC 06:04
PROVIDERS: ATTEND Urology
DX: N20.0 Calculus of kidney (principal); R07.9 Chest pain, unspecified; R01.1 Cardiac murmur, unspecified; K21.9 Gastro-esophageal reflux disease without esophagitis; D64.9 Anemia, unspecified; D83.9 Common variable immunodeficiency, unspecified; D80.1 Nonfamilial hypogammaglobulinemia; Z98.84 Bariatric surgery status; M54.9 Dorsalgia, unspecified; M81.0 Age-related osteoporosis without current pathological fracture; M85.80 Other specified disorders of bone density and structure, unspecified site; G43.909 Migraine, unspecified, not intractable, without status migrainosus; F41.9 Anxiety disorder, unspecified; F31.9 Bipolar disorder, unspecified; G57.93 Unspecified mononeuropathy of bilateral lower limbs; J45.909 Unspecified asthma, uncomplicated; G47.30 Sleep apnea, unspecified; Z87.448 Personal history of other diseases of urinary system; Z79.899 Other long term (current) drug therapy; Z88.8 Allergy status to other drugs, medicaments and biological substances; Z88.5 Allergy status to narcotic agent; Z91.040 Latex allergy status
CPT/HCPCS: 50590; 74018; J0131; J0690; J2250; J3010

== ENCOUNTER → 2021-11-27 | Outpatient (CLI) | payer OTHER ==
[2021-11-27 11:32] LABS: HEMATOCRIT 39.3 % (36.0-47.0); HEMOGLOBIN 12.7 g/dl (12.0-15.5); MEAN CORPUSCULAR HEMOGLOBIN 28.8 pg (27.0-33.0); MEAN CORPUSCULAR HGB CONC 32.3 g/dl (32.0-36.5); MEAN CORPUSCULAR VOLUME 89.1 fl (80.0-96.0); PLATELET COUNT, AUTOMATED 145 10^3/uL (150-450); RED BLOOD COUNT 4.41 10^6/uL (4.00-5.40); WHITE BLOOD COUNT 7.7 10^3/uL (4.0-10.0)
[2021-11-27 12:04] LABS: ALBUMIN 3.6 GM/DL (3.2-5.2); ALT/SGPT 27 U/L (12-78); BILIRUBIN,TOTAL 0.4 MG/DL (0.2-1.0); BLOOD UREA NITROGEN 11 MG/DL (7-18); CALCIUM LEVEL 9.1 MG/DL (8.5-10.1); CARBON DIOXIDE LEVEL 27 MEQ/L (21-32); CHLORIDE LEVEL 109 MEQ/L (98-107); CHOLESTEROL LEVEL 230 MG/DL (<200); CHOLESTEROL RISK RATIO 2.875 (<5); CREATININE FOR GFR 0.99 MG/DL (0.55-1.30); FERRITIN 11 NG/ML (8-252); GLOMERULAR FILTRATION RATE > 60.0 (>58); GLUCOSE, FASTING 101 MG/DL (70-100); HDL CHOLESTEROL 80 MG/DL (>40); IRON (FE) 32 UG/DL (50-170); LDL CHOLESTEROL 134 MG/DL (<100); NON-HDL-C 150 MG/DL; PERCENT SATURATION 6.8 % (13.2-45.0); POTASSIUM SERUM 3.7 MEQ/L (3.5-5.1); SODIUM LEVEL 140 MEQ/L (136-145); TOTAL IRON BINDING CAPACITY 472 UG/DL (250-450); TOTAL PROTEIN 7.5 GM/DL (6.4-8.2); TRIGLYCERIDES LEVEL 81 MG/DL (<150)
[2021-11-27 12:12] LABS: FOLATE 15.7 NG/ML (>5.4); TOTAL 25(OH) VITAMIN D 16.3 NG/ML (30.0-100.0); VITAMIN B12 LEVEL 412 PG/ML (247-911)
== END ==
LOC: M LAB 09:50
PROVIDERS: ATTEND Physician Assistant
DX: K91.2 Postsurgical malabsorption, not elsewhere classified (principal); E78.5 Hyperlipidemia, unspecified; Z98.84 Bariatric surgery status; Z13.220 Encounter for screening for lipoid disorders

== ENCOUNTER → 2021-11-27 | Outpatient (CLI) | payer OTHER | LOC: M RAD 09:46 | PROVIDERS: ATTEND Urology | DX: N20.0 Calculus of kidney (principal) ==

== ENCOUNTER → 2021-11-27 | Outpatient (CLI) | payer OTHER ==
[2021-11-27 12:53] LABS: % LABILE ALKALINE PHOSPHATASE 56.5 %
== END ==
LOC: M LAB 09:53
PROVIDERS: ATTEND Nurse Practitioner Family
DX: R74.8 Abnormal levels of other serum enzymes (principal); F10.10 Alcohol abuse, uncomplicated

== ENCOUNTER → 2021-12-06 | Outpatient (REF) | payer OTHER ==
[2021-12-06 14:03] LABS: APPEARANCE, URINE CLEAR (CLEAR); BACTERIA, URINE AUTO NEGATIVE (NEGATIVE); BILIRUBIN, URINE AUTO NEGATIVE (NEGATIVE); BLOOD, URINE BLOOD NEGATIVE (NEGATIVE); COLOR, URINE STRAW (YELLOW); GLUCOSE, URINE (UA) AUTO NEGATIVE (NEGATIVE); KETONE, URINE AUTO NEGATIVE (NEGATIVE); LEUKOCYTE ESTERASE, URINE AUTO NEGATIVE (NEGATIVE); NITRITE, URINE AUTO NEGATIVE (NEGATIVE); PROTEIN, URINE AUTO NEGATIVE (NEGATIVE); RBC, URINE AUTO 0 /HPF (0-3); SPECIFIC GRAVITY URINE AUTO 1.004 (1.002-1.035); SQUAMOUS EPITHELIAL CELL UR AU 0 /HPF (0-6); UROBILINOGEN, URINE AUTO 0.2 mg/dL (0.0-2.0); WBC, URINE AUTO 0 /HPF (0-3)
== END ==
LOC: M SMT 12:55
PROVIDERS: ATTEND Nurse Practitioner Women's Health
DX: N20.0 Calculus of kidney (principal)

== ENCOUNTER → 2021-12-06 | Outpatient (REF) | payer OTHER | LOC: M SFHCPLAZ 10:11 | PROVIDERS: ATTEND Family Medicine | DX: R05.9 Cough, unspecified (principal) | CPT/HCPCS: 87205; U0003 ==

== ENCOUNTER → 2021-12-08 | Outpatient (CLI) | payer OTHER | LOC: M RAD 10:24 | PROVIDERS: ATTEND Family Medicine | DX: R05.9 Cough, unspecified (principal) ==

== ENCOUNTER → 2021-12-21 | Outpatient (CLI) | payer OTHER | LOC: M WUC 14:40 | PROVIDERS: ATTEND Internal Medicine | DX: S93.601A Unspecified sprain of right foot, initial encounter (principal); W18.30XA Fall on same level, unspecified, initial encounter; Y92.009 Unspecified place in unspecified non-institutional (private) residence as the place of occurrence of the external cause ==

== ENCOUNTER → 2022-01-01 | Outpatient (CLI) | payer OTHER ==
[2022-01-01 07:50] LABS: BASO % 0.3 % (0.0-1.0); EOS % 0.5 % (0.0-3.0); HEMATOCRIT 42.9 % (36.0-47.0); HEMOGLOBIN 13.9 g/dl (12.0-15.5); LYMPH # 1.6 10^3/uL (1.5-5.0); LYMPH % 26.1 % (24.0-44.0); MEAN CORPUSCULAR HEMOGLOBIN 28.6 pg (27.0-33.0); MEAN CORPUSCULAR HGB CONC 32.4 g/dl (32.0-36.5); MEAN CORPUSCULAR VOLUME 88.3 fl (80.0-96.0); MONO # 0.4 10^3/uL (0.0-0.8); MONO % 5.9 % (2.0-8.0); NEUTROPHILS # 4.2 10^3/uL (1.5-8.5); NEUTROPHILS % 66.9 % (36.0-66.0); PLATELET COUNT, AUTOMATED 110 10^3/uL (150-450); RED BLOOD COUNT 4.86 10^6/uL (4.00-5.40); WHITE BLOOD COUNT 6.2 10^3/uL (4.0-10.0)
[2022-01-01 08:11] LABS: ALBUMIN 3.6 GM/DL (3.2-5.2); ALT/SGPT 34 U/L (12-78); BILIRUBIN,TOTAL 0.4 MG/DL (0.2-1.0); BLOOD UREA NITROGEN 10 MG/DL (7-18); CARBON DIOXIDE LEVEL 30 MEQ/L (21-32); CHLORIDE LEVEL 108 MEQ/L (98-107); CREATININE FOR GFR 0.86 MG/DL (0.55-1.30); GLOMERULAR FILTRATION RATE > 60.0 (>58); GLUCOSE, FASTING 102 MG/DL (70-100); IMMUNOGLOBULIN G 1340 MG/DL (681-1648); POTASSIUM SERUM 3.9 MEQ/L (3.5-5.1); SODIUM LEVEL 144 MEQ/L (136-145); TOTAL PROTEIN 7.4 GM/DL (6.4-8.2)
== END ==
LOC: M LAB 07:24
PROVIDERS: ATTEND Allergy & Immunology Allergy
DX: D83.9 Common variable immunodeficiency, unspecified (principal)

== ENCOUNTER → 2022-01-07 | Outpatient (CLI) | payer OTHER ==
[2022-01-07 15:39] LABS: APPEARANCE, URINE CLEAR (CLEAR); BACTERIA, URINE AUTO NEGATIVE (NEGATIVE); BILIRUBIN, URINE AUTO NEGATIVE (NEGATIVE); BLOOD, URINE BLOOD NEGATIVE (NEGATIVE); COLOR, URINE STRAW (YELLOW); GLUCOSE, URINE (UA) AUTO NEGATIVE (NEGATIVE); KETONE, URINE AUTO NEGATIVE (NEGATIVE); LEUKOCYTE ESTERASE, URINE AUTO NEGATIVE (NEGATIVE); NITRITE, URINE AUTO NEGATIVE (NEGATIVE); PROTEIN, URINE AUTO NEGATIVE (NEGATIVE); RBC, URINE AUTO 0 /HPF (0-3); SPECIFIC GRAVITY URINE AUTO 1.008 (1.002-1.035); SQUAMOUS EPITHELIAL CELL UR AU 0 /HPF (0-6); UROBILINOGEN, URINE AUTO 0.2 mg/dL (0.0-2.0); WBC, URINE AUTO 0 /HPF (0-3)
== END ==
LOC: M PLAIMG 12:15
PROVIDERS: ATTEND Family Medicine
DX: R05.9 Cough, unspecified (principal); R30.0 Dysuria; R91.8 Other nonspecific abnormal finding of lung field

== ENCOUNTER → 2022-02-05 | Outpatient (POV) | payer OTHER ==
[~2022-02-05] VITALS: Ht 167.6 cm; Wt 76.4 kg
[2022-02-05 11:25] VITALS: BP 128/61
== END ==
LOC: M IRPOV 11:17
PROVIDERS: ATTEND Radiology Diagnostic Radiology
DX: Z09 Encounter for follow-up examination after completed treatment for conditions other than malignant neoplasm (principal); L76.34 Postprocedural seroma of skin and subcutaneous tissue following other procedure; Z88.5 Allergy status to narcotic agent; Z88.6 Allergy status to analgesic agent; Z88.8 Allergy status to other drugs, medicaments and biological substances; Z91.040 Latex allergy status

== ENCOUNTER → 2022-02-11 | Outpatient (CLI) | payer OTHER | LOC: M RAD 07:57 | PROVIDERS: ATTEND Allergy & Immunology Allergy | DX: J31.0 Chronic rhinitis (principal) ==

== ENCOUNTER → 2022-02-20 | Outpatient (CLI) | payer OTHER ==
[2022-02-20 15:22] LABS: HEPATITIS B SURFACE ANTIGEN NEGATIVE (NEGATIVE); HEPATITIS C VIRUS ABY INDEX 0.1 INDEX (<0.8); HIV 1&2 SCREEN CENTAUR NEGATIVE (NEGATIVE)
== END ==
LOC: M LAB 13:01
PROVIDERS: ATTEND Obstetrics & Gynecology
DX: Z11.3 Encounter for screening for infections with a predominantly sexual mode of transmission (principal)

== ENCOUNTER → 2022-02-20 | Outpatient (CLI) | payer OTHER ==
[2022-02-20 14:40] LABS: CHOLESTEROL RISK RATIO 3.24 (<5); FREE T4 0.8 NG/DL (0.76-1.46); THYROID STIMULATING HORMONE 0.952 uIU/ML (0.358-3.740)
== END ==
LOC: M LAB 12:58
PROVIDERS: ATTEND Internal Medicine Hematology
DX: R53.82 Chronic fatigue, unspecified (principal)

== ENCOUNTER → 2022-02-20 | Outpatient (CLI) | payer OTHER ==
[2022-02-20 13:59] LABS: HEMATOCRIT 41.3 % (36.0-47.0); HEMOGLOBIN 13.4 g/dl (12.0-15.5); MEAN CORPUSCULAR HGB CONC 32.4 g/dl (32.0-36.5); MEAN CORPUSCULAR VOLUME 89.4 fl (80.0-96.0); PLATELET COUNT, AUTOMATED 152 10^3/uL (150-450); RED BLOOD COUNT 4.62 10^6/uL (4.00-5.40); WHITE BLOOD COUNT 5.3 10^3/uL (4.0-10.0)
[2022-02-20 14:34] LABS: ALBUMIN 3.7 GM/DL (3.2-5.2); ALT/SGPT 24 U/L (12-78); BILIRUBIN,TOTAL 0.5 MG/DL (0.2-1.0); BLOOD UREA NITROGEN 9 MG/DL (7-18); CALCIUM LEVEL 9.5 MG/DL (8.5-10.1); CARBON DIOXIDE LEVEL 30 MEQ/L (21-32); CHLORIDE LEVEL 108 MEQ/L (98-107); CREATININE FOR GFR 0.95 MG/DL (0.55-1.30); GLOMERULAR FILTRATION RATE > 60.0 (>58); GLUCOSE, FASTING 84 MG/DL (70-100); LIPASE 209 U/L (73-393); MAGNESIUM LEVEL 2.4 MG/DL (1.8-2.4); POTASSIUM SERUM 3.6 MEQ/L (3.5-5.1); SODIUM LEVEL 140 MEQ/L (136-145); TOTAL PROTEIN 7.5 GM/DL (6.4-8.2)
[2022-02-20 14:42] LABS: TOTAL 25(OH) VITAMIN D 33.8 NG/ML (30.0-100.0)
[2022-02-20 14:43] LABS: VITAMIN B12 LEVEL 247 PG/ML (247-911)
== END ==
LOC: M LAB 12:53
PROVIDERS: ATTEND Internal Medicine Gastroenterology
DX: R10.13 Epigastric pain (principal); Z98.84 Bariatric surgery status; R63.4 Abnormal weight loss; E55.9 Vitamin D deficiency, unspecified; K86.1 Other chronic pancreatitis; R11.2 Nausea with vomiting, unspecified

== ENCOUNTER → 2022-02-22 | Outpatient (REF) | payer OTHER | LOC: M LAB REF 10:00 | PROVIDERS: ATTEND Internal Medicine Gastroenterology | DX: R10.13 Epigastric pain (principal); Z98.84 Bariatric surgery status; R63.4 Abnormal weight loss; E55.9 Vitamin D deficiency, unspecified; K86.1 Other chronic pancreatitis; R11.2 Nausea with vomiting, unspecified ==

== ENCOUNTER → 2022-05-30 | Outpatient (CLI) | payer OTHER ==
[~2022-05-30] MED LIST changes: +ALBU2.5V10 NEB; -ALBU83IN NEB; +LEVO1TAB40 PO; -LEVO750T13 PO
[2022-05-30 15:27] LABS: HEMATOCRIT 33.9 % (36.0-47.0); HEMOGLOBIN 11.1 g/dl (12.0-15.5); MEAN CORPUSCULAR HEMOGLOBIN 29.1 pg (27.0-33.0); MEAN CORPUSCULAR HGB CONC 32.7 g/dl (32.0-36.5); PLATELET COUNT, AUTOMATED 109 10^3/uL (150-450); RED BLOOD COUNT 3.81 10^6/uL (4.00-5.40); WHITE BLOOD COUNT 5.3 10^3/uL (4.0-10.0)
[2022-05-30 16:08] LABS: ALBUMIN 3.4 GM/DL (3.2-5.2); ALT/SGPT 26 U/L (12-78); BILIRUBIN,DIRECT 0.2 MG/DL (0.0-0.2); BILIRUBIN,TOTAL 0.3 MG/DL (0.2-1.0); C REACTIVE PROTEIN QUANTITATIV < 0.30 MG/DL (0.00-0.30); LIPASE 243 U/L (73-393); TOTAL PROTEIN 6.7 GM/DL (6.4-8.2)
== END ==
LOC: M LAB 14:52
PROVIDERS: ATTEND Internal Medicine Gastroenterology
DX: R10.11 Right upper quadrant pain (principal); K86.1 Other chronic pancreatitis; R18.8 Other ascites; R19.7 Diarrhea, unspecified; Z98.84 Bariatric surgery status; K86.89 Other specified diseases of pancreas

== ENCOUNTER → 2022-06-11 | Outpatient (CLI) | payer OTHER ==
[2022-06-11 14:27] LABS: HEMATOCRIT 36.5 % (36.0-47.0); HEMOGLOBIN 11.7 g/dl (12.0-15.5); MEAN CORPUSCULAR HEMOGLOBIN 28.7 pg (27.0-33.0); MEAN CORPUSCULAR HGB CONC 32.1 g/dl (32.0-36.5); MEAN CORPUSCULAR VOLUME 89.5 fl (80.0-96.0); PLATELET COUNT, AUTOMATED 127 10^3/uL (150-450); RED BLOOD COUNT 4.08 10^6/uL (4.00-5.40); WHITE BLOOD COUNT 4.6 10^3/uL (4.0-10.0)
[2022-06-11 14:35] LABS: HEMATOCRIT 36.5 % (36.0-47.0)
[2022-06-11 14:45] LABS: INR 0.85
[2022-06-11 15:16] LABS: FERRITIN 13 NG/ML (8-252); IRON (FE) 33 UG/DL (50-170); PERCENT SATURATION 6.8 % (13.2-45.0); TOTAL IRON BINDING CAPACITY 485 UG/DL (250-450)
[2022-06-11 16:13] LABS: VITAMIN B12 LEVEL > 2000 PG/ML (247-911)
== END ==
LOC: M LAB 12:54
PROVIDERS: ATTEND Internal Medicine Hematology
DX: E61.1 Iron deficiency (principal)

== ENCOUNTER 2022-06-28 09:09 | Observation (INO) | payer OTHER ==
[~2022-06-28] VITALS: Ht 167.6 cm; Wt 70.5 kg
[2022-06-28 10:11] LABS: BASO # 0.1 10^3/uL (0.0-0.2); EOS % 0.8 % (0.0-3.0); HEMATOCRIT 38.3 % (36.0-47.0); HEMOGLOBIN 12.7 g/dl (12.0-15.5); LYMPH # 1.5 10^3/uL (1.5-5.0); LYMPH % 28.9 % (24.0-44.0); MEAN CORPUSCULAR HEMOGLOBIN 28.3 pg (27.0-33.0); MEAN CORPUSCULAR HGB CONC 33.2 g/dl (32.0-36.5); MEAN CORPUSCULAR VOLUME 85.5 fl (80.0-96.0); MONO # 0.4 10^3/uL (0.0-0.8); MONO % 8.6 % (2.0-8.0); NEUTROPHILS % 60.3 % (36.0-66.0); PLATELET COUNT, AUTOMATED 149 10^3/uL (150-450); RED BLOOD COUNT 4.48 10^6/uL (4.00-5.40)
[2022-06-28 10:49] LABS: BILIRUBIN,DIRECT 0.2 MG/DL (0.0-0.2); BILIRUBIN,TOTAL 0.5 MG/DL (0.2-1.0); CALCIUM LEVEL 10.1 MG/DL (8.5-10.1); CREATININE FOR GFR 1.12 MG/DL (0.55-1.30); GLOMERULAR FILTRATION RATE 56.8 (>58); TOTAL PROTEIN 8.5 GM/DL (6.4-8.2)
[2022-06-28] MEDS ORDERED: NS 500 ML IV ONE (12:35)
[2022-06-28] MEDS ORDERED: ISOVUE-370 76% 100ML VIAL As Ordered ONE (13:12)
[2022-06-28] MEDS ORDERED: POTASSIUM CHLORIDE 10MEQ SR TABLET PO ONE (14:40)
[2022-06-28] MEDS ORDERED: KCL 10MEQ/100ML SWI (KRUN) 10 MEQ in IV 1 EA IV ONE (15:40)
[2022-06-28 17:52] LABS: POTASSIUM SERUM 2.6 MEQ/L (3.5-5.1)
[2022-06-28 18:22] LABS: MAGNESIUM LEVEL 2.3 MG/DL (1.8-2.4)
[2022-06-28] MEDS ORDERED: ACETAMINOPHEN TAB 650MG DOSE (2X325MG) PO ONE (18:45)
[2022-06-28] MEDS ORDERED: metroNIDAZOLE 500 MG in IV 1 EA IV ONE (18:55)
[2022-06-28] MEDS ORDERED: TOPIRAMATE (TopAMAX) 25 MG TAB PO SCH (21:00)
[2022-06-28] MEDS ORDERED: clonazePAM 1 MG TAB PO SCH (21:00)
[2022-06-28] MEDS ORDERED: PREGABALIN 100 MG CAP (LYRICA) PO SCH (21:00)
[2022-06-28] MEDS ORDERED: ACAMPROSATE CALCIUM 333 MG TABLET (CAMPRAL) PO SCH (21:00)
[2022-06-28] MEDS ORDERED: busPIRone 10 MG TAB PO SCH (21:00)
[2022-06-28] MEDS ORDERED: PRAZOSIN 1 MG CAP PO SCH (21:00)
[2022-06-28] MEDS ORDERED: THIAMINE 100 MG TAB PO SCH (21:00)
[2022-06-28] MEDS ORDERED: NARA2.5T PO (21:03)
[2022-06-28] MEDS ORDERED: CLON1TAB8 PO (21:03)
[2022-06-28] MEDS ORDERED: ZALE10CA PO (21:05)
[2022-06-28] MEDS ORDERED: OXYB5TAB10 PO (21:05)
[2022-06-28] MEDS ORDERED: ATRO0.063 INH (21:05)
[2022-06-28] MEDS ORDERED: ACAM0.05 PO (21:05)
[2022-06-28] MEDS ORDERED: FLUT1INH3 INH (21:05)
[2022-06-28] MEDS ORDERED: MED REC COMMENT (21:06)
[2022-06-28] MEDS ORDERED: HOME MED LIST COMPLETE! XX SCH (21:10)
[2022-06-28] MEDS ORDERED: ACETAMINOPHEN 500 MG TAB PO PRN (21:25)
[2022-06-28] MEDS ORDERED: ALBUTEROL SULFATE 2.5 MG/0.5 ML INH NEB SOLN NEB PRN (21:25)
[2022-06-28] MEDS ORDERED: ALBUTEROL 90 MCG/ACT 8GM HFA INHALER INH PRN (21:25)
[2022-06-28] MEDS ORDERED: IPRATROPIUM HFA INHALER 12.9 GRAMS (ATROVENT HFA) INH PRN (21:25)
[2022-06-28] MEDS ORDERED: BISACODYL 10 MG SUPP PR ONE (21:50)
[2022-06-28] MEDS ORDERED: NS 1,000 ML IV SCH (21:50)
[2022-06-28] MEDS ORDERED: POTASSIUM CHLORIDE 10% LIQ 20 MEQ/15 ML UDC PO ONE (21:50)
[2022-06-28 23:49] VITALS: BP 110/67
[2022-06-28] MEDS: KCL 10MEQ/100ML SWI (KRUN) 10 MEQ in IV 1 EA IV SCH (23:54)
[2022-06-29 00:15] LABS: BLOOD UREA NITROGEN 21 MG/DL (7-18); CALCIUM LEVEL 9.2 MG/DL (8.5-10.1); CARBON DIOXIDE LEVEL 32 MEQ/L (21-32); CHLORIDE LEVEL 98 MEQ/L (98-107); GLOMERULAR FILTRATION RATE > 60.0 (>58); GLUCOSE, FASTING 84 MG/DL (70-100); POTASSIUM SERUM 3.2 MEQ/L (3.5-5.1); SODIUM LEVEL 135 MEQ/L (136-145)
[2022-06-29] MEDS: KCL 10MEQ/100ML SWI (KRUN) 10 MEQ in IV 1 EA IV SCH ×4 (01:10→04:30)
[2022-06-29 08:07] LABS: HEMATOCRIT 37.4 % (36.0-47.0); HEMOGLOBIN 11.9 g/dl (12.0-15.5); MEAN CORPUSCULAR HEMOGLOBIN 27.7 pg (27.0-33.0); MEAN CORPUSCULAR HGB CONC 31.8 g/dl (32.0-36.5); MEAN CORPUSCULAR VOLUME 87.2 fl (80.0-96.0); PLATELET COUNT, AUTOMATED 125 10^3/uL (150-450); RED BLOOD COUNT 4.29 10^6/uL (4.00-5.40); WHITE BLOOD COUNT 3.5 10^3/uL (4.0-10.0)
[2022-06-29 08:18] LABS: INR 0.87; PROTHROMBIN TIME 12.2 SECONDS (12.7-14.5)
[2022-06-29 08:19] LABS: PARTIAL THROMBOPLASTIN TIME 27.2 SECONDS (25.9-37.0)
[2022-06-29] MEDS ORDERED: PANTOPRAZOLE 40MG TAB (PROTONIX) PO SCH (09:00)
[2022-06-29] MEDS ORDERED: FLUTICASONE PROP 0.05% NASAL SPRAY 16 GM (FLONASE) SCH (09:00)
[2022-06-29] MEDS ORDERED: FOLIC ACID 1MG TAB PO SCH (09:00)
[2022-06-29] MEDS ORDERED: MULTIVITAMINS/MINERALS THERAP 1 TAB PO SCH (09:00)
[2022-06-29] MEDS ORDERED: NIFEdipine 10 MG CAP PO SCH (09:00)
[2022-06-29] MEDS ORDERED: estradioL 1 MG TAB PO SCH (09:00)
[2022-06-29 09:14] LABS: ALT/SGPT 32 U/L (12-78); BLOOD UREA NITROGEN 14 MG/DL (7-18); CALCIUM LEVEL 8.9 MG/DL (8.5-10.1); CARBON DIOXIDE LEVEL 32 MEQ/L (21-32); CHLORIDE LEVEL 101 MEQ/L (98-107); GLOMERULAR FILTRATION RATE > 60.0 (>58); GLUCOSE, FASTING 91 MG/DL (70-100); POTASSIUM SERUM 2.9 MEQ/L (3.5-5.1); SODIUM LEVEL 136 MEQ/L (136-145)
[2022-06-29 09:15] LABS: ALBUMIN 3.3 GM/DL (3.2-5.2); BILIRUBIN,TOTAL 0.3 MG/DL (0.2-1.0)
[2022-06-29] MEDS ORDERED: POTASSIUM CHLORIDE 10MEQ SR TABLET PO SCH (10:00)
== END 2022-06-29 10:00 | disposition left against medical advice (07) ==
LOC: M ED 09:09 → M ED INP 21:25
PROVIDERS: ADMIT Internal Medicine; ATTEND Internal Medicine
DX: E87.6 Hypokalemia (principal); E87.1 Hypo-osmolality and hyponatremia; I95.9 Hypotension, unspecified; R40.0 Somnolence; R10.9 Unspecified abdominal pain; K59.00 Constipation, unspecified; F17.210 Nicotine dependence, cigarettes, uncomplicated; F10.10 Alcohol abuse, uncomplicated; F12.10 Cannabis abuse, uncomplicated; J45.909 Unspecified asthma, uncomplicated; I10 Essential (primary) hypertension; K21.9 Gastro-esophageal reflux disease without esophagitis; G43.909 Migraine, unspecified, not intractable, without status migrainosus; Z88.5 Allergy status to narcotic agent; Z91.040 Latex allergy status; Z88.8 Allergy status to other drugs, medicaments and biological substances; F41.9 Anxiety disorder, unspecified; Z79.899 Other long term (current) drug therapy
CPT/HCPCS: 36415; 71045; 74177; 80048; 80053; 80076; 83690; 83735; 84132; 85025; 85027; 85610; 85730; 87635; 93005; 93041; 93971; 96361; 96365; 96366; 96367; 96375; 96376; 99285; Q9967

== ENCOUNTER 2022-07-31 11:47 | Outpatient (CLI) | payer OTHER ==
[~2022-07-31] VITALS: Ht 167.6 cm; Wt 77.2 kg
[2022-07-31 12:00] VITALS: BP 138/82
[2022-07-31] MEDS ORDERED: IRON SUCROSE 200 MG in NS 190 ML IV ONE (12:00)
[2022-07-31 14:10] VITALS: BP 116/55
== END 2022-07-31 14:10 | disposition home or self-care (01) ==
LOC: M INFU 11:47
PROVIDERS: ATTEND Internal Medicine Hematology
DX: D50.9 Iron deficiency anemia, unspecified (principal); Z88.1 Allergy status to other antibiotic agents; Z88.5 Allergy status to narcotic agent; Z88.6 Allergy status to analgesic agent
CPT/HCPCS: 96365; J1756

== ENCOUNTER → 2022-07-31 | Outpatient (CLI) | payer OTHER ==
[~2022-07-31] MED LIST changes: +ATRO0.063 INH; +CLON1TAB8 PO; +FLUT1INH3 INH; +MED REC COMMENT; +ZALE10CA PO
== END ==
LOC: M RAD 14:29
PROVIDERS: ATTEND Internal Medicine Hematology
DX: M54.40 Lumbago with sciatica, unspecified side (principal); M47.817 Spondylosis without myelopathy or radiculopathy, lumbosacral region

== ENCOUNTER 2022-08-07 12:00 | Outpatient (CLI) | payer OTHER ==
[~2022-08-07] VITALS: Ht 170.2 cm; Wt 72.1 kg
[~2022-08-07 12:00] MED LIST changes: +ALBUTEROL SULFATE 2.5 MG/0.5 ML INH NEB SOLN INH PRN; +EPINEPHrine INJ 1 MG/ML 1ML AMP IM PRN; +IRON SUCROSE 200 MG in NS 100 ML OVER 1 HR IV ONE; +NS 1,000 ML IV SCH; +diphenhydrAMINE 50MG/ML VIAL (J1200) IV PRN; +methylPREDNISolone 125MG 2ML VIAL IV PRN
[2022-08-07 12:05] VITALS: BP 105/55
[2022-08-07 13:25] VITALS: BP 96/51
== END 2022-08-07 13:30 | disposition home or self-care (01) ==
LOC: M INFU 12:00
PROVIDERS: ATTEND Internal Medicine Hematology
DX: D50.9 Iron deficiency anemia, unspecified (principal); Z88.5 Allergy status to narcotic agent; Z88.6 Allergy status to analgesic agent; Z88.1 Allergy status to other antibiotic agents; Z91.040 Latex allergy status
CPT/HCPCS: 96365; J1756

== ENCOUNTER 2022-08-26 16:35 | Emergency (ER) | payer OTHER ==
[~2022-08-26] VITALS: Ht 167.6 cm; Wt 72.2 kg
[~2022-08-26 16:35] MED LIST changes: -ALBUTEROL SULFATE 2.5 MG/0.5 ML INH NEB SOLN INH PRN; -EPINEPHrine INJ 1 MG/ML 1ML AMP IM PRN; -IRON SUCROSE 200 MG in NS 100 ML OVER 1 HR IV ONE; -NS 1,000 ML IV SCH; -diphenhydrAMINE 50MG/ML VIAL (J1200) IV PRN; -methylPREDNISolone 125MG 2ML VIAL IV PRN
[2022-08-26] MEDS ORDERED: EPIN0.3I11 (17:04)
[2022-08-26] MEDS ORDERED: FURO80TA2 (17:04)
[2022-08-26] MEDS ORDERED: QUET100T2 (17:04)
[2022-08-26] MEDS ORDERED: CREO24CA PO (17:10)
[2022-08-26 18:15] LABS: BASO # 0.1 10^3/uL (0.0-0.2); BASO % 1.1 % (0.0-1.0); EOS # 0.1 10^3/uL (0.0-0.5); EOS % 1.3 % (0.0-3.0); HEMATOCRIT 39.4 % (36.0-47.0); HEMOGLOBIN 12.4 g/dl (12.0-15.5); LYMPH # 2.1 10^3/uL (1.5-5.0); LYMPH % 37.9 % (24.0-44.0); MEAN CORPUSCULAR HEMOGLOBIN 29.1 pg (27.0-33.0); MEAN CORPUSCULAR HGB CONC 31.5 g/dl (32.0-36.5); MEAN CORPUSCULAR VOLUME 92.5 fl (80.0-96.0); MONO # 0.4 10^3/uL (0.0-0.8); MONO % 6.4 % (2.0-8.0); NEUTROPHILS % 53.1 % (36.0-66.0); PLATELET COUNT, AUTOMATED 163 10^3/uL (150-450); RED BLOOD COUNT 4.26 10^6/uL (4.00-5.40); WHITE BLOOD COUNT 5.6 10^3/uL (4.0-10.0)
[2022-08-26 18:56] LABS: OSMOLALITY SERUM 285 MOSM/KG (275-295)
[2022-08-26 18:57] LABS: HCG, SERUM QUALITATIVE NEGATIVE (NEGATIVE)
[2022-08-26 19:19] LABS: ACETAMINOPHEN LEVEL < 2.0 UG/ML (10.0-20.0); ALBUMIN 3.6 G/DL (3.2-5.2); ALT/SGPT 26 U/L (7.0-40); BILIRUBIN,DIRECT 0.1 MG/DL (<0.4); BILIRUBIN,TOTAL 0.3 MG/DL (0.3-1.2); BLOOD UREA NITROGEN 13 MG/DL (9-23); CALCIUM LEVEL 9.4 MG/DL (8.5-10.1); CARBON DIOXIDE LEVEL 24 MMOL/L (20-31); CHLORIDE LEVEL 105 MMOL/L (98-107); CREATININE FOR GFR 0.71 MG/DL (0.55-1.30); ETHYL ALCOHOL (ETHANOL) 0.003 % (0.000-0.010); GLOMERULAR FILTRATION RATE > 60.0 (>58); GLUCOSE, FASTING 94 MG/DL (60-100); POTASSIUM SERUM 3.8 MMOL/L (3.5-5.1); SODIUM LEVEL 139 MMOL/L (136-145); THYROID STIMULATING HORMONE 0.341 uIU/ML (0.55-4.78); TOTAL PROTEIN 6.9 G/DL (5.7-8.2)
[2022-08-26 19:20] LABS: SALICYLATE LEVEL < 3.0 MG/DL (<30)
[2022-08-26 20:46] LABS: RSV AMPLIFICATION NEGATIVE (NEGATIVE)
[2022-08-26 21:07] LABS: AMPHETAMINES LEVEL URINE POSITIVE (NEGATIVE); BARBITURATES URINE NEGATIVE (NEGATIVE); BENZODIAZEPINES URINE NEGATIVE (NEGATIVE); CANNABINOIDS URINE POSITIVE (NEGATIVE); COCAINE METABOLITE URINE NEGATIVE (NEGATIVE); METHADONE URINE NEGATIVE (NEGATIVE); OPIATES URINE NEGATIVE (NEGATIVE); PHENCYCLIDINE URINE NEGATIVE (NEGATIVE)
[2022-08-26 22:30] VITALS: BP 132/66
== END 2022-08-26 22:40 | disposition home or self-care (01) ==
LOC: M ED 16:35
DX: F43.0 Acute stress reaction (principal); D83.9 Common variable immunodeficiency, unspecified; F31.9 Bipolar disorder, unspecified; Z98.84 Bariatric surgery status; Z90.89 Acquired absence of other organs; Z90.49 Acquired absence of other specified parts of digestive tract; Z90.710 Acquired absence of both cervix and uterus; F17.200 Nicotine dependence, unspecified, uncomplicated; F19.10 Other psychoactive substance abuse, uncomplicated; Z88.6 Allergy status to analgesic agent; Z88.8 Allergy status to other drugs, medicaments and biological substances; Z91.040 Latex allergy status; Z79.51 Long term (current) use of inhaled steroids; Z79.899 Other long term (current) drug therapy

== ENCOUNTER 2022-09-04 10:30 | Outpatient (CLI) | payer OTHER ==
[~2022-09-04] VITALS: Ht 167.6 cm; Wt 70.5 kg
[2022-09-04 10:30] VITALS: BP 128/70
[2022-09-04] MEDS ORDERED: NS 1,000 ML IV SCH (11:00)
[2022-09-04] MEDS ORDERED: ALBUTEROL SULFATE 2.5 MG/0.5 ML INH NEB SOLN INH PRN (11:00)
[2022-09-04] MEDS ORDERED: EPINEPHrine INJ 1 MG/ML 1ML AMP IM PRN (11:00)
[2022-09-04] MEDS ORDERED: IRON SUCROSE 200 MG in NS 100 ML OVER 1 HR IV ONE (11:00)
[2022-09-04] MEDS ORDERED: methylPREDNISolone 125MG 2ML VIAL IV PRN (11:00)
[2022-09-04] MEDS ORDERED: diphenhydrAMINE 50MG/ML VIAL IV PRN (11:00)
[2022-09-04 12:40] VITALS: BP 125/74
== END 2022-09-04 12:40 | disposition home or self-care (01) ==
LOC: M INFU 10:30
PROVIDERS: ATTEND Internal Medicine Hematology
DX: D50.9 Iron deficiency anemia, unspecified (principal); Z88.6 Allergy status to analgesic agent; Z88.8 Allergy status to other drugs, medicaments and biological substances; Z88.1 Allergy status to other antibiotic agents; Z91.040 Latex allergy status
CPT/HCPCS: 96365; J1756

== ENCOUNTER → 2022-09-04 | Outpatient (CLI) | payer OTHER ==
[~2022-09-04] MED LIST changes: +CREO24CA PO; +EPIN0.3I11; +FURO80TA2; +QUET100T2
[2022-09-04 13:55] LABS: BASO # 0.1 10^3/uL (0.0-0.2); EOS # 0.1 10^3/uL (0.0-0.5); EOS % 1.4 % (0.0-3.0); HEMOGLOBIN 12.8 g/dl (12.0-15.5); LYMPH # 2.6 10^3/uL (1.5-5.0); LYMPH % 43.7 % (24.0-44.0); MEAN CORPUSCULAR HEMOGLOBIN 29.6 pg (27.0-33.0); MEAN CORPUSCULAR VOLUME 92.6 fl (80.0-96.0); MONO # 0.3 10^3/uL (0.0-0.8); MONO % 4.6 % (2.0-8.0); NEUTROPHILS # 2.9 10^3/uL (1.5-8.5); NEUTROPHILS % 49.1 % (36.0-66.0); PLATELET COUNT, AUTOMATED 160 10^3/uL (150-450); RED BLOOD COUNT 4.32 10^6/uL (4.00-5.40); WHITE BLOOD COUNT 5.9 10^3/uL (4.0-10.0)
== END ==
LOC: M LAB 13:05
PROVIDERS: ATTEND Allergy & Immunology Allergy
DX: D83.9 Common variable immunodeficiency, unspecified (principal)

== ENCOUNTER → 2022-09-06 | Outpatient (CLI) | payer OTHER ==
[2022-09-06 16:40] LABS: THYROID STIMULATING HORMONE 1.273 uIU/ML (0.55-4.78)
[2022-09-06 16:43] LABS: FREE T4 0.93 NG/DL (0.89-1.76)
== END ==
LOC: M PLALAB 14:06
PROVIDERS: ATTEND Physician Assistant
DX: R79.89 Other specified abnormal findings of blood chemistry (principal); R82.90 Unspecified abnormal findings in urine

== ENCOUNTER 2022-09-11 11:00 | Outpatient (CLI) | payer OTHER ==
[~2022-09-11] VITALS: Ht 170.2 cm; Wt 72.1 kg
[2022-09-11 11:00] VITALS: BP 120/58
[~2022-09-11 11:00] MED LIST changes: +ALBUTEROL SULFATE 2.5 MG/0.5 ML INH NEB SOLN INH PRN; +EPINEPHrine INJ 1 MG/ML 1ML AMP IM PRN; +IRON SUCROSE 200 MG in NS 100 ML OVER 1 HR IV ONE; +NS 1,000 ML IV SCH; +diphenhydrAMINE 50MG/ML VIAL IV PRN; +methylPREDNISolone 125MG 2ML VIAL IV PRN
[2022-09-11 12:35] VITALS: BP 118/56
== END 2022-09-11 12:35 | disposition home or self-care (01) ==
LOC: M INFU 11:00
PROVIDERS: ATTEND Internal Medicine Hematology
DX: D50.9 Iron deficiency anemia, unspecified (principal); Z88.6 Allergy status to analgesic agent; Z88.8 Allergy status to other drugs, medicaments and biological substances; Z91.040 Latex allergy status
CPT/HCPCS: 96365; J1756

== ENCOUNTER 2022-09-18 13:30 | Outpatient (CLI) | payer OTHER ==
[~2022-09-18] VITALS: Ht 170.2 cm; Wt 72.1 kg
[2022-09-18 13:45] VITALS: BP 119/56
[2022-09-18 14:55] VITALS: BP 96/64
== END 2022-09-18 15:00 ==
LOC: M INFU 13:30
PROVIDERS: ATTEND Internal Medicine Hematology
DX: D50.9 Iron deficiency anemia, unspecified (principal); Z88.6 Allergy status to analgesic agent; Z88.1 Allergy status to other antibiotic agents; Z91.040 Latex allergy status
CPT/HCPCS: 96365; J1756

== ENCOUNTER → 2022-10-09 | Outpatient (REF) | payer OTHER ==
[~2022-10-09] MED LIST changes: -ALBUTEROL SULFATE 2.5 MG/0.5 ML INH NEB SOLN INH PRN; -EPINEPHrine INJ 1 MG/ML 1ML AMP IM PRN; -IRON SUCROSE 200 MG in NS 100 ML OVER 1 HR IV ONE; -NS 1,000 ML IV SCH; +NYST-38 PO; +NYST-38 SSP; -NYST50SS PO; -NYST50SS SSP; -diphenhydrAMINE 50MG/ML VIAL IV PRN; -methylPREDNISolone 125MG 2ML VIAL IV PRN
[2022-10-09 19:26] LABS: APPEARANCE, URINE MANUAL CLEAR (CLEAR); COLOR, URINE MANUAL LT YELLOW (YELLOW)
[2022-10-09 19:27] LABS: GLUCOSE, URINE (UA) MANUAL NEGATIVE (NEGATIVE); KETONE, URINE MANUAL NEGATIVE (NEGATIVE); PROTEIN, URINE MANUAL NEGATIVE (NEGATIVE); UROBILINOGEN, URINE MANUAL NORMAL (NORMAL)
[2022-10-09 19:28] LABS: BILIRUBIN, URINE MANUAL NEGATIVE (NEGATIVE); BLOOD URINE MANUAL NEGATIVE (NEGATIVE); LEUKOCYTE ESTERASE, URINE MAN NEGATIVE (NEGATIVE); NITRITE, URINE MANUAL NEGATIVE (NEGATIVE)
== END ==
LOC: M SMT 17:17
PROVIDERS: ATTEND Urology
DX: N32.89 Other specified disorders of bladder (principal)

== ENCOUNTER → 2022-12-09 | Outpatient (CLI) | payer OTHER ==
[~2022-12-09] MED LIST changes: +TOPI-254 PO; -TOPI50TA9 PO
[2022-12-09 13:49] LABS: HEMATOCRIT 50.3 % (36.0-47.0); HEMOGLOBIN 16.8 g/dl (12.0-15.5); MEAN CORPUSCULAR HEMOGLOBIN 32.3 pg (27.0-33.0); MEAN CORPUSCULAR HGB CONC 33.4 g/dl (32.0-36.5); MEAN CORPUSCULAR VOLUME 96.7 fl (80.0-96.0); PLATELET COUNT, AUTOMATED 129 10^3/uL (150-450); WHITE BLOOD COUNT 3.6 10^3/uL (4.0-10.0)
[2022-12-09 14:27] LABS: C REACTIVE PROTEIN QUANTITATIV < 0.40 MG/DL (<1.0); FERRITIN 125.3 NG/ML (7.3-270.7); FREE T4 0.89 NG/DL (0.89-1.76); GLUCOSE,RANDOM 77 MG/DL (LESS THAN 200); THYROID STIMULATING HORMONE 0.411 uIU/ML (0.55-4.78); VITAMIN B12 LEVEL 330 PG/ML (211-911)
[2022-12-09 14:28] LABS: TOTAL IRON BINDING CAPACITY 370 UG/DL (250-425)
[2022-12-09 14:29] LABS: IRON (FE) 78 UG/DL (50-170); PERCENT SATURATION 21.1 % (13.2-45.0)
[2022-12-09 15:52] LABS: HEMOGLOBIN A1c 4.8 % (4.0-6.0)
[2022-12-09 16:13] LABS: HEPATITIS B SURFACE ANTIBODY POSITIVE (POSITIVE)
[2022-12-09 16:24] LABS: HEPATITIS B SURFACE ANTIGEN NEGATIVE (NEGATIVE)
[2022-12-09 16:37] LABS: HIV 1&2 SCREEN CENTAUR NEGATIVE (NEGATIVE)
[2022-12-09 16:46] LABS: HEPATITIS B CORE ANTIBODY IGM NEGATIVE (NEGATIVE)
[2022-12-10 08:09] LABS: HEPATITIS B CORE ANTIBODY IGG Negative (Negative); TRANSFERRIN 340 mg/dL (192-364)
== END ==
LOC: M PLALAB 11:32
PROVIDERS: ATTEND Internal Medicine Hematology
DX: D50.9 Iron deficiency anemia, unspecified (principal); F31.9 Bipolar disorder, unspecified; F19.10 Other psychoactive substance abuse, uncomplicated

== ENCOUNTER → 2023-01-01 | Outpatient (CLI) | payer OTHER | LOC: M PAIN 10:30 | PROVIDERS: ATTEND Anesthesiology | DX: M46.1 Sacroiliitis, not elsewhere classified (principal); M47.816 Spondylosis without myelopathy or radiculopathy, lumbar region; M53.3 Sacrococcygeal disorders, not elsewhere classified; G89.29 Other chronic pain; K21.9 Gastro-esophageal reflux disease without esophagitis; G43.909 Migraine, unspecified, not intractable, without status migrainosus; J45.909 Unspecified asthma, uncomplicated; G47.33 Obstructive sleep apnea (adult) (pediatric); I10 Essential (primary) hypertension; F17.210 Nicotine dependence, cigarettes, uncomplicated; Z86.14 Personal history of Methicillin resistant Staphylococcus aureus infection; Z98.84 Bariatric surgery status; Z86.59 Personal history of other mental and behavioral disorders; Z88.5 Allergy status to narcotic agent; Z88.8 Allergy status to other drugs, medicaments and biological substances; Z91.040 Latex allergy status; Z79.899 Other long term (current) drug therapy | CPT/HCPCS: 76000; G0463 ==

== ENCOUNTER 2023-01-13 16:59 | Emergency (ER) | payer OTHER ==
[~2023-01-13] VITALS: Ht 170.2 cm; Wt 70.7 kg
[~2023-01-13 16:59] MED LIST changes: -BACT800T5 PO; -ONDA4TAB6 PO
[2023-01-13 18:09] LABS: BASO % 0.7 % (0.0-1.0); EOS # 0.1 10^3/uL (0.0-0.5); EOS % 1.1 % (0.0-3.0); HEMATOCRIT 36.3 % (36.0-47.0); LYMPH # 1.9 10^3/uL (1.5-5.0); LYMPH % 34.9 % (24.0-44.0); MEAN CORPUSCULAR HEMOGLOBIN 32.6 pg (27.0-33.0); MEAN CORPUSCULAR HGB CONC 33.1 g/dl (32.0-36.5); MEAN CORPUSCULAR VOLUME 98.6 fl (80.0-96.0); MONO # 0.5 10^3/uL (0.0-0.8); MONO % 9.2 % (2.0-8.0); NEUTROPHILS # 2.9 10^3/uL (1.5-8.5); NEUTROPHILS % 53.9 % (36.0-66.0); PLATELET COUNT, AUTOMATED 103 10^3/uL (150-450); RED BLOOD COUNT 3.68 10^6/uL (4.00-5.40); WHITE BLOOD COUNT 5.4 10^3/uL (4.0-10.0)
[2023-01-13 18:46] LABS: HCG, SERUM QUALITATIVE NEGATIVE (NEGATIVE)
[2023-01-13 18:47] LABS: ALBUMIN 3.3 G/DL (3.2-5.2); ALKALINE PHOSPHATASE 108 U/L (46-116); ALT/SGPT 42 U/L (7.0-40); AST/SGOT 57 U/L (<34); BILIRUBIN,DIRECT 0.1 MG/DL (<0.4); BILIRUBIN,TOTAL 0.3 MG/DL (0.3-1.2); BLOOD UREA NITROGEN 13 MG/DL (9-23); CALCIUM LEVEL 8.7 MG/DL (8.5-10.1); CARBON DIOXIDE LEVEL 25 MMOL/L (20-31); CHLORIDE LEVEL 108 MMOL/L (98-107); CREATININE FOR GFR 0.73 MG/DL (0.55-1.30); GLOMERULAR FILTRATION RATE > 60.0 (>58); GLUCOSE, FASTING 82 MG/DL (60-100); LIPASE 45 U/L (12-53); POTASSIUM SERUM 3.5 MMOL/L (3.5-5.1); SODIUM LEVEL 139 MMOL/L (136-145); TOTAL PROTEIN 6.2 G/DL (5.7-8.2)
[2023-01-13] MEDS ORDERED: BACT800T5 PO (20:14)
[2023-01-13] MEDS ORDERED: BACTRIM 160MG/800MG DS TAB PO ONE (20:15)
[2023-01-13] MEDS ORDERED: ONDA4TAB6 PO (20:16)
[2023-01-13 20:21] VITALS: BP 112/56
== END 2023-01-13 20:25 | disposition home or self-care (01) ==
LOC: M ED 16:59
DX: N39.0 Urinary tract infection, site not specified (principal); F19.10 Other psychoactive substance abuse, uncomplicated; K21.9 Gastro-esophageal reflux disease without esophagitis; Z87.442 Personal history of urinary calculi; J45.909 Unspecified asthma, uncomplicated; E78.5 Hyperlipidemia, unspecified; M54.9 Dorsalgia, unspecified; F31.9 Bipolar disorder, unspecified; F41.9 Anxiety disorder, unspecified; G47.33 Obstructive sleep apnea (adult) (pediatric); D83.9 Common variable immunodeficiency, unspecified; F17.200 Nicotine dependence, unspecified, uncomplicated; F12.10 Cannabis abuse, uncomplicated; Z79.899 Other long term (current) drug therapy; Z88.6 Allergy status to analgesic agent; Z88.8 Allergy status to other drugs, medicaments and biological substances; Z88.5 Allergy status to narcotic agent; Z91.040 Latex allergy status

== ENCOUNTER → 2023-01-13 | Outpatient (CLI) | payer OTHER ==
[~2023-01-13] MED LIST changes: +BACT800T5 PO; +FLUT50SP17; -FLUTISP; +ONDA4TAB6 PO
[2023-01-13 18:07] LABS: HEMATOCRIT 38.8 % (36.0-47.0); MEAN CORPUSCULAR HEMOGLOBIN 32.5 pg (27.0-33.0); MEAN CORPUSCULAR HGB CONC 33.5 g/dl (32.0-36.5); PLATELET COUNT, AUTOMATED 112 10^3/uL (150-450); WHITE BLOOD COUNT 4.9 10^3/uL (4.0-10.0)
[2023-01-13 18:24] LABS: FREE T4 0.85 NG/DL (0.89-1.76); THYROID STIMULATING HORMONE 0.747 uIU/ML (0.55-4.78)
[2023-01-13 18:25] LABS: FERRITIN 59.1 NG/ML (7.3-270.7)
[2023-01-13 18:26] LABS: TOTAL 25(OH) VITAMIN D 66.4 NG/ML (20.0-100.0)
== END ==
LOC: M LAB 16:06
PROVIDERS: ATTEND Internal Medicine Hematology
DX: F41.9 Anxiety disorder, unspecified (principal)

== ENCOUNTER 2023-01-15 11:40 | Emergency (ER) | payer OTHER ==
[~2023-01-15] VITALS: Ht 170.2 cm; Wt 70.0 kg
[~2023-01-15 11:40] MED LIST changes: +BACT800T5 PO; +ONDA4TAB6 PO
[2023-01-15] MEDS ORDERED: PROMETHAZINE 25MG/ML 1ML VIAL IV ONE (12:35)
[2023-01-15] MEDS ORDERED: NS 1,000 ML IV ONE (12:35)
[2023-01-15] MEDS: fentaNYL 100 MCG/2 ML INJECTION IV PRN ×2 (13:00→13:44)
[2023-01-15 13:11] LABS: BASO % 0.7 % (0.0-1.0); EOS % 0.7 % (0.0-3.0); HEMATOCRIT 42.3 % (36.0-47.0); LYMPH # 1.6 10^3/uL (1.5-5.0); LYMPH % 37.8 % (24.0-44.0); MEAN CORPUSCULAR HEMOGLOBIN 32.5 pg (27.0-33.0); MEAN CORPUSCULAR HGB CONC 33.3 g/dl (32.0-36.5); MEAN CORPUSCULAR VOLUME 97.5 fl (80.0-96.0); MONO # 0.2 10^3/uL (0.0-0.8); MONO % 5.1 % (2.0-8.0); NEUTROPHILS # 2.3 10^3/uL (1.5-8.5); NEUTROPHILS % 55.2 % (36.0-66.0); RED BLOOD COUNT 4.34 10^6/uL (4.00-5.40); WHITE BLOOD COUNT 4.2 10^3/uL (4.0-10.0)
[2023-01-15 13:20] LABS: INR 0.89; PROTHROMBIN TIME 12.2 SECONDS (12.5-14.5)
[2023-01-15 13:21] LABS: PARTIAL THROMBOPLASTIN TIME 26.2 SECONDS (24.8-34.2)
[2023-01-15 13:33] LABS: CK-MB VALUE MASS 1.6 NG/ML (<3.6); LIPASE 47 U/L (12-53)
[2023-01-15 13:35] LABS: AMYLASE 61 U/L (30-118)
[2023-01-15 13:40] LABS: ALBUMIN 3.5 G/DL (3.2-5.2); ALKALINE PHOSPHATASE 113 U/L (46-116); ALT/SGPT 42 U/L (7.0-40); AST/SGOT 46 U/L (<34); BILIRUBIN,DIRECT < 0.1 MG/DL (<0.4); BILIRUBIN,TOTAL 0.2 MG/DL (0.3-1.2); CPK CREATINE PHOSPHOKINASE 85 U/L (34-145); MB/CK RELATIVE INDEX 1.88 (< OR =4); TOTAL PROTEIN 6.8 G/DL (5.7-8.2)
[2023-01-15 13:44] LABS: HEMOGLOBIN 14.1 g/dl (12.0-15.5); PLATELET COUNT, AUTOMATED 96 10^3/uL (150-450)
[2023-01-15] MEDS ORDERED: ISOVUE-370 76% 100ML VIAL As Ordered ONE (14:02)
[2023-01-15 14:06] LABS: RSV AMPLIFICATION NEGATIVE (NEGATIVE)
[2023-01-15 14:10] LABS: CK-MB VALUE MASS 1.3 NG/ML (<3.6)
[2023-01-15 14:12] LABS: MB/CK RELATIVE INDEX 1.88 (< OR =4)
[2023-01-15 15:30] VITALS: BP 120/73
== END 2023-01-15 15:59 | disposition home or self-care (01) ==
LOC: M ED 11:40
DX: R07.9 Chest pain, unspecified (principal); R10.9 Unspecified abdominal pain; I10 Essential (primary) hypertension; D83.9 Common variable immunodeficiency, unspecified; Z98.84 Bariatric surgery status; F17.200 Nicotine dependence, unspecified, uncomplicated; F12.10 Cannabis abuse, uncomplicated; Z79.890 Hormone replacement therapy; Z79.899 Other long term (current) drug therapy; Z88.6 Allergy status to analgesic agent; Z88.8 Allergy status to other drugs, medicaments and biological substances; Z88.5 Allergy status to narcotic agent; Z91.040 Latex allergy status
CPT/HCPCS: 71045; 71275; 74176; 74177; 80047; 80076; 82150; 82550; 82553; 83605; 83690; 85025; 85049; 85055; 85610; 85730; 87040; 87631; 93005; 93041; 96361; 96374; 96375; 96376; 99285; J2550; J3010; Q9967

== ENCOUNTER → 2023-01-17 | Outpatient (CLI) | payer OTHER | LOC: M PLAIMG 10:55 | PROVIDERS: ATTEND Internal Medicine Hematology | DX: N20.0 Calculus of kidney (principal); Z90.49 Acquired absence of other specified parts of digestive tract ==

== ENCOUNTER 2023-01-24 16:50 | Inpatient (IN) | payer MEDICAID, OTHER ==
[~2023-01-24] VITALS: Ht 167.6 cm; Wt 72.9 kg
[~2023-01-24 16:50] MED LIST changes: -QUET100T2; +QUET100T2 PO
[2023-01-24 17:41] LABS: HCG, SERUM QUALITATIVE NEGATIVE (NEGATIVE)
[2023-01-24 17:42] LABS: BARBITURATES URINE NEGATIVE (NEGATIVE); BENZODIAZEPINES URINE NEGATIVE (NEGATIVE); COCAINE METABOLITE URINE NEGATIVE (NEGATIVE); ETHYL ALCOHOL (ETHANOL) 0.102 % (0.000-0.010); METHADONE URINE NEGATIVE (NEGATIVE); OPIATES URINE NEGATIVE (NEGATIVE); PHENCYCLIDINE URINE NEGATIVE (NEGATIVE)
[2023-01-24 17:43] LABS: ACETAMINOPHEN LEVEL < 2.0 UG/ML (10.0-20.0); CANNABINOIDS URINE NEGATIVE (NEGATIVE); CPK CREATINE PHOSPHOKINASE 328 U/L (34-145); SALICYLATE LEVEL 3.2 MG/DL (<30)
[2023-01-24 17:44] LABS: ALBUMIN 3.1 G/DL (3.2-5.2); ALKALINE PHOSPHATASE 126 U/L (46-116); ALT/SGPT 36 U/L (7.0-40); AST/SGOT 46 U/L (<34); BILIRUBIN,DIRECT < 0.1 MG/DL (<0.4); BILIRUBIN,TOTAL 0.2 MG/DL (0.3-1.2); BLOOD UREA NITROGEN 11 MG/DL (9-23); CALCIUM LEVEL 7.9 MG/DL (8.5-10.1); CARBON DIOXIDE LEVEL 26 MMOL/L (20-31); CHLORIDE LEVEL 109 MMOL/L (98-107); GLOMERULAR FILTRATION RATE > 60.0 (>58); GLUCOSE, FASTING 82 MG/DL (60-100); POTASSIUM SERUM 3.9 MMOL/L (3.5-5.1); SODIUM LEVEL 142 MMOL/L (136-145); TOTAL PROTEIN 5.8 G/DL (5.7-8.2)
[2023-01-24 17:46] LABS: THYROID STIMULATING HORMONE 1.738 uIU/ML (0.55-4.78)
[2023-01-24 17:47] LABS: AMPHETAMINES LEVEL URINE POSITIVE (NEGATIVE)
[2023-01-24 18:00] LABS: RSV AMPLIFICATION NEGATIVE (NEGATIVE)
[2023-01-24 18:01] LABS: BASO % 0.8 % (0.0-1.0); EOS # 0.1 10^3/uL (0.0-0.5); EOS % 3.1 % (0.0-3.0); HEMOGLOBIN 11.8 g/dl (12.0-15.5); LYMPH # 1.6 10^3/uL (1.5-5.0); LYMPH % 44.7 % (24.0-44.0); MEAN CORPUSCULAR HEMOGLOBIN 32.3 pg (27.0-33.0); MEAN CORPUSCULAR HGB CONC 32.8 g/dl (32.0-36.5); MEAN CORPUSCULAR VOLUME 98.6 fl (80.0-96.0); MONO # 0.3 10^3/uL (0.0-0.8); NEUTROPHILS # 1.6 10^3/uL (1.5-8.5); NEUTROPHILS % 44.1 % (36.0-66.0); PLATELET COUNT, AUTOMATED 110 10^3/uL (150-450); RED BLOOD COUNT 3.65 10^6/uL (4.00-5.40); WHITE BLOOD COUNT 3.6 10^3/uL (4.0-10.0)
[2023-01-25] MEDS ORDERED: OXAZEPAM 15MG CAP PO ONE (03:10)
[2023-01-25] MEDS ORDERED: ZALE10CA PO (08:22)
[2023-01-25] MEDS ORDERED: TAMS1CAP17 PO (08:22)
[2023-01-25] MEDS ORDERED: B-1100TA2 PO (08:22)
[2023-01-25] MEDS ORDERED: NAPR-849 PO (08:22)
[2023-01-25] MEDS ORDERED: MELO7.5T35 PO (08:22)
[2023-01-25] MEDS ORDERED: NICO4LOZ32 PO (08:22)
[2023-01-25] MEDS ORDERED: BACT800T5 PO (08:22)
[2023-01-25] MEDS ORDERED: ERGO500029 PO (08:22)
[2023-01-25] MEDS ORDERED: VARE1TAB2 PO (08:22)
[2023-01-25] MEDS ORDERED: CLON-412 PO (08:22)
[2023-01-25] MEDS ORDERED: HOME MED LIST COMPLETE! XX SCH (08:25)
[2023-01-25] MEDS: FLUTICASONE PROP 0.05% NASAL SPRAY 16 GM (FLONASE) SCH (09:00)
[2023-01-25] MEDS ORDERED: NICOTINE 14 MG/24 HR TRANSDERMAL TD SCH (09:00)
[2023-01-25 10:34] VITALS: BP 107/55
[2023-01-25 10:35] VITALS: BP 107/55
[2023-01-25] MEDS ORDERED: SUMAtriptan SUCCINATE 6MG/0.5ML VIAL SC PRN (13:20)
[2023-01-25] MEDS ORDERED: ALBUTEROL SULFATE 2.5MG/0.5ML INH NEB SOLN NEB PRN (13:20)
[2023-01-25] MEDS ORDERED: IPRATROPIUM HFA INHALER 12.9 GRAMS (ATROVENT HFA) INH PRN (13:20)
[2023-01-25 14:52] LABS: HEPATITIS B SURFACE ANTIGEN NEGATIVE (NEGATIVE)
[2023-01-25 15:06] LABS: HIV 1&2 SCREEN CENTAUR NEGATIVE (NEGATIVE)
[2023-01-25 15:13] LABS: HEPATITIS B CORE ANTIBODY IGM NEGATIVE (NEGATIVE)
[2023-01-25 15:34] VITALS: BP 122/70
[2023-01-25] MEDS: estradioL 1 MG TAB PO SCH (15:35)
[2023-01-25] MEDS: CREON-24 CAPSULE PO SCH ×2 (15:36→20:43)
[2023-01-25] MEDS: NIFEdipine 10 MG CAP PO SCH (15:36)
[2023-01-25] MEDS: FOLIC ACID 1MG TAB PO SCH (15:37)
[2023-01-25] MEDS: TAMSULOSIN 0.4 MG CAP PO SCH (15:37)
[2023-01-25] MEDS: MULTIVITAMINS/MINERALS THERAP 1 TAB PO SCH (15:37)
[2023-01-25] MEDS: THIAMINE 100 MG TAB PO SCH (15:38)
[2023-01-25] MEDS: NICOTINE 21MG/24HR 1 EA TRANSDERMAL TD SCH (15:39)
[2023-01-25] MEDS: cloNIDine 0.1MG TABLET PO SCH ×2 (15:40→20:42)
[2023-01-25 18:00] VITALS: BP 112/70
[2023-01-25 18:23] VITALS: BP 122/70
[2023-01-25] MEDS: ONDANSETRON 4MG ORAL DISINTEGRATING TAB PO PRN (19:09)
[2023-01-25] MEDS: BACTRIM 160MG/800MG DS TAB PO SCH (20:43)
[2023-01-25] MEDS: oxyBUTYnin 5 MG TAB PO SCH (20:43)
[2023-01-25] MEDS: FAMOTIDINE 20 MG TAB PO SCH (20:43)
[2023-01-25] MEDS: NEOSPORIN TOP OINT 15GM TOP SCH (20:43)
[2023-01-25] MEDS: CETIRIZINE (ZyrTEC) 10 MG TAB PO SCH (20:43)
[2023-01-25] MEDS: PANTOPRAZOLE 40MG TAB (PROTONIX) PO SCH (20:43)
[2023-01-25] MEDS ORDERED: SENOKOT S TAB PO PRN (21:20)
[2023-01-25 21:25] VITALS: BP 107/57
[2023-01-26] VITALS (7 sets, daily range): BP systolic 106–123; BP diastolic 56–74
[2023-01-26] MEDS: ONDANSETRON 4MG ORAL DISINTEGRATING TAB PO PRN (06:58)
[2023-01-26] MEDS: ACETAMINOPHEN TAB 650MG DOSE (2X325MG) PO PRN ×2 (06:58→15:23)
[2023-01-26] MEDS: MULTIVITAMINS/MINERALS THERAP 1 TAB PO SCH (08:30)
[2023-01-26] MEDS: CREON-24 CAPSULE PO SCH ×3 (08:30→21:38)
[2023-01-26] MEDS: FAMOTIDINE 20 MG TAB PO SCH ×2 (08:31→21:38)
[2023-01-26] MEDS: PANTOPRAZOLE 40MG TAB (PROTONIX) PO SCH ×2 (08:31→21:38)
[2023-01-26] MEDS: BACTRIM 160MG/800MG DS TAB PO SCH (08:31)
[2023-01-26] MEDS: TAMSULOSIN 0.4 MG CAP PO SCH (08:31)
[2023-01-26] MEDS: FOLIC ACID 1MG TAB PO SCH (08:31)
[2023-01-26] MEDS: oxyBUTYnin 5 MG TAB PO SCH ×2 (08:32→21:38)
[2023-01-26] MEDS: THIAMINE 100 MG TAB PO SCH (08:32)
[2023-01-26] MEDS: NIFEdipine 10 MG CAP PO SCH (08:34)
[2023-01-26] MEDS: FLUTICASONE PROP 0.05% NASAL SPRAY 16 GM (FLONASE) SCH (08:34)
[2023-01-26] MEDS: estradioL 1 MG TAB PO SCH (08:34)
[2023-01-26] MEDS: NEOSPORIN TOP OINT 15GM TOP SCH ×2 (08:39→21:38)
[2023-01-26] MEDS: NICOTINE 21MG/24HR 1 EA TRANSDERMAL TD SCH (08:39)
[2023-01-26] MEDS: cloNIDine 0.1MG TABLET PO SCH ×4 (08:39→21:40)
[2023-01-26] MEDS: CARIPRAZINE 3MG CAPSULE (VRAYLAR) PO SCH (11:10)
[2023-01-26] MEDS: busPIRone 10 MG TAB PO SCH ×2 (11:10→21:38)
[2023-01-26] MEDS: LORazepam 2 MG TAB PO PRN (11:11)
[2023-01-26] MEDS: PROMETHAZINE 25 MG TAB PO PRN (16:53)
[2023-01-26] MEDS: CETIRIZINE (ZyrTEC) 10 MG TAB PO SCH (21:38)
[2023-01-26] MEDS: QUEtiapine FUMARATE 100 MG TAB PO SCH (21:38)
[2023-01-26] MEDS: PRAZOSIN 1 MG CAP PO SCH (21:42)
[2023-01-27 06:00] VITALS: BP 103/59
[2023-01-27] MEDS: PROMETHAZINE 25 MG TAB PO PRN ×3 (06:41→17:08)
[2023-01-27] MEDS: ACETAMINOPHEN TAB 650MG DOSE (2X325MG) PO PRN ×2 (06:42→12:49)
[2023-01-27] MEDS: NIFEdipine 10 MG CAP PO SCH (08:35)
[2023-01-27] MEDS: CREON-24 CAPSULE PO SCH ×3 (08:37→17:07)
[2023-01-27] MEDS: cloNIDine 0.1MG TABLET PO SCH ×3 (08:40→20:56)
[2023-01-27] MEDS: TAMSULOSIN 0.4 MG CAP PO SCH (08:45)
[2023-01-27] MEDS: MULTIVITAMINS/MINERALS THERAP 1 TAB PO SCH (08:45)
[2023-01-27] MEDS: CARIPRAZINE 3MG CAPSULE (VRAYLAR) PO SCH (08:45)
[2023-01-27] MEDS: THIAMINE 100 MG TAB PO SCH (08:45)
[2023-01-27] MEDS: busPIRone 10 MG TAB PO SCH ×2 (08:45→20:54)
[2023-01-27] MEDS: NICOTINE 21MG/24HR 1 EA TRANSDERMAL TD SCH (08:46)
[2023-01-27] MEDS: estradioL 1 MG TAB PO SCH (08:46)
[2023-01-27] MEDS: FOLIC ACID 1MG TAB PO SCH (08:46)
[2023-01-27] MEDS: PANTOPRAZOLE 40MG TAB (PROTONIX) PO SCH ×2 (08:46→20:54)
[2023-01-27] MEDS: FLUTICASONE PROP 0.05% NASAL SPRAY 16 GM (FLONASE) SCH (08:47)
[2023-01-27] MEDS: oxyBUTYnin 5 MG TAB PO SCH ×2 (08:47→20:54)
[2023-01-27] MEDS: NEOSPORIN TOP OINT 15GM TOP SCH ×2 (08:48→20:54)
[2023-01-27] MEDS: ALBUTEROL 90 MCG/ACT 8GM HFA INHALER INH PRN (08:50)
[2023-01-27] MEDS: ONDANSETRON 4MG ORAL DISINTEGRATING TAB PO PRN (11:06)
[2023-01-27] MEDS: FAMOTIDINE 20 MG TAB PO SCH ×2 (11:09→20:54)
[2023-01-27 11:15] VITALS: BP 100/58
[2023-01-27] MEDS: LORazepam 2 MG TAB PO PRN (11:25)
[2023-01-27 12:25] VITALS: BP 120/76
[2023-01-27 16:15] VITALS: BP 138/81
[2023-01-27] MEDS: CETIRIZINE (ZyrTEC) 10 MG TAB PO SCH (20:54)
[2023-01-27] MEDS: QUEtiapine FUMARATE 100 MG TAB PO SCH (20:55)
[2023-01-27] MEDS: PRAZOSIN 1 MG CAP PO SCH (20:56)
[2023-01-28] VITALS (7 sets, daily range): BP systolic 110–134; BP diastolic 70–77
[2023-01-28] MEDS: ONDANSETRON 4MG ORAL DISINTEGRATING TAB PO PRN (06:33)
[2023-01-28] MEDS: ACETAMINOPHEN TAB 650MG DOSE (2X325MG) PO PRN ×2 (06:33→17:10)
[2023-01-28] MEDS: TAMSULOSIN 0.4 MG CAP PO SCH (07:46)
[2023-01-28] MEDS: CREON-24 CAPSULE PO SCH ×3 (07:46→17:10)
[2023-01-28] MEDS: FLUTICASONE PROP 0.05% NASAL SPRAY 16 GM (FLONASE) SCH (07:46)
[2023-01-28] MEDS: NEOSPORIN TOP OINT 15GM TOP SCH ×2 (07:47→20:52)
[2023-01-28] MEDS: THIAMINE 100 MG TAB PO SCH (07:47)
[2023-01-28] MEDS: CARIPRAZINE 3MG CAPSULE (VRAYLAR) PO SCH (07:47)
[2023-01-28] MEDS: FOLIC ACID 1MG TAB PO SCH (07:47)
[2023-01-28] MEDS: FAMOTIDINE 20 MG TAB PO SCH ×2 (07:47→20:52)
[2023-01-28] MEDS: PANTOPRAZOLE 40MG TAB (PROTONIX) PO SCH ×2 (07:48→20:52)
[2023-01-28] MEDS: cloNIDine 0.1MG TABLET PO SCH (07:48)
[2023-01-28] MEDS: estradioL 1 MG TAB PO SCH (07:48)
[2023-01-28] MEDS: busPIRone 10 MG TAB PO SCH ×2 (07:49→20:52)
[2023-01-28] MEDS: NICOTINE 21MG/24HR 1 EA TRANSDERMAL TD SCH (07:49)
[2023-01-28] MEDS: ALBUTEROL 90 MCG/ACT 8GM HFA INHALER INH PRN (07:49)
[2023-01-28] MEDS: oxyBUTYnin 5 MG TAB PO SCH ×2 (07:49→20:52)
[2023-01-28] MEDS: MULTIVITAMINS/MINERALS THERAP 1 TAB PO SCH (07:49)
[2023-01-28] MEDS: NIFEdipine 10 MG CAP PO SCH (07:56)
[2023-01-28] MEDS: LORazepam 2 MG TAB PO PRN (08:58)
[2023-01-28] MEDS ORDERED: cloNIDine 0.1MG TABLET PO PRN (11:55)
[2023-01-28] MEDS: PROMETHAZINE 25 MG TAB PO PRN ×3 (12:13→20:56)
[2023-01-28] MEDS: CETIRIZINE (ZyrTEC) 10 MG TAB PO SCH (20:52)
[2023-01-28] MEDS: QUEtiapine FUMARATE 100 MG TAB PO SCH (20:52)
[2023-01-28] MEDS: PRAZOSIN 1 MG CAP PO SCH (20:54)
[2023-01-29] VITALS (8 sets, daily range): BP systolic 106–161; BP diastolic 56–79
[2023-01-29] MEDS: ACETAMINOPHEN TAB 650MG DOSE (2X325MG) PO PRN ×2 (06:48→16:59)
[2023-01-29] MEDS: PROMETHAZINE 25 MG TAB PO PRN ×3 (06:48→16:58)
[2023-01-29] MEDS: NICOTINE 21MG/24HR 1 EA TRANSDERMAL TD SCH (07:49)
[2023-01-29] MEDS: CARIPRAZINE 3MG CAPSULE (VRAYLAR) PO SCH (07:50)
[2023-01-29] MEDS: CREON-24 CAPSULE PO SCH ×3 (07:50→17:00)
[2023-01-29] MEDS: estradioL 1 MG TAB PO SCH (07:50)
[2023-01-29] MEDS: FOLIC ACID 1MG TAB PO SCH (07:50)
[2023-01-29] MEDS: oxyBUTYnin 5 MG TAB PO SCH ×2 (07:50→20:49)
[2023-01-29] MEDS: MULTIVITAMINS/MINERALS THERAP 1 TAB PO SCH (07:51)
[2023-01-29] MEDS: busPIRone 10 MG TAB PO SCH ×2 (07:51→20:49)
[2023-01-29] MEDS: FAMOTIDINE 20 MG TAB PO SCH ×2 (07:51→20:49)
[2023-01-29] MEDS: TAMSULOSIN 0.4 MG CAP PO SCH (07:52)
[2023-01-29] MEDS: THIAMINE 100 MG TAB PO SCH (07:52)
[2023-01-29] MEDS: PANTOPRAZOLE 40MG TAB (PROTONIX) PO SCH ×2 (07:52→20:48)
[2023-01-29] MEDS: NIFEdipine 10 MG CAP PO SCH (07:52)
[2023-01-29] MEDS: FLUTICASONE PROP 0.05% NASAL SPRAY 16 GM (FLONASE) SCH (07:53)
[2023-01-29] MEDS: NEOSPORIN TOP OINT 15GM TOP SCH ×2 (07:53→20:45)
[2023-01-29] MEDS: LORazepam 2 MG TAB PO PRN (10:09)
[2023-01-29] MEDS: PRAZOSIN 1 MG CAP PO SCH (20:48)
[2023-01-29] MEDS: QUEtiapine FUMARATE 100 MG TAB PO SCH (20:49)
[2023-01-29] MEDS: CETIRIZINE (ZyrTEC) 10 MG TAB PO SCH (20:49)
[2023-01-30 06:10] VITALS: BP 124/71
[2023-01-30] MEDS: CREON-24 CAPSULE PO SCH (07:22)
[2023-01-30] MEDS: PROMETHAZINE 25 MG TAB PO PRN (07:22)
[2023-01-30 07:59] VITALS: BP 142/93
[2023-01-30] MEDS: estradioL 1 MG TAB PO SCH (08:06)
[2023-01-30] MEDS: FAMOTIDINE 20 MG TAB PO SCH (08:07)
[2023-01-30] MEDS: MULTIVITAMINS/MINERALS THERAP 1 TAB PO SCH (08:08)
[2023-01-30] MEDS: CARIPRAZINE 3MG CAPSULE (VRAYLAR) PO SCH (08:08)
[2023-01-30] MEDS: THIAMINE 100 MG TAB PO SCH (08:09)
[2023-01-30] MEDS: TAMSULOSIN 0.4 MG CAP PO SCH (08:09)
[2023-01-30] MEDS: oxyBUTYnin 5 MG TAB PO SCH (08:09)
[2023-01-30] MEDS: PANTOPRAZOLE 40MG TAB (PROTONIX) PO SCH (08:09)
[2023-01-30] MEDS: busPIRone 10 MG TAB PO SCH (08:09)
[2023-01-30] MEDS: FOLIC ACID 1MG TAB PO SCH (08:10)
[2023-01-30] MEDS: NEOSPORIN TOP OINT 15GM TOP SCH (08:11)
[2023-01-30] MEDS: FLUTICASONE PROP 0.05% NASAL SPRAY 16 GM (FLONASE) SCH (08:11)
[2023-01-30] MEDS: NICOTINE 21MG/24HR 1 EA TRANSDERMAL TD SCH (08:11)
[2023-01-30] MEDS: NIFEdipine 10 MG CAP PO SCH (08:12)
[2023-01-30] MEDS ORDERED: BUSP10TA PO (08:28)
[2023-01-30] MEDS ORDERED: QUET100T2 PO (08:28)
[2023-01-30] MEDS ORDERED: NEOM28OI TOP (08:28)
[2023-01-30] MEDS ORDERED: MINI1CAP PO (08:28)
[2023-01-30] MEDS ORDERED: VRAY3CAP PO (08:28)
[2023-01-30 09:20] VITALS: BP 142/93
== END 2023-01-30 09:39 | disposition home or self-care (01) | DRG 753 ==
LOC: M ED 16:50 → M ED INP 01-25 05:21 → M PSY 01-25 10:37
PROVIDERS: ADMIT Psychiatry & Neurology Psychiatry; ATTEND Student in an Organized Health Care Education/Training Program
DX: F31.9 Bipolar disorder, unspecified (principal); F15.151 Other stimulant abuse with stimulant-induced psychotic disorder with hallucinations; I10 Essential (primary) hypertension; G62.9 Polyneuropathy, unspecified; F10.10 Alcohol abuse, uncomplicated; G47.00 Insomnia, unspecified; T50.912A Poisoning by multiple unspecified drugs, medicaments and biological substances, intentional self-harm, initial encounter; T14.91XA Suicide attempt, initial encounter; J45.909 Unspecified asthma, uncomplicated; N32.81 Overactive bladder; G43.909 Migraine, unspecified, not intractable, without status migrainosus; K21.9 Gastro-esophageal reflux disease without esophagitis; F17.210 Nicotine dependence, cigarettes, uncomplicated; Z71.6 Tobacco abuse counseling; Z79.899 Other long term (current) drug therapy; Z88.5 Allergy status to narcotic agent; Z88.6 Allergy status to analgesic agent; Z88.8 Allergy status to other drugs, medicaments and biological substances; Z91.040 Latex allergy status; Z91.410 Personal history of adult physical and sexual abuse; Z63.8 Other specified problems related to primary support group; Z98.84 Bariatric surgery status; Z90.79 Acquired absence of other genital organ(s)

== ENCOUNTER → 2023-02-07 | Outpatient (REF) | payer OTHER ==
[~2023-02-07] MED LIST changes: +B-1100TA2 PO; +BUSP10TA PO; +CLON-412 PO; +ERGO500029 PO; -LOSA100T45 PO; +LOSA100T46 PO; +MINI1CAP PO; +NAPR-849 PO; +NEOM28OI TOP; +NICO4LOZ32 PO; +VARE1TAB2 PO
[2023-02-07 16:37] LABS: APPEARANCE, URINE CLEAR (CLEAR); BACTERIA, URINE AUTO NEGATIVE (NEGATIVE); BILIRUBIN, URINE AUTO NEGATIVE (NEGATIVE); BLOOD, URINE BLOOD NEGATIVE (NEGATIVE); COLOR, URINE STRAW (YELLOW); GLUCOSE, URINE (UA) AUTO NEGATIVE (NEGATIVE); KETONE, URINE AUTO NEGATIVE (NEGATIVE); LEUKOCYTE ESTERASE, URINE AUTO NEGATIVE (NEGATIVE); NITRITE, URINE AUTO NEGATIVE (NEGATIVE); PROTEIN, URINE AUTO NEGATIVE (NEGATIVE); RBC, URINE AUTO 0 /HPF (0-3); SPECIFIC GRAVITY URINE AUTO 1.004 (1.002-1.035); SQUAMOUS EPITHELIAL CELL UR AU 0 /HPF (0-6); UROBILINOGEN, URINE AUTO 0.2 mg/dL (0.0-2.0); WBC, URINE AUTO 1 /HPF (0-3)
== END ==
LOC: M SMT 15:30
PROVIDERS: ATTEND Urology
DX: Z87.440 Personal history of urinary (tract) infections (principal)

== ENCOUNTER → 2023-02-17 | Outpatient (CLI) | payer OTHER | LOC: M LAB 13:17 | PROVIDERS: ATTEND Internal Medicine Hematology | DX: R79.89 Other specified abnormal findings of blood chemistry (principal) ==

== ENCOUNTER → 2023-02-17 | Outpatient (CLI) | payer OTHER ==
[2023-02-17 14:03] LABS: BASO # 0.1 10^3/uL (0.0-0.2); BASO % 0.9 % (0.0-1.0); EOS # 0.1 10^3/uL (0.0-0.5); EOS % 0.9 % (0.0-3.0); HEMATOCRIT 40.3 % (36.0-47.0); HEMOGLOBIN 13.5 g/dl (12.0-15.5); LYMPH % 37.7 % (24.0-44.0); MEAN CORPUSCULAR HEMOGLOBIN 31.8 pg (27.0-33.0); MEAN CORPUSCULAR HGB CONC 33.5 g/dl (32.0-36.5); MEAN CORPUSCULAR VOLUME 94.8 fl (80.0-96.0); MONO # 0.3 10^3/uL (0.0-0.8); MONO % 5.1 % (2.0-8.0); NEUTROPHILS # 2.9 10^3/uL (1.5-8.5); NEUTROPHILS % 55.2 % (36.0-66.0); PLATELET COUNT, AUTOMATED 131 10^3/uL (150-450); RED BLOOD COUNT 4.25 10^6/uL (4.00-5.40); WHITE BLOOD COUNT 5.3 10^3/uL (4.0-10.0)
== END ==
LOC: M LAB 13:21
PROVIDERS: ATTEND Allergy & Immunology Allergy
DX: D83.9 Common variable immunodeficiency, unspecified (principal)

== ENCOUNTER → 2023-04-09 | Outpatient (REF) | payer OTHER ==
[2023-04-09 17:38] LABS: APPEARANCE, URINE CLEAR (CLEAR); BACTERIA, URINE AUTO NEGATIVE (NEGATIVE); BILIRUBIN, URINE AUTO NEGATIVE (NEGATIVE); BLOOD, URINE BLOOD NEGATIVE (NEGATIVE); COLOR, URINE STRAW (YELLOW); GLUCOSE, URINE (UA) AUTO NEGATIVE (NEGATIVE); KETONE, URINE AUTO NEGATIVE (NEGATIVE); LEUKOCYTE ESTERASE, URINE AUTO NEGATIVE (NEGATIVE); MUCUS, URINE SMALL (NEGATIVE); NITRITE, URINE AUTO NEGATIVE (NEGATIVE); PROTEIN, URINE AUTO NEGATIVE (NEGATIVE); RBC, URINE AUTO 0 /HPF (0-3); SPECIFIC GRAVITY URINE AUTO 1.008 (1.002-1.035); SQUAMOUS EPITHELIAL CELL UR AU 0 /HPF (0-6); UROBILINOGEN, URINE AUTO 0.2 mg/dL (0.0-2.0); WBC, URINE AUTO 0 /HPF (0-3)
== END ==
LOC: M SMT 16:54
PROVIDERS: ATTEND Urology
DX: N20.0 Calculus of kidney (principal)

== ENCOUNTER 2023-04-15 19:47 | Emergency (ER) | payer OTHER ==
[~2023-04-15] VITALS: Ht 167.6 cm; Wt 70.5 kg
[2023-04-16 01:24] VITALS: BP 116/67; TEMP 98.6; O2SAT 95
[2023-04-16 01:35] LABS: BASO % 0.8 % (0.0-1.0); EOS # 0.1 10^3/uL (0.0-0.5); HEMATOCRIT 36.3 % (36.0-47.0); HEMOGLOBIN 12.1 g/dl (12.0-15.5); LYMPH % 41.4 % (24.0-44.0); MEAN CORPUSCULAR HEMOGLOBIN 30.5 pg (27.0-33.0); MEAN CORPUSCULAR HGB CONC 33.3 g/dl (32.0-36.5); MEAN CORPUSCULAR VOLUME 91.4 fl (80.0-96.0); MONO # 0.5 10^3/uL (0.0-0.8); MONO % 9.6 % (2.0-8.0); NEUTROPHILS # 2.3 10^3/uL (1.5-8.5); PLATELET COUNT, AUTOMATED 105 10^3/uL (150-450); RED BLOOD COUNT 3.97 10^6/uL (4.00-5.40); WHITE BLOOD COUNT 4.9 10^3/uL (4.0-10.0)
[2023-04-16 01:49] LABS: ERYTHROCYTE SEDIMENTATION RATE 26 mm/hr (0-20)
[2023-04-16 01:56] LABS: BLOOD UREA NITROGEN 8 MG/DL (9-23); CALCIUM LEVEL 9.4 MG/DL (8.5-10.1); CARBON DIOXIDE LEVEL 24 MMOL/L (20-31); CHLORIDE LEVEL 109 MMOL/L (98-107); CREATININE FOR GFR 0.56 MG/DL (0.55-1.30); GLOMERULAR FILTRATION RATE > 60.0 (>58); GLUCOSE, FASTING 88 MG/DL (60-100); POTASSIUM SERUM 3.7 MMOL/L (3.5-5.1); SODIUM LEVEL 137 MMOL/L (136-145)
[2023-04-16 01:57] LABS: RSV AMPLIFICATION NEGATIVE (NEGATIVE)
== END 2023-04-16 04:50 | disposition left against medical advice (07) ==
LOC: M ED 19:47
DX: Z53.21 Procedure and treatment not carried out due to patient leaving prior to being seen by health care provider (principal)

== ENCOUNTER → 2023-04-23 | Outpatient (CLI) | payer OTHER | LOC: M RAD 13:07 | PROVIDERS: ATTEND Urology | DX: N20.0 Calculus of kidney (principal); R14.0 Abdominal distension (gaseous) ==

== ENCOUNTER 2023-08-05 12:49 | Emergency (ER) | payer MEDICAID ==
[~2023-08-05] VITALS: Ht 167.6 cm; Wt 74.3 kg
[~2023-08-05 12:49] MED LIST changes: +ADV500INH INH; -AMIT25TA17 PO; +AMIT25TA19 PO; -GABA-283 PO; +GABA-284 PO; -LUNE3TAB36 PO; +LUNE3TAB50 PO; -MISO200T56 PO; +MISO200T83 PO; -OXYB5TAB10 PO; +OXYB5TAB11 PO; +PRAZ2CAP PO; +VRAY6CAP PO
[2023-08-05 14:31] LABS: BASO % 0.9 % (0.0-1.0); EOS # 0.1 10^3/uL (0.0-0.5); EOS % 1.1 % (0.0-3.0); HEMATOCRIT 38.8 % (36.0-47.0); HEMOGLOBIN 12.7 g/dl (12.0-15.5); LYMPH # 1.8 10^3/uL (1.5-5.0); LYMPH % 40.6 % (24.0-44.0); MEAN CORPUSCULAR HEMOGLOBIN 30.5 pg (27.0-33.0); MEAN CORPUSCULAR HGB CONC 32.7 g/dl (32.0-36.5); MONO # 0.3 10^3/uL (0.0-0.8); MONO % 6.9 % (2.0-8.0); NEUTROPHILS # 2.3 10^3/uL (1.5-8.5); NEUTROPHILS % 50.3 % (36.0-66.0); PLATELET COUNT, AUTOMATED 123 10^3/uL (150-450); RED BLOOD COUNT 4.17 10^6/uL (4.00-5.40); WHITE BLOOD COUNT 4.5 10^3/uL (4.0-10.0)
[2023-08-05 14:55] LABS: LIPASE 42 U/L (12-53)
[2023-08-05 14:57] LABS: ALBUMIN 3.4 G/DL (3.2-5.2); ALKALINE PHOSPHATASE 117 U/L (46-116); ALT/SGPT 23 U/L (7.0-40); AST/SGOT 31 U/L (<34); BILIRUBIN,DIRECT < 0.1 MG/DL (<0.4); BILIRUBIN,TOTAL 0.2 MG/DL (0.3-1.2); TOTAL PROTEIN 6.6 G/DL (5.7-8.2)
[2023-08-05 15:17] LABS: HCG, SERUM QUALITATIVE NEGATIVE (NEGATIVE)
[2023-08-05] MEDS: ONDANSETRON 4MG 2ML VIAL IV ONE ×2 (15:55→16:11)
[2023-08-05] MEDS ORDERED: ACETAMINOPHEN *IV* 1,000 MG in IV 1 EA IV ONE (15:55)
[2023-08-05] MEDS ORDERED: NS 1,000 ML IV ONE (15:55)
[2023-08-05] MEDS ORDERED: PROMETHAZINE 25MG/ML 1ML VIAL IV ONE (16:20)
[2023-08-05] MEDS ORDERED: ISOVUE-370 76% 100ML VIAL As Ordered ONE (16:40)
[2023-08-05] MEDS ORDERED: DICY-61 PO (18:09)
[2023-08-05] MEDS ORDERED: DICYCLOMINE 10 MG CAP PO ONE (18:10)
[2023-08-05 18:32] VITALS: BP 130/72; TEMP 97; O2SAT 99
== END 2023-08-05 18:37 | disposition home or self-care (01) ==
LOC: M ED 12:49
DX: R10.12 Left upper quadrant pain (principal); E78.5 Hyperlipidemia, unspecified; J45.909 Unspecified asthma, uncomplicated; R51.9 Headache, unspecified; F17.200 Nicotine dependence, unspecified, uncomplicated; Z98.84 Bariatric surgery status; Z87.442 Personal history of urinary calculi; Z88.5 Allergy status to narcotic agent; Z88.6 Allergy status to analgesic agent; Z88.8 Allergy status to other drugs, medicaments and biological substances; Z91.040 Latex allergy status; Z79.52 Long term (current) use of systemic steroids; Z79.83 Long term (current) use of bisphosphonates; Z79.1 Long term (current) use of non-steroidal anti-inflammatories (NSAID); Z79.899 Other long term (current) drug therapy
CPT/HCPCS: 74177; 80047; 80076; 83690; 84702; 84703; 85025; 96361; 96365; 96375; 99284; J0131; J2550; Q9967

== ENCOUNTER → 2023-09-09 | Outpatient (REF) | payer MEDICAID ==
[~2023-09-09] MED LIST changes: +DICY-61 PO; -FLUT50SP17; +FLUTISP; +TOPI-21 PO; -TOPI-254 PO
== END ==
LOC: M PLALAB 13:21
PROVIDERS: ATTEND Obstetrics & Gynecology
DX: N89.8 Other specified noninflammatory disorders of vagina (principal)

== ENCOUNTER → 2023-09-24 | Outpatient (CLI) | payer OTHER ==
[2023-09-24 11:58] LABS: APPEARANCE, URINE CLEAR (CLEAR); BACTERIA, URINE AUTO NEGATIVE (NEGATIVE); BILIRUBIN, URINE AUTO NEGATIVE (NEGATIVE); BLOOD, URINE BLOOD NEGATIVE (NEGATIVE); COLOR, URINE YELLOW (YELLOW); GLUCOSE, URINE (UA) AUTO NEGATIVE (NEGATIVE); KETONE, URINE AUTO NEGATIVE (NEGATIVE); LEUKOCYTE ESTERASE, URINE AUTO NEGATIVE (NEGATIVE); NITRITE, URINE AUTO NEGATIVE (NEGATIVE); PROTEIN, URINE AUTO NEGATIVE (NEGATIVE); RBC, URINE AUTO 0 /HPF (0-3); SPECIFIC GRAVITY URINE AUTO 1.008 (1.002-1.035); SQUAMOUS EPITHELIAL CELL UR AU 0 /HPF (0-6); UROBILINOGEN, URINE AUTO 0.2 mg/dL (0.0-2.0); WBC, URINE AUTO 0 /HPF (0-3)
[2023-09-24 12:00] LABS: HEMATOCRIT 39.7 % (36.0-47.0); HEMOGLOBIN 12.8 g/dl (12.0-15.5); MEAN CORPUSCULAR HEMOGLOBIN 30.5 pg (27.0-33.0); MEAN CORPUSCULAR HGB CONC 32.2 g/dl (32.0-36.5); MEAN CORPUSCULAR VOLUME 94.7 fl (80.0-96.0); RED BLOOD COUNT 4.19 10^6/uL (4.00-5.40); WHITE BLOOD COUNT 3.7 10^3/uL (4.0-10.0)
[2023-09-24 12:25] LABS: FERRITIN 51.9 NG/ML (7.3-270.7); THYROID STIMULATING HORMONE 1.873 uIU/ML (0.55-4.78)
[2023-09-24 12:27] LABS: FREE T4 0.83 NG/DL (0.89-1.76)
[2023-09-24 12:38] LABS: PLATELET COUNT, AUTOMATED 93 10^3/uL (150-450)
[2023-09-24 12:51] LABS: PERCENT SATURATION 4.8 % (13.2-45.0)
== END ==
LOC: M PLALAB 08:11
PROVIDERS: ATTEND Internal Medicine Hematology
DX: Z98.84 Bariatric surgery status (principal); D83.9 Common variable immunodeficiency, unspecified; Z72.0 Tobacco use

== ENCOUNTER 2023-09-26 06:07 | Outpatient (CLI) | payer OTHER ==
[~2023-09-26] VITALS: Ht 167.6 cm; Wt 72.3 kg
[2023-09-26] MEDS ORDERED: diphenhydrAMINE 50MG/ML VIAL IV PRN (07:01)
[2023-09-26] MEDS ORDERED: methylPREDNISolone 125MG 2ML VIAL IV PRN (07:01)
[2023-09-26] MEDS ORDERED: EPINEPHrine INJ 1 MG/ML 1ML AMP IM PRN (07:01)
[2023-09-26] MEDS ORDERED: NS 1,000 ML IV SCH (07:01)
[2023-09-26] MEDS ORDERED: ALBUTEROL SULFATE 2.5MG/0.5ML INH NEB SOLN INH PRN (07:01)
[2023-09-26 07:05] VITALS: BP 129/70; O2SAT 99
[2023-09-26] MEDS ORDERED: IRON SUCROSE 200 MG in NS 100 ML IV ONE (07:20)
[2023-09-26 09:10] VITALS: BP 128/77; O2SAT 98
== END 2023-09-26 09:10 ==
LOC: M INFU 06:07
PROVIDERS: ATTEND Internal Medicine Hematology
DX: D50.9 Iron deficiency anemia, unspecified (principal); Z88.1 Allergy status to other antibiotic agents; Z88.2 Allergy status to sulfonamides; Z88.6 Allergy status to analgesic agent; Z88.5 Allergy status to narcotic agent; Z88.8 Allergy status to other drugs, medicaments and biological substances; Z91.040 Latex allergy status
CPT/HCPCS: 96365; J1756

== ENCOUNTER → 2023-11-05 | Outpatient (CLI) | payer OTHER ==
[2023-11-05 15:38] LABS: BASO % 0.7 % (0.0-1.0); EOS # 0.1 10^3/uL (0.0-0.5); EOS % 1.4 % (0.0-3.0); HEMATOCRIT 41.5 % (36.0-47.0); HEMOGLOBIN 13.6 g/dl (12.0-15.5); LYMPH # 2.4 10^3/uL (1.5-5.0); LYMPH % 42.5 % (24.0-44.0); MEAN CORPUSCULAR HEMOGLOBIN 31.1 pg (27.0-33.0); MEAN CORPUSCULAR HGB CONC 32.8 g/dl (32.0-36.5); MONO # 0.5 10^3/uL (0.0-0.8); MONO % 7.8 % (2.0-8.0); NEUTROPHILS # 2.7 10^3/uL (1.5-8.5); NEUTROPHILS % 47.3 % (36.0-66.0); PLATELET COUNT, AUTOMATED 124 10^3/uL (150-450); RED BLOOD COUNT 4.37 10^6/uL (4.00-5.40); WHITE BLOOD COUNT 5.7 10^3/uL (4.0-10.0)
== END ==
LOC: M LAB 14:37
PROVIDERS: ATTEND Allergy & Immunology Allergy
DX: D83.9 Common variable immunodeficiency, unspecified (principal)

== ENCOUNTER → 2023-11-05 | Outpatient (CLI) | payer OTHER ==
[2023-11-05 15:37] LABS: HEMATOCRIT 41.2 % (36.0-47.0); HEMOGLOBIN 13.3 g/dl (12.0-15.5); MEAN CORPUSCULAR HEMOGLOBIN 30.6 pg (27.0-33.0); MEAN CORPUSCULAR HGB CONC 32.3 g/dl (32.0-36.5); MEAN CORPUSCULAR VOLUME 94.9 fl (80.0-96.0); PLATELET COUNT, AUTOMATED 129 10^3/uL (150-450); RED BLOOD COUNT 4.34 10^6/uL (4.00-5.40); WHITE BLOOD COUNT 5.8 10^3/uL (4.0-10.0)
[2023-11-05 15:43] LABS: INR 0.91
[2023-11-05 15:58] LABS: ALBUMIN 3.2 G/DL (3.2-5.2); ALKALINE PHOSPHATASE 84 U/L (46-116); ALT/SGPT 42 U/L (7.0-40); AST/SGOT 36 U/L (<34); BILIRUBIN,TOTAL 0.2 MG/DL (0.3-1.2); BLOOD UREA NITROGEN 15 MG/DL (9-23); CALCIUM LEVEL 9.4 MG/DL (8.5-10.1); CARBON DIOXIDE LEVEL 28 MMOL/L (20-31); CHLORIDE LEVEL 111 MMOL/L (98-107); CREATININE FOR GFR 0.94 MG/DL (0.55-1.30); GLOMERULAR FILTRATION RATE > 60.0 (>58); GLUCOSE, FASTING 67 MG/DL (60-100); POTASSIUM SERUM 4.6 MMOL/L (3.5-5.1); SODIUM LEVEL 142 MMOL/L (136-145); TOTAL PROTEIN 6.4 G/DL (5.7-8.2)
== END ==
LOC: M LAB 14:41
PROVIDERS: ATTEND Internal Medicine Gastroenterology
DX: R19.7 Diarrhea, unspecified (principal); D83.9 Common variable immunodeficiency, unspecified; Z98.84 Bariatric surgery status; R16.1 Splenomegaly, not elsewhere classified; F10.10 Alcohol abuse, uncomplicated; R13.10 Dysphagia, unspecified

== ENCOUNTER → 2023-11-06 | Outpatient (REF) | payer OTHER | LOC: M LAB REF 12:10 | PROVIDERS: ATTEND Internal Medicine Gastroenterology | DX: R19.7 Diarrhea, unspecified (principal) ==

== ENCOUNTER → 2023-12-08 | Outpatient (CLI) | payer OTHER ==
[~2023-12-08] MED LIST changes: +ACET325C5 PO; -OXYB5TAB11 PO; +OXYB5TAB14 PO
== END ==
LOC: M SOG 11:05
PROVIDERS: ATTEND Physician Assistant
DX: S82.401A Unspecified fracture of shaft of right fibula, initial encounter for closed fracture (principal); Y92.9 Unspecified place or not applicable; Y93.9 Activity, unspecified

== ENCOUNTER → 2023-12-24 | Outpatient (REF) | payer OTHER ==
[2023-12-24 16:08] LABS: APPEARANCE, URINE CLOUDY (CLEAR); BACTERIA, URINE AUTO NEGATIVE (NEGATIVE); BILIRUBIN, URINE AUTO NEGATIVE (NEGATIVE); BLOOD, URINE BLOOD NEGATIVE (NEGATIVE); CALCIUM OXALATE CRYSTALS SMALL; COLOR, URINE YELLOW (YELLOW); GLUCOSE, URINE (UA) AUTO NEGATIVE (NEGATIVE); KETONE, URINE AUTO NEGATIVE (NEGATIVE); LEUKOCYTE ESTERASE, URINE AUTO 2+ (NEGATIVE); MUCUS, URINE SMALL (NEGATIVE); NITRITE, URINE AUTO NEGATIVE (NEGATIVE); PROTEIN, URINE AUTO NEGATIVE (NEGATIVE); RBC, URINE AUTO 3 /HPF (0-3); SPECIFIC GRAVITY URINE AUTO 1.013 (1.002-1.035); SQUAMOUS EPITHELIAL CELL UR AU 1 /HPF (0-6); UROBILINOGEN, URINE AUTO 0.2 mg/dL (0.0-2.0); WBC, URINE AUTO 120 /HPF (0-3)
== END ==
LOC: M SFHCPLAZ 15:15
PROVIDERS: ATTEND Internal Medicine Hematology
DX: N39.0 Urinary tract infection, site not specified (principal)

== ENCOUNTER → 2023-12-29 | Outpatient (CLI) | payer OTHER | LOC: M SOG 07:52 | PROVIDERS: ATTEND Physician Assistant | DX: S82.401A Unspecified fracture of shaft of right fibula, initial encounter for closed fracture (principal); Y92.9 Unspecified place or not applicable; Y93.9 Activity, unspecified ==

== ENCOUNTER → 2023-12-31 | Outpatient (CLI) | payer OTHER ==
[2023-12-31 17:25] LABS: APPEARANCE, URINE HAZY (CLEAR); BACTERIA, URINE AUTO NEGATIVE (NEGATIVE); BILIRUBIN, URINE AUTO NEGATIVE (NEGATIVE); BLOOD, URINE BLOOD NEGATIVE (NEGATIVE); COLOR, URINE YELLOW (YELLOW); GLUCOSE, URINE (UA) AUTO NEGATIVE (NEGATIVE); KETONE, URINE AUTO TRACE mg/dL (NEGATIVE); LEUKOCYTE ESTERASE, URINE AUTO NEGATIVE (NEGATIVE); MUCUS, URINE SMALL (NEGATIVE); NITRITE, URINE AUTO NEGATIVE (NEGATIVE); PROTEIN, URINE AUTO NEGATIVE (NEGATIVE); RBC, URINE AUTO 2 /HPF (0-3); SPECIFIC GRAVITY URINE AUTO 1.024 (1.002-1.035); SQUAMOUS EPITHELIAL CELL UR AU 1 /HPF (0-6); UROBILINOGEN, URINE AUTO 0.2 mg/dL (0.0-2.0); WBC, URINE AUTO 9 /HPF (0-3)
== END ==
LOC: M PLALAB 15:11
PROVIDERS: ATTEND Internal Medicine Hematology
DX: N30.00 Acute cystitis without hematuria (principal); G43.719 Chronic migraine without aura, intractable, without status migrainosus

== ENCOUNTER → 2024-01-15 | Outpatient (CLI) | payer OTHER | LOC: M RAD 07:20 | PROVIDERS: ATTEND Internal Medicine Hematology | DX: R16.1 Splenomegaly, not elsewhere classified (principal) ==

== ENCOUNTER → 2024-01-20 | Outpatient (CLI) | payer OTHER | LOC: M SOG 13:31 | PROVIDERS: ATTEND Physician Assistant | DX: M89.8X6 Other specified disorders of bone, lower leg (principal) ==

== ENCOUNTER → 2024-01-22 | Outpatient (CLI) | payer OTHER | LOC: M WHC 11:38 | PROVIDERS: ATTEND Obstetrics & Gynecology | DX: Z12.31 Encounter for screening mammogram for malignant neoplasm of breast (principal) ==

== ENCOUNTER → 2024-01-29 | Outpatient (CLI) | payer OTHER | LOC: M SOG 09:46 | PROVIDERS: ATTEND Physician Assistant | DX: M25.572 Pain in left ankle and joints of left foot (principal) ==

== ENCOUNTER → 2024-01-30 | Outpatient (CLI) | payer OTHER | LOC: M RAD 09:31 | PROVIDERS: ATTEND Physician Assistant | DX: M79.661 Pain in right lower leg (principal) ==

== ENCOUNTER → 2024-03-11 | Outpatient (CLI) | payer OTHER ==
[~2024-03-11] MED LIST changes: -AZEL0.055 NARES; +AZEL1SPR4 NARES; +DOXY-323 PO; -DOXY-443 PO; +ONDA-282 PO; -ONDA4TAB6 PO
[2024-03-11 15:18] LABS: ALBUMIN 3.3 G/DL (3.2-5.2); ALKALINE PHOSPHATASE 135 U/L (46-116); ALT/SGPT 38 U/L (7.0-40); AST/SGOT 30 U/L (<34); BILIRUBIN,DIRECT 0.1 MG/DL (<0.4); BILIRUBIN,TOTAL 0.3 MG/DL (0.3-1.2); IRON (FE) 65 UG/DL (50-170); PERCENT SATURATION 17.2 % (13.2-45.0); TOTAL IRON BINDING CAPACITY 377 UG/DL (250-425); TOTAL PROTEIN 6.4 G/DL (5.7-8.2)
[2024-03-11 15:20] LABS: FERRITIN 37.2 NG/ML (7.3-270.7)
[2024-03-11 15:33] LABS: HEPATITIS B SURFACE ANTIGEN NEGATIVE (NEGATIVE)
[2024-03-11 15:54] LABS: HEPATITIS C VIRUS ABY INDEX 0.03 INDEX (<0.8)
== END ==
LOC: M LAB 13:50
PROVIDERS: ATTEND Internal Medicine Gastroenterology
DX: R94.5 Abnormal results of liver function studies (principal); R16.1 Splenomegaly, not elsewhere classified; Z98.84 Bariatric surgery status; K44.9 Diaphragmatic hernia without obstruction or gangrene; K21.9 Gastro-esophageal reflux disease without esophagitis; K31.84 Gastroparesis; K59.00 Constipation, unspecified

== ENCOUNTER → 2024-03-30 | Outpatient (CLI) | payer OTHER ==
[2024-03-30 12:40] LABS: BASO % 0.6 % (0.0-1.0); EOS # 0.1 10^3/uL (0.0-0.5); EOS % 1.2 % (0.0-3.0); HEMATOCRIT 38.8 % (36.0-47.0); LYMPH # 1.7 10^3/uL (1.5-5.0); LYMPH % 33.7 % (24.0-44.0); MEAN CORPUSCULAR HEMOGLOBIN 31.4 pg (27.0-33.0); MEAN CORPUSCULAR HGB CONC 33.5 g/dl (32.0-36.5); MEAN CORPUSCULAR VOLUME 93.7 fl (80.0-96.0); MONO # 0.3 10^3/uL (0.0-0.8); MONO % 6.3 % (2.0-8.0); NEUTROPHILS # 2.8 10^3/uL (1.5-8.5); NEUTROPHILS % 57.8 % (36.0-66.0); PLATELET COUNT, AUTOMATED 130 10^3/uL (150-450); RED BLOOD COUNT 4.14 10^6/uL (4.00-5.40); WHITE BLOOD COUNT 4.9 10^3/uL (4.0-10.0)
[2024-03-30 12:59] LABS: HEMOGLOBIN A1c 4.7 % (4.0-6.0)
[2024-03-30 13:03] LABS: MALB URINE SIEMENS < 3.0 MG/L; MAU/CREAT RATIO 16.6 MCG/MG (0.0-30.0)
[2024-03-30 13:21] LABS: ALBUMIN 3.4 G/DL (3.2-5.2); ALKALINE PHOSPHATASE 126 U/L (46-116); ALT/SGPT 35 U/L (7.0-40); AST/SGOT 30 U/L (<34); BILIRUBIN,TOTAL 0.4 MG/DL (0.3-1.2); BLOOD UREA NITROGEN 21 MG/DL (9-23); CALCIUM LEVEL 9.2 MG/DL (8.5-10.1); CARBON DIOXIDE LEVEL 24 MMOL/L (20-31); CHLORIDE LEVEL 108 MMOL/L (98-107); CHOLESTEROL LEVEL 171 MG/DL (<200); CHOLESTEROL RISK RATIO 2.55 (<5); GLOMERULAR FILTRATION RATE > 60.0 (>58); GLUCOSE, FASTING 85 MG/DL (60-100); HDL CHOLESTEROL 66.8 MG/DL (>40); NON-HDL-C 104.2 MG/DL; SODIUM LEVEL 138 MMOL/L (136-145); TOTAL 25(OH) VITAMIN D 67.7 NG/ML (20.0-100.0); TOTAL PROTEIN 6.5 G/DL (5.7-8.2); TRIGLYCERIDES LEVEL 91 MG/DL (<150)
[2024-03-30 13:23] LABS: FREE T4 0.94 NG/DL (0.89-1.76); THYROID STIMULATING HORMONE 0.695 uIU/ML (0.55-4.78)
[2024-03-30 13:28] LABS: VITAMIN B12 LEVEL > 2000 PG/ML (211-911)
== END ==
LOC: M PLALAB 11:35
PROVIDERS: ATTEND Internal Medicine Hematology
DX: Z98.84 Bariatric surgery status (principal)

== ENCOUNTER → 2024-05-19 | Outpatient (REF) | payer OTHER ==
[~2024-05-19] MED LIST changes: -NIFE10CA2 PO; +NIFE10CA61 PO; +NIFE1CAP2 PO; -NIFE20CA PO
[2024-05-19 15:32] LABS: APPEARANCE, URINE CLEAR (CLEAR); BACTERIA, URINE AUTO NEGATIVE (NEGATIVE); BILIRUBIN, URINE AUTO NEGATIVE (NEGATIVE); BLOOD, URINE BLOOD NEGATIVE (NEGATIVE); COLOR, URINE COLORLESS (YELLOW); GLUCOSE, URINE (UA) AUTO NEGATIVE (NEGATIVE); KETONE, URINE AUTO NEGATIVE (NEGATIVE); LEUKOCYTE ESTERASE, URINE AUTO NEGATIVE (NEGATIVE); NITRITE, URINE AUTO NEGATIVE (NEGATIVE); PROTEIN, URINE AUTO NEGATIVE (NEGATIVE); RBC, URINE AUTO 1 /HPF (0-3); SPECIFIC GRAVITY URINE AUTO 1.005 (1.002-1.035); SQUAMOUS EPITHELIAL CELL UR AU 0 /HPF (0-6); UROBILINOGEN, URINE AUTO 0.2 mg/dL (0.0-2.0); WBC, URINE AUTO 0 /HPF (0-3)
== END ==
LOC: M SFHCPLAZ 15:11
PROVIDERS: ATTEND Internal Medicine Hematology
DX: N20.0 Calculus of kidney (principal)

== ENCOUNTER → 2024-06-03 | Outpatient (CLI) | payer OTHER | LOC: M PLAIMG 14:02 | PROVIDERS: ATTEND Internal Medicine Hematology | DX: N20.0 Calculus of kidney (principal); Z98.84 Bariatric surgery status ==

== ENCOUNTER → 2024-08-09 | Outpatient (CLI) | payer OTHER ==
[~2024-08-09] MED LIST changes: -DOXY-323 PO; +DOXY-441 PO; +GABA-1172 PO; -GABA-282 PO
[2024-08-09 13:10] LABS: BASO % 0.8 % (0.0-1.0); EOS # 0.1 10^3/uL (0.0-0.5); EOS % 1.6 % (0.0-3.0); HEMATOCRIT 39.7 % (36.0-47.0); LYMPH % 40.4 % (24.0-44.0); MEAN CORPUSCULAR HEMOGLOBIN 30.4 pg (27.0-33.0); MEAN CORPUSCULAR HGB CONC 32.7 g/dl (32.0-36.5); MEAN CORPUSCULAR VOLUME 92.8 fl (80.0-96.0); MONO # 0.3 10^3/uL (0.0-0.8); MONO % 6.4 % (2.0-8.0); NEUTROPHILS # 2.5 10^3/uL (1.5-8.5); NEUTROPHILS % 50.6 % (36.0-66.0); PLATELET COUNT, AUTOMATED 128 10^3/uL (150-450); RED BLOOD COUNT 4.28 10^6/uL (4.00-5.40)
== END ==
LOC: M LAB 12:04
PROVIDERS: ATTEND Allergy & Immunology Allergy
DX: D83.9 Common variable immunodeficiency, unspecified (principal)

== ENCOUNTER → 2024-09-17 | Outpatient (REF) | payer OTHER ==
[~2024-09-17] MED LIST changes: -ADV500INH INH; +ADVA1AER10 INH; -CYCL5TAB PO; +CYCL5TAB4 PO
[2024-09-17 13:15] LABS: APPEARANCE, URINE CLEAR (CLEAR); BACTERIA, URINE AUTO NEGATIVE (NEGATIVE); BILIRUBIN, URINE AUTO NEGATIVE (NEGATIVE); BLOOD, URINE BLOOD NEGATIVE (NEGATIVE); COLOR, URINE YELLOW (YELLOW); GLUCOSE, URINE (UA) AUTO NEGATIVE (NEGATIVE); KETONE, URINE AUTO NEGATIVE (NEGATIVE); LEUKOCYTE ESTERASE, URINE AUTO NEGATIVE (NEGATIVE); NITRITE, URINE AUTO NEGATIVE (NEGATIVE); PROTEIN, URINE AUTO NEGATIVE (NEGATIVE); RBC, URINE AUTO 0 /HPF (0-3); SPECIFIC GRAVITY URINE AUTO 1.009 (1.002-1.035); SQUAMOUS EPITHELIAL CELL UR AU 0 /HPF (0-6); UROBILINOGEN, URINE AUTO 0.2 mg/dL (0.0-2.0); WBC, URINE AUTO 0 /HPF (0-3)
== END ==
LOC: M LAB REF 12:33
PROVIDERS: ATTEND Urology
DX: R10.9 Unspecified abdominal pain (principal)

== ENCOUNTER → 2024-10-27 | Outpatient (REF) | payer OTHER | LOC: M SFHCPLAZ 12:39 | PROVIDERS: ATTEND Nurse Practitioner Adult Health | DX: R09.81 Nasal congestion (principal) ==

== ENCOUNTER → 2024-10-29 | Outpatient (CLI) | payer OTHER | LOC: M RAD 13:36 | PROVIDERS: ATTEND Urology | DX: N20.0 Calculus of kidney (principal) ==

== ENCOUNTER → 2024-11-16 | Outpatient (CLI) | payer OTHER ==
[2024-11-16 15:18] LABS: HEMATOCRIT 40.8 % (36.0-47.0); HEMOGLOBIN 13.3 g/dl (12.0-15.5); MEAN CORPUSCULAR HEMOGLOBIN 29.8 pg (27.0-33.0); MEAN CORPUSCULAR HGB CONC 32.6 g/dl (32.0-36.5); MEAN CORPUSCULAR VOLUME 91.5 fl (80.0-96.0); PLATELET COUNT, AUTOMATED 134 10^3/uL (150-450); RED BLOOD COUNT 4.46 10^6/uL (4.00-5.40); WHITE BLOOD COUNT 5.3 10^3/uL (4.0-10.0)
[2024-11-16 15:33] LABS: ALBUMIN 3.5 G/DL (3.2-5.2); ALKALINE PHOSPHATASE 105 U/L (35-104); ALT/SGPT 27 U/L (7.0-40); AST/SGOT 31 U/L (<34); BILIRUBIN,TOTAL 0.4 MG/DL (0.3-1.2); BLOOD UREA NITROGEN 22 MG/DL (9-23); CALCIUM LEVEL 9.3 MG/DL (8.5-10.1); CARBON DIOXIDE LEVEL 27 MMOL/L (20-31); CHLORIDE LEVEL 107 MMOL/L (98-107); CREATININE FOR GFR 0.74 MG/DL (0.55-1.30); GLOMERULAR FILTRATION RATE > 60.0 (>58); GLUCOSE, FASTING 83 MG/DL (60-100); SODIUM LEVEL 142 MMOL/L (136-145); TOTAL PROTEIN 7.1 G/DL (5.7-8.2)
[2024-11-16 15:34] LABS: FERRITIN 12.7 NG/ML (7.3-270.7); TOTAL 25(OH) VITAMIN D 88.2 NG/ML (20.0-100.0)
[2024-11-16 15:35] LABS: VITAMIN B12 LEVEL > 2000 PG/ML (211-911)
[2024-11-16 15:45] LABS: HEMOGLOBIN A1c 4.9 % (4.0-6.0)
== END ==
LOC: M PLALAB 12:43
PROVIDERS: ATTEND Family Medicine
DX: Z98.84 Bariatric surgery status (principal)

== ENCOUNTER 2025-04-15 08:30 | Outpatient (RCR) | payer OTHER ==
[~2025-04-15 08:30] MED LIST changes: +AMIT10TA11 PO; -AMIT10TA7 PO; -AMIT24CA7 PO; +LUBI24CA32 PO; -PREG50CA PO; +PREG50CA87 PO; +PROZ20CA12 PO
== END 2025-05-05 ==
LOC: M PT 08:30
PROVIDERS: ATTEND Student in an Organized Health Care Education/Training Program
DX: R42 Dizziness and giddiness (principal)

== ENCOUNTER → 2025-07-06 | Outpatient (REF) | payer OTHER | LOC: M SFHCPLAZ 16:50 | PROVIDERS: ATTEND Family Medicine | DX: R30.0 Dysuria (principal) ==

== ENCOUNTER → 2025-08-12 | Outpatient (REF) | payer OTHER ==
[2025-08-12 15:50] LABS: BASO # 0.0 10^3/uL (0.0-0.2); BASO % 0.8 % (0.0-1.0); EOS # 0.1 10^3/uL (0.0-0.5); EOS % 1.0 % (0.0-3.0); LYMPH # 1.9 10^3/uL (1.5-5.0); LYMPH % 39.9 % (24.0-44.0); MONO # 0.3 10^3/uL (0.0-0.8); MONO % 6.2 % (2.0-8.0); NEUTROPHILS # 2.5 10^3/uL (1.5-8.5); NEUTROPHILS % 51.9 % (36.0-66.0); PLATELET COUNT, AUTOMATED 119 10^3/uL (150-450)
== END ==
LOC: M LAB REF 15:22
PROVIDERS: ATTEND Nurse Practitioner Family
DX: D83.9 Common variable immunodeficiency, unspecified (principal)